=== PATIENT | female | born 1940 | race Caucasian/White ===

== ENCOUNTER 2017-11-06 19:26 | Emergency (ER) | payer MEDICARE, OTHER, SELFPAY ==
[2017-11-06 19:27] VITALS: BP 200/88; PULSE 82; PULSE 90; RESP 17; RESP 18; TEMP 36.4; O2SAT 97; O2SAT 98; BMI 33.3
[2017-11-06 19:46] VITALS: BP 180/83; PULSE 91; RESP 16; O2SAT 97
--- NOTE | 2017-11-06 19:57 | CT_ITS ---
STUDY: CT BRAIN WITHOUT CONTRAST REASON FOR EXAM: Female, 77 years old. Dizziness. RADIATION DOSAGE (If Supplied By Facility): CTDIvol = ( 60.81 ) mGy, DLP = ( 1044.28 ) mGycm TECHNIQUE: Transaxial CT imaging of the brain was performed without administration of intravenous contrast material. Individualized dose optimization techniques were used for this CT. COMPARISON: None. FINDINGS: Normal soft tissue structures. Normal calvarium. There is moderate cerebral atrophy with widening of the extra-axial spaces and ventricular dilatation. There are areas of decreased attenuation within the white matter tracts of the supratentorial brain, consistent with microvascular disease changes. Normal basal ganglia and thalami. Normal brainstem. Normal cerebellum. There is no intracranial hemorrhage. There are no findings of an acute ischemic infarction. Normal visualized paranasal sinuses. CT/Brain/Head without Contrast IMPRESSION: Senescent changes with no evidence of acute intracranial bleed, mass or ischemia. Electronically Signed: Walter Landa DO at 20:37 EDT , Service support ,
--- NOTE | 2017-11-06 20:24 | RAD_ITS ---
STUDY: X-RAY CHEST REASON FOR EXAM: Female, 77 years old. Cough with dizziness. TECHNIQUE: PA and lateral views of the chest. COMPARISON: None. FINDINGS: Prominent interstitial markings are present extending from the hilar region to the lung base bilaterally. Peribronchial cuffing and inflammation is noted. Left lower lobe early airspace disease is not excluded. There is no demonstrated pleural abnormality. Normal size heart. Normal mediastinum and leno. Normal visualized pulmonary arteries. There is atherosclerotic calcification of the aortic arch with tortuosity. Normal visualized thoracic spine. Normal visualized ribs, clavicles, and shoulders. There is no demonstrated abnormality of the visualized soft tissue structures of the upper abdomen. RAD/Chest PA and Lateral IMPRESSION: Findings consistent with peribronchial and termination and interstitial edema with left lower lobe early airspace disease not excluded. Recommend follow-up imaging to document resolution after appropriate treatment. Electronically Signed: Walter Landa DO at 20:38 EDT , Service support ,
--- NOTE | 2017-11-06 21:17 | ED.DCSUM_ITS ---
- ER Visit Summary Date of Service: 11/06/17 Chief Complaint: Cough, URI symptoms History of Present Illness: The patient is a 77 F whose had cough and head congestion for the past 3 days. She has had multiple ill contacts at [facility]. Today she had sinus pressure and she initially reported dizziness, although she describes it more as a semi-sensation because her sinuses are full. She did note her blood pressure to be elevated today. She has been taking some over-the -counter cold medicine and cough drops which may be contributing to this. Physical Examination: Vital signs include a blood pressure of 200/88, temperature 97.5, heart rate 82, respiratory rate 18, pulse ox 97% on room air. Patient is sitting upright in bed. She is alert and talkative. Head neck examination reveals TMs to be clear bilaterally. She has mild posterior pharyngeal drainage. She has bilateral anterior cervical lymphadenopathy. There is no meningismus. Heart is regular rate and rhythm. Lung sounds are clear. Abdomen is soft nontender. Neuro exam is normal. Test Results: Two-view chest x-ray shows peribronchial cuffing. Left lower lobe early airspace disease cannot be excluded. CT the head shows senescent changes without bleed. Normal sinuses are noted. Emergency Department Course and Treatment: Repeat vital signs include blood pressures in the 180s systolic. Patient will avoid using the [id number] cold medicine. She will be treated with a course of Levaquin. Treatment Plan: [] Disposition: Discharge Impression: Early left lower lobe pneumonia This note was generated with [employer] dictation software. It may contain incorrect words, spelling, and punctuation that were not noted in review of the chart prior to signing ED Disposition - Plan for ED Patient: Disposition: Home or Assisted Living Chief Complaint: Dizziness Instructions: ED Pneumonia Adult Prescriptions: Levofloxacin [Levaquin] 750 mg PO DAILY #4 tablet Referrals: Randy Diaz MD [Primary Care Provider] - 1 Week
[2017-11-06] MEDS: levoFLOXacin 750 MG Tablet PO (21:30)
[2017-11-06 21:37] VITALS: BP 185/87; PULSE 88; RESP 16
== END 2017-11-06 21:38 | disposition home or self-care (01) ==
PROVIDERS: Emergency Provider Emergency Medicine; Family Provider Family Medicine; PCP Family Medicine
DX: J18.9 Pneumonia, unspecified organism (principal); I48.91 Unspecified atrial fibrillation; I10 Essential (primary) hypertension; Z87.891 Personal history of nicotine dependence
CPT/HCPCS: 70450; 71046; 99283

== ENCOUNTER → 2017-12-17 08:57 | Outpatient (CLI) | payer MEDICARE, OTHER, SELFPAY | PROVIDERS: Family Provider Family Medicine; PCP Family Medicine; Visit Provider Family Medicine | DX: J18.1 Lobar pneumonia, unspecified organism (principal) | CPT/HCPCS: 71046 ==

== ENCOUNTER → 2018-02-06 10:02 | Outpatient (CLI) | payer MEDICARE, OTHER, SELFPAY ==
[2018-02-06 11:43] LABS: Absolute Lymphocyte Count 2.11 X10^3/ul (0.83-4.51); Absolute Neutrophil Count 5.2 X10^3/uL (2.0-7.7); Basophil# 0.02 X10^3/uL; Basophil% 0.2 % (0-1); Eosinophil# 0.24 X10^3/uL; Eosinophils% 2.9 % (0-5); Hematocrit 41.8 % (37-47); Hemoglobin 13.7 g/dl (12.0-15.0); Lymphocyte # 2.11 X10^3/ul (4.0); Lymphocyte % 25.9 % (19-41); Mean Corp Hgb Conc 32.8 g/gl (32-36); Mean Corpuscular Hgb 30.6 pg (27.0-32.0); Mean Corpuscular Volume 93.5 fL (81-99); Monocyte# 0.54 X10^3/uL; Monocyte% 6.6 % (0-10); Neutrophil # 5.19 X10^3/uL (2.7-7.7); Neutrophil % 63.9 % (47-70); Platelet Count 234 K/mm3 (150-450); RBC Distribution Width CV 13.1 % (11.6-14.6); RBC Distribution Width SD 44.7 fl (35.1-43.9); Red Blood Count 4.47 M/mm3 (4.2-5.4); White Blood Count 8.1 K/mm3 (4.4-11.0)
[2018-02-06 11:44] LABS: POSITIVE COUNT NO; POSITIVE DIFFERENTIAL NO; POSITIVE MORPHOLOGY NO
[2018-02-06 12:15] LABS: Thyroid Stim Hormone (TSH) 2.25 uIU/mL (0.358-3.74)
== END ==
PROVIDERS: Family Provider Family Medicine; PCP Family Medicine; Referring Provider Internal Medicine Cardiovascular Disease; Visit Provider Internal Medicine Cardiovascular Disease
DX: I48.0 Paroxysmal atrial fibrillation (principal)
CPT/HCPCS: 36415; 84443; 85025

== ENCOUNTER → 2018-02-24 08:28 | Outpatient (CLI) | payer MEDICARE, OTHER, SELFPAY ==
--- NOTE | 2018-02-24 08:29 | ECHOD_ITS ---
Reason For Study: AFIB Procedure This was a 2D Doppler, Color Flow transthoracic echocardiogram. Exam performed in department. Left Ventricle Normal LV size. Left ventricular systolic function is normal. The estimated ejection fraction is 65 %. Unable to assess diastolic dysfunction due to arrhythmia. No regional wall motion abnormalities noted. Right Ventricle Normal RV size. Normal systolic function. Atria The left atrium is mildly enlarged. Normal right atrium. Mitral Valve Normal mitral valve. Mild (1+) eccentric mitral valve insufficiency. Tricuspid Valve Normal tricuspid valve. Mild tricuspid valve insufficiency. Pulmonary artery systolic pressure is 34 mmHg. Aortic Valve Normal aortic valve. Pulmonic Valve Normal pulmonic valve. Great Vessels Normal aortic root. The pulmonary artery is normal size. Normal inferior vena cava. Pericardium/Pleural No pericardial effusion. MMode/2D Measurements & Calculations LVIDd: 4.3 cm IVSd: 1.0 cm Ao root diam: 2.7 cm LVIDs: 3.0 cm LVPWd: 0.93 cm RVDd: 3.2 cm FS: 30.1 % LAV(MOD-bp): 62.9 ml LA A4 area: 21.4 cm2 LA dimension(2D): 4.1 cm LAV(MOD-bp) Indexed: 32.2 ml/m2 LAV(MOD-sp2): 54.4 ml LAV(MOD-sp4): 62.0 ml RA A4 area: 18.6 cm2 Time Measurements MV dec time: 0.19 sec Doppler Measurements & Calculations MV E max tomás: 112.8 cm/sec Ao V2 max: 108.6 cm/sec LV V1 max: 93.1 cm/sec Ao max P.8 mmHg LV V1 max P.5 mmHg PA V2 max: 130.3 cm/sec TR max tomás: 274.1 cm/sec TR max P.3 mmHg Interpretation Summary Normal LV size. Left ventricular systolic function is normal. The estimated ejection fraction is 65 %. Unable to assess diastolic dysfunction due to arrhythmia. Mild (1+) eccentric mitral valve insufficiency. Ordering Physician: Jeremy Mchugh Referring Physician: BENNY CARMONA Performed By: Anna Randle, HERMINIO, RVT
== END ==
PROVIDERS: Family Provider Family Medicine; PCP Family Medicine; Referring Provider Internal Medicine Cardiovascular Disease; Visit Provider Internal Medicine Cardiovascular Disease
DX: I48.0 Paroxysmal atrial fibrillation (principal)
CPT/HCPCS: 93306

== ENCOUNTER → 2018-03-20 10:34 | Outpatient (CLI) | payer MEDICARE, OTHER, SELFPAY ==
[2018-03-20 09:23] VITALS: BMI 31.8
[2018-03-20 13:05] LABS: Anion Gap 7 (5-15); BUN 16 mg/dL (7-18); BUN/Creat Ratio 17.6 RATIO (10-20); Calcium,Total 8.9 mg/dL (8.5-10.1); Chloride 107 mmol/L (98-107); Creatinine, Serum 0.91 mg/dL (0.55-1.02); EST Glomerular Filtration Rate 64 mL/min (>60); Est Glom Filt Rate - Afr Amer 77 mL/min (>60); Glucose 102 mg/dL (74-106); Magnesium 2.3 mg/dL (1.6-2.6); Potassium 3.9 mmol/L (3.5-5.1); Sodium Level 139 mmol/L (136-145)
--- OUTSIDE RECORDS SUMMARY | 2018-05-15 12:46 | XMS RPT_ITS ---
:1940 Author Organization OHIP Support Name Relationship Address Phone R Unavailable Unavailable Unavailable KAMERON GRANADOS Unavailable [address] + [place] [address] MARINO RAMIREZ Unavailable [address] + [place] [address] R Unavailable Unavailable Unavailable KAMERON GRANADOS Unavailable [address] + [place] [address] PICHARDO RAMIREZ Unavailable [address] + [place] [address] R Unavailable Unavailable Unavailable KAMERON GRANADOS Unavailable [address] + [place] [address] PICHARDO, RAMIREZ Unavailable [address] + [place] [address] R Unavailable Unavailable Unavailable KAMERON GRANADOS Unavailable [address] + [place] [address] PICHARDO, RAMIREZ Unavailable [address] + [place] [address] R Unavailable Unavailable Unavailable KAMERON GRANADOS Unavailable [address] + [place] [address] PICHARDO RAMIREZ Unavailable [address] + [place] [address] R Unavailable Unavailable Unavailable KAMERON GRANADOS Unavailable [address] + [place] [address] PICHARDO RAMIREZ Unavailable [address] + [place] [address] R Unavailable Unavailable Unavailable KAMERON GRANADOS Unavailable [address] + [place] [address] PICHARDO RAMIREZ Unavailable [address] + [place] [address] AMANDA GRANADOS Unavailable + R Unavailable Unavailable Unavailable KAMERON GRANADOS Unavailable [address] + [place] [address] RAMIREZ PICHARDO Unavailable [address] + [place] [address] Care Team Providers Name Role Phone STENCEL, IBRAHIMA Primary Care Unavailable Bhavya Copeland Attending Unavailable STENCEL, IBRAHIMA Attending Unavailable STENCEL, IBRAHIMA Referring Unavailable STENCEL, IBRAHIMA Primary Care Unavailable Lolita, Jeremy Attending Unavailable STENCEL, IBRAHIMA Referring Unavailable Lolita, Jeremy Attending Unavailable Lolita, Cardwell Referring Unavailable STENCEL, IBRAHIMA Primary Care Unavailable Lolita, Cardwell Attending Unavailable Lolita, Jeremy Referring Unavailable Ry, Benny Primary Care Unavailable Lolita, Cardwell Attending Unavailable Lolita, Cardwell Referring Unavailable [place], Benny Primary Care Unavailable Lolita, Cardwell Consulting Unavailable Demetrice Greer Attending Unavailable STENCEL, IBRAHIMA Referring Unavailable GreerDemetrice zuniga Attending Unavailable Ry, Benny Primary Care Unavailable RY, BENNY Calloway Attending Unavailable RY, BENNY Calloway Referring Unavailable RY, BENNY Calloway Referring Unavailable RY, BENNY Calloway Referring Unavailable RY, BENNY Calloway Referring Unavailable Stencel, Ibrahima Admitting Unavailable Stencel, Ibrahima Attending Unavailable Stencel, Ibrahima Primary Care Unavailable Stencel, Ibrahima Admitting Unavailable Stencel, Ibrahima Attending Unavailable Stencel, Ibrahima Primary Care Unavailable Stencel, Ibrahima Attending Unavailable Stencel, Ibrahima Primary Care Unavailable Stencel, Ibrahima Admitting Unavailable Stencel, Ibrahima Attending Unavailable Stencel, Ibrahima Primary Care Unavailable Stencel, Ibrahima Attending Unavailable Stencel, Ibrahima Primary Care Unavailable Stencel, Ibrahima Attending Unavailable Stencel, Ibrahima Primary Care Unavailable Stencel, Ibrahima Attending Unavailable Stencel, Ibrahima Primary Care Unavailable Stencel, Ibrahima Primary Care Unavailable PROBLEMS PROBLEMS DATE TYPE CONDITION / CODE ATTENDING STATUS SOURCE 03/20/2018 Unknown I48.91 - Greer, Active [facility] Unspecified atrial Demetrice [facility] I48.91(ICD-10) Repository 02/24/2018 Unknown I48.0 - Paroxysmal Lolita, Jeremy Active [facility] atrial [facility] I48.0(ICD-10) Repository 02/20/2018 Active Encounter for NA Active [facility] screening for [facility] [place] malignant neoplasm Repository of colon / Z12.11(ICD-10) 02/06/2018 Unknown I10 - Essential Lolita, Cardwell Active [place] (primary) [facility] hypertension / Hospital I10(ICD-10) Repository 12/17/2017 Unknown J18.1 - Lobar STENCEL, Active [place] pneumonia, IBRAHIMA [facility] unspecified Hospital organism / Repository J18.1(ICD-10) PROCEDURES PROCEDURES No Procedure Records FoundRESULTS RESULTS CARDIOLOGY VISIT Observed: 03/24/2018 Status: F Source: [facility] REPORT 8:41 AM [facility] REPOSITORY [facility] [address] [place] [address] OFFICE VISIT Date of Service: 03/20/18 MR#: [id number] Acct: [id number] Name: TRICIA GRANADOS Rep #: [id number] : 1940 Provider: Demetrice Greer Age/Sex: 77/F Location: [facility] Status: Signed HPI HPI Chief Complaint: Follow-up visit. Details: TRICIA GRANADOS, is a 77 F who presents to the office today for a 6-week follow-up. She has a history of hypertension and paroxysmal atrial fibrillation. Patient was in our office 6 weeks ago and noted to be in atrial fibrillation. She is unaware of this. She underwent an echocardiogram. Heart function is normal. Atrium is mildly enlarged. No valvular issues. She does not have any palpitations. She does not have any lightheadedness, dizziness, syncopal episodes. She does not have any lower extremity edema. Her exercise tolerance is stable. She does not have any chest heaviness or tightness. Did have a discussion with patient regarding the financial cost of Eliquis. She is currently working with the drug [employer] to see if she qualifies for patient assistance. Intake Vital Signs03/20/18 Height 5 ft 6 in 03/20/18 Weight: 197 lb 03/20/18 Body Mass Index (BMI) 31.8 03/20/18 Blood Pressure 162/78 H Intake Visit Reasons: 6 wk f/up [employer] Worker Required: No Accompanied by: None Is patient in pain?: No Allergies caffeine Adverse Reaction (Verified 03/20/18 09:26) Other Medications alprazolam 0.5 mg tablet 0.5 mg PO BID-TID PRN 02/06/18 [History Confirmed 03/20/18] apixaban 5 mg tablet 5 mg PO BID #60 tab 02/06/18 [Rx Confirmed 03/20/18] diltiazem CD 180 mg capsule,extended release 24 hr 180 mg PO DAILY 02/06/18 [History Confirmed 03/20/18] losartan 100 mg tablet 100 mg PO DAILY 03/20/18 [History Confirmed 03/20/18] metoprolol succinate ER 50 mg tablet,extended release 24 hr 50 mg PO DAILY #30 tab 03/20/18 [Rx Confirmed 03/20/18] Ejection fraction %: 65 to 70 PFSH Medical History Essential (primary) hypertension (Chronic) Surgical History Hx of appendectomy (Resolved) H/O oophorectomy (Resolved) History of cholecystectomy (Resolved) H/O: hysterectomy (Resolved) Family History Father CVA (cerebral vascular accident) Mother Hypertension Heart disease CHF (congestive heart failure) Social History Smoking Status: Former smoker how long ago did patient quit smokin years age alcohol intake: never caffeine: No ROS Const Const: Negative for weakness, fatigue, fever(s) or headache(s) Eyes Eyes: Negative for blind spots, loss of peripheral vision or transient loss of vision ENT ENT: Negative for headache(s), dizziness, tinnitus or Nosebleed/epistaxis Cardio Chest Pain: No Palpitations: No Edema: None Muscle aches with walking: None Resp Respiratory: Negative for SOB with activity, SOB at rest, SOB orthopnea\SOB lying down or Cough GI GI: Negative nausea, vomiting, heartburn or vomiting blood/hematemesis : Negative for hematuria Musc Musc: Negative for muscle aches/ myalgia Neuro Neuro: Negative for weakness, headache(s), dizziness, near syncope, syncope, lightheadedness or orthostatic symptoms Vasile Hematologic/Lymphatic: Negative for easy bleeding Endo Endo: Negative for fatigue Cardiology Exam Const Appearance: cooperative, no acute distress and well developed Orientation: alert, awake and oriented x3 Head Head: normocephalic and atraumatic Mouth: moist mucous membranes Eyes General: appearance normal, both eyes and all related structures Conjunctivae: conjunctivae normal Pupils: PERRL EOM: EOM intact bilaterally Neck Neck: normal visual inspection, no lymphadenopathy and no JVD Carotids: Negative bruit Neck Mass: Negative Neck mass Chest Chest inspection: normal inspection of the chest and symmetric chest movement Auscultation: Bilateral: Clear to Auscultation Cardio Palpation: normal PMI Rate: regular rate Rhythm: irregularly irregular Heart sounds: S1 normal and S2 normal; negative rub, gallop or murmur GI GI: normal to inspection, soft, no hepatosplenomegaly and bowel sounds present; negative tender Neuro General: alert, awake, oriented x3, CN's II-XI intact bilaterally and moves all extremities Extremities Pulses: Normal: Right Posterior Tibial Pulse, Left Posterior Tibial Pulse, Right Radial Pulse, Left Radial Pulse Lower Extremity Edema: None: Bilateral Psych Psychological: normal affect Supplemental Info Echocardiogram in 2018 demonstrated Normal LV size. Left ventricular systolic function is normal. The estimated ejection fraction is 65 %. Unable to assess diastolic dysfunction due to arrhythmia. Mild (1+) eccentric mitral valve insufficiency. Assessment AND Plan 1. Essential hypertension I10 Plan - SAMANTHA Oconnor Blood pressure is elevated however patient does have a log of blood pressure readings. It is better controlled at home. She states that is normally high when she sees a physician. 2. Persistent atrial fibrillation I48.1 Plan - SAMANTHA Oconnor Patient appears to still be remaining in atrial fibrillation. Did have a long discussion with patient regarding a cardioversion. Patient wishes to think about this. She states that since she is not symptomatic at this time she would like to wait until after the holidays to reconsider this. She will continue with her current rate limiting medication in addition to her factor Xa inhibitor. She is aware that if she does not qualify for patient assistance for her Eliquis as it is costly for her that we may switch her to Coumadin. She wishes to not do this if possible. Plan Detail Other Orders Orders: Other Medications New: Refilled: Additional Comments - SAMANTHA Oconnor The above patient was discussed with Dr. Mchugh, he agrees with plan of care. Thank you for allowing us to participate in patient's plan of care, if you have any questions please do not hesitate to call. This note was generated using a voice recognition system and there may be incorrect words, spelling or punctuation errors that were not noted when reviewing the office note prior to saving. 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) Coding Level of Care Code Off vis,est,level 3 Diagnoses Essential hypertension I10 Persistent atrial fibrillation I48.1 Atrial fibrillation type: persistent Coding Level of Care Code Off vis,est,level 3 Diagnoses Essential hypertension I10 Persistent atrial fibrillation I48.1 Atrial fibrillation type: persistent 03/20/18 1025 <Electronically signed by Demetrice SINGH> Date Demetrice SINGH 03/24/18 0841<Electronically signed by Jeremy Mchugh MD> Cosigner Signature: Date (if applicable) Jeremy Mchugh MD CC: BASIC METABOLIC Collected: 03/20/2018 Status: F Source: [facility] PROFILE (BMP) 10:35 AM [facility] REPOSITORY TYPE CODE TESTS RESULT OUT OF RANGE REFERENCE UNITS LAB L501.0100 74-106 mg/dL Normal GLU 102 Result Comment: Fasting Glucose result from 100 to 125 mg/dL suggests IMPAIRED HOMEOSTASIS per A.D.A. criteria. Please note revised GLUCOSE reference range effective 2017. LAB L501.1000 7-18 mg/dL Normal BUN 16 LAB L501.1100 0.55-1.02 mg/dL Normal CREAT,SERUM 0.91 Result Comment: The validity of the calculated GFR AND GFRAA in patients over 70 years has not been determined. Clinical correlation is essential. LAB L501.1110 >60 mL/min Normal EST GFR 64 Result Comment: Non- GFR Calc LAB L501.1115 >60 mL/min Normal EST GFR - AA 77 Result Comment: GFR Calc LAB L501.1300 10-20 RATIO Normal BUN/CRE 17.6 LAB L501.2200 8.5-10.1 mg/dL CA Normal 8.9 LAB L501.5300 136-145 mmol/L NA Normal 139 LAB L501.5600 3.5-5.1 mmol/L K Normal 3.9 LAB L501.5900 98-107 mmol/L CL Normal 107 LAB L501.6100 21.0-32.0 mmol/L Normal CO2 25.0 LAB L501.6200 5-15 Normal GAP 7 Performed By: #### L500.2500, L501.5200 #### [facility] [address] [place], [address] MAGNESIUM Collected: 03/20/2018 Status: F Source: [facility] 10:35 AM [facility] REPOSITORY TYPE CODE TESTS RESULT OUT OF RANGE REFERENCE UNITS LAB L501.5200 1.6-2.6 mg/dL Normal MG 2.3 Performed By: #### L500.2500, L501.5200 #### [facility] [address] [place], [address] PROGRESS Observed: 03/17/2018 Status: COMPLETED Source: [facility] 2:16 PM [facility] REPOSITORY O ID: [id number] Author: Anant Quigley LPN Service: (none) Author Type: (none) Type: Progress Notes Filed: 03/17/2018 2:37 PM Note Text: Manual Readin/92 Pulse: 86 BP Topher average: 162/87 P: 80 Repeat BP Check: 184/91 P77 #1 162/84 P82 #2 166/89 P80 #3 158/96 P79 #4 162/83 P78 #5 164/82 P82 #6 Reason for blood pressure check - Last BP elevated and Medication adjustment Patient is: Taking medication as prescribed Yes Took medication today Yes If no, date medication last taken N/A Experiencing side effects No BP continued to be elevated at nurse visit 03/03/18. Losartan was increased to 100mg daily at that time. States that she is not happy with the medication increase. No SE noted. States that she gets very anxious when she comes to the office, causing her BP to elevate. When she left office after last appt her BP at home was 129/68 (home cuff was recently checked and found to be within a few points of manual in office). States that she is also currently feeling depressed d/t cost of her Eliquis medication ( $211); unable to get assistance. Recent home readings were 125-145/69-75. Has appt with Dr Mchugh on 03/20/18. Denies any chest pain, shortness of breath, dizziness, or headaches. No caffeine use. Past personal history of tobacco use; no current exposure. Alert and oriented. Pt has been identified by name and birthdate: Yes Allergies reviewed: Yes Latex allergy: no. Medication - prescribed and OTC reviewed and updated: Yes Do you need any prescription refills prior to your next visit: No Health Maintenance: Reviewed and not up to date and provider notified Patient advised that she would be contacted after review by Ed Ramos PA-C. Anant Quigley LPN CNNURSE Observed: 03/17/2018 Status: COMPLETED Source: [facility] 2:15 PM [facility] REPOSITORY Nurse Visit (FAMPWS) TRICIA GRANADOS ([id number]) 1940 F Date Time Provider Department 03/17/18 2:15 PM [facility] During your visit today, we recorded the following information about you: Pulse Blood pressure 80/minute 162/87 Anant Quigley LPN 03/17/2018 2:37 PM Signed Manual Readin/92 Pulse: 86 BP Topher average: 162/87 P: 80 Repeat BP Check: 184/91 P77 #1 162/84 P82 #2 166/89 P80 #3 158/96 P79 #4 162/83 P78 #5 164/82 P82 #6 Reason for blood pressure check - Last BP elevated and Medication adjustment Patient is: Taking medication as prescribed Yes Took medication today Yes If no, date medication last taken N/A Experiencing side effects No BP continued to be elevated at nurse visit 03/03/18. Losartan was increased to 100mg daily at that time. States that she is not happy with the medication increase. No SE noted. States that she gets very anxious when she comes to the office, causing her BP to elevate. When she left office after last appt her BP at home was 129/68 (home cuff was recently checked and found to be within a few points of manual in office). States that she is also currently feeling depressed d/t cost of her Eliquis medication ( $211); unable to get assistance. Recent home readings were 125-145/69-75. Has appt with Dr Mchugh on 03/20/18. Denies any chest pain, shortness of breath, dizziness, or headaches. No caffeine use. Past personal history of tobacco use; no current exposure. Alert and oriented. Pt has been identified by name and birthdate: Yes Allergies reviewed: Yes Latex allergy: no. Medication - prescribed and OTC reviewed and updated: Yes Do you need any prescription refills prior to your next visit: No Health Maintenance: Reviewed and not up to date and provider notified Patient advised that she would be contacted after review by Ed Ramos PA-C. Anant Quigley LPN Referring Provider: BENNY RAZA [[id number]] Allergies As of Date: 03/17/2018 Noted Allergy Reaction CAFFEINE 02/16/2014 5 - Intolerance Date Reviewed: 02/15/2018 Reviewed by: Michelle Marie Ma - Fully Assessed Reason for Visit: Blood Pressure Check [195] Primary Visit Diagnosis:Essential hypertension [I10] Prescriptions as of 03/17/2018 Sig: LOSARTAN 100 MG TABLET Take 1 tablet by mouth once d* METOPROLOL SUCCINATE ER 25 MG* Take 50 mg by mouth once veronica* ALPRAZOLAM 0.5 MG TABLET XANAX 0.5 MG TABS CARTIA XT 180 MG CAPSULE,EXTE* APIXABAN 5 MG TABLET Take 5 mg by mouth twice veronica* Problem List As Of Date 03/17/2018 Noted Resolved Paroxysmal atrial fibrillation (HCC) [I48.0] INVALID FOR* More... Hypertension [I10] INVALID FOR* More... Chronic anticoagulation [Z79.01] INVALID FOR* Anxiety [F41.9] INVALID FOR* Encounter Status:Closed by ANANT QUIGLEY LPN on 03/17/18 PROGRESS Observed: 03/04/2018 Status: COMPLETED Source: [facility] 1:03 PM [facility] REPOSITORY HNO ID: [id number] Author: Margarita Chamberlain (Sw) Service: (none) Author Type: Supervisor Boiler Repair Type: Progress Notes Filed: 03/04/2018 1:04 PM Note Text: Melisa faxed [employer] patient assistance application to [employer] for patient Eddi. PROGRESS Observed: 03/03/2018 Status: COMPLETED Source: [facility] 1:48 PM [facility] REPOSIT[facility] HNO ID: [id number] Author: Michelle Marie Ma Service: (none) Author Type: (none) Type: Progress Notes Filed: 03/04/2018 1:04 PM Note Text: Form signed by provider, to be put in mailbox. PROGRESS Observed: 03/03/2018 Status: COMPLETED Source: [facility] 11:30 AM [facility] REPOSITORY HNO ID: [id number] Author: Margarita ByersKatey Chamberlain Service: (none) Author Type: Supervisor Boiler Repair Type: Progress Notes Filed: 03/04/2018 1:04 PM Note Text: Patient brought in [employer] patient assistance application. Patient completed her portion and attached income information. Melisa will take prescriber section to Dr. Raza for prescription. Once complete Melisa will fax all forms back to [employer] CNNURSE Observed: 03/03/2018 Status: COMPLETED Source: [facility] 11:00 AM [facility] REPOSITORY Nurse Visit (FAMPWS) TRICIA GRANADOS ([id number]) 1940 F Date Time Provider Department 03/03/18 11:00 AM DC NURSE [facility] During your visit today, we recorded the following information about you: Pulse Blood pressure 78/minute 157/81 Anant Quigley LPN 03/03/2018 11:04 AM Signed Manual Readin/72 Pulse: 84 (right arm) 172/80 (left arm) Home cuff (arm): 173/87 P: 85 (right arm) BP Topher average: 157/81 P: 78 Repeat BP Check: 172/93 P83 #1 151/82 P75 #2 168/85 P84 #3 150/78 P82 #4 161/83 P75 #5 153/79 P76 #6 Reason for blood pressure check - Last BP elevated Patient is: Taking medication as prescribed Yes Took medication today Yes If no, date medication last taken N/A Experiencing side effects No BP was elevated at last appt 02/15/18. No BP medication changes were made at that time. Taking all medications as prescribed. Denies any chest pain, shortness of breath, dizziness, or headaches. No caffeine use. Past personal history of tobacco use; no current exposure. Alert and oriented. Pt has been identified by name and birthdate: Yes Allergies reviewed: Yes Latex allergy: no. Medication - prescribed and OTC reviewed and updated: Yes Do you need any prescription refills prior to your next visit: No Health Maintenance: Reviewed and not up to date and provider notified Patient advised that she would be contacted after review by PCP. Anant Quigley LPN Referring Provider: BENNY RAZA [[id number]] Allergies As of Date: 03/03/2018 Noted Allergy Reaction CAFFEINE 02/16/2014 5 - Intolerance Date Reviewed: 02/15/2018 Reviewed by: Michelle Marie Ma - Fully Assessed Reason for Visit: Blood Pressure Check [195] Primary Visit Diagnosis:Essential hypertension [I10] Prescriptions as of 03/03/2018 Sig: METOPROLOL SUCCINATE ER 25 MG* Take 50 mg by mouth once veronica* LOSARTAN 50 MG TABLET ALPRAZOLAM 0.5 MG TABLET XANAX 0.5 MG TABS CARTIA XT 180 MG CAPSULE,EXTE* APIXABAN 5 MG TABLET Take 5 mg by mouth twice veronica* Problem List As Of Date 03/03/2018 Noted Resolved Paroxysmal atrial fibrillation (HCC) [I48.0] INVALID FOR* More... Hypertension [I10] INVALID FOR* More... Chronic anticoagulation [Z79.01] INVALID FOR* Anxiety [F41.9] INVALID FOR* Encounter Status:Closed by ANANT QUIGLEY LPN on 03/03/18 PROGRESS Observed: 03/03/2018 Status: COMPLETED Source: [facility] 10:42 AM [facility] RE[facility] O ID: [id number] Author: Anant Quigley LPN Service: (none) Author Type: (none) Type: Progress Notes Filed: 03/03/2018 11:04 AM Note Text: Manual Readin/72 Pulse: 84 (right arm) 172/80 (left arm) Home cuff (arm): 173/87 P: 85 (right arm) BP Topher average: 157/81 P: 78 Repeat BP Check: 172/93 P83 #1 151/82 P75 #2 168/85 P84 #3 150/78 P82 #4 161/83 P75 #5 153/79 P76 #6 Reason for blood pressure check - Last BP elevated Patient is: Taking medication as prescribed Yes Took medication today Yes If no, date medication last taken N/A Experiencing side effects No BP was elevated at last appt 02/15/18. No BP medication changes were made at that time. Taking all medications as prescribed. Denies any chest pain, shortness of breath, dizziness, or headaches. No caffeine use. Past personal history of tobacco use; no current exposure. Alert and oriented. Pt has been identified by name and birthdate: Yes Allergies reviewed: Yes Latex allergy: no. Medication - prescribed and OTC reviewed and updated: Yes Do you need any prescription refills prior to your next visit: No Health Maintenance: Reviewed and not up to date and provider notified Patient advised that she would be contacted after review by PCP. Anant PAYAN Observed: 03/03/2018 Status: COMPLETED Source: [place] 12:00 AM [facility] REPOSITORY [employer] (ANICETO) TRICIA GRANADOS ([id number]) 1940 F Date Time Provider Department 03/03/18 MARGARITA CHAMBERLAIN (MELISA) ANICETO During your visit today, we recorded the following information about you: MAYCOL Latham 03/04/2018 1:04 PM Signed Patient brought in [employer] patient assistance application. Patient completed her portion and attached income information. Melisa will take prescriber section to Dr. Raza for prescription. Once complete Melisa will fax all forms back to [employer]. Michelle Marie Ma 03/04/2018 1:04 PM Signed Form signed by provider, to be put in MELISA mailbox. MAYCOL Latham 03/04/2018 1:04 PM Signed Melisa faxed [employer] patient assistance application to company for patient Eddi. Allergies As of Date: 03/03/2018 Noted Allergy Reaction CAFFEINE 02/16/2014 5 - Intolerance Date Reviewed: 02/15/2018 Reviewed by: Michelle Marie Ma - Fully Assessed Prescriptions as of 03/03/2018 Sig: LOSARTAN 100 MG TABLET Take 1 tablet by mouth once d* METOPROLOL SUCCINATE ER 25 MG* Take 50 mg by mouth once veronica* ALPRAZOLAM 0.5 MG TABLET XANAX 0.5 MG TABS CARTIA XT 180 MG CAPSULE,EXTE* APIXABAN 5 MG TABLET Take 5 mg by mouth twice veronica* X LOSARTAN 50 MG TABLET Problem List As Of Date 03/03/2018 Noted Resolved Paroxysmal atrial fibrillation (HCC) [I48.0] INVALID FOR* More... Hypertension [I10] INVALID FOR* More... Chronic anticoagulation [Z79.01] INVALID FOR* Anxiety [F41.9] INVALID FOR* Follow-up and Disposition History Recorded Encounter Status:Closed by MARGARITA SCHMITZ on 03/04/18 ECHOCARDIOGRAM COMPLETE Observed: 02/24/2018 Status: F Source: [facility] 10:41 AM [facility] REPOSITORY [facility] Cardiovascular Services [address] [place] [id number] Echo Complete 02/24/18 0953 MR#: [id number] Acct: [id number] Name: TRICIA GRANADOS Rep #: [id number] : 1940 77 From: Jeremy Mchugh MD Attending Dr: Jeremy Mchugh MD Status: REG CLI Ordering Dr: Jeremy Mchugh MD Date: 02/24/18 Location: [facility] Sex: F C Admitted: Reason For Study: AFIB Procedure This was a 2D Doppler, Color Flow transthoracic echocardiogram. Exam performed in department. Left Ventricle Normal LV size. Left ventricular systolic function is normal. The estimated ejection fraction is 65 %. Unable to assess diastolic dysfunction due to arrhythmia. No regional wall motion abnormalities noted. Right Ventricle Normal RV size. Normal systolic function. Atria The left atrium is mildly enlarged. Normal right atrium. Mitral Valve Normal mitral valve. Mild (1+) eccentric mitral valve insufficiency. Tricuspid Valve Normal tricuspid valve. Mild tricuspid valve insufficiency. Pulmonary artery systolic pressure is 34 mmHg. Aortic Valve Normal aortic valve. Pulmonic Valve Normal pulmonic valve. Great Vessels Normal aortic root. The pulmonary artery is normal size. Normal inferior vena cava. Pericardium/Pleural No pericardial effusion. MMode/2D Measurements AND Calculations LVIDd: 4.3 cm IVSd: 1.0 cm Ao root diam: 2.7 cm LVIDs: 3.0 cm LVPWd: 0.93 cm RVDd: 3.2 cm FS: 30.1 % LAV(MOD-bp): 62.9 ml LA A4 area: 21.4 cm2 LA dimension(2D): 4.1 cm LAV(MOD-bp) Indexed: 32.2 ml/m2 LAV(MOD-sp2): 54.4 ml LAV(MOD-sp4): 62.0 ml RA A4 area: 18.6 cm2 Time Measurements MV dec time: 0.19 sec Doppler Measurements AND Calculations MV E max tomás: 112.8 cm/sec Ao V2 max: 108.6 cm/sec LV V1 max: 93.1 cm/sec Ao max P.8 mmHg LV V1 max P.5 mmHg PA V2 max: 130.3 cm/sec TR max tomás: 274.1 cm/sec TR max P.3 mmHg Interpretation Summary Normal LV size. Left ventricular systolic function is normal. The estimated ejection fraction is 65 %. Unable to assess diastolic dysfunction due to arrhythmia. Mild (1+) eccentric mitral valve insufficiency. Ordering Physician: Jeremy Mchugh Referring Physician: BENNY RAZA Performed By: Anna Randle, HERMINIO, RVT 02/24/18 1041 Date Jeremy Mchugh MD CC: Jeremy Mchugh MD; Benny Raza MD Date Dictated: 02/24/18 0953 Date Transcribed: 02/24/18 1041 Commercial Mortgage Broker: Signed FECAL OCCULT BLD Collected: 02/20/2018 Status: F Source: [facility] 8:00 AM [facility] REPOSITORY TYPE CODE TESTS RESULT OUT OF REFERENCE UNITS RANGE LAB IFO Negative Immuno Negative FOB Result Comment: This test was developed and its performance characteristics determined by [facility]'s [facility] [place] ([facility]). It has not been cleared or approved by the FDA. -[facility] is regulated under CLIA as qualified to perform high-complexity testing. This test is used for clinical purposes. It should not be regarded as investigational or for research. Performed By: #### IFOBT #### [facility] [address] [place], [place] [address] PROGRESS Observed: 02/15/2018 Status: COMPLETED Source: [place] 10:39 AM [facility] REPOSITORY HNO ID: [id number] Author: Benny Raza Service: (none) Author Type: Physician Type: Progress Notes Filed: 02/15/2018 11:10 AM Note Text: Patient presents with: Establish Care HPI: Patient presents today for office visit for to establish care. Cardio:diagnosed with a fib and flutter. Placed on eliquis and getting an echo soon. No chest pain or palpitations. No dizziness or lightheadedness. HYPERTENSION:bp is slightly up on arrival. Tolerating meds well. Brings in list of bp and pulse. Have been much better. PSYCH:oarrs done. Not recently filled. Uses very rarely. Understands risks etc. Anticoagulation: recently started. No bleeding issues. Reviewed labs from Dr. Mchugh including cbc and tsh. Apparently rest of labs have been ok in the last year. Diagnosed with pneumonia in November and had repeat xray after and was clear. MEDICATIONS: Current Outpatient Prescriptions: metoprolol succinate ER (TOPROL XL) 25 mg 24 hr tablet Take 50 mg by mouth once daily. losartan (COZAAR) 50 mg tablet ALPRAZolam (XANAX) 0.5 mg tablet XANAX 0.5 MG TABS CARTIA XT 180 mg 24 hr capsule apixaban (ELIQUIS) 5 mg tab(s) Take 5 mg by mouth twice daily. No current facility-administered medications for this visit. ALLERGIES: ALLERGIES Allergen Reactions - Caffeine Intolerance PAST MEDICAL HISTORY Diagnosis Date - Anxiety - Atrial fibrillation (HCC) - HTN (hypertension) PAST SURGICAL HISTORY Procedure Laterality Date - HYSTERECTOMY bleediing issues. no malignancy No family history on file. Social History Marital status: Spouse name: Years of education: Number of children: Social History Main Topics Smoking status: Former Smoker Packs/day: 0.00 Years: 0.00 Smokeless tobacco: Never Used Alcohol use: No Drug use: No Reviewed current medications, allergies, past medical history, surgical history, family history and social history today. REVIEW OF SYSTEMS GI: Negative for abdominal discomfort, blood in stools or black stools, change in bowel habit : No history of dysuria, frequency or incontinence SKIN: has a benign appearing mole on her ear. is easily traumatized. would like to see derm All other reviewed and negative other than HPI. HEALTH MAINTENANCE: Reviewed health maintenance issues today and recommended the following in detail. BP CONTROLLED (<130/80) due on 1958 DTAP,TDAP,TD(1 - Tdap) due on 09/05/1959 FECAL OCCULT BLOOD -recommended. BONE DENSITY-was good. VITALS: BP 160/72 Pulse 72 Resp 16 Ht 167.6 cm (5' 6) Wt 90.7 kg (200 lb) BMI 32.28 kg/m? Last 4 Encounter Wt Readings: Date: Wt: 02/15/2018 90.7 kg (200 lb) PHYSICAL EXAMINATION: General appearance: Well appearing, alert, in no acute distress, well-hydrated, well nourished. Skin: benign lesion by right ear. Head: Normocephalic, no masses, lesions, tenderness or abnormalitie Lungs: Lungs clear to auscultation. No wheezing, rhonchi, rales Heart: irrregular. Normal s1 and s2 Abdomen: Normal abdominal exam, Abdomen soft, non-tender. Bowel sounds normal. No masses, organomegaly Extremities: No deformities, edema, skin discoloration, clubbing or cyanosis. Good capillary refill. Musculoskeletal: No joint swelling, deformity, or tenderness Peripheral pulses: Normal ASSESSMENT/PLAN: 1. Paroxysmal atrial fibrillation (HCC) - ICD9: 427.31, ICD10: I48.0 (primary diagnosis) - continue meds. Call if any issues. 2. Essential hypertension - ICD9: 401.9, ICD10: I10 - suboptimal control - Continue current medication(s) - Recommended regular aerobic exercise. - Recommend home blood pressure monitoring, to bring results in on next visit - Recheck bp in two weeks. Bring in home cuffs to validate. - Goal of BP <130/80 3. Chronic anticoagulation - ICD9: V58.61, ICD10: Z79.01 - stay on eliquis. See if we can get any assistance. 4. Anxiety - ICD9: 300.00, ICD10: F41.9 - uses meds very, very rarely. 5. Screening for colon cancer - ICD9: V76.51, ICD10: Z12.11 - FECAL OCCULT BLOOD TEST 6. Skin lesion - ICD9: 709.9, ICD10: L98.9 -will send at her request. - CONSULT TO DERMATOLOGY Benny Raza MD CNOV Observed: 02/15/2018 Status: COMPLETED Source: [facility] 10:20 AM [facility] REPOSITORY Office Visit (FAMPWS) TRICIA GRANADOS ([id number]) 1940 F Date Time Provider Department 02/15/18 10:20 AM BENNY RAZA During your visit today, we recorded the following information about you: Pulse Respiration Blood pressure Weight 72/minute 16/minute 160/72 90.7 kg Height 1.676 m Benny Raza MD 02/15/2018 11:10 AM Signed Patient presents with: Establish Care HPI: Patient presents today for office visit for to establish care. Cardio:diagnosed with a fib and flutter. Placed on eliquis and getting an echo soon. No chest pain or palpitations. No dizziness or lightheadedness. HYPERTENSION:bp is slightly up on arrival. Tolerating meds well. Brings in list of bp and pulse. Have been much better. PSYCH:oarrs done. Not recently filled. Uses very rarely. Understands risks etc. Anticoagulation: recently started. No bleeding issues. Reviewed labs from Dr. Mchugh including cbc and tsh. Apparently rest of labs have been ok in the last year. Diagnosed with pneumonia in November and had repeat xray after and was clear. MEDICATIONS: Current Outpatient Prescriptions: metoprolol succinate ER (TOPROL XL) 25 mg 24 hr tablet Take 50 mg by mouth once daily. losartan (COZAAR) 50 mg tablet ALPRAZolam (XANAX) 0.5 mg tablet XANAX 0.5 MG TABS CARTIA XT 180 mg 24 hr capsule apixaban (ELIQUIS) 5 mg tab(s) Take 5 mg by mouth twice daily. No current facility-administered medications for this visit. ALLERGIES: ALLERGIES Allergen Reactions - Caffeine Intolerance PAST MEDICAL HISTORY Diagnosis Date - Anxiety - Atrial fibrillation (HCC) - HTN (hypertension) PAST SURGICAL HISTORY Procedure Laterality Date - HYSTERECTOMY 1969' bleediing issues. no malignancy No family history on file. Social History Marital status: Spouse name: Years of education: Number of children: Social History Main Topics Smoking status: Former Smoker Packs/day: 0.00 Years: 0.00 Smokeless tobacco: Never Used Alcohol use: No Drug use: No Reviewed current medications, allergies, past medical history, surgical history, family history and social history today. REVIEW OF SYSTEMS GI: Negative for abdominal discomfort, blood in stools or black stools, change in bowel habit : No history of dysuria, frequency or incontinence SKIN: has a benign appearing mole on her ear. is easily traumatized. would like to see derm All other reviewed and negative other than HPI. HEALTH MAINTENANCE: Reviewed health maintenance issues today and recommended the following in detail. BP CONTROLLED (<130/80) due on 1958 DTAP,TDAP,TD(1 - Tdap) due on 09/05/1959 FECAL OCCULT BLOOD -recommended. BONE DENSITY-was good. VITALS: BP 160/72 Pulse 72 Resp 16 Ht 167.6 cm (5' 6) Wt 90.7 kg (200 lb) BMI 32.28 kg/m? Last 4 Encounter Wt Readings: Date: Wt: 02/15/2018 90.7 kg (200 lb) PHYSICAL EXAMINATION: General appearance: Well appearing, alert, in no acute distress, well-hydrated, well nourished. Skin: benign lesion by right ear. Head: Normocephalic, no masses, lesions, tenderness or abnormalitie Lungs: Lungs clear to auscultation. No wheezing, rhonchi, rales Heart: irrregular. Normal s1 and s2 Abdomen: Normal abdominal exam, Abdomen soft, non-tender. Bowel sounds normal. No masses, organomegaly Extremities: No deformities, edema, skin discoloration, clubbing or cyanosis. Good capillary refill. Musculoskeletal: No joint swelling, deformity, or tenderness Peripheral pulses: Normal ASSESSMENT/PLAN: 1. Paroxysmal atrial fibrillation (HCC) - ICD9: 427.31, ICD10: I48.0 (primary diagnosis) - continue meds. Call if any issues. 2. Essential hypertension - ICD9: 401.9, ICD10: I10 - suboptimal control - Continue current medication(s) - Recommended regular aerobic exercise. - Recommend home blood pressure monitoring, to bring results in on next visit - Recheck bp in two weeks. Bring in home cuffs to validate. - Goal of BP <130/80 3. Chronic anticoagulation - ICD9: V58.61, ICD10: Z79.01 - stay on eliquis. See if we can get any assistance. 4. Anxiety - ICD9: 300.00, ICD10: F41.9 - uses meds very, very rarely. 5. Screening for colon cancer - ICD9: V76.51, ICD10: Z12.11 - FECAL OCCULT BLOOD TEST 6. Skin lesion - ICD9: 709.9, ICD10: L98.9 -will send at her request. - CONSULT TO DERMATOLOGY Benny Raza MD Referring Provider: BENNY RAZA [[id number]] Allergies As of Date: 02/15/2018 Noted Allergy Reaction CAFFEINE 02/16/2014 5 - Intolerance Date Reviewed: 02/15/2018 Reviewed by: Michelle Marie Ma - Fully Assessed Reason for Visit: Establish Care [42] Primary Visit Diagnosis:Paroxysmal atrial fibrillation (HCC) [I48.0] Other Visit Diagnoses:Essential hypertension [I10] Chronic anticoagulation [Z79.01] Anxiety [F41.9] Screening for colon cancer [Z12.11] Skin lesion [L98.9] Order(s):FECAL OCCULT BLOOD TEST [SQIFOBT] Order #: [id number] FUTURE CONSULT TO DERMATOLOGY [9006] Order #: [id number]: 1 Prescriptions as of 02/15/2018 Sig: METOPROLOL SUCCINATE ER 25 MG* Take 50 mg by mouth once veronica* LOSARTAN 50 MG TABLET ALPRAZOLAM 0.5 MG TABLET XANAX 0.5 MG TABS CARTIA XT 180 MG CAPSULE,EXTE* APIXABAN 5 MG TABLET Take 5 mg by mouth twice veronica* Problem List As Of Date 02/15/2018 Noted Resolved Paroxysmal atrial fibrillation (HCC) [I48.0] INVALID FOR* More... Hypertension [I10] INVALID FOR* Chronic anticoagulation [Z79.01] INVALID FOR* Anxiety [F41.9] INVALID FOR* Disposition: Return in about 6 months (around 08/16/2018). Follow-up and Disposition History Recorded Encounter Status:Closed by BENNY RAZA MD on 02/15/18 CBC W/DIFF, AUTOMATED Collected: 02/06/2018 Status: F Source: [facility] 10:37 AM [facility] REPOSITORY TYPE CODE TESTS RESULT OUT OF RANGE REFERENCE UNITS LAB L100.1000 4.4-11.0 K/mm3 Normal WBC 8.1 LAB L100.1200 4.2-5.4 M/mm3 Normal RBC 4.47 LAB L100.1300 12.0-15.0 g/dl Normal HGB 13.7 LAB L100.1400 37-47 % Normal HCT 41.8 LAB L100.1500 81-99 fL Normal MCV 93.5 LAB L100.1600 27.0-32.0 pg Normal MCH 30.6 LAB L100.1700 32-36 g/gl Normal MCHC 32.8 LAB L100.1810 11.6-14.6 % Normal RDW CV 13.1 LAB L100.1820 35.1-43.9 fl High RDW SD 44.7 LAB L100.1900 150-450 K/mm3 Normal PLT 234 LAB L100.2000 6.2-12.0 fl Normal MPV 11.0 LAB L100.2100 47-70 % Normal NEUT% 63.9 LAB L100.2200 19-41 % Normal LY% 25.9 LAB L100.2300 0-10 % Normal MONO% 6.6 LAB L100.2400 0-5 % Normal EO% 2.9 LAB L100.2500 0-1 % Normal BASO% 0.2 LAB L100.2550 0.0-0.9 % Normal IM GRAN % 0.500 Result Comment: IG% - Immature Granulocytes (promyelocytes, myelocytes and metamyelocytes) > 1% indicates that a LEFT SHIFT is Present. LAB L100.2620 2.0-7.7 X10 3/uL Normal Absolute Neut 5.2 LAB L100.2720 0.83-4.51 X10 3/ul Normal Absolute Lymph 2.11 Performed By: #### L100.0100, L501.9520 #### [facility] [address] [place], [place], [id number] THYROID STIM HORMONE Collected: 02/06/2018 Status: F Source: [facility] ([facility]) 10:37 AM [facility] REPOSITORY TYPE CODE TESTS RESULT OUT OF RANGE REFERENCE UNITS LAB L501.9520 0.358-3.74 uIU/mL Normal TSH 2.25 Performed By: #### L100.0100, L501.9520 #### [facility] [address] [place], [address] CARDIOLOGY VISIT Observed: 02/06/2018 Status: F Source: [facility] RE[facility] 9:44 AM [facility] REPOSITORY [facility] [address] [place] [address] OFFICE VISIT Date of Service: 02/06/18 MR#: [id number] Acct: [id number] Name: TRICIA GRANADOS Rep #: [id number] : 1940 Provider: Jeremy Mchugh MD Age/Sex: 77/F Location: [facility] Status: Signed HPI HPI Chief Complaint: Follow-up visit. Details: TRICIA GRANADOS, is a 77 F who presents to the office today for her yearly follow-up visit. She has a history of hypertension as well as paroxysmal atrial fibrillation. She says that she has been doing well and has not had any symptomatology except for when she had a pneumonia. She has been compliant with her medications she has not had any neck arm or jaw discomfort suggest angina. No dizziness or diaphoresis no near syncope or syncope. Her physical exam demonstrates clear lung martin irregular heartbeat and no pedal edema. 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: No Accompanied by: none Is patient in pain?: No Allergies caffeine Adverse Reaction (Verified 02/06/18 08:53) Other Medications alprazolam 0.5 mg tablet 0.5 mg PO BID-TID PRN 02/06/18 [History Confirmed 02/06/18] apixaban 5 mg tablet 5 mg PO BID #60 tab 02/06/18 [Rx Confirmed 02/06/18] diltiazem CD 180 mg capsule,extended release 24 hr 180 mg PO DAILY 02/06/18 [History Confirmed 02/06/18] losartan 50 mg tablet 50 mg PO DAILY 02/06/18 [History Confirmed 02/06/18] metoprolol succinate ER 50 mg tablet,extended release 24 hr 50 mg PO DAILY #60 tab 02/06/18 [Rx Confirmed 02/06/18] [facility] Medical History H/O: hysterectomy (Resolved) Essential (primary) hypertension (Chronic) Surgical History Hx of appendectomy (Resolved) H/O oophorectomy (Resolved) History of cholecystectomy (Resolved) Family History Father CVA (cerebral vascular accident) Mother Hypertension Social History Smoking Status: Former smoker ROS Const Const: Negative for fatigue, weakness, night sweats, excessive sweating, frequent falls, headache(s) or daytime sleepiness Eyes Eyes: Negative for loss of peripheral vision, transient loss of vision, blind spots, double vision or blurry vision ENT ENT: Negative for headache(s), dizziness, balance problems, Nosebleed/epistaxis, tongue swelling or lip swelling Cardio Chest Pain: No Palpitations: No Edema: None Muscle aches with walking: None Resp Respiratory: Negative for SOB at rest, SOB orthopnea\SOB lying down, Cough, paroxysmal nocturnal dyspnea or SOB with activity GI GI: Negative nausea, vomiting, heartburn, black,tarry stools or bright, red blood in stools : Negative for hematuria Musc Musc: Negative for balance problems, muscle aches/ myalgia, muscle weakness or joint pain Skin Skin: Negative non-healing lesions, unusual bruising or rash Neuro Neuro: Negative for weakness, frequent falls, headache(s), double vision, dizziness, lightheadedness, orthostatic symptoms, blurry vision or lack of coordination Vasile Hematologic/Lymphatic: Negative for easy bruising or easy bleeding Endo Endo: Negative for fatigue, excessive sweating, cold intolerance, heat intolerance, increased thirst/drinking or hair loss Psych Psych: Negative for anxiety or depression Allergy Allergy/Immunology: Negative for throat swelling, Negative for tongue swelling, Negative for hives, Negative for rash, Negative for lip swelling Cardiology Exam Const Appearance: cooperative, healthy appearing, well developed, well groomed and no acute distress Nutritional Appearance: well nourished and average body habitus Orientation: alert, awake and oriented x3 Head Head: normal to inspection, normocephalic and atraumatic Ears: hearing grossly normal bilaterally and external ears normal Nose: external nose normal, nasal mucous membranes and turbinates normal, nares normal, septum normal, no nasal discharge Face and Sinus: face symmetric Mouth: oral mucosae normal, tongue normal, oropharynx normal and moist mucous membranes Teeth and gingiva: dentition normal Throat: posterior oropharynx normal, tonsils normal and uvula midline Eyes General: appearance normal, both eyes and all related structures Eyelids: eyelids normal Conjunctivae: conjunctivae normal Pupils: PERRL, normal by confrontation and accommodation normal EOM: EOM intact bilaterally Neck Neck: normal visual inspection, trachea midline and no JVD JVD: +5 Carotids: normal carotid upstroke and bounding pulses Chest Chest inspection: normal inspection of the chest, symmetric chest movement and normal respiratory effort Auscultation: Bilateral: Clear to Auscultation Cardio Palpation: normal PMI Rhythm: regular rhythm and ectopic beats Heart sounds: S1 normal and S2 normal GI GI: normal to inspection, soft, no hepatosplenomegaly and bowel sounds present Neuro General: alert, awake, oriented x3, no focal sensory deficit, gait normal and moves all extremities Skin Skin: no rashes or lesions noted Extremities Pulses: Normal: Right Femoral Pulse, Left Femoral Pulse, Right Dorsalis Pedis Pulse, Left Dorsalis Pedis Pulse, Right Posterior Tibial Pulse, Left Posterior Tibial Pulse, Right Radial Pulse, Left Radial Pulse Lower Extremity Edema: None: Bilateral Musculoskel Musculoskeletal: No joint tenderness Psych Psychological: normal affect Assessment AND Plan 1. Essential (primary) hypertension I10 Plan She has been keeping meticulous records of her blood pressures at home and they have been in the normotensive range. She will continue on her current medications with a close the Toprol and the Cardizem. No changes will be made. 2. Paroxysmal atrial fibrillation I48.0 Plan She does have paroxysmal atrial fibrillation. I am recommending that we obtain an EKG today and depending on the findings further recommendations will be made. Her electric cardiogram today demonstrated atrial fibrillation with a rate of 95 bpm. I would recommend that we place her on Eliquis 5 mg twice a day, obtain an echocardiogram to assess her left ventricular function, and increase her Toprol to 50 mg once a day. Her aspirin should be discontinued. She would also continue her diltiazem. Orders Orders: Plan Detail Other Orders Orders: Other Medications New: Discontinued: Follow Up 6 Weeks (mmm) Coding Level of Care Code Off vis,est,level 4 Diagnoses Essential (primary) hypertension I10 Paroxysmal atrial fibrillation I48.0 Atrial fibrillation type: paroxysmal Coding Level of Care Code Off vis,est,level 4 Diagnoses Essential (primary) hypertension I10 Paroxysmal atrial fibrillation I48.0 Atrial fibrillation type: paroxysmal 02/06/18 0944 <Electronically signed by Jeremy Mchugh MD> Date Jeremy Mchugh MD Cosigner Signature: Date (if applicable) CC: Ibrahima Diaz MD 12 LEAD EKG PERFORMED Observed: 02/06/2018 Status: F [place] [facility] 9:33 AM [facility] REPOSITORY [facility] [address] [place] [address] 12 Lead EKG performed by [facility] 02/06/18 0932 MR#: [id number] Acct: [id number] Name: TRICIA GRANADOS Rep #: [id number] : 1940 77 From: Jeremy Mcuhgh MD Attending Dr: eJremy Mchugh MD Status: DEP AMB Ordering Dr: Jeremy Mchugh MD Date: 02/06/18 Location: [facility] Sex: F C Admitted: [facility]12 Lead EKG performed by [facility] Atrial fibrillation Diffuse low voltage. -Intraventricular conduction defect nd left axis -possible anterior fascicular block consider ventricular ypertrophy. -Old anterior infarct. -Nonspecific ST depression + onspecific T-abnormality -Seen with left ventricular hypertrophy strain) or digitalis effect. ABNORMAL 02/07/18 0659 <Electronically signed by Jeremy Mchugh MD> Date Jeremy Mchugh MD CC: Ibrahima Diaz MD Date Dictated: 02/06/18931 Date Transcribed: 02/06/18931 Commercial Mortgage Broker: [place] Signed CHEST PA AND LATERAL Observed: 12/17/2017 Status: F Source: [facility] 9:01 AM [facility] REPOSITORY [facility] Imaging Services [address] [place] [address] Chest PA and Lateral MR#: [id number] Acct: [id number] Name: TRICIA GRANADOS Rep #: [id number] : 1940 F 77 From: Loi Nair MD PCP: Ibrahima Diaz MD Status: REG CLI Study: Chest PA and Lateral Date of Exam: 12/17/17 Exam# [id number] Ordering Dr: Ibrahima Diaz MD STUDY: X-RAY CHEST REASON FOR EXAM: Female, 77 years old. History of prior left lower lobe pneumonia. TECHNIQUE: PA and lateral views of the chest. COMPARISON: Comparison is made with prior study dated November 06, 2017. FINDINGS: Since prior study, there has been improvement of the interstitial markings at the lung bases. Minimal residual changes persist at the left lung base suggestive of scarring. No infiltrate is seen at this time. There is no demonstrated pleural abnormality. Normal size heart. Normal mediastinum and elno. Normal visualized pulmonary arteries. There is atherosclerotic tortuosity of the aortic arch and descending thoracic aorta. There are diffuse degenerative changes of the visualized thoracic spine. Normal visualized ribs, clavicles, and shoulders. Pectus excavatum deformity. There is no demonstrated abnormality of the visualized soft tissue structures of the upper abdomen. RAD/Chest PA and Lateral IMPRESSION: Mild residual increased linear markings at the lung bases slightly more prominent on the left side suggestive of scarring. No focal infiltrate is seen. Electronically Signed: Loi Nair MD at 13:18 EDT Tel [phone], Service support , CC: Ibrahima Diaz MD Commercial Mortgage Broker: Signed MA MAMM SCREEN W/CAD Observed: 12/09/2017 Status: F Source: [facility] IF PERFORMED BILAT 9:23 AM [facility] REPOSITORY Exam Date/Time: 12/09/2017 09:42 EDT Reason for Exam: SCREENING;Screening Report STUDY: Digital mammography screening; 12/09/2017 9:42 am ACCESSION NUMBER(S): [id number] ORDERING CLINICIAN: Ibrahima Diaz INDICATION: Screening. COMPARISON: Comparison is made to prior digital mammograms dated 12/06/2016 and 11/17/2015 FINDINGS: CC and MLO 2D digital mammographic images of the bilateral breasts were obtained. The breast tissue is almost entirely fatty. Scattered dystrophic calcifications are seen in the breasts bilaterally, unchanged from prior studies. Small rounded masses are seen in the central aspects of the breasts bilaterally, similar to prior studies.No new or enlarging mass or focal asymmetry is identified. No suspicious microcalcifications or foci of architectural distortion are seen. There has been no significant change. This study was interpreted with CAD. IMPRESSION: No mammographic evidence of malignancy. BI-RADS CATEGORY: Category: 2 - Benign Finding. Recommendation: Normal Interval Follow-up, Over Age 40. Recall Interval: 12 Months. Breast Density: Fatty. FINAL REPORT Dictated: 12/09/2017 9:57 am Yossi Ledezma MD Signed (Electronic Signature): 12/09/2017 9:57 am Signed by: Yossi Ledezma MD Technologist: MGW Assessment: BI-RADS Category 2-Benign finding Recommendation: Normal interval follow-up EMERGENCY DEPARTMENT Observed: 11/07/2017 Status: F Source: [facility] SUMMARY 10:39 AM [facility] REPOSITORY [facility] Medical Records Department [address] [place] [address] Emergency Department Summary 11/06/172116 MR#: [id number] Acct: [id number] Name: TRICIA GRANADOS Rep #: [id number] : 1940 77 From: Bhavya Copeland MD PCP: Ibrahima Diaz MD Status: DEP ER - ER Visit Summary Date of Service: 11/06/17 Chief Complaint: Cough, URI symptoms History of Present Illness: The patient is a 77 F whose had cough and head congestion for the past 3 days. She has had multiple ill contacts at [facility]. Today she had sinus pressure and she initially reported dizziness, although she describes it more as a semi-sensation because her sinuses are full. She did note her blood pressure to be elevated today. She has been taking some jgxt-wcf-yrekybx cold medicine and cough drops which may be contributing to this. Physical Examination: Vital signs include a blood pressure of 200/88, temperature 97.5, heart rate 82, respiratory rate 18, pulse ox 97% on room air. Patient is sitting upright in bed. She is alert and talkative. Head neck examination reveals TMs to be clear bilaterally. She has mild posterior pharyngeal drainage. She has bilateral anterior cervical lymphadenopathy. There is no meningismus. Heart is regular rate and rhythm. Lung sounds are clear. Abdomen is soft nontender. Neuro exam is normal. Test Results: Two-view chest x-ray shows peribronchial cuffing. Left lower lobe early airspace disease cannot be excluded. CT the head shows senescent changes without bleed. Normal sinuses are noted. Emergency Department Course and Treatment: Repeat vital signs include blood pressures in the 180s systolic. Patient will avoid using the poeo-djm-omcqgzc cold medicine. She will be treated with a course of Levaquin. Treatment Plan: [] Disposition: Discharge Impression: Early left lower lobe pneumonia This note was generated with [employer] dictation software. It may contain incorrect words, spelling, and punctuation that were not noted in review of the chart prior to signing ED Disposition - Plan for ED Patient: Disposition: Home or Assisted Living Chief Complaint: Dizziness Instructions: ED Pneumonia Adult Prescriptions: Levofloxacin [Levaquin] 750 mg PO DAILY #4 tablet Referrals: Ibrahima Diaz MD [Primary Care Provider] - 1 Week What to do if you have Problems For any increased pain, shortness of breath, bleeding, nausea or vomiting, chest pain, or any unexpected problems, contact your Primary Care Provider. Call [facility] ([phone]) or report to the closest Emergency Room. Call 911 if necessary. 11/07/17 103 <Electronically signed by Bhavya Copeland MD> Date Bhavya Copeland MD Cosigner Signature (If Indicated): Date CC: Ibrahima Diaz MD DISCHARGE INSTRUCTION Observed: 11/06/2017 Status: F Source: [facility] 9:18 PM [facility] Medical Records Department [address] [facility] [place] [address] Discharge Instruction 11/06/172116 MR#: [id number] Acct: [id number] Name: TRICIA GRANADOS Rep #: [id number] : 1940 77 From: Bhavya Copeland MD PCP: Ibrahima Diaz MD Status: REG ER ED Disposition - Plan for ED Patient: Disposition: Home or Assisted Living Chief Complaint: Dizziness Instructions: ED Pneumonia Adult Prescriptions: Levofloxacin [Levaquin] 750 mg PO DAILY #4 tablet Referrals: Ibrahima Diaz MD [Primary Care Provider] - 1 Week What to do if you have Problems For any increased pain, shortness of breath, bleeding, nausea or vomiting, chest pain, or any unexpected problems, contact your Primary Care Provider. Call [facility] ([phone]) or report to the closest Emergency Room. Call 911 if necessary. 11/06/172117 <Electronically signed by Bhavya Copeland MD> Date Bhavya Copeland MD Cosigner Signature (If Indicated): Date CC: Ibrahima Diaz MD BRAIN/HEAD WITHOUT Observed: 11/06/2017 Status: F Source: [facility] CONTRAST 7:58 PM [facility] Imaging Services [address] [place] [address] Brain/Head without Contrast MR#: [id number] Acct: [id number] Name: TRICIA GRANADOS Rep #: [id number] : 1940 F 77 From: Walter Landa DO PCP: Ibrahima Diaz MD Status: PRE ER Study: Brain/Head without Contrast Date of Exam: 11/06/17 Exam# [id number] Ordering Dr: Bhavya Copeland MD STUDY: CT BRAIN WITHOUT CONTRAST REASON FOR EXAM: Female, 77 years old. Dizziness. RADIATION DOSAGE (If Supplied By Facility): CTDIvol = ( 60.81 ) mGy, DLP = ( 1044.28 ) mGycm TECHNIQUE: Transaxial CT imaging of the brain was performed without administration of intravenous contrast material. Individualized dose optimization techniques were used for this CT. COMPARISON: None. FINDINGS: Normal soft tissue structures. Normal calvarium. There is moderate cerebral atrophy with widening of the extra- axial spaces and ventricular dilatation. There are areas of decreased attenuation within the white matter tracts of the supratentorial brain, consistent with microvascular disease changes. Normal basal ganglia and thalami. Normal brainstem. Normal cerebellum. There is no intracranial hemorrhage. There are no findings of an acute ischemic infarction. Normal visualized paranasal sinuses. CT/Brain/Head without Contrast IMPRESSION: Senescent changes with no evidence of acute intracranial bleed, mass or ischemia. Electronically Signed: Walter Landa DO at 20:37 EDT , Service support , CC: Bhavya Copeland MD; Ibrahima Diaz MD Commercial Mortgage Broker: Signed CHEST PA AND LATERAL Observed: 11/06/2017 Status: F Source: [facility] 7:58 PM [facility] REPOSITORY [facility] Imaging Services [address] [place] [address] Chest PA and Lateral MR#: [id number] Acct: [id number] Name: TRICIA GRANADOS Rep #: [id number] : 1940 F 77 From: Walter Landa DO PCP: Ibrahima Diaz MD Status: PRE ER Study: Chest PA and Lateral Date of Exam: 11/06/17 Exam# [id number] Ordering Dr: Bhavya Copeland MD STUDY: X-RAY CHEST REASON FOR EXAM: Female, 77 years old. Cough with dizziness. TECHNIQUE: PA and lateral views of the chest. COMPARISON: None. FINDINGS: Prominent interstitial markings are present extending from the hilar region to the lung base bilaterally. Peribronchial cuffing and inflammation is noted. Left lower lobe early airspace disease is not excluded. There is no demonstrated pleural abnormality. Normal size heart. Normal mediastinum and leno. Normal visualized pulmonary arteries. There is atherosclerotic calcification of the aortic arch with tortuosity. Normal visualized thoracic spine. Normal visualized ribs, clavicles, and shoulders. There is no demonstrated abnormality of the visualized soft tissue structures of the upper abdomen. RAD/Chest PA and Lateral IMPRESSION: Findings consistent with peribronchial and termination and interstitial edema with left lower lobe early airspace disease not excluded. Recommend follow-up imaging to document resolution after appropriate treatment. Electronically Signed: Walter Landa DO at 20:38 EDT , Service support , CC: Bhavya Copeland MD; Ibrahima Diaz MD Commercial Mortgage Broker: Signed CBC W/ AUTO DIFF Collected: 05/30/2017 Status: F Source: [facility] 7:48 AM [facility] REPOSITORY TYPE CODE TESTS RESULT OUT OF RANGE REFERENCE UNITS LAB 41671537(L 3.6-11.0 E3/mcL OINC) Normal WBC 8.7 LAB 71285722(L 3.90-5.40 E6/mcL OINC) Normal RBC 4.51 LAB 78624502(L 12.0-16.0 G/DL OINC) Normal Hgb 13.9 LAB 74557289(L 36.0-48.0 % OINC) Normal Hct 42.0 LAB 07249704(L 11.5-14.5 % OINC) Normal RDW 12.9 LAB 78650241(L 27.0-31.0 pg OINC) Normal MCH 30.9 LAB 94773841(L 33.0-37.0 G/DL OINC) Normal MCHC 33.1 LAB 83839873(L 78.0-100.0 fL OINC) Normal MCV 93.2 LAB 63981194(L 7.4-11.0 fL OINC) Normal MPV 9.7 LAB 82989194(L 130-400 E3/mcL OINC) Normal Platelet 255 Performed By: #### [id number] #### KATIE Rem[employer] [address] [place] [address] AUTO DIFF Collected: 05/30/2017 Status: F Source: [facility] 7:48 AM [facility] REPOSITORY Order Comment: Order Added by Discern Expert. TYPE CODE TESTS RESULT OUT OF RANGE REFERENCE UNITS LAB 21618891(L 37.0-75.0 % OINC) Normal Neutro Auto 62.6 LAB 51340158(L 20.0-55.0 % OINC) Normal Lymph Auto 24.4 LAB 10928265(L 0.0-10.0 % OINC) Normal Faulk Auto 8.7 LAB 64398435(L 0.0-11.0 % OINC) Normal Eos Auto 3.5 LAB 19307823(L 0.0-2.0 % OINC) Normal Basophil Auto 0.8 LAB 60456250(L 1.4-6.5 E3/mcL OINC) Normal Neutro 5.4 Absolute LAB 86749292(L 1.2-3.4 E3/mcL OINC) Normal Lymph Absolute 2.1 LAB 06765406(L 0.0-0.7 E3/mcL OINC) High Faulk Absolute 0.8 LAB 67537060(L 0.0-0.7 E3/mcL OINC) Normal Eos Absolute 0.3 LAB 16818992(L 0.0-0.2 E3/mcL OINC) Normal Basophil 0.1 Absolute Performed By: #### [id number] #### KATIE RemH[employer] [address] [place] [address] CMP Collected: 05/30/2017 Status: F Source: [facility] 7:48 AM [facility] REPOSITORY TYPE CODE TESTS RESULT OUT OF RANGE REFERENCE UNITS LAB 99660463(L 70-99 mg/dL OINC) High Glucose Lvl 104 LAB 86879526(L 8.4-10.2 mg/dL OINC) Calcium Normal Lvl 9.6 LAB 16284795(L 136-145 mEq/L OINC) Sodium Normal Lvl 138 LAB 80891369(L 3.5-5.1 mEq/L OINC) Normal Potassium Lvl 4.3 LAB 42829279(L 98-107 mEq/L OINC) Chloride Normal 106 LAB 54479673(L 24.0-30.0 mEq/L OINC) CO2 Normal 25.4 LAB 61994151(L 7-18 mg/dL OINC) BUN Normal 17 LAB 1609320(LO 0.6-1.3 mg/dL INC) Normal Creatinine 0.9 LAB 36216361(L 42-121 Int._Unit/ OINC) L Alk Phos Normal 88 LAB 25442027(L 0.2-1.0 mg/dL OINC) Bili Normal Total 1.0 LAB 72895218(L 3.2-5.0 G/DL OINC) Albumin Normal Lvl 4.1 LAB 65295549(L 6.4-8.3 G/DL OINC) Total Normal Protein 7.2 LAB 08652302(L 10-40 Int._Unit/ OINC) L ALT Normal 18 LAB 27051669(L 10-42 Int._Unit/ OINC) L AST Normal 20 LAB 02540920(L 5.4-30.0 ratio OINC) Normal BUN/Creat Ratio 18.9 LAB 36548991(L 2.0-4.0 G/DL OINC) Globulin Normal 3.1 LAB 11925394(L 1.1-1.9 ratio OINC) A/G Normal Ratio 1.3 Performed By: #### [id number] #### KATIE [employer] [address] [place] [address] EGFR Collected: 05/30/2017 Status: F Source: [facility] 7:48 AM [facility] REPOSITORY Order Comment: Order added by Discern Expert. TYPE CODE TESTS RESULT OUT OF RANGE REFERENCE UNITS LAB 80046641(LO mL/min/1.73 INC) m2 Normal eGFR >60 LAB 05550583(LO mL/min/1.73 INC) m2 Normal eGFR AA >60 Performed By: #### [id number] #### KATIE [facility] [place] [address] ALLERGIES ALLERGIES DATE TYPE / NAME / CODE REACTION SEVERITY SOURCE CODE Drug caffeine/[id number](RXNO Other Unknown [place] 8 Allergy/4 RM) [facility] 62680358( Hospital SNOMED Repository CT) DRUG CAFFEINE INTOLERANCE [place] 4 INGREDI/4 [facility] 04965357( [place] SNOMED Repository CT) Drug/4195 hydrochlorothiazide 74985055 [facility] [address]([facility]) [facility] System Repository Drug/4195 lisinopril 837401755 [facility] [address]([facility]) Health System Repository Drug/4195 Caffeine 115355511 [facility] 31967([facility]) Health System Repository ENCOUNTERS ENCOUNTERS ADMIT/DISCHARGE ACCOUNT NUMBER ADMITTING ENCOUNTER LOCATION SOURCE CLASS 03/20/2018 [id number] [facility] ing:POLAB3 Repository 03/20/2018/03/20/20 [id number] Ambulatory BMSBuilding:B [place] 18 MS.[facility] Repository 03/17/2018/03/18/[id number] Repository 03/03/2018/03/04/[id number] Repository 02/24/2018 [id number] Ambulatory BMSBuilding:B [place] MS.CF.[facility] Repository 02/24/2018 [id number] [facility] ing:[facility] Repository 02/20/2018/02/21/20 [id number] Ambulatory [address] Repository 02/15/2018/02/18/[id number] Repository 02/06/2018 [id number] [facility] ing:LAB Repository 02/06/2018/02/07/20 [id number] Ambulatory BMSBuilding:B [address] Repository 12/24/2017 [id number] [facility] ing:[facility] [place] Repository 12/24/2017 [id number] [facility] 12/24/2017/12/25/19 [id number] Ambulatory Medical [address] Repository Med [facility]oc 12/17/2017 [id number] Ambulatory [facility] ing:RAD Repository 12/09/2017/12/10/19 [id number] [place], Ambulatory [address] ing:[facility] Repository 12/09/[id number] Repository 12/04/2017/12/05/19 [id number] Ambulatory Medical [facility] [address] [place] [address] [place]ository [facility] 11/12/2017/11/13/19 [id number] Ambulatory Medical [facility] [address] [place], [place] [address]Building: Repository Med AssocRoom: Room 3 11/06/2017/11/07/19 [id number] Emergency [address] ing:ED Repository 06/06/2017/06/06/19 [id number] [place], Ambulatory Medical [address] Repository Med AssocRoom: Room 2 05/30/2017/05/30/19 [id number] [place], Ambulatory [address] ing:[facility] [place] Repository PAYERS PAYERS ENCOUNTER GUARANTOR PAYER SUBSCRIBER SOURCE 03/20/2018 TRICIA Paz Primary TRICIA [id number] [facility] PART A BPolicy Number: [id number] [address] [id number] Repository , [place] [address]Rxb: Date:2018-03-20 () 03/20/2018 Secondary TRICIA L [place] Insurance:[facility] DARWINB: Community Number: [id number] Hospital [id number] Repository Date:5794-29-14XP [address]AMGJCQZ, [place] [address]OU: 03/20/2018 Tertiary NOT GIVENUNK [place] Insurance:SELF PAY [facility] Number: Effective Repository Date:2018-03-20 03/20/2018 TRICIA L Primary TRICIA L [place] [id number] Insurance:[facility]ICARE [facility]: [facility] PART A BPolicy Number: [id number] [id number] Repository , [place] [address]Kyi: Date:2018-02-06 () 03/20/2018 Secondary TRICIA L [place] Insurance:[facility] DARWINB: Community Number: [id number] Hospital [id number] Repository Date:[id number] [address]QWXILEG, [place] [address]UX: 03/20/2018 Tertiary NOT GIVENUNK [place] Insurance:SELF PAY [facility] Number: Effective Repository Date:2018-03-20 02/24/2018 TRICIA L Primary TRICIA L She[place] [id number] CR Insurance:[facility]ICARE [facility]: [address] PART A BPolicy Number: [id number], [place] [address]Fvn: [id number] Repository Date:2018-02-06 () 02/24/2018 Secondary TRICIA L [place] Insurance:[facility] DARWINST. [facility]: Community Number: [id number] Hospital [id number] Repository Date:3939-56-68LM [facility] 788688LMZEMPA, [place] [address]EO: 02/24/2018 Tertiary NOT GIVENUNK [place] Insurance:SELF PAY [facility] Number: Effective Repository Date:2018-02-24 02/24/2018 TRICIA L Primary TRICIA L [place] [id number] CR Insurance:MEDICARE ROBERTSDOB: Community [address] PART A BPolicy Number: [id number], [place] [address]Pfc: [id number] Repository Date:2018-02-06 () 02/24/2018 Secondary TRICIA L [place] Insurance:AARPPolicy ROBERTSDOB: Community Number: [id number] Hospital [id number] Repository Date:5844-54-61SR [facility] 493781PZLTESA, [place] [address]NH: 02/24/2018 Tertiary NOT GIVENUNK [place] Insurance:SELF PAY [facility] Number: Effective Repository Date:2018-02-06 02/06/2018 TRICIA L Primary TRICIA L [place] [id number] CR Insurance:MEDICARE ROBERTSDOB: Community [address] PART A BPolicy Number: [id number], [place] [address]Ekn: [id number] Repository Date:2018-02-06 () 02/06/2018 Secondary TRICIA L [place] Insurance:AARPPolicy DARWINDOB: Community Number: [id number] Hospital [id number] Repository Date:7467-13-26DK [facility] 859867BYBWIBH, [place] [address]VE: 02/06/2018 Tertiary NOT GIVENUNK [place] Insurance:SELF PAY [facility] Number: Effective Repository Date:2018-02-06 02/06/2018 TRICIA L Primary TRICIA L [place] [id number] [address] Insurance:MEDICARE ROBERTSDOB: Community [address] PART A BPolicy Number: [id number], [place] [address]Rwo: [id number] Repository Date:2017-04-02 () 02/06/2018 Secondary TRICIA L [place] Insurance:AARPPolicy DARWINDOB: Community Number: [id number] Hospital [id number] Repository Date:7623-13-12MN [address]ISBFGYG, [place] [address]EI: 02/06/2018 Tertiary NOT GIVENUNK [place] Insurance:SELF PAY [facility] Number: Effective Repository Date:2018-02-04 12/24/2017 TRICIA L Primary Insurance:1500 TRICIA GRANADOSDOB: MEDICARE PRIMARYPolicy ROBERTSDOB: [facility] Number: Effective [id number] Date:2017-12-24 - [facility] Repository [address] [place] [address] [id number] [address] [place] [address] [place] Name:CD:[id number] [place] [address]Gla: [address] [address]HADFPMHRN, [place] [address]Eib: [phone]: [phone]) (HP) [phone] (HP) (WP) 12/24/2017 Secondary TRICIASHAWN Gomez Insurance:1500 ROBERTSB: [facility] AAR/[facility] Number: [id number] Repository Date:2017-12-24 [facility] [id number] [place] Name:CD:[id number] O [address]Vky: [address]NWQMJIE, [place] [address]ES: [phone]) (HP) [phone] (WP) 12/24/2017 TRICIA L Primary Insurance:1500 TRICIA GRANADOSDOB: MEDICARE PRIMARYPolicy [facility]: [facility] Number: Effective [id number] Date:2017-12-24 - [facility] Repository [address] [place] [address] [id number] [address] [place] [address] Name:CD:[id number] [place] [address]Wcg: [address] [address]CKSWLZXNH, [place] [address]Hab: [phone]: [phone]) (HP) [phone] (HP) (WP) 12/24/2017 Secondary TRICIA L [place] Insurance:1500 ROBERTSDOB: [facility]ol[facility] Number: [id number] System Effective [facility] Repository Date:2017-12-24 [facility] [id number] [place] Name:CD:[id number] O [address]Plj: [address]TLYOTIJ, [place] [address]WP: [phone]) (HP) [phone] (WP) 12/24/2017 TRICIA L Primary Insurance:1500 TRICIA L [place] [place] ROBERTSB: MEDICARE PRIMARYPolicy [facility] Number: Effective [id number] Date:2017-11-12 - [address] Repository [address] [id number] [address] [place] [address] [place] Name:CD:[id number] [place] [address]Nta: [address]RPGCLJWGL, [place] [address]Srm: [phone]: [phone]) (HP) [phone] (HP) (WP) 12/24/2017 Secondary TRICIA L [place] Insurance:1500 ROBERTSB: [facility] Number: [id number] System Effective [facility] Repository Date:2017-11-12 - [facility] 7736-48-47Tdln [place] Name:CD:[id number] O [address]Qdd: [address]TTBUTCG, [place] [address]WP: [phone]) (HP) [phone] (WP) 12/17/2017 Tricia L Primary Tricia L [place] [id number] Cr Insurance:MEDICARE [facility]: [address] PART A BPolicy Number: [id number], [place] [address]Dyu: [id number] Repository Date:2017-12-17 (HP) 12/17/2017 Secondary Tricia L She[place] Insurance:AARPPolicy DarwinDOB: [facility] Number: [id number] Hospital [id number] Repository Date:3598-73-01MT [address]YUMSVMO, [place] [address]BI: 12/17/2017 Tertiary NOT GIVENUNK [place] Insurance:SELF PAY [facility]: Effective Repository Date:2017-12-17 12/09/2017 TRICIA L Primary TRICIA L [place] [place] ROBERTSDOB: Insurance:MedicarePoli ROBERTSDOB: [facility] cy Number: Effective [id number] System [facility] Date:2017-06-11 - [facility] Repository [address] [place] [address] [id number] Name:CD:[id number] [address]Tel: 705397DHRCWFMTMZ, [place] [address]Nmv: [phone]: [phone]) (HP) [phone] (HP) (WP) 12/09/2017 Secondary TRICIA L [place] Insurance:AARPPbe MEADB: [facility] Number: Effective [id number] System Date:2017-06-11 - [facility] Repository [id number] [place] [address], Name:CD:[id number] [facility] 985066ZCMYFSO, [place] [address]Dzk: [address]UD: [phone] (HP) (WP) 12/09/2017 TRICIA Primary TRICIA [employer] ROBERTSDOB: Insurance:MedicarePoli ROBERTSDOB: [facility] cy Number: [id number] [place] [address] Date:Plan Name:Melva Marcus [address] [place] [address] [id number]: [id number]: (HP) (HP) 12/09/2017 Secondary TRICIA University Insurance:MedicarePoli ROBERTSDOB: Hospitals cy Number: [id number] Repository [id number] [facility] Date:Plan Name:[address] [id number]: (HP) 12/09/2017 Tertiary TRICIA University Insurance:AARP ROBERTSDOB: Hospitals SupplementPolicy [id number] Repository Number: [facility] [id number] [address] [place] [address], Date:Plan Name:Health [place] [phone]: (HP) 12/04/2017 TRICIA L Primary Insurance:1500 TRICIA L [place] [place] ROBERTSDOB: MEDICARE [facility]Le[facility]y ROBERTSB: [facility] Number: Effective [id number] System [facility] Date:2017-06-06 - [facility] Repository [address] [place] [address] [id number] [address] [place] [address] Name:CD:[id number] [place] [address]Ses: [address] [address]RCESIOXBU, [place] [address]Rdq: [phone]: ([phone]) (HP) [phone] (HP) (WP) 12/04/2017 Secondary TRICIA L [place] Insurance:1500 ROBERTSDOB: [facility] AARP/[facility] Number: [id number] System Effective [facility] Repository Date:2017-06-06 - [address] [place] [address] [id number] [place] Name:CD:[id number] O [address]Dxy: [address]DDRLZVY, [place] [address]DJ: [phone]) (HP) [phone] (WP) 11/12/2017 TRICIA L Primary Insurance:1500 TRICIA L Latter Day ROBERTSDOB: MEDICARE PRIMARYPolicy ROBERTSDOB: [facility] Number: Effective [id number] System [facility] Date:2017-11-12 - [address] Repository [address] [place] [address] [id number] [address] [place] [address] Name:CD:[id number] [address]Atf: [address] [place], [place] [address]Tel: [phone]: [phone] ([phone] (HP) (WP) 11/12/2017 Secondary TRICIA L Latter Day Insurance:1500 ROBERTSDOB: [facility] AARP/CPolicy Number: [id number] System Effective [facility] Repository Date:2017-11-12 - [address] [place] [address] [id number] [place] Name:CD:[id number] O [address]Bjn: [address], [place] [address]WP: [phone] ([phone] (WP) 11/06/2017 Tricia L Primary Tricia L Shelli [id number] Cr Insurance:MEDICARE DarwinB: [address] PART A BPolicy Number: [id number], [place] [address]Rol: [id number] Repository Date:2017-11-06 (HP) 11/06/2017 Secondary Tricia L [place] Insurance:AARPPolicy RobertsDOB: Community Number: [id number] Hospital [id number] Repository Date:[id number] [address]GF: 11/06/2017 Tertiary NOT GIVENUNK [place] Insurance:SELF PAY [facility]: Effective Repository Date:2017-11-06 06/06/2017 TRICIA L Primary Insurance:1500 TRICIA L Latter Day ROBERTSDOB: MEDICARE PRIMARYPolicy ROBERTSDOB: [facility] Number: Effective [id number] System [facility] Date:2016-12-04 - [facility] Repository [address] [place] [address] [id number] [address] [place] [address] Name:CD:[id number] [place] [address]Iqn: [address] [address] [address]Bhu: [id number]: [phone] ([phone] (HP) (WP) 06/06/2017 Secondary TRICIA L Latter Day Insurance:1500 DARWINB: [facility] A[facility] Number: [id number] System Effective [facility] Repository Date:2016-12-04 [facility] [id number] Name:CD:[id number] O [id number]: [address], [place] [address]NL: [phone] (HP) [phone] (WP) 05/30/2017 TRICIA L Primary TRICIA L Latter Day DARWINB: Insurance:MedicarePoli DARWINB: [facility] cy Number: Effective [id number] [address] Date:2017-05-29 - [facility] Repository [address] [place] [address] [id number] [address] [place] [address] Name:CD:[id number] BOX [facility]Fzx: [id number] [id number]: [id number]: [phone] ([phone] (HP) (WP) 05/30/2017 Secondary TRICIA L Latter Day Insurance:AARPPolicy [facility]: [facility] Number: Effective [id number] System Date:2017-05-29 - [facility] Repository [id number] [address] [place] [address], Name:CD:[id number] [facility] [id number], [place] [address]Eza: [id number]: [phone] () (WP)
== END ==
PROVIDERS: Family Provider Family Medicine; PCP Family Medicine; Visit Provider Physician Assistant Medical
DX: I48.91 Unspecified atrial fibrillation (principal)
CPT/HCPCS: 36415; 80048; 83735

== ENCOUNTER 2023-12-20 08:56 | Emergency (ER) | payer MEDICARE, OTHER, SELFPAY ==
[2023-12-20 08:57] VITALS: BP 140/121; PULSE 74; RESP 16; TEMP 37.1; O2SAT 97; BMI 33.5
--- NOTE | 2023-12-20 10:09 | EDS_ITS ---
HPI History of Present Illness Chief Complaint: Nosebleed Detail of Chief Complaint: Nosebleed Informant: patient Narrative Narrative: Patient presents to the emergency department complaint of a nosebleed that started this morning around 8 AM. Patient states that she bent over to sweep the floor when she started having bleeding and she thought it was coming from both sides of her nose. Patient states that she has had some nasal drainage. She is on Eliquis for history of A-fib. On arrival to the emergency department she states that her nose stopped bleeding. Years ago she had to have her left nasal vault cauterized. [facility] Medical History (Updated 12/20/23 @ 10:[address] Ernesto Corona, DO) Longstanding persistent atrial fibrillation Left bundle branch block (LBBB) Obesity Paroxysmal atrial fibrillation Essential (primary) hypertension Transient global amnesia Anxiety disorder Home Medications ?Medication ?Instructions ?Recorded ?Last Taken ?Type alprazolam 0.5 mg tablet (Xanax) 0.5 mg PO QHS PRN 03/12/23 Unknown History Eliquis 5 mg tablet (apixaban) 5 mg PO BID #60 tabs 08/06/23 Unknown Rx diltiazem HCl 180 mg 180 mg PO DAILY #90 caps 08/06/23 Unknown Rx capsule,extended release 24 hr (Cartia XT) metoprolol succinate 50 mg See Rx Instructions .Route 08/06/23 Unknown Rx tablet,extended release 24 hr .COMPLEX #90 tabs losartan 100 mg tablet See Rx Instructions .Route 12/06/23 Unknown Rx .COMPLEX #90 tabs Allergy/AdvReac Type Severity Reaction Status Date / Time caffeine AdvReac Other Verified 03/12/23 14:54 Family History Father CVA (cerebral vascular accident) Mother Hypertension Heart disease CHF (congestive heart failure) Surgical History Hx of appendectomy H/O oophorectomy History of cholecystectomy H/O: hysterectomy Social History Smoking Status: Former smoker how long ago did patient quit smokin years age alcohol intake: never caffeine: No ROS ROS ED Review of Systems ROS Unobtainable: other Constitutional Constitutional ED: Reports lethargy; Denies chills, fever(s), sweats or weight loss Eyes Eyes: Denies blurry vision, change in vision or diplopia ENT ENT ED: Reports other Details: Nosebleed ; Denies rhinorrhea or sore throat Cardiovascular Cardiovascular: Denies chest pain, orthopnea or racing heartbeat Respiratory/Chest Respiratory/Chest: Denies cough, dyspnea, dyspnea on exertion, orthopnea or sputum Gastrointestinal Gastrointestinal: Denies abdominal pain, diarrhea, nausea or vomiting Genitourinary Genitourinary ED: Denies dysuria, hematuria or urinary frequency Musculoskeletal Musculoskeletal: Denies arthralgias, back pain, myalgias or neck pain Integumentary Denies abscess, Abrasions or rash Neurologic Neurologic: Denies headache(s) or weakness Psychiatric Psychiatric: Denies anxiety, depression or suicidal thoughts Endocrine Endocrinology: Denies polydipsia, polyphagia or polyuria Hematologic/Lymphatic Hematologic/Lymphatic: Denies easy bleeding, easy bruising or lymphadenopathy Allergic/Immunologic Allergic/Immunologic ED: Denies mouth swelling, tongue swelling or urticaria EXAM Physical Exam Const Vital Signs: 12/20/23 08:57 Temperature 98.7 F Temperature Source Temporal Pulse Rate 74 Respiratory Rate 16 Blood Pressure 140/121 H Blood Pressure Mean 127 Pulse Ox 97 Oxygen Delivery Method Room Air Positive well nourished and well developed General Appearance ED: well developed and NAD HEENT Reports TM's clear and moist mucous membranes HEENT Narrative: Nose-evaluation of the left nasal vault does reveal a vessel that has clot on a down the anterior septum that I suspect is the source of the bleeding. There is currently no active bleeding. No evidence of bleeding from the right side of the nose. No bleeding down the oropharynx. normocephalic and atraumatic; Negative for trauma or tenderness Tympanic Membrane ED: Yes TM's clear Eyes PERRL and EOMs intact bilaterally General Eye ED: Negative for pale conjunctiva or scleral icterus Neck no lymphadenopathy, supple and no JVD General: Negative for tenderness Chest Wall inspection of chest normal and palpation of chest normal Chest: Negative for tenderness Resp normal respiratory effort and clear to auscultation bilaterally Effort and Inspection: Negative for respiratory distress or pain with movement Auscultation: Negative for rhonchi, wheezes or diminished lung sounds Cardio regular rate, regular rhythm, S1 normal heart sound, S2 normal heart sound and no murmurs Peripheral Pulses: pulses 2+ throughout GI normal to inspection, nondistended, normoactive bowel sounds, soft to palpation, non-tender, non-distended and no masses Back/Spine no CVA tenderness and no thoracic nor lumbar tenderness Extremity normal to inspection General Extremety ED: Negative for edema General Extremity: Negative for edema Neuro oriented x3, CN's II-XII intact bilaterally, no sensory deficits noted and gait normal Sensorium / Orientation: awake, alert, oriented to person, oriented to place and oriented to time Motor Exam: strength 5/5 throughout and strength abnormal Psych mental status grossly normal Skin no rashes or lesions noted and no wounds MDM MDM MDM Narrative Medical decision making narrative: Patient presents with a nosebleed that started around 8 AM. Patient has not had any nosebleed for the last hour. I discussed case with cardiology on-call Dr. Julian who agrees with discontinuing the Eliquis for 5 days and then follow-up with cardiology. Patient advised that if the bleeding should start again to hold constant pressure for 20 minutes without letting go and if it does not stop to return to the ER. She clinically looks well. Patient in agreement with plan. Discharge Plan Triage Chief Complaint: Nosebleed ED Provider: Ernesto Corona Dx/Rx/DC Orders Clinical Impression: Epistaxis Instructions: ED Epistaxis (Adult) Prescriptions: No Action alprazolam [Xanax] 0.5 mg tablet 0.5 mg PO QHS PRN diltiazem HCl [Cartia XT] 180 mg capsule,extended release 24hr 180 mg PO DAILY Qty: 90 4RF Eliquis 5 mg tablet 5 mg PO BID Qty: 60 12RF metoprolol succinate 50 mg tablet extended release 24 hr See Rx Instructions .ROUTE .COMPLEX Qty: 90 3RF Dose Instruction: TAKE 1 TABLET BY MOUTH ONCE DAILY Rx Instructions: TAKE 1 TABLET BY MOUTH ONCE DAILY losartan 100 mg tablet See Rx Instructions .ROUTE .COMPLEX Qty: 90 3RF Dose Instruction: TAKE 1 TABLET BY MOUTH EVERY DAY Rx Instructions: TAKE 1 TABLET BY MOUTH EVERY DAY Primary Care Provider: Rosalino Raza Referrals: Bryan Holcomb MD [Med Staff - Courtesy Staff] - As Needed Rosalino Raza MD [Primary Care Provider] - Activity Restrictions/Additional Instructions: Discontinue the Eliquis for 5 days. Follow-up with Dr. Diaz for your Dr. Raza to reinstate the Eliquis. Print Language: Slovenian Disposition Disposition: Home, Self Care
[2023-12-20 10:25] VITALS: BP 140/121; PULSE 74; RESP 16; TEMP 37.1; O2SAT 97
== END 2023-12-20 10:25 | disposition home or self-care (01) ==
PROVIDERS: Emergency Provider Emergency Medicine; PCP Family Medicine; Visit Provider Emergency Medicine
DX: R04.0 Epistaxis (principal); I48.11 Longstanding persistent atrial fibrillation; I48.0 Paroxysmal atrial fibrillation; I10 Essential (primary) hypertension; F41.9 Anxiety disorder, unspecified; Z79.01 Long term (current) use of anticoagulants; Z87.891 Personal history of nicotine dependence
CPT/HCPCS: 99282

== ENCOUNTER 2023-12-21 08:08 | Emergency (ER) | payer MEDICARE, OTHER, SELFPAY ==
[2023-12-21 08:08] VITALS: BP 122/97; PULSE 87; RESP 18; TEMP 36.1; O2SAT 96; BMI 32.4
--- NOTE | 2023-12-21 09:05 | EX.ED.DYSGE1 ---
HPI History of Present Illness Chief Complaint: Nosebleed Informant: patient Onset/Context/Timing Onset: Today Context: Sudden Onset Timing: Continuous Quality: Bleeding Location: Left nares Worsened by: Nothing Relieved by: Nothing Narrative Narrative: Patient presents with epistaxis that began again today. Patient states she was seen here yesterday for epistaxis. Patient states it resolved yesterday. Patient states she was told that if her bleeding would start up again that she should come back to the emergency department. The patient denies any trauma or injury. Patient does admit to a mild frontal headache. Patient also states her ears have been popping. Patient denies any fevers or chills. [facility] Medical History (Updated 12/21/23 @ 10:[address] Ge Mendiola, ) Longstanding persistent atrial fibrillation Left bundle branch block (LBBB) Obesity Paroxysmal atrial fibrillation Essential (primary) hypertension Transient global amnesia Anxiety disorder Home Medications ?Medication ?Instructions ?Recorded ?Last Taken ?Type alprazolam 0.5 mg tablet (Xanax) 0.5 mg PO QHS PRN 03/12/23 Unknown History Eliquis 5 mg tablet (apixaban) 5 mg PO BID #60 tabs 08/06/23 Unknown Rx diltiazem HCl 180 mg 180 mg PO DAILY #90 caps 08/06/23 Unknown Rx capsule,extended release 24 hr (Cartia XT) metoprolol succinate 50 mg See Rx Instructions .Route 08/06/23 Unknown Rx tablet,extended release 24 hr .COMPLEX #90 tabs losartan 100 mg tablet See Rx Instructions .Route 12/06/23 Unknown Rx .COMPLEX #90 tabs Allergy/AdvReac Type Severity Reaction Status Date / Time caffeine AdvReac Other Verified 12/21/23 08:08 Family History Father CVA (cerebral vascular accident) Mother Hypertension Heart disease CHF (congestive heart failure) Surgical History Hx of appendectomy H/O oophorectomy History of cholecystectomy H/O: hysterectomy Social History Smoking Status: Former smoker how long ago did patient quit smokin years age alcohol intake: never caffeine: No ROS ROS ED Constitutional Constitutional ED: Denies chills or fever(s) Eyes Eyes: Denies blurry vision or change in vision ENT ENT ED: Reports ear pain bilateral (Popping); Denies rhinorrhea or sore throat Cardiovascular Cardiovascular: Denies chest pain or palpitations Respiratory/Chest Respiratory/Chest: Denies cough or dyspnea Gastrointestinal Gastrointestinal: Denies nausea or vomiting Genitourinary Genitourinary ED: Denies dysuria or hematuria Musculoskeletal Musculoskeletal: Reports back pain; Denies neck pain Integumentary Denies abscess or rash Neurologic Neurologic: Reports headache(s); Denies weakness Allergic/Immunologic Allergic/Immunologic ED: Denies mouth swelling or urticaria EXAM Physical Exam Const Vital Signs: 12/21/23 08:08 12/21/23 10:08 Temperature 97 F L Temperature Source Temporal Pulse Rate 87 78 Respiratory Rate 18 16 Blood Pressure 122/97 H 128/76 H Blood Pressure Mean 105 93 Pulse Ox 96 98 Oxygen Delivery Method Room Air Room Air Positive well nourished and well developed General Appearance ED: well developed and NAD HEENT Reports moist mucous membranes HEENT Narrative: There is some dried blood noted in the left anterior nasal septum. There is no active bleeding noted. There is no bleeding from the right nares. There is no septal deviation or septal hematoma noted. Oral mucosa is pink and moist. There is some mild blood in the oropharynx noted. Neck supple and no JVD Neuro oriented x3, CN's II-XII intact bilaterally and no sensory deficits noted Sensorium / Orientation: alert Motor Exam: strength 5/5 throughout Psych mental status grossly normal MDM MDM MDM Narrative Medical decision making narrative: Patient was observed here in the emergency department. Patient had no further episodes of bleeding. Neosporin was applied to the nares bilaterally. Patient was instructed to do this twice daily. Patient was instructed to follow-up with her primary care physician in 3 to 5 days. Patient was instructed to return if worse in any way. Patient understood and was agreeable with the plan. All questions were answered. Discharge Plan Triage Chief Complaint: Nosebleed ED Provider: Ge Mendiola Dx/Rx/DC Orders Clinical Impression: Epistaxis Instructions: ED Epistaxis (Adult) Prescriptions: No Action alprazolam [Xanax] 0.5 mg tablet 0.5 mg PO QHS PRN diltiazem HCl [Cartia XT] 180 mg capsule,extended release 24hr 180 mg PO DAILY Qty: 90 4RF Eliquis 5 mg tablet 5 mg PO BID Qty: 60 12RF metoprolol succinate 50 mg tablet extended release 24 hr See Rx Instructions .ROUTE .COMPLEX Qty: 90 3RF Dose Instruction: TAKE 1 TABLET BY MOUTH ONCE DAILY Rx Instructions: TAKE 1 TABLET BY MOUTH ONCE DAILY losartan 100 mg tablet See Rx Instructions .ROUTE .COMPLEX Qty: 90 3RF Dose Instruction: TAKE 1 TABLET BY MOUTH EVERY DAY Rx Instructions: TAKE 1 TABLET BY MOUTH EVERY DAY Primary Care Provider: Rosalino Raza Referrals: Rosalino Raza MD [Primary Care Provider] - 3-5 Days Print Language: Montserratian Disposition Disposition: Home, Self Care
[2023-12-21 10:08] VITALS: BP 128/76; PULSE 78; RESP 16; O2SAT 98
== END 2023-12-21 10:37 | disposition home or self-care (01) ==
PROVIDERS: Emergency Provider Emergency Medicine; PCP Family Medicine; Visit Provider Emergency Medicine
DX: R04.0 Epistaxis (principal); I48.11 Longstanding persistent atrial fibrillation; I10 Essential (primary) hypertension; H92.03 Otalgia, bilateral; R51.9 Headache, unspecified; Z79.01 Long term (current) use of anticoagulants; Z79.899 Other long term (current) drug therapy; Z87.891 Personal history of nicotine dependence
CPT/HCPCS: 99282

== ENCOUNTER 2023-12-22 00:03 | Inpatient (IN) | payer MEDICARE, OTHER, SELFPAY ==
[2023-12-22] VITALS (10 sets, daily range): BP systolic 136–189; BP diastolic 56–119; PULSE 76–105; RESP 14–18; TEMP 36.2–37; O2SAT 96–98; BMI 33.3; BMI 33.5
--- NOTE | 2023-12-22 01:46 | EDS_ITS ---
HPI History of Present Illness Chief Complaint: Nosebleed Informant: patient and family Narrative Narrative: Recurrent left-sided nasal bleed. Was here yesterday right-sided nasal bleeding this morning for left-sided nasal bleed. She is on Eliquis for history of atrial fibrillation. Yesterday and this morning had chemical spray, her Eliquis has been held since yesterday. Denies any digital manipulation. Was bleeding heavily on the left side. She was provided nasal clips. She had blood in her throat however was leaning her head back. Prior similar symptoms: Yes PFSH PFSH Medical History (Updated 12/22/23 @ 02:[address] Bret Matt DO) Longstanding persistent atrial fibrillation Left bundle branch block (LBBB) Obesity Paroxysmal atrial fibrillation Essential (primary) hypertension Transient global amnesia Anxiety disorder Home Medications ?Medication ?Instructions ?Recorded ?Last Taken ?Type alprazolam 0.5 mg tablet (Xanax) 0.5 mg PO QHS PRN anxiety 03/12/23 Unknown History Eliquis 5 mg tablet (apixaban) 5 mg PO BID #60 tabs 08/06/23 Unknown Rx diltiazem HCl 180 mg 180 mg PO DAILY #90 caps 08/06/23 Unknown Rx capsule,extended release 24 hr (Cartia XT) metoprolol succinate 50 mg See Rx Instructions .Route 08/06/23 Unknown Rx tablet,extended release 24 hr .COMPLEX #90 tabs losartan 100 mg tablet See Rx Instructions .Route 12/06/23 Unknown Rx .COMPLEX #90 tabs Allergy/AdvReac Type Severity Reaction Status Date / Time caffeine AdvReac Other Verified 12/22/23 00:08 Family History Father CVA (cerebral vascular accident) Mother Hypertension Heart disease CHF (congestive heart failure) Surgical History Hx of appendectomy H/O oophorectomy History of cholecystectomy H/O: hysterectomy Social History Smoking Status: Former smoker how long ago did patient quit smokin years age alcohol intake: never caffeine: No ROS ROS ED Constitutional Constitutional ED: Denies chills, fever(s) or sweats ENT ENT ED: Reports other Details: Epistaxis ; Denies sore throat Cardiovascular Cardiovascular: Denies chest pain, palpitations or racing heartbeat Respiratory/Chest Respiratory/Chest: Denies cough Gastrointestinal Gastrointestinal: Denies abdominal pain, diarrhea, nausea or vomiting Genitourinary Genitourinary ED: Denies dysuria Neurologic Neurologic: Denies headache(s) EXAM Physical Exam Const Vital Signs: 12/22/23 00:04 12/22/23 02:03 12/22/23 03:12 Temperature 97.8 F 98.2 F Temperature Source Oral Pulse Rate 101 H 88 91 Respiratory Rate 18 16 18 Blood Pressure 150/119 H 189/93 H 169/101 H Blood Pressure Mean 129 125 123 Pulse Ox 96 97 97 Oxygen Delivery Method Room Air Positive well nourished and well developed General Appearance ED: well developed and NAD HEENT Reports moist mucous membranes HEENT Narrative: Nasal clips removed, blood in the inferior aspect of the nare, there is a small septal polyp noted nonbleeding left side. No ulcerations noted. Right nare with no abrasions or bleeding noted. Nonactive bleeding posterior pharynx. normocephalic and atraumatic Eyes EOMs intact bilaterally and conjunctivae normal General Eye ED: Yes normal appearance of both eyes Neck no lymphadenopathy and supple General: Negative for tenderness Chest Wall Chest: Negative for tenderness Resp normal respiratory effort and normal air movement Effort and Inspection: symmetric chest movement; Negative for respiratory distress Cardio regular rate, regular rhythm and no murmurs Peripheral Pulses: pulses 2+ throughout GI normal to inspection, nondistended, normoactive bowel sounds and non-tender Palpation: Negative for guarding or rebound tenderness present Back/Spine no CVA tenderness and no thoracic nor lumbar tenderness Extremity normal to inspection General Extremety ED: Negative for edema or tenderness General Extremity: Negative for edema Neuro oriented x3 and no sensory deficits noted Sensorium / Orientation: awake and alert Skin no rashes or lesions noted and no wounds MDM MDM MDM Narrative Medical decision making narrative: Interventions / MDM: Differential diagnosis: Epistaxis, chronic anticoagulation Diagnosis considered but do not suspect: N/A My EKG interpretation: N/A Imaging independently reviewed and interpreted by myself: N/A External documents reviewed: Both ED visits from last 2 days. Bleeding initially concern for left nare not the right side. There was discussion with cardiology to hold her Eliquis for 5 days. No intervention was performed as bleeding was stopped. Earlier visit this morning had Neosporin placed bilaterally. Test considered but not ordered:N/A ED course: Patient recurrent left-sided nasal bleeding. There is small nasal polyp on the septum noted. It was controlled during my evaluation. She has failed medication treatment earlier today therefore initially placed a 5.5 cm Rhino Rocket on the left nare. She will be monitored. 0105: There is mild bleeding that patient with spit up on recheck. She was dabbing anterior nare. Upon removal of the 5.5 cm Rhino, brisk bleeding was noted. Rhino Rocket switched over to 7.5 cm. Patient will be monitored. 0140: No active bleeding from the front, patient occasionally with spit up blood however she is pulling it from her pharynx. On evaluation I did not appreciate any gross bleeding. Will continue to monitor. 0225: Ambulated the patient, there is no profuse bleeding however she still Dabbing the tissue there was blood on it there is no clots. She states he would be spontaneous intermittent blood that she will spit up. Secondary to this discussed with her she changed the packing. The longest rapid Rhino 7.5 cm, Miracil was 8 cm however in comparison [id number] the rapid Rhino was longer. Therefore I replaced this pushing it more posterior for additional posterior control. After placement there was bleeding coming anteriorly, pressure will be placed with tissue at this time. Will continue to monitor. At this time we will check laboratory studies. 0300: Hemoglobin stable at 13.5. Reevaluation she was still dab with tissue mild blood, states occasionally spontaneous will have to spit up a little blood. It is not profuse. I spoke with ENT on-call Dr. Jauregui discussed her recent visits and my attempted treatment in the ED. Agrees will need observation's admission. Will keep her n.p.o. Will admit to hospitalist. If continues, possible intervention in the morning. This was discussed with patient and family. Obviously will continue to hold Eliquis. 0312: I spoke with hospitalist Dr. Chen, will admit to PCU. This is her third visit in 2 days. Re-evaluation: stable Disposition discussed with patient/family/significant other: Patient and family Case discussed with consulting clinician: Otolaryngology, hospitalist This note was generated with flikdate dictation software. It may contain incorrect words, spelling, and punctuation that were not noted in checking the note before signing. Lab Data Attestation: I reviewed the patient's lab results. Labs: Laboratory Results - last 24 hr 12/22/23 02:40 WBC 11.7 H RBC 4.46 Hgb 13.5 Hct 41.1 MCV 92.2 MCH 30.3 MCHC 32.8 RDW Std Deviation 45.1 H RDW Coeff of August 13.3 Plt Count 294 MPV 9.9 Immature Gran % (Auto) 1.200 H Neut % (Auto) 73.5 H Lymph % (Auto) 16.8 L [place] % (Auto) 7.1 Eos % (Auto) 0.9 Baso % (Auto) 0.5 Absolute Neuts (auto) 8.6 H Absolute Lymphs (auto) 1.96 Nucleated RBC % 0 PT 14.5 INR 1.1 APTT 30.1 Sodium 137 Potassium 3.6 Chloride 105 Carbon Dioxide 22.0 Anion Gap 10 BUN 16 Creatinine 1.06 H Estim Creat Clear Calc 46.36 Est GFR (MDRD) Af Amer 64 Est GFR (MDRD) Non-Af 53 L BUN/Creatinine Ratio 15.1 Glucose 162 H Calcium 9.2 Discharge Plan Dx/Rx/DC Orders Clinical Impression: Epistaxis, Chronic anticoagulation, Paroxysmal A-fib Disposition Disposition: Acute Care [facility]
[2023-12-22 02:45] LABS: Absolute Lymphocyte Count 1.96 X10^3/uL (0.83-4.51); Absolute Neutrophil Count 8.6 X10^3/uL (2.0-7.7); Basophil# 0.06 X10^3/uL; Basophil% 0.5 % (0-1); Eosinophils% 0.9 % (0-5); Hematocrit 41.1 % (37-47); Hemoglobin 13.5 g/dL (12.0-15.0); Lymphocyte # 1.96 X10^3/ul (0.83-4.51); Lymphocyte % 16.8 % (19-41); Mean Corp Hgb Conc 32.8 g/dL (32-36); Mean Corpuscular Hgb 30.3 pg (27.0-32.0); Mean Corpuscular Volume 92.2 fL (81-99); Mean Platelet Vol. 9.9 fl (6.2-12.0); Monocyte# 0.83 X10^3/uL; Monocyte% 7.1 % (0-10); NRBC Flagged by Analyzer 0 % (0-5); Neutrophil # 8.56 X10^3/uL (2.7-7.7); Neutrophil % 73.5 % (47-70); Platelet Count 294 K/mm3 (150-450); RBC Distribution Width CV 13.3 % (11.6-14.6); RBC Distribution Width SD 45.1 fl (35.1-43.9); Red Blood Count 4.46 M/mm3 (4.2-5.4); White Blood Count 11.7 K/mm3 (4.4-11.0)
[2023-12-22 02:56] LABS: International Normalized Ratio 1.1; Partial Thromboplast Time 30.1 Seconds (24.1-36.2); Prothrombin Time (Protime)PT. 14.5 SECONDS (11.7-14.9)
[2023-12-22 02:59] LABS: Anion Gap 10 (5-15); BUN 16 mg/dL (7-18); BUN/Creat Ratio 15.1 RATIO (10-20); Calcium,Total 9.2 mg/dL (8.5-10.1); Chloride 105 mmol/L (98-107); Creatinine, Serum 1.06 mg/dL (0.55-1.02); EST Glomerular Filtration Rate 53 mL/min (>60); Est Glom Filt Rate - Afr Amer 64 mL/min (>60); Estimated Creatinine Clearance 46.36 ml/min; Glucose 162 mg/dL (74-106); Potassium 3.6 mmol/L (3.5-5.1); Sodium Level 137 mmol/L (136-145)
--- NOTE | 2023-12-22 03:11 | PCM.HP.STD ---
[facility] - General General Date of Admission: 12/22/23 Date of Service: 12/22/23 Chief Complaint: Severe Nosebleed x 2 days. HPI Narrative AMADOR GRANADOS, is a 83 F with a past medical history of essential hypertension, obesity; with BMI of 33.3 this admission, generalized anxiety, history of transient global amnesia, history of appendectomy, history of cholecystectomy, history of hysterectomy, history of oophorectomy, history of Left bundle branch block, paroxysmal atrial fibrillation; on diltiazem, metoprolol and Eliquis along with a remote history of severe epistaxis after digital trauma which required cauterization of her Left nasal vault (~2018) who presents to [facility] ER complaining of severe nosebleed. Ms. Granados reports her symptoms began approximately 2 days ago on December 20, 2023 with severe epistaxis that began at ~8:00 AM when she bent over to sweep her floor when she suddenly began bleeding from both sides of her nose for ~2 hours before the bleeding halted with recommendation from cardiology to hold Eliquis 5 days and to hold pressure over her nose for ~20 minutes should her bleeding recur. She also complained of runny nose and lethargy but denied other issues and was then discharged home. She then had another bout of severe epistaxis on December 21, 2023 with a second visit to the ER ~9:00 AM along with an associated mild frontal headache and a new complaint that her ears were popping. She denied associated digital trauma, nasal trauma or other recent injury that could have triggered her latest bleeding episode with ER physician documenting dried blood in the Left anterior nasal septum with some mild blood in the oropharynx and with no active bleeding at the time of that visit so she was treated with chemical spray and instructed to apply Neosporin ointment to the nares BID and she was also instructed to return to the ER if her condition worsened. Unfortunately, ~12:30 AM on December 22, 2023 she once again began bleeding from her Right nostril in earnest with nasal clips removed and blood noted in the inferior aspect of the naris with a small septal polyp noted on the non-bleeding Left side with no ulcerations noted and with no bleeding noted in the posterior pharynx. Since she was then deemed to have failed conservative medical management a 5.5 cm Rhino-Rocket was placed in the Left nare with continued blood oozing around the device so this was then replaced with a 7.5 cm Rhino-Rocket with patient continuing to intermittently spit up blood with a stable hemoglobin of 13.5 g/dL present on admission. Then the ER physician spoke with Dr. Jauregui of ENT who recommended patient be admitted and kept NPO for intervention in the AM. There is no report of associated fever, chills, nausea, vomiting, diarrhea, constipation, chest pain or SOB and she is currently in NSR - but she was noted to have a highly elevated blood pressure of 189/93 mmHg with spikes in her blood pressure thought to be the likely underlying cause for her recurrent seemingly random bleeding episodes along with an acute exacerbation of her chronic anxiety. She was then admitted to the PCU for ongoing care for stay that is expected to extend beyond 2 midnights. [facility] Medical History (Updated 12/22/23 @ 05:[address] Imtiaz Cardoso DO) Longstanding persistent atrial fibrillation Left bundle branch block (LBBB) Obesity Paroxysmal atrial fibrillation Essential (primary) hypertension Transient global amnesia Anxiety disorder Home Medications ?Medication ?Instructions ?Recorded ?Last Taken ?Type alprazolam 0.5 mg tablet (Xanax) 0.5 mg PO QHS PRN anxiety 03/12/23 Unknown History Eliquis 5 mg tablet (apixaban) 5 mg PO BID #60 tabs 08/06/23 Unknown Rx diltiazem HCl 180 mg 180 mg PO DAILY #90 caps 08/06/23 Unknown Rx capsule,extended release 24 hr (Cartia XT) metoprolol succinate 50 mg See Rx Instructions .Route 08/06/23 Unknown Rx tablet,extended release 24 hr .COMPLEX #90 tabs losartan 100 mg tablet See Rx Instructions .Route 12/06/23 Unknown Rx .COMPLEX #90 tabs Allergy/AdvReac Type Severity Reaction Status Date / Time caffeine AdvReac Other Verified 12/22/23 00:08 Family History Father CVA (cerebral vascular accident) Mother Hypertension Heart disease CHF (congestive heart failure) Surgical History Hx of appendectomy H/O oophorectomy History of cholecystectomy H/O: hysterectomy Social History Smoking Status: Former smoker how long ago did patient quit smokin years age alcohol intake: never caffeine: No ROS ROS Narrative Review of systems: General: Patient denies fever, chills, sweats or weight loss/gain. HENT: Patient admits to recurrent epistaxis as noted above in HPI. She denies sore throat or ear pain. EYES: Denies changes in vision or discharge from eyes. Resp: Denies cough, denies shortness of breath Cardiac: Denies chest pain, palpitations or heart racing. GI: Denies abdominal pain, denies changes in bowel, denies nausea or vomiting. : Denies changes in urination Extremity: Denies swelling Musculoskeletal: Feels somewhat generally weak and unwell with mild back pain. Neuro: Patient denies headache, paresthesias or focal neurologic deficits. Heme: Patient admits to recurrent epistaxis that is spontaneous and intermittent with 3 visits to the ER in the last 2 days. Skin: Denies rashes, jaundice or abscess Psychiatric: Patient admits to an acute exacerbation of her chronic anxiety due to her frequent ER visits and continued bleeding. She denies suicidal or homicidal ideation Endocrine: No polyuria, polydipsia or polyphagia. The rest of the 14 point ROS was negative except for positives in HPI. Vital Signs Vital Signs Vital Signs: 12/22/23 00:04 12/22/23 02:03 Temperature 97.8 F Temperature Source Oral Pulse Rate 101 H 88 Respiratory Rate 18 16 Blood Pressure 150/119 H 189/93 H Blood Pressure Mean 129 125 Pulse Ox 96 97 Oxygen Delivery Method Room Air Weight Weight: 206 lb 6.4 oz Body Mass Index (BMI) 33.3 Physical Exam Const alert, oriented x3 and no apparent distress Constitutional Narrative: Obese. General Appearance: cooperative HEENT normocephalic, head/scalp atraumatic, hearing grossly normal bilaterally and moist oral mucous membranes HEENT Narrative: Rhino-Rocket present in Left naris with scant blood-tinged mucus oozing from site. Eyes PERRL and EOMs intact bilaterally Neck no lymphadenopathy and supple Resp normal respiratory effort, no retractions, no use of accessory muscles and clear to auscultation bilaterally Cardio regular rate and regular rhythm GI normal to inspection, nondistended, normoactive bowel sounds, soft to palpation, non-tender and non-distended GI Narrative: Obese. Extremity normal to inspection, full ROM and no clubbing, cyanosis or edema Skin Skin Narrative: Patient has no evidence of rash, abscess or jaundice. Neuro oriented x3, CN's II-XII intact bilaterally, moves all extremities and no focal motor deficits Sensorium / Orientation: awake, alert, oriented to person, oriented to place and oriented to time Speech: speech normal Psych Psych Narrative: Patient is requesting something for significant anxiety since she cannot take her oral Xanax as prescribed due to being n.p.o. for procedure. Mood & Affect: anxious Results Medical Records Data Attestation: I reviewed the patient's medical records Lab / Micro Data Attestation: I reviewed the patient's lab results. 12/22/23 02:40 12/22/23 02:40 Labs: Laboratory Results - last 24 hr 12/22/23 02:40: WBC 11.7 H, RBC 4.46, Hgb 13.5, Hct 41.1, MCV 92.2, MCH 30.3, MCHC 32.8, RDW Std Deviation 45.1 H, RDW Coeff of August 13.3, Plt Count 294, MPV 9.9, Immature Gran % (Auto) 1.200 H, Neut % (Auto) 73.5 H, Lymph % (Auto) 16.8 L, [place] % (Auto) 7.1, Eos % (Auto) 0.9, Baso % (Auto) 0.5, Absolute Neuts (auto) 8.6 H, Absolute Lymphs (auto) 1.96, Nucleated RBC % 0, PT 14.5, INR 1.1, APTT 30.1, Sodium 137, Potassium 3.6, Chloride 105, Carbon Dioxide 22.0, Anion Gap 10, BUN 16, Creatinine 1.06 H, Estim Creat Clear Calc 46.36, Est GFR (MDRD) Af Amer 64, Est GFR (MDRD) Non-Af 53 L, BUN/Creatinine Ratio 15.1, Glucose 162 H, Calcium 9.2 Assessment & Plan Assessment/Plan (1) Epistaxis: (2) Adverse drug reaction: QUALIFIERS: Encounter type: initial encounter Qualified Code(s): T50.905A - Adverse effect of unspecified drugs, medicaments and biological substances, initial encounter (3) Chronic anticoagulation: (4) Uncontrolled hypertension: (5) Acute anxiety: (6) Anxiety disorder: QUALIFIERS: Anxiety disorder type: unspecified anxiety disorder Qualified Code(s): F41.9 - Anxiety disorder, unspecified (7) Obesity: QUALIFIERS: Obesity classification: adult class 1 (BMI 30 - 34.9) Serious obesity comorbidity presence: unspecified whether serious comorbidity present Body mass index: BMI 33.0-33.9 Obesity type: unspecified obesity type Qualified Code(s): E66.9 - Obesity, unspecified; Z68.33 - Body mass index [BMI] 33.0-33.9, adult (8) Paroxysmal A-fib: PLAN: Plan 1. Recurrent Epistaxis with 3 visits to the ER in the last two days with Rhino-Rocket in Left naris - Admit to PCU. Keep strict NPO in preparation for ENT intervention with help appreciated in advance. Start empiric IV Doxycycline with Rhino-Rocket in place to prevent infection. Give Zofran prn for nausea and vomiting. Give Morphine IV prn for severe (level 6-10/10) pain. 2. Adverse Drug Reaction to Eliquis primarily causing #1 - Continue to hold Eliquis until further notice. Patient states she will no longer take Eliquis as she has not had a recurrence of her paroxysmal atrial fibrillation and more than 5 years and she feels at this point that the risks of rebleed outweigh any potential benefits. 3. Uncontrolled hypertension likely playing a secondary role in triggering recurrent epistaxis complicating #1 & #2 - Give Hydralazine IV prn for systolic blood pressure > 160 mmHg. Restart oral antihypertensives when patient is cleared to restart oral intake by ENT. 4. Acute exacerbation of chronic anxiety arising from #1 - #3 - Give Ativan 0.25 mg IV x 1 with patient n.p.o. for procedure. Restart as needed Xanax as previous once patient is cleared for oral intake. 5. Remote history of Severe Epistaxis after digital trauma treated with cauterization of her Left nasal vault (~2018) - Noted. 6. Paroxysmal atrial fibrillation; on diltiazem, metoprolol and Eliquis - Stable with patient currently in NSR. Restart home regimen after ENT evaluation. 7. Obesity; with BMI of 33.3 this admission - Weight loss will be recommended. Check TSH. This complicates her case and may hamper recovery. 8. Generalized anxiety - Stable. Restart prn Xanax once she is able to tolerate oral intake. 9. History of transient global amnesia - Noted. 10. History of appendectomy - Noted. 11. History of cholecystectomy - Noted. 12. History of hysterectomy - Noted. 13. History of oophorectomy - Noted. 14. History of Left bundle branch block - Noted. 15. DVT prophylaxis - SCD's only with active hemorrhage from recurrent epistaxis noted in #1. Total time: Approximately 75 minutes. Charges/Coding Visit Charges Inpatient E&M: 18057 Init Hosp L3
[2023-12-22] MEDS: 0.9% Normal Saline (1000mL) 1,000 ML 75 ML IV ×2 (03:12→17:58)
[2023-12-22] MEDS: Doxycycline 100 MG in Dextrose 5%-Water (250mL Bag) 250 ML 250 MG IV ×2 (04:35→20:59)
[2023-12-22] MEDS: LORazepam 2 MG/ML Syringe 0.25 MG IV (04:54)
[2023-12-22 05:54] LABS: Phosphorus 2.9 mg/dL (2.5-4.9)
[2023-12-22 07:37] LABS: T4 Free Direct 1.29 ng/dL (0.76-1.46)
--- NOTE | 2023-12-22 08:41 | PCM.CONS.GEN ---
Assessment & Plan Assessment/Plan (1) Epistaxis: PLAN: 83 year old with epistaxis -no significant bleeding since packed in ED. -diastolic BP elevated at 105 -strict BP control, continue to hold AC. would leave packing in until removal saturday in clinic, holding eliquis until then. patient very anxious with poor functionality; observation for 24-48 hours reasonable. HPI Consult Data Date of Consult: 12/22/23 HPI Narrative Reason for Consultation: epistaxis HPI Narrative: AMADOR GRANADOS, is a 83 F who presents with epistaxis. she is on eliquis for afib. this was stopped roughly 24 hours ago after first episode. a second episode prompted an ER visit; this was self-remitting. she was packed with a rhino rocket last night and has had no significant bleeding. [facility] Medical History (Updated 12/22/23 @ 05:[address] Imtiaz Cardoso DO) Longstanding persistent atrial fibrillation Left bundle branch block (LBBB) Obesity Paroxysmal atrial fibrillation Essential (primary) hypertension Transient global amnesia Anxiety disorder Home Medications ?Medication ?Instructions ?Recorded ?Last Taken ?Type alprazolam 0.5 mg tablet (Xanax) 0.5 mg PO QHS PRN anxiety 03/12/23 Unknown History Eliquis 5 mg tablet (apixaban) 5 mg PO BID #60 tabs 08/06/23 Unknown Rx diltiazem HCl 180 mg 180 mg PO DAILY #90 caps 08/06/23 Unknown Rx capsule,extended release 24 hr (Cartia XT) metoprolol succinate 50 mg See Rx Instructions .Route 08/06/23 Unknown Rx tablet,extended release 24 hr .COMPLEX #90 tabs losartan 100 mg tablet See Rx Instructions .Route 12/06/23 Unknown Rx .COMPLEX #90 tabs Allergy/AdvReac Type Severity Reaction Status Date / Time caffeine AdvReac Other Verified 12/22/23 00:08 Family History Father CVA (cerebral vascular accident) Mother Hypertension Heart disease CHF (congestive heart failure) Surgical History Hx of appendectomy H/O oophorectomy History of cholecystectomy H/O: hysterectomy Social History Smoking Status: Former smoker how long ago did patient quit smokin years age alcohol intake: never caffeine: No ROS Constitutional Constitutional: Reports systems reviewed and no addt'l complaints, except as documented Physical Exam Const alert General Appearance: cooperative HEENT normocephalic HEENT Narrative: left rhino rocket in place. posterior pharynx clear with no bleeding/clots. Nose: external nose normal Lab / Micro Data 12/22/23 02:40 12/22/23 02:40 Labs: Laboratory Results - last 24 hr 12/22/23 02:40: WBC 11.7 H, RBC 4.46, Hgb 13.5, Hct 41.1, MCV 92.2, MCH 30.3, MCHC 32.8, RDW Std Deviation 45.1 H, RDW Coeff of August 13.3, Plt Count 294, MPV 9.9, Immature Gran % (Auto) 1.200 H, Neut % (Auto) 73.5 H, Lymph % (Auto) 16.8 L, [place] % (Auto) 7.1, Eos % (Auto) 0.9, Baso % (Auto) 0.5, Absolute Neuts (auto) 8.6 H, Absolute Lymphs (auto) 1.96, Nucleated RBC % 0, PT 14.5, INR 1.1, APTT 30.1, Sodium 137, Potassium 3.6, Chloride 105, Carbon Dioxide 22.0, Anion Gap 10, BUN 16, Creatinine 1.06 H, Estim Creat Clear Calc 46.36, Est GFR (MDRD) Af Amer 64, Est GFR (MDRD) Non-Af 53 L, BUN/Creatinine Ratio 15.1, Glucose 162 H, Calcium 9.2, Phosphorus 2.9, Magnesium 2.0, TSH 5.390 H, Free T4 1.29
[2023-12-22] MEDS: hydrALAZINE 20 MG/ML Vial 10 MG IV (10:58)
[2023-12-22] MEDS: Metoprolol(XL)Succ 50 MG Tablet PO (13:18)
[2023-12-22] MEDS: dilTIAZem CD 180 MG Capsule PO (13:19)
[2023-12-22] MEDS: ALPRAZolam 0.5 MG Tablet PO ×2 (13:19→21:09)
[2023-12-22] MEDS: Losartan Potassium 100 MG Tablet PO (13:32)
[2023-12-22] MEDS: Morphine 2 MG/ML Syringe IV (21:10)
[2023-12-23] VITALS (7 sets, daily range): BP systolic 147–177; BP diastolic 61–69; PULSE 63–84; RESP 15–18; TEMP 36.6–36.7; O2SAT 95–99; BMI 33.7
[2023-12-23] MEDS: hydrALAZINE 20 MG/ML Vial 10 MG IV (04:00)
[2023-12-23] MEDS: 0.9% Normal Saline (1000mL) 1,000 ML 75 ML IV (04:01)
[2023-12-23 05:43] LABS: Absolute Lymphocyte Count 2.09 X10^3/uL (0.83-4.51); Absolute Neutrophil Count 6.7 X10^3/uL (2.0-7.7); Basophil# 0.05 X10^3/uL; Basophil% 0.5 % (0-1); Eosinophil# 0.18 X10^3/uL; Eosinophils% 1.8 % (0-5); Hematocrit 34.4 % (37-47); Hemoglobin 11.3 g/dL (12.0-15.0); Lymphocyte # 2.09 X10^3/ul (0.83-4.51); Lymphocyte % 20.6 % (19-41); Mean Corp Hgb Conc 32.8 g/dL (32-36); Mean Corpuscular Volume 94.5 fL (81-99); Mean Platelet Vol. 10.3 fl (6.2-12.0); Monocyte# 0.92 X10^3/uL; Monocyte% 9.1 % (0-10); NRBC Flagged by Analyzer 0 % (0-5); Neutrophil # 6.72 X10^3/uL (2.7-7.7); Neutrophil % 66.2 % (47-70); Platelet Count 262 K/mm3 (150-450); RBC Distribution Width CV 13.4 % (11.6-14.6); Red Blood Count 3.64 M/mm3 (4.2-5.4); White Blood Count 10.1 K/mm3 (4.4-11.0)
[2023-12-23 06:10] LABS: ALB/GLOB Ratio 0.9 RATIO (0.9-2.4); AST(SGOT) 41 U/L (15-37); Alanine Aminotransfer ALT/SGPT 32 U/L (13-56); Albumin, Serum 2.8 g/dL (3.2-5.0); Alkaline Phosphatase 101 U/L (45-117); Anion Gap 6 (5-15); BUN 9 mg/dL (7-18); BUN/Creat Ratio 10.3 RATIO (10-20); Calcium,Total 8.6 mg/dL (8.5-10.1); Chloride 109 mmol/L (98-107); Creatinine, Serum 0.87 mg/dL (0.55-1.02); EST Glomerular Filtration Rate 66 mL/min (>60); Est Glom Filt Rate - Afr Amer 80 mL/min (>60); Estimated Creatinine Clearance 56.91 ml/min; Glucose 109 mg/dL (74-106); Potassium 3.2 mmol/L (3.5-5.1); Protein, Total 5.8 g/dL (6.4-8.2); Sodium Level 137 mmol/L (136-145)
[2023-12-23] MEDS: hydrALAZINE 25 MG Tablet PO (08:13)
[2023-12-23] MEDS: Metoprolol(XL)Succ 50 MG Tablet PO (08:13)
[2023-12-23] MEDS: Losartan Potassium 100 MG Tablet PO (08:13)
[2023-12-23] MEDS: dilTIAZem CD 180 MG Capsule PO (08:14)
[2023-12-23] MEDS: Doxycycline 100 MG in Dextrose 5%-Water (250mL Bag) 250 ML 250 MG IV (08:42)
--- NOTE | 2023-12-23 10:36 | PCM.DC.SUM ---
Providers Date of Admission: 12/22/23 Date of Discharge: 12/23/23 Primary Care Physician: Dr. Rosalino Raza MD Reason For Visit: RECURRENT EPISTAXIS 2/2 ADVERSE DRUG RXN TO Diagnosis Discharge Diagnosis (1) Epistaxis: Status: Acute Code(s): R04.0 - Epistaxis Medications at Discharge Home Medications alprazolam 0.5 mg tablet (Xanax) 0.5 mg PO QHS PRN anxiety 03/12/23 Eliquis 5 mg tablet (apixaban) 5 mg PO BID #60 tabs 08/06/23 diltiazem HCl 180 mg capsule,extended release 24 hr (Cartia XT) 180 mg PO DAILY #90 caps 08/06/23 metoprolol succinate 50 mg tablet,extended release 24 hr See Rx Instructions .Route .COMPLEX #90 tabs 08/06/23 losartan 100 mg tablet See Rx Instructions .Route .COMPLEX #90 tabs 12/06/23 hydralazine 25 mg tablet 25 mg PO TID #90 tabs 12/23/23 Hospital Course Operations None Procedures - (Rhino Rocket placement) Summary of Care Provided Minutes Spent on Discharge: 37 Hospital Course: Mrs. Briseno is a an 83-year-old white female who presented to emergency department at [facility] on 12/22/2023 due to severe nosebleeds x 2 days. She is chronically anticoagulated with Eliquis due to a history of paroxysmal atrial fibrillation and has a history of severe epistaxis which required cauterization of her left nasal vault in about 2018. Upon presentation she reported that about 2 days prior to presentation she began with severe epistaxis that began at 8 AM when she bent over to sweep her floor. At that time she bled for about 2 hours before she was able to get the bleeding to stop and then called her [facility] office. They recommended holding her Eliquis for 5 days and to hold pressure to her nose for 20 minutes if bleeding should recur. She had another bout of severe epistaxis on December 20 at which time she came to the emergency department. She was treated with chemical spray and instructed to apply Neosporin to the nares twice daily and return to the emergency department if her condition worsen as bleeding had was able to be stopped at that time. Unfortunately, at 12:30 in the morning on 12/22/2023 she began bleeding again and was unable to get the bleeding to stop. A 5.5 cm Rhino Rocket was placed in the emergency department and she continued to ooze around the device at which time it was then transition to a 7.5 cm Rhino Rocket. The emergency department physicians spoke to ENT (Dr. Jauregui) who recommended the patient be admitted and kept n.p.o. for possible intervention. Her blood pressure was noted to be markedly high at the time of admission and remained higher than at goal throughout her entire hospital course with her goal being 130/80. With regards to her blood pressure she was maintained on her home medications including diltiazem, metoprolol, and losartan and we added hydralazine 25 mg 3 times daily and have recommended she follow-up this week with her primary care physician for blood pressure check. ENT evaluated the patient on December 21 and recommended monitoring her overnight. She did have a hemoglobin drop from 13.5-11.3 but had no significant bleeding and had no blood noted in the posterior oropharynx at the time of discharge. It was recommended by ENT that the packing stay in until removal in the clinic on Saturday and hold her Eliquis until he can further evaluate the ability to restart the medication. Given her stability on 12/23/2023 we were able to discharge her home in stable condition and have asked that she follow-up with Dr. Jauregui in the ENT clinic on Saturday. I have asked her to call tomorrow to schedule that appointment. We have also asked her to follow-up with her primary care physician within the next week to have her blood pressure reassessed and monitor for the need of up titration of her hydralazine. Prescriptions for the hydralazine were sent to local pharmacy prior to discharge. Information for follow-up was given to the patient prior to discharge. Discharge diagnoses: Epistaxis Mild anemia Chronic anticoagulation-on hold Paroxysmal atrial fibrillation Uncontrolled hypertension History of transient global amnesia Obesity Anxiety disorder Physical Exam Const alert, oriented x3, no apparent distress, no limitations and well nourished Constitutional Narrative: Obese, older, white female, sitting up in bed, patient appears comfortable, does not appear toxic, son at bedside General Appearance: cooperative, comfortable, well kempt and well developed Orientation / Consciousness: awake, oriented to person, oriented to place and oriented to time Exam Limitations: no limitations Nutritional Appearance: obese HEENT normocephalic, head/scalp atraumatic, hearing grossly normal bilaterally and moist oral mucous membranes HEENT Narrative: Left nares with Rhino Rocket in place, no drainage around the Rhino Rocket, posterior pharynx observed with no blood in the posterior pharynx Eyes PERRL, EOMs intact bilaterally and conjunctivae normal Eyes Narrative: No scleral icterus Neck no lymphadenopathy and supple Neck Narrative: Trachea midline, no thyroid enlargement Resp normal respiratory effort, no retractions, no use of accessory muscles and clear to auscultation bilaterally Auscultation: Negative for rales, rhonchi or wheezes Cardio regular rate, S1 normal heart sound, S2 normal heart sound, no murmurs, no rub, no gallops and no clicks Cardio Narrative: Irregular irregular rhythm GI normal to inspection, nondistended, normoactive bowel sounds, soft to palpation and non-tender Extremity no clubbing, cyanosis or edema Extremity Narrative: Radial and pedal pulses are 2+ Skin no rashes or lesions noted, no wounds, skin turgor normal and no jaundice Neuro oriented x3, moves all extremities and no focal motor deficits Speech: speech normal Psych affect normal Psych Narrative: Appropriate, interacts well, eye contact is good, no significant anxiety noted at this time Weight / BMI Weight Weight: 95 kg Body Mass Index (BMI) 33.7 ABG / Lab / Microbiology Data 12/23/23 05:04 12/23/23 05:04 Laboratory: Laboratory Results - last 24 hr 12/23/23 05:04: WBC 10.1, RBC 3.64 L, Hgb 11.3 L, Hct 34.4 L, MCV 94.5, MCH 31.0, MCHC 32.8, RDW Std Deviation 46.0 H, RDW Coeff of August 13.4, Plt Count 262, MPV 10.3, Immature Gran % (Auto) 1.800 H, Neut % (Auto) 66.2, Lymph % (Auto) 20.6, [place] % (Auto) 9.1, Eos % (Auto) 1.8, Baso % (Auto) 0.5, Absolute Neuts (auto) 6.7, Absolute Lymphs (auto) 2.09, Nucleated RBC % 0, Sodium 137, Potassium 3.2 L, Chloride 109 H, Carbon Dioxide 22.0, Anion Gap 6, BUN 9, Creatinine 0.87, Estim Creat Clear Calc 56.91, Est GFR (MDRD) Af Amer 80, Est GFR (MDRD) Non-Af 66, BUN/Creatinine Ratio 10.3, Glucose 109 H, Calcium 8.6, Total Bilirubin 1.20 H, AST 41 H, ALT 32, Alkaline Phosphatase 101, Total Protein 5.8 L, Albumin 2.8 L, Globulin 3.0, Albumin/Globulin Ratio 0.9 D/C Instructions Discharge Diet: Low fat / Low cholesterol Meaningful Use Info Meaningful Use Meaningful Use Diagnoses (Choose all that apply): None applicable Ischemic Stroke Statin Dosing Therapy Reference: STATIN DOSE THERAPY REFERENCE: * Patients > 75 years receive moderate or high dose statin therapy. * Patients 75 years or YOUNGER should receive HIGH intensity statin dose unless contraindicated. You will be required to document reason for non-treatment if statin daily dose does not meet guidelines. HIGH DOSE STATIN THERAPY DAILY Atorvastatin > than or = to 40 mg Rosuvastatin > than or = to 20 mg Amlodipine + Atorvastatin > than or = to 2.5/40 mg Ezetimibe + Simvastatin 10/80 mg Simvastatin 80mg Discharge Plan Admission Admit Date/Time: 12/22/23 03:49 Primary Reason for Your Visit: Nasal bleeding Attending Provider: Maria Dolores Sy Primary Care Provider: Rosalino Raza Consulting Providers: Imtiaz Cardoso; Tanner Chong Instructions Additional Instructions / Restrictions: 1. Please call the ear nose and throat physicians office tomorrow to set up an appointment to be seen in his clinic on Saturday as noted below. 2. Hold your Eliquis (apixaban) until instructed otherwise by ENT 3. Your blood pressure was noted to be above goal which is 130/80 consistently during her hospital course. We did add additional medication to your home regimen and sent a new prescription to your pharmacy. Please continue this and follow-up with your primary care physician for blood pressure check next week as available. Please call Saturday to set up an appointment. Discharge Orders/Prescriptions Prescriptions: New hydralazine 25 mg Tablet 25 mg PO TID Qty: 90 0RF Continued alprazolam [Xanax] 0.5 mg tablet 0.5 mg PO QHS PRN (Reason: anxiety) diltiazem HCl [Cartia XT] 180 mg capsule,extended release 24hr 180 mg PO DAILY Qty: 90 4RF metoprolol succinate 50 mg tablet extended release 24 hr See Rx Instructions .ROUTE .COMPLEX Qty: 90 3RF Dose Instruction: TAKE 1 TABLET BY MOUTH ONCE DAILY Rx Instructions: TAKE 1 TABLET BY MOUTH ONCE DAILY losartan 100 mg tablet See Rx Instructions .ROUTE .COMPLEX Qty: 90 3RF Dose Instruction: TAKE 1 TABLET BY MOUTH EVERY DAY Rx Instructions: TAKE 1 TABLET BY MOUTH EVERY DAY Held Eliquis 5 mg tablet 5 mg PO BID Qty: 60 12RF Hold Instructions: until instructed that it is ok to restart by ENT (Dr. Jauregui) Referrals / Follow Up: Delgado Jaurgeui MD [Med Staff - Active Staff] - See Referral Note (Please call tomorrow on 12/24/2023 to set up an appointment to be seen on 12/25/[address] Jauregui's instructions) Rosalino Raza MD [Primary Care Provider] - Within 1 Week (Please call Saturday to set up an appointment to be seen for your blood pressure) Disposition Disposition (needs filled in before D/C Order can be placed): Home, Self Care Charges/Coding Visit Charges Inpatient E&M: 55058 Disch Hosp >30min
[2023-12-23 12:40] LABS: Hemoglobin 11.7 g/dL (12.0-15.0)
== END 2023-12-23 12:17 | disposition home or self-care (01) | DRG 151 ==
LOC: ED 03:10 → PCU 03:38
PROVIDERS: Admitting Provider Internal Medicine; Emergency Provider Emergency Medicine; PCP Family Medicine; Visit Provider Internal Medicine
DX: R04.0 Epistaxis (principal); D68.32 Hemorrhagic disorder due to extrinsic circulating anticoagulants; I10 Essential (primary) hypertension; E66.9 Obesity, unspecified; I48.0 Paroxysmal atrial fibrillation; J33.9 Nasal polyp, unspecified; T45.515A Adverse effect of anticoagulants, initial encounter; Z68.33 Body mass index [BMI] 33.0-33.9, adult; F41.1 Generalized anxiety disorder; Z79.01 Long term (current) use of anticoagulants; Z79.899 Other long term (current) drug therapy; Z87.891 Personal history of nicotine dependence
CPT/HCPCS: 36415; 80048; 80053; 83735; 84100; 84439; 84443; 85018; 85025; 85610; 85730; 99282; 99285; J7030

== ENCOUNTER → 2024-03-13 | Outpatient (CLI) | payer MEDICARE, OTHER, SELFPAY | END | disposition home or self-care (01) | LOC: CVS 08:31 | PROVIDERS: PCP Family Medicine; Referring Provider Physician Assistant Medical; Visit Provider Physician Assistant Medical | DX: R03.0 Elevated blood-pressure reading, without diagnosis of hypertension (principal) | CPT/HCPCS: 93788 ==

== ENCOUNTER 2025-03-13 16:26 | Emergency (ER) | payer MEDICARE, OTHER, SELFPAY ==
[2025-03-13 16:27] VITALS: BP 157/73; PULSE 76; RESP 16; TEMP 37; O2SAT 96
[2025-03-13 16:30] VITALS: BMI 30.8
--- OUTSIDE RECORDS SUMMARY | 2025-03-13 17:04 | XMS RPT_ITS | CCD ---
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 Rosalino Gonzalez Attending Unavail able Dr. Rosalino Carmona Primary Care Unavail able Rosalino Carmona MD Primary Care Provider Adri BRANTLEY, Cherelle Unavailable BREANNA CANSECO Referring Unavailable ROSALINO CARMONA Primary Care Unavailable Haagen EMPLOYEE BENEFITS SPECIALIST.Keturah COFFEY Unavailable Suppan EMPLOYEE BENEFITS SPECIALIST.ALEXX Orquidea A Unavailable Rosalino Carmona MD Primary Care Provider [phone] ROSALINO CARMONA Referring Unavailable ROSALINO CARMONA Primary Care Unavailable Suppan EMPLOYEE BENEFITS SPECIALIST.ALEXX, Orquidea A Unavailable Suppan EMPLOYEE BENEFITS SPECIALIST.ALEXX Orquidea A Unavailable Rosalino Carmona Referring Unavailable Kristine, Rosalino Primary Care Unavailable Demetrice Santiago Attending Unavail able Kristine, Rosalino Primary Care Unavailable Paton, Rosalino Referring Unavailable Demetrice Santiago Attending Unavail able PatonRosalino Primary Care Unavailable Roland Harley Attending Unavailable Demetrice Santiago Referring Unavail able Kristine, Rosalino Primary Care Unavailable Demetrice Santiago Attending Unavail able Demetrice Santiago Referring Unavail able Kristine, Rosalino Primary Care Unavailable Kristine, Rosalino Referring Unavailable Demetrice Santiago Attending Unavail able Dr. Rosalino Carmona MD Primary Care Physician [phone] Dr. Rosalino Carmona MD Referring Provider Demetrice Santiago Attending Physician ROSALINO CARMONA Attending Unavailable KRISTINE, ROSALINO Calloway Primary Care Unavailable ORQUIDEA ROBERTSON Attending Unavailable KRISTINE, ROSALINO Calloway Primary Care Unavailable KRISTINE, ROSALINO Calloway Primary Care Unavailable VETOVITZ, BREANNA Attending Unavailable KRISTINE, ROSALINO Calloway Primary Care Unavailable VETOVITZ, BREANNA Attending Unavailable KRISTINE, ROSALINO Calloway Attending Unavailable ROSALINO CARMONA Primary Care Unavailable ROSALINO CARMONA Referring Unavailable KRISTINE, ROSALINO Calloway Primary Care Unavailable KRISTINE, ROSALINO Calloway Referring Unavailable KRISTINE, ROSALINO Calloway Primary Care Unavailable VETOVITZ, BREANNA Referring Unavailable KRISTINE, ROSALINO Calloway Primary Care Unavailable VETOVITZ, BREANNA Attending Unavailable SUPPANFAHEEMORQUIDEA Referring Unavailable KRISTINE, ROSALINO Calloway Primary Care Unavailable SUPPANFAHEEMORQUIDEA Referring Unavailable ROSALINO CARMONA Primary Care Unavailable VETOVITZ, BREANNA Referring Unavailable VETOVITZ, BREANNA Attending Unavailable ROSALINO CARMONA Primary Care Unavailable Allergies Allergy Classification Reported Allergen(s) Allergy Type Date of Onset Reaction(s) Facility (20 sources) caffeine; Translations: [CAFFEINE] Drug Allergy 4 Intolerance Adisn Work Phone: Comment on above: PALPITATIONS (4 sources) NKDA drug allergy 3 [place] [facility] Work Phone: (1 source) ALLERGIES NOT ON FILE; Translations: [ALLERGIES NOT ON FILE] Propensity to adverse reactions (disorder) [facility] 2 Repository Medications Current Medications Medication Drug Class(es) Dates Sig (Normalized) Sig (Original) amoxicillin 875 mg / clavulanate 125 mg oral tablet (2 sources) Penicillin-class Antibacterial Start: 12-02-2024 End: 12-09-2024 take 1 tablet by mouth every twelve hours amoxicillin-clav ulanate potassium (AUGMENTIN) 875-125 mg per tablet Indications: Bacterial sinusitis Take 1 tablet by mouth every 12 hours for 7 days. 14 tablet 12/02/2024 12/09/2024 Active Start: 05-26-2024 End: 06-05-2024 take 1 tablet by mouth twice daily amoxicillin-clavulanate potassium (AUGMENTIN) 875-125 mg per tablet Indications: Acute recurrent maxillary sinusitis Take 1 tablet by mouth two times a day for 10 days. 20 tablet 05/26/2024 06/05/2024 Active apixaban 5 mg oral tablet (20 sources) Factor Xa Inhibitor Start: 02-06-2018 End: 08-19-2024 take 1 tablet by mouth twice daily Apixaban (Eliquis) 5 mg tablet Active 5 mg PO TWICE A DAY 60 August 19, 2024 8:28am Complies with drug therapy Comment on above: Take 5 mg by mouth t wice daily. doxycycline hyclate 100 mg oral tablet (6 sources) Tetracycline-clas s Drug Start: 01-24-2024 End: 02-03-2024 take 1 tablet by mouth twice daily doxycycline (VIBRA-TABS) 100 mg tablet Indications: Acute bronchitis, unspecified organism Take 1 tablet by mouth two times a day for 10 days. 20 tablet 01/24/2024 02/03/2024 Active Start: 04-18-2022 End: 04-28-2022 take 1 tablet by mouth twice daily doxycycline monohydrate 100 mg tablet Take 1 tablet by mouth twice daily for 10 days. 20 tablet 0 04/18/2022 04/28/2022 Active Comment on above: Take 1 tablet by abe twice daily for 10 days. hydrOXYzine hydrochloride 25 mg oral tablet (13 sources) Antihistamine Start: 12-27-19 End: 04-23-19 take 1 tablet by mouth every eight hours as needed for anxiety and anxiety hydrOXYzine HCl (ATARAX) 25 mg tablet Indications: Anxiety Take 1 tablet by mouth three times a day as needed for itching/rash. For anxiety 60 tablet 2 01/24/2024 04/23/2024 Active levothyroxine sodium 0.025 mg oral tablet (4 sources) l-Thyroxine Start: 12-23-19 End: 03-22-20 25 take 1 tablet by mouth once daily Levothyroxine (Synthroid) 25 mcg tablet Active 25 ug PO daily January 08, 2025 12:00am Complies with drug therapy losartan potassium 100 mg oral tablet (20 sources) Angiotensin 2 Receptor Mary Beth Start: 03-20-20 End: 01-08-20 take 1 tablet by mouth once daily Losartan 100 mg tablet Active 0 .ROUTE .COMPLEX 90 3 January 07, 2025 12:14pm blood pressure TAKE 1 TABLET BY MOUTH EVERY DAY Complies with drug therapy Start: 02-06-2018 End: 03-20-2018 take 1 tablet by mouth once daily Losartan 50 mg tablet Discontinued 50 mg PO DAILY February 06, 2018 12:00am March 20, 2018 10:28am Start: 02-26-2012 take 1 tablet by abe th once daily COZAAR 50 MG TABS One tablet by mouth daily LOSARTAN POTASSIUM [id number] Jeremy Mchugh MD Comment on above: Take 1 tablet by abe th once daily. sertraline 50 mg oral tablet (4 sources) Serotonin Reuptake Inhibitor Start: 04-28-2024 End: 04-28-2025 take 1 tablet by mouth once daily, then take 0.5 tablet by mouth once daily, then take 1 tablet by mouth once daily sertraline (ZOLOFT) 50 mg tablet Indications: Anxiety Take 1 tablet by mouth once daily. Take 1/2 tab once a day orally for one week then 1 tab once a day 30 tablet 04/28/2024 05/26/2024 Discontinued (Other) Completed/Discontinued Medications Medication Drug Class(es) Dates Sig (Normalized) Sig (Original) ALPRAZolam 0.5 mg oral tablet (20 sources) Benzodiazepine Start: 03-12-2023 End: 07-10-2024 take 1 tablet by mouth at bedtime as needed for anxiety Alprazolam (Xanax) 0.5 mg tablet Discontinued 0.5 mg PO AT BEDTIME as needed for anxiety March 12, 2023 1:00am July 10, 2024 9:56am Start: 02-06-2018 End: 04-20-2020 Alprazolam 0.5 mg tablet Dis continued 0.5 mg PO 2 to 3 times per day as needed February 06, 2018 12:00am April 20, 2020 3:10pm Start: 11-15-2011 End: 04-28-2024 ALPRAZolam (XANAX) 0.5 mg ta blet Taking as needed 07/11/2012 04/28/2024 Discontinued (Other) Comment on above: XANAX 0.5 MG TABS Taking as needed amLODIPine 10 mg oral tablet (14 sources) Dihydropyridine Calcium Channel Mary Beth Start: 03-17-20 End: 12-03-19 take 1 tablet by mouth once daily Amlodipine 10 mg tablet Discontinued 10 mg PO DAILY 90 3 October 12, 2024 1:22pm October 14, 2024 11:43am aspirin 81 mg delayed release oral tablet (3 sources) Nonsteroidal Anti-inflammatory Drug Start: 02-07-20 End: 02-07-20 take 1 tablet by mouth once daily Aspirin (Adult Aspirin Regimen) 81 mg tablet,delayed release (DR/EC) Discontinued 81 mg PO DAILY February 06, 2018 12:00am February 06, 2018 9:38am Start: 11-15-2011 take 1 tablet by abe once daily ASPIRIN 81 MG TABS One tablet by mouth daily ASPIRIN [id number] Aixa Sue RN benzonatate 100 mg oral capsule (20 sources) Non-narcotic Antitussive Start: 04-18-2022 End: 12-27-2023 take 1 capsule by mouth every eight hours as needed benzonatate (TESSALON PERLES) 100 mg capsule Take 1 capsule by mouth three times daily as needed for cough. 30 capsule 1 04/18/2022 12/27/2023 Discontinued (Course of therapy completed) Comment on above: Take 1 capsule by mo [facility] three times daily as needed for cough. betamethasone 3 mg/ml / betamethasone acetate 3 mg/ml injectable suspension (20 sources) Corticosteroid Start: 12-28-2024 End: 12-28-2024 betamethasone acetate-betamethas one sodium phosphate 6 mg injection (CELESTONE) Start: 12-28-2024 End: 12-28-2024 6 mg, Injection - FOR ORTHO USE ONLY, ONCE, 1 dose, Starting on Sat12/28/24 at 0839, Until Sat12/28/24 at 0839 Start: 09-21-2024 End: 09-21-2024 betamethasone acetate-betame thasone sodium phosphate 6 mg injection (CELESTONE) Start: 09-21-2024 End: 09-21-2024 6 mg, Injection - FOR ORTHO USE ONLY, ONCE, 1 dose, Starting on 09/21/24 at 0910, Until 09/21/24 at 0910 Start: 06-08-2024 End: 06-08-2024 betamethasone acetate-betame thasone sodium phosphate 6 mg injection (CELESTONE) Start: 06-08-2024 End: 06-08-2024 6 mg, Injection - FOR ORTHO USE ONLY, ONCE, 1 dose, Starting on 06/08/24 at 0832, Until 06/08/24 at 0832 Start: 03-02-2024 End: 03-02-2024 betamethasone acetate-betame thasone sodium phosphate 6 mg injection (CELESTONE) Start: 03-02-2024 End: 03-02-2024 6 mg, Injection - FOR ORTHO USE ONLY, ONCE, 1 dose, Starting on 03/02/24 at 0926, Until Sat03/02/24 at 0926 Start: 11-25-2023 End: 11-25-2023 betamethasone acetate-betame thasone sodium phosphate 6 mg injection (CELESTONE) Start: 08-19-2023 End: 08-19-2023 betamethasone acetate-betame thasone sodium phosphate 6 mg injection (CELESTONE) Start: 02-04-2023 End: 02-04-2023 betamethasone acetate-betame thasone sodium phosphate 6 mg injection (CELESTONE) Start: 10-29-2022 End: 10-29-2022 betamethasone acetate-betame thasone sodium phosphate 6 mg injection (CELESTONE) Start: 07-16-2022 End: 07-16-2022 betamethasone acetate-betame thasone sodium phosphate 6 mg injection (CELESTONE) Start: 07-16-2022 End: 07-16-2022 betamethasone acetate-betame thasone sodium phosphate 6 mg injection (CELESTONE) Start: 03-12-2022 End: 03-12-2022 betamethasone acetate-betame thasone sodium phosphate 6 mg injection (CELESTONE) Start: 03-12-2022 End: 03-12-2022 betamethasone acetate-betame thasone sodium phosphate 6 mg injection (CELESTONE) Start: 12-18-2021 End: 12-18-2021 betamethasone acetate-betame thasone sodium phosphate 6 mg injection (CELESTONE) Start: 12-18-2021 End: 12-18-2021 betamethasone acetate-betame thasone sodium phosphate 6 mg injection (CELESTONE) biotin (4 sources) Start: 02-15-2015 End: 01-23-2016 take 1 tablet by mouth once daily BIOTIN FORTE TABS One tablet by mouth daily BIOTIN TABS [id number] Jeremy Mchugh MD Start: 02-15-2015 take 1 tablet by abe th once daily BIOTIN FORTE TABS One tablet by mouth daily BIOTIN TABS [id number] Jeremy Mchugh MD 24 hr dilTIAZem hydrochloride 180 mg extended release oral capsule (20 sources) Calcium Channel Mary Beth Start: 01-03-2018 End: 04-28-2024 take 1 capsule by mouth once daily, then take 1 capsule by mouth every twenty-four hours Diltiazem Hcl (Cartia Xt) 180 mg capsule,extended release 24hr Discontinued 180 mg PO DAILY 90 4 August 06, 2023 9:13am March 17, 2024 2:07pm heart rate Start: 01-03-2018 CARTIA XT 180 mg 24 hr capsule 01/03/2018 Active Start: 01-07-2013 take 1 tablet by abe th once daily CARDIZEM CD 180 MG [id number] One tablet by mouth daily DILTIAZEM HCL COATED BEADS [id number] Jeremy Mchugh MD Start: 11-22-2011 take 1 tablet by abe th twice daily CARDIZEM CD 180 MG [id number] One tablet by mouth twice daily DILTIAZEM HCL COATED BEADS [id number] Demetrice Greer PA-C Start: 11-15-2011 take 1 tablet by abe th once daily CARDIZEM CD 240 MG [id number] One tablet by mouth daily DILTIAZEM HCL COATED BEADS [id number] Aixa Sue, RN hydrALAZINE hydrochloride 50 mg oral tablet (20 sources) Arteriolar Vasodilator Start: 12-27-2023 End: 05-31-2025 take 1 tablet by mouth three times daily Hydralazine 50 mg tablet Discontinued 50 mg PO THREE TIMES A DAY January 09, 2024 12:00am June 24, 2024 12:16pm Start: 12-23-2023 End: 12-27-2023 take 2 tablets by mouth three times daily hydrALAZINE (APRESOLINE) 25 mg tablet Take 50 mg by mouth three times a day. 12/23/2023 12/27/2023 Discontinued (Changing Therapy/Dosage Form) Start: 12-23-2023 End: 01-09-2024 take 1 tablet by mouth three times daily hydrALAZINE (APRESOLINE) 25 mg tablet Take 25 mg by mouth three times a day. 12/23/2023 Active hydroCHLOROthiazide 12.5 mg / losartan potassium 50 mg oral tablet (4 sources) Thiazide Diuretic, Angiotensin 2 Receptor Mary Beth Start: 11-15-2011 End: 02-26-2012 take 1 tablet by mouth once daily HYZAAR 50-12.5 MG TABS One tablet by mouth daily LOSARTAN POTASSIUM-HCTZ [id number] Aixa Sue, RN levoFLOXacin 750 mg oral tablet (1 source) Quinolone Antimicrobial Start: 11-06-2017 End: 02-06-2018 take 1 tablet by mouth once daily Levofloxacin 750 MG tablet Discontinued 750 mg PO DAILY 4 0 November 06, 2017 12:00am February 06, 2018 8:55am 10 ml lidocaine hydrochloride 10 mg/ml injection (20 sources) Antiarrhythmic, Amide Local Anesthetic Start: 12-28-2024 End: 12-28-2024 lidocaine (PF) 10 mg/mL (1 %) 5 mL injection (XYLOCAINE) Start: 12-28-2024 End: 12-28-2024 5 mL, Injection - FOR ORTHO USE ONLY, ONCE, 1 dose, Starting on Sat12/28/24 at 0839, Until Sat12/28/24 at 0839 Start: 09-21-2024 End: 09-21-2024 lidocaine (PF) 10 mg/mL (1 % ) 5 mL injection (XYLOCAINE) Start: 09-21-2024 End: 09-21-2024 5 mL, Injection - FOR ORTHO USE ONLY, ONCE, 1 dose, Starting on Sat09/21/24 at 0910, Until Sat09/21/24 at 0910 Start: 06-08-2024 End: 06-08-2024 lidocaine (PF) 10 mg/mL (1 % ) 5 mL injection (XYLOCAINE) Start: 06-08-2024 End: 06-08-2024 5 mL, Injection - FOR ORTHO USE ONLY, ONCE, 1 dose, Starting on Sat06/08/24 at 0832, Until Sat06/08/24 at 0832 Start: 03-02-2024 End: 03-02-2024 lidocaine (PF) 10 mg/mL (1 % ) 5 mL injection (XYLOCAINE) Start: 03-02-2024 End: 03-02-2024 5 mL, Injection - FOR ORTHO USE ONLY, ONCE, 1 dose, Starting on Sat03/02/24 at 0926, Until Sat03/02/24 at 0926 Start: 11-25-2023 End: 11-25-2023 lidocaine (PF) 10 mg/mL (1 % ) 5 mL injection (XYLOCAINE) Start: 08-19-2023 End: 08-19-2023 lidocaine (PF) 10 mg/mL (1 % ) 5 mL injection (XYLOCAINE) Start: 02-04-2023 End: 02-04-2023 lidocaine (PF) 10 mg/mL (1 % ) 5 mL injection (XYLOCAINE) Start: 10-29-2022 End: 10-29-2022 lidocaine (PF) 10 mg/mL (1 % ) 5 mL injection (XYLOCAINE) Start: 07-16-2022 End: 07-16-2022 lidocaine (PF) 10 mg/mL (1 % ) 5 mL injection (XYLOCAINE) Start: 07-16-2022 End: 07-16-2022 lidocaine (PF) 10 mg/mL (1 % ) 5 mL injection (XYLOCAINE) Start: 03-12-2022 End: 03-12-2022 lidocaine (PF) 10 mg/mL (1 % ) 5 mL injection (XYLOCAINE) Start: 03-12-2022 End: 03-12-2022 lidocaine (PF) 10 mg/mL (1 % ) 5 mL injection (XYLOCAINE) Start: 12-18-2021 End: 12-18-2021 lidocaine (PF) 10 mg/mL (1 % ) 5 mL injection (XYLOCAINE) Start: 12-18-2021 End: 12-18-2021 lidocaine (PF) 10 mg/mL (1 % ) 5 mL injection (XYLOCAINE) 24 hr metoprolol succinate 50 mg extended release oral tablet (20 sources) beta-Adrenergic Mary Beth Start: 04-28-2024 End: 05-26-2024 take 2 tablets by mouth twice daily metoprolol succinate ER (TOPROL XL) 25 mg 24 hr tablet Take 2 tablets by mouth two times a day. 04/28/2024 05/26/2024 Discontinued Start: 03-23-2024 End: 12-02-2024 take 1 tablet by mouth twice daily Metoprolol Succinate 50 mg tablet extended release 24 hr Discontinued 50 mg PO TWICE A DAY 180 3 October 14, 2024 7:54am October 16, 2024 11:39am blood pressure This is a dose increase Start: 02-06-2018 End: 03-23-2024 take 1 tablet by mouth once daily Metoprolol Succinate 50 mg tablet extended release 24 hr Discontinued 0 .ROUTE .COMPLEX 90 3 August 06, 2023 9:14am March 23, 2024 10:55am blood pressure TAKE 1 TABLET BY MOUTH ONCE DAILY Start: 02-06-2018 End: 02-06-2018 take 1 capsule by mouth once daily Metoprolol Succinate 25 mg capsule,sprinkle,ER 24hr Discontinued 25 mg PO DAILY February 06, 2018 12:00am February 06, 2018 9:38am Start: 02-01-2018 End: 04-28-2024 take 1 tablet by mouth once daily metoprolol succinate ER (TOPROL XL) 25 mg 24 hr tablet Take 50 mg by mouth once daily. 02/01/2018 04/28/2024 Discontinued Start: 11-15-2011 take 1 tablet by abe th once daily TOPROL XL 25 MG [id number] One tablet by mouth daily METOPROLOL SUCCINATE [id number] Jeremy Mchugh MD Comment on above: Take 50 mg by mouth once daily. POTASSIUM CHLORIDE GILBERTO CR (4 sources) Start: 02-26-2012 take 1 tablet by mouth once daily KLOR-CON M20 20 MEQ CR-TABS One tablet by mouth daily POTASSIUM CHLORIDE GILBERTO CR [id number] Jeremy Mchugh MD Start: 02-26-2012 End: 07-11-2012 take 1 tablet by mouth once daily KLOR-CON M20 20 MEQ CR-TABS One tablet by mouth daily POTASSIUM CHLORIDE GILBERTO CR [id number] Ira Mosley RN Problems Active Problems Problem Classification Problem Date Documented Date Episodic/Chronic Acute bronchitis (1 source) Acute bronchitis; Translations: [Acute bronchitis, unspecified] 01-24-2024 Episodic Anxiety disorders (20 sources) Anxiety; Translations: [Anxiety disorder, unspecified] Onset: 02-15-2018 Chronic Bacterial infection; unspecified site (1 source) Other specified bacterial agents as the cause of diseases classified elsewhere; Translations: [Bacterial sinusitis] Onset: 12-02-2024 Episodic Cardiac dysrhythmias (20 sources) Paroxysmal atrial fibrillation; Translations: [Atrial fibrillation] Onset: 11-15-2011 01-23-2016 Chronic Chronic kidney disease (20 sources) Chronic kidney disease stage 3A ; Translations: [Stage 3a chronic kidney disease (HCC)] Onset: 03-08-2021 Resolved: 12-02-2024 Chronic Chronic kidney disease (1 source) Chronic kidney disease; Translations: [Stage 3a chronic kidney disease (HCC)] Onset: 03-08-2021 Conduction disorders (20 sources) Left bundle branch block; Translations: [Left bundle-branch block, unspecified] Onset: 11-21-2018 11-21-2018 Chronic Diseases of white blood cells (1 source) Leukocytosis; Translations: [Elevated white blood cell count, unspecified] Chronic E Codes: Adverse effects of medical drugs (1 source) Adverse reaction to drug; Translations: [Adverse effect of unspecified drugs, medicaments and biological substances, initial encounter] 12-28-2023 Episodic E Codes: Fall (1 source) Fall; Translations: [Unspecified fall, initial encounter] 12-26-2023 Episodic Essential hypertension (20 sources) Hypertensive disorder; Translations: [Essential hypertension] Onset: 11-15-2011 11-15-2011 Chronic Fluid and electrolyte disorders (4 sources) Hypokalemia; Translations: [Hyponatremia] Onset: 11-15-2011 11-15-2011 Episodic Malaise and fatigue (1 source) Fatigue; Translations: [Chronic fatigue, unspecified] 01-24-2024 Chronic Malaise and fatigue (2 sources) Fatigue; Translations: [Other fatigue] Onset: 12-02-2024 12-02-2024 Episodic Osteoarthritis (13 sources) Primary gonarthrosis, bilateral; Translations: [Bilateral primary osteoarthritis of knee] Chronic Other aftercare (20 sources) Long-term current use of anticoagulant; Translations: [jail (current) use of anticoagulants] Onset: 02-15-2018 Episodic Other and ill-defined heart disease (4 sources) Heart disease; Translations: [Other ill-defined heart diseases] Onset: 11-23-2011 Resolved: 01-20-2016 01-20-2016 Chronic Other diseases of kidney and ureters (1 source) Renal impairment; Translations: [Disorder of kidney and ureter, unspecified] 12-10-2024 Episodic Other diseases of kidney and ureters (1 source) Disorder of kidney and ureter, unspecified; Translations: [Renal insufficiency] Onset: 12-18-2024 Episodic Other nutritional; endocrine; and metabolic disorders (1 source) Disorder of iron metabolism; 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, unspecified] 01-24-2024 Chronic Other nutritional; endocrine; and metabolic disorders (1 source) Obesity; Translations: [Obesity, unspecified] 12-28-2023 Chronic Other screening for suspected conditions (not mental disorders or infectious disease) (12 sources) Patient encounter status; Translations: [Encounter for screening mammogram for malignant neoplasm of breast] Onset: 04-03-2022 Episodic Other upper respiratory disease (2 sources) Bleeding from nose; Translations: [Epistaxis] 12-27-2023 Episodic Other upper respiratory infections (7 sources) Bacterial sinusitis; Translations: [Chronic sinusitis, unspecified] Onset: 12-02-2024 Chronic Thyroid disorders (3 sources) Acquired hypothyroidism; Translations: [Hypothyroidism, unspecified] Onset: 12-18-2024 12-10-2024 Chronic Unclassified (4 sources) Body mass index (BMI) 31.0-31.9, adult; Translations: [Body mass index (BMI) 30.0-30.9, adult] Onset: 08-11-2013 02-05-2017 Chronic Unclassified (1 source) Patient encounter status 04-10-2024 Unclassified (1 source) Injections Onset: 09-21-2024 Past or Other Problems Problem Classification Problem Date Documented Da te Episodic/Chronic Other aftercare (1 source) manager terminal (current) use of anticoagulants; Translations: [Chronic anticoagulation] Onset: 02-15-2018 Episodic Other circulatory disease (1 source) Elevated blood-pressure reading, without diagnosis of hypertension; Translations: [Elevated blood-pressure reading, without diagnosis of hypertension] Onset: 04-10-2024 Episodic Other non-traumatic joint disorders (20 sources) Pain in right knee; Translations: [Pain in joint, lower leg] Onset: 12-03-2018 Episodic Other non-traumatic joint disorders (1 source) Pain in left knee; Translations: [Acute pain of both knees] Onset: 12-03-2018 Episodic Other upper respiratory infections (2 sources) Acute recurrent maxillary sinusitis; Translations: [Acute maxillary sinusitis] Onset: 05-26-2024 05-26-2024 Episodic Screening and history of mental health and substance abuse codes (1 source) Encounter for screening for depression; Translations: [Screening for depression] Onset: 04-28-2024 Episodic Unclassified (2 sources) Family history of stroke; Translations: [Family history of stroke] 02-16-2014 Episodic Results Test Name Value Interpretation Reference Range Facility T4 Free SerPl-mCncon 025 Free T4 [Mass/Vol] 1.4 ng/dL Normal 0.9-1.7 [facility] Comment on above: Order Comment: Speci men Type: BLOOD SPECIMENOrdering Facility: [facility] Address: [address] [place] [address] Performed By: #### 3 016-3, 3024-7 ####[facility] LABCLIA [id number] [place] [address] [place] TSH SerPl-aCncon 02-11-2025 TSH Qn 4.250 m[IU]/L High 0.270-4.200 [facility] Comment on above: Order Comment: Speci men Type: BLOOD SPECIMENOrdering Facility: [facility] Address: [address] [place] [address] Performed By: #### 3 016-3, 3024-7 ####[facility] LABCLIA [id number] [place] [address] [place] Cardiology Visit Reporton Cardiology Visit Report [facility] [address] [place], [place] [address] OFFICE VISIT Date of Service: 01/08/25 MR#: [id number] Acct: [id number] Name: TRICIA GRANADOS Rep #: [id number] : 1940 Provider: SAMANTHA Pendleton Age/Sex: 84/F Location[place] [facility] Status: Signed HPI HPI History of Present Illness Details: Tricia Granados is an 84 year-old lady with a history of hypertension paroxysmal atrial fibrillation who returns for follow-up visit. From a cardiac standpoint, patient is doing well. She does not have any chest discomfort/heaviness/ti ghtness. She does not have any worsening symptoms of shortness of breath. She does not have any orthopnea. She denies PND. She does not have any symptoms of congestive heart failure. She does not have any palpitations that she is aware of. She does not have any lightheadedness or dizziness. She does not have any near-syncope or syncope. She does not have any lower extremity edema. She does not have any symptoms of claudication. Her BP log at home demonstrated its is controlled. She has lost 30lbs over the last year. She has changed her eating habits. She is less fatigued. Intake Vital Signs 07/10/24 07:43 01/08/25 10:06 01/08/25 10:09 Height 5 ft 6 in 5 ft 6 in 5 ft 6 in Weight: 196 lb 185 lb BMI 31.6 29.8 BP 168/78 H 152/69 H 136/50 H Blood Pressure Location Lt brachial Lt brachial Position Sitting Sitting Respiration 18 18 Pulse 76 62 Pulse Source Monitor Monitor Pulse Oximetry (%) 99 97 Intake Visit Reasons: 6 M FU Cad Librarian Required: No Is patient in pain?: No Allergies caffeine Adverse Reaction (Verified 01/08/25 10:06) Other Medications ???Medication ???Instructions ???Recorded ???Confirmed ???Type hydralazine 50 mg tablet 50 mg PO TID 90 days #270 tabs 09/1301/08/25 Rx Eliquis 5 mg tablet (apixaban) 5 mg PO BID #60 TABLETS 08/19/24 0 01/08/25 Rx amlodipine 10 mg tablet 10 mg PO DAILY #90 TABLETS 5 01/08/25 Rx metoprolol succinate 50 mg 50 mg PO BID blood pressure This 0 10/16/24 01/08/25 Rx tablet,extended release 24 hr is a dose increase #180 tabs losartan 100 mg tablet See Rx Instructions .Route 5 01/08/25 Rx .COMPLEX blood pressure #90 tabs levothyroxine 25 mcg tablet 25 mcg PO QDAY 01/08/25 01/08/25 H istory (Synthroid) Ejection fraction %: 65 Have you fallen in the past year?: No PFSH Medical History Paroxysmal A-fib Chronic anticoagulation Longstanding persistent atrial fibrillation Left bundle branch block (LBBB) Obesity Paroxysmal atrial fibrillation Essential (primary) hypertension Transient global amnesia Anxiety disorder Surgical History Hx of appendectomy H/O oophorectomy History of cholecystectomy H/O: hysterectomy Family History Father CVA (cerebral vascular accident) Mother Hypertension Heart disease CHF (congestive heart failure) Social History Smoking Status: Former smoker how long ago did patient quit smokin years age alcohol intake: never caffeine: No ROS Const Const: Negative for fatigue, weakness, headache(s) or frequent falls Eyes Eyes: Negative for blurry vision ENT ENT: Negative for headache(s), dizziness or Nosebleed/epistaxis Cardio Chest Pain: No Palpitations: No Edema: Bilateral and None Muscle aches with walking: None Resp Respiratory: Negative for SOB with activity, SOB at rest or SOB orthopnea SOB lying down GI GI: Negative nausea, vomiting, heartburn, bright, red blood in stools or black,tarry stools : Negative for hematuria Neuro Neuro: Negative for dizziness, lightheadedness, near syncope, syncope, frequent falls, headache(s), weakness or blurry vision Endo Endo: Negative for fatigue Cardiology Exam Const Appearance: cooperative, no acute distress and well developed Orientation: alert, awake and oriented x3 Head Head: normal to inspection Ears: hearing grossly normal bilaterally Nose: external nose normal Face and Sinus: face symmetric Mouth: oral mucosae normal, lip normal and moist mucous membranes Eyes General: appearance normal, both eyes and all related structures Eyelids: eyelids normal Conjunctivae: conjunctivae normal Pupils: PERRL EOM: EOM intact bilaterally Neck Neck: normal visual inspection and trachea midline; Negative no JVD Carotids: Negative bruit Chest Chest inspection: normal inspection of the chest Auscultation: Bilateral: Clear to Auscultation Cardio Palpation: normal PMI Rate: regular rate Rh (more content not included)... Normal [facility] Basic metabolic 2000 panelon 01-05-2025 Anion gap [Moles/Vol] 11 mmol/L Normal 8-15 [facility] Comment on above: Order Comment: Speci men Type: BLOOD SPECIMENOrdering Facility: [facility] Address: [address] [place] [address] Performed By: #### 1 91239, 32366-8 ####[facility] LABCLIA [id number] [place] [address] [place] Calcium [Mass/Vol] 9.2 mg/dL Normal 8.5-10.2 [facility] Comment on above: Order Comment: Speci anh Type: BLOOD SPECIMENOrdering Facility: [facility] Address: [address] [place] [address] Performed By: #### 1 91239, 17163-4 ####[facility] LABCLIA [id number] [place] [address] [place] Chloride [Moles/Vol] 106 mmol/L Normal 98-107 [facility] Comment on above: Order Comment: Ieshai men Type: BLOOD SPECIMENOrdering Facility: [facility] Address: [address] [place] [address] Performed By: #### 1 91239, 25466-9 ####[facility] LABCLIA [id number] [place] [id number] [place] CO2 [Moles/Vol] 21 mmol/L Low 22-30 [facility] Comment on above: Order Comment: Speci men Type: BLOOD SPECIMENOrdering Facility: [facility] Address: [address] [place] [address] Performed By: #### 1 9123-9, 25170-5 ####[facility] LABIA [id number] [place] [id number] [place] Creatinine [Mass/Vol] 1.04 mg/dL High 0.58-0.96 [facility] Comment on above: Order Comment: Speci men Type: BLOOD SPECIMENOrdering Facility: [facility] Address: [address] [place] [address] Performed By: #### 1 9123-9, 22846-7 ####[facility] LABIA [id number] [place] [address] [place] eGFRcr SerPlBld CKD-EPI 2020 53 mL/min/1.73m??? Low >=60 [facility] Comment on above: Order Comment: Speci men Type: BLOOD SPECIMENOrdering Facility: [facility] Address: [address] [place] [address] Result Comment: Lilo mated Glomerular Filtration Rate (eGFR) is calculated using the 2020 CKD-EPI creatinine equation. This equation utilizes serum creatinine, sex, and age as parameters. The creatinine assay has traceable calibration to isotope dilution-mass spectrometry. Refer to KDIGO guidelines for clinical interpretation. In patients with unstable renal function, e.g. those with acute kidney injury, the eGFR may not accurately reflect actual GFR. Performed By: #### 1 9123-9, 39862-9 ####[facility] LABIA [id number] [place] [id number] [place] Glucose [Mass/Vol] 92 mg/dL Normal 74-99 [facility] Comment on above: Order Comment: Speci men Type: BLOOD SPECIMENOrdering Facility: [facility] Address: [address] [place] [address] Result Comment: The [place] Diabetes [employer] (ADA) provides guidance for cutoff values for fasting glucose and random glucose. The ADA defines fasting as no caloric intake for at least 8 hours. Fasting plasma glucose results between 100 to 125 mg/dL indicate increased risk for diabetes (prediabetes). Fasting plasma glucose results greater than or equal to 126 mg/dL meet the criteria for diagnosis of diabetes. In the absence of unequivocal hyperglycemia, results should be confirmed by repeat testing. In a patient with classic symptoms of hyperglycemia or hyperglycemic crisis, random plasma glucose results greater than or equal to 200 mg/dL meet the criteria for diagnosis of diabetes. Reference: Standards of Medical Care in Diabetes 2016, [place] [employer]. Diabetes Care. 2016.39(Suppl 1). Performed By: #### 1 9123-9, 21543-9 ####[facility] LABCLIA [id number] [place] [address] [place] Potassium [Moles/Vol] 4.4 mmol/L Normal 3.7-5.1 [facility] Comment on above: Order Comment: Speci men Type: BLOOD SPECIMENOrdering Facility: [facility] Address: [address] [place] [address] Performed By: #### 1 9123-9, 48656-0 ####[facility] LABIA [id number] [place] [id number] [place] Sodium [Moles/Vol] 138 mmol/L Normal 136-144 [facility] Comment on above: Order Comment: Speci men Type: BLOOD SPECIMENOrdering Facility: [facility] Address: [address] [place] [address] Performed By: #### 1 9123-9, 01499-8 ####[facility] LABIA [id number] [place] [id number] [place] Urea nitrogen [Mass/Vol] 16 mg/dL Normal 7-21 [facility] Comment on above: Order Comment: Speci men Type: BLOOD SPECIMENOrdering Facility: [facility] Address: [address] [place] [id number] Performed By: #### 1 9123-9, 59278-5 ####[facility] LABIA [id number] [place] [address] [place] Magnesium SerPl-mCncon 01-05 Magnesium [Mass/Vol] 2.1 mg/dL Normal 1.7-2.3 [facility] Comment on above: Order Comment: Speci men Type: BLOOD SPECIMENOrdering Facility: [facility] Address: [address] [place] [address] Performed By: #### 1 9123-9, 71201-2 ####[facility] LABIA [id number] [place] [address] [place] CNOVon 12-28-2024 CNOV Office Visit (ORTHWS ) TRICIA GRANADOS ([id number]) 1940 F Date Time Provider Department 12/28/24 8:30 AM BREANNA CANSECO During your visit today, we recorded the following information about you: Carmelita Tran MA 12/28/2024 8:40 AM Signed Patient presents with: Left Knee - Follow Up, Knee Pain Right Knee - Follow Up, Knee Pain: 14 weeks post visit OA Bilateral knees with injections given Wants injections AMB ROOMING INTAKE FLOWSHEET DATA Pain Pain Location: Knee-Left Description: Sharp Duration Amount of Time: (Ongoing) Frequency: Intermittent (Occurs with certain movements) Intervention/Comfort measure: (none) Taking no med's for the pain. Here for injections bilateral knees. Breanna Canseco PA-C 12/28/2024 8:40 AM Signed Large Joint Arthro/Inj: bilateral knee joints 12/28/2024 8:39 AM The procedure site was prepped in the usual sterile fashion. Site: bilateral knee joints Medications (Right): 6 mg betamethasone acetate-betamethasone sodium phosphate 6 mg/mL Medications (Left): 6 mg betamethasone acetate-betamethasone sodium phosphate 6 mg/mL Anesthetics (Right): 5 mL lidocaine (PF) 10 mg/mL (1 %) Anesthetics (Left): 5 mL lidocaine (PF) 10 mg/mL (1 %) Outcome: Tolerated well, no immediate complications Post-injection instructions were reviewed with the patient and the patient voiced understanding of these instructions. Informed Consent Consent Obtained: Verbal [place] Protocol A moment to CARE was completed. SIGN IN Sign in communication not applicable due to emergent procedure. Personnel directly involved with the procedure wore the appropriate PPE. Special Equipment: N/A Patient/Surrogate Stated/Verified: Patient name, Date of , Relevant allergies and Intended procedure TIME OUT Relevant labs, photos, and/or imaging studies have been reviewed. Consent documented and matches the intended procedure. Correct side/site marked and visible. Medications required for procedure verified. No fire risk assessment and interventions applicable. No implant(s) inserted. SIGN OUT No specimen collected. No post-procedure POC communication to the patient's multidisciplinary team (including the bedside nurse for hospitalized patients) applicable. 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 - hydrALAZINE (APRESOLINE) 50 mg tablet Take 1 tablet by mouth three times a day. For blood pressure - metoprolol succinate ER (TOPROL XL) 50 mg 24 hr tablet Take 1 tablet by mouth two times a day. - amLODIPine (NORVASC) 10 mg tablet Take 1 tablet by mouth every afternoon. - losartan (COZAAR) 100 mg tablet Take 1 tablet by mouth once daily. - apixaban (ELIQUIS) 5 mg tab(s) Take 5 mg by mouth two times a day. Problem List As Of Date 12/28/2024 Noted Resolved Paroxysmal atrial fibrillation (HCC) [I48.0] 02/06/2018 Hypertension [I10] 11/15/2011 Chronic anticoagulation [Z79.01] 02/15/2018 Anxiety [F41.9] 02/15/2018 LBBB (left bundle branch block) [I44.7] 11/21/2018 Pain in both knees [M25.561, M25.562] 12/03/2018 CKD (chronic kidney disease) stage 3, GFR 30-59*03/08/2021 12/02/2024 Bacterial sinusitis [J32.9, B96.89] 12/02/2024 Prescriptions ordered this encounter Disp Refills Start End BETAMETHASONE ACETATE AND SODIUM KJ* 12/28/2024 12/28/2024 Route: Inj-ORTHO BETAMETHASONE ACETATE AND SODIUM KJ* 12/28/2024 12/28/2024 Route: Inj-ORTHO LIDOCAINE (PF) 10 MG/ML (1 %) INJECT* 12/28/2024 12/28/2024 Route: Inj-ORTHO LIDOCAINE (PF) 10 MG/ML (1 %) INJECT* 12/28/2024 12/28/2024 Route: Inj-ORTHO Encounter Status:Closed by BREANNA CANSECO on 12/28/24 Normal [facility] Large Joint Arthro/Inj: bila teral knee jointson 12-28-2024 Breanna Canseco PA -C 12/28/2024 8:40 AM Large Joint Arthro/Inj: bilateral knee joints 12/28/2024 8:39 AM The procedure site was prepped in the usual sterile fashion. Site: bilateral knee joints Medications (Right): 6 mg betamethasone acetate-betamethasone sodium phosphate 6 mg/mL Medications (Left): 6 mg betamethasone acetate-betamethasone sodium phosphate 6 mg/mL Anesthetics (Right): 5 mL lidocaine (PF) 10 mg/mL (1 %) Anesthetics (Left): 5 mL lidocaine (PF) 10 mg/mL (1 %) Outcome: Tolerated well, no immediate complications Post-injection instructions were reviewed with the patient and the patient voiced understanding of these instructions. Informed Consent Consent Obtained: Verbal [place] Protocol A moment to CARE was completed. SIGN IN Sign in communication not applicable due to emergent procedure. Personnel directly involved with the procedure wore the appropriate PPE. Special Equipment: N/A Patient/Surrogate Stated/Verified: Patient name, Date of , Relevant allergies and Intended procedure TIME OUT Relevant labs, photos, and/or imaging studies have been reviewed. Consent documented and matches the intended procedure. Correct side/site marked and visible. Medications required for procedure verified. No fire risk assessment and interventions applicable. No implant(s) inserted. SIGN OUT No specimen collected. No post-procedure POC communication to the patient's multidisciplinary team (including the bedside nurse for hospitalized patients) applicable. [facility] Basic metabolic 2000 panelon 12-18-2024 Anion gap [Moles/Vol] 13 mmol/L Normal 8-15 [facility] Comment on above: Order Comment: Tessa kamara Type: BLOOD SPECIMENOrdering Facility: [facility] Address: [address] [place] [address] Performed By: #### T 4FTI, 3053-6, 21766-5 ####[facility] LABCLIA [id number] [place] [address] [place] Calcium [Mass/Vol] 9.5 mg/dL Normal 8.5-10.2 [facility] Comment on above: Order Comment: Tessa kamara Type: BLOOD SPECIMENOrdering Facility: [facility] Address: [address] [place] [address] Performed By: #### T 4FTI, 305-6, 80865-9 ####[facility] LABCLIA [id number] [address] [address] [place] Chloride [Moles/Vol] 100 mmol/L Normal 98-107 [facility] Comment on above: Order Comment: Speci men Type: BLOOD SPECIMENOrdering Facility: [facility] Address: [address] [place] [address] Performed By: #### T 4FTI, 30506-25, 97865-7 ####[facility] LABCLIA [id number] [place] [id number] [place] CO2 [Moles/Vol] 18 mmol/L Low 22-30 [facility] Comment on above: Order Comment: Speci men Type: BLOOD SPECIMENOrdering Facility: [facility] Address: [address] [place] [address] Performed By: #### T 4FTI, 305-, 07957-8 ####[facility] LABIA [id number] [place] [id number] [place] Creatinine [Mass/Vol] 1.08 mg/dL High 0.58-0.96 [facility] Comment on above: Order Comment: Speci men Type: BLOOD SPECIMENOrdering Facility: [facility] Address: [address] [place] [address] Performed By: #### T 4FTI, 30506-25, 11367-9 ####[facility] LABIA [id number] [address] [address] [place] eGFRcr SerPlBld CKD-EPI 2020 51 mL/min/1.73m??? Low >=60 [facility] Comment on above: Order Comment: Speci men Type: BLOOD SPECIMENOrdering Facility: [facility] Address: [address] [place] [address] Result Comment: Lilo mated Glomerular Filtration Rate (eGFR) is calculated using the 2020 CKD-EPI creatinine equation. This equation utilizes serum creatinine, sex, and age as parameters. The creatinine assay has traceable calibration to isotope dilution-mass spectrometry. Refer to KDIGO guidelines for clinical interpretation. In patients with unstable renal function, e.g. those with acute kidney injury, the eGFR may not accurately reflect actual GFR. Performed By: #### T 4FLAURA, 3052-, 52211-3 ####[facility] LABCLIA [id number] [place] [id number] [place] Glucose [Mass/Vol] 102 mg/dL High 74-99 [facility] Comment on above: Order Comment: Speci men Type: BLOOD SPECIMENOrdering Facility: [facility] Address: [address] [place] [address] Result Comment: The [place] Diabetes Association (ADA) provides guidance for cutoff values for fasting glucose and random glucose. The ADA defines fasting as no caloric intake for at least 8 hours. Fasting plasma glucose results between 100 to 125 mg/dL indicate increased risk for diabetes (prediabetes). Fasting plasma glucose results greater than or equal to 126 mg/dL meet the criteria for diagnosis of diabetes. In the absence of unequivocal hyperglycemia, results should be confirmed by repeat testing. In a patient with classic symptoms of hyperglycemia or hyperglycemic crisis, random plasma glucose results greater than or equal to 200 mg/dL meet the criteria for diagnosis of diabetes. Reference: Standards of Medical Care in Diabetes 2016, [place] [employer]. Diabetes Care. 2016.39(Suppl 1). Performed By: #### T 4FLAURA, 3052-09, 82449-8 ####[facility] LABIA [id number] [place] [id number] [place] Potassium [Moles/Vol] 4.2 mmol/L Normal 3.7-5.1 [facility] Comment on above: Order Comment: Tessa kamara Type: BLOOD SPECIMENOrdering Facility: [facility] Address: [address] [place] [address] Performed By: #### T 4FLAURA, 3052-09, 22318-2 ####[facility] LABIA [id number] [address] [place] [address] [place] Sodium [Moles/Vol] 131 mmol/L Low 136-144 [facility] Comment on above: Order Comment: Speci men Type: BLOOD SPECIMENOrdering Facility: [facility] Address: [address] [place] [address] Performed By: #### T 4FLAURA, 3056, 18435-8 ####[facility] LABCLIA [id number] [address], [place] [address] [place] Urea nitrogen [Mass/Vol] 11 mg/dL Normal 7-21 [facility] Comment on above: Order Comment: Speci men Type: BLOOD SPECIMENOrdering Facility: [facility] Address: [address] [place] [address] Performed By: #### T 4FLAURA, 3052-09, 07831-6 ####[facility] LABCLIA [id number] [address], [address] STATES OF [facility] T3 SerPl-mCncon 12-18-2024 T3 [Mass/Vol] 122 ng/dL Normal 79-165 [facility] Comment on above: Order Comment: Speci men Type: BLOOD SPECIMENOrdering Facility: [facility] Address: [address] [place] [address] Performed By: #### T 4FLAURA, 3052-09, 00281-4 ####[facility] LABCLIA [id number] [address], [facility] [place] T4/FTI/T4Uon 12-18-2024 FTI 8.9 ug/dL Normal 5.3-10.8 [facility] Comment on above: Order Comment: Speci men Type: BLOOD SPECIMENOrdering Facility: [facility] Address: [address] [place] [address] Performed By: #### T 4FLAURA, 3052-09, 17806-8 ####[facility] LABCLIA [id number] [address], [facility] [place] T4 [Mass/Vol] 7.6 ug/dL Normal 5.5-10.2 [facility] Comment on above: Order Comment: Speci men Type: BLOOD SPECIMENOrdering Facility: [facility] Address: [address] [place] [address] Performed By: #### T 4FTI, 3053-6, 51375-8 ####[facility] LABCLIA [id number] [address] OF [facility] T4 uptake [Mass/Vol] 0.85 Low 0.91-1.19 [facility] Comment on above: Order Comment: Speci men Type: BLOOD SPECIMENOrdering Facility: [facility] Address: [address] [place] [address] Performed By: #### T 4FTI, 3053-6, 20801-6 ####[facility] LABCLIA [id number] [place] [address] [place] TSH SerPl-aCncon 12-18-2024 TSH Qn 5.320 m[IU]/L High 0.270-4.200 [facility] Comment on above: Order Comment: Speci men Type: BLOOD SPECIMENOrdering Facility: [facility] Address: [address] [place] [address] Performed By: #### 3 016-3 ####[facility] LABCLIA [id number] [place] [address] [place] [facility] TRICIA GRANADOS ([id number]) 1940 F Date Time Provider Department 12/10/24 ROSALINO CARMONA [facility] During your visit today, we recorded the following information about you: Rosalino Carmona MD 12/10/2024 9:39 AM Signed Labs are ok except renal function is slightly low. Thyroids is borderline. Push fluids and recheck labs in two weeks. Gregoria Anderson RN 12/10/2024 5:52 PM Signed Pt called and is notified of providers results and instructions. Pt voices understanding. Gregoria Anderson RN Allergies As of Date: 12/10/2024 Noted Allergy Reaction CAFFEINE 02/16/2014 5 - Intolerance Date Reviewed: 12/02/2024 Reviewed by: Trish Pendleton - Fully Assessed Reason for Visit: Results [95] Primary Visit Diagnosis:Renal insufficiency [N28.9] Other Visit Diagnosis:Hypothyroidis m, acquired [E03.9] Order(s):BASIC METABOLIC PANEL [SQBMP] Order #: [id number] FUTURE THYROID STIMULATING HORMONE [SQTSH] Order #: [id number] FUTURE T4/FTI/T4U [CCX3POM] Order #: [id number] FUTURE T3 [SQT3] Order #: [id number] FUTURE Prescriptions as of 12/10/2024 - hydrALAZINE (APRESOLINE) 50 mg tablet Take 1 tablet by mouth three times a day. For blood pressure - metoprolol succinate ER (TOPROL XL) 50 mg 24 hr tablet Take 1 tablet by mouth two times a day. - amLODIPine (NORVASC) 10 mg tablet Take 1 tablet by mouth every afternoon. - losartan (COZAAR) 100 mg tablet Take 1 tablet by mouth once daily. - apixaban (ELIQUIS) 5 mg tab(s) Take 5 mg by mouth two times a day. Problem List As Of Date 12/10/2024 Noted Resolved Paroxysmal atrial fibrillation (HCC) [I48.0] 02/06/2018 Hypertension [I10] 11/15/2011 Chronic anticoagulation [Z79.01] 02/15/2018 Anxiety [F41.9] 02/15/2018 LBBB (left bundle branch block) [I44.7] 11/21/2018 Pain in both knees [M25.561, M25.562] 12/03/2018 CKD (chronic kidney disease) stage 3, GFR 30-59*03/08/2021 12/02/2024 Bacterial sinusitis [J32.9, B96.89] 12/02/2024 Encounter Status:Closed by GREGORIA ANDERSON on 12/10/24 Normal [facility] CBC W Auto Differential pane l (Bld)on 12-09-2024 Basophils (Bld) [#/Vol] 0.07 10*3/uL Normal <0.11 [facility] Comment on above: Order Comment: Speci men Type: BLOOD SPECIMENOrdering Facility: [facility] Address: [address] [place] [address] Performed By: #### 5 7021-8 ####[facility] LABCLIA [id number] [place] [address] [place] Basophils/100 WBC (Bld) 0.8 % Normal [facility] Comment on above: Order Comment: Speci men Type: BLOOD SPECIMENOrdering Facility: [facility] Address: [address] [place] [address] Performed By: #### 5 7021-8 ####[facility] LABCLIA [id number] [place] [address] [place] Differential cell count method Nom (Bld) Auto Normal [facility] Comment on above: Order Comment: Speci men Type: BLOOD SPECIMENOrdering Facility: [facility] Address: [address] [place] [address] Performed By: #### 5 7021-8 ####[facility] LABCLIA [id number] [place] [address] [place] Eosinophils (Bld) [#/Vol] 0.26 10*3/uL Normal <0.46 [facility] Comment on above: Order Comment: Speci men Type: BLOOD SPECIMENOrdering Facility: [facility] Address: [address] [place] [address] Performed By: #### 5 7021-8 ####[facility] LABCLIA [id number] [place] [id number] [place] Eosinophils/100 WBC (Bld) 2.8 % Normal [facility] Comment on above: Order Comment: Speci men Type: BLOOD SPECIMENOrdering Facility: [facility] Address: [address] [place] [address] Performed By: #### 5 7021-8 ####[facility] LABCLIA [id number] [address], [place] [address] [place] Erythrocyte distribution width (RBC) [Ratio] 13.3 % Normal 11.5-15.0 [facility] Comment on above: Order Comment: Speci men Type: BLOOD SPECIMENOrdering Facility: [facility] Address: [address] [place] [address] Performed By: #### 5 7021-8 ####[facility] LABCLIA [id number] [address], [place] [address] [place] Hematocrit (Bld) [Volume fraction] 36.0 % Normal 36.0-46.0 [facility] Comment on above: Order Comment: Speci men Type: BLOOD SPECIMENOrdering Facility: [facility] Address: [address] [place] [address] Performed By: #### 5 7021-8 ####[facility] LABCLIA [id number] [address], [facility] [place] Hemoglobin (Bld) [Mass/Vol] 11.8 g/dL Normal 11.5-15.5 [facility] Comment on above: Order Comment: Speci men Type: BLOOD SPECIMENOrdering Facility: [facility] Address: [address] [place] [address] Performed By: #### 5 7021-8 ####[facility] LABCLIA [id number] [address], [facility] [place] Immature granulocytes (Bld) [#/Vol] 0.17 10*3/uL High <0.10 [facility] Comment on above: Order Comment: Speci men Type: BLOOD SPECIMENOrdering Facility: [facility] Address: [address] [place] [address] Performed By: #### 5 7021-8 ####[facility] LABCLIA [id number] [address] [place] Immature granulocytes/100 WBC (Bld) 1.9 % Normal [facility] Comment on above: Order Comment: Speci men Type: BLOOD SPECIMENOrdering Facility: [facility] Address: [address] [place] [address] Performed By: #### 5 7021-8 ####[facility] LABCLIA [id number] [place] [address] [place] Lymphocytes (Bld) [#/Vol] 1.79 10*3/uL Normal 1.00-4.00 [facility] Comment on above: Order Comment: Speci men Type: BLOOD SPECIMENOrdering Facility: [facility] Address: [address] [place] [address] Performed By: #### 5 7021-8 ####[facility] LABCLIA [id number] [place] [address] [place] Lymphocytes/100 WBC (Bld) 19.5 % Normal [facility] Comment on above: Order Comment: Speci men Type: BLOOD SPECIMENOrdering Facility: [facility] Address: [address] [place] [address] Performed By: #### 5 7021-8 ####[facility] LABCLIA [id number] [place] [id number] [place] MCH (RBC) [Entitic mass] 29.7 pg Normal 26.0-34.0 [facility] Comment on above: Order Comment: Speci men Type: BLOOD SPECIMENOrdering Facility: [facility] Address: [address] [place] [address] Performed By: #### 5 7021-8 ####[facility] LABCLIA [id number] [place] [address] [place] MCHC (RBC) [Mass/Vol] 32.8 g/dL Normal 30.5-36.0 [facility] Comment on above: Order Comment: Speci men Type: BLOOD SPECIMENOrdering Facility: [facility] Address: [address] [place] [address] Performed By: #### 5 7021-8 ####[facility] LABIA [id number] [place] [address] [place] MCV (RBC) [Entitic vol] 90.7 fL Normal 80.0-100.0 [facility] Comment on above: Order Comment: Speci men Type: BLOOD SPECIMENOrdering Facility: [facility] Address: [address] [place] [address] Performed By: #### 5 7021-8 ####[facility] LABIA [id number] [place] [address] [place] Monocytes (Bld) [#/Vol] 0.84 10*3/uL Normal <0.87 [facility] Comment on above: Order Comment: Speci men Type: BLOOD SPECIMENOrdering Facility: [facility] Address: [address] [place] [address] Performed By: #### 5 7021-8 ####[facility] LABIA [id number] [place] [address] [place] Monocytes/100 WBC (Bld) 9.2 % Normal [facility] Comment on above: Order Comment: Speci men Type: BLOOD SPECIMENOrdering Facility: [facility] Address: [address] [place] [address] Performed By: #### 5 7021-8 ####[facility] LABCLIA [id number] [place] [address] [place] Neutrophils (Bld) [#/Vol] 6.03 10*3/uL Normal 1.45-7.50 [facility] Comment on above: Order Comment: Speci men Type: BLOOD SPECIMENOrdering Facility: [facility] Address: [address] [place] [address] Performed By: #### 5 7021-8 ####[facility] LABCLIA [id number] [place] [id number] [place] Neutrophils/100 WBC (Bld) 65.8 % Normal [facility] Comment on above: Order Comment: Speci men Type: BLOOD SPECIMENOrdering Facility: [facility] Address: [address] [place] [address] Performed By: #### 5 7021-8 ####[facility] LABCLIA [id number] [place] [address] [place] Nucleated RBC (Bld) [#/Vol] 10*3/uL Normal <0.01 [facility] Comment on above: Order Comment: Speci men Type: BLOOD SPECIMENOrdering Facility: [facility] Address: [address] [place] [address] Performed By: #### 5 7021-8 ####[facility] LABCLIA [id number] [place] [address] [place] Nucleated RBC/100 WBC (Bld) [Ratio] 0.0 /100 WBC Normal [facility] Comment on above: Order Comment: Speci men Type: BLOOD SPECIMENOrdering Facility: [facility] Address: [address] [place] [address] Performed By: #### 5 7021-8 ####[facility] LABCLIA [id number] [place] [id number] [place] Platelet mean volume (Bld) [Entitic vol] 11.6 fL Normal 9.0-12.7 [facility] Comment on above: Order Comment: Speci men Type: BLOOD SPECIMENOrdering Facility: [facility] Address: [address] [place] [address] Performed By: #### 5 7021-8 ####[facility] LABCLIA [id number] [address] [address] [place] Platelets (Bld) [#/Vol] 292 10*3/uL Normal 150-400 [facility] Comment on above: Order Comment: Speci men Type: BLOOD SPECIMENOrdering Facility: [facility] Address: [address] [place] [address] Performed By: #### 5 7021-8 ####[facility] LABIA [id number] [place] [address] [place] RBC (Bld) [#/Vol] 3.97 10*6/uL Normal 3.90-5.20 [facility] Comment on above: Order Comment: Speci men Type: BLOOD SPECIMENOrdering Facility: [facility] Address: [address] [place] [address] Performed By: #### 5 7021-8 ####[facility] [id number] [place] [address] [place] WBC (Bld) [#/Vol] 9.16 10*3/uL Normal 3.70-11.00 [facility] Comment on above: Order Comment: Speci men Type: BLOOD SPECIMENOrdering Facility: [facility] Address: [address] [place] [address] Performed By: #### 5 7021-8 ####[facility] LABIA [id number] [place] [id number] [place] Comprehensive metabolic 2000 panelon 12-09-2024 Albumin [Mass/Vol] 3.8 g/dL Low 3.9-4.9 [facility] Comment on above: Order Comment: Speci men Type: BLOOD SPECIMENOrdering Facility: [facility] Address: [address] [place] [address] Performed By: #### 3 016-3, 47962-1, 10595-7 ####[facility] LABCLIA [id number] [place] [id number] [place] ALP [Catalytic activity/Vol] 82 U/L Normal 34-123 [facility] Comment on above: Order Comment: Speci men Type: BLOOD SPECIMENOrdering Facility: [facility] Address: [address] [place] [address] Performed By: #### 3 016-3, 55904-8, 94667-1 ####[facility] LABCLIA [id number] [place] [address] [place] ALT [Catalytic activity/Vol] 8 U/L Normal 7-38 [facility] Comment on above: Order Comment: Speci men Type: BLOOD SPECIMENOrdering Facility: [facility] Address: [address] [place] [address] Performed By: #### 3 016-3, 06636-3, 62010-7 ####[facility] LABCLIA [id number] [place] [address] [place] Anion gap [Moles/Vol] 11 mmol/L Normal 8-15 [facility] Comment on above: Order Comment: Speci men Type: BLOOD SPECIMENOrdering Facility: [facility] Address: [address] [place] [address] Performed By: #### 3 016-3, 62880-1, 12880-6 ####[facility] LABCLIA [id number] [place] [address] [place] AST [Catalytic activity/Vol] 15 U/L Normal 13-35 [facility] Comment on above: Order Comment: Speci men Type: BLOOD SPECIMENOrdering Facility: [facility] Address: [address] [place] [address] Performed By: #### 3 016-3, 84185-6, 22968-3 ####[facility] LABCLIA [id number] [address] [address] [place] Bilirubin [Mass/Vol] 1.1 mg/dL Normal 0.2-1.3 [facility] Comment on above: Order Comment: Speci men Type: BLOOD SPECIMENOrdering Facility: [facility] Address: [address] [place] [address] Performed By: #### 3 016-3, , ####[facility] LABCLIA [id number] [address] [address] [place] Calcium [Mass/Vol] 9.6 mg/dL Normal 8.5-10.2 [facility] Comment on above: Order Comment: Speci men Type: BLOOD SPECIMENOrdering Facility: [facility] Address: [address] [place] [address] Performed By: #### 3 016-3, , ####[facility] LABCLIA [id number] [place] [address] [place] Chloride [Moles/Vol] 102 mmol/L Normal 98-107 [facility] Comment on above: Order Comment: Speci men Type: BLOOD SPECIMENOrdering Facility: [facility] Address: [address] [place] [address] Performed By: #### 3 016-3, , ####[facility] LABCLIA [id number] [place] [id number] [place] CO2 [Moles/Vol] 21 mmol/L Low 22-30 [facility] Comment on above: Order Comment: Speci men Type: BLOOD SPECIMENOrdering Facility: [facility] Address: [address] [place] [address] Performed By: #### 3 016-3, , ####[facility] LABCLIA [id number] [address] [address] [place] Creatinine [Mass/Vol] 1.03 mg/dL High 0.58-0.96 [facility] Comment on above: Order Comment: Speci men Type: BLOOD SPECIMENOrdering Facility: [facility] Address: [address] [place] [address] Performed By: #### 3 016-3, 83580-6, 31058-2 ####[facility] LABIA [id number] [place] [address] [place] eGFRcr SerPlBld CKD-EPI 2020 54 mL/min/1.73m??? Low >=60 [facility] Comment on above: Order Comment: Tessa men Type: BLOOD SPECIMENOrdering Facility: [facility] Address: [address] [place] [address] Result Comment: Lilo mated Glomerular Filtration Rate (eGFR) is calculated using the 2020 CKD-EPI creatinine equation. This equation utilizes serum creatinine, sex, and age as parameters. The creatinine assay has traceable calibration to isotope dilution-mass spectrometry. Refer to KDIGO guidelines for clinical interpretation. In patients with unstable renal function, e.g. those with acute kidney injury, the eGFR may not accurately reflect actual GFR. Performed By: #### 3 016-3, 57307-6, 39301-0 ####[facility] LABCLIA [id number] [place] [id number] [place] Glucose [Mass/Vol] 97 mg/dL Normal 74-99 [facility] Comment on above: Order Comment: Tessa kamara Type: BLOOD SPECIMENOrdering Facility: [facility] Address: [address] [place] [address] Result Comment: The [place] Diabetes Association (ADA) provides guidance for cutoff values for fasting glucose and random glucose. The ADA defines fasting as no caloric intake for at least 8 hours. Fasting plasma glucose results between 100 to 125 mg/dL indicate increased risk for diabetes (prediabetes). Fasting plasma glucose results greater than or equal to 126 mg/dL meet the criteria for diagnosis of diabetes. In the absence of unequivocal hyperglycemia, results should be confirmed by repeat testing. In a patient with classic symptoms of hyperglycemia or hyperglycemic crisis, random plasma glucose results greater than or equal to 200 mg/dL meet the criteria for diagnosis of diabetes. Reference: Standards of Medical Care in Diabetes 2016, [place] [employer] Association. Diabetes Care. 2016.39(Suppl 1). Performed By: #### 3 016-3, 47949-6, 62722-8 ####[facility] LABCLIA [id number] [address] [address] [place] Potassium [Moles/Vol] 4.6 mmol/L Normal 3.7-5.1 [facility] Comment on above: Order Comment: Speci men Type: BLOOD SPECIMENOrdering Facility: [facility] Address: [address] [place] [address] Performed By: #### 3 016-3, 67417-3, 98522-7 ####[facility] LABCLIA [id number] [place] [address] [place] Protein [Mass/Vol] 6.9 g/dL Normal 6.3-8.0 [facility] Comment on above: Order Comment: Speci men Type: BLOOD SPECIMENOrdering Facility: [facility] Address: [address] [place] [address] Performed By: #### 3 016-3, 81347-3, 51148-4 ####[facility] LABIA [id number] [place] [id number] [place] Sodium [Moles/Vol] 134 mmol/L Low 136-144 [facility] Comment on above: Order Comment: Speci men Type: BLOOD SPECIMENOrdering Facility: [facility] Address: [address] [place] [address] Performed By: #### 3 016-3, 81543-9, 27324-5 ####[facility] LABIA [id number] [address] [address] [place] Urea nitrogen [Mass/Vol] 15 mg/dL Normal 7-21 [facility] Comment on above: Order Comment: Speci men Type: BLOOD SPECIMENOrdering Facility: [facility] Address: [address] [place], [place] [address] Performed By: #### 3 016-3, 37851-3, 35912-1 ####[facility] LABCLIA [id number] [address] [address] [place] [facility] [place] Lipid 1996 panelon 5 Cholesterol [Mass/Vol] 149 mg/dL Normal <200 [facility] Comment on above: Order Comment: Speci men Type: BLOOD SPECIMENOrdering Facility: [facility] Address: [address] [place] [address] Result Comment: <200 mg/dL, Desirable 200-239 mg/dL, Borderline high >239 mg/dL, High Performed By: #### 3 016-3, , ####[facility] LABCLIA [id number] [address] [place] Cholesterol in HDL [Mass/Vol] 47 mg/dL Normal >39 [facility] Comment on above: Order Comment: Speci men Type: BLOOD SPECIMENOrdering Facility: [facility] Address: [address] [place] [address] Result Comment: 40-5 9 mg/dL, Acceptable >59 mg/dL, High: Negative risk factor for coronary heart disease <40 mg/dL, Low: Positive risk factor for coronary heart disease Performed By: #### 3 016-3, , ####[facility] LABCLIA [id number] [address] OF [facility] Cholesterol in LDL [Mass/Vol] 81 mg/dL Normal <100 [facility] Comment on above: Order Comment: Speci men Type: BLOOD SPECIMENOrdering Facility: [facility] Address: [address] [place] [address] Result Comment: <100 mg/dL, Optimal 100-129 mg/dL, Near optimal/above optimal 130-159 mg/dL, Borderline high 160-189 mg/dL, High >189 mg/dL, Very high Secondary prevention optimal LDL Cholesterol levels are recommended to be <70 mg/dL LDL cholesterol is calculated using the Good-NIH equation. Performed By: #### 3 016-3, 00500-2, 49673-0 ####[facility] LABCLIA [id number] [place] [id number] [place] Cholesterol in LDL/Cholesterol in HDL [Mass ratio] 1.72 {ratio} Normal <2.54 [facility] Comment on above: Order Comment: Speci men Type: BLOOD SPECIMENOrdering Facility: [facility] Address: [address] [place] [address] Result Comment: Refe rence: 1. National Cholesterol Education Program ATP III Guideline At-A-Glance Quick Desk Reference: National Heart, Lung, and Blood Riva. National Institutes of Health. 2001: NIH Publication No. 01-3305. 2. An International Atherosclerosis Society position paper: global recommendations for the management of dyslipidemia: executive summary, Atherosclerosis. 2014: 232(2):410-413. Performed By: #### 3 016-3, 18867-0, ####[facility] LABCLIA [id number] [place] [address] [place] Cholesterol in VLDL [Mass/Vol] 18 mg/dL Normal <30 [facility] Comment on above: Order Comment: Speci men Type: BLOOD SPECIMENOrdering Facility: [facility] Address: [address] [place] [address] Performed By: #### 3 016-3, 55733-5, ####[facility] LABCLIA [id number] [place] [id number] [place] Cholesterol non HDL [Mass/Vol] 102 mg/dL Normal <130 [facility] Comment on above: Order Comment: Speci men Type: BLOOD SPECIMENOrdering Facility: [facility] Address: [address] [place] [address] Result Comment: <130 mg/dL, Optimal 130-159 mg/dL, Near optimal/above optimal 160-189 mg/dL, Borderline high 190-219 mg/dL, High >219 mg/dL, Very high Secondary prevention optimal non HDL Cholesterol levels are recommended to be <100 mg/dL Performed By: #### 3 016-3, 08640-3, ####[facility] LABIA [id number] [address] [address] [place] Cholesterol.total/Ch olesterol in HDL [Mass ratio] 3.17 {ratio} Normal <5.10 [facility] Comment on above: Order Comment: Speci men Type: BLOOD SPECIMENOrdering Facility: [facility] Address: [address] [place] [address] Performed By: #### 3 016-3, , ####[facility] [id number] [place] [address] [place] FASTING TIME 12 hrs Normal [facility] Comment on above: Order Comment: Speci men Type: BLOOD SPECIMENOrdering Facility: [facility] Address: [address] [place] [address] Performed By: #### 3 016-3, , ####[facility] LABIA [id number] [address], [place] [address] [place] Triglyceride [Mass/Vol] 119 mg/dL Normal <150 [facility] Comment on above: Order Comment: Speci men Type: BLOOD SPECIMENOrdering Facility: [facility] Address: [address] [place] [address] Result Comment: <150 mg/dL, Normal 150-199 mg/dL, Borderline high 200-499 mg/dL, High >499 mg/dL, Very high Performed By: #### 3 016-3, 46537-1, ####[facility] LABIA [id number] [place] [id number] [place] TSH SerPl-aCncon 12-09-2024 TSH Qn 5.210 m[IU]/L High 0.270-4.200 [facility] Comment on above: Order Comment: Speci men Type: BLOOD SPECIMENOrdering Facility: [facility] Address: [address] [place] [address] Performed By: #### 3 016-3, 62072-3, 76577-1 ####[facility] MELODY [id number] [place] [id number] [facility] CNOVon 12-02-2024 CNOV Office Visit (FAMPWS ) TRICIA GRANADOS ([id number]) 1940 F Date Time Provider Department 12/02/24 8:40 AM ROSALINO CARMONA FAMPWS During your visit today, we recorded the following information about you: Pulse Blood pressure Weight 47/minute 110/60 85.5 kg Rosalino Carmona MD 12/02/2024 8:54 AM Signed - Start amoxicillin (mid-range dose) for 7 days for your sinus infection; prescription sent to [facility] in [place]. - Refill your amlodipine, hydralazine, and metoprolol as before. - Continue Eliquis as directed; let us know if you notice any unusual bleeding. - Schedule fasting blood work in the next week or two: CBC, metabolic panel (blood sugar, kidney, and liver tests), cholesterol, and thyroid. You may drink water, black coffee, and take your pills, but do not eat for 12 hours before the draw. - We will send your lab results to your cardiologists, Demetrice Greer and Dr. Mchugh. - Keep your cardiology appointment next month with Demetrice Greer as planned. - Wear support hose as needed to help reduce ankle swelling. - If your sinus symptoms do not improve within about a week or if you feel significantly worse, contact the office. Rosalino Carmona MD 12/02/2024 9:02 AM Signed Tricia Granados is an 84-year-old female with a history of atrial fibrillation, presenting for evaluation of sinus congestion, fatigue, and weight loss. HPI Sinus Congestion: - Onset: 1 week ago. - Symptoms: Nasal congestion, rhinorrhea (primarily clear, occasionally yellow), post-nasal drip causing cough, dizziness with quick head movements, and pressure over maxillary sinuses. - Denies sore throat, otalgia, dyspnea, chest discomfort, abdominal pain, nausea, or emesis. - No home COVID testing performed. Fatigue: - Reports persistent fatigue, attributing it to aging. - Denies palpitations or dizziness. - Dyspnea only with exertion. - Denies melena, hematochezia, diarrhea, or constipation. Weight Loss: - Lost 23 lbs over the past 11 months. - Attributes weight loss to decreased appetite and smaller portion sizes. - Increased fruit consumption. - Denies intentional weight loss efforts. MEDICATIONS: Current Outpatient Medications Medication Sig losartan (COZAAR) 100 mg tablet Take 1 tablet by mouth once daily. apixaban (ELIQUIS) 5 mg tab(s) Take 5 mg by mouth two times a day. hydrALAZINE (APRESOLINE) 50 mg tablet Take 1 tablet by mouth three times a day. For blood pressure metoprolol succinate ER (TOPROL XL) 50 mg 24 hr tablet Take 1 tablet by mouth two times a day. amLODIPine (NORVASC) 10 mg tablet Take 1 tablet by mouth every afternoon. amoxicillin-clavulanate potassium (AUGMENTIN) 875-125 mg per tablet Take 1 tablet by mouth every 12 hours for 7 days. No current facility-administered medications for this visit. ALLERGIES: ALLERGIES Allergen Reactions Caffeine Intolerance PAST MEDICAL HISTORY Diagnosis Date Anxiety Atrial fibrillation (HCC) HTN (hypertension) Seborrheic keratosis right ear PAST SURGICAL HISTORY Procedure Laterality Date HYSTERECTOMY bleediing issues. no malignancy LAPAROSCOPIC CHOLECYSTECTOMY 01/11/1995 REMV CATARACT EXTRACAP,INSERT LENS Right 12/03/2023 REMV CATARACT EXTRACAP,INSERT LENS Left 12/12/2023 FAMILY HISTORY Problem Relation Age of Onset Hypertension Mother other (chf) Mother Stroke Father Ischemic Heart Disease Sister SOCIAL HISTORY[1] Reviewed current medications, allergies, past medical history, surgical history, family history and social history today. REVIEW OF SYSTEMS Constitutional: (+) fatigue, (+) weight loss, (-) fever, (-) chills Ears/Nose/Mouth/Throat: (+) nasal congestion, (+) rhinorrhea, (+) facial pressure, (-) sore throat, (-) ear pain Cardiovascular: (+) ankle swelling, (-) chest discomfort, (-) palpitations Respiratory: (+) productive cough, (+) exertional dyspnea Gastrointestinal: (-) abdominal pain, (-) nausea, (-) vomiting, (-) diarrhea, (-) constipation, (-) melena Neurological: (-) dizziness Hematologic/Lymphatic: (-) bleeding tendency HEALTH MAINTENANCE: Reviewed health maintenance issues today and recommended the following in detail. Medicare Annual Wellness Visit Never done LAB REVIEWED: VITALS: BP 110/60 Pulse (!) 47 Wt 85.5 kg (188 lb 6.4 oz) SpO2 97% BMI 30.41 kg/m? Last 4 Encounter Wt Readings: Date: Wt: 12/02/2024 85.5 kg (188 lb 6.4 oz) 05/26/2024 88.5 kg (195 lb) 04/28/2024 89.8 kg (198 lb) 01/24/2024 0 kg () PHYSICAL EXAMINATION: GENERAL: NAD, alert and oriented. SKIN: Unremarkable, no rash or skin lesions. HEAD: Normocephalic. EYES: PERRLA, EOMI, conjunctiva clear. EARS: External ears normal, canals clear, TM's normal. NOSE/SINUSES: Nares normal. Septum midline. Mild pressure over maxillary sinuses. OROPHARYNX: Lips, mucosa, and tongue normal, good dent (more content not included)... Normal [facility] CNOVon 09-21-2024 CNOV Office Visit (MARISOL ) TRICIA GRANADOS ([id number]) 1940 F Date Time Provider Department 09/21/24 8:30 AM BREANNA CANSECO During your visit today, we recorded the following information about you: Carmelita Tran MA 09/21/2024 9:10 AM Signed Patient presents with: Left Knee - Injections, Established Patient Right Knee - Injections, Established Patient: 15 weeks post visit OA Bilateral knees with injections given Wants injections AMB ROOMING INTAKE FLOWSHEET DATA Pain Pain Level: 6 Pain Location: Knee-Left Description: Stiffness Duration Amount of Time: (Ongoing) Frequency: Intermittent (Occurs when getting in and out of the car) Intervention/Comfort measure: Positioning Patient states the injection in her left knee only last for 2 weeks. The injection in her right knee is continuing to help. Taking no med's for the pain. Here for injections today. Breanna Canseco PA-C 09/21/2024 9:10 AM Signed Patient presents for repeat bilateral knee corticosteroid injections, right knee injection was extremely beneficial, got 2 weeks with left knee injection, previously was getting 3 months of relief. Is maybe interested in trying some viscosupplementation. Large Joint Arthro/Inj: bilateral knee joints 09/21/2024 9:10 AM The procedure site was prepped in the usual sterile fashion. Site: bilateral knee joints Medications (Right): 6 mg betamethasone acetate-betamethasone sodium phosphate 6 mg/mL Medications (Left): 6 mg betamethasone acetate-betamethasone sodium phosphate 6 mg/mL Anesthetics (Right): 5 mL lidocaine (PF) 10 mg/mL (1 %) Anesthetics (Left): 5 mL lidocaine (PF) 10 mg/mL (1 %) Outcome: Tolerated well, no immediate complications Post-injection instructions were reviewed with the patient and the patient voiced understanding of these instructions. Informed Consent Consent Obtained: Verbal [place] Protocol A moment to CARE was completed. SIGN IN Sign in communication not applicable due to emergent procedure. Personnel directly involved with the procedure wore the appropriate PPE. Special Equipment: N/A Patient/Surrogate Stated/Verified: Patient name, Date of , Relevant allergies and Intended procedure TIME OUT Relevant labs, photos, and/or imaging studies have been reviewed. Consent documented and matches the intended procedure. Correct side/site marked and visible. Medications required for procedure verified. No fire risk assessment and interventions applicable. No implant(s) inserted. SIGN OUT No specimen collected. No post-procedure POC communication to the patient's multidisciplinary team (including the bedside nurse for hospitalized patients) applicable. Allergies As of Date: 09/21/2024 Noted Allergy Reaction CAFFEINE 02/16/2014 5 - Intolerance Date Reviewed: 09/21/2024 Reviewed by: Carmelita Tran MA - Fully Assessed Reason for Visit: Injections [199] Established Patient [175] Injections [199] Cmt: 15 weeks post visit OA Bilateral knees with injections given Wants injections Established Patient [175] Cmt: 15 weeks post visit OA Bilateral knees with injections given Wants injections Primary Visit Diagnosis:Primary osteoarthritis of both knees [M17.0] Order(s):Large Joint Arthro/Inj: bilateral knee joints [UWK335] Order #: [id number] [] betamethasone acetate-betamethasone sodium phosphate 6 mg injection (CELESTONE)Disp: Rfl: [] betamethasone acetate-betamethasone sodium phosphate 6 mg injection (CELESTONE)Disp: Rfl: [] lidocaine (PF) 10 mg/mL (1 %) 5 mL injection (XYLOCAINE)Disp: Rfl: [] lidocaine (PF) 10 mg/mL (1 %) 5 mL injection (XYLOCAINE)Disp: Rfl: Prescriptions as of 09/21/2024 - metoprolol succinate ER (TOPROL XL) 50 mg 24 hr tablet Take 50 mg by mouth two times a day. - amLODIPine (NORVASC) 10 mg tablet Take 1 tablet by mouth every afternoon. - hydrALAZINE (APRESOLINE) 50 mg tablet Take 1 tablet by mouth three times a day. For blood pressure - losartan (COZAAR) 100 mg tablet Take 1 tablet by mouth once daily. - apixaban (ELIQUIS) 5 mg tab(s) Take 5 mg by mouth two times a day. Problem List As Of Date 09/21/2024 Noted Resolved Paroxysmal atrial fibrillation (HCC) [I48.0] 02/06/2018 Hypertension [I10] 11/15/2011 Chronic anticoagulation [Z79.01] 02/15/2018 Anxiety [F41.9] 02/15/2018 LBBB (left bundle branch block) [I44.7] 11/21/2018 Pain in both knees [M25.561, M25.562] 12/03/2018 CKD (chronic kidney disease) stage 3, GFR 30-59*03/08/2021 Prescriptions ordered this encounter Disp Refills Start End BETAMETHASONE ACETATE AND SODIUM KJ* 09/21/2024 09/21/2024 Route: Inj-ORTHO BETAMETHASONE ACETATE AND SODIUM KJ* 09/21/2024 09/21/2024 Route: Inj-ORTHO LIDOCAINE (PF) 10 MG/ML (1 %) INJECT* 09/21/2024 09/21/2024 Route: Inj-ORTHO LIDOCAINE (PF) 10 MG/ML (1 %) INJECT* 09/21/2024 (more content not included)... Normal [facility] Large Joint Arthro/Inj: bila teral knee jointson 09-21-2024 Breanna Canseco PA -C 09/21/2024 9:10 AM Large Joint Arthro/Inj: bilateral knee joints 09/21/2024 9:10 AM The procedure site was prepped in the usual sterile fashion. Site: bilateral knee joints Medications (Right): 6 mg betamethasone acetate-betamethasone sodium phosphate 6 mg/mL Medications (Left): 6 mg betamethasone acetate-betamethasone sodium phosphate 6 mg/mL Anesthetics (Right): 5 mL lidocaine (PF) 10 mg/mL (1 %) Anesthetics (Left): 5 mL lidocaine (PF) 10 mg/mL (1 %) Outcome: Tolerated well, no immediate complications Post-injection instructions were reviewed with the patient and the patient voiced understanding of these instructions. Informed Consent Consent Obtained: Verbal [place] Protocol A moment to CARE was completed. SIGN IN Sign in communication not applicable due to emergent procedure. Personnel directly involved with the procedure wore the appropriate PPE. Special Equipment: N/A Patient/Surrogate Stated/Verified: Patient name, Date of , Relevant allergies and Intended procedure TIME OUT Relevant labs, photos, and/or imaging studies have been reviewed. Consent documented and matches the intended procedure. Correct side/site marked and visible. Medications required for procedure verified. No fire risk assessment and interventions applicable. No implant(s) inserted. SIGN OUT No specimen collected. No post-procedure POC communication to the patient's multidisciplinary team (including the bedside nurse for hospitalized patients) applicable. [facility] Cardiology Visit Reporton Cardiology Visit Report [facility] [address] [place] [address] OFFICE VISIT Date of Service: 07/10/24 MR#: [id number] Acct: [id number] Name: TRICIA GRANADOS Rep #: [id number] : 1940 Provider: SAMANTHA Pendleton Age/Sex: 83/F Location[place] [facility] Status: Signed HPI HPI History of Present Illness Details: Tricia Granados is an 83 year-old lady with a history of hypertension paroxysmal atrial fibrillation who returns for follow-up visit. From a cardiac standpoint, patient is doing well. She does not have any chest discomfort/heaviness/ti ghtness. She does not have any worsening symptoms of shortness of breath. She does not have any orthopnea. She denies PND. She does not have any symptoms of congestive heart failure. She does not have any palpitations that she is aware of. She does not have any lightheadedness or dizziness. She does not have any near-syncope or syncope. She does not have any lower extremity edema. She does not have any symptoms of claudication. Her BP log at home demonstrated its is controlled. Intake Vital Signs 03/10/24 13:49 07/10/24 07:43 07/10/24 10:23 Height 5 ft 6 in 5 ft 6 in Weight: 203 lb 196 lb BMI 32.8 31.6 BP 160/100 H 168/78 H 148/68 H Blood Pressure Location Lt brachial Lt brachial Position Sitting Sitting Respiration 18 18 Pulse 76 Pulse Source Monitor Monitor Pulse Oximetry (%) 99 Intake Visit Reasons: 4 M Cad Librarian Required: No Is patient in pain?: No Allergies caffeine Adverse Reaction (Verified 07/10/24 09:56) Other Medications ???Medication ???Instructions ???Recorded ???Confirmed ???Type losartan 100 mg tablet See Rx Instructions .Route 4 07/10/24 Rx .COMPLEX blood pressure #90 tabs apixaban 5 mg tablet (Eliquis) 5 mg PO BID 01/09/24 07/10/24 Hist ory amlodipine 10 mg tablet 10 mg PO QDAY #30 tabs 03/17/24 Rx metoprolol succinate 50 mg 50 mg PO BID blood pressure This 1 05/24/23 07/10/24 Rx tablet,extended release 24 hr is a dose increase #180 tabs hydralazine 50 mg tablet 50 mg PO TID 90 days #270 tabs 09/1307/10/24 Rx Ejection fraction %: 65 Have you fallen in the past year?: No PFSH Medical History Paroxysmal A-fib Chronic anticoagulation Longstanding persistent atrial fibrillation Left bundle branch block (LBBB) Obesity Paroxysmal atrial fibrillation Essential (primary) hypertension Transient global amnesia Anxiety disorder Surgical History Hx of appendectomy H/O oophorectomy History of cholecystectomy H/O: hysterectomy Family History Father CVA (cerebral vascular accident) Mother Hypertension Heart disease CHF (congestive heart failure) Social History Smoking Status: Former smoker how long ago did patient quit smokin years age alcohol intake: never caffeine: No ROS Const Const: Negative for fatigue, weakness, headache(s) or frequent falls Eyes Eyes: Negative for blurry vision ENT ENT: Negative for headache(s), dizziness or Nosebleed/epistaxis Cardio Chest Pain: No Palpitations: No Edema: None Muscle aches with walking: None Resp Respiratory: Negative for SOB with activity, SOB at rest or SOB orthopnea SOB lying down GI GI: Negative nausea, vomiting, heartburn, bright, red blood in stools or black,tarry stools : Negative for hematuria Neuro Neuro: Negative for dizziness, lightheadedness, near syncope, syncope, frequent falls, headache(s), weakness or blurry vision Endo Endo: Negative for fatigue Cardiology Exam Const Appearance: cooperative, no acute distress and well developed Orientation: alert, awake and oriented x3 Head Head: normal to inspection Ears: hearing grossly normal bilaterally Nose: external nose normal Face and Sinus: face symmetric Mouth: oral mucosae normal, lip normal and moist mucous membranes Eyes General: appearance normal, both eyes and all related structures Eyelids: eyelids normal Conjunctivae: conjunctivae normal Pupils: PERRL EOM: EOM intact bilaterally Neck Neck: normal visual inspection and trachea midline; Negative no JVD Carotids: Negative bruit Chest Chest inspection: normal inspection of the chest Auscultation: Bilateral: Clear to Auscultation Cardio Palpation: normal PMI Rate: regular rate Rhythm: regular rhythm Heart sounds: S1 normal and S2 normal; Negative rub, gallop or murmur GI GI: soft, no hepatosplenomegaly and bowel sounds present Neuro General: patient alert, patient awake, patient oriented x3 an (more content not included)... Normal [facility] CNOVon 06-08-2024 CNOV Office Visit (ORTHWS ) TRICIA GRANADOS ([id number]) 1940 F Date Time Provider Department 06/08/24 8:30 AM BREANNA CANSECO During your visit today, we recorded the following information about you: Carmelita Tran MA 06/08/2024 8:32 AM Signed Patient presents with: Right Knee - Follow Up, Injections Left Knee - Follow Up, Injections: 14 weeks post visit OA bilateral knees with injections given Wants injections AMB ROOMING INTAKE FLOWSHEET DATA Patient denies any pain today. Here for cortisone injections bilateral knees Breanna Canseco PA-C 06/08/2024 8:32 AM Signed Large Joint Arthro/Inj: bilateral knee joints Informed Consent Consent Obtained: Verbal [place] Protocol A moment to CARE was completed. SIGN IN Sign in communication not applicable due to emergent procedure. Personnel directly involved with the procedure wore the appropriate PPE. Special Equipment: N/A Patient/Surrogate Stated/Verified: Patient name, Date of , Relevant allergies and Intended procedure TIME OUT Relevant labs, photos, and/or imaging studies have been reviewed. Intended patient and procedure match the source document(s). Consent documented and matches the intended procedure. Correct side/site marked and visible. Medications required for procedure verified. No fire risk assessment and interventions applicable. No implant(s) inserted.06/08/2024 8:32 AM The procedure site was prepped in the usual sterile fashion. Site: bilateral knee joints Medications (Right): 6 mg betamethasone acetate-betamethasone sodium phosphate 6 mg/mL Medications (Left): 6 mg betamethasone acetate-betamethasone sodium phosphate 6 mg/mL Anesthetics (Right): 5 mL lidocaine (PF) 10 mg/mL (1 %) Anesthetics (Left): 5 mL lidocaine (PF) 10 mg/mL (1 %) Outcome: Tolerated well, no immediate complications Post-injection instructions were reviewed with the patient and the patient voiced understanding of these instructions. SIGN OUT No specimen collected. No instruments, equipment or retained foreign bodies applicable. Post-procedure follow-up management communicated and Plan of Care Visit completed when applicable Allergies As of Date: 06/08/2024 Noted Allergy Reaction CAFFEINE 02/16/2014 5 - Intolerance Date Reviewed: 06/08/2024 Reviewed by: Carmelita Tran MA - Fully Assessed Reason for Visit: Follow Up [171] Injections [199] Follow Up [171] Cmt: 14 weeks post visit OA bilateral knees with injections given Wants injections Injections [199] Cmt: 14 weeks post visit OA bilateral knees with injections given Wants injections Primary Visit Diagnosis:Primary osteoarthritis of both knees [M17.0] Order(s):Large Joint Arthro/Inj: bilateral knee joints [DNS486] Order #: [id number] [] betamethasone acetate-betamethasone sodium phosphate 6 mg injection (CELESTONE)Disp: Rfl: [] betamethasone acetate-betamethasone sodium phosphate 6 mg injection (CELESTONE)Disp: Rfl: [] lidocaine (PF) 10 mg/mL (1 %) 5 mL injection (XYLOCAINE)Disp: Rfl: [] lidocaine (PF) 10 mg/mL (1 %) 5 mL injection (XYLOCAINE)Disp: Rfl: Prescriptions as of 06/08/2024 - metoprolol succinate ER (TOPROL XL) 50 mg 24 hr tablet Take 50 mg by mouth two times a day. - amLODIPine (NORVASC) 10 mg tablet Take 1 tablet by mouth every afternoon. - hydrALAZINE (APRESOLINE) 50 mg tablet Take 1 tablet by mouth three times a day. For blood pressure - losartan (COZAAR) 100 mg tablet Take 1 tablet by mouth once daily. - apixaban (ELIQUIS) 5 mg tab(s) Take 5 mg by mouth two times a day. Problem List As Of Date 06/08/2024 Noted Resolved Paroxysmal atrial fibrillation (HCC) [I48.0] 02/06/2018 Hypertension [I10] 11/15/2011 Chronic anticoagulation [Z79.01] 02/15/2018 Anxiety [F41.9] 02/15/2018 LBBB (left bundle branch block) [I44.7] 11/21/2018 Pain in both knees [M25.561, M25.562] 12/03/2018 CKD (chronic kidney disease) stage 3, GFR 30-59*03/08/2021 Prescriptions ordered this encounter Disp Refills Start End BETAMETHASONE ACETATE AND SODIUM KJ* 06/08/2024 06/08/2024 Route: Inj-ORTHO BETAMETHASONE ACETATE AND SODIUM KJ* 06/08/2024 06/08/2024 Route: Inj-ORTHO LIDOCAINE (PF) 10 MG/ML (1 %) INJECT* 06/08/2024 06/08/2024 Route: Inj-ORTHO LIDOCAINE (PF) 10 MG/ML (1 %) INJECT* 06/08/2024 06/08/2024 Route: Inj-ORTHO Encounter Status:Closed by BREANNA CANSECO on 06/08/[address] [facility] Large Joint Arthro/Inj: bila teral knee jointson 06-08-2024 Breanna Canseco PA -C 06/08/2024 8:32 AM Large Joint Arthro/Inj: bilateral knee joints Informed Consent Consent Obtained: Verbal [place] Protocol A moment to CARE was completed. SIGN IN Sign in communication not applicable due to emergent procedure. Personnel directly involved with the procedure wore the appropriate PPE. Special Equipment: N/A Patient/Surrogate Stated/Verified: Patient name, Date of , Relevant allergies and Intended procedure TIME OUT Relevant labs, photos, and/or imaging studies have been reviewed. Intended patient and procedure match the source document(s). Consent documented and matches the intended procedure. Correct side/site marked and visible. Medications required for procedure verified. No fire risk assessment and interventions applicable. No implant(s) inserted.06/08/2024 8:32 AM The procedure site was prepped in the usual sterile fashion. Site: bilateral knee joints Medications (Right): 6 mg betamethasone acetate-betamethasone sodium phosphate 6 mg/mL Medications (Left): 6 mg betamethasone acetate-betamethasone sodium phosphate 6 mg/mL Anesthetics (Right): 5 mL lidocaine (PF) 10 mg/mL (1 %) Anesthetics (Left): 5 mL lidocaine (PF) 10 mg/mL (1 %) Outcome: Tolerated well, no immediate complications Post-injection instructions were reviewed with the patient and the patient voiced understanding of these instructions. SIGN OUT No specimen collected. No instruments, equipment or retained foreign bodies applicable. Post-procedure follow-up management communicated and Plan of Care Visit completed when applicable [facility] CNOVon 05-26-2024 CNOV Office Visit (FAMPWS ) TRICIA GRANADOS ([id number]) 1940 F Date Time Provider Department 05/26/24 8:00 AM [facility] During your visit today, we recorded the following information about you: Pulse Blood pressure Weight Height 75/minute 130/58 88.5 kg 1.676 m Orquidea Robertson, EMPLOYEE BENEFITS SPECIALIST.CUSTOMS IMPORT SPECIALIST 05/26/2024 9:04 AM Addendum This is a 83 year old female who presents today with: Patient presents with: Follow Up HISTORY OF PRESENT ILLNESS: Tricia Granados is a 83 year old female. Patient presents with: Follow Up Feeling better. Stopped sertraline. Didn't like the side effects. Had a stomach virus. Diarrhea. Resolved. BP at home: 139/59, HR 68 124/54, 68 122/54, 53 133/61, 60 135/53, 52 132/53, 53 Daughter wants her to take Prevagen Sinus pressure and drainage, wanting antibiotics Not fatigued No headache No chest congestion + sinus drainage Coughing No body aches PAST MEDICAL HISTORY: PAST MEDICAL HISTORY Diagnosis Date Anxiety Atrial fibrillation (HCC) HTN (hypertension) Seborrheic keratosis right ear PAST SURGICAL HISTORY Procedure Laterality Date HYSTERECTOMY bleediing issues. no malignancy LAPAROSCOPIC CHOLECYSTECTOMY 01/11/1995 REMV CATARACT EXTRACAP,INSERT LENS Right 12/03/2023 REMV CATARACT EXTRACAP,INSERT LENS Left 12/12/2023 ALLERGIES Caffeine MEDICATIONS Current Outpatient Medications Medication Sig metoprolol succinate ER (TOPROL XL) 50 mg 24 hr tablet Take 50 mg by mouth two times a day. amLODIPine (NORVASC) 10 mg tablet Take 1 tablet by mouth every afternoon. hydrALAZINE (APRESOLINE) 50 mg tablet Take 1 tablet by mouth three times a day. For blood pressure losartan (COZAAR) 100 mg tablet Take 1 tablet by mouth once daily. apixaban (ELIQUIS) 5 mg tab(s) Take 5 mg by mouth two times a day. sertraline (ZOLOFT) 50 mg tablet Take 1 tablet by mouth once daily. Take 1/2 tab once a day orally for one week then 1 tab once a day (Patient not taking: Reported on 05/26/2024) No current facility-administered medications for this visit. FAMILY HISTORY Problem Relation Age of Onset Hypertension Mother other (chf) Mother Stroke Father Ischemic Heart Disease Sister Social History Tobacco Use Smoking status: Former Smokeless tobacco: Never Vaping Use Vaping status: Never Used Substance Use Topics Alcohol use: No Drug use: No EXAM: BP 157/69 Pulse 75 Ht 167.6 cm (5' 6") Wt 88.5 kg (195 lb) BMI 31.47 kg/m? PHYSICAL EXAM: Physical Exam Vitals reviewed. Constitutional: Appearance: Normal appearance. HENT: Head: Normocephalic. Right Ear: Tympanic membrane, ear canal and external ear normal. There is no impacted cerumen. Left Ear: Tympanic membrane, ear canal and external ear normal. There is no impacted cerumen. Nose: Congestion and rhinorrhea present. Comments: Sinus pressure and pain maxillary Nasal turbinates very red and excoriated Mouth/Throat: Pharynx: No oropharyngeal exudate or posterior oropharyngeal erythema. Neck: Vascular: No carotid bruit. Cardiovascular: Rate and Rhythm: Normal rate and regular rhythm. Pulses: Normal pulses. Heart sounds: Normal heart sounds. Comments: Soft JOSI @ sternal border, + S3 Pulmonary: Effort: Pulmonary effort is normal. Breath sounds: Normal breath sounds. Abdominal: Palpations: Abdomen is soft. Musculoskeletal: General: Normal range of motion. Lymphadenopathy: Cervical: No cervical adenopathy. Skin: General: Skin is warm and dry. Neurological: Mental Status: She is alert and oriented to person, place, and time. Psychiatric: Mood and Affect: Mood normal. Behavior: Behavior normal. LABS: ASSESSMENT/PLAN: 1. Acute recurrent maxillary sinusitis - ICD9: 461.0, ICD10: J01.01 (primary diagnosis) - Will begin treatment with Augmentin 875 mg PO BID for 10 days - AMOXICILLIN 875 MG-POTASSIUM CLAVULANATE 125 MG TABLET 2. Anxiety - ICD9: 300.00, ICD10: F41.9 Quit sertraline but feeling better 3. Primary hypertension - ICD9: 401.9, ICD10: I10 - Controlled - Recommend home blood pressure monitoring, to bring results to next visit - Encouraged sodium restriction, DASH or Mediterranean diet - Recommend regular aerobic exercise Discussed treatment plan and patient voices understanding. Patient's questions answered appropriately. Medications and potential side effects were discussed and patient voices understanding. Return to the office as scheduled or as needed for worsening/no improvement. Orquidea Robertson APRN.Orquidea Hoffman APRN.CNP 05/26/2024 8:29 AM Addendum - AMOXICILLIN 875 MG-POTASSIUM CLAVULANATE 125 MG TABLET - Saline nasal spray frequently while on antibiotic - follow up in 6 months Allergies As of Date: 05/26/2024 Noted Allergy Reaction CAFFEINE 02/16/2014 5 - Intolerance Date Reviewed: (more content not included)... Normal [facility] Ovi 05-05-2024 JANAE Telephone ([place]) TRICIA GRANADOS ([id number]) 1940 F Date Time Provider Department 05/05/24 [facility] During your visit today, we recorded the following information about you: Gregoria Anderson, RN 05/05/2024 4:33 PM Signed Pt called in and reports she started 2 new heart medications in February Amlodipine and Hydralazine, and she increased her Metoprolol. She said the Origination Specialist discontinued her Diltiazem. She though maybe these medication had given her diarrhea, but her Origination Specialist didn't think so and told her to try Metamucil to thicken her BMs up, but the call PCP first. Pt said she was in to see PCP recently on 04/28/24 and she didn't have the diarrhea then, but right after it started. Pt states she got the flu and the stomach flu and the pharmacy told her to take Tums and jose gabriella for upset stomach. Pt reports she only has diarrhea in the morning. She will have one large one, then think she is done and have to go back like two more times. I asked if she had any more through out the day and she said no, but her stomach would feel crampy and she would take the Tums and jose gabriella for that. She states her BM is orange and is the food she ate from the night before. She reports it's watery, but has some substance to it and squirts out. She said she had 3 tablets of Imodium and she took those and those days she didn't have diarrhea. Please call and advise on if Pt should take Metamucil, or if there is something else he would recommend. Rosalino Carmona MD 05/05/2024 4:47 PM Signed Avoid dairy. May not be med related. If continues, needs seen Cindy Aguiar MA 05/05/2024 4:50 PM Signed Patient informed and verbalized understanding. Cindy Aguiar MA Allergies As of Date: 05/05/2024 Noted Allergy Reaction CAFFEINE 02/16/2014 5 - Intolerance Date Reviewed: 04/28/2024 Reviewed by: Cindy Aguiar MA - Fully Assessed Reason for Visit: Patient Update [1234] Patient Question [5327] Prescriptions as of 05/05/2024 - amLODIPine (NORVASC) 10 mg tablet Take 1 tablet by mouth every afternoon. - metoprolol succinate ER (TOPROL XL) 25 mg 24 hr tablet Take 2 tablets by mouth two times a day. - sertraline (ZOLOFT) 50 mg tablet Take 1 tablet by mouth once daily. Take 1/2 tab once a day orally for one week then 1 tab once a day - hydrALAZINE (APRESOLINE) 50 mg tablet Take 1 tablet by mouth three times a day. For blood pressure - losartan (COZAAR) 100 mg tablet Take 1 tablet by mouth once daily. - apixaban (ELIQUIS) 5 mg tab(s) Take 5 mg by mouth two times a day. Problem List As Of Date 05/05/2024 Noted Resolved Paroxysmal atrial fibrillation (HCC) [I48.0] 02/06/2018 Hypertension [I10] 11/15/2011 Chronic anticoagulation [Z79.01] 02/15/2018 Anxiety [F41.9] 02/15/2018 LBBB (left bundle branch block) [I44.7] 11/21/2018 Pain in both knees [M25.561, M25.562] 12/03/2018 CKD (chronic kidney disease) stage 3, GFR 30-59*03/08/2021 Encounter Status:Closed by CINDY AGUIAR on 05/05/[address] [facility] CNOVon 04-28-2024 CNOV Office Visit (FAMPWS ) TRICIA GRANADOS ([id number]) 1940 F Date Time Provider Department 04/28/24 2:40 PM [facility] During your visit today, we recorded the following information about you: Pulse Blood pressure Weight Height 65/minute 166/60 89.8 kg 1.676 m Rosalino Carmona MD 04/28/2024 3:01 PM Signed Patient presents with: Follow Up HPI: Patient presents today for office visit for 3 month follow up. HTN: Continues Losartan 100 mg daily Hydralazine 50 mg TID Amlodipine 10 mg daily recently added per Cardiology. Has been monitoring her BP more recently. Brought her home cuff for validation. Manual read 166/65 Machine 173/68 Systolic is about 7 points higher on machine. Her home bp's are usually in the 130's at home. Dystolic was pretty accurate. Denies chest pain. Some SOB with exertion. Denies palpitations and syncope. Denies headaches and dizziness. Some edema to ankles. Elevates them often. Sees Cardiology. Last seen in February. Hx of atrial fibrillation Continues Metoprolol 50 mg BID. Increased to BID recently. No longer on Cartia. Continued on Eliquis 5 mg BID. No bleeding or bruising concerns. Cardiology thinks her BP is anxiety related. On xanax in past. Has not taken in over a year. MEDICATIONS: Current Outpatient Medications Medication Sig amLODIPine (NORVASC) 10 mg tablet Take 1 tablet by mouth every afternoon. hydrALAZINE (APRESOLINE) 50 mg tablet Take 1 tablet by mouth three times a day. For blood pressure losartan (COZAAR) 100 mg tablet Take 1 tablet by mouth once daily. metoprolol succinate ER (TOPROL XL) 25 mg 24 hr tablet Take 50 mg by mouth once daily. apixaban (ELIQUIS) 5 mg tab(s) Take 5 mg by mouth two times a day. ALPRAZolam (XANAX) 0.5 mg tablet Taking as needed (Patient not taking: Reported on 01/24/2024) CARTIA XT 180 mg 24 hr capsule Take 180 mg by mouth once daily. (Patient not taking: Reported on 04/28/2024) No current facility-administered medications for this visit. ALLERGIES: ALLERGIES Allergen Reactions Caffeine Intolerance PAST MEDICAL HISTORY Diagnosis Date Anxiety Atrial fibrillation (HCC) HTN (hypertension) Seborrheic keratosis right ear PAST SURGICAL HISTORY Procedure Laterality Date HYSTERECTOMY 1969' bleediing issues. no malignancy LAPAROSCOPIC CHOLECYSTECTOMY 01/11/1995 REMV CATARACT EXTRACAP,INSERT LENS Right 12/03/2023 REMV CATARACT EXTRACAP,INSERT LENS Left 12/12/2023 FAMILY HISTORY Problem Relation Age of Onset Hypertension Mother other (chf) Mother Stroke Father Ischemic Heart Disease Sister Social History Tobacco Use Smoking status: Former Smokeless tobacco: Never Vaping Use Vaping status: Never Used Substance Use Topics Alcohol use: No Drug use: No Reviewed current medications, allergies, past medical history, surgical history, family history and social history today. REVIEW OF SYSTEMS All other reviewed and negative other than HPI. HEALTH MAINTENANCE: Reviewed health maintenance issues today and recommended the following in detail. Depression Screening Never done RSV Vaccine(1 - 1-dose 75+ series) Never done Influenza Vaccine(1) due on 12/22/2023 Covid-19 Vaccine() due on 12/22/2023 Advance Directive Discussion- daughter is her surrogate. VITALS: BP 166/60 Pulse 65 Ht 167.6 cm (5' 6") Wt 89.8 kg (198 lb) SpO2 99% BMI 31.96 kg/m? Last 4 Encounter Wt Readings: Date: Wt: 01/24/2024 0 kg () 12/27/2023 96.2 kg (212 lb) 10/18/2022 93.9 kg (207 lb) 04/18/2022 95.5 kg (210 lb 9.6 oz) PHYSICAL EXAMINATION: General appearance: Well appearing, alert, in no acute distress, well-hydrated, well nourished. Skin: Skin color, texture, turgor normal, no suspicious rashes or lesions Head: Normocephalic, no masses, lesions, tenderness or abnormalities Lungs: Lungs clear to auscultation. No wheezing, rhonchi, rales Heart: RRR without murmur, gallop, or rubs. No ectopy Abdomen: Normal abdominal exam, Abdomen soft, non-tender. Bowel sounds normal. No masses, organomegaly Extremities: No deformities, edema, skin discoloration, clubbing or cyanosis. Good capillary refill. Musculoskeletal: No joint swelling, deformity, or tenderness ASSESSMENT/PLAN: 1. Paroxysmal atrial fibrillation (HCC) - ICD9: 427.31, ICD10: I48.0 (primary diagnosis) - heart rate is good. Continue meds. 2. Primary hypertension - ICD9: 401.9, ICD10: I10 - Home blood pressure readings controlled - Continue current medications 3. Stage 3a chronic kidney disease (HCC) - ICD9: 585.3, ICD10: N18.31 - stable. 4. Chronic anticoagulation - ICD9: V58.61, ICD10: Z79.01 - continue meds. 5. Anxiety - ICD9: 300.00, ICD10: F41.9 - start zoloft. Discussed risks and benefits of new medication with the patient. Advised them to call if any side effects or questio (more content not included)... Normal [facility]vi [facility]28[facility] TRICIA GRANADOS ([id number]) 1940 F Date Time Provider Department 04/28/24 ROSALINO CARMONA During your visit today, we recorded the following information about you: Britney Rolon, FERCHO 04/28/2024 5:06 PM Signed Pt reports she read the information on the sertraline 50 mg, and is not at all comfortable with it. States one of the side effects is nose bleeds and she recently had to have her nose cauterized from a nose bleed, and does not want to go through that again. Pt states she'd rather live with her anxiety than the side effects of this medication. Reports the heart doctor thought part of her elevated BP problem was her anxiety- which is why she was considering medication in the first place. Asking if she still needs to come to the f/u appt in one month, which was scheduled to f/u on the sertraline. Pt states she is not going to take the sertraline. Please advise pt. Rosalino Carmona MD 04/28/2024 5:12 PM Signed That is not a significant side effect. The most common side effect of any medicine is none. That is just listed because someone during the med trials not suprisingly had nose bleeds. That is the danger of reading side effect profiles without having pharmacological background to understand what they mean. Gregoria Anderson RN 04/29/2024 9:18 AM Signed Pt called and is notified of providers message and instructions. Pt voices understanding. I talked with her and she is going to try the medication and will let provider know how it is going when she comes in for her appointment. Gregoria Anderson RN Allergies As of Date: 04/28/2024 Noted Allergy Reaction CAFFEINE 02/16/2014 5 - Intolerance Date Reviewed: 04/28/2024 Reviewed by: iCndy Aguiar MA - Fully Assessed Reason for Visit: Medication Problem [65] Prescriptions as of 04/29/2024 - amLODIPine (NORVASC) 10 mg tablet Take 1 tablet by mouth every afternoon. - metoprolol succinate ER (TOPROL XL) 25 mg 24 hr tablet Take 2 tablets by mouth two times a day. - sertraline (ZOLOFT) 50 mg tablet Take 1 tablet by mouth once daily. Take 1/2 tab once a day orally for one week then 1 tab once a day - hydrALAZINE (APRESOLINE) 50 mg tablet Take 1 tablet by mouth three times a day. For blood pressure - losartan (COZAAR) 100 mg tablet Take 1 tablet by mouth once daily. - apixaban (ELIQUIS) 5 mg tab(s) Take 5 mg by mouth two times a day. Problem List As Of Date 04/28/2024 Noted Resolved Paroxysmal atrial fibrillation (HCC) [I48.0] 02/06/2018 Hypertension [I10] 11/15/2011 Chronic anticoagulation [Z79.01] 02/15/2018 Anxiety [F41.9] 02/15/2018 LBBB (left bundle branch block) [I44.7] 11/21/2018 Pain in both knees [M25.561, M25.562] 12/03/2018 CKD (chronic kidney disease) stage 3, GFR 30-59*03/08/2021 Encounter Status:Closed by GREGORIA ANDERSON on 04/29/[address] [facility] BI MAMMO BILATERAL SCREENING TOMOSYNTHESISon 04-10-2024 BI MAMMO BILATERAL SCREENING TOMOSYNTHESIS Interpreted By: Renard Allen, STUDY: BI MAMMO BILATERAL SCREENING TOMOSYNTHESIS; 04/10/2024 8:47 am ACCESSION NUMBER(S): [id number] ORDERING CLINICIAN: ROSALINO CARMONA INDICATION: Screening. ,Z12.31 Encounter for screening mammogram for malignant neoplasm of breast COMPARISON: 04/03/2022, 04/04/2023 FINDINGS: 2D and tomosynthesis images were reviewed at 1 mm slice thickness. Density: The breasts are almost entirely fatty. No suspicious masses or calcifications are identified. Dystrophic calcifications are present in both breasts. CAD was utilized. IMPRESSION: No mammographic evidence of malignancy. BI-RADS CATEGORY: BI-RADS Category: 2 Benign. Recommendation: Annual Screening. Recommended Date: 1 Year. Laterality: Bilateral. For any future breast imaging appointments, please call [phone] ([phone]). MACRO: None Signed by: Renard Allen 04/10/2024 9:21 AM Dictation workstation: [id number] [facility] Ovi 04-10-2024 [facility] TRICIA GRANADOS ([id number]) 1940 F Date Time Provider Department 04/10/24 ROSALINO CARMONA [facility] During your visit today, we recorded the following information about you: Harmeet Carmona LPN 04/10/2024 10:40 AM Signed See mammo results: Scan on 04/10/2024 9:25 AM by Provider, ILEANA ArmendarizC: Mammography Rosalino Carmona MD 04/10/2024 10:58 AM Signed mammogram Allergies As of Date: 04/10/2024 Noted Allergy Reaction CAFFEINE 02/16/2014 5 - Intolerance Date Reviewed: 01/24/2024 Reviewed by: Orquidea Robertson APRN.[facility] - Fully Assessed Reason for Visit: Results [95] Prescriptions as of 04/10/2024 - hydrOXYzine HCl (ATARAX) 25 mg tablet Take 1 tablet by mouth three times a day as needed for itching/rash. For anxiety - hydrALAZINE (APRESOLINE) 50 mg tablet Take 1 tablet by mouth three times a day. For blood pressure - losartan (COZAAR) 100 mg tablet Take 1 tablet by mouth once daily. - metoprolol succinate ER (TOPROL XL) 25 mg 24 hr tablet Take 50 mg by mouth once daily. - ALPRAZolam (XANAX) 0.5 mg tablet Taking as needed - CARTIA XT 180 mg 24 hr capsule Take 180 mg by mouth once daily. - apixaban (ELIQUIS) 5 mg tab(s) Take 5 mg by mouth two times a day. Problem List As Of Date 04/10/2024 Noted Resolved Paroxysmal atrial fibrillation (HCC) [I48.0] 02/06/2018 Hypertension [I10] 11/15/2011 Chronic anticoagulation [Z79.01] 02/15/2018 Anxiety [F41.9] 02/15/2018 LBBB (left bundle branch block) [I44.7] 11/21/2018 Pain in both knees [M25.561, M25.562] 12/03/2018 CKD (chronic kidney disease) stage 3, GFR 30-59*03/08/2021 Encounter Status:Closed by ROSALINO CARMONA on 04/10/24 Normal [facility] DBT Breast - bilateralon No mammographic evidence of malignancy. BI-RADS CATEGORY: BI-RADS Category: 2 Benign. Recommendation: Annual Screening. Recommended Date: 1 Year. Laterality: Bilateral. For any future breast imaging appointments, please call [phone]). MACRO: None Signed by: Renard Allen 04/10/2024 9:21 AM Dictation workstation: [id number] [facility] Interpreted By: Renard Allen, STUDY: BI MAMMO BILATERAL SCREENING TOMOSYNTHESIS; 04/10/2024 8:47 am ACCESSION NUMBER(S): [id number] ORDERING CLINICIAN: ROSALINO CARMONA INDICATION: Screening. ,Z12.31 Encounter for screening mammogram for malignant neoplasm of breast COMPARISON: 04/03/2022, 04/04/2023 FINDINGS: 2D and tomosynthesis images were reviewed at 1 mm slice thickness. Density: The breasts are almost entirely fatty. No suspicious masses or calcifications are identified. Dystrophic calcifications are present in both breasts. CAD was utilized. [facility] Renard Allen MD - 04/10/2024 Interpreted By: Renard Allen, STUDY: BI MAMMO BILATERAL SCREENING TOMOSYNTHESIS; 04/10/2024 8:47 am ACCESSION NUMBER(S): [id number] ORDERING CLINICIAN: ROSALINO CARMONA INDICATION: Screening. ,Z12.31 Encounter for screening mammogram for malignant neoplasm of breast COMPARISON: 04/03/2022, 04/04/2023 FINDINGS: 2D and tomosynthesis images were reviewed at 1 mm slice thickness. Density: The breasts are almost entirely fatty. No suspicious masses or calcifications are identified. Dystrophic calcifications are present in both breasts. CAD was utilized. IMPRESSION: No mammographic evidence of malignancy. BI-RADS CATEGORY: BI-RADS Category: 2 Benign. Recommendation: Annual Screening. Recommended Date: 1 Year. Laterality: Bilateral. For any future breast imaging appointments, please call [phone]). MACRO: None Signed by: Renard Allen 04/10/2024 9:21 AM Dictation workstation: [id number] [facility] Work Phone: Radiology Study observation (narrative) [facility] Work Phone: DBT Breast - bilateralOrdere d By: Renard Allen on 04-10-2024 [facility] Work Phone: Ovi 03-25-2024 [facility]) TRICIA GRANADOS ([id number]) 1940 F Date Time Provider Department 03/25/24 ROSALINO CARMONA [facility] During your visit today, we recorded the following information about you: Juliann Caban LPN 03/25/2024 1:19 PM Signed Patient calling she received her reminder to get mamm order. She does at [facility] in [place]. Last year was done on 04/09/2023. She wants a 3 D mamm faxed to [phone]. Pending order. Please advise Harmeet Carmona LPN 03/26/2024 4:34 PM Signed Order faxed to as requested. Sent via [employer]. Patient notified. Allergies As of Date: 03/25/2024 Noted Allergy Reaction CAFFEINE 02/16/2014 5 - Intolerance Date Reviewed: 01/24/2024 Reviewed by: Orquidea Robertson APRN.[employer] - Fully Assessed Reason for Visit: Orders [681] Primary Visit Diagnosis:Screening mammogram for breast cancer [Z12.31] Order(s):MC SCREENING rDew MALDONADO [[id number]] Order #: [id number] FUTURE Prescriptions as of 03/26/2024 - hydrOXYzine HCl (ATARAX) 25 mg tablet Take 1 tablet by mouth three times a day as needed for itching/rash. For anxiety - hydrALAZINE (APRESOLINE) 50 mg tablet Take 1 tablet by mouth three times a day. For blood pressure - losartan (COZAAR) 100 mg tablet Take 1 tablet by mouth once daily. - metoprolol succinate ER (TOPROL XL) 25 mg 24 hr tablet Take 50 mg by mouth once daily. - ALPRAZolam (XANAX) 0.5 mg tablet Taking as needed - CARTIA XT 180 mg 24 hr capsule Take 180 mg by mouth once daily. - apixaban (ELIQUIS) 5 mg tab(s) Take 5 mg by mouth two times a day. Problem List As Of Date 03/25/2024 Noted Resolved Paroxysmal atrial fibrillation (HCC) [I48.0] 02/06/2018 Hypertension [I10] 11/15/2011 Chronic anticoagulation [Z79.01] 02/15/2018 Anxiety [F41.9] 02/15/2018 LBBB (left bundle branch block) [I44.7] 11/21/2018 Pain in both knees [M25.561, M25.562] 12/03/2018 CKD (chronic kidney disease) stage 3, GFR 30-59*03/08/2021 Encounter Status:Closed by HARMEET CARMONA on 03/26/[address] [facility] Cardiology Visit Reporton Cardiology Visit Report [facility] [address] [place], [place] [address] OFFICE VISIT Date of Service: 03/10/24 MR#: [id number] Acct: [id number] Name: TRICIA GRANADOS Rep #: [id number] : 1940 Provider: SAMANTHA Pendleton Age/Sex: 83/F [place] [facility] Status: Signed HPI HPI History of Present Illness Details: Tricia Granados is an 83 year-old lady with a history of hypertension paroxysmal atrial fibrillation who returns for follow-up visit. Patient is extremely anxious at office visit today. She is concerned about hospital stay that she had last month for upper taxis. This is since resolved. She has not had any further episodes since then. She is also concerned about elevated blood pressure readings but is not aware of all of the medications that she is taking. She also does not like to have her blood pressure taken. She does not check it at home. Intake Vital Signs 03/12/23 14:52 12/22/23 04:18 03/10/24 13:49 Height 5 ft 6 in 5 ft 6 in 5 ft 6 in Weight: 203 lb BMI 32.8 BP 160/100 H Blood Pressure Location Lt brachial Position Sitting Respiration 18 Pulse Source Monitor Intake Visit Reasons: 1 Y FU Cad Librarian Required: No Is patient in pain?: No Allergies caffeine Adverse Reaction (Verified 12/22/23 00:08) Other Medications ???Medication ???Instructions ???Recorded ???Confirmed ???Type alprazolam 0.5 mg tablet (Xanax) 0.5 mg PO QHS PRN anxiety 03/12/23 03/10/24 History diltiazem HCl 180 mg 180 mg PO DAILY heart rate #90 caps 08/06/23 03/10/24 Rx capsule,extended release 24 hr (Cartia XT) metoprolol succinate 50 mg See Rx Instructions .Route 08/06/23 03/10/24 Rx tablet,extended release 24 hr .COMPLEX blood pressure #90 tabs losartan 100 mg tablet See Rx Instructions .Route 12/06/23 03/10/24 Rx .COMPLEX blood pressure #90 tabs apixaban 5 mg tablet (Eliquis) 5 mg PO BID 01/09/24 03/10/24 History hydralazine 50 mg tablet 50 mg PO TID 01/09/24 03/10/24 History Have you fallen in the past year?: No Nurse's Note: patient refused to have vitals taken [facility] Medical History (Updated 03/10/24 @ 14:19 by Demetrice SINGH, SAMANTHA) Paroxysmal A-fib Chronic anticoagulation Longstanding persistent atrial fibrillation Left bundle branch block (LBBB) Obesity Paroxysmal atrial fibrillation Essential (primary) hypertension Transient global amnesia Anxiety disorder Surgical History Hx of appendectomy H/O oophorectomy History of cholecystectomy H/O: hysterectomy Family History Father CVA (cerebral vascular accident) Mother Hypertension Heart disease CHF (congestive heart failure) Social History Smoking Status: Former smoker how long ago did patient quit smokin years age alcohol intake: never caffeine: No ROS Const Const: Negative for fatigue, weakness or headache(s) Eyes Eyes: Negative for loss of peripheral vision, transient loss of vision or change in vision ENT ENT: Positive for Nosebleed/epistaxis, balance problems and other (pt was in the ER several times in December for epistaxis); Negative for headache(s), dizziness or hearing loss Cardio Chest Pain: No Palpitations: No Edema: None Muscle aches with walking: None Resp Respiratory: Negative for SOB with activity, SOB at rest or SOB orthopnea SOB lying down GI GI: Negative nausea, vomiting or heartburn : Negative for hematuria Musc Musc: Positive for muscle weakness, joint pain and balance problems; Negative for muscle aches/ myalgia Neuro Neuro: Negative for dizziness, headache(s) or weakness Endo Endo: Negative for fatigue Psych Psych: Positive for anxiety Cardiology Exam Const Appearance: cooperative, no acute distress and well developed Orientation: alert, awake and oriented x3 Head Head: normal to inspection Ears: hearing grossly normal bilaterally Nose: external nose normal Face and Sinus: face symmetric Mouth: oral mucosae normal, lip normal and moist mucous membranes Eyes General: appearance normal, both eyes and all related structures Eyelids: eyelids normal Conjunctivae: conjunctivae normal Pupils: PERRL EOM: EOM intact bilaterally Neck Neck: normal visual inspection and trachea midline; Negative no JVD Carotids: Negative bruit Chest Chest inspection: normal inspection of the chest Auscultation: Bilateral: Clear to Auscultation Cardio Palpation: normal PMI Rate: regular rate Rhythm: regular rhythm Heart sounds: S1 normal and S2 normal; Negative rub, gallop or murmur GI GI: soft, no hepatosplenomegaly and bowel sounds present Michael (more content not included)... Normal [facility] CNOVon 03-02-2024 CNOV Office Visit (ORTHWS ) TRICIA GRANADOS ([id number]) 1940 F Date Time Provider Department 03/02/24 8:30 AM BREANNA CANSECO During your visit today, we recorded the following information about you: Bernadine Hook LPN 03/02/2024 9:26 AM Signed AMB ROOMING INTAKE FLOWSHEET DATA Pain Pain Level: 2 Pain Location: Knee-Right Description: Sore Duration Amount of Time: 1 Duration Units: Days Frequency: Continuous Breanna Canseco PA-C 03/02/2024 9:26 AM Signed Large Joint Arthro/Inj: bilateral knee joints Informed Consent Consent Obtained: Verbal [place] Protocol A moment to CARE was completed. SIGN IN Sign in communication not applicable due to emergent procedure. Personnel directly involved with the procedure wore the appropriate PPE. Special Equipment: N/A Patient/Surrogate Stated/Verified: Patient name, Date of , Relevant allergies and Intended procedure TIME OUT Intended patient and procedure match the source document(s). Consent documented and matches the intended procedure. Relevant labs, photos, and/or imaging studies have been reviewed. Correct side/site marked and visible. Medications required for procedure verified. No fire risk assessment and interventions applicable. No implant(s) inserted. 03/02/2024 9:26 AM The procedure site was prepped in the usual sterile fashion. Site: bilateral knee joints Medications (Right): 6 mg betamethasone acetate-betamethasone sodium phosphate 6 mg/mL Medications (Left): 6 mg betamethasone acetate-betamethasone sodium phosphate 6 mg/mL Anesthetics (Right): 5 mL lidocaine (PF) 10 mg/mL (1 %) Anesthetics (Left): 5 mL lidocaine (PF) 10 mg/mL (1 %) Outcome: Tolerated well, no immediate complications Post-injection instructions were reviewed with the patient and the patient voiced understanding of these instructions. SIGN OUT No specimen collected. No instruments, equipment or retained foreign bodies applicable. Post-procedure follow-up management communicated and Plan of Care Visit completed when applicable Referring Provider: BREANNA CANSECO [[id number]] Allergies As of Date: 03/02/2024 Noted Allergy Reaction CAFFEINE 02/16/2014 5 - Intolerance Date Reviewed: 01/24/2024 Reviewed by: Orquidea Robertson APRN.[employer] - Fully Assessed Primary Visit Diagnosis:Primary osteoarthritis of both knees [M17.0] Order(s):Large Joint Arthro/Inj: bilateral knee joints [[id number]] Order #: [id number] [] betamethasone acetate-betamethasone sodium phosphate 6 mg injection (CELESTONE)Disp: Rfl: [] betamethasone acetate-betamethasone sodium phosphate 6 mg injection (CELESTONE)Disp: Rfl: [] lidocaine (PF) 10 mg/mL (1 %) 5 mL injection (XYLOCAINE)Disp: Rfl: [] lidocaine (PF) 10 mg/mL (1 %) 5 mL injection (XYLOCAINE)Disp: Rfl: Prescriptions as of 03/02/2024 - hydrOXYzine HCl (ATARAX) 25 mg tablet Take 1 tablet by mouth three times a day as needed for itching/rash. For anxiety - hydrALAZINE (APRESOLINE) 50 mg tablet Take 1 tablet by mouth three times a day. For blood pressure - losartan (COZAAR) 100 mg tablet Take 1 tablet by mouth once daily. - metoprolol succinate ER (TOPROL XL) 25 mg 24 hr tablet Take 50 mg by mouth once daily. - ALPRAZolam (XANAX) 0.5 mg tablet Taking as needed - CARTIA XT 180 mg 24 hr capsule Take 180 mg by mouth once daily. - apixaban (ELIQUIS) 5 mg tab(s) Take 5 mg by mouth two times a day. Problem List As Of Date 03/02/2024 Noted Resolved Paroxysmal atrial fibrillation (HCC) [I48.0] 02/06/2018 Hypertension [I10] 11/15/2011 Chronic anticoagulation [Z79.01] 02/15/2018 Anxiety [F41.9] 02/15/2018 LBBB (left bundle branch block) [I44.7] 11/21/2018 Pain in both knees [M25.561, M25.562] 12/03/2018 CKD (chronic kidney disease) stage 3, GFR 30-59*03/08/2021 Prescriptions ordered this encounter Disp Refills Start End BETAMETHASONE ACETATE AND SODIUM KJ* 03/02/2024 03/02/2024 Route: Inj-ORTHO BETAMETHASONE ACETATE AND SODIUM KJ* 03/02/2024 03/02/2024 Route: Inj-ORTHO LIDOCAINE (PF) 10 MG/ML (1 %) INJECT* 03/02/2024 03/02/2024 Route: Inj-ORTHO LIDOCAINE (PF) 10 MG/ML (1 %) INJECT* 03/02/2024 03/02/2024 Route: Inj-ORTHO Encounter Status:Closed by BREANNA CANSECO on 03/02/[address] [facility] Large Joint Arthro/Inj: bila teral knee jointson 03-02-2024 Breanna Canseco PA -C 03/02/2024 9:26 AM Large Joint Arthro/Inj: bilateral knee joints Informed Consent Consent Obtained: Verbal [place] Protocol A moment to CARE was completed. SIGN IN Sign in communication not applicable due to emergent procedure. Personnel directly involved with the procedure wore the appropriate PPE. Special Equipment: N/A Patient/Surrogate Stated/Verified: Patient name, Date of , Relevant allergies and Intended procedure TIME OUT Intended patient and procedure match the source document(s). Consent documented and matches the intended procedure. Relevant labs, photos, and/or imaging studies have been reviewed. Correct side/site marked and visible. Medications required for procedure verified. No fire risk assessment and interventions applicable. No implant(s) inserted. 03/02/2024 9:26 AM The procedure site was prepped in the usual sterile fashion. Site: bilateral knee joints Medications (Right): 6 mg betamethasone acetate-betamethasone sodium phosphate 6 mg/mL Medications (Left): 6 mg betamethasone acetate-betamethasone sodium phosphate 6 mg/mL Anesthetics (Right): 5 mL lidocaine (PF) 10 mg/mL (1 %) Anesthetics (Left): 5 mL lidocaine (PF) 10 mg/mL (1 %) Outcome: Tolerated well, no immediate complications Post-injection instructions were reviewed with the patient and the patient voiced understanding of these instructions. SIGN OUT No specimen collected. No instruments, equipment or retained foreign bodies applicable. Post-procedure follow-up management communicated and Plan of Care Visit completed when applicable [facility] XR KNEE 4V AP/PA/LAT/MERCH B ILon 12-26-2023 XR KNEE 4V AP/PA/LAT/MERCH OSBALDO * * *Final Report* * * DATE OF EXAM: Dec 26 2023 8:15AM NINO 5618 - XR KNEE 4V AP/PA/LAT/MERCH OSBALDO / PROCEDURE REASON: multiple diagnoses * * * * Physician Interpretation * * * * EXAM: XR KNEE 4V AP/PA/LAT/MERCH OSBALDO PATIENT HISTORY: Acute pain of both knees Acute pain of both knees TECHNIQUE: Standing AP, PA, lateral, and merchant view radiograph of the bilateral knees COMPARISON: Radiograph 11/25/2023 FINDINGS: RIGHT No fracture or dislocation. Mild medial compartment predominant osteoarthrosis. Small suprapatellar joint effusion. Enthesophyte and superior pole of patella. No radiopaque foreign body. LEFT No acute fracture or dislocation. Joint space narrowing of the medial compartment. No joint effusion. Small enthesophyte superior pole patella. No radiopaque foreign body. IMPRESSION: No acute fracture or dislocation of the knees. Mild degenerative change, as described. Refrigerator Repairman: SKYLER Transcribe Date/Time: Dec 26 2023 1:07P Dictated by : VAMSI NGUYEN MD This examination was interpreted and the report reviewed and electronically signed by: VAMSI NGUYEN MD on Dec 26 2023 1:17PM EST [id number] [facility] XR Knee - bilateral 4 Viewso n 12-26-2023 IMPRESSION: No acute fracture or dislocation of the knees. Mild degenerative change, as described. Refrigerator Repairman: SKYLER Transcribe Date/Time: Dec 26 2023 1:07P Dictated by : VAMSI NGUYEN MD This examination was interpreted and the report reviewed and electronically signed by: VAMSI NGUYEN MD on Dec 26 2023 1:17PM EST [facility] * * *Final Report* * * DATE OF EXAM: Dec 26 2023 8:15AM NINO 5618 - XR KNEE 4V AP/PA/LAT/MERCH OSBALDO / PROCEDURE REASON: multiple diagnoses * * * * Physician Interpretation * * * * EXAM: XR KNEE 4V AP/PA/LAT/MERCH SOBALDO PATIENT HISTORY: Acute pain of both knees Acute pain of both knees TECHNIQUE: Standing AP, PA, lateral, and merchant view radiograph of the bilateral knees COMPARISON: Radiograph 11/25/2023 FINDINGS: RIGHT No fracture or dislocation. Mild medial compartment predominant osteoarthrosis. Small suprapatellar joint effusion. Enthesophyte and superior pole of patella. No radiopaque foreign body. LEFT No acute fracture or dislocation. Joint space narrowing of the medial compartment. No joint effusion. Small enthesophyte superior pole patella. No radiopaque foreign body. [facility] * * *Final Report* * * DATE OF EXAM: Dec 26 2023 8:15AM NINO 5618 - XR KNEE 4V AP/PA/LAT/MERCH OSBALDO / PROCEDURE REASON: multiple diagnoses * * * * Physician Interpretation * * * * EXAM: XR KNEE 4V AP/PA/LAT/MERCH OSBALDO PATIENT HISTORY: Acute pain of both knees Acute pain of both knees TECHNIQUE: Standing AP, PA, lateral, and merchant view radiograph of the bilateral knees COMPARISON: Radiograph 11/25/2023 FINDINGS: RIGHT No fracture or dislocation. Mild medial compartment predominant osteoarthrosis. Small suprapatellar joint effusion. Enthesophyte and superior pole of patella. No radiopaque foreign body. LEFT No acute fracture or dislocation. Joint space narrowing of the medial compartment. No joint effusion. Small enthesophyte superior pole patella. No radiopaque foreign body. IMPRESSION IMPRESSION: No acute fracture or dislocation of the knees. Mild degenerative change, as described. Refrigerator Repairman: PSCB Transcribe Date/Time: Dec 26 2023 1:07P Dictated by : VAMSI NGUYEN MD This examination was interpreted and the report reviewed and electronically signed by: VAMSI NGUYEN MD on Dec 26 2023 1:17PM EST [facility] Radiology Study observation (narrative) [facility] XR Knee - bilateral 4 ViewsO rdered By: [facility] Provider on 12-26-2023 [facility] Large Joint Arthro/Inj: bishnu gregory knee jointson 11-25-2023 Breanna Canseco PA -C 11/25/2023 8:39 AM Large Joint Arthro/Inj: bilateral knee joints Informed Consent Consent Obtained: Verbal [place] Protocol A moment to CARE was completed. SIGN IN Sign in communication not applicable due to emergent procedure. Personnel directly involved with the procedure wore the appropriate PPE. Special Equipment: N/A Patient/Surrogate Stated/Verified: Patient name, Date of , Relevant allergies and Intended procedure TIME OUT Intended patient and procedure match the source document(s). Consent documented and matches the intended procedure. Relevant labs, photos, and/or imaging studies have been reviewed. Correct side/site marked and visible. Medications required for procedure verified. No fire risk assessment and interventions applicable. No implant(s) inserted. 11/25/2023 8:39 AM The procedure site was prepped in the usual sterile fashion. Site: bilateral knee joints Medications (Right): 6 mg betamethasone acetate-betamethasone sodium phosphate 6 mg/mL Medications (Left): 6 mg betamethasone acetate-betamethasone sodium phosphate 6 mg/mL Anesthetics (Right): 5 mL lidocaine (PF) 10 mg/mL (1 %) Anesthetics (Left): 5 mL lidocaine (PF) 10 mg/mL (1 %) Outcome: Tolerated well, no immediate complications Post-injection instructions were reviewed with the patient and the patient voiced understanding of these instructions. SIGN OUT No instruments, equipment or retained foreign bodies applicable. [facility] Large Joint Arthro/Inj: bila teral knee jointson 08-19-2023 Breanna Canseco PA -C 08/19/2023 10:12 AM Large Joint Arthro/Inj: bilateral knee joints Informed Consent Consent Obtained: Verbal [place] Protocol A moment to CARE was completed. SIGN IN Sign in communication not applicable due to emergent procedure. Personnel directly involved with the procedure wore the appropriate PPE. Special Equipment: N/A Patient/Surrogate Stated/Verified: Patient name, Date of , Relevant allergies and Intended procedure TIME OUT Intended patient and procedure match the source document(s). Consent documented and matches the intended procedure. Relevant labs, photos, and/or imaging studies have been reviewed. Correct side/site marked and visible. Medications required for procedure verified. No fire risk assessment and interventions applicable. No implant(s) inserted. 08/19/2023 10:11 AM The procedure site was prepped in the usual sterile fashion. Site: bilateral knee joints Medications (Right): 6 mg betamethasone acetate-betamethasone sodium phosphate 6 mg/mL Medications (Left): 6 mg betamethasone acetate-betamethasone sodium phosphate 6 mg/mL Anesthetics (Right): 5 mL lidocaine (PF) 10 mg/mL (1 %) Anesthetics (Left): 5 mL lidocaine (PF) 10 mg/mL (1 %) Outcome: Tolerated well, no immediate complications Post-injection instructions were reviewed with the patient and the patient voiced understanding of these instructions. SIGN OUT No instruments, equipment or retained foreign bodies applicable. [facility] DIGITAL MAMM SCREENING W/ TO [facility]ace 04-03-2022 DIGITAL MAMM SCREENING W/ JOEL Patient Name: TRICIA GRANADOS STUDY: DIGITAL MAMM SCREENING W/ JOEL; 04/03/2022 9:15 am ACCESSION NUMBER(S): [id number] ORDERING CLINICIAN: ROSALINO CARMONA INDICATION: Screening. COMPARISON: 02/16/2020, 02/17/2021 FINDINGS: 2D and tomosynthesis images were reviewed at 1 mm slice thickness. The breast tissue is almost entirely fatty. No suspicious masses or calcifications are identified. Scattered dystrophic calcifications are present. IMPRESSION: No mammographic evidence of malignancy. BI-RADS CATEGORY: Category: 1 - Negative. Recommendation: 1 Year Screening. For any future breast imaging appointments, please call [phone] ([phone]). Electronically signed by: RENARD ALLEN MD [facility] No Panel Informationon 12-18 [facility] XR Knee - bilateral 4 Viewso n 10-15-2021 IMPRESSION: Stable degenerative changes as detailed in report. Refrigerator Repairman: PSCB Transcribe Date/Time: Oct 15 2021 9:25A Dictated by : JULIANN LEON MD This examination was interpreted and the report reviewed and electronically signed by: JULIANN LEON MD on Oct 15 2021 9:30AM EST [email or web address] E_DIVISION OF RADIOLOGY * * *Final Report* * * DATE OF EXAM: Oct 14 2021 9:06AM WOX 5618 - XR KNEE 4V AP/PA/LAT/MERCH OSBALDO / PROCEDURE REASON: multiple diagnoses * * * * Physician Interpretation * * * * EXAMINATION: XR KNEE 4V AP/PA/LAT/MERCH OSBALDO HISTORY: Chronic and diffuse bilateral knee pain increasing over time. Negative trauma. Chronic pain of both knees. TECHNIQUE: XR KNEE 4V AP/PA/LAT/MERCH OSBALDO Laterality: BILATERAL Number of different views (projections): 4 M: XB_1 COMPARISON: Comparison is made to prior knee study dated 11/14/2018 RESULT: Standing frontal radiographs of the bilateral knees with bilateral PA flexion views, sunrise views and bilateral lateral views show no acute osseous or articular process. There is osteopenia and pancompartmental degenerative change present with periarticular osteophytosis and mild narrowing of the medial tibiofemoral joint compartments bilaterally. There is intercondylar and patellar spurring with subtle narrowing of the left medial patellofemoral joint space. There is no suprapatellar joint fluid. The soft tissues are unremarkable. [email or web address]_US E_DIVISION OF RADIOLOGY Provider, [facility] - 10/15/2021 * * *Final Report* * * DATE OF EXAM: Oct 14 2021 9:06AM WOX 5618 - XR KNEE 4V AP/PA/LAT/MERCH OSBALDO / PROCEDURE REASON: multiple diagnoses * * * * Physician Interpretation * * * * EXAMINATION: XR KNEE 4V AP/PA/LAT/MERCH OSBALDO HISTORY: Chronic and diffuse bilateral knee pain increasing over time. Negative trauma. Chronic pain of both knees. TECHNIQUE: XR KNEE 4V AP/PA/LAT/MERCH OSBALDO Laterality: BILATERAL Number of different views (projections): 4 M: XB_1 COMPARISON: Comparison is made to prior knee study dated 11/14/2018 RESULT: Standing frontal radiographs of the bilateral knees with bilateral PA flexion views, sunrise views and bilateral lateral views show no acute osseous or articular process. There is osteopenia and pancompartmental degenerative change present with periarticular osteophytosis and mild narrowing of the medial tibiofemoral joint compartments bilaterally. There is intercondylar and patellar spurring with subtle narrowing of the left medial patellofemoral joint space. There is no suprapatellar joint fluid. The soft tissues are unremarkable. IMPRESSION IMPRESSION: Stable degenerative changes as detailed in report. Refrigerator Repairman: PSCB Transcribe Date/Time: Oct 15 2021 9:25A Dictated by : JULIANN LEON MD This examination was interpreted and the report reviewed and electronically signed by: JULIANN LEON MD on Oct 15 2021 9:30AM EST [facility] XR Knee - bilateral 4 ViewsO rdered By: [facility]cf Provider on 10-15-2021 [facility] XR Knee - bilateral 4 Viewso n 10-14-2021 Radiology Study observation (narrative) [facility] MA Mamm Screen w/CAD if perf ormed bilaton 01-01-2019 [place] Mamm Screen w/CAD if performed bilat Exam Date/Time: 01/01/2019 08:26 EDT Reason for Exam: SCREENING Report STUDY: Digital mammography screening; 01/01/2019 8:26 am ACCESSION NUMBER(S): [id number] ORDERING CLINICIAN: Rosalino Carmona INDICATION: Screening. COMPARISON: Comparison is made to prior digital mammograms dated 12/09/2017 and 12/06/2016 FINDINGS: CC and MLO 2D digital mammographic images of the bilateral breasts were obtained. The breast tissue is almost entirely fatty. Scattered dystrophic calcifications are present bilaterally, similar to prior studies.No discrete mass or focal asymmetry is identified. No suspicious microcalcifications or foci of architectural distortion are seen. There has been no significant change. This study was interpreted with CAD. IMPRESSION: No mammographic evidence of malignancy. BI-RADS CATEGORY: Category: 2 - Benign Finding. Recommendation: Normal Interval Follow-up, Over Age 40. Recall Interval: 12 Months. Breast Density: Fatty. FINAL REPORT Dictated: 01/01/2019 9:04 am Yossi Ledezma MD Signed (Electronic Signature): 01/01/2019 9:04 am Signed by: Yossi Ledezma MD Technologist: FADI Assessment: BI-RADS Category 2-Benign finding Recommendation: Normal interval follow-up Normal [facility] Office Visiton 02-05-2017 Documentation of current medications (procedure) Done Invalid Interpretation Code [facility] Work Phone: Fall risk assessment No Invalid Interpretation Code [facility] Work Phone: [phone] Office Visiton 01-23-2016 Dietary management education, guidance, and counseling (procedure) yes Invalid Interpretation Code [facility] Work Phone: [phone] Tobacco use CPHS Never smoker Invalid Interpretation Code [facility] Work Phone: [phone] Clinical Lists Update: Pre neon sign erector 01-20-2016 Left ventricular Ejection fraction 65 % Invalid Interpretation Code [facility] Work Phone: [phone] Clinical Lists Update: Prelo neon sign erector 05-20-2015 Alanine aminotransferase (ALT) 18 U/L Invalid Interpretation Code [facility] Work Phone: [phone] Albumin 4.3 g/dL Invalid Interpretation Code [facility] Work Phone: [phone] Alkaline phosphatase (ALP) 85 U/L Invalid Interpretation Code [facility] Work Phone: [phone] Aspartate aminotransferase (AST) 19 U/L Invalid Interpretation Code [facility] Work Phone: [phone] Bilirubin (total) 0.5 mg/dL Invalid Interpretation Code [facility] Work Phone: [phone] BUN/Creatinine Ratio 17.0 mg/mg Invalid Interpretation Code [facility] Phone: [phone] Calcium 9.4 mg/dL Invalid Interpretation Code [employer] Phone: [phone] Chloride 107 mmol/L Invalid Interpretation Code [facility] Work Phone: [phone] Cholesterol 190 mg/dL Invalid Interpretation Code [facility] Work Phone: [phone] Cholesterol to HDL Ratio 4 {ratio} Invalid Interpretation Code [facility] Work Phone: [phone] CO2 27.2 mmol/L Invalid Interpretation Code [facility] Work Phone: [phone] Creatinine 1.0 mg/dL Invalid Interpretation Code [facility] Work Phone: [phone] Erythrocyte distribution width Auto Ratio (RBC) 13.1 % Invalid Interpretation Code [facility] Work Phone: [phone] Erythrocytes (RBC) 4.37 10*6/uL Invalid Interpretation Code [facility] Work Phone: [phone] Globulin 3.3 g/dL Invalid Interpretation Code [facility] Work Phone: [phone] Glucose mass conc 103 mg/dL High [facility] Work Phone: [phone] HDL Cholesterol 52 mg/dL Invalid Interpretation Code [facility] Work Phone: [phone] Hematocrit (HCT) 40.8 % Invalid Interpretation Code [facility] Work Phone: [phone] Hemoglobin mass conc (Bld) 13.6 g/dL Invalid Interpretation Code [facility] Work Phone: [phone] LDL Cholesterol 99 mg/dL Invalid Interpretation Code [facility] Work Phone: [phone] MCH 31.2 pg High [facility] Work Phone: [phone] MCHC mass conc (RBC) 33.4 g/dL Invalid Interpretation Code [facility] Work Phone: [phone] MCV 93.4 fL Invalid Interpretation Code [facility] Work Phone: [phone] Platelets 238 10*3/mm3 Invalid Interpretation Code [facility] Work Phone: [phone] PMV by Khushi 10.6 fL Invalid Interpretation Code [facility] Work Phone: [phone] Potassium molar conc 4.4 mmol/L Invalid Interpretation Code [facility] Work Phone: [phone] Protein 7.6 g/dL Invalid Interpretation Code [facility] Work Phone: [phone] Sodium 140 mmol/L Invalid Interpretation Code [facility] Work Phone: [phone] Triglyceride 195 mg/dL High [facility] Work Phone: [phone] Urea nitrogen 17 mg/dL Invalid Interpretation Code [facility] Work Phone: [phone] very low density lipoproteins 39 mg/dL Invalid Interpretation Code [facility] Work Phone: [phone] WBC (Leukocytes) 9.1 10*3/uL Invalid Interpretation Code [facility] Work Phone: [phone] Office Visiton 02-15-2015 cardiac risk group B Invalid Interpretation Code [facility] Work Phone: [phone] General cardiovascular disease 10Y risk [#] [place].D[place]Agost[place] o 15 % Invalid Interpretation Code [facility] Work Phone: [phone] Lab Report: Drawn @ [facility] 04-10-2013 MCHC mass conc (RBC) 34.1 % Invalid Interpretation Code [facility] Work Phone: [phone] Lab Report: Ordered by Dr. Muriel joseph 04-10-2013 Albumin/Globulin Ratio 2.3 {ratio} Invalid Interpretation Code [facility] Work Phone: [phone] Clinical Lists Update: Prelo neon sign erector 02-25-2012 Anion gap 11 mmol/L Invalid Interpretation Code [facility] Work Phone: [phone] Thyroid stimulating hormone (TSH) 9.57 u[iU]/mL High [facility] Work Phone: [phone] Panel Information [facility] Vital Signs Date Time Vital Sign Value Performing Clinician Facility 01-08-2025 10:09-0400 Body height 167.[address] Rosalino Carmona MD Work Phone: [phone] [place] [address] 01-08-2025 10:09-0400 Diastolic blood pressure 50 mm[Hg] Dr. Rosalino Carmona MD Work Phone: [phone] [place] [address] 01-08-2025 10:09-0400 Systolic blood pressure 136 mm[Hg] Dr. Rosalino Carmona MD Work Phone: [phone] [place] [address] 01-08-2025 10:06-0400 Body mass index (BMI) [Ratio] 29.8 kg/m2 Dr. Rosalino Carmona MD Work Phone: [phone] [place] [address] 01-08-2025 10:06-0400 Body weight 83.[address] Rosalino Carmona MD Work Phone: [phone] [place] [address] 01-08-2025 10:06-0400 Heart rate 62 /min Dr. Rosalino Carmona MD Work Phone: [phone] [place] [address] 01-08-2025 10:06-0400 Respiratory rate 18 /min Dr. Rosalino Carmona MD Work Phone: [facility] 01-08-2025 10:06-0400 SaO2% (BldA) [Mass fraction] 97 % Dr. Rosalino Carmona MD Work Phone: [facility] 12-02-2024 08:24-0400 Body mass index (BMI) [Ratio] 30.41 kg/m2 Rosalino Carmona MD Work Phone: [facility] 12-02-2024 08:24-0400 Body weight 85.46 kg Rosalino Carmona MD Work Phone: [facility] 12-02-2024 08:24-0400 Diastolic blood pressure 60 mm[Hg] Rosalino Carmona MD Work Phone: [facility] 12-02-2024 08:24-0400 Heart rate 47 /min Rosalino Carmona MD Work Phone: [facility] 12-02-2024 08:24-0400 SaO2% (BldA) [Mass fraction] 97 % Rosalino Carmona MD Work Phone: [facility] 12-02-2024 08:24-0400 Systolic blood pressure 110 mm[Hg] Rosalino Carmona MD Work Phone: [facility] 05-26-2024 08:23-0500 Diastolic blood pressure 58 mm[Hg] Orquidea Suppan EMPLOYEE BENEFITS SPECIALIST.[employer] SPECIALIST Work Phone: [facility] 05-26-2024 08:23-0500 Systolic blood pressure 130 mm[Hg] Orquidea Suppan EMPLOYEE BENEFITS SPECIALIST.CUST[employer]S IMPORT SPECIALIST Work Phone: [facility] 05-26-2024 07:59-0500 Body height 167.6 cm Orquidea Suppan EMPLOYEE BENEFITS SPECIALIST.CUSTOMS IMPORT SPECIALIST Work Phone: [facility] 05-26-2024 07:59-0500 Body mass index (BMI) [Ratio] 31.47 kg/m2 Oqruidea Suppan EMPLOYEE BENEFITS SPECIALIST.CUSTOMS IMPORT SPECIALIST Work Phone: [facility] 05-26-2024 07:59-0500 Body weight 88.45 kg Orquidea Suppan EMPLOYEE BENEFITS SPECIALIST.CUSTOMS IMPORT SPECIALIST Work Phone: [facility] 05-26-2024 07:59-0500 Heart rate 75 /min Orquidea Suppan EMPLOYEE BENEFITS SPECIALIST.C[employer]S IMPORT SPECIALIST Work Phone: [facility] 04-28-2024 14:34-0500 Body height 167.6 cm Rosalino Carmona MD Work Phone: [facility] 04-28-2024 14:34-0500 Body mass index (BMI) [Ratio] 31.96 kg/m2 Rosalino Carmona MD Work Phone: [facility] 04-28-2024 14:34-0500 Body weight 89.81 kg Rosalino Carmona MD Work Phone: [facility] 04-28-2024 14:34-0500 Diastolic blood pressure 60 mm[Hg] Rosalino Carmona MD Work Phone: [facility] 04-28-2024 14:34-0500 Heart rate 65 /min Rosalino Carmona MD Work Phone: [facility] 04-28-2024 14:34-0500 SaO2% (BldA) [Mass fraction] 99 % Rosalino Carmona MD Work Phone: [facility] 04-28-2024 14:34-0500 Systolic blood pressure 166 mm[Hg] Rosalino Carmona MD Work Phone: [facility] 04-10-2024 08:48-0500 Body height 167.6 cm [facility] 04-10-2024 08:48-0500 Body mass index (BMI) [Ratio] 30.99 kg/m2 [facility] 04-10-2024 08:48-0500 Body weight 87.09 kg [facility] 01-24-2024 07:50-0400 Diastolic blood pressure 56 mm[Hg] Orquidea Suppan EMPLOYEE BENEFITS SPECIALIST.C[employer]S IMPORT SPECIALIST Work Phone: [facility] 01-24-2024 07:50-0400 Heart rate 74 /min Orquidea Suppan EMPLOYEE BENEFITS SPECIALIST.C[employer] IMPORT SPECIALIST Work Phone: [facility] 01-24-2024 07:50-0400 Respiratory rate 16 /min Orquidea Suppan EMPLOYEE BENEFITS SPECIALIST.C[employer]S IMPORT SPECIALIST Work Phone: [facility] 01-24-2024 07:50-0400 SaO2% (BldA) [Mass fraction] 97 % Orquidea Suppan EMPLOYEE BENEFITS SPECIALIST.[employer] IMP[employer] SPECIALIST Work Phone: [facility] 01-24-2024 07:50-0400 Systolic blood pressure 170 mm[Hg] Orquidea Suppan EMPLOYEE BENEFITS SPECIALIST.[employer] IMP[employer] SPECIALIST Work Phone: [facility] 12-27-2023 09:43-0400 Diastolic blood pressure 68 mm[Hg] Orquidea Suppan EMPLOYEE BENEFITS SPECIALIST.[employer]S IMP[employer] SPECIALIST Work Phone: [facility] 12-27-2023 09:43-0400 Systolic blood pressure 146 mm[Hg] Orquidea Suppan EMPLOYEE BENEFITS SPECIALIST.[employer]S IMP[employer] SPECIALIST Work Phone: [facility] 12-27-2023 09:39-0400 Body mass index (BMI) [Ratio] 34.22 kg/m2 Orquidea Suppan EMPLOYEE BENEFITS SPECIALIST.C[employer]OMS IMPORT SPECIALIST Work Phone: [facility] 12-27-2023 09:39-0400 Body weight 96.16 kg Orquidea Suppan EMPLOYEE BENEFITS SPECIALIST.[employer] IMP[employer] SPECIALIST Work Phone: [facility] 12-27-2023 09:39-0400 Heart rate 65 /min Orquidea Suppan EMPLOYEE BENEFITS SPECIALIST.[employer]S IMP[employer] SPECIALIST Work Phone: [facility] 12-27-2023 09:39-0400 SaO2% (BldA) [Mass fraction] 98 % Orquidea Suppan EMPLOYEE BENEFITS SPECIALIST.C[employer]OMS IMPORT SPECIALIST Work Phone: [facility] 10-18-2022 08:55-0400 Diastolic blood pressure 80 mm[Hg] Rosalino Carmona MD Work Phone: [facility] 10-18-2022 08:55-0400 Systolic blood pressure 136 mm[Hg] Rosalino Carmona MD Work Phone: [facility] 10-18-2022 08:34-0400 Body weight 93.89 kg Rosalino Carmona MD Work Phone: [facility] 10-18-2022 08:34-0400 Heart rate 60 /min Rosalino Carmona MD Work Phone: [facility] 10-18-2022 08:34-0400 SaO2% (BldA) [Mass fraction] 98 % Rosalino Carmona MD Work Phone: [facility] 04-18-2022 10:56-0500 Diastolic blood pressure 100 mm[Hg] Rosalino Carmona MD Work Phone: [facility] 04-18-2022 10:56-0500 Systolic blood pressure 180 mm[Hg] Rosalino Carmona MD Work Phone: [facility] 04-18-2022 10:22-0500 Body temperature 98.01 [degF] Rosalino Carmona MD Work Phone: [facility] 04-18-2022 10:22-0500 Body weight 95.53 kg Rosalino Carmona MD Work Phone: [facility] 04-18-2022 10:22-0500 Heart rate 71 /min Rosalino Carmona MD Work Phone: [facility] 04-18-2022 10:22-0500 Respiratory rate 16 /min Rosalino Carmona MD Work Phone: [facility] 10-14-2021 08:13-0400 Body weight 95.25 kg Rosalino Carmona MD Work Phone: [facility] 10-14-2021 08:13-0400 Diastolic blood pressure 90 mm[Hg] Rosalino Carmona MD Work Phone: [facility] 10-14-2021 08:13-0400 Heart rate 62 /min Rosalino Carmona MD Work Phone: [facility] 10-14-2021 08:13-0400 Respiratory rate 16 /min Rosalino Carmona MD Work Phone: [facility] 10-14-2021 08:13-0400 SaO2% (BldA) [Mass fraction] 97 % Rosalino Carmona MD Work Phone: [facility] 10-14-2021 08:13-0400 Systolic blood pressure 160 mm[Hg] Rosalino Carmona MD Work Phone: [facility] 02-05-2017 09:45-0400 BMI (Body Mass Index) 31.01 kg/m2 [facility] Work Phone: 02-05-2017 09:45-0400 BP Diastolic 84 mm[Hg] [facility] Work Phone: 02-05-2017 09:45-0400 BP Systolic 182 mm[Hg] [facility] Work Phone: 02-05-2017 09:45-0400 Height 170.18 cm [facility] Work Phone: 02-05-2017 09:45-0400 Pulse (Heart Rate) 80 /min [facility] Work Phone: 02-05-2017 09:45-0400 Respiratory Rate 20 /min [facility] Work Phone: 02-05-2017 09:45-0400 Weight 89.81 kg [facility] Work Phone: 01-23-2016 13:53-0400 BSA (Body Surface Area) 2.02 m2 [facility] Work Phone: Encounters Encounter Date Encounter Type Care Provider Facility Start: 02-11-2025 End: 02-11-2025 [facility] Start: 01-08-2025 End: 01-08-2025 Patient encounter procedure Demetrice SINGH [facility] Work Phone: Start: 01-08-2025 End: 01-08-2025 ambulatory Rosalino Carmona [facility] Start: 01-05-2025 End: 01-05-2025 ambulatory ORQUIDEA ROBERTSON Facility:[facility] Start: 12-28-2024 End: 12-28-2024 Patient encounter procedure Breanna Canseco PA-C Work Phone: Orthopaedics Comment on above: Primary osteoarthrit is of both knees (Primary Dx) Start: 12-28-2024 End: 12-28-2024 ambulatory BREANNA CANSECO Facility:[facility] Start: 12-22-2024 End: 12-22-2024 Follow-up encounter Orquidea Robertson APRN.[employer] IMP[employer] SPECIALIST Work Phone: [facility] Start: 12-18-2024 End: 12-18-2024 ambulatory [facility] Facility:[facility] Start: 12-10-2024 End: 12-10-2024 Telephone encounter Rosalino Carmona MD Work Phone: [facility] Comment on above: Results Start: 12-09-2024 End: 12-09-2024 ambulatory [facility] Facility:[facility] Start: 12-02-2024 End: 12-02-2024 Patient encounter procedure Rosalino Carmona MD Work Phone: [facility] Comment on above: Primary hypertension (Primary Dx); Paroxysmal atrial fibrillation (HCC); Chronic anticoagulation; Anxiety; Bacterial sinusitis; Fatigue, unspecified type Start: 12-02-2024 End: 12-02-2024 ambulatory [facility] Facility:[facility] Start: 09-21-2024 End: 09-21-2024 Patient encounter procedure Breanna Canseco PA-C Work Phone: Orthopaedics Comment on above: Primary osteoarthrit is of both knees (Primary Dx) Start: 09-21-2024 End: 09-21-2024 [facility] Facility:[facility] Start: 07-10-2024 End: 07-10-2024 [facility] Start: 06-08-2024 End: 06-08-2024 ambulatory [facility] Facility:[facility] Start: 06-08-2024 End: 06-08-2024 Patient encounter procedure Breanna Canseco PA-C Work Phone: Orthopaedics Comment on above: Primary osteoarthrit is of both knees (Primary Dx) Start: 05-26-2024 End: 05-26-2024 Office outpatient visit 15 minutes Orquidea Robertson APRN.C[employer]OMS IMP[employer] SPECIALIST Work Phone: [facility] Comment on above: Acute recurrent maxi llary sinusitis (Primary Dx); Anxiety; Primary hypertension Start: 05-26-2024 End: 05-26-2024 ambulatory ORQUIDEA ROBERTSON Facility:[facility] Start: 05-05-2024 End: 05-05-2024 Telephone encounter Rosalino Carmona MD Work Phone: [facility] [place] Comment on above: Patient Update; Bridgette ent Question Start: 04-28-2024 End: 04-28-2024 Patient encounter procedure Rosalino Carmona MD Work Phone: [facility] [place] Comment on above: Paroxysmal atrial fi brillation (HCC) (Primary Dx); Primary hypertension; Stage 3a chronic kidney disease (HCC); Chronic anticoagulation; Anxiety; Screening for depression Start: 04-28-2024 End: 04-28-2024 ambulatory ROSALINO CARMONA Facility:[facility] Start: 04-28-2024 End: 04-29-2024 Telephone encounter Rosalino Carmona MD Work Phone: [facility] [place] Comment on above: Medication Problem Start: 04-10-2024 End: 04-10-2024 Telephone encounter Rosalino Carmona MD Work Phone: [facility] [place] Comment on above: Results Start: 04-10-2024 End: 04-10-2024 Subsequent hospital visit by physician Lg Gallo [facility] Comment on above: Encounter for screen ing mammogram for malignant neoplasm of breast Start: 04-10-2024 End: 04-10-2024 ambulatory [facility] Start: 03-25-2024 End: 03-26-2024 Telephone encounter Rosalino Carmona MD Work Phone: [facility] [place] Comment on above: Orders Start: 03-13-2024 ambulatory [facility] Facility:[facility] Start: 03-13-2024 End: 03-13-2024 ambulatory [facility] Facility:[facility] Start: 03-10-2024 End: 03-10-2024 ambulatory [facility] [place] Start: 03-02-2024 End: 03-02-2024 ambulatory BREANNA CANSECO Facility:[facility] Start: 03-02-2024 End: 03-02-2024 Patient encounter procedure Breanna Canseco PA-C Work Phone: Orthopaedics Comment on above: Primary osteoarthrit is of both knees (Primary Dx) Start: 01-27-2024 End: 01-27-2024 Telephone encounter Orquidea Robertson APRN.CNP Work Phone: [facility] [place] Comment on above: Results Start: 01-24-2024 End: 01-24-2024 Office outpatient visit 25 minutes Orquidea Robertson APRN.CNP Work Phone: [facility] [place] Comment on above: Anxiety (Primary Dx) ; Acute bronchitis, unspecified organism; Primary hypertension; Chronic fatigue; Stage 3a chronic kidney disease (HCC); Chronic anticoagulation; Screening for lipid disorders; Paroxysmal atrial fibrillation (HCC); Disorder of iron metabolism, unspecified Start: 01-14-2024 End: 01-14-2024 ambulatory Cherelle Rush RN Work Phone: [employer] Start: 01-14-2024 End: 01-14-2024 Telephone follow-up Cherelle Rush RN Work Phone: [employer] Comment on above: Transition Of Care ( [facility] Follow-up Day 22) Started Weekly phone contact (Recurring) for Transitional Care Management Start: 01-09-2024 End: 01-09-2024 Telephone encounter Orquidea Robertson APRN.C[employer] IMP[employer] SPECIALIST Work Phone: [facility] [place] Comment on above: Patient Question Start: 01-07-2024 End: 01-07-2024 ambulatory Cherelle Rush RN Work Phone: [employer] Start: 01-07-2024 End: 01-07-2024 Telephone follow-up Cherelle Rush RN Work Phone: [employer] Comment on above: Transition Of Care ( [facility] Follow-up Day 15) Started Weekly phone contact (Recurring) for Transitional Care Management Start: 12-31-2023 End: 12-31-2023 ambulatory Cherelle Rush RN Work Phone: [employer] Start: 12-31-2023 End: 12-31-2023 Telephone follow-up Cherelle Rush RN Work Phone: [employer] Comment on above: Transition Of Care ( [facility] Follow-up Day 18) Started Weekly phone contact (Recurring) for Transitional Care Management Start: 12-27-2023 End: 12-30-2023 Telephone encounter Rosalino Carmona MD Work Phone: [facility] Comment on above: Insurance Authorizat ion (hydroxyzine) Start: 12-27-2023 End: 12-27-2023 Office outpatient visit 25 minutes Orquidea Robertson APRN.CNP Work Phone: [facility] Comment on above: Primary hypertension (Primary Dx); Paroxysmal atrial fibrillation (HCC); Chronic anticoagulation; Anxiety; Stage 3a chronic kidney disease (HCC); Pain in both knees, unspecified chronicity; Epistaxis Start: 12-26-2023 End: 12-26-2023 Telephone encounter Breanna Canseco PA-C Work Phone: Orthopaedics Start: 12-26-2023 End: 12-26-2023 Patient encounter procedure Breannadra Canseco PA-C Work Phone: Orthopaedics Comment on above: Primary osteoarthrit is of both knees (Primary Dx); Chronic pain of both knees; Fall, initial encounter Start: 12-26-2023 ambulatory BREANNA CANSECO Facilit y:[facility] Start: 12-26-2023 End: 12-26-2023 Subsequent hospital visit by physician [facility] Work Phone: Radiology Comment on above: Acute pain of both k nees [M25.561, M25.562] Start: 12-25-2023 End: 12-25-2023 Orders Only Breannadra Canseco PA-C Work Phone: Orthopaedics Comment on above: Acute pain of both k nees (Primary Dx) Patient Update; Appo intment Start: 12-24-2023 End: 12-24-2023 Patient Outreach Cherelle Rush RN Work Phone: [employer] Comment on above: Transition Of Care ( [facility] Discharge 12/23/23) Initial phone contact for Transitional Care Management, Started Weekly phone contact (Recurring) for Transitional Care Management Start: 12-20-2023 End: 12-20-2023 Telephone encounter Rosalino Carmona MD Work Phone: [facility] Comment on above: Patient Update Start: 11-25-2023 End: 11-25-2023 Subsequent hospital visit by physician [facility] Work Phone: Radiology Comment on above: Primary osteoarthrit is of both knees [M17.0] Start: 11-25-2023 End: 11-25-2023 Patient encounter procedure Breanna Vetovitz PA-C Work Phone: Orthopaedics Comment on above: Primary osteoarthrit is of both knees (Primary Dx); Chronic pain of both knees Start: 08-19-2023 End: 08-19-2023 Patient encounter procedure Breanna Vetovitz PA-C Work Phone: Orthopaedics Comment on above: Primary osteoarthrit is of both knees (Primary Dx); Chronic pain of both knees Start: 02-25-2023 Telephone encounter Rosalino Carmona MD Work Phone: [address] [place] [address] Comment on above: Orders Start: 02-04-2023 End: 02-04-2023 Patient encounter procedure Breanna Vetovitz PA-C Work Phone: Orthopaedics Comment on above: Primary osteoarthrit is of both knees (Primary Dx) Start: 10-29-2022 End: 10-29-2022 Patient encounter procedure Breanna Vetovitz PA-C Work Phone: Orthopaedics Comment on above: Primary osteoarthrit is of both knees (Primary Dx) Start: 10-18-2022 End: 10-18-2022 Patient encounter procedure Rosalino Carmona MD Work Phone: [facility] Comment on above: Paroxysmal atrial fi brillation (HCC) (Primary Dx); Primary hypertension; Stage 3a chronic kidney disease (HCC); Chronic anticoagulation; Anxiety Start: 10-17-2022 Orders Only Breanna Brandeeyesica angeles PA-C Work Phone: Orthopaedics Comment on above: Pain in both knees, unspecified chronicity (Primary Dx) Start: 10-15-2022 Telephone encounter Britney Ramos PA-C Work Phone: [facility] Comment on above: Results Start: 07-16-2022 End: 07-16-2022 Patient encounter procedure Breanna Brandeedia PA-C Work Phone: Orthopaedics Comment on above: Chronic pain of both knees (Primary Dx); Primary osteoarthritis of both knees Start: 04-19-2022 Telephone encounter Rosalino Carmona MD Work Phone: [facility] Comment on above: Results Erroneous encounter- disregard Start: 04-18-2022 End: 04-18-2022 Patient encounter procedure Rosalino Carmona MD Work Phone: [facility] Comment on above: Paroxysmal atrial fi brillation (HCC) (Primary Dx); LBBB (left bundle branch block); Primary hypertension; Stage 3a chronic kidney disease (HCC); Chronic anticoagulation; Anxiety; Bacterial sinusitis Start: 04-03-[address] Rosalino Carmona Facility:[id number] Start: 03-12-2022 Telephone encounter Rosalino Carmona MD Work Phone: [address] [place] [address] Comment on above: Orders Start: 03-12-2022 End: 03-12-2022 Patient encounter procedure Breanna Canseco PA-C Work Phone: Orthopaedics Comment on above: Chronic pain of both knees (Primary Dx); Primary osteoarthritis of both knees Start: 12-18-2021 End: 12-18-2021 Subsequent hospital visit by physician [facility] Work Phone: Radiology Comment on above: Chronic pain of both knees [M25.561, M25.562, G89.29] Start: 12-18-2021 End: 12-18-2021 Patient encounter procedure Breanna Vetovitz PA-C Work Phone: Orthopaedics Comment on above: Primary osteoarthrit is of both knees (Primary Dx); Chronic pain of both knees Start: 10-14-2021 End: 10-14-2021 Subsequent hospital visit by physician [facility] Work Phone: Radiology Comment on above: Chronic pain of both knees [M25.561, M25.562, G89.29] Start: 10-14-2021 End: 10-14-2021 Patient encounter procedure Rosalino Carmona MD Work Phone: [facility] Comment on above: Paroxysmal atrial fi brillation (HCC) (Primary Dx); Primary hypertension; Stage 3a chronic kidney disease (HCC); Chronic anticoagulation; Anxiety; Chronic pain of both knees Start: 12-09-2017 Patient encounter Facil [id number] Procedures Date Procedure Procedure Detail Performing Clinician Start: 12-28-2024 Arthrocentesis aspir &/inj major jt/bursa w/o us Breanna Vetovitz PA-C Work Phone: Start: 09-21-2024 Arthrocentesis aspir &/inj major jt/bursa w/o us Breanna Vetovitz PA-C Work Phone: Start: 06-08-2024 Arthrocentesis aspir &/inj major jt/bursa w/o us Breanna Vetovitz PA-C Work Phone: Start: 04-28-2024 Adult depression scr eening assessment Rosalino Carmona MD Work Phone: Start: 04-10-2024 Screening digital br [place] [employer] Rosalino Carmona MD Work Phone: Start: 03-02-2024 Arthrocentesis aspir &/inj major jt/bursa w/o us Breanna Vetovitz PA-C Work Phone: Start: 12-26-2023 Radiologic exam knee complete 4/more views Breanna Vetovitz PA-C Work Phone: Start: 11-25-2023 Arthrocentesis aspir &/inj major jt/bursa w/o us Breanna Vetovitz PA-C Work Phone: Start: 08-19-2023 Arthrocentesis aspir &/inj major jt/bursa w/o us Breanna Vetovitz PA-C Work Phone: Start: 02-04-2023 Arthrocentesis aspir &/inj major jt/bursa w/o us Breanna Vetovitz PA-C Work Phone: Start: 10-29-2022 Arthrocentesis aspir &/inj major jt/bursa w/o us Breanna Vetovitz PA-C Work Phone: Start: 07-16-2022 Arthrocentesis aspir &/inj major jt/bursa w/o us Breanna Vetovitz PA-C Work Phone: Start: 03-12-2022 Arthrocentesis aspir &/inj major jt/bursa w/o us Breanna Vetovitz PA-C Work Phone: Start: 12-18-2021 Arthrocentesis aspir &/inj major jt/bursa w/o us Breanna Vetovitz PA-C Work Phone: Start: 12-18-2021 Radex spine lumbosac ral 2/3 views Breanna Vetovitz PA-C Work Phone: Start: 10-14-2021 Radiologic exam knee complete 4/more views Rosalino Carmona MD Work Phone: Start: 02-05-2017 End: 02-05-2017 LACTATION COORDINATOR Jeremy Mchugh MD Start: 02-05-2017 End: 02-05-2017 Follow Up Appt 1 year Jeremy Mchugh MD Start: 01-23-2016 End: 01-23-2016 Follow Up Appt 1 year Jeremy Mchugh MD Start: 01-23-2016 End: 01-23-2016 ANDRZEJ Mchugh MD Start: 02-15-2015 End: 02-15-2015 MICHELLE Mchugh MD Start: 02-15-2015 End: 02-16-2015 Documentation of current medications Jeremy Mchugh MD Start: 02-15-2015 End: 02-15-2015 Follow Up Appt 1 year Jeremy Mchugh MD Start: 02-16-2014 End: 02-16-2014 MICHELLE Mchugh MD Start: 02-16-2014 End: 02-16-2014 Follow Up Appt 1 year Jeremy Mchugh MD Start: 08-11-2013 End: 08-11-2013 MICHELLE Mchugh MD Start: 08-11-2013 End: 02-16-2014 Follow Up Appt 6 months Britney Keller Start: 08-11-2013 End: 02-16-2014 ANDRZEJ Mchugh MD Start: 01-07-2013 End: 01-07-2013 LACTATION COORDINATOR Demetrice Greer PA-C Work Phone: Start: 01-07-2013 End: 01-07-2013 eRx Transmitted during this visit (Medicare only) eDmetrice Greer PA-C Work Phone: Start: 01-07-2013 End: 01-07-2013 Follow Up Appt 6 months Demetrice moreira PA-C Work Phone: Start: 07-11-2012 End: 07-11-2012 Follow Up Appt 6 months Britney Keller Start: 07-11-2012 End: 07-11-2012 MMM Jeremy Mchugh MD Start: 11-22-2011 End: 11-22-2011 Follow Up Appt 6 months Britney Keller Start: 11-22-2011 End: 12-06-2011 Nuclear stress test -exercise Jeremy Mchugh MD Plan of Treatment Date Care Activity Detail Author Start: 12-19-2027 Diabetes Screening Diabetes Screening [facility] Start: 12-10-2027 Diabetes Screening Diabetes Screening [facility] Start: 01-23-2027 Diabetes Screening Diabetes Screening [facility] Start: 04-09-2026 Diabetes Screening Diabetes Screening [facility] Start: 10-13-2025 DIABETES SCREEN DIABETES SCREEN [facility] Start: 10-13-2025 Diabetes Screening Diabetes Screening [facility] Start: 06-11-2025 End: 06-11-2025 Patient encounter procedure 06/11/2025 8:00 AM EST Office Visit [facility] [address] [place], [place] [id number] Rosalino Carmona MD [address] [place], [place] [id number] medicare wellness [facility] Comment on above: medicare wellness Start: 04-28-2025 Covid-19 Vaccine () Covid-19 Vaccine () [facility] Comment on above: Postponed from 12/22/2023 (Declined at t his time) Start: 04-28-2025 Depression Screening Depression Screening [facility] Start: 04-28-2025 RSV Vaccine (1 - 1-dose 75+ series) RSV Vaccine (1 - 1-dose 75+ series) [facility] Comment on above: Postponed from 09/05/2015 (Declined at t his time) Start: 04-18-2025 DIABETES SCREEN DIABETES SCREEN [facility] Start: 03-29-2025 End: 03-29-2025 Patient encounter procedure 03/29/2025 8:30 AM EST Office Visit Orthopaedics [address] [place] [address] Breanna Canseco PA-C [address] [place] [address] 91 day follow up B/L knees [facility]opa[facility] Comment on above: 91 day follow up B/L knees Start: 02-21-2025 End: 05-23-2025 Thyrotropin [Units/volume] in Serum or Plasma THYROID STIMULATING HORMONE Lab Routine Hypothyroidism, acquired Expected: 02/21/2025, Expires: 05/23/2025 [facility] Work Phone: Comment on above: Expected: 02/21/2025, Expires: Start: 02-21-2025 End: 05-23-2025 Thyroxine (T4) free [Mass/volume] in Serum or Plasma T4 FREE/FREE THYROXINE Lab Routine Hypothyroidism, acquired Expected: 02/21/2025, Expires: 05/23/2025 [facility] Comment on above: Expected: 02/21/2025, Expires: Start: 01-23-2025 Diabetes mellitus screening Diabetes Screening [facility] Start: 01-23-2025 Shingrix Vaccine (1 of 2) Shingrix Vaccine (1 of 2) [facility] Comment on above: Postponed from 1990 (Insurance Cov erage) Start: 01-23-2025 Urine microalbumin profile DTaP,Tdap,Td Vaccine (1 - Tdap) [facility] Comment on above: Postponed from 09/05/1959 (Insurance Cov erage) Start: 01-05-2025 End: 04-06-2025 Basic metabolic 2000 panel - Serum or Plasma BASIC METABOLIC PANEL Lab Routine Hyponatremia Expected: 01/05/2025, Expires: 04/06/2025 [facility] Comment on above: Expected: 01/05/2025, Expires: Start: 01-05-2025 End: 04-06-2025 Magnesium [Mass/volume] in Serum or Plasma MAGNESIUM Lab Routine Hyponatremia Expected: 01/05/2025, Expires: 04/06/2025 [facility] Comment on above: Expected: 01/05/2025, Expires: Start: 12-28-2024 End: 12-28-2024 Patient encounter procedure 12/28/2024 8:30 AM EDT Office Visit Orthopaedics [address] [place] [address] Breanna Canseco PA-C [address] [place] [address] 91 day follow up B/L knees Orthopaedics Comment on above: 91 day follow up B/L knees Start: 12-24-2024 End: 03-25-2025 Basic metabolic 2000 panel - Serum or Plasma BASIC METABOLIC PANEL Lab Routine Renal insufficiency Hypothyroidism, acquired Expected: 12/24/2024, Expires: 03/25/2025 [facility] Work Phone: Comment on above: Expected: 12/24/2024, Expires: Start: 12-24-2024 End: 03-25-2025 T4/FTI/T4U T4/FTI/T4U Lab Routine Renal insufficiency Hypothyroidism, acquired Expected: 12/24/2024, Expires: 03/25/2025 [facility] Comment on above: Expected: 12/24/2024, Expires: Start: 12-24-2024 End: 03-25-2025 Thyrotropin [Units/volume] in Serum or Plasma THYROID STIMULATING HORMONE Lab Routine Renal insufficiency Hypothyroidism, acquired Expected: 12/24/2024, Expires: 03/25/2025 [facility] Comment on above: Expected: 12/24/2024, Expires: Start: 12-24-2024 End: 03-25-2025 Triiodothyronine (T3) [Mass/volume] in Serum or Plasma T3 Lab Routine Renal insufficiency Hypothyroidism, acquired Expected: 12/24/2024, Expires: 03/25/2025 [facility] Comment on above: Expected: 12/24/2024, Expires: Start: 12-21-2024 Influenza vaccination [facility] Start: 12-02-2024 End: 03-02-2025 CBC W Auto Differential panel - Blood COMPLETE BLOOD COUNT AND DIFFERENTIAL Lab Routine Fatigue, unspecified type Expected: 12/02/2024, Expires: 03/02/2025 [facility] Work Phone: Comment on above: Expected: 12/02/2024, Expires: Start: 12-02-2024 End: 03-02-2025 Comprehensive metabolic 2000 panel - Serum or Plasma COMPREHENSIVE METABOLIC PANEL Lab Routine Fatigue, unspecified type Expected: 12/02/2024, Expires: 03/02/2025 [facility] Comment on above: Expected: 12/02/2024, Expires: Start: 12-02-2024 End: 03-02-2025 Lipid 1996 panel - Serum or Plasma LIPID PANEL, FASTING Lab Routine Primary hypertension Expected: 12/02/2024, Expires: 03/02/2025 [facility] Comment on above: Expected: 12/02/2024, Expires: Start: 12-02-2024 End: 03-02-2025 Thyrotropin [Units/volume] in Serum or Plasma THYROID STIMULATING HORMONE Lab Routine Fatigue, unspecified type Expected: 12/02/2024, Expires: 03/02/2025 [facility] Comment on above: Expected: 12/02/2024, Expires: Start: 12-02-2024 End: 12-02-2024 Patient encounter procedure 12/02/2024 8:40 AM EDT Office Visit Family [facility] [address] [place], [place] [id number] Rosalino Carmona MD [address] [place] [address] 6 month follow up [facility] Stephen Marques Comment on above: 6 month follow up Start: 10-19-2024 Influenza vaccination Influenza Vaccine (#1) [facility] tanner Comment on above: Postponed from 12/22/2023 (Declined at t his time) Start: 10-09-2024 DIABETES SCREEN DIABETES SCREEN [facility] Start: 09-21-2024 End: 09-21-2024 Patient encounter procedure 09/21/2024 8:30 AM EDT Office Visit Orthopaedics [address] [place] [address] Breanna Canseco PA-C [address] [place] [address] 91 day follow up - cortisone injecction B/L knee Orthopaedics Comment on above: 91 day follow up - cortisone injecction B/L knee Start: 06-08-2024 End: 06-08-2024 Patient encounter procedure 06/08/2024 8:30 AM EST Office Visit Orthopaedics [address] [place] [address] Breanna Canseco PA-C [address] [place] [address] 91 day follow up - cortisone injecction B/L knee Orthopaedics Comment on above: 91 day follow up - cortisone injecction B/L knee Start: 05-26-2024 End: 05-26-2024 Patient encounter procedure 05/26/2024 8:00 AM EST Office Visit [facility] [place] [address] [place] [address] Orquidea Robertson APRN.CUSTOMS IMPORT SPECIALIST [address] [place] [address] 4 week follow up axniety. started on Sertraline. BP check [facility] [place] Comment on above: 4 week follow up axniety. started on Ser traline. BP check Start: 04-28-2024 End: 04-28-2024 Patient encounter procedure 04/28/2024 2:40 PM EST Office Visit [facility] [place] [address] [place] [address] Rosalino Carmona MD [address] [place] [address] 3 month f/u [facility] Comment on above: 3 month f/u Start: 03-02-2024 End: 03-02-2024 Patient encounter procedure 03/02/2024 8:30 AM EST Office Visit Orthopaedics [address] [place] [address] Breanna Canseco PA-C [address] [place] [address] 91 day follow up - cortisone injecction B/L knee Orthopaedics Comment on above: 91 day follow up - cortisone injecction B/L knee Start: 01-24-2024 End: 04-24-2024 CBC W Auto Differential panel - Blood [facility] Work Phone: Comment on above: Expected: 01/24/2024, Expires: Start: 01-24-2024 End: 04-24-2024 Cobalamin (Vitamin B12) [Mass/volume] in Serum or Plasma [facility] Comment on above: Expected: 01/24/2024, Expires: Start: 01-24-2024 End: 04-24-2024 Comprehensive metabolic 2000 panel - Serum or Plasma [facility] Comment on above: Expected: 01/24/2024, Expires: Start: 01-24-2024 End: 04-24-2024 Hemoglobin A1c in Blood [facility] Comment on above: Expected: 01/24/2024, Expires: Start: 01-24-2024 End: 04-24-2024 LIPID PANEL, NONFASTING [facility] Comment on above: Expected: 01/24/2024, Expires: Start: 01-24-2024 End: 04-24-2024 Magnesium [Mass/volume] in Serum or Plasma [facility] Comment on above: Expected: 01/24/2024, Expires: Start: 01-24-2024 End: 04-24-2024 Thyrotropin [Units/volume] in Serum or Plasma [facility] Comment on above: Expected: 01/24/2024, Expires: Start: 01-24-2024 End: 01-24-2024 Patient encounter procedure 01/24/2024 8:00 AM EDT Office Visit [facility] [place] [address] [place] [address] Orquidea Robertson APRN.CUSTOMS IMPORT SPECIALIST [address] [place] [address] 4 week BP f/u [facility] [place] Comment on above: 4 week BP f/u Start: 12-27-2023 End: 12-27-2023 Patient encounter procedure 12/27/2023 9:20 AM EDT Office Visit [facility] [place] [address] [place] [address] Orquidea Robertson APRN.CUSTOMS IMPORT SPECIALIST [address] [place] [address] follow up from [facility] for nose bleeds [facility] [place] Comment on above: follow up from [facility] for nose bleeds Start: 12-26-2023 End: 12-26-2023 Patient encounter procedure Radiology Comment on above: follow up fall- knee pain R>L Start: 12-25-2023 End: 12-25-2023 Patient encounter procedure 12/25/2023 9:00 AM EDT Office Visit [facility] [place] [address] [place] [address] Rosalino Carmona MD [address] [place] [address] ER F/U [facility] 12/20/2023; Nose Bleed [facility] Comment on above: ER F/U [facility] 12/20/2023; Nose Bleed Start: 12-22-2023 COVID-19 Vaccine () COVID-19 Vaccine () [facility] Start: 12-22-2023 Covid-19 Vaccine () Covid-19 Vaccine () [facility] Start: 12-22-2023 Covid-19 Vaccine () Covid-19 Vaccine ( season) [facility] Start: 12-22-2023 Influenza vaccination [facility] Start: 11-25-2023 End: 11-25-2023 Patient encounter procedure 11/25/2023 8:00 AM EDT Office Visit Orthopaedics [address] [place] [address] Breanna Canseco PA-C [address] [place] [address] 91 DAY FOLLOW UP CORTISON INJECTIO B/L [facility] Comment on above: 91 DAY FOLLOW UP CORTISON INJECTIO B/L Start: 10-19-2023 COVID-19 VACCINE (4 - Booster for Pfizer series) COVID-19 VACCINE (4 - Booster for Pfizer series) [facility] Comment on above: Postponed from 04/20/2021 (Declined at t his time) Start: 10-19-2023 COVID-19 VACCINE (4 - Pfizer series) COVID-19 VACCINE (4 - Pfizer series) [facility] Comment on above: Postponed from 04/20/2021 (Declined at t his time) Start: 10-19-2023 SHINGRIX VACCINE (1 of 2) SHINGRIX VACCINE (1 of 2) [facility] Comment on above: Postponed from 1990 (Declined at t his time) Start: 10-19-2023 Urine microalbumin profile [facility] Comment on above: Postponed from 09/05/1959 (Declined at t his time) Start: 04-22-2023 Advance Directive Discussion Advance Directive Discussion [facility] Start: 04-22-2023 Behavioral Health Screening Behavioral Health Screening [facility] Start: 04-19-2023 End: 06-19-2023 Basic metabolic 2000 panel - Serum or Plasma BASIC METABOLIC PNL Lab Routine Stage 3a chronic kidney disease (HCC) Expected: 04/19/2023, Expires: 06/19/2023 [facility] Work Phone: Comment on above: Expected: 04/19/2023, Expires: Start: 04-19-2023 End: 06-19-2023 CBC W Auto Differential panel - Blood CBC + DIFF Lab Routine Stage 3a chronic kidney disease (HCC) Expected: 04/19/2023, Expires: 06/19/2023 [facility] Work Phone: Comment on above: Expected: 04/19/2023, Expires: 4 Start: 12-21-2022 Covid-19 Vaccine () Covid-19 Vaccine () [facility] Start: 12-21-2022 Influenza vaccination [facility] Start: 10-14-2022 SHINGRIX VACCINE (1 of 2) SHINGRIX VACCINE (1 of 2) [facility] Comment on above: Postponed from 1990 (Insurance Cov erage) Start: 10-14-2022 Urine microalbumin profile DTAP,TDAP,TD (1 - Tdap) [facility] Comment on above: Postponed from 09/05/1959 (Insurance Cov erage) Start: 04-22-2022 ADVANCE DIRECTIVE DISCUSSION ADVANCE DIRECTIVE DISCUSSION [facility] Start: 04-22-2022 DEPRESSION ASSESSMENT DEPRESSION ASSESSMENT [facility] Start: 04-19-2022 End: 06-19-2022 CBC W Auto Differential panel - Blood CBC + DIFF Lab Routine Leukocytosis, unspecified type Expected: 04/19/2022, Expires: 06/19/2022 [facility] Work Phone: Comment on above: Expected: 04/19/2022, Expires: 3 Start: 04-15-2022 End: 06-15-2022 Basic metabolic 2000 panel - Serum or Plasma BASIC METABOLIC PNL Lab Routine Stage 3a chronic kidney disease (HCC) Expected: 04/15/2022, Expires: 06/15/2022 [facility] Work Phone: Comment on above: Expected: 04/15/2022, Expires: 3 Start: 04-15-2022 End: 06-15-2022 CBC W Auto Differential panel - Blood CBC + DIFF Lab Routine Primary hypertension Chronic anticoagulation Expected: 04/15/2022, Expires: 06/15/2022 [facility] Work Phone: Comment on above: Expected: 04/15/2022, Expires: 3 Start: 12-21-2021 Influenza vaccination INFLUENZA (#1) [facility] Start: 06-23-2021 COVID-19 VACCINE (4 - Booster for Pfizer series) COVID-19 VACCINE (4 - Booster for Pfizer series) [facility] Start: 04-22-2021 DEPRESSION ASSESSMENT DEPRESSION ASSESSMENT [facility] Start: 04-20-2021 COVID-19 VACCINE (4 - Booster for Pfizer series) COVID-19 VACCINE (4 - Booster for Pfizer series) [facility] Start: 02-06-2018 End: 02-06-2018 Appointment Appointment [facility] Work Phone: Start: 02-05-2017 End: 02-05-2017 LACTATION COORDINATOR LACTATION COORDINATOR [facility] Work Phone: Start: 02-05-2017 End: 02-05-2017 Follow Up Appt 1 year Follow Up Appt 1 year [facility] Work Phone: Start: 01-23-2016 End: 01-23-2016 Follow Up Appt 1 year Follow Up Appt 1 year [facility] Work Phone: Start: 01-23-2016 End: 01-23-2016 MMM MMM [facility] Work Phone: Start: 09-05-2015 RSV High Risk: (Elderly (60+) or Population) (1 - 1-dose 75+ series) RSV High Risk: (Elderly (60+) or Population) (1 - 1-dose 75+ series) [facility] Start: 09-05-2015 RSV Vaccine (1 - 1-dose 75+ series) RSV Vaccine (1 - 1-dose 75+ series) [facility] Start: 02-15-2015 End: 02-15-2015 LACTATION COORDINATOR LACTATION COORDINATOR [facility] Work Phone: Start: 02-15-2015 End: 02-15-2015 Follow Up Appt 1 year Follow Up Appt 1 year [facility] Work Phone: Start: 02-16-2014 End: 02-16-2014 LACTATION COORDINATOR LACTATION COORDINATOR [facility] Work Phone: Start: 02-16-2014 End: 02-16-2014 Follow Up Appt 1 year Follow Up Appt 1 year [facility] Work Phone: Start: 08-11-2013 End: 08-11-2013 LACTATION COORDINATOR LACTATION COORDINATOR [facility] Work Phone: Start: 08-11-2013 End: 02-16-2014 Follow Up Appt 6 months Follow Up Appt 6 months [facility] Work Phone: Start: 08-11-2013 End: 02-16-2014 MMM MMM [facility] Work Phone: Start: 01-07-2013 End: 01-07-2013 LACTATION COORDINATOR LACTATION COORDINATOR [facility] Work Phone: Start: 01-07-2013 End: 01-07-2013 Follow Up Appt 6 months Follow Up Appt 6 months [facility] Work Phone: Start: 07-11-2012 End: 07-11-2012 Follow Up Appt 6 months Follow Up Appt 6 months [facility] Work Phone: Start: 07-11-2012 End: 07-11-2012 MMM MMM [facility] Work Phone: Start: 11-22-2011 End: 11-22-2011 Follow Up Appt 6 months Follow Up Appt 6 months [facility] Work Phone: Start: 11-22-2011 End: 11-22-2011 Nuclear stress test -exercise Nuclear stress test -exercise [facility] Work Phone: Start: 09-20-2002 Medicare Annual Wellness Visit Medicare Annual Wellness Visit [facility] Start: 2000 RSV Vaccine (1 - 1-dose 60+ series) RSV Vaccine (1 - 1-dose 60+ series) [facility] Start: 1990 SHINGRIX VACCINE (1 of 2) SHINGRIX VACCINE (1 of 2) [facility] Start: 1990 Zoster Vaccines (1 of 2) Zoster Vaccines (1 of 2) [facility] Start: 1962 DTaP/Tdap/Td Vaccines (1 - Tdap) DTaP/Tdap/Td Vaccines (1 - Tdap) [facility] Start: 09-05-1959 Urine microalbumin profile [facility] Start: 1958 Depression Screening Depression Screening [facility] Start: 1940 Lipid panel Lipid Panel [facility] Start: 1940 Medicare Annual Wellness Visit Medicare Annual Wellness Visit (AWV) [facility] End: 04-24-2025 DBT Breast - bilateral screening [facility]CRE[facility] Radiology Routine Screening mammogram for breast cancer 1 Occurrences starting 03/25/2024 until 04/24/2025 [facility] Work Phone: Comment on above: 1 Occurrences starting 03/25/2024 until 04/24/2025 End: 04-11-2023 [facility]CRE[facility] Radiology Routine Encounter for screening mammogram for malignant neoplasm of breast 1 Occurrences starting 03/12/2022 until 04/11/2023 [facility] Work Phone: Comment on above: 1 Occurrences starting 03/12/2022 until 04/11/2023 End: 03-26-2024 [facility] SCREENING [facility] Radiology Routine Encounter for screening mammogram for malignant neoplasm of breast 1 Occurrences starting 02/25/2023 until 03/26/2024 [facility] Work Phone: Comment on above: 1 Occurrences starting 02/25/2023 until 03/26/2024 End: 12-24-2024 XR Knee - bilateral 4 Views XR KNEE GENERAL 4V AP BOTH/PA BOTH/LAT/MERC BILATERAL Radiology Routine Primary osteoarthritis of both knees Chronic pain of both knees 1 Occurrences starting 11/25/2023 until 12/24/2024 [facility] Work Phone: Comment on above: 1 Occurrences starting 11/25/2023 until 12/24/2024 XR Knee - bilateral 4 Views XR KNEE GENERAL 4V AP BOTH/PA BOTH/LAT/MERC BILATERAL Radiology Routine Primary osteoarthritis of both knees Chronic pain of both knees 11/25/2023 8:48 AM EDT [facility] End: 01-23-2025 XR Knee - bilateral 4 Views XR KNEE GENERAL 4V AP BOTH/PA BOTH/LAT/MERC BILATERAL Radiology Routine Acute pain of both knees 1 Occurrences starting 12/25/2023 until 01/23/2025 [facility] Work Phone: Comment on above: 1 Occurrences starting 12/25/2023 until 01/23/2025 XR KNEE GENERAL 4V A P BOTH/PA BOTH/LAT/MERC BILATERAL XR KNEE GENERAL 4V AP BOTH/PA BOTH/LAT/MERC BILATERAL Radiology Routine Chronic pain of both knees 10/14/2021 9:[address] [facility] Work Phone: End: 11-16-2023 XR KNEE GENERAL 4V AP BOTH/PA BOTH/LAT/MERC BILATERAL XR KNEE GENERAL 4V AP BOTH/PA BOTH/LAT/MERC BILATERAL Radiology Routine Pain in both knees, unspecified chronicity 1 Occurrences starting 10/17/2022 until 11/16/2023 [facility] Work Phone: Comment on above: 1 Occurrences starting 10/17/2022 until 11/16/2023 [facility] Immunizations Immunization Date Immunization Notes Care Provider [facility] 01-12-2022 influenza, high dose seasonal, preservative-free Rosalino Carmona MD Work Phone: [facility] 01-12-2022 influenza virus vacc ine, unspecified formulation Breanna TEJEDAC Work Phone: [facility] 02-23-2021 COVID-19 vaccine, ag e 12+ yr (PFIZER-BIONTECH - PURPLE TOP) Rosalino Carmona MD Work Phone: [facility] Work Phone: 01-13-2021 influenza, high dose seasonal, preservative-free Rosalino Carmona MD Work Phone: [facility] Work Phone: 07-22-2020 COVID-19 vaccine, ag e 12+ yr (PFIZER-BIONTECH - PURPLE TOP) Rosalino Cramona MD Work Phone: [facility] Work Phone: 06-23-2020 COVID-19 vaccine, ag e 12+ yr (Zep [employer] - PURPLE TOP) Rosalino Carmona MD Work Phone: [facility] Work Phone: 12-25-2018 influenza, high dose seasonal, preservative-free Rosalino Carmona MD Work Phone: [facility] 01-13-2018 influenza, high dose seasonal, preservative-free Rosalino Carmona MD Work Phone: [facility] 01-09-2017 influenza, high dose seasonal, preservative-free Rosalino Carmona MD Work Phone: [facility] 01-13-2016 influenza, high dose seasonal, preservative-free Rosalino Carmona MD Work Phone: [facility] 01-05-2015 influenza, high dose seasonal, preservative-free Rosalino Carmona MD Work Phone: [facility] 01-05-2015 pneumococcal conjuga te vaccine, 13 valent Rosalino Carmona MD Work Phone: [facility] 01-11-2014 influenza, high dose seasonal, preservative-free Rosalino Carmona MD Work Phone: [facility] 03-21-2006 pneumococcal polysaccharide vaccine, 23 valent Rosalino Carmona MD Work Phone: [facility] Payers Date Payer Category Payer Self-pay 2022 Medicare supplementa l policy (as second payer) [facility] [id number] 2017 Private Health Insurance [facility] AARP SUPPLEMENT [id number] 2017-Present [phone] [address] [place] [address] Indemnity [id number] 2017 Private Health Insurance [id number] 2002 Medicare MEDICARE MEDICAR E A AND B [id number] 2002-Present [phone] [place] [address] Medicare [id number] 2002 Medicare [id number] 2002 Medicare [id number] 2000 Unknown [id number] 1940 Unknown [id number] 1940 Unknown [id number] Medicare [id number] Unknown [id number] Unknown [id number] Unknown [id number] Unknown [id number] Unknown [id number] Social History Date Type Detail Facility Start: 02-15-2018 End: 12-22-2023 Tobacco smoking status AZIS Ex-smoker [facility] Start: 02-15-2018 End: 04-18-2022 Tobacco use and exposure Smokeless tobacco non-user [facility] Start: 10-14-2021 End: 12-28-2024 Alcohol intake Current non-drinker of alcohol (finding) [facility] Start: 1940 Sex Assigned At Not on file [facility] History of tobacco use Current smoker [facility] Start: 12-08-2021 End: 04-10-2024 Exposure to SARS-CoV-2 (event) Not sure [facility] Start: 10-18-2022 End: 10-29-2022 History of Social function [facility] Work Phone: Start: 10-18-2022 End: 10-29-2022 Tobacco use panel [facility] Work Phone: Start: 03-23-2012 Adult Depression Screening Assessment 0 [facility] Work Phone: (I/We) worried wheth er (my/our) food would run out before (I/we) got money to buy more. Never true [facility] Work Phone: Tobacco smoking stat [facility] Tobacco smoking consumption unknown [facility] Work Phone: Start: 10-18-2022 Alcohol Alcohol [facility] Start: 10-18-2022 Lives Lives [facility] Start: 10-18-2022 Tobacco Use Tobacco Use [facility] Start: 1940 Sex Assigned At Female [facility] Clinical Notes 10-14-2021 to 01-08-2025 Breanna Canseco PA-C - 12/28/2024 8:39 AM Carmelita Rasmussen MA - 12/28/2024 8:14 AM EDTResult Encounter Note - Orquidea Robertson APRN.CNP - 12/22/2024 3:57 PM EDTPatient Instructions Note Date & Type Note Facility 01-08-2025 Progress note [facility] 12-28-2024 Note HNO ID: [id number] Author: BREANNA CANSECO PA-C Service: ? Author Type: Physician Post Framer Type: Progress Notes Filed: 12/28/2024 08:40 Note Text: Large Joint Arthro/Inj: bilateral knee joints 12/28/2024 8:39 AM The procedure site was prepped in the usual sterile fashion. Site: bilateral knee joints Medications (Right): 6 mg betamethasone acetate-betamethasone sodium phosphate 6 mg/mL Medications (Left): 6 mg betamethasone acetate-betamethasone sodium phosphate 6 mg/mL Anesthetics (Right): 5 mL lidocaine (PF) 10 mg/mL (1 %) Anesthetics (Left): 5 mL lidocaine (PF) 10 mg/mL (1 %) Outcome: Tolerated well, no immediate complications Post-injection instructions were reviewed with the patient and the patient voiced understanding of these instructions. Informed Consent Consent Obtained: Verbal [place] Protocol A moment to CARE was completed. SIGN IN Sign in communication not applicable due to emergent procedure. Personnel directly involved with the procedure wore the appropriate PPE. Special Equipment: N/A Patient/Surrogate Stated/Verified: Patient name, Date of , Relevant allergies and Intended procedure TIME OUT Relevant labs, photos, and/or imaging studies have been reviewed. Consent documented and matches the intended procedure. Correct side/site marked and visible. Medications required for procedure verified. No fire risk assessment and interventions applicable. No implant(s) inserted. SIGN OUT No specimen collected. No post-procedure POC communication to the patient's multidisciplinary team (including the bedside nurse for hospitalized patients) applicable. [facility] 12-28-2024 History of Present illness Narrative Associated Order(s): Large Joint Arthro/Inj: bilateral knee joints Post-Procedure Diagnose(s): Primary osteoarthritis of both knees Large Joint Arthro/Inj: bilateral knee joints 12/28/2024 8:39 AM The procedure site was prepped in the usual sterile fashion. Site: bilateral knee joints Medications (Right): 6 mg betamethasone acetate-betamethasone sodium phosphate 6 mg/mL Medications (Left): 6 mg betamethasone acetate-betamethasone sodium phosphate 6 mg/mL Anesthetics (Right): 5 mL lidocaine (PF) 10 mg/mL (1 %) Anesthetics (Left): 5 mL lidocaine (PF) 10 mg/mL (1 %) Outcome: Tolerated well, no immediate complications Post-injection instructions were reviewed with the patient and the patient voiced understanding of these instructions. Informed Consent Consent Obtained: Verbal [place] Protocol A moment to CARE was completed. SIGN IN Sign in communication not applicable due to emergent procedure. Personnel directly involved with the procedure wore the appropriate PPE. Special Equipment: N/A Patient/Surrogate Stated/Verified: Patient name, Date of , Relevant allergies and Intended procedure TIME OUT Relevant labs, photos, and/or imaging studies have been reviewed. Consent documented and matches the intended procedure. Correct side/site marked and visible. Medications required for procedure verified. No fire risk assessment and interventions applicable. No implant(s) inserted. SIGN OUT No specimen collected. No post-procedure POC communication to the patient's multidisciplinary team (including the bedside nurse for hospitalized patients) applicable. Patient presents with: Left Knee - Follow Up, Knee Pain Right Knee - Follow Up, Knee Pain: 14 weeks post visit OA Bilateral knees with injections given Wants injections AMB ROOMING INTAKE FLOWSHEET DATA Pain Pain Location: Knee-Left Description: Sharp Duration Amount of Time: (Ongoing) Frequency: Intermittent (Occurs with certain movements) Intervention/Comfort measure: (none) Taking no med's for the pain. Here for injections bilateral knees. documented in this encounter [facility] 12-28-2024 Note HNO ID: [id number] Author: CARMELITA TRAN MA Service: ? Author Type: Dough Cutting Machine Operator Type: Progress Notes Filed: 12/28/2024 08:40 Note Text: Patient presents with: Left Knee - Follow Up, Knee Pain Right Knee - Follow Up, Knee Pain: 14 weeks post visit OA Bilateral knees with injections given Wants injections AMB ROOMING INTAKE FLOWSHEET DATA Pain Pain Location: Knee-Left Description: Sharp Duration Amount of Time: (Ongoing) Frequency: Intermittent (Occurs with certain movements) Intervention/Comfort measure: (none) Taking no med's for the pain. Here for injections bilateral knees. [facility] 12-22-2024 Progress note Formatting of t his note might be different from the original. Namebrand Synthroid 25 mcg ordered. [facility] 12-22-2024 Miscellaneous Notes Namebrand Synthroid 25 mcg ordered. Patient was made aware of the results. Patient verbalizes understanding. Patient is asking for name brand only synthroid to be sent to the pharmacy. Her niece suggested it and patient is requesting. Michelle Marie Ma ----- Message from Orquidea Robertson sent at 12/22/2024 11:34 AM EDT ----- Please let patient low that sodium level is low. Please restrict fluids to 1500 mL daily. We need to recheck her renal panel in 2 weeks. It appears that you are a little hypothyroid. I am ordering levothyroxine 25 mcg to take daily half an hour to 1 hour before taking any other medications or food. Recheck your thyroid level in 8 weeks, around [address] Carmona is away and I did not want this to wait. Labs and the thyroid have been ordered. ----- Message ----- From: Joslyn, Background User Sent: 12/18/2024 8:26 PM EDT To: Rosalino Carmona MD Please let patient low that sodium level is low. Please restrict fluids to 1500 mL daily. We need to recheck her renal panel in 2 weeks. It appears that you are a little hypothyroid. I am ordering levothyroxine 25 mcg to take daily half an hour to 1 hour before taking any other medications or food. Recheck your thyroid level in 8 weeks, around [address] Carmona is away and I did not want this to wait. Labs and the thyroid have been ordered. documented in this encounter [facility] 12-22-2024 Telephone encounter Note Patient was made aware of the results. Patient verbalizes understanding. Patient is asking for name brand only synthroid to be sent to the pharmacy. Her niece suggested it and patient is requesting. Michelle Marie Ma [facility] 12-22-2024 Telephone encounter Note ----- Message from Orquidea Robertson sent at 12/22/2024 11:34 AM EDT ----- Please let patient low that sodium level is low. Please restrict fluids to 1500 mL daily. We need to recheck her renal panel in 2 weeks. It appears that you are a little hypothyroid. I am ordering levothyroxine 25 mcg to take daily half an hour to 1 hour before taking any other medications or food. Recheck your thyroid level in 8 weeks, around [address] Carmona is away and I did not want this to wait. Labs and the thyroid have been ordered. ----- Message ----- From: Joslyn, Background User Sent: 12/18/2024 8:26 PM EDT To: Rosalino Carmona MD [facility] 12-22-2024 Progress note Formatting of t his note might be different from the original. Please let patient low that sodium level is low. Please restrict fluids to 1500 mL daily. We need to recheck her renal panel in 2 weeks. It appears that you are a little hypothyroid. I am ordering levothyroxine 25 mcg to take daily half an hour to 1 hour before taking any other medications or food. Recheck your thyroid level in 8 weeks, around [address] Carmona is away and I did not want this to wait. Labs and the thyroid have been ordered. [facility] 12-10-2024 Telephone encounter Note Pt called and is notified of providers results and instructions. Pt voices understanding. Gergoria Anderson RN [facility] 12-10-2024 Miscellaneous Notes Pt called and is notified of providers results and instructions. Pt voices understanding. Gregoria Anderson RN Labs are ok except renal function is slightly low. Thyroids is borderline. Push fluids and recheck labs in two weeks. documented in this encounter [facility] 12-10-2024 Telephone encounter Note Labs are ok except renal function is slightly low. Thyroids is borderline. Push fluids and recheck labs in two weeks. [facility] 12-02-2024 Note HNO ID: [id number] Author: ROSALINO CARMONA MD Service: ? Author Type: Physician Type: Progress Notes Filed: 12/02/2024 09:02 Note Text: Tricia Granados is an 84-year-old female with a history of atrial fibrillation, presenting for evaluation of sinus congestion, fatigue, and weight loss. HPI Sinus Congestion: - Onset: 1 week ago. - Symptoms: Nasal congestion, rhinorrhea (primarily clear, occasionally yellow), post-nasal drip causing cough, dizziness with quick head movements, and pressure over maxillary sinuses. - Denies sore throat, otalgia, dyspnea, chest discomfort, abdominal pain, nausea, or emesis. - No home COVID testing performed. Fatigue: - Reports persistent fatigue, attributing it to aging. - Denies palpitations or dizziness. - Dyspnea only with exertion. - Denies melena, hematochezia, diarrhea, or constipation. Weight Loss: - Lost 23 lbs over the past 11 months. - Attributes weight loss to decreased appetite and smaller portion sizes. - Increased fruit consumption. - Denies intentional weight loss efforts. MEDICATIONS: Current Outpatient Medications Medication Sig losartan (COZAAR) 100 mg tablet Take 1 tablet by mouth once daily. apixaban (ELIQUIS) 5 mg tab(s) Take 5 mg by mouth two times a day. hydrALAZINE (APRESOLINE) 50 mg tablet Take 1 tablet by mouth three times a day. For blood pressure metoprolol succinate ER (TOPROL XL) 50 mg 24 hr tablet Take 1 tablet by mouth two times a day. amLODIPine (NORVASC) 10 mg tablet Take 1 tablet by mouth every afternoon. amoxicillin-clavulanate potassium (AUGMENTIN) 875-125 mg per tablet Take 1 tablet by mouth every 12 hours for 7 days. No current facility-administered medications for this visit. ALLERGIES: ALLERGIES Allergen Reactions Caffeine Intolerance PAST MEDICAL HISTORY Diagnosis Date Anxiety Atrial fibrillation (HCC) HTN (hypertension) Seborrheic keratosis right ear PAST SURGICAL HISTORY Procedure Laterality Date HYSTERECTOMY bleediing issues. no malignancy LAPAROSCOPIC CHOLECYSTECTOMY 01/11/1995 REMV CATARACT EXTRACAP,INSERT LENS Right 12/03/2023 REMV CATARACT EXTRACAP,INSERT LENS Left 12/12/2023 FAMILY HISTORY Problem Relation Age of Onset Hypertension Mother other (chf) Mother Stroke Father Ischemic Heart Disease Sister SOCIAL HISTORY[1] Reviewed current medications, allergies, past medical history, surgical history, family history and social history today. REVIEW OF SYSTEMS Constitutional: (+) fatigue, (+) weight loss, (-) fever, (-) chills Ears/Nose/Mouth/Throat: (+) nasal congestion, (+) rhinorrhea, (+) facial pressure, (-) sore throat, (-) ear pain Cardiovascular: (+) ankle swelling, (-) chest discomfort, (-) palpitations Respiratory: (+) productive cough, (+) exertional dyspnea Gastrointestinal: (-) abdominal pain, (-) nausea, (-) vomiting, (-) diarrhea, (-) constipation, (-) melena Neurological: (-) dizziness Hematologic/Lymphatic: (-) bleeding tendency HEALTH MAINTENANCE: Reviewed health maintenance issues today and recommended the following in detail. Medicare Annual Wellness Visit Never done LAB REVIEWED: VITALS: BP 110/60 Pulse (!) 47 Wt 85.5 kg (188 lb 6.4 oz) SpO2 97% BMI 30.41 kg/m? Last 4 Encounter Wt Readings: Date: Wt: 12/02/2024 85.5 kg (188 lb 6.4 oz) 05/26/2024 88.5 kg (195 lb) 04/28/2024 89.8 kg (198 lb) 01/24/2024 0 kg () PHYSICAL EXAMINATION: GENERAL: NAD, alert and oriented. SKIN: Unremarkable, no rash or skin lesions. HEAD: Normocephalic. EYES: PERRLA, EOMI, conjunctiva clear. EARS: External ears normal, canals clear, TM's normal. NOSE/SINUSES: Nares normal. Septum midline. Mild pressure over maxillary sinuses. OROPHARYNX: Lips, mucosa, and tongue normal, good dentition. No oral lesions noted. NECK: Supple, no lymphadenopathy, normal thyroid, no carotid bruits. LUNGS: Clear to auscultation bilaterally, no wheezes/rhonchi/rales. HEART: Regular rate and rhythm, no murmurs. No ectopy. EXTREMITIES: Normal, no deformities, no skin discoloration, no edema. ABDOMEN: Soft, non-tender, bowel sounds present. NEURO: Awake, alert and oriented x3, cranial nerves II-XII grossly intact, normal gait, no involuntary motions. ASSESSMENT AND PLAN 1. Primary hypertension (I10) 2. Paroxysmal atrial fibrillation (HCC) (I48.0) 3. Chronic anticoagulation (Z79.01) - Blood pressure well controlled today at 110/60 mmHg. - Heart rate stable, typically in the 50s-60s. - No current palpitations, dizziness, or increased dyspnea. - Continue metoprolol as prescribed; discussed that fatigue may be a side effect, but medication is important for rate control in AFib. - Refill amlodipine, hydralazine, metoprolol, and Eliquis. - Order fasting labs (CBC, CMP, blood sugar, kidney function, liver function, cholesterol, thyroid) to monitor for anemia, thyroid dysfunction, and medication effects. - Will send lab re (more content not included)... [facility] 12-02-2024 History of Present illness Narrative Tricia Granados is an 84-year-old female with a history of atrial fibrillation, presenting for evaluation of sinus congestion, fatigue, and weight loss. HPI Sinus Congestion: - Onset: 1 week ago. - Symptoms: Nasal congestion, rhinorrhea (primarily clear, occasionally yellow), post-nasal drip causing cough, dizziness with quick head movements, and pressure over maxillary sinuses. - Denies sore throat, otalgia, dyspnea, chest discomfort, abdominal pain, nausea, or emesis. - No home COVID testing performed. Fatigue: - Reports persistent fatigue, attributing it to aging. - Denies palpitations or dizziness. - Dyspnea only with exertion. - Denies melena, hematochezia, diarrhea, or constipation. Weight Loss: - Lost 23 lbs over the past 11 months. - Attributes weight loss to decreased appetite and smaller portion sizes. - Increased fruit consumption. - Denies intentional weight loss efforts. MEDICATIONS: Current Outpatient Medications Medication Sig losartan (COZAAR) 100 mg tablet Take 1 tablet by mouth once daily. apixaban (ELIQUIS) 5 mg tab(s) Take 5 mg by mouth two times a day. hydrALAZINE (APRESOLINE) 50 mg tablet Take 1 tablet by mouth three times a day. For blood pressure metoprolol succinate ER (TOPROL XL) 50 mg 24 hr tablet Take 1 tablet by mouth two times a day. amLODIPine (NORVASC) 10 mg tablet Take 1 tablet by mouth every afternoon. amoxicillin-clavulanate potassium (AUGMENTIN) 875-125 mg per tablet Take 1 tablet by mouth every 12 hours for 7 days. No current facility-administered medications for this visit. ALLERGIES: ALLERGIES Allergen Reactions Caffeine Intolerance PAST MEDICAL HISTORY Diagnosis Date Anxiety Atrial fibrillation (HCC) HTN (hypertension) Seborrheic keratosis right ear PAST SURGICAL HISTORY Procedure Laterality Date HYSTERECTOMY 1970's bleediing issues. no malignancy LAPAROSCOPIC CHOLECYSTECTOMY 01/11/1995 REMV CATARACT EXTRACAP,INSERT LENS Right 12/03/2023 REMV CATARACT EXTRACAP,INSERT LENS Left 12/12/2023 FAMILY HISTORY Problem Relation Age of Onset Hypertension Mother other (chf) Mother Stroke Father Ischemic Heart Disease Sister SOCIAL HISTORY[1] Reviewed current medications, allergies, past medical history, surgical history, family history and social history today. REVIEW OF SYSTEMS Constitutional: (+) fatigue, (+) weight loss, (-) fever, (-) chills Ears/Nose/Mouth/Throat: (+) nasal congestion, (+) rhinorrhea, (+) facial pressure, (-) sore throat, (-) ear pain Cardiovascular: (+) ankle swelling, (-) chest discomfort, (-) palpitations Respiratory: (+) productive cough, (+) exertional dyspnea Gastrointestinal: (-) abdominal pain, (-) nausea, (-) vomiting, (-) diarrhea, (-) constipation, (-) melena Neurological: (-) dizziness Hematologic/Lymphatic: (-) bleeding tendency HEALTH MAINTENANCE: Reviewed health maintenance issues today and recommended the following in detail. Medicare Annual Wellness Visit Never done LAB REVIEWED: VITALS: BP 110/60 Pulse (!) 47 Wt 85.5 kg (188 lb 6.4 oz) SpO2 97% BMI 30.41 kg/m Last 4 Encounter Wt Readings: Date: Wt: 12/02/2024 85.5 kg (188 lb 6.4 oz) 05/26/2024 88.5 kg (195 lb) 04/28/2024 89.8 kg (198 lb) 01/24/2024 0 kg () PHYSICAL EXAMINATION: GENERAL: NAD, alert and oriented. SKIN: Unremarkable, no rash or skin lesions. HEAD: Normocephalic. EYES: PERRLA, EOMI, conjunctiva clear. EARS: External ears normal, canals clear, TM's normal. NOSE/SINUSES: Nares normal. Septum midline. Mild pressure over maxillary sinuses. OROPHARYNX: Lips, mucosa, and tongue normal, good dentition. No oral lesions noted. NECK: Supple, no lymphadenopathy, normal thyroid, no carotid bruits. LUNGS: Clear to auscultation bilaterally, no wheezes/rhonchi/rales. HEART: Regular rate and rhythm, no murmurs. No ectopy. EXTREMITIES: Normal, no deformities, no skin discoloration, no edema. ABDOMEN: Soft, non-tender, bowel sounds present. NEURO: Awake, alert and oriented x3, cranial nerves II-XII grossly intact, normal gait, no involuntary motions. ASSESSMENT AND PLAN 1. Primary hypertension (I10) 2. Paroxysmal atrial fibrillation (HCC) (I48.0) 3. Chronic anticoagulation (Z79.01) - Blood pressure well controlled today at 110/60 mmHg. - Heart rate stable, typically in the 50s-60s. - No current palpitations, dizziness, or increased dyspnea. - Continue metoprolol as prescribed; discussed that fatigue may be a side effect, but medication is important for rate control in AFib. - Refill amlodipine, hydralazine, metoprolol, and Eliquis. - Order fasting labs (CBC, CMP, blood sugar, kidney function, liver function, cholesterol, thyroid) to monitor for anemia, thyroid dysfunction, and medication effects. - Will send lab results to cardiology (Demetrice Greer NP and Dr. Mchugh). - Follow-up with cardiology next month. 4. Anxiety (F41.9) -stablel 5. Bacterial sinusitis (J32.9) - Symptoms present for one week with persistent congestion, clear to occasionally yellow nasal discharge, maxillary sinus pressure, and postnasal drip with cough; no fever, chills, sore throat, or ear pain. - Exam: Maxillary sinus tenderness, no lymphadenopathy, ears and throat clear. - Start Augmentin; discussed potential side effects including upset stomach and diarrhea. - Advised to monitor for worsening symptoms or lack of improvement within one week and to contact the office if needed. - No COVID or flu testing indicated at this time. 6. Fatigue, unspecified type (R53.83) - Chronic fatigue, likely multifactorial (age, medication effects, possible anemia or thyroid dysfunction). - Order fasting labs (CBC, CMP, thyroid) to evaluate for anemia and thyroid dysfunction. (See patient after visit summary for additional instructions to patient) Rosalino Carmona MD Recording using [employer] software for draft documentation of the visit was discussed with the patient/authorized student services representative; all questions welcomed and answered. Patient/authorized student services representative agreed to proceed [1] Social History Tobacco Use Smoking status: Former Smokeless tobacco: Never Vaping Use Vaping status: Never Used Substance Use Topics Alcohol use: No Drug use: No documented in this encounter [facility] 12-02-2024 Instructions Rosalino Carmona MD - 12/02/2024 8:54 AM EDT - Start amoxicillin (mid-range dose) for 7 days for your sinus infection; prescription sent to [facility] in [place]. - Refill your amlodipine, hydralazine, and metoprolol as before. - Continue Eliquis as directed; let us know if you notice any unusual bleeding. - Schedule fasting blood work in the next week or two: CBC, metabolic panel (blood sugar, kidney, and liver tests), cholesterol, and thyroid. You may drink water, black coffee, and take your pills, but do not eat for 12 hours before the draw. - We will send your lab results to your cardiologists, Demetrice Greer and Dr. Mchugh. - Keep your cardiology appointment next month with Demetrice Greer as planned. - Wear support hose as needed to help reduce ankle swelling. - If your sinus symptoms do not improve within about a week or if you feel significantly worse, contact the office. documented in this encounter [facility] 09-21-2024 Note HNO ID: [id number] Author: BREANNA CANSECO PA-C Service: ? Author Type: Physician Post Framer Type: Progress Notes Filed: 09/21/2024 09:10 Note Text: Patient presents for repeat bilateral knee corticosteroid injections, right knee injection was extremely beneficial, got 2 weeks with left knee injection, previously was getting 3 months of relief. Is maybe interested in trying some viscosupplementation. Large Joint Arthro/Inj: bilateral knee joints 09/21/2024 9:10 AM The procedure site was prepped in the usual sterile fashion. Site: bilateral knee joints Medications (Right): 6 mg betamethasone acetate-betamethasone sodium phosphate 6 mg/mL Medications (Left): 6 mg betamethasone acetate-betamethasone sodium phosphate 6 mg/mL Anesthetics (Right): 5 mL lidocaine (PF) 10 mg/mL (1 %) Anesthetics (Left): 5 mL lidocaine (PF) 10 mg/mL (1 %) Outcome: Tolerated well, no immediate complications Post-injection instructions were reviewed with the patient and the patient voiced understanding of these instructions. Informed Consent Consent Obtained: Verbal [place] Protocol A moment to CARE was completed. SIGN IN Sign in communication not applicable due to emergent procedure. Personnel directly involved with the procedure wore the appropriate PPE. Special Equipment: N/A Patient/Surrogate Stated/Verified: Patient name, Date of , Relevant allergies and Intended procedure TIME OUT Relevant labs, photos, and/or imaging studies have been reviewed. Consent documented and matches the intended procedure. Correct side/site marked and visible. Medications required for procedure verified. No fire risk assessment and interventions applicable. No implant(s) inserted. SIGN OUT No specimen collected. No post-procedure POC communication to the patient's multidisciplinary team (including the bedside nurse for hospitalized patients) applicable. [facility] 09-21-2024 History of Present illness Narrative Associated Order(s): Large Joint Arthro/Inj: bilateral knee joints Post-Procedure Diagnose(s): Primary osteoarthritis of both knees Patient presents for repeat bilateral knee corticosteroid injections, right knee injection was extremely beneficial, got 2 weeks with left knee injection, previously was getting 3 months of relief. Is maybe interested in trying some viscosupplementation. Large Joint Arthro/Inj: bilateral knee joints 09/21/2024 9:10 AM The procedure site was prepped in the usual sterile fashion. Site: bilateral knee joints Medications (Right): 6 mg betamethasone acetate-betamethasone sodium phosphate 6 mg/mL Medications (Left): 6 mg betamethasone acetate-betamethasone sodium phosphate 6 mg/mL Anesthetics (Right): 5 mL lidocaine (PF) 10 mg/mL (1 %) Anesthetics (Left): 5 mL lidocaine (PF) 10 mg/mL (1 %) Outcome: Tolerated well, no immediate complications Post-injection instructions were reviewed with the patient and the patient voiced understanding of these instructions. Informed Consent Consent Obtained: Verbal [place] Protocol A moment to CARE was completed. SIGN IN Sign in communication not applicable due to emergent procedure. Personnel directly involved with the procedure wore the appropriate PPE. Special Equipment: N/A Patient/Surrogate Stated/Verified: Patient name, Date of , Relevant allergies and Intended procedure TIME OUT Relevant labs, photos, and/or imaging studies have been reviewed. Consent documented and matches the intended procedure. Correct side/site marked and visible. Medications required for procedure verified. No fire risk assessment and interventions applicable. No implant(s) inserted. SIGN OUT No specimen collected. No post-procedure POC communication to the patient's multidisciplinary team (including the bedside nurse for hospitalized patients) applicable. Patient presents with: Left Knee - Injections, Established Patient Right Knee - Injections, Established Patient: 15 weeks post visit OA Bilateral knees with injections given Wants injections AMB ROOMING INTAKE FLOWSHEET DATA Pain Pain Level: 6 Pain Location: Knee-Left Description: Stiffness Duration Amount of Time: (Ongoing) Frequency: Intermittent (Occurs when getting in and out of the car) Intervention/Comfort measure: Positioning Patient states the injection in her left knee only last for 2 weeks. The injection in her right knee is continuing to help. Taking no med's for the pain. Here for injections today. documented in this encounter [facility] 09-21-2024 Note HNO ID: [id number] Author: CARMELITA TRAN MA Service: ? Author Type: Dough Cutting Machine Operator Type: Progress Notes Filed: 09/21/2024 09:10 Note Text: Patient presents with: Left Knee - Injections, Established Patient Right Knee - Injections, Established Patient: 15 weeks post visit OA Bilateral knees with injections given Wants injections AMB ROOMING INTAKE FLOWSHEET DATA Pain Pain Level: 6 Pain Location: Knee-Left Description: Stiffness Duration Amount of Time: (Ongoing) Frequency: Intermittent (Occurs when getting in and out of the car) Intervention/Comfort measure: Positioning Patient states the injection in her left knee only last for 2 weeks. The injection in her right knee is continuing to help. Taking no med's for the pain. Here for injections today. [facility] 06-08-2024 Note HNO ID: [id number] Author: BREANNA CANSECO PA-C Service: ? Author Type: Physician Post Framer Type: Progress Notes Filed: 06/08/2024 08:32 Note Text: Large Joint Arthro/Inj: bilateral knee joints Informed Consent Consent Obtained: Verbal [place] Protocol A moment to CARE was completed. SIGN IN Sign in communication not applicable due to emergent procedure. Personnel directly involved with the procedure wore the appropriate PPE. Special Equipment: N/A Patient/Surrogate Stated/Verified: Patient name, Date of , Relevant allergies and Intended procedure TIME OUT Relevant labs, photos, and/or imaging studies have been reviewed. Intended patient and procedure match the source document(s). Consent documented and matches the intended procedure. Correct side/site marked and visible. Medications required for procedure verified. No fire risk assessment and interventions applicable. No implant(s) inserted.06/08/2024 8:32 AM The procedure site was prepped in the usual sterile fashion. Site: bilateral knee joints Medications (Right): 6 mg betamethasone acetate-betamethasone sodium phosphate 6 mg/mL Medications (Left): 6 mg betamethasone acetate-betamethasone sodium phosphate 6 mg/mL Anesthetics (Right): 5 mL lidocaine (PF) 10 mg/mL (1 %) Anesthetics (Left): 5 mL lidocaine (PF) 10 mg/mL (1 %) Outcome: Tolerated well, no immediate complications Post-injection instructions were reviewed with the patient and the patient voiced understanding of these instructions. SIGN OUT No specimen collected. No instruments, equipment or retained foreign bodies applicable. Post-procedure follow-up management communicated and Plan of Care Visit completed when applicable [facility] 06-08-2024 History of Present illness Narrative Associated Order(s): Large Joint Arthro/Inj: bilateral knee joints Post-Procedure Diagnose(s): Primary osteoarthritis of both knees Large Joint Arthro/Inj: bilateral knee joints Informed Consent Consent Obtained: Verbal [place] Protocol A moment to CARE was completed. SIGN IN Sign in communication not applicable due to emergent procedure. Personnel directly involved with the procedure wore the appropriate PPE. Special Equipment: N/A Patient/Surrogate Stated/Verified: Patient name, Date of , Relevant allergies and Intended procedure TIME OUT Relevant labs, photos, and/or imaging studies have been reviewed. Intended patient and procedure match the source document(s). Consent documented and matches the intended procedure. Correct side/site marked and visible. Medications required for procedure verified. No fire risk assessment and interventions applicable. No implant(s) inserted.06/08/2024 8:32 AM The procedure site was prepped in the usual sterile fashion. Site: bilateral knee joints Medications (Right): 6 mg betamethasone acetate-betamethasone sodium phosphate 6 mg/mL Medications (Left): 6 mg betamethasone acetate-betamethasone sodium phosphate 6 mg/mL Anesthetics (Right): 5 mL lidocaine (PF) 10 mg/mL (1 %) Anesthetics (Left): 5 mL lidocaine (PF) 10 mg/mL (1 %) Outcome: Tolerated well, no immediate complications Post-injection instructions were reviewed with the patient and the patient voiced understanding of these instructions. SIGN OUT No specimen collected. No instruments, equipment or retained foreign bodies applicable. Post-procedure follow-up management communicated and Plan of Care Visit completed when applicable Patient presents with: Right Knee - Follow Up, Injections Left Knee - Follow Up, Injections: 14 weeks post visit OA bilateral knees with injections given Wants injections AMB ROOMING INTAKE FLOWSHEET DATA Patient denies any pain today. Here for cortisone injections bilateral knees documented in this encounter [facility] 06-08-2024 Note HNO ID: [id number] Author: CARMELITA TRAN MA Service: ? Author Type: Dough Cutting Machine Operator Type: Progress Notes Filed: 06/08/2024 08:32 Note Text: Patient presents with: Right Knee - Follow Up, Injections Left Knee - Follow Up, Injections: 14 weeks post visit OA bilateral knees with injections given Wants injections AMB ROOMING INTAKE FLOWSHEET DATA Patient denies any pain today. Here for cortisone injections bilateral knees [facility] 05-26-2024 Instructions Orquidea Robertson APRN.CNP - 05/26/2024 8:28 AM EST - AMOXICILLIN 875 MG-POTASSIUM CLAVULANATE 125 MG TABLET - Saline nasal spray frequently while on antibiotic - follow up in 6 months documented in this encounter [facility] 05-26-2024 Note HNO ID: [id number] Author: ORQUIDEA ROBERTSON APRN.CNP Service: ? Author Type: Nurse Practitioner Type: Progress Notes Filed: 05/26/2024 09:04 Note Text: This is a 83 year old female who presents today with: Patient presents with: Follow Up HISTORY OF PRESENT ILLNESS: Tricia Granados is a 83 year old female. Patient presents with: Follow Up Feeling better. Stopped sertraline. Didn't like the side effects. Had a stomach virus. Diarrhea. Resolved. BP at home: 139/59, HR 68 124/54, 68 122/54, 53 133/61, 60 135/53, 52 132/53, 53 Daughter wants her to take Prevagen Sinus pressure and drainage, wanting antibiotics Not fatigued No headache No chest congestion + sinus drainage Coughing No body aches PAST MEDICAL HISTORY: PAST MEDICAL HISTORY Diagnosis Date Anxiety Atrial fibrillation (HCC) HTN (hypertension) Seborrheic keratosis right ear PAST SURGICAL HISTORY Procedure Laterality Date HYSTERECTOMY 1969' bleediing issues. no malignancy LAPAROSCOPIC CHOLECYSTECTOMY 01/11/1995 REMV CATARACT EXTRACAP,INSERT LENS Right 12/03/2023 REMV CATARACT EXTRACAP,INSERT LENS Left 12/12/2023 ALLERGIES Caffeine MEDICATIONS Current Outpatient Medications Medication Sig metoprolol succinate ER (TOPROL XL) 50 mg 24 hr tablet Take 50 mg by mouth two times a day. amLODIPine (NORVASC) 10 mg tablet Take 1 tablet by mouth every afternoon. hydrALAZINE (APRESOLINE) 50 mg tablet Take 1 tablet by mouth three times a day. For blood pressure losartan (COZAAR) 100 mg tablet Take 1 tablet by mouth once daily. apixaban (ELIQUIS) 5 mg tab(s) Take 5 mg by mouth two times a day. sertraline (ZOLOFT) 50 mg tablet Take 1 tablet by mouth once daily. Take 1/2 tab once a day orally for one week then 1 tab once a day (Patient not taking: Reported on 05/26/2024) No current facility-administered medications for this visit. FAMILY HISTORY Problem Relation Age of Onset Hypertension Mother other (chf) Mother Stroke Father Ischemic Heart Disease Sister Social History Tobacco Use Smoking status: Former Smokeless tobacco: Never Vaping Use Vaping status: Never Used Substance Use Topics Alcohol use: No Drug use: No EXAM: BP 157/69 Pulse 75 Ht 167.6 cm (5' 6") Wt 88.5 kg (195 lb) BMI 31.47 kg/m? PHYSICAL EXAM: Physical Exam Vitals reviewed. Constitutional: Appearance: Normal appearance. HENT: Head: Normocephalic. Right Ear: Tympanic membrane, ear canal and external ear normal. There is no impacted cerumen. Left Ear: Tympanic membrane, ear canal and external ear normal. There is no impacted cerumen. Nose: Congestion and rhinorrhea present. Comments: Sinus pressure and pain maxillary Nasal turbinates very red and excoriated Mouth/Throat: Pharynx: No oropharyngeal exudate or posterior oropharyngeal erythema. Neck: Vascular: No carotid bruit. Cardiovascular: Rate and Rhythm: Normal rate and regular rhythm. Pulses: Normal pulses. Heart sounds: Normal heart sounds. Comments: Soft JOSI @ sternal border, + S3 Pulmonary: Effort: Pulmonary effort is normal. Breath sounds: Normal breath sounds. Abdominal: Palpations: Abdomen is soft. Musculoskeletal: General: Normal range of motion. Lymphadenopathy: Cervical: No cervical adenopathy. Skin: General: Skin is warm and dry. Neurological: Mental Status: She is alert and oriented to person, place, and time. Psychiatric: Mood and Affect: Mood normal. Behavior: Behavior normal. LABS: ASSESSMENT/PLAN: 1. Acute recurrent maxillary sinusitis - ICD9: 461.0, ICD10: J01.01 (primary diagnosis) - Will begin treatment with Augmentin 875 mg PO BID for 10 days - AMOXICILLIN 875 MG-POTASSIUM CLAVULANATE 125 MG TABLET 2. Anxiety - ICD9: 300.00, ICD10: F41.9 Quit sertraline but feeling better 3. Primary hypertension - ICD9: 401.9, ICD10: I10 - Controlled - Recommend home blood pressure monitoring, to bring results to next visit - Encouraged sodium restriction, DASH or Mediterranean diet - Recommend regular aerobic exercise Discussed treatment plan and patient voices understanding. Patient's questions answered appropriately. Medications and potential side effects were discussed and patient voices understanding. Return to the office as scheduled or as needed for worsening/no improvement. Orquidea Robertson APRN.[facility] 05-26-2024 History of Present illness Narrative This is a 83 year old female who presents today with: Patient presents with: Follow Up HISTORY OF PRESENT ILLNESS: Tricia Granados is a 83 year old female. Patient presents with: Follow Up Feeling better. Stopped sertraline. Didn't like the side effects. Had a stomach virus. Diarrhea. Resolved. BP at home: 139/59, HR 68 124/54, 68 122/54, 53 133/61, 60 135/53, 52 132/53, 53 Daughter wants her to take Prevagen Sinus pressure and drainage, wanting antibiotics Not fatigued No headache No chest congestion + sinus drainage Coughing No body aches PAST MEDICAL HISTORY: PAST MEDICAL HISTORY Diagnosis Date Anxiety Atrial fibrillation (HCC) HTN (hypertension) Seborrheic keratosis right ear PAST SURGICAL HISTORY Procedure Laterality Date HYSTERECTOMY 1970's bleediing issues. no malignancy LAPAROSCOPIC CHOLECYSTECTOMY 01/11/1995 REMV CATARACT EXTRACAP,INSERT LENS Right 12/03/2023 REMV CATARACT EXTRACAP,INSERT LENS Left 12/12/2023 ALLERGIES Caffeine MEDICATIONS Current Outpatient Medications Medication Sig metoprolol succinate ER (TOPROL XL) 50 mg 24 hr tablet Take 50 mg by mouth two times a day. amLODIPine (NORVASC) 10 mg tablet Take 1 tablet by mouth every afternoon. hydrALAZINE (APRESOLINE) 50 mg tablet Take 1 tablet by mouth three times a day. For blood pressure losartan (COZAAR) 100 mg tablet Take 1 tablet by mouth once daily. apixaban (ELIQUIS) 5 mg tab(s) Take 5 mg by mouth two times a day. sertraline (ZOLOFT) 50 mg tablet Take 1 tablet by mouth once daily. Take 1/2 tab once a day orally for one week then 1 tab once a day (Patient not taking: Reported on 05/26/2024) No current facility-administered medications for this visit. FAMILY HISTORY Problem Relation Age of Onset Hypertension Mother other (chf) Mother Stroke Father Ischemic Heart Disease Sister Social History Tobacco Use Smoking status: Former Smokeless tobacco: Never Vaping Use Vaping status: Never Used Substance Use Topics Alcohol use: No Drug use: No EXAM: BP 157/69 Pulse 75 Ht 167.6 cm (5' 6") Wt 88.5 kg (195 lb) BMI 31.47 kg/m PHYSICAL EXAM: Physical Exam Vitals reviewed. Constitutional: Appearance: Normal appearance. HENT: Head: Normocephalic. Right Ear: Tympanic membrane, ear canal and external ear normal. There is no impacted cerumen. Left Ear: Tympanic membrane, ear canal and external ear normal. There is no impacted cerumen. Nose: Congestion and rhinorrhea present. Comments: Sinus pressure and pain maxillary Nasal turbinates very red and excoriated Mouth/Throat: Pharynx: No oropharyngeal exudate or posterior oropharyngeal erythema. Neck: Vascular: No carotid bruit. Cardiovascular: Rate and Rhythm: Normal rate and regular rhythm. Pulses: Normal pulses. Heart sounds: Normal heart sounds. Comments: Soft JOSI @ sternal border, + S3 Pulmonary: Effort: Pulmonary effort is normal. Breath sounds: Normal breath sounds. Abdominal: Palpations: Abdomen is soft. Musculoskeletal: General: Normal range of motion. Lymphadenopathy: Cervical: No cervical adenopathy. Skin: General: Skin is warm and dry. Neurological: Mental Status: She is alert and oriented to person, place, and time. Psychiatric: Mood and Affect: Mood normal. Behavior: Behavior normal. LABS: ASSESSMENT/PLAN: 1. Acute recurrent maxillary sinusitis - ICD9: 461.0, ICD10: J01.01 (primary diagnosis) - Will begin treatment with Augmentin 875 mg PO BID for 10 days - AMOXICILLIN 875 MG-POTASSIUM CLAVULANATE 125 MG TABLET 2. Anxiety - ICD9: 300.00, ICD10: F41.9 Quit sertraline but feeling better 3. Primary hypertension - ICD9: 401.9, ICD10: I10 - Controlled - Recommend home blood pressure monitoring, to bring results to next visit - Encouraged sodium restriction, DASH or Mediterranean diet - Recommend regular aerobic exercise Discussed treatment plan and patient voices understanding. Patient's questions answered appropriately. Medications and potential side effects were discussed and patient voices understanding. Return to the office as scheduled or as needed for worsening/no improvement. Orquidea Robertson APRN.[employer] [facility] [facility] documented in this encounter [facility] 05-05-2024 Telephone encounter Note Patient informed and verbalized understanding. Cindy Aguiar MA [facility] 05-05-2024 Miscellaneous Notes Patient informed and verbalized understanding. Cindy Aguiar MA Avoid dairy. May not be med related. If continues, needs seen Pt called in and reports she started 2 new heart medications in February Amlodipine and Hydralazine, and she increased her Metoprolol. She said the Origination Specialist discontinued her Diltiazem. She though maybe these medication had given her diarrhea, but her Origination Specialist didn't think so and told her to try Metamucil to thicken her BMs up, but the call PCP first. Pt said she was in to see PCP recently on 04/28/24 and she didn't have the diarrhea then, but right after it started. Pt states she got the flu and the stomach flu and the pharmacy told her to take Tums and jose gabriella for upset stomach. Pt reports she only has diarrhea in the morning. She will have one large one, then think she is done and have to go back like two more times. I asked if she had any more through out the day and she said no, but her stomach would feel crampy and she would take the Tums and jose gabriella for that. She states her BM is orange and is the food she ate from the night before. She reports it's watery, but has some substance to it and squirts out. She said she had 3 tablets of Imodium and she took those and those days she didn't have diarrhea. Please call and advise on if Pt should take Metamucil, or if there is something else he would recommend. documented in this encounter [facility] 05-05-2024 Telephone encounter Note Avoid dairy. May not be med related. If continues, needs seen [facility] 05-05-2024 Telephone encounter Note Pt called in and reports she started 2 new heart medications in February Amlodipine and Hydralazine, and she increased her Metoprolol. She said the Origination Specialist discontinued her Diltiazem. She though maybe these medication had given her diarrhea, but her Origination Specialist didn't think so and told her to try Metamucil to thicken her BMs up, but the call PCP first. Pt said she was in to see PCP recently on 04/28/24 and she didn't have the diarrhea then, but right after it started. Pt states she got the flu and the stomach flu and the pharmacy told her to take Tums and jose gabriella for upset stomach. Pt reports she only has diarrhea in the morning. She will have one large one, then think she is done and have to go back like two more times. I asked if she had any more through out the day and she said no, but her stomach would feel crampy and she would take the Tums and jose gabriella for that. She states her BM is orange and is the food she ate from the night before. She reports it's watery, but has some substance to it and squirts out. She said she had 3 tablets of Imodium and she took those and those days she didn't have diarrhea. Please call and advise on if Pt should take Metamucil, or if there is something else he would recommend. [facility] 04-29-2024 Telephone encounter Note Pt called and is notified of providers message and instructions. Pt voices understanding. I talked with her and she is going to try the medication and will let provider know how it is going when she comes in for her appointment. Gregoria Anderson RN [facility] 04-29-2024 Miscellaneous Notes Pt called and is notified of providers message and instructions. Pt voices understanding. I talked with her and she is going to try the medication and will let provider know how it is going when she comes in for her appointment. Gregoria Anderson RN That is not a significant side effect. The most common side effect of any medicine is none. That is just listed because someone during the med trials not suprisingly had nose bleeds. That is the danger of reading side effect profiles without having pharmacological background to understand what they mean. Pt reports she read the information on the sertraline 50 mg, and is not at all comfortable with it. States one of the side effects is nose bleeds and she recently had to have her nose cauterized from a nose bleed, and does not want to go through that again. Pt states she'd rather live with her anxiety than the side effects of this medication. Reports the heart doctor thought part of her elevated BP problem was her anxiety- which is why she was considering medication in the first place. Asking if she still needs to come to the f/u appt in one month, which was scheduled to f/u on the sertraline. Pt states she is not going to take the sertraline. Please advise pt. documented in this encounter [facility] 04-28-2024 Telephone encounter Note That is not a significant side effect. The most common side effect of any medicine is none. That is just listed because someone during the med trials not suprisingly had nose bleeds. That is the danger of reading side effect profiles without having pharmacological background to understand what they mean. [facility] 04-28-2024 Telephone encounter Note Pt reports she read the information on the sertraline 50 mg, and is not at all comfortable with it. States one of the side effects is nose bleeds and she recently had to have her nose cauterized from a nose bleed, and does not want to go through that again. Pt states she'd rather live with her anxiety than the side effects of this medication. Reports the heart doctor thought part of her elevated BP problem was her anxiety- which is why she was considering medication in the first place. Asking if she still needs to come to the f/u appt in one month, which was scheduled to f/u on the sertraline. Pt states she is not going to take the sertraline. Please advise pt. [facility] 04-28-2024 History of Present illness Narrative Patient presents with: Follow Up HPI: Patient presents today for office visit for 3 month follow up. HTN: Continues Losartan 100 mg daily Hydralazine 50 mg TID Amlodipine 10 mg daily recently added per Cardiology. Has been monitoring her BP more recently. Brought her home cuff for validation. Manual read 166/65 Machine 173/68 Systolic is about 7 points higher on machine. Her home bp's are usually in the 130's at home. Dystolic was pretty accurate. Denies chest pain. Some SOB with exertion. Denies palpitations and syncope. Denies headaches and dizziness. Some edema to ankles. Elevates them often. Sees Cardiology. Last seen in February. Hx of atrial fibrillation Continues Metoprolol 50 mg BID. Increased to BID recently. No longer on Cartia. Continued on Eliquis 5 mg BID. No bleeding or bruising concerns. Cardiology thinks her BP is anxiety related. On xanax in past. Has not taken in over a year. MEDICATIONS: Current Outpatient Medications Medication Sig amLODIPine (NORVASC) 10 mg tablet Take 1 tablet by mouth every afternoon. hydrALAZINE (APRESOLINE) 50 mg tablet Take 1 tablet by mouth three times a day. For blood pressure losartan (COZAAR) 100 mg tablet Take 1 tablet by mouth once daily. metoprolol succinate ER (TOPROL XL) 25 mg 24 hr tablet Take 50 mg by mouth once daily. apixaban (ELIQUIS) 5 mg tab(s) Take 5 mg by mouth two times a day. ALPRAZolam (XANAX) 0.5 mg tablet Taking as needed (Patient not taking: Reported on 01/24/2024) CARTIA XT 180 mg 24 hr capsule Take 180 mg by mouth once daily. (Patient not taking: Reported on 04/28/2024) No current facility-administered medications for this visit. ALLERGIES: ALLERGIES Allergen Reactions Caffeine Intolerance PAST MEDICAL HISTORY Diagnosis Date Anxiety Atrial fibrillation (HCC) HTN (hypertension) Seborrheic keratosis right ear PAST SURGICAL HISTORY Procedure Laterality Date HYSTERECTOMY 1970's bleediing issues. no malignancy LAPAROSCOPIC CHOLECYSTECTOMY 01/11/1995 REMV CATARACT EXTRACAP,INSERT LENS Right 12/03/2023 REMV CATARACT EXTRACAP,INSERT LENS Left 12/12/2023 FAMILY HISTORY Problem Relation Age of Onset Hypertension Mother other (chf) Mother Stroke Father Ischemic Heart Disease Sister Social History Tobacco Use Smoking status: Former Smokeless tobacco: Never Vaping Use Vaping status: Never Used Substance Use Topics Alcohol use: No Drug use: No Reviewed current medications, allergies, past medical history, surgical history, family history and social history today. REVIEW OF SYSTEMS All other reviewed and negative other than HPI. HEALTH MAINTENANCE: Reviewed health maintenance issues today and recommended the following in detail. Depression Screening Never done RSV Vaccine(1 - 1-dose 75+ series) Never done Influenza Vaccine(1) due on 12/22/2023 Covid-19 Vaccine(2023- season) due on 12/22/2023 Advance Directive Discussion- daughter is her surrogate. VITALS: BP 166/60 Pulse 65 Ht 167.6 cm (5' 6") Wt 89.8 kg (198 lb) SpO2 99% BMI 31.96 kg/m Last 4 Encounter Wt Readings: Date: Wt: 01/24/2024 0 kg () 12/27/2023 96.2 kg (212 lb) 10/18/2022 93.9 kg (207 lb) 04/18/2022 95.5 kg (210 lb 9.6 oz) PHYSICAL EXAMINATION: General appearance: Well appearing, alert, in no acute distress, well-hydrated, well nourished. Skin: Skin color, texture, turgor normal, no suspicious rashes or lesions Head: Normocephalic, no masses, lesions, tenderness or abnormalities Lungs: Lungs clear to auscultation. No wheezing, rhonchi, rales Heart: RRR without murmur, gallop, or rubs. No ectopy Abdomen: Normal abdominal exam, Abdomen soft, non-tender. Bowel sounds normal. No masses, organomegaly Extremities: No deformities, edema, skin discoloration, clubbing or cyanosis. Good capillary refill. Musculoskeletal: No joint swelling, deformity, or tenderness ASSESSMENT/PLAN: 1. Paroxysmal atrial fibrillation (HCC) - ICD9: 427.31, ICD10: I48.0 (primary diagnosis) - heart rate is good. Continue meds. 2. Primary hypertension - ICD9: 401.9, ICD10: I10 - Home blood pressure readings controlled - Continue current medications 3. Stage 3a chronic kidney disease (HCC) - ICD9: 585.3, ICD10: N18.31 - stable. 4. Chronic anticoagulation - ICD9: V58.61, ICD10: Z79.01 - continue meds. 5. Anxiety - ICD9: 300.00, ICD10: F41.9 - start zoloft. Discussed risks and benefits of new medication with the patient. Advised them to call if any side effects or questions. - follow up in one month - SERTRALINE 50 MG TABLET 6. Screening for depression - ICD9: V79.0, ICD10: Z13.31 - DEPRESSION SCREENING Rosalino Carmona MD documented in this encounter [facility] 04-28-2024 Note HNO ID: [id number] Author: ROSALINO CARMONA MD Service: ? Author Type: Physician Type: Progress Notes Filed: 04/28/2024 15:01 Note Text: Patient presents with: Follow Up HPI: Patient presents today for office visit for 3 month follow up. HTN: Continues Losartan 100 mg daily Hydralazine 50 mg TID Amlodipine 10 mg daily recently added per Cardiology. Has been monitoring her BP more recently. Brought her home cuff for validation. Manual read 166/65 Machine 173/68 Systolic is about 7 points higher on machine. Her home bp's are usually in the 130's at home. Dystolic was pretty accurate. Denies chest pain. Some SOB with exertion. Denies palpitations and syncope. Denies headaches and dizziness. Some edema to ankles. Elevates them often. Sees Cardiology. Last seen in February. Hx of atrial fibrillation Continues Metoprolol 50 mg BID. Increased to BID recently. No longer on Cartia. Continued on Eliquis 5 mg BID. No bleeding or bruising concerns. Cardiology thinks her BP is anxiety related. On xanax in past. Has not taken in over a year. MEDICATIONS: Current Outpatient Medications Medication Sig amLODIPine (NORVASC) 10 mg tablet Take 1 tablet by mouth every afternoon. hydrALAZINE (APRESOLINE) 50 mg tablet Take 1 tablet by mouth three times a day. For blood pressure losartan (COZAAR) 100 mg tablet Take 1 tablet by mouth once daily. metoprolol succinate ER (TOPROL XL) 25 mg 24 hr tablet Take 50 mg by mouth once daily. apixaban (ELIQUIS) 5 mg tab(s) Take 5 mg by mouth two times a day. ALPRAZolam (XANAX) 0.5 mg tablet Taking as needed (Patient not taking: Reported on 01/24/2024) CARTIA XT 180 mg 24 hr capsule Take 180 mg by mouth once daily. (Patient not taking: Reported on 04/28/2024) No current facility-administered medications for this visit. ALLERGIES: ALLERGIES Allergen Reactions Caffeine Intolerance PAST MEDICAL HISTORY Diagnosis Date Anxiety Atrial fibrillation (HCC) HTN (hypertension) Seborrheic keratosis right ear PAST SURGICAL HISTORY Procedure Laterality Date HYSTERECTOMY bleediing issues. no malignancy LAPAROSCOPIC CHOLECYSTECTOMY 01/11/1995 REMV CATARACT EXTRACAP,INSERT LENS Right 12/03/2023 REMV CATARACT EXTRACAP,INSERT LENS Left 12/12/2023 FAMILY HISTORY Problem Relation Age of Onset Hypertension Mother other (chf) Mother Stroke Father Ischemic Heart Disease Sister Social History Tobacco Use Smoking status: Former Smokeless tobacco: Never Vaping Use Vaping status: Never Used Substance Use Topics Alcohol use: No Drug use: No Reviewed current medications, allergies, past medical history, surgical history, family history and social history today. REVIEW OF SYSTEMS All other reviewed and negative other than HPI. HEALTH MAINTENANCE: Reviewed health maintenance issues today and recommended the following in detail. Depression Screening Never done RSV Vaccine(1 - 1-dose 75+ series) Never done Influenza Vaccine(1) due on 12/22/2023 Covid-19 Vaccine(2023- season) due on 12/22/2023 Advance Directive Discussion- daughter is her surrogate. VITALS: BP 166/60 Pulse 65 Ht 167.6 cm (5' 6") Wt 89.8 kg (198 lb) SpO2 99% BMI 31.96 kg/m? Last 4 Encounter Wt Readings: Date: Wt: 01/24/2024 0 kg () 12/27/2023 96.2 kg (212 lb) 10/18/2022 93.9 kg (207 lb) 04/18/2022 95.5 kg (210 lb 9.6 oz) PHYSICAL EXAMINATION: General appearance: Well appearing, alert, in no acute distress, well-hydrated, well nourished. Skin: Skin color, texture, turgor normal, no suspicious rashes or lesions Head: Normocephalic, no masses, lesions, tenderness or abnormalities Lungs: Lungs clear to auscultation. No wheezing, rhonchi, rales Heart: RRR without murmur, gallop, or rubs. No ectopy Abdomen: Normal abdominal exam, Abdomen soft, non-tender. Bowel sounds normal. No masses, organomegaly Extremities: No deformities, edema, skin discoloration, clubbing or cyanosis. Good capillary refill. Musculoskeletal: No joint swelling, deformity, or tenderness ASSESSMENT/PLAN: 1. Paroxysmal atrial fibrillation (HCC) - ICD9: 427.31, ICD10: I48.0 (primary diagnosis) - heart rate is good. Continue meds. 2. Primary hypertension - ICD9: 401.9, ICD10: I10 - Home blood pressure readings controlled - Continue current medications 3. Stage 3a chronic kidney disease (HCC) - ICD9: 585.3, ICD10: N18.31 - stable. 4. Chronic anticoagulation - ICD9: V58.61, ICD10: Z79.01 - continue meds. 5. Anxiety - ICD9: 300.00, ICD10: F41.9 - start zoloft. Discussed risks and benefits of new medication with the patient. Advised them to call if any side effects or questions. - follow up in one month - SERTRALINE 50 MG TABLET 6. Screening for depression - ICD9: V79.0, ICD10: Z13.31 - DEPRESSION SCREENING Rosalino Carmona MD [facility] 04-10-2024 Telephone encounter Note mammogram [facility] 04-10-2024 Miscellaneous Notes mammogram See mammo results: Scan on 04/10/2024 9:25 AM by Provider, ELY Armendariz: Mammography documented in this encounter [facility] 04-10-2024 Telephone encounter Note See mammo results: Scan on 04/10/2024 9:25 AM by ProviderKala PA-C: Mammography [facility] 03-26-2024 Telephone encounter Note Order faxed to as requested. Sent via [employer]. Patient notified. [facility] 03-26-2024 Miscellaneous Notes Order faxed to as requested. Sent via [employer]. Patient notified. Patient calling she received her reminder to get mamm order. She does at [facility]. Last year was done on 04/09/2023. She wants a 3 D mamm faxed to [phone]. Pending order. Please advise documented in this encounter [facility] 03-25-2024 Telephone encounter Note Patient calling she received her reminder to get mamm order. She does at [facility] in [place]. Last year was done on 04/09/2023. She wants a 3 D mamm faxed to [phone]. Pending order. Please advise [facility] 03-02-2024 Note HNO ID: [id number] Author: BREANNA CANSECO PA-C Service: ? Author Type: Physician Post Framer Type: Progress Notes Filed: 03/02/2024 09:26 Note Text: Large Joint Arthro/Inj: bilateral knee joints Informed Consent Consent Obtained: Verbal [place] Protocol A moment to CARE was completed. SIGN IN Sign in communication not applicable due to emergent procedure. Personnel directly involved with the procedure wore the appropriate PPE. Special Equipment: N/A Patient/Surrogate Stated/Verified: Patient name, Date of , Relevant allergies and Intended procedure TIME OUT Intended patient and procedure match the source document(s). Consent documented and matches the intended procedure. Relevant labs, photos, and/or imaging studies have been reviewed. Correct side/site marked and visible. Medications required for procedure verified. No fire risk assessment and interventions applicable. No implant(s) inserted. 03/02/2024 9:26 AM The procedure site was prepped in the usual sterile fashion. Site: bilateral knee joints Medications (Right): 6 mg betamethasone acetate-betamethasone sodium phosphate 6 mg/mL Medications (Left): 6 mg betamethasone acetate-betamethasone sodium phosphate 6 mg/mL Anesthetics (Right): 5 mL lidocaine (PF) 10 mg/mL (1 %) Anesthetics (Left): 5 mL lidocaine (PF) 10 mg/mL (1 %) Outcome: Tolerated well, no immediate complications Post-injection instructions were reviewed with the patient and the patient voiced understanding of these instructions. SIGN OUT No specimen collected. No instruments, equipment or retained foreign bodies applicable. Post-procedure follow-up management communicated and Plan of Care Visit completed when applicable [facility] 03-02-2024 History of Present illness Narrative Associated Order(s): Large Joint Arthro/Inj: bilateral knee joints Post-Procedure Diagnose(s): Primary osteoarthritis of both knees Large Joint Arthro/Inj: bilateral knee joints Informed Consent Consent Obtained: Verbal [place] Protocol A moment to CARE was completed. SIGN IN Sign in communication not applicable due to emergent procedure. Personnel directly involved with the procedure wore the appropriate PPE. Special Equipment: N/A Patient/Surrogate Stated/Verified: Patient name, Date of , Relevant allergies and Intended procedure TIME OUT Intended patient and procedure match the source document(s). Consent documented and matches the intended procedure. Relevant labs, photos, and/or imaging studies have been reviewed. Correct side/site marked and visible. Medications required for procedure verified. No fire risk assessment and interventions applicable. No implant(s) inserted. 03/02/2024 9:26 AM The procedure site was prepped in the usual sterile fashion. Site: bilateral knee joints Medications (Right): 6 mg betamethasone acetate-betamethasone sodium phosphate 6 mg/mL Medications (Left): 6 mg betamethasone acetate-betamethasone sodium phosphate 6 mg/mL Anesthetics (Right): 5 mL lidocaine (PF) 10 mg/mL (1 %) Anesthetics (Left): 5 mL lidocaine (PF) 10 mg/mL (1 %) Outcome: Tolerated well, no immediate complications Post-injection instructions were reviewed with the patient and the patient voiced understanding of these instructions. SIGN OUT No specimen collected. No instruments, equipment or retained foreign bodies applicable. Post-procedure follow-up management communicated and Plan of Care Visit completed when applicable AMB ROOMING INTAKE FLOWSHEET DATA Pain Pain Level: 2 Pain Location: Knee-Right Description: Sore Duration Amount of Time: 1 Duration Units: Days Frequency: Continuous documented in this encounter [facility] 03-02-2024 Note HNO ID: [id number] Author: BERNADINE HOOK LPN Service: ? Author Type: LICENSED NURSE Type: Progress Notes Filed: 03/02/2024 09:26 Note Text: AMB ROOMING INTAKE FLOWSHEET DATA Pain Pain Level: 2 Pain Location: Knee-Right Description: Sore Duration Amount of Time: 1 Duration Units: Days Frequency: Continuous [facility] 01-27-2024 Telephone encounter Note Letter mailed to pt home of results. Maria Dolores Lerma MA [facility] 01-27-2024 Miscellaneous Notes Letter mailed to pt home of results. Maria Dolores Lerma MA ----- Message from Orquidea Robertson sent at 01/27/2024 8:52 AM EDT ----- Labs were okay except that her white blood count was high. We are treating her for bronchitis. This was an expected finding. All other labs were okay. documented in this encounter [facility] 01-27-2024 Telephone encounter Note ----- Message from Orquidea Robertson sent at 01/27/2024 8:52 AM EDT ----- Labs were okay except that her white blood count was high. We are treating her for bronchitis. This was an expected finding. All other labs were okay. [facility] 01-24-2024 Instructions Orquidea Robertson APRN.ALEXX - 01/24/2024 8:25 AM EDT 1) Check labs 2) Doxycycline 100 mg 2 x day 3) Follow up in 3 months documented in this encounter [facility] 01-24-2024 History of Present illness Narrative This is a 83 year old female who presents today with: Patient presents with: Hypertension: 4 week medication follow up HISTORY OF PRESENT ILLNESS: Tricia Granados is a 83 year old female. Patient presents with: Hypertension: 4 week medication follow up Has been really sick for the past 3 weeks. Sinus drainage. Very tired. No chest congestion. Chills. Here for BP check. HTN: Patient is compliant with meds No Monitors bp at home: too sick. Denies side effects: No. Chest pain: No. Dyspnea: Yes for first week of flu. Edema: No. Palpitations: No. Syncope: No. Headache: No. Dizziness: No. PAST MEDICAL HISTORY: PAST MEDICAL HISTORY Diagnosis Date Anxiety Atrial fibrillation (HCC) HTN (hypertension) Seborrheic keratosis right ear PAST SURGICAL HISTORY Procedure Laterality Date HYSTERECTOMY 1970's bleediing issues. no malignancy LAPAROSCOPIC CHOLECYSTECTOMY 01/11/1995 REMV CATARACT EXTRACAP,INSERT LENS Right 12/03/2023 REMV CATARACT EXTRACAP,INSERT LENS Left 12/12/2023 ALLERGIES Caffeine MEDICATIONS Current Outpatient Medications Medication Sig hydrALAZINE (APRESOLINE) 50 mg tablet Take 1 tablet by mouth three times a day. For blood pressure losartan (COZAAR) 100 mg tablet Take 1 tablet by mouth once daily. metoprolol succinate ER (TOPROL XL) 25 mg 24 hr tablet Take 50 mg by mouth once daily. CARTIA XT 180 mg 24 hr capsule Take 180 mg by mouth once daily. apixaban (ELIQUIS) 5 mg tab(s) Take 5 mg by mouth two times a day. hydrOXYzine HCl (ATARAX) 25 mg tablet Take 1 tablet by mouth three times a day as needed for itching/rash. For anxiety (Patient not taking: Reported on 01/24/2024) ALPRAZolam (XANAX) 0.5 mg tablet Taking as needed (Patient not taking: Reported on 01/24/2024) No current facility-administered medications for this visit. FAMILY HISTORY Problem Relation Age of Onset Hypertension Mother other (chf) Mother Stroke Father Ischemic Heart Disease Sister Social History Tobacco Use Smoking status: Former Smokeless tobacco: Never Vaping Use Vaping status: Never Used Substance Use Topics Alcohol use: No Drug use: No EXAM: Pulse 74 Resp 16 SpO2 97% PHYSICAL EXAM: Physical Exam Vitals reviewed. Constitutional: Appearance: Normal appearance. HENT: Head: Normocephalic. Right Ear: Tympanic membrane, ear canal and external ear normal. There is no impacted cerumen. Left Ear: Tympanic membrane, ear canal and external ear normal. There is no impacted cerumen. Nose: Congestion and rhinorrhea present. Mouth/Throat: Mouth: Mucous membranes are moist. Pharynx: Oropharyngeal exudate and posterior oropharyngeal erythema present. Cardiovascular: Rate and Rhythm: Normal rate. Rhythm irregular. Pulses: Normal pulses. Heart sounds: Normal heart sounds. Comments: Distant heart sounds- regular irreg, diminshed at apex Pulmonary: Effort: Pulmonary effort is normal. No respiratory distress. Breath sounds: Wheezing present. No rhonchi. Musculoskeletal: General: Normal range of motion. Comments: Generalized weakness Skin: General: Skin is warm and dry. Neurological: Mental Status: She is alert. Psychiatric: Mood and Affect: Mood normal. Behavior: Behavior normal. LABS: check labs ASSESSMENT/PLAN: 1. Anxiety - ICD9: 300.00, ICD10: F41.9 (primary diagnosis) stable - HYDROXYZINE HCL 25 MG TABLET 2. Acute bronchitis, unspecified organism - ICD9: 466.0, ICD10: J20.9 improving - DOXYCYCLINE HYCLATE 100 MG TABLET - COMPLETE BLOOD COUNT AND DIFFERENTIAL 3. Primary hypertension - ICD9: 401.9, ICD10: I10 - Factors affecting control: suspected white coat hypertension - Recommend home blood pressure monitoring, to bring results to next visit - Encouraged sodium restriction, DASH or Mediterranean diet - Recommend regular aerobic exercise - COMPREHENSIVE METABOLIC PANEL - MAGNESIUM 4. Chronic fatigue - ICD9: 780.79, ICD10: R53.82 Check labs - COMPLETE BLOOD COUNT AND DIFFERENTIAL - COMPREHENSIVE METABOLIC PANEL - MAGNESIUM 5. Stage 3a chronic kidney disease (HCC) - ICD9: 585.3, ICD10: N18.31 - eGFR: 61 Due for labs - Counseled on avoiding NSAIDs, adequate hydration - COMPREHENSIVE METABOLIC PANEL - MAGNESIUM 6. Chronic anticoagulation - ICD9: V58.61, ICD10: Z79.01 Check labs - COMPLETE BLOOD COUNT AND DIFFERENTIAL - VITAMIN B12 - THYROID STIMULATING HORMONE - HEMOGLOBIN A1C 7. Screening for lipid disorders - ICD9: V77.91, ICD10: Z13.220 Check labs - LIPID PANEL, NONFASTING - HEMOGLOBIN A1C 8. Paroxysmal atrial fibrillation (HCC) - ICD9: 427.31, ICD10: I48.0 Check labs - THYROID STIMULATING HORMONE - HEMOGLOBIN A1C 9. 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 Patient's questions answered appropriately. Medications and potential side effects were discussed and patient voices understanding. Return to the office as scheduled or as needed for worsening/no improvement. Orquidea Robertson APRN.CNP documented in this encounter [facility] 01-14-2024 History of Present illness Narrative Transitional Care Management (TCM) Follow-Up Note PCP Update / Actionable Items Future Apts 01/23 Famp Wstr 03/02 ORTHO WSTR N/A - No specialty updates needed Patient Source: [id number] (OON) Discharge Outreach Summary: Patient states is feeling better, making progress, sleeping in bed, coming back slowly ENT everything was healed, started back on the Eliquis 01/23 with PCP, will check b/p, medications was changed in hospital Started meals on wheel Denies pain,sob, cough, wheezing, fever/chills, n/v Appetite good and hydrating Voiding and bm without difficulty, BM 01/07/24 Ambulating up ad levar Fatigue denies Denies questions, concerns regarding medications, self care , no issues, stabl Patient discharged from [facility] Discharge date: 12/23/23 Admitted for: Epistaxi Readmission Risk: n/a Value-Based Contract: ACO Contact: Contact made with patient: Yes Spoke to: Patient Validation: Validated the person spoken to is actively involved in the patient's care. The patient was identified by Name and Date of . I'd like to get an update on how you're doing since our last phone call. Is now a good time to talk? Yes Symptoms: Are you feeling about the same, better or worse since leaving the hospital? Better Weekly Outreach: 3rd Outreach (Reminder to complete appropriate education topics with the patient.) Medications: Do you have any questions about taking your medications, including which medications you should be on, or do you need refills on your medications? No Patient Questions / Concerns: Do you have any questions related to your discharge? No Appointment / TCM Follow-Up: Have you had a follow-up visit with your Primary Care Provider or Specialist since you were discharged? Yes Do you need any assistance with scheduling or changing your follow-up appointments? Patient declines appointment Education N/A Targets addressed / completed during outreach: Prevent readmission for 30 days Outreach Outcome: Continue TCM Outreach for remainder of 30 days Care Management partners utilized: N/A Cherelle Rush RN January 14, 2024 2:29 PM documented in this encounter [facility] 01-09-2024 Telephone encounter Note Patient notified of provider message and is agreeable to call Dr Lolita Marie MA January 09, 2024 2:57 PM [facility] 01-09-2024 Miscellaneous Notes Patient notified of provider message and is agreeable to call Dr Lolita Marie MA January 09, 2024 2:57 PM She follows with Dr. Dunlap. I would prefer that they weigh in on this. Patient calling a week ago Dr Aniya GUEVARA cauterized the bleeding her nose and she had follow up with him today. He said Ok but to check with PCP about restarting the Eliquis. She has been off of the Eliquis for 2 weeks now. Please advise documented in this encounter [facility] 01-09-2024 Telephone encounter Note She follows with Dr. Dunlap. I would prefer that they weigh in on this. [facility] 01-09-2024 Telephone encounter Note Patient calling a week ago Dr Aniya GUEVARA cauterized the bleeding her nose and she had follow up with him today. He said Ok but to check with PCP about restarting the Eliquis. She has been off of the Eliquis for 2 weeks now. Please advise [facility] 01-07-2024 History of Present illness Narrative Transitional Care Management (TCM) Follow-Up Note PCP Update / Actionable Items Day Future Apts 01/23 Famp Wstr 03/02 ORTHO WSTR N/A - No specialty updates needed Patient Source: [id number] (OON) Discharge Outreach Summary: Patient states is feeling better, have appt with ENT on , Opht yesterday, had cataracts is okay, will see ENT to go back on Eliquis Denies pain,sob, cough, wheezing, fever/chills, n/v Appetite good and hydrating Voiding and bm without difficulty, BM 01/07/24 Ambulating up ad levar, up with walker, have holler lift night Fatigue denies Denies questions, concerns regarding medications, self care , no issues, stabl Patient discharged from [facility] Discharge date: 12/23/23 Admitted for: Epistaxi Readmission Risk: n/a Value-Based Contract: ACO Contact: Contact made with patient: Yes Spoke to: Patient Validation: Validated the person spoken to is actively involved in the patient's care. The patient was identified by Name and Date of . I'd like to get an update on how you're doing since our last phone call. Is now a good time to talk? Yes Symptoms: Are you feeling about the same, better or worse since leaving the hospital? Better Weekly Outreach: 2nd Outreach Medications: Do you have any questions about taking your medications, including which medications you should be on, or do you need refills on your medications? No Patient Questions / Concerns: Do you have any questions related to your discharge? No Appointment / TCM Follow-Up: Have you had a follow-up visit with your Primary Care Provider or Specialist since you were discharged? Yes Do you need any assistance with scheduling or changing your follow-up appointments? Patient declines appointment SDOH: Has Food and Housing been addressed in Social Determinants in the past 3 months? Yes Education N/A Targets addressed / completed during outreach: Prevent readmission for 30 days Outreach Outcome: Continue TCM Outreach for remainder of 30 days Care Management partners utilized: N/A Cherelle Rush RN January 07, 2024 6:34 PM documented in this encounter [facility] 12-31-2023 History of Present illness Narrative Transitional Care Management (TCM) Follow-Up Note PCP Update / Actionable Items Future Apts 01/23 Famp Wstr 03/02 ORTHO WSTR N/A - No specialty updates needed Patient Source: [id number] (OON) Discharge Outreach Summary: Patient states is feeling better, have appt with ENT this week , had cataracts off last week Left nares packing removed , but is raw, will heel in time, blood clot every now and then, dr told pt that would happen Denies pain,sob, cough, wheezing, fever/chills, n/v Appetite good and hydrating Voiding and bm without difficulty, BM 12/24/23 Ambulating up ad levar, up with walker, slide out bed other day, have holler lift night Fatigue denies Denies questions, concerns regarding medications, self care , no issues, stabl Patient discharged from [facility] Discharge date: 12/23/23 Admitted for: Epistaxi Readmission Risk: n/a Value-Based Contract: ACO Contact: Contact made with patient: Yes Spoke to: Patient Validation: Validated the person spoken to is actively involved in the patient's care. The patient was identified by Name and Date of . I'd like to get an update on how you're doing since our last phone call. Is now a good time to talk? Yes Symptoms: Are you feeling about the same, better or worse since leaving the hospital? Better Weekly Outreach: 2nd Outreach Medications: Do you have any questions about taking your medications, including which medications you should be on, or do you need refills on your medications? No Patient Questions / Concerns: Do you have any questions related to your discharge? No Appointment / TCM Follow-Up: Have you had a follow-up visit with your Primary Care Provider or Specialist since you were discharged? Yes Do you need any assistance with scheduling or changing your follow-up appointments? Patient already has an appointment scheduled SDOH: Has Food and Housing been addressed in Social Determinants in the past 3 months? Yes Education N/A Targets addressed / completed during outreach: Prevent readmission for 30 days Outreach Outcome: Continue TCM Outreach for remainder of 30 days Care Management partners utilized: N/A Cherelle Rush RN December 31, 2023 3:39 PM documented in this encounter [facility] 12-30-2023 Telephone encounter Note Tricia Granados (Ledezma: [id number]) SAMANTHA Rx #: [id number] Need Help? Call us at Outcome Approved on December 26 by [employer] 2017 Approved. This drug has been approved under the Member's Medicare Part D benefit. Approved quantity: 60 units per 20 day(s). You may fill up to a 90 day supply except for those on Specialty Tier 5, which can be filled up to a 30 day supply. Please call the pharmacy to process the prescription claim. Authorization Expiration Date: 04/21/2099 Drug hydrOXYzine HCl 25MG tablets ePA cloud logo Form [employer] Electronic Prior Authorization Request Form (2016 NCPDP) Original Claim Info [id number] IF LEVEL OF CARE CHANGE CALL HELP DESK Pharmacy notified. [facility] 12-30-2023 Miscellaneous Notes Tricia Granados (Ledezma: [id number]) SAMANTHA Rx #: [id number] Need Help? Call us at Outcome Approved on December 26 by [employer] 2017 Approved. This drug has been approved under the [facility]'s Medicare Part D benefit. Approved quantity: 60 units per 20 day(s). You may fill up to a 90 day supply except for those on Specialty Tier 5, which can be filled up to a 30 day supply. Please call the pharmacy to process the prescription claim. Authorization Expiration Date: 04/21/2099 Drug hydrOXYzine HCl 25MG tablets ePA cloud logo Form [employer] Electronic Prior Authorization Request Form (2016 NCPDP) Original Claim Info [id number] IF LEVEL OF CARE CHANGE CALL HELP DESK Pharmacy notified. Prior Authorization has been completed online at [employer] for hydroxazine, will await response. LEDEZMA- BNCYDKFG Please keep encounter open until final decision has been received and documented from insurance company. Lynette Weinstein MA documented in this encounter [facility] 12-27-2023 Telephone encounter Note Prior Authorization has been completed online at [employer] for hydroxazine, will await response. LEDEZMA- BNCYDKFG Please keep encounter open until final decision has been received and documented from insurance company. Lynette Weinstein MA [facility] 12-27-2023 Instructions Orquidea Robertson APRN.CNP - 12/27/2023 10:14 AM EDT 1) Consider getting knee supports for knees 2) Consider diclofenac topical gel 2 x day to knees (OTC) 3) Do not start Eliquis until Dr. Elliott says ok 4) Increase hydralazine to 50 mg 3 x day 5) Hydroxyzine 25 mg up to 3 x day as need for anxiety documented in this encounter [facility] 12-27-2023 History of Present illness Narrative This is a 83 year old female who presents today with: Patient presents with: Hospital F/U: [facility] Follow up HISTORY OF PRESENT ILLNESS: Tricia Granados is a 83 year old female. Patient presents with: Hospital F/U: [facility] Follow up Admitted for severe nose bleeds & HTN No further nose bleeds. BP was very high. Using Afrin- seeping brown stuff. Had nose cauterized. Has follow up with Dr. Elliott, ENT Off Eliquis- cardiology said up to PCP to determine what to do. On hysralazine for blood pressure Knee pain bilaterally PAST MEDICAL HISTORY: PAST MEDICAL HISTORY No date: Anxiety No date: Atrial fibrillation (HCC) No date: HTN (hypertension) No date: Seborrheic keratosis Comment: right ear PAST SURGICAL HISTORY : HYSTERECTOMY Comment: bleediing issues. no malignancy 01/11/1995: LAPAROSCOPIC CHOLECYSTECTOMY 12/03/2023: REMV CATARACT EXTRACAP,INSERT LENS; Right 12/12/2023: REMV CATARACT EXTRACAP,INSERT LENS; Left ALLERGIES Caffeine MEDICATIONS Current Outpatient Medications Medication Sig hydrALAZINE (APRESOLINE) 25 mg tablet Take 25 mg by mouth three times a day. losartan (COZAAR) 100 mg tablet Take 1 tablet by mouth once daily. metoprolol succinate ER (TOPROL XL) 25 mg 24 hr tablet Take 50 mg by mouth once daily. ALPRAZolam (XANAX) 0.5 mg tablet Taking as needed CARTIA XT 180 mg 24 hr capsule benzonatate (TESSALON PERLES) 100 mg capsule Take 1 capsule by mouth three times daily as needed for cough. apixaban (ELIQUIS) 5 mg tab(s) Take 5 mg by mouth twice daily. (Patient not taking: Reported on 12/26/2023) No current facility-administered medications for this visit. FAMILY HISTORY Problem Relation Age of Onset Hypertension Mother other (chf) Mother Stroke Father Ischemic Heart Disease Sister Social History Tobacco Use Smoking status: Former Smokeless tobacco: Never Vaping Use Vaping status: Never Used Substance Use Topics Alcohol use: No Drug use: No REVIEW OF SYSTEMS GENERAL: No weight loss, no malaise, no fevers/chills HEENT: Negative for frequent or significant headaches, No changes in hearing or vision. Just had cataract surgery NECK: Negative for lumps, goiter, pain and significant neck swelling RESPIRATORY: Negative for cough except with drainage, hemoptysis, wheezing, dyspnea or shortness of breath CARDIOVASCULAR: Negative for chest pain, leg swelling, or palpitations GI: No nausea, vomiting, or diarrhea/constipation. No hematochezia/melena. No heartburn or reflux symptoms. : No history of dysuria, frequency or incontinence MUSCULOSKELETAL: Terrible knee pain- seeing ortho- getting cortisone injections MOOD: Negative for depression, + anxiety, no suicidal ideation. EXAM: BP 146/68 Pulse 65 Wt 96.2 kg (212 lb) SpO2 98% BMI 34.22 kg/m PHYSICAL EXAM: Physical Exam Vitals reviewed. Constitutional: Appearance: Normal appearance. HENT: Head: Normocephalic. Nose: Congestion present. No rhinorrhea. Mouth/Throat: Mouth: Mucous membranes are moist. Pharynx: Oropharynx is clear. No oropharyngeal exudate. Cardiovascular: Rate and Rhythm: Normal rate and regular rhythm. Pulses: Normal pulses. Heart sounds: Normal heart sounds. Pulmonary: Effort: Pulmonary effort is normal. Breath sounds: Normal breath sounds. Abdominal: General: Bowel sounds are normal. Palpations: Abdomen is soft. Musculoskeletal: Comments: Knee pain osbaldo. And instability Skin: General: Skin is warm and dry. Neurological: Mental Status: She is alert. Psychiatric: Comments: Long standing anxiety LABS: Hospital labs: White count 10.1, hemoglobin 11.3, hematocrit 34.4, platelet count 262 Sodium 137, potassium 3.2, BUN 9, creatinine 0.87, glucose 109 ASSESSMENT/PLAN: 1. Primary hypertension - ICD9: 401.9, ICD10: I10 (primary diagnosis) - Uncontrolled - Recommend home blood pressure monitoring, to bring results to next visit - Encouraged sodium restriction, DASH or Mediterranean diet - Recommend regular aerobic exercise - HYDRALAZINE 50 MG TABLET 2. Paroxysmal atrial fibrillation (HCC) - ICD9: 427.31, ICD10: I48.0 Holding Eliquis until cleared by ENT 3. Chronic anticoagulation - ICD9: V58.61, ICD10: Z79.01 Holding Eliquis until cleared by ENT 4. Anxiety - ICD9: 300.00, ICD10: F41.9 Has used Ativan in past, will switch to hydroxyzine prn - HYDROXYZINE HCL 25 MG TABLET 5. Stage 3a chronic kidney disease (HCC) - ICD9: 585.3, ICD10: N18.31 - eGFR: 61 Stable - Counseled on avoiding NSAIDs, adequate hydration 6. Pain in both knees, unspecified chronicity - ICD9: 719.46, ICD10: M25.561, M25.562 - Consider diclofenac gel topically to knees - Also consider knee supports 7. Epistaxis - ICD9: 784.7, ICD10: R04.0 Seeing ENT Discussed treatment plan and patient voices understanding. Patient's questions answered appropriately. Medications and potential side effects were discussed and patient voices understanding. Return to the office as scheduled or as needed for worsening/no improvement. Orquidea Robertson APRN.CNP documented in this encounter [facility] 12-26-2023 History of Present illness Narrative Breanna Canseco PA-C Department of Orthopaedics Orthopaedics [address] [place] [id number] Dept: [phone] December 26, 2023 CHIEF COMPLAINT: Knee Pain and Established Patient of the Right Knee and Knee Pain and Established Patient of the Left Knee Ms. Tricia Granados is a 83 year old female who presents with pain in her right knee after a fall that occurred almost 3 weeks ago. Patient was walking in her own home in stocking feet when she reports that her knees came together and her lower legs split apart. She reports pain in both of the knees. Ironically now she started having epistaxis about the same time and was hospitalized for a few days. Left knee is feeling much better but she continues to have medial right knee pain, pain 10/10. She gets corticosteroid injections on a regular basis, last injection was 1 month ago. She is unable to take oral NSAIDs as she is anticoagulated. She is using a platform walker which she reports alleviates most of her knee pain. She has been intermittently using ice and heat on the knee as well. ASSESSMENT: M17.0 Primary osteoarthritis of both knees (primary encounter diagnosis) M25.561, M25.562, G89.29 Chronic pain of both knees W19.XXXA Fall, initial encounter PLAN: Repeat x-rays show never evidence of fracture. Exam is rather benign. Will treat this like a knee sprain. Advised her to continue with motion as she is able to do so and continue with ice and topicals. I will see her back in 2 weeks for repeat corticosteroid injections. We discussed maybe trying some viscosupplementation as well. I did offer to get her fitted with a knee brace, she declines at this time and reports that the platform walker is very helpful. Ms. Tricia Granados was advised as to contrast therapies and/or to take analgesics/anti-inflammatories as needed and all contraindications were reviewed. OBJECTIVE: Ms. Tricia Granados is a pleasant 83 year old in no apparent distress. Gen:There were no vitals taken for this visit. nl development, obese, no deformities ENT: Normocephalic, normal hearing, moist mucosa CV: Pulses:DP/PT= 2+ and symmetric, capillary refill < 2 secs, no peripheral edema/varicosities Skin: no rash, bruising or lesions. Good turgor. Psych: cooperative and appropriate, alert and oriented x 3, good mood and affect. Musculoskeletal: KNEE EXAM: Left: Alignment: Valgus deformity, Partially Correctable Range of motion is lacking a few degrees secondary to tight hamstrings degrees in extension and 100 degrees of flexion. Extension La degrees Pain with ROM: No Effusion: Slight Tender to the palpation of Medial femoral condyle and Medial joint line Pain with patellar compression: Yes Stability: Anterior/Posterior stable and Varus/Valgus stable Hip Exam: flexion to 100+ degrees, full extension, internal/external rotation adequate, and no pain with log roll Neurovascular Status: Sensation Intact, Moves foot and ankle up & down, and 2+ dorsalis pedis Right: Alignment: Valgus deformity, Partially Correctable Range of motion is 5 degrees in extension and 90 degrees of flexion. Extension Lag: < 10 degrees Pain with ROM: Yes Effusion: Slight Tender to the palpation of Medial femoral condyle and Medial joint line Pain with patellar compression: Yes Stability: Anterior/Posterior stable and Varus/Valgus stable Hip Exam: flexion to 100+ degrees, full extension, internal/external rotation adequate, and no pain with log roll Neurovascular Status: Sensation Intact, Moves foot and ankle up & down, and 2+ dorsalis pedis Imaging: * * *Final Report* * * DATE OF EXAM: Dec 26 2023 8:15AM NINO 5618 - XR KNEE 4V AP/PA/LAT/MERCH OSBALDO / PROCEDURE REASON: multiple diagnoses * * * * Physician Interpretation * * * * EXAM: XR KNEE 4V AP/PA/LAT/MERCH OSBALDO PATIENT HISTORY: Acute pain of both knees Acute pain of both knees TECHNIQUE: Standing AP, PA, lateral, and merchant view radiograph of the bilateral knees COMPARISON: Radiograph 11/25/2023 FINDINGS: RIGHT No fracture or dislocation. Mild medial compartment predominant osteoarthrosis. Small suprapatellar joint effusion. Enthesophyte and superior pole of patella. No radiopaque foreign body. LEFT No acute fracture or dislocation. Joint space narrowing of the medial compartment. No joint effusion. Small enthesophyte superior pole patella. No radiopaque foreign body. IMPRESSION IMPRESSION: No acute fracture or dislocation of the knees. Mild degenerative change, as described. Refrigerator Repairman: SKYLER Transcribe Date/Time: Dec 26 2023 1:07P Dictated by : VAMSI NGUYEN MD This examination was interpreted and the report reviewed and electronically signed by: VAMSI NGUYEN MD on Dec 26 2023 1:17PM EST Supporting Subjective Information Below: Past Surgical History: PAST SURGICAL HISTORY : HYSTERECTOMY Comment: bleediing issues. no malignancy 01/11/1995: LAPAROSCOPIC CHOLECYSTECTOMY Medications: Current Outpatient Medications Medication Sig hydrALAZINE (APRESOLINE) 25 mg tablet Take 25 mg by mouth three times a day. losartan (COZAAR) 100 mg tablet Take 1 tablet by mouth once daily. metoprolol succinate ER (TOPROL XL) 25 mg 24 hr tablet Take 50 mg by mouth once daily. ALPRAZolam (XANAX) 0.5 mg tablet Taking as needed CARTIA XT 180 mg 24 hr capsule benzonatate (TESSALON PERLES) 100 mg capsule Take 1 capsule by mouth three times daily as needed for cough. (Patient not taking: Reported on 11/25/2023) apixaban (ELIQUIS) 5 mg tab(s) Take 5 mg by mouth twice daily. (Patient not taking: Reported on 12/26/2023) No current facility-administered medications for this visit. Allergies: Caffeine ROS: General (negative for fatigue, malaise, weight loss/gain) HEENT (negative for headache, earache, recent vision changes, sinus pain, sore throat) Respiratory (no recent shortness of breath, hemoptysis) CV (negative for chest tightness, palpitations) Musculoskeletal (see HPI) Psych (no depression, anxiety) This note was partially generated using [employer] voice recognition system, and there may be some incorrect words, spellings, and punctuation that were not noted in checking the note before saving. Breanna Canseco PA-C documented in this encounter [facility] 12-25-2023 Telephone encounter Note Spoke with patient - she will see Breanna tomorrow at 8:30 and will get an xray prior just to ensure nothing in broken. Pt verbalized understanding. [facility] 12-25-2023 Miscellaneous Notes Spoke with patient - she will see Breanna tomorrow at 8:30 and will get an xray prior just to ensure nothing in broken. Pt verbalized understanding. Patient calling and states over the weekend she slipped at home and landed on her knees and she has been unable to bear weight on her right knee. She was just discharged from [facility] for epistaxis and she has been hesitant to take any NSAIDs because of the bleeding. She had received steroid injections on 11/24 and had improvement in her pain, but it has returned since the incident this weekend. She is wondering if she could be seen next week or if adding viscosupplementation is needed or if an XR is indicated? Please advise. Alia Rojas LPN documented in this encounter [facility] 12-25-2023 Telephone encounter Note Patient calling and states over the weekend she slipped at home and landed on her knees and she has been unable to bear weight on her right knee. She was just discharged from [facility] for epistaxis and she has been hesitant to take any NSAIDs because of the bleeding. She had received steroid injections on 11/24 and had improvement in her pain, but it has returned since the incident this weekend. She is wondering if she could be seen next week or if adding viscosupplementation is needed or if an XR is indicated? Please advise. Alia Rojas LPN [facility] 12-24-2023 History of Present illness Narrative Requesting refill on xanax which she has not gotten in the records since dating back over 10 years. Is a controlled substance we avoid prescribing it at all possible. We could write something like vistaril but it can cause sedation. Check if she would like it. Transition Care Management (TCM) Initial Outreach PCP Update / Actionable Items Eligible for tcm through 01/06/24 Future Apts 12/26 FAMP WSTR 03/02 ORTHO WSTR HRTIC TCM Home Visit Referral Source of Stratification: TCM HUB Hospital Admission Status: Discharged Readmission Risk Score: n/a Patient's zip code: [address] Is zip code within program service area: No Patient meets program referral criteria: No Patient does not qualify for High Risk TCM Home Visit program due to: Readmission Risk Score does not meet criteria Disposition: Patient does not qualify for HRTIC, will provide TCM outreach follow-up for 30-days Patient Source: [id number] (OON) Discharge Outreach Summary: Patient states is feeling same Patient states that she has a lot of anxiety was on Xanax wants a refill will route to PCP, send to [facility] [address] Left nares packing, oozing out the side will see ENT Denies pain,sob, cough, wheezing, fever/chills, n/v Appetite bone broth jello applesauce and hydrating Voiding and bm without difficulty, BM 12/24/23 Ambulating up ad levar, fell the other day, have bone on bone, left knee went out, have a walker Fatigue denies Denies questions, concerns regarding medications, self care , no issues, stable Patient discharged from [facility] Discharge date: 12/23/23 Admitted for: Epistaxi Readmission Risk: n/a Value-Based Contract: ACO Contact: Contact made with patient: Yes Hi, my name is Cherelle Rush RN and I am calling from the [facility] on behalf of your Primary Care Provider, Rosalino Carmona MD. I understand you were recently in the hospital, so I am calling to check in with you to ensure you are feeling well now that you are home. May I ask you a few questions related to your hospital stay and well-being? Yes Spoke to: Patient Validation: Validated the person spoken to is actively involved in the patient's care. The patient was identified by Name and Date of . Symptoms: Are you feeling about the same, better or worse since leaving the hospital? Same Medications: Do you have any questions about taking your medications, including which medications you should be on, or do you need refills on your medications? Yes The patient needs refills- A separate telephone encounter was placed using the dot phrase .RXREFILL. Encounter routed to appropriate provider for approval. Medication Review: Declined at this time per patient preference Discharge Instructions: Your Discharge Instructions / After Visit Summary (AVS) are important in guiding you through the recovery process. Do you have any questions related to your discharge instructions? No Home Care: Were you discharged with home care? No Equipment: Do you have all the necessary equipment and supplies needed at your home? Yes The patient verbalizes understanding the use of the equipment and supplies Social: We would like to make sure you have what you need so that your basics needs are met - including your personal safety, food, housing and medications. Would you like to speak with a social work care team coordinator scheduler to help give you support for any of these needs? No It can be normal to feel anxious or down during a time like this. Would you like to talk to a mental health professional about how you have been feeling? No Action Taken: No needs verbalized. No action required. Follow-Up Appointment: [Appointment / TCM Follow-up within 14 days] I would like to help you schedule a hospital follow-up virtual or telephone visit with your PCP. This is a great way for you to connect with your provider to ensure you have safely transitioned home. If you are agreeable, I will send your request to a master scheduler who will contact and assist you with that appointment. This will give you an opportunity to ask any questions or address any concerns you may have with your PCP. Inform the patient that if they have any questions or concerns prior to that appointment, to call their PCP's office right away. Appointment Action: No action required; patient already has appointment scheduled. Education N/A Targets addressed / completed during outreach: Contact patient within two (2) business days Outreach Outcome: Enrolled in TCM Care Management partners utilized: N/A Cherelle Rush RN December 24, 2023 1:31 PM documented in this encounter [facility] 12-20-2023 Telephone encounter Note Rescheduled. [facility] 12-20-2023 Miscellaneous Notes Rescheduled. She should follow up with one of us before the five days is up. Patient calls and states that she was seen in [facility] ER for a nosebleed this morning. Patient states that [facility] ER had called Dr. Mcnulty's office and the doctor environmental protection economist had told patient to hold the Eliquis x [address] Carmona advise on what to do with Eliquis after 5 days. Patient calling and asking for Dr. Carmona's advise on this. Patient is scheduled for ER follow up with Dr. Carmona on Tuesday 12/26. Shanna Parkinson RN documented in this encounter [facility] 12-20-2023 Telephone encounter Note She should follow up with one of us before the five days is up. [facility] 12-20-2023 Telephone encounter Note Patient calls and states that she was seen in [facility] ER for a nosebleed this morning. Patient states that [facility] ER had called Dr. Mcnulty's office and the doctor environmental protection economist had told patient to hold the Eliquis x [address] Carmona advise on what to do with Eliquis after 5 days. Patient calling and asking for Dr. Carmona's advise on this. Patient is scheduled for ER follow up with Dr. Carmona on Tuesday 12/26. Shanna Parkinson RN [facility] 11-25-2023 History of Present illness Narrative Associated Order(s): Large Joint Arthro/Inj: bilateral knee joints Post-Procedure Diagnose(s): Primary osteoarthritis of both knees; Chronic pain of both knees Breanna Canseco PA-C Department of Orthopaedics Orthopaedics [address] [facility] [address] Dept: [phone] Dept November 25, 2023 CHIEF COMPLAINT: Follow Up and Knee Pain of the Left Knee, Follow Up and Knee Pain of the Right Knee, and 14 weeks post visit OA Bilateral knees with injections given (Wants injection). ASSESSMENT: M17.0 Primary osteoarthritis of both knees (primary encounter diagnosis) M25.561, M25.562, G89.29 Chronic pain of both knees SUMMARY/PLAN: Patient presents for repeat bilateral knee corticosteroid injections, last set of injections were only helpful for a few days, previously she was getting several months of relief. We discussed trying cortisone 1 more time. We certainly discussed having her follow-up and doing some viscosupplementation if she does not get any lasting improvement with this repeat set of cortisone injections. Will also get some updated knee x-rays just to see if her osteoarthritis is worsened. Large Joint Arthro/Inj: bilateral knee joints Informed Consent Consent Obtained: Verbal [place] Protocol A moment to CARE was completed. SIGN IN Sign in communication not applicable due to emergent procedure. Personnel directly involved with the procedure wore the appropriate PPE. Special Equipment: N/A Patient/Surrogate Stated/Verified: Patient name, Date of , Relevant allergies and Intended procedure TIME OUT Intended patient and procedure match the source document(s). Consent documented and matches the intended procedure. Relevant labs, photos, and/or imaging studies have been reviewed. Correct side/site marked and visible. Medications required for procedure verified. No fire risk assessment and interventions applicable. No implant(s) inserted. 11/25/2023 8:39 AM The procedure site was prepped in the usual sterile fashion. Site: bilateral knee joints Medications (Right): 6 mg betamethasone acetate-betamethasone sodium phosphate 6 mg/mL Medications (Left): 6 mg betamethasone acetate-betamethasone sodium phosphate 6 mg/mL Anesthetics (Right): 5 mL lidocaine (PF) 10 mg/mL (1 %) Anesthetics (Left): 5 mL lidocaine (PF) 10 mg/mL (1 %) Outcome: Tolerated well, no immediate complications Post-injection instructions were reviewed with the patient and the patient voiced understanding of these instructions. SIGN OUT No instruments, equipment or retained foreign bodies applicable. Ms. Tricia Granados was advised as to contrast therapies and/or to take analgesics/anti-inflammatories as needed and all contraindications were reviewed. Supporting Information Below: Medications: Current Outpatient Medications Medication Sig losartan (COZAAR) 100 mg tablet Take 1 tablet by mouth once daily. metoprolol succinate ER (TOPROL XL) 25 mg 24 hr tablet Take 50 mg by mouth once daily. ALPRAZolam (XANAX) 0.5 mg tablet Taking as needed CARTIA XT 180 mg 24 hr capsule apixaban (ELIQUIS) 5 mg tab(s) Take 5 mg by mouth twice daily. benzonatate (TESSALON PERLES) 100 mg capsule Take 1 capsule by mouth three times daily as needed for cough. (Patient not taking: Reported on 11/25/2023) No current facility-administered medications for this visit. Allergies: Caffeine This note was partially generated using [employer] voice recognition system, and there may be some incorrect words, spellings, and punctuation that were not noted in checking the note before saving. Breanna Canseco PA-C Patient presents with: Left Knee - Follow Up, Knee Pain Right Knee - Follow Up, Knee Pain 14 weeks post visit OA Bilateral knees with injections given: Wants injection AMB ROOMING INTAKE FLOWSHEET DATA Pain Pain Location: (Bilateral knee) Description: Sharp Duration Amount of Time: (ongoing) Frequency: Intermittent Intervention/Comfort measure: (none) Patient states cortisone injections did not help this time. Her pain is worse when sweeping the floor and going up and down steps. Taking no med's for the pain. Here to discuss options. documented in this encounter [facility] 11-25-2023 History of Present illness Narrative Radiology Service Progress Note PATIENT NAME: Tricia Granados DATE OF SERVICE: November 25, 2023 TIME: 9:52 AM PATIENT IDENTITY VERIFICATION COMPLETED USING TWO (2) IDENTIFIERS: Name and Date of confirmed by patient verbally. FALL SCREENING: Has the patient had 2 falls in the last year or 1 fall with injury or currently using an Ambulatory Assistive Device (Walker, Cane, Wheelchair, Crutches, etc.)? No PATIENT GENDER DATA: Female. status: : No status: NO. PATIENT RELEVANT IMPLANT DATA REVIEWED: Not Applicable PATIENT PRESENTS WITH AN IMPLANTABLE OR ATTACHED DOG RACES MANAGER: No RADIOLOGY DEPARTMENT: General X-ray: Exam(s) Completed: Lower Extremity X-Ray(s): Knee, AP / Lat / Tunne / Merchant Bilateral and Wt. Bearing PERIPHERAL IV DATA: Not applicable SIGNED BY: RT Agapito(R) November 25, 2023 9:52 AM documented in this encounter [facility] 08-19-2023 History of Present illness Narrative Associated Order(s): Large Joint Arthro/Inj: bilateral knee joints Post-Procedure Diagnose(s): Primary osteoarthritis of both knees; Chronic pain of both knees Large Joint Arthro/Inj: bilateral knee joints Informed Consent Consent Obtained: Verbal [place] Protocol A moment to CARE was completed. SIGN IN Sign in communication not applicable due to emergent procedure. Personnel directly involved with the procedure wore the appropriate PPE. Special Equipment: N/A Patient/Surrogate Stated/Verified: Patient name, Date of , Relevant allergies and Intended procedure TIME OUT Intended patient and procedure match the source document(s). Consent documented and matches the intended procedure. Relevant labs, photos, and/or imaging studies have been reviewed. Correct side/site marked and visible. Medications required for procedure verified. No fire risk assessment and interventions applicable. No implant(s) inserted. 08/19/2023 10:11 AM The procedure site was prepped in the usual sterile fashion. Site: bilateral knee joints Medications (Right): 6 mg betamethasone acetate-betamethasone sodium phosphate 6 mg/mL Medications (Left): 6 mg betamethasone acetate-betamethasone sodium phosphate 6 mg/mL Anesthetics (Right): 5 mL lidocaine (PF) 10 mg/mL (1 %) Anesthetics (Left): 5 mL lidocaine (PF) 10 mg/mL (1 %) Outcome: Tolerated well, no immediate complications Post-injection instructions were reviewed with the patient and the patient voiced understanding of these instructions. SIGN OUT No instruments, equipment or retained foreign bodies applicable. AMB ROOMING INTAKE FLOWSHEET DATA 14 wk post visit OA, B/L knee with cortisone injection. Pt requesting injections today. Relief with previous. Sabiha Chew MA documented in this encounter [facility] 02-25-2023 Miscellaneous Notes Order faxed to [phone]. Randall Purcell Order placed. Please fax as requested. Please remind patient that is should not be done until at least 04/04/23. Keturah Velasco APRN.CUSTOMS IMPORT SPECIALIST Care everywhere shows it was completed 04/03/22 Patient is calling requesting order for Mammography to be placed and faxed to in [place]. Patient states she did complete in 2021 but do not see these reports in [facility]. documented in this encounter [facility] 02-04-2023 History of Present illness Narrative Associated Order(s): Large Joint Arthro/Inj: bilateral knee joints Post-Procedure Diagnose(s): Primary osteoarthritis of both knees Large Joint Arthro/Inj: bilateral knee joints Informed Consent Consent Obtained: Verbal [place] Protocol A moment to CARE was completed. SIGN IN Sign in communication not applicable due to emergent procedure. Personnel directly involved with the procedure wore the appropriate PPE. Special Equipment: N/A Patient/Surrogate Stated/Verified: Patient name, Date of , Relevant allergies and Intended procedure TIME OUT Intended patient and procedure match the source document(s). Consent documented and matches the intended procedure. Relevant labs, photos, and/or imaging studies have been reviewed. Correct side/site marked and visible. Medications required for procedure verified. No fire risk assessment and interventions applicable. No implant(s) inserted. 02/04/2023 8:32 AM The procedure site was prepped in the usual sterile fashion. Site: bilateral knee joints Medications (Right): 6 mg betamethasone acetate-betamethasone sodium phosphate 6 mg/mL Medications (Left): 6 mg betamethasone acetate-betamethasone sodium phosphate 6 mg/mL Anesthetics (Right): 5 mL lidocaine (PF) 10 mg/mL (1 %) Anesthetics (Left): 5 mL lidocaine (PF) 10 mg/mL (1 %) Outcome: Tolerated well, no immediate complications Post-injection instructions were reviewed with the patient and the patient voiced understanding of these instructions. SIGN OUT No instruments, equipment or retained foreign bodies applicable. Patient presents with: Left Knee - Follow Up, Injections Right Knee - Follow Up, Injections 14 weeks post visit OA bilateral knees with injections given: Wants injections AMB ROOMING INTAKE FLOWSHEET DATA Pain Pain Level: 4 Pain Location: (Bilateral knees) Description: Stiffness, Sharp Duration Amount of Time: (Ongoing) Frequency: Intermittent Intervention/Comfort measure: (None) Patient states injections helped. Patient would like injections again. Taking no med's for the pain. documented in this encounter [facility] 10-29-2022 History of Present illness Narrative Associated Order(s): Large Joint Arthro/Inj: bilateral knee joints Post-Procedure Diagnose(s): Primary osteoarthritis of both knees Large Joint Arthro/Inj: bilateral knee joints Informed Consent Consent Obtained: Verbal [place] Protocol A moment to CARE was completed. SIGN IN Sign in communication not applicable due to emergent procedure. Personnel directly involved with the procedure wore the appropriate PPE. Special Equipment: N/A Patient/Surrogate Stated/Verified: Patient name, Date of , Relevant allergies and Intended procedure TIME OUT Intended patient and procedure match the source document(s). Consent documented and matches the intended procedure. Relevant labs, photos, and/or imaging studies have been reviewed. Correct side/site marked and visible. Medications required for procedure verified. No fire risk assessment and interventions applicable. No implant(s) inserted. 10/29/2022 8:51 AM The procedure site was prepped in the usual sterile fashion. Site: bilateral knee joints Medications (Right): 6 mg betamethasone acetate-betamethasone sodium phosphate 6 mg/mL Medications (Left): 6 mg betamethasone acetate-betamethasone sodium phosphate 6 mg/mL Anesthetics (Right): 5 mL lidocaine (PF) 10 mg/mL (1 %) Anesthetics (Left): 5 mL lidocaine (PF) 10 mg/mL (1 %) Outcome: Tolerated well, no immediate complications Post-injection instructions were reviewed with the patient and the patient voiced understanding of these instructions. SIGN OUT No instruments, equipment or retained foreign bodies applicable. Patient presents with: Left Knee - Follow Up, Injections Right Knee - Follow Up, Injections 15 weeks post visit Bilateral knee pain with injections giv: Wants injections Patient denies any pain today. She would injections in both of her knees. X-rays done today. documented in this encounter [facility] 10-18-2022 History of Present illness Narrative Patient presents with: 6 Month Exam HPI: Patient presents today for office visit for follow up HTN: Patient is compliant with meds Yes Monitors bp at home: Yes. Denies side effects: Yes. Chest pain: No. Dyspnea: No. Edema: No. Palpitations: No. Syncope: No. Headache: No. Dizziness: No. Got steroid shots in her knees. Feels much better. Still seeing [facility] for her heart. No bleeding or bruising. Remains on eliquis. Psych oarrs done. Not really using xanax. Component Latest Ref Rng & Units 10/13/2022 Protein, Total 6.3 - 8.0 g/dL 7.0 Albumin 3.9 - 4.9 g/dL 4.1 Calcium 8.5 - 10.2 mg/dL 9.7 Bilirubin, Total 0.2 - 1.3 mg/dL 1.2 Alkaline Phosphatase 34 - 123 U/L 92 AST 13 - 35 U/L 20 ALT 7 - 38 U/L 13 Glucose 74 - 99 mg/dL 106 (H) BUN 7 - 21 mg/dL 12 Creatinine 0.58 - 0.96 mg/dL 0.98 (H) Sodium 136 - 144 mmol/L 140 Potassium 3.7 - 5.1 mmol/L 4.4 Chloride 97 - 105 mmol/L 106 (H) CO2 22 - 30 mmol/L 22 Anion Gap 9 - 18 mmol/L 12 eGFR >=60 mL/min/1.73m 58 (L) WBC 3.70 - 11.00 k/uL 9.36 RBC 3.90 - 5.20 m/uL 4.62 Hemoglobin 11.5 - 15.5 g/dL 14.1 Hematocrit 36.0 - 46.0 % 43.9 MCV 80.0 - 100.0 fL 95.0 MCH 26.0 - 34.0 pg 30.5 MCHC 30.5 - 36.0 g/dL 32.1 RDW-CV 11.5 - 15.0 % 13.1 Platelet Count 150 - 400 k/uL 234 MPV 9.0 - 12.7 fL 11.8 Absolute nRBC <0.01 k/uL <0.01 Cholesterol, Total <200 mg/dL 154 Triglyceride <150 mg/dL 118 HDL Cholesterol >39 mg/dL 50 Non HDL Cholesterol <130 mg/dL 104 Fasting Time hrs 11 VLDL Cholesterol <30 mg/dL 24 TC:HDL Ratio <5.10 3.08 LDL Cholesterol <100 mg/dL 80 LDL:HDL Ratio <2.54 1.60 MEDICATIONS: Current Outpatient Medications Medication Sig losartan (COZAAR) 100 mg tablet Take 1 tablet by mouth once daily. metoprolol succinate ER (TOPROL XL) 25 mg 24 hr tablet Take 50 mg by mouth once daily. CARTIA XT 180 mg 24 hr capsule apixaban (ELIQUIS) 5 mg tab(s) Take 5 mg by mouth twice daily. benzonatate (TESSALON PERLES) 100 mg capsule Take 1 capsule by mouth three times daily as needed for cough. ALPRAZolam (XANAX) 0.5 mg tablet Taking as needed No current facility-administered medications for this visit. ALLERGIES: ALLERGIES Allergen Reactions Caffeine Intolerance PAST MEDICAL HISTORY Diagnosis Date Anxiety Atrial fibrillation (HCC) HTN (hypertension) Seborrheic keratosis right ear PAST SURGICAL HISTORY Procedure Laterality Date HYSTERECTOMY bleediing issues. no malignancy LAPAROSCOPIC CHOLECYSTECTOMY 01/11/1995 FAMILY HISTORY Problem Relation Age of Onset Hypertension Mother other (chf) Mother Stroke Father Ischemic Heart Disease Sister Social History Tobacco Use Smoking status: Former Smokeless tobacco: Never Vaping Use Vaping Use: Never used Substance Use Topics Alcohol use: No Drug use: No Reviewed current medications, allergies, past medical history, surgical history, family history and social history today. REVIEW OF SYSTEMS All other reviewed and negative other than HPI. HEALTH MAINTENANCE: Reviewed health maintenance issues today and recommended the following in detail. DTAP,TDAP,TD(1 - Tdap) Never done SHINGRIX VACCINE(1 of 2) Never done COVID-19 VACCINE(4 - Booster for Pfizer series) due on 04/20/2021 ADVANCE DIRECTIVE DISCUSSION -will bring in, her Daughter is he dpoa. DEPRESSION ASSESSMENT due on 04/22/2022 VITALS: BP 136/80 Pulse 60 Wt 93.9 kg (207 lb) SpO2 98% BMI 33.41 kg/m Last 4 Encounter Wt Readings: Date: Wt: 04/18/2022 95.5 kg (210 lb 9.6 oz) 10/14/2021 95.3 kg (210 lb) 03/08/2021 93.4 kg (206 lb) 09/05/2020 93.9 kg (207 lb) PHYSICAL EXAMINATION: General appearance: Well appearing, alert, in no acute distress, well-hydrated, well nourished. Skin: Skin color, texture, turgor normal, no suspicious rashes or lesions Head: Normocephalic, no masses, lesions, tenderness or abnormalities Neck: Supple, no adenopathy; thyroid symmetric, normal size, no bruits Lungs: Lungs clear to auscultation. No wheezing, rhonchi, rales Heart: RRR without murmur, gallop, or rubs. No ectopy Abdomen: Normal abdominal exam, Abdomen soft, non-tender. Bowel sounds normal. No masses, organomegaly Extremities: No deformities, edema, skin discoloration, clubbing or cyanosis. Good capillary refill. ASSESSMENT/PLAN: 1. Paroxysmal atrial fibrillation (HCC) - ICD9: 427.31, ICD10: I48.0 (primary diagnosis) - continue current meds. Call if any issues. 2. Primary hypertension - ICD9: 401.9, ICD10: I10 - Controlled - Continue current medications 3. Stage 3a chronic kidney disease (HCC) - ICD9: 585.3, ICD10: N18.31 - follow labs. - CBC + DIFF - BASIC METABOLIC PNL 4. Chronic anticoagulation - ICD9: V58.61, ICD10: Z79.01 - stable. 5. Anxiety - ICD9: 300.00, ICD10: F41.9 Doing quite well. Rosalino Carmona RTO in six months and prn. documented in this encounter [facility] 10-15-2022 Miscellaneous Notes Call to pt and notified her of Providers response below, verbalized understanding. Izzy Sullivan Ma ----- Message from Britney Ramos PA-C sent at 10/14/2022 12:28 PM EDT ----- Please let her know labs are stable/ good range. Thanks, Ed Ramos PA-C documented in this encounter [facility] 07-16-2022 History of Present illness Narrative Associated Order(s): Large Joint Arthro/Inj: bilateral knee joints Post-Procedure Diagnose(s): Primary osteoarthritis of both knees; Chronic pain of both knees Breanna Canseco PA-C Department of Orthopaedics Orthopaedics [address] [facility] [address] Dept: [phone] Dept July 16, 2022 CHIEF COMPLAINT: Established Patient and Pain of the Left Knee and Established Patient and Pain of the Right Knee. ASSESSMENT: M25.561, M25.562, G89.29 Chronic pain of both knees (primary encounter diagnosis) M17.0 Primary osteoarthritis of both knees SUMMARY/PLAN: Patient presents for repeat knee corticosteroid injections, her previous injections were 18 weeks ago, she tells me that her knee pain is starting to return but has not yet started to bother her that badly. She is unable to rate her pain today. Her son got her a lift chair which helps immensely with her knee pain. She is considering getting a raised toilet seat as she is still having discomfort in her knees when getting on and off the commode. Large Joint Arthro/Inj: bilateral knee joints Informed Consent Consent Obtained: Verbal [place] Protocol A moment to CARE was completed. SIGN IN Sign in communication not applicable due to emergent procedure. Personnel directly involved with the procedure wore the appropriate PPE. Special Equipment: N/A Patient/Surrogate Stated/Verified: Patient name, Date of , Relevant allergies and Intended procedure TIME OUT Intended patient and procedure match the source document(s). Consent documented and matches the intended procedure. Relevant labs, photos, and/or imaging studies have been reviewed. Correct side/site marked and visible. Medications required for procedure verified. No fire risk assessment and interventions applicable. No implant(s) inserted. 07/16/2022 8:41 AM The procedure site was prepped in the usual sterile fashion. Site: bilateral knee joints Medications (Right): 6 mg betamethasone acetate-betamethasone sodium phosphate 6 mg/mL Medications (Left): 6 mg betamethasone acetate-betamethasone sodium phosphate 6 mg/mL Anesthetics (Right): 5 mL lidocaine (PF) 10 mg/mL (1 %) Anesthetics (Left): 5 mL lidocaine (PF) 10 mg/mL (1 %) Outcome: Tolerated well, no immediate complications Post-injection instructions were reviewed with the patient and the patient voiced understanding of these instructions. Ms. Tricia Granados was advised as to contrast therapies and/or to take analgesics/anti-inflammatories as needed and all contraindications were reviewed. Supporting Information Below: Medications: Current Outpatient Medications Medication Sig losartan (COZAAR) 100 mg tablet Take 1 tablet by mouth once daily. metoprolol succinate ER (TOPROL XL) 25 mg 24 hr tablet Take 50 mg by mouth once daily. CARTIA XT 180 mg 24 hr capsule apixaban (ELIQUIS) 5 mg tab(s) Take 5 mg by mouth twice daily. benzonatate (TESSALON PERLES) 100 mg capsule Take 1 capsule by mouth three times daily as needed for cough. ALPRAZolam (XANAX) 0.5 mg tablet Taking as needed No current facility-administered medications for this visit. Allergies: Caffeine This note was partially generated using [employer] voice recognition system, and there may be some incorrect words, spellings, and punctuation that were not noted in checking the note before saving. Breanna Canseco PA-C AMB ROOMING INTAKE FLOWSHEET DATA Pain Pain Level: (unable to rate) Pain Location: (bilateral knees) Description: Sharp, Aching Duration Amount of Time: (ongoing) Frequency: Intermittent Intervention/Comfort measure: (none) Patient here today for 18 weeks post visit bilateral knee pain with injections given. Patient states she has had good relief from previous injection and her pain is starting to return. She would like to get injection again today. documented in this encounter [facility] 04-19-2022 Miscellaneous Notes Pt called and is notified of providers results and instructions. Pt voices understanding. She reports it's probably because she has a cold and sinus infection, provider just put her on antibiotics yesterday. Gregoria Anderson, RN Labs are ok other than white count is mildly up. Recheck cbc in one month and call if any signs of infection. documented in this encounter [facility] 04-18-2022 Miscellaneous Notes Addended by: ROSALINO CARMONA on: 04/18/2022 11:28 AM Modules accepted: Orders Addended by: LYNETTE WEINSTEIN MA on: 04/18/2022 11:21 AM Modules accepted: Orders documented in this encounter [facility] 04-18-2022 Instructions Rosalino Carmona MD - 04/18/2022 10:39 AM EST Mucinex or coricidin hbp for congestion. documented in this encounter [facility] 04-18-2022 History of Present illness Narrative Patient presents with: 6 Month Exam HPI: Patient presents today for office visit for follow up. Bp is up today. Has been taking otc decongestants. Has been upset due to siblings deaths. No chest pain or shortness of breath or edema. Still seeing Dr. Mchugh. Has been ill. Taking otc meds. Started with cough and congestion a week ago. Bringing up sputum. Did not take a covid test. No fever or chills. MEDICATIONS: Current Outpatient Medications Medication Sig losartan (COZAAR) 100 mg tablet Take 1 tablet by mouth once daily. metoprolol succinate ER (TOPROL XL) 25 mg 24 hr tablet Take 50 mg by mouth once daily. ALPRAZolam (XANAX) 0.5 mg tablet Taking as needed CARTIA XT 180 mg 24 hr capsule apixaban (ELIQUIS) 5 mg tab(s) Take 5 mg by mouth twice daily. No current facility-administered medications for this visit. ALLERGIES: ALLERGIES Allergen Reactions Caffeine Intolerance PAST MEDICAL HISTORY Diagnosis Date Anxiety Atrial fibrillation (HCC) HTN (hypertension) Seborrheic keratosis right ear PAST SURGICAL HISTORY Procedure Laterality Date HYSTERECTOMY 1969's bleediing issues. no malignancy LAPAROSCOPIC CHOLECYSTECTOMY 01/11/1995 FAMILY HISTORY Problem Relation Age of Onset Hypertension Mother other (chf) Mother Stroke Father Ischemic Heart Disease Sister Social History Tobacco Use Smoking status: Former Smokeless tobacco: Never Vaping Use Vaping Use: Never used Substance Use Topics Alcohol use: No Drug use: No Reviewed current medications, allergies, past medical history, surgical history, family history and social history today. REVIEW OF SYSTEMS All other reviewed and negative other than HPI. HEALTH MAINTENANCE: Reviewed health maintenance issues today and recommended the following in detail. COVID-19 VACCINE(4 - Booster for Pfizer series) due on 04/20/2021 DEPRESSION ASSESSMENT Never done VITALS: BP 180/100 Pulse 71 Temp 36.7 C (98 F) (Tympanic) Resp 16 Wt 95.5 kg (210 lb 9.6 oz) BMI 33.99 kg/m Last 4 Encounter Wt Readings: Date: Wt: 04/18/2022 95.5 kg (210 lb 9.6 oz) 10/14/2021 95.3 kg (210 lb) 03/08/2021 93.4 kg (206 lb) 09/05/2020 93.9 kg (207 lb) PHYSICAL EXAMINATION: General appearance: Well appearing, alert, in no acute distress, well-hydrated, well nourished. Skin: Skin color, texture, turgor normal, no suspicious rashes or lesions Head: Normocephalic, no masses, lesions, tenderness or abnormalities Heent: negative. Lungs: Lungs clear to auscultation. No wheezing, rhonchi, rales Heart: RRR without murmur, gallop, or rubs. No ectopy Abdomen: Normal abdominal exam, Abdomen soft, non-tender. Bowel sounds normal. No masses, organomegaly Extremities: No deformities, edema, skin discoloration, clubbing or cyanosis. Good capillary refill. Musculoskeletal: No joint swelling, deformity, or tenderness ASSESSMENT/PLAN: 1. Paroxysmal atrial fibrillation (HCC) - ICD9: 427.31, ICD10: I48.0 (primary diagnosis) - get labs. Call if any issues. 2. LBBB (left bundle branch block) - ICD9: 426.3, ICD10: I44.7 - stable. 3. Primary hypertension - ICD9: 401.9, ICD10: I10 - suboptimal control - recheck bp once off decongestants. Discussed using coricidin hbp - Goal of BP <130/80 4. Stage 3a chronic kidney disease (HCC) - ICD9: 585.3, ICD10: N18.31 - will follow 5. Chronic anticoagulation - ICD9: V58.61, ICD10: Z79.01 - stable 6. Anxiety - ICD9: 300.00, ICD10: F41.9 - doing well. Tolerating meds. 7. Bacterial sinusitis - ICD9: 473.9, 041.9, ICD10: J32.9, B96.89 - doxycycline and tessalon prn. - Discussed risks and benefits of new medication with the patient. Advised them to call if any side effects or questions. Red flags for re-assessment reviewed with patient in detail. Call if symptoms worsen at all or if not better in one to two weeks Reviewed diagnosis and treatment options in detail. Questions were answered. Patient expressed understanding of treatment plan. Rosalino Carmona documented in this encounter [facility] 03-12-2022 Miscellaneous Notes Faxed and patient informed. Cindy Aguiar done Patient is calling requesting PCP [facility] screening mammography order and fax to in [place]. documented in this encounter [facility] 03-12-2022 History of Present illness Narrative Associated Order(s): Large Joint Arthro/Inj: bilateral knee joints Post-Procedure Diagnose(s): Primary osteoarthritis of both knees; Chronic pain of both knees Large Joint Arthro/Inj: bilateral knee joints Informed Consent Consent Obtained: Verbal [place] Protocol A moment to CARE was completed. SIGN IN Sign in communication not applicable due to emergent procedure. Personnel directly involved with the procedure wore the appropriate PPE. Special Equipment: N/A Patient/Surrogate Stated/Verified: Patient name, Date of , Relevant allergies and Intended procedure TIME OUT Intended patient and procedure match the source document(s). Consent documented and matches the intended procedure. Relevant labs, photos, and/or imaging studies have been reviewed. Correct side/site marked and visible. Medications required for procedure verified. No fire risk assessment and interventions applicable. No implant(s) inserted. 03/12/2022 1:32 PM The procedure site was prepped in the usual sterile fashion. Site: bilateral knee joints Medications (Right): 6 mg betamethasone acetate-betamethasone sodium phosphate 6 mg/mL Medications (Left): 6 mg betamethasone acetate-betamethasone sodium phosphate 6 mg/mL Anesthetics (Right): 5 mL lidocaine (PF) 10 mg/mL (1 %) Anesthetics (Left): 5 mL lidocaine (PF) 10 mg/mL (1 %) Outcome: Tolerated well, no immediate complications Post-injection instructions were reviewed with the patient and the patient voiced understanding of these instructions. SIGN OUT Post-procedure follow-up management communicated and Plan of Care Visit completed when applicable Patient presents with: Left Knee - Established Patient, Follow Up, Injections Right Knee - Established Patient, Follow Up, Injections AMB ROOMING INTAKE FLOWSHEET DATA Risk Screening Do you have concerns about personal safety or safety in the home?: No Pain Pain Level: 7 Pain Location: (bilateral knees) Description: Dull, Aching Duration Amount of Time: (ongoing) Frequency: Continuous Intervention/Comfort measure: Relaxation HPI Patient is here today for 3 month follow up OA bilateral knees; patient was given injections at her last appointment. Patient states the injections lasted her until the last couple days. Requesting another injection into both knees today. documented in this encounter [facility] 12-18-2021 History of Present illness Narrative Associated Order(s): Large Joint Arthro/Inj: bilateral knee joints Post-Procedure Diagnose(s): Chronic pain of both knees; Primary osteoarthritis of both knees Breanna Canseco PA-C Department of Orthopaedics Orthopaedics [address] [facility] [address] Dept: [phone] Dept December 18, 2021 CHIEF COMPLAINT: New and Knee Pain of the Left Knee and New and Knee Pain of the Right Knee (Bilateral knee pain- Ref Dr. Carmona- raymundo 10/14/21) Ms. Tricia Granados is a 81 year old female she presents with pain in both of her knees for the past several years, pain is getting worse with time. Pain today is a 2 out of 10 sharp aching in both knees. She tells me that she has difficulty when at home, her son had to build her a ramp for the first 4 stairs coming into the house. She said her legs feel very weak and she has a difficult time lifting them to. Also has a difficult time lowering herself onto the commode. She does not have any discomfort when walking on level ground. She is unable to take oral anti-inflammatories as she is anticoagulated for her atrial fibrillation. She tells me that she has neuropathy in both lower extremities, self diagnosed. Patient tells me that she is not a motor vehicle accident in ' and has some disc disease in her low back. ASSESSMENT: M17.0 Primary osteoarthritis of both knees (primary encounter diagnosis) M25.561, M25.562, G89.29 Chronic pain of both knees PLAN: She has bilateral knee osteoarthritis and is interested in trying corticosteroid injections in both knees today. She is also asking about viscosupplementation. I would like to get some lumbar films as well, as she is complaining of weakness in the legs which may be related to her lumbar disc disease. Patient agrees to plan. Ms. Tricia Granados was advised as to contrast therapies and/or to take analgesics/anti-inflammatories as needed and all contraindications were reviewed. OBJECTIVE: Ms. Tricia Granados is a pleasant 81 year old in no apparent distress. Gen:There were no vitals taken for this visit. nl development, obese, no deformities ENT: Normocephalic, normal hearing, moist mucosa CV: Pulses:DP/PT= 2+ and symmetric, capillary refill < 2 secs, no peripheral edema/varicosities Skin: no rash, bruising or lesions. Good turgor. Psych: cooperative and appropriate, alert and oriented x 3, good mood and affect. Musculoskeletal: KNEE EXAM: Left: Alignment: Neutral Range of motion is 0 degrees in extension and 120 degrees of flexion. Extension La degrees Pain with ROM: Yes Effusion: Slight Tender to the palpation of Medial femoral condyle and Medial joint line Pain with patellar compression: Yes Stability: Anterior/Posterior stable and Varus/Valgus stable Hip Exam: flexion to 100+ degrees, full extension, internal/external rotation adequate, and no pain with log roll Neurovascular Status: Sensation Intact, Moves foot and ankle up & down, and 2+ dorsalis pedis Right: Alignment: Neutral Range of motion is 0 degrees in extension and 120 degrees of flexion. Extension La degrees Pain with ROM: Yes Effusion: Slight Tender to the palpation of Medial femoral condyle and Medial joint line Pain with patellar compression: No Stability: Anterior/Posterior stable and Varus/Valgus stable Hip Exam: flexion to 100+ degrees, full extension, internal/external rotation adequate, and no pain with log roll Neurovascular Status: Sensation Intact, Moves foot and ankle up & down, and 2+ dorsalis pedis Large Joint Arthro/Inj: bilateral knee joints Informed Consent Consent Obtained: Verbal [place] Protocol A moment to CARE was completed. SIGN IN Sign in communication not applicable due to emergent procedure. Personnel directly involved with the procedure wore the appropriate PPE. Special Equipment: N/A Patient/Surrogate Stated/Verified: Patient name, Date of , Relevant allergies and Intended procedure TIME OUT Intended patient and procedure match the source document(s). Consent documented and matches the intended procedure. Relevant labs, photos, and/or imaging studies have been reviewed. Correct side/site marked and visible. Medications required for procedure verified. No fire risk assessment and interventions applicable. No implant(s) inserted. 12/18/2021 10:40 AM The procedure site was prepped in the usual sterile fashion. Site: bilateral knee joints Medications (Right): 6 mg betamethasone acetate-betamethasone sodium phosphate 6 mg/mL Medications (Left): 6 mg betamethasone acetate-betamethasone sodium phosphate 6 mg/mL Anesthetics (Right): 5 mL lidocaine (PF) 10 mg/mL (1 %) Anesthetics (Left): 5 mL lidocaine (PF) 10 mg/mL (1 %) Outcome: Tolerated well, no immediate complications Post-injection instructions were reviewed with the patient and the patient voiced understanding of these instructions. SIGN OUT Post-procedure follow-up management communicated and Plan of Care Visit completed when applicable Imaging: IMPRESSION: Stable degenerative changes as detailed in report. Refrigerator Repairman: PSCB Transcribe Date/Time: Oct 15 2021 9:25A Dictated by : JULIANN LEON MD This examination was interpreted and the report reviewed and electronically signed by: UJLIANN LEON MD on Oct 15 2021 9:30AM EST Results-Findings * * *Final Report* * * DATE OF EXAM: Oct 14 2021 9:06AM WOX [id number] - XR KNEE 4V AP/PA/LAT/MERCH OSBALDO / PROCEDURE REASON: multiple diagnoses * * * * Physician Interpretation * * * * EXAMINATION: XR KNEE 4V AP/PA/LAT/MERCH OSBALDO HISTORY: Chronic and diffuse bilateral knee pain increasing over time. Negative trauma. Chronic pain of both knees. TECHNIQUE: XR KNEE 4V AP/PA/LAT/MERCH OSBADLO Laterality: BILATERAL Number of different views (projections): 4 M: XB_1 COMPARISON: Comparison is made to prior knee study dated 11/14/2018 RESULT: Standing frontal radiographs of the bilateral knees with bilateral PA flexion views, sunrise views and bilateral lateral views show no acute osseous or articular process. There is osteopenia and pancompartmental degenerative change present with periarticular osteophytosis and mild narrowing of the medial tibiofemoral joint compartments bilaterally. There is intercondylar and patellar spurring with subtle narrowing of the left medial patellofemoral joint space. There is no suprapatellar joint fluid. The soft tissues are unremarkable. Supporting Subjective Information Below: Past Surgical History: PAST SURGICAL HISTORY Procedure Laterality Date HYSTERECTOMY 1970's bleediing issues. no malignancy LAPAROSCOPIC CHOLECYSTECTOMY 01/11/1995 Medications: Current Outpatient Medications Medication Sig losartan (COZAAR) 100 mg tablet Take 1 tablet by mouth once daily. metoprolol succinate ER (TOPROL XL) 25 mg 24 hr tablet Take 50 mg by mouth once daily. ALPRAZolam (XANAX) 0.5 mg tablet Taking as needed CARTIA XT 180 mg 24 hr capsule apixaban (ELIQUIS) 5 mg tab(s) Take 5 mg by mouth twice daily. No current facility-administered medications for this visit. Allergies: Caffeine ROS: General (negative for fatigue, malaise, weight loss/gain) HEENT (negative for headache, earache, recent vision changes, sinus pain, sore throat) Respiratory (no recent shortness of breath, hemoptysis) CV (negative for chest tightness, palpitations) Musculoskeletal (see HPI) Psych (no depression, anxiety) This note was partially generated using [employer] voice recognition system, and there may be some incorrect words, spellings, and punctuation that were not noted in checking the note before saving. Breanna Canseco PA-C Patient presents with: Left Knee - New, Knee Pain Right Knee - New, Knee Pain: Bilateral knee pain- Ref Dr. Shaggy fonseca 10/14/21 AMB ROOMING INTAKE FLOWSHEET DATA Risk Screening Do you have concerns about personal safety or safety in the home?: No Pain Pain Level: (no pain while sitting but pain as bad as 10 with movement) Pain Location: (bilateral knees) Description: Aching, Other: See comment, Sharp (cracking) Duration Amount of Time: 2 Duration Units: Years Frequency: Intermittent (pain with movement) Intervention/Comfort measure: Reposition, Relaxation Patient is here today for bilateral knee pain that has been ongoing for 2 years, but has gradually gotten worse. The patient is having trouble walking and getting around to do daily activities of living. Patient complains of painful cracking in both knees during movement. documented in this encounter [facility] 12-18-2021 History of Present illness Narrative Radiology Service Progress Note PATIENT NAME: Tricia Granados DATE OF SERVICE: December 18, 2021 TIME: 10:20 AM PATIENT IDENTITY VERIFICATION COMPLETED USING TWO (2) IDENTIFIERS: Name and Date of confirmed by patient verbally. FALL SCREENING: Has the patient had 2 falls in the last year or 1 fall with injury or currently using an Ambulatory Assistive Device (Walker, Cane, Wheelchair, Crutches, etc.)? No PATIENT GENDER DATA: Female. status: : No status: NO. PATIENT RELEVANT IMPLANT DATA REVIEWED: Not Applicable RADIOLOGY DEPARTMENT: General X-ray: Exam(s) Completed: Spine X-Ray(s): Lumbar AP / LAT / L5-S1 PERIPHERAL IV DATA: Not applicable SIGNED BY: RT Katy(R) December 18, 2021 10:20 AM documented in this encounter [facility] 10-14-2021 History of Present illness Narrative Radiology Service Progress Note PATIENT NAME: Tricia Granados DATE OF SERVICE: October 14, 2021 TIME: 8:51 AM PATIENT IDENTITY VERIFICATION COMPLETED USING TWO (2) IDENTIFIERS: Name and Date of confirmed by patient verbally. FALL SCREENING: Has the patient had 2 falls in the last year or 1 fall with injury or currently using an Ambulatory Assistive Device (Walker, Cane, Wheelchair, Crutches, etc.)? No PATIENT GENDER DATA: Female. status: : No status: NO. PATIENT RELEVANT IMPLANT DATA REVIEWED: Yes RADIOLOGY DEPARTMENT: General X-ray: Exam(s) Completed: Lower Extremity X-Ray(s): Knee, AP / Lat / Tunne / Merchant Bilateral and Wt. Bearing PERIPHERAL IV DATA: Not applicable SIGNED BY: RT Shankar(R) October 14, 2021 8:51 AM documented in this encounter [facility] 10-14-2021 History of Present illness Narrative Patient presents with: 6 Month Exam HPI: Patient presents today for office visit for follow up. HYPERTENSION:no chest pain. Denies palpitations Denies shortness of breath. CARDIO:follows with [facility](Dr. Mchugh) Denies dizziness. PSYCH:oarrs done. Has not filled xanax in some time. Is anxious. Her brother is passing away. He is in [place]. Feels she is doing ok. ANTICOAG:no bleeding issues. Knees are getting worse. Last xrayed in 2019. They are getting worse. Has done therapy. Discussed limitations of avoiding nsaids with her eliquis. She does not want surgery. Discussed possibly seeing ortho with injections. Component Latest Ref Rng & Units 10/09/2021 WBC 3.70 - 11.00 k/uL 8.71 RBC 3.90 - 5.20 m/uL 4.63 Hemoglobin 11.5 - 15.5 g/dL 14.0 Hematocrit 36.0 - 46.0 % 43.7 MCV 80.0 - 100.0 fL 94.4 MCH 26.0 - 34.0 pg 30.2 MCHC 30.5 - 36.0 g/dL 32.0 RDW-CV 11.5 - 15.0 % 12.9 Platelet Count 150 - 400 k/uL 239 MPV 9.0 - 12.7 fL 11.5 Neut% % 57.9 Abs Neut (ANC) 1.45 - 7.50 k/uL 5.05 Lymph% % 29.5 Abs Lymph 1.00 - 4.00 k/uL 2.57 Sebastian% % 8.2 Abs Sebastian <0.87 k/uL 0.71 Eosin% % 3.0 Abs Eosin <0.46 k/uL 0.26 Baso% % 0.6 Abs Baso <0.11 k/uL 0.05 Immature Gran % % 0.8 IMMATURE GRANS (ABS) <0.10 k/uL 0.07 NRBC /100 WBC 0.0 Absolute nRBC <0.01 k/uL <0.01 DTYPE Auto Protein, Total 6.3 - 8.0 g/dL 6.8 Albumin 3.9 - 4.9 g/dL 3.8 (L) Calcium 8.5 - 10.2 mg/dL 9.3 Bilirubin, Total 0.2 - 1.3 mg/dL 0.8 Alkaline Phosphatase 34 - 123 U/L 98 AST 13 - 35 U/L 20 ALT 7 - 38 U/L 14 Glucose 74 - 99 mg/dL 106 (H) BUN 7 - 21 mg/dL 17 Creatinine 0.58 - 0.96 mg/dL 0.98 (H) Sodium 136 - 144 mmol/L 138 Potassium 3.7 - 5.1 mmol/L 4.1 Chloride 97 - 105 mmol/L 106 (H) CO2 22 - 30 mmol/L 22 Anion Gap 9 - 18 mmol/L 10 eGFR >=60 mL/min/1.73m 58 (L) Cholesterol, Total <200 mg/dL 157 Triglyceride <150 mg/dL 133 HDL Cholesterol >39 mg/dL 48 Non HDL Cholesterol <130 mg/dL 109 Fasting Time hrs 13 VLDL Cholesterol <30 mg/dL 27 TC:HDL Ratio <5.10 3.27 LDL Cholesterol <100 mg/dL 82 LDL:HDL Ratio <2.54 1.71 MEDICATIONS: Current Outpatient Medications Medication Sig metoprolol succinate ER (TOPROL XL) 25 mg 24 hr tablet Take 50 mg by mouth once daily. CARTIA XT 180 mg 24 hr capsule apixaban (ELIQUIS) 5 mg tab(s) Take 5 mg by mouth twice daily. losartan (COZAAR) 100 mg tablet Take 1 tablet by mouth once daily. ALPRAZolam (XANAX) 0.5 mg tablet XANAX 0.5 MG TABS No current facility-administered medications for this visit. ALLERGIES: ALLERGIES Allergen Reactions Caffeine Intolerance PAST MEDICAL HISTORY Diagnosis Date Anxiety Atrial fibrillation (HCC) HTN (hypertension) PAST SURGICAL HISTORY Procedure Laterality Date HYSTERECTOMY 1969's bleediing issues. no malignancy LAPAROSCOPIC CHOLECYSTECTOMY 01/11/1995 FAMILY HISTORY Problem Relation Age of Onset Hypertension Mother other (chf) Mother Stroke Father Ischemic Heart Disease Sister Social History Tobacco Use Smoking status: Former Smoker Smokeless tobacco: Never Used Substance Use Topics Alcohol use: No Drug use: No Reviewed current medications, allergies, past medical history, surgical history, family history and social history today. REVIEW OF SYSTEMS All other reviewed and negative other than HPI. HEALTH MAINTENANCE: Reviewed health maintenance issues today and recommended the following in detail. ADVANCE DIRECTIVE DISCUSSION Never done Has dpoa and living will. Her daughter is her surrogate. VITALS: BP 160/90 Pulse 62 Resp 16 Wt 95.3 kg (210 lb) SpO2 97% BMI 33.89 kg/m Last 4 Encounter Wt Readings: Date: Wt: 10/14/2021 95.3 kg (210 lb) 03/08/2021 93.4 kg (206 lb) 09/05/2020 93.9 kg (207 lb) 01/28/2019 90.3 kg (199 lb) PHYSICAL EXAMINATION: General appearance: Well appearing, alert, in no acute distress, well-hydrated, well nourished. Skin: Skin color, texture, turgor normal, no suspicious rashes or lesions Head: Normocephalic, no masses, lesions, tenderness or abnormalities Lungs: Lungs clear to auscultation. No wheezing, rhonchi, rales Heart: RRR without murmur, gallop, or rubs. No ectopy Abdomen: Normal abdominal exam, Abdomen soft, non-tender. Bowel sounds normal. No masses, organomegaly Extremities: No deformities, edema, skin discoloration, clubbing or cyanosis. Good capillary refill. Musculoskeletal: No joint swelling, deformity, or tenderness Peripheral pulses: Normal Neuro: Negative. ASSESSMENT/PLAN: 1. Paroxysmal atrial fibrillation (HCC) - ICD9: 427.31, ICD10: I48.0 (primary diagnosis) - continue meds. Call if any issues. 2. Primary hypertension - ICD9: 401.9, ICD10: I10 - suboptimal control - Continue current medication(s) - Follow up in 1 month for BP recheck. - Goal of BP <130/80 - CBC + DIFF 3. Stage 3a chronic kidney disease (HCC) - ICD9: 585.3, ICD10: N18.31 - BASIC METABOLIC PNL 4. Chronic anticoagulation - ICD9: V58.61, ICD10: Z79.01 - CBC + DIFF 5. Anxiety - ICD9: 300.00, ICD10: F41.9 - rarely uses meds. 6. Chronic pain of both knees - ICD9: 719.46, 338.29, ICD10: M25.561, M25.562, G89.29 - XR KNEE GENERAL 4V AP BOTH/PA BOTH/LAT/MERC BILATERAL - CONSULT TO ORTHOPAEDICS Rosalino Carmona RTO in six months and prn. documented in this encounter [facility] Evaluation note Diagnosis Paroxysmal atrial fibrillation (HCC)- Primary Atrial fibrillation Primary hypertension Unspecified essential hypertension Stage 3a chronic kidney disease (HCC) Chronic anticoagulation Long-term (current) use of anticoagulants Anxiety Anxiety state, unspecified Chronic pain of both knees [facility] Diagnosis Primary osteoarthritis of both knees- Primary Primary localized osteoarthrosis, lower leg Chronic pain of both knees [facility] [place] [facility] Diagnosis Chronic pain of both knees documented in this encounter [facility] note* Diagnosis Chronic pain of both knees- Primary Primary osteoarthritis of both knees Primary localized osteoarthrosis, lower leg [facility] [place] [facility]* Diagnosis Encounter for screening mammogram for malignant neoplasm of breast- Primary Other screening mammogram [facility] Diagnosis Paroxysmal atrial fibrillation (HCC)- Primary Atrial fibrillation LBBB (left bundle branch block) Other left bundle branch block Primary hypertension Unspecified essential hypertension Stage 3a chronic kidney disease (HCC) Chronic anticoagulation Long-term (current) use of anticoagulants Anxiety Anxiety state, unspecified Bacterial sinusitis Unspecified sinusitis (chronic) [facility] Diagnosis Leukocytosis, unspecified type- Primary [facility] [place] Diagnosis Chronic pain of both knees- Primary Primary osteoarthritis of both knees Primary localized osteoarthrosis, lower leg [facility] [place] [facility] Diagnosis Pain in both knees, unspecified chronicity- Primary [facility] Diagnosis Paroxysmal atrial fibrillation (HCC)- Primary Atrial fibrillation Primary hypertension Unspecified essential hypertension Stage 3a chronic kidney disease (HCC) Chronic anticoagulation Long-term (current) use of anticoagulants Anxiety Anxiety state, unspecified [facility] [place] [facility] Diagnosis Primary osteoarthritis of both knees- Primary Primary localized osteoarthrosis, lower leg [facility] [place] [facility]* Diagnosis Encounter for screening mammogram for malignant neoplasm of breast- Primary Other screening mammogram [facility] [place] [facility] Diagnosis Primary osteoarthritis of both knees- Primary Primary localized osteoarthrosis, lower leg Chronic pain of both knees [facility] [place] [facility] Diagnosis Primary osteoarthritis of both knees- Primary Primary localized osteoarthrosis, lower leg Chronic pain of both knees [facility] [place] [facility] Diagnosis Primary osteoarthritis of both knees Primary localized osteoarthrosis, lower leg Chronic pain of both knees [facility] [place] [facility] Diagnosis Acute pain of both knees- Primary [facility] [place] [facility]* Diagnosis Primary osteoarthritis of both knees- Primary Primary localized osteoarthrosis, lower leg Chronic pain of both knees Fall, initial encounter [facility] [place] [facility]* Diagnosis Acute pain of both knees documented in this encounter [facility] note* Diagnosis Primary hypertension- Primary Unspecified essential hypertension Paroxysmal atrial fibrillation (HCC) Atrial fibrillation Chronic anticoagulation Long-term (current) use of anticoagulants Anxiety Anxiety state, unspecified Stage 3a chronic kidney disease (HCC) Pain in both knees, unspecified chronicity Epistaxis [facility] [place] [facility]* Diagnosis Chronic pain of both knees [facility] [place] [facility]* Diagnosis Anxiety- Primary Anxiety state, unspecified Acute bronchitis, unspecified organism Primary hypertension Unspecified essential hypertension Chronic fatigue Other malaise and fatigue Stage 3a chronic kidney disease (HCC) Chronic anticoagulation Long-term (current) use of anticoagulants Screening for lipid disorders Paroxysmal atrial fibrillation (HCC) Atrial fibrillation Disorder of iron metabolism, unspecified documented in this encounter [facility] note* Diagnosis Primary osteoarthritis of both knees- Primary Primary localized osteoarthrosis, lower leg [facility] [place] [facility]* Diagnosis Screening mammogram for breast cancer- Primary [facility] [place] [facility]* Diagnosis Encounter for screening mammogram for malignant neoplasm of breast documented in this encounter [facility] Work Phone: Evaluation note* Diagnosis Paroxysmal atrial fibrillation (HCC)- Primary Atrial fibrillation Primary hypertension Unspecified essential hypertension Stage 3a chronic kidney disease (HCC) Chronic anticoagulation Long-term (current) use of anticoagulants Anxiety Anxiety state, unspecified Screening for depression documented in this encounter [facility] note* Diagnosis Acute recurrent maxillary sinusitis- Primary Acute maxillary sinusitis Anxiety Anxiety state, unspecified Primary hypertension Unspecified essential hypertension [facility] [place] [facility]* Diagnosis Primary osteoarthritis of both knees- Primary Primary localized osteoarthrosis, lower leg [facility] [place] [facility]* Diagnosis Primary hypertension- Primary Unspecified essential hypertension Paroxysmal atrial fibrillation (HCC) Atrial fibrillation Chronic anticoagulation Long-term (current) use of anticoagulants Anxiety Anxiety state, unspecified Bacterial sinusitis Unspecified sinusitis (chronic) Fatigue, unspecified type documented in this encounter [facility] note* Diagnosis Renal insufficiency- Primary Unspecified disorder of kidney and ureter Hypothyroidism, acquired Unspecified hypothyroidism [facility] Diagnosis Hyponatremia- Primary Hyposmolality and/or hyponatremia Hypothyroidism, acquired Unspecified hypothyroidism [facility] Diagnosis Primary osteoarthritis of both knees- Primary Primary localized osteoarthrosis, lower leg [facility] Diagnosis Onset Date Resolution Status Admit Date Essential (primary) hypertension chronic January 08, 2025 10:02am Longstanding persistent atrial fibrillation chronic January 082024 10:02am [facility] Work Phone: Progress note Author Demetrice Greer [facility] Note Date/Time January 08, 2025 10:49am [facility] [address] [place] [address] OFFICE VISIT Date of Service: 01/08/25 MR#: [id number] Acct: [id number] Name: TRICIA GRANADOS Rep #: [id number] : 1940 Provider: SAMANTHA Oconnor Age/Sex: 84/F Location[place] [facility] Status: Signed HPI HPI History of Present Illness Details: Tricia Granados is an 84 year-old lady with a history of hypertension paroxysmal atrial fibrillation who returns for follow-up visit. From a cardiac standpoint, patient is doing well. She does not have any chest discomfort/heaviness/tightness. She does not have any worsening symptoms of shortness of breath. She does not have any orthopnea. She denies PND. She does not have any symptoms of congestive heart failure. She does not have any palpitations that she is aware of. She does not have any lightheadedness or dizziness. She does not have any near-syncope or syncope. She does not have any lower extremity edema. She does not have any symptoms of claudication. Her BP log at home demonstrated its is controlled. She has lost 30lbs over the last year. She has changed her eating habits. She is less fatigued. Intake Vital Signs 07/10/24 07:43 01/08/25 10:06 01/08/25 10:09 Height 5 ft 6 in 5 ft 6 in 5 ft 6 in Weight: 196 lb 185 lb BMI 31.6 29.8 BP 168/78 H 152/69 H 136/50 H Blood Pressure Location Lt brachial Lt brachial Position Sitting Sitting Respiration 18 18 Pulse 76 62 Pulse Source Monitor Monitor Pulse Oximetry (%) 99 97 Intake Visit Reasons: 6 M FU Cad Librarian Required: No Is patient in pain?: No Allergies caffeine Adverse Reaction (Verified 01/08/25 10:06) Other Medications ?Medication ?Instructions ?Recorded ?Confirmed ?Type hydralazine 50 mg tablet 50 mg PO TID 90 days #270 ta bs 06/24/24 01/08/25 Rx Eliquis 5 mg tablet (apixaban) 5 mg PO BID #60 TABLETS 08/19/24 01/08/25 Rx amlodipine 10 mg tablet 10 mg PO DAILY #90 TABLETS 0 10/14/24 01/08/25 Rx metoprolol succinate 50 mg 50 mg PO BID blood pressure This 10/16/24 01/08/25 Rx tablet,extended release 24 hr is a dose increase #180 tabs losartan 100 mg tablet See Rx Instructions .Route 0 01/07/25 01/08/25 Rx .COMPLEX blood pressure #90 tabs levothyroxine 25 mcg tablet 25 mcg PO QDAY 01/08/25 History (Synthroid) Ejection fraction %: 65 Have you fallen in the past year?: No PFSH Medical History Paroxysmal A-fib Chronic anticoagulation Longstanding persistent atrial fibrillation Left bundle branch block (LBBB) Obesity Paroxysmal atrial fibrillation Essential (primary) hypertension Transient global amnesia Anxiety disorder Surgical History Hx of appendectomy H/O oophorectomy History of cholecystectomy H/O: hysterectomy Family History Father CVA (cerebral vascular accident) Mother Hypertension Heart disease CHF (congestive heart failure) Social History Smoking Status: Former smoker how long ago did patient quit smokin years age alcohol intake: never caffeine: No ROS Const Const: Negative for fatigue, weakness, headache(s) or frequent falls Eyes Eyes: Negative for blurry vision ENT ENT: Negative for headache(s), dizziness or Nosebleed/epistaxis Cardio Chest Pain: No Palpitations: No Edema: Bilateral and None Muscle aches with walking: None Resp Respiratory: Negative for SOB with activity, SOB at rest or SOB orthopnea\\SOB lying down GI GI: Negative nausea, vomiting, heartburn, bright, red blood in stools or black,tarry stools : Negative for hematuria Neuro Neuro: Negative for dizziness, lightheadedness, near syncope, syncope, frequent falls, headache(s), weakness or blurry vision Endo Endo: Negative for fatigue Cardiology Exam Const Appearance: cooperative, no acute distress and well developed Orientation: alert, awake and oriented x3 Head Head: normal to inspection Ears: hearing grossly normal bilaterally Nose: external nose normal Face and Sinus: face symmetric Mouth: oral mucosae normal, lip normal and moist mucous membranes Eyes General: appearance normal, both eyes and all related structures Eyelids: eyelids normal Conjunctivae: conjunctivae normal Pupils: PERRL EOM: EOM intact bilaterally Neck Neck: normal visual inspection and trachea midline; Negative no JVD Carotids: Negative bruit Chest Chest inspection: normal inspection of the chest Auscultation: Bilateral: Clear to Auscultation Cardio Palpation: normal PMI Rate: regular rate Rhythm: regular rhythm Heart sounds: S1 normal and S2 normal; Negative rub, gallop or murmur GI GI: soft, no hepatosplenomegaly and bowel sounds present Neuro General: patient alert, patient awake, patient oriented x3 and CN's II-XI intactbilaterally Extremities Pulses: Normal: Right Posterior Tibial Pulse, Left Posterior Tibial Pulse, RightRadial Pulse and Left Radial Pulse Lower Extremity Edema: None: Bilateral Psych Psychological: anxious Supplemental Info Supplemental Information Echocardiogram 02/24/18: Interpretation Summary Normal LV size. Left ventricular systolic function is normal. The estimated ejection fraction is 65 %. Unable to assess diastolic dysfunction due to arrhythmia. Mild (1+) eccentric mitral valve insufficiency. Diagnostics: Electrocardiogram Echocardiogram Chest X-Ray Past Visits: Cardiology Visit Today Assessment and Plan Assessment and Plan (1) Essential (primary) hypertension: Status: Chronic Plan: Blood pressure is better controlled on current medications. She will continue with her amlodipine at 10 mg daily, losartan 100 mg daily, hydralazine 50 mg 3 times daily, metoprolol 50 mg twice daily (2) Longstanding persistent atrial fibrillation: Status: Chronic Plan: She does have chronic persistent atrial fibrillation. She will continue with her metoprolol Plan Details Follow Up: 01/08/25 (Keep as is with LACTATION COORDINATOR) Coding Level of Care Code Off vis,est,level 3 Diagnoses Essential (primary) hypertension I10 Longstanding persistent atrial fibrillation I48.11 Coding Level of Care Code Off vis,est,level 3 Diagnoses Essential (primary) hypertension I10 Longstanding persistent atrial fibrillation I48.11 Clinical Quality Measures Falls Risk Screening/Assistive Devices Have you fallen in the past year?: No Cardiac Ejection fraction %: 65 01/08/25 1200 <Electronically signed by Demetrice Santamaria> Date _ Demetrice SINGH Cosigner Signature: Date (if applicable) CC: ~ [facility] Work Phone: Reason for referral (narrative)* Diagnostic Procedure Only (Routine) - Closed Specialty Diagnoses / Procedures Referred By Gissell russell Referred To Contact XR IMAGING Diagnoses Chronic pain of both knees Procedures XR LUMBAR GENERAL 3V AP/LAT/L5-S1 RADEX SPINE LUMBOSACRAL 2/3 VIEWS Breanna Canseco PA-C [address] [place] [address] Xr Imaging Referral ID Status Reason Start Date Expiration Date V isits Requested Visits Authorized [id number] Closed Auto-Generate d Referral 12/18/2021 01/17/2023 1 1 [facility] for referral (narrative)* Diagnostic Procedure Only (Routine) - Closed Specialty Diagnoses / Procedures Referred By Contac t Referred To Contact XR IMAGING Diagnoses Chronic pain of both knees Procedures XR LUMBAR GENERAL 3V AP/LAT/L5-S1 RADEX SPINE LUMBOSACRAL 2/3 VIEWS Breanna Canseco PA-C [address] [place] [address] Xr Imaging Referral ID Status Reason Start Date Expiration Date V isits Requested Visits Authorized [id number] Closed Auto-Generate d Referral 12/18/2021 01/17/2023 1 1 [facility] for referral (narrative)* Diagnostic Procedure Only (Routine) - Pending Review Specialty Diagnoses / Procedures Referred By Tanac t Referred To Contact BR IMAGING Diagnoses Encounter for screening mammogram for malignant neoplasm of breast Procedures MC SCREENING W JOEL SCREENING DIGITAL BREAST TOMOSYNTHESIS BI SCREENING MAMMOGRAPHY BI 2-VIEW BREAST INC CAD Rosalino Carmona MD [address] [place] [address] Br Imaging [address] [place] [address] Referral ID Status Reason Start Date Expiration Date Visits Requested Visits Authorized [id number] Pending Review Auto-Generat ed Referral 04/11/2023 1 1 [facility] for referral (narrative)* Diagnostic Procedure Only (Routine) - Pending Review Specialty Diagnoses / Procedures Referred By Gissell russell Referred To Contact XR IMAGING Diagnoses Pain in both knees, unspecified chronicity Procedures XR KNEE GENERAL 4V AP BOTH/PA BOTH/LAT/MERC BILATERAL RADIOLOGIC EXAM KNEE COMPLETE 4/MORE VIEWS Breanna Canseco PA-C [address] [place] [address] Xr Imaging Referral ID Status Reason Start Date Expiration Date Visits Requested Visits Authorized [id number] Pending Review Auto-Generat ed Referral 10/17/2022 11/16/2023 1 1 [facility] for referral (narrative)* Diagnostic Procedure Only (Routine) - Pending Review Specialty Diagnoses / Procedures Referred By Gissell t Referred To Contact BR IMAGING Diagnoses Encounter for screening mammogram for malignant neoplasm of breast Procedures MC SCREENING W JOEL SCREENING DIGITAL BREAST TOMOSYNTHESIS BI SCREENING MAMMOGRAPHY BI 2-VIEW BREAST INC Rosalino Hernandez MD [address] [place] [address] Br Imaging [address] [facility] [place] [address] Referral ID Status Reason Start Date Expiration Date Visits Requested Visits Authorized [id number] Pending Review Auto-Generat ed Referral 02/25/2023 03/26/2024 1 1 [facility] for referral (narrative)* Diagnostic Procedure Only (Routine) - Closed Specialty Diagnoses / Procedures Referred By Gissell russell Referred To Contact XR IMAGING Diagnoses Primary osteoarthritis of both knees Chronic pain of both knees Procedures XR KNEE GENERAL 4V AP BOTH/PA BOTH/LAT/MERC BILATERAL RADIOLOGIC EXAM KNEE COMPLETE 4/MORE VIEWS Breanna Canseco PA-C [address] [place] [address] [place] [id number] Referral ID Status Reason Start Date Expiration Date V isits Requested Visits Authorized [id number] Closed Auto-Generate d Referral 11/25/2023 12/24/2024 1 1 [facility] for referral (narrative)* Diagnostic Procedure Only (Routine) - New Request Specialty Diagnoses / Procedures Referred By Tanac t Referred To Contact XR IMAGING Diagnoses Acute pain of both knees Procedures XR KNEE GENERAL 4V AP BOTH/PA BOTH/LAT/MERC BILATERAL RADIOLOGIC EXAM KNEE COMPLETE 4/MORE VIEWS Breanna Canseco PA-C [address] [place] [address] [place] [address] Referral ID Status Reason Start Date Expiration Date Visits Requested Visits Authorized [id number] New Request Auto-Generat ed Referral 12/25/2023 01/23/2025 1 1 [facility] for referral (narrative)* Diagnostic Procedure Only (Routine) - Closed Specialty Diagnoses / Procedures Referred By Gissell russell Referred To Contact XR IMAGING Diagnoses Acute pain of both knees Procedures XR KNEE GENERAL 4V AP BOTH/PA BOTH/LAT/MERC BILATERAL RADIOLOGIC EXAM KNEE COMPLETE 4/MORE VIEWS Breanna Canseco PA-C [address] [place] [address] [place] [address] Referral ID Status Reason Start Date Expiration Date V isits Requested Visits Authorized [id number] Closed Auto-Generate d Referral 12/25/2023 01/23/2025 1 1 [facility] for referral (narrative)* Diagnostic Procedure Only (Routine) - Closed Specialty Diagnoses / Procedures Referred By Gissell russell Referred To Contact XR IMAGING Diagnoses Chronic pain of both knees Procedures XR KNEE GENERAL 4V AP BOTH/PA BOTH/LAT/MERC BILATERAL RADIOLOGIC EXAM KNEE COMPLETE 4/MORE VIEWS Rosalino Carmona MD [address] [place] [address] [place] [address] Referral ID Status Reason Start Date Expiration Date V isits Requested Visits Authorized [id number] Closed Auto-Generate d Referral 10/14/2021 11/13/2022 1 1 [facility] for referral (narrative)* Diagnostic Procedure Only (Routine) - New Request Specialty Diagnoses / Procedures Referred By Gissell russell Referred To Contact BR IMAGING Diagnoses Screening mammogram for breast cancer Procedures MC SCREENING W JOEL SCREENING DIGITAL BREAST TOMOSYNTHESIS BI SCREENING MAMMOGRAPHY BI 2-VIEW BREAST INC CAD Rosalino Carmona MD [address] [place] [address] Br Imaging [address] [place] [address] Referral ID Status Reason Start Date Expiration Date Visits Requested Visits Authorized [id number] New Request Auto-Generat ed Referral 03/25/2024 04/24/2025 1 1 [facility] for referral (narrative)No reason for referral information availableWitham [facility] Work Phone: reason for visit Narrative* Diagnostic Procedure Only (Routine) - Closed Specialty Diagnoses / Procedures Referred By Contac t Referred To Contact XR IMAGING Diagnoses Chronic pain of both knees Procedures XR LUMBAR GENERAL 3V AP/LAT/L5-S1 RADEX SPINE LUMBOSACRAL 2/3 VIEWS Vetovitz, Breanna, PA-C [address] [place] [address] Xr Imaging Referral ID Status Reason Start Date Expiration Date V isits Requested Visits Authorized [id number] Closed Auto-Generate d Referral 12/18/2021 01/17/2023 1 1 [facility] for visit Narrative* Diagnostic Procedure Only (Routine) - Closed Specialty Diagnoses / Procedures Referred By Contac t Referred To Contact XR IMAGING Diagnoses Primary osteoarthritis of both knees Chronic pain of both knees Procedures XR KNEE GENERAL 4V AP BOTH/PA BOTH/LAT/MERC BILATERAL RADIOLOGIC EXAM KNEE COMPLETE 4/MORE VIEWS Vetovitz, Breanna, PA-C [address] [place] [address] [place] [address] Referral ID Status Reason Start Date Expiration Date V isits Requested Visits Authorized [id number] Closed Auto-Generate d Referral 11/25/2023 12/24/2024 1 1 [facility] for visit Narrative* Diagnostic Procedure Only (Routine) - Closed Specialty Diagnoses / Procedures Referred By Contac t Referred To Contact XR IMAGING Diagnoses Acute pain of both knees Procedures XR KNEE GENERAL 4V AP BOTH/PA BOTH/LAT/MERC BILATERAL RADIOLOGIC EXAM KNEE COMPLETE 4/MORE VIEWS Vetovitz, Breanna, PA-C [address] [place] [address] [place] [address] Referral ID Status Reason Start Date Expiration Date V isits Requested Visits Authorized [id number] Closed Auto-Generate d Referral 12/25/2023 01/23/2025 1 1 [facility] for visit Narrative* Diagnostic Procedure Only (Routine) - Closed Specialty Diagnoses / Procedures Referred By Tanac t Referred To Contact XR IMAGING Diagnoses Chronic pain of both knees Procedures XR KNEE GENERAL 4V AP BOTH/PA BOTH/LAT/MERC BILATERAL RADIOLOGIC EXAM KNEE COMPLETE 4/MORE VIEWS Rosalino Carmona MD [address] [place] [address] [place] [address] Referral ID Status Reason Start Date Expiration Date V isits Requested Visits Authorized [id number] Closed Auto-Generate d Referral 10/14/2021 11/13/2022 1 1 [facility] for visit Narrative* Imaging (Routine) - Authorized Specialty Diagnoses / Procedures Referred By Gissell t Referred To Contact Radiology Diagnoses Encounter for screening mammogram for malignant neoplasm of breast Procedures BI mammo bilateral screening tomosynthesis Rosalino Carmona MD [address] [place] [address] Phone: tel: fax: Referral ID Status Reason Start Date Expiration Date Visits Requested Visits Authorized [id number] Authorized Perform Procedure 03/27/2024 03/27/2025 1 1 [facility] Work Phone: Summary Purpose Family History No Family History Records Found Relationship Condition Age at Onset Recorded Date/T heaven father Cerebrovascular accident (CVA) Unknown mother Hypertension Unknown Cardiac disease Unknown Congestive heart failure Unknown Advance Directives No Advanced Directives Records FoundNo Advanced Directives Records FoundNo Advanced Directives Records FoundNo Advanced Directives Records FoundNo Advanced Directives Records FoundNo Advanced Directives Records FoundNo Advanced Directives Records Found Reason for Referral Specialty Diagnoses / Procedures Referred By Gissell t Referred To Contact Orthopedics Diagnoses Chronic pain of both knees Procedures CONSULT TO ORTHOPAEDICS OFFICE/OUTPATIENT NEW HIGH MDM 60-74 MINUTES Rosalino Carmona MD [address] [place] [address] Referral ID Status Reason Start Date Expiration Date Visits Requested Visits Authorized [id number] Authorized PCP Requested Referral 10/14/2021 10/14/2022 1 1 Specialty Diagnoses / Procedures Referred By Contac t Referred To Contact XR IMAGING Diagnoses Chronic pain of both knees Procedures XR KNEE GENERAL 4V AP BOTH/PA BOTH/LAT/MERC BILATERAL RADIOLOGIC EXAM KNEE COMPLETE 4/MORE VIEWS Rosalino Carmona MD [address] [place] [address] Xr Imaging Referral ID Status Reason Start Date Expiration Date V isits Requested Visits Authorized [id number] Closed Auto-Generate d Referral 10/14/2021 11/13/2022 1 1 Specialty Diagnoses / Procedures Referred By Gissell russell Referred To Contact Diagnoses Anxiety Orquidea Robertson, EMPLOYEE BENEFITS SPECIALIST.[employer] IMP[employer] SPECIALIST [address] [place] [address] Referral ID Status Reason Start Date Expiration Date Visits Re quested Visits Authorized [id number] Closed 1 1 Medications Administered Section Inactive Administered Medications - up to 3 most recent administrations Medication Order MAR Action Action Date Dose Rate Site betamethasone acetate-betamethasone sodium phosphate 6 mg injection (CELESTONE) 6 mg, Injection - FOR ORTHO USE ONLY, ONE TIME INJECTION, 1 dose, Starting on Sat12/18/21 at 1040, Until Sat12/18/21 at 1040 Given 12/18/2021 10:40 AM EDT 6 mg Knee, Left betamethasone acetate-betamethasone sodium phosphate 6 mg injection (CELESTONE) 6 mg, Injection - FOR ORTHO USE ONLY, ONE TIME INJECTION, 1 dose, Starting on Sat12/18/21 at 1040, Until Sat12/18/21 at 1040 Given 12/18/2021 10:40 AM EDT 6 mg Knee, Right lidocaine (PF) 10 mg/mL (1 %) 5 mL injection (XYLOCAINE) 5 mL, Injection - FOR ORTHO USE ONLY, ONE TIME INJECTION, 1 dose, Starting on Sat12/18/21 at 1040, Until Sat12/18/21 at 1040 Given 12/18/2021 10:40 AM EDT 5 mL Knee, Left lidocaine (PF) 10 mg/mL (1 %) 5 mL injection (XYLOCAINE) 5 mL, Injection - FOR ORTHO USE ONLY, ONE TIME INJECTION, 1 dose, Starting on Sat12/18/21 at 1040, Until Sat12/18/21 at 1040 Given 12/18/2021 10:40 AM EDT 5 mL Knee, Right Inactive Administered Medications - up to 3 most recent administrations Medication Order MAR Action Action Date Dose Rate Site betamethasone acetate-betamethasone sodium phosphate 6 mg injection (CELESTONE) 6 mg, Injection - FOR ORTHO USE ONLY, ONE TIME INJECTION, 1 dose, Starting on Sat03/12/22 at 1332, Until Sat03/12/22 at 1332 Given 03/12/2022 1:32 PM EST 6 mg K nee, Left betamethasone acetate-betamethasone sodium phosphate 6 mg injection (CELESTONE) 6 mg, Injection - FOR ORTHO USE ONLY, ONE TIME INJECTION, 1 dose, Starting on Sat03/12/22 at 1332, Until Sat03/12/22 at 1332 Given 03/12/2022 1:32 PM EST 6 mg K nee, Right lidocaine (PF) 10 mg/mL (1 %) 5 mL injection (XYLOCAINE) 5 mL, Injection - FOR ORTHO USE ONLY, ONE TIME INJECTION, 1 dose, Starting on Sat03/12/22 at 1332, Until Sat03/12/22 at 1332 Given 03/12/2022 1:32 PM EST 5 mL K nee, Left lidocaine (PF) 10 mg/mL (1 %) 5 mL injection (XYLOCAINE) 5 mL, Injection - FOR ORTHO USE ONLY, ONE TIME INJECTION, 1 dose, Starting on Sat03/12/22 at 1332, Until Sat03/12/22 at 1332 Given 03/12/2022 1:32 PM EST 5 mL K nee, Right Inactive Administered Medications - up to 3 most recent administrations Medication Order MAR Action Action Date Dose Rate Site betamethasone acetate-betamethasone sodium phosphate 6 mg injection (CELESTONE) 6 mg, Injection - FOR ORTHO USE ONLY, ONE TIME INJECTION, 1 dose, Starting on Sat07/16/22 at 0841, Until Sat07/16/22 at 0841 Given 07/16/2022 8:41 AM EDT 6 mg Kn ee, Left betamethasone acetate-betamethasone sodium phosphate 6 mg injection (CELESTONE) 6 mg, Injection - FOR ORTHO USE ONLY, ONE TIME INJECTION, 1 dose, Starting on Sat07/16/22 at 0841, Until Sat07/16/22 at 0841 Given 07/16/2022 8:41 AM EDT 6 mg Kn ee, Right lidocaine (PF) 10 mg/mL (1 %) 5 mL injection (XYLOCAINE) 5 mL, Injection - FOR ORTHO USE ONLY, ONE TIME INJECTION, 1 dose, Starting on Sat07/16/22 at 0841, Until Sat07/16/22 at 0841 Given 07/16/2022 8:41 AM EDT 5 mL Kn ee, Left lidocaine (PF) 10 mg/mL (1 %) 5 mL injection (XYLOCAINE) 5 mL, Injection - FOR ORTHO USE ONLY, ONE TIME INJECTION, 1 dose, Starting on Sat07/16/22 at 0841, Until Sat07/16/22 at 0841 Given 07/16/2022 8:41 AM EDT 5 mL Kn ee, Right Inactive Administered Medications - up to 3 most recent administrations Medication Order MAR Action Action Date Dose Rate Site betamethasone acetate-betamethasone sodium phosphate 6 mg injection (CELESTONE) 6 mg, Injection - FOR ORTHO USE ONLY, ONE TIME INJECTION, 1 dose, Starting on Sat10/29/22 at 0851, Until Sat10/29/22 at 0851 Given 10/29/2022 8:51 AM EDT 6 mg Kn ee, Left betamethasone acetate-betamethasone sodium phosphate 6 mg injection (CELESTONE) 6 mg, Injection - FOR ORTHO USE ONLY, ONE TIME INJECTION, 1 dose, Starting on Sat10/29/22 at 0851, Until Sat10/29/22 at 0851 Given 10/29/2022 8:51 AM EDT 6 mg Kn ee, Right lidocaine (PF) 10 mg/mL (1 %) 5 mL injection (XYLOCAINE) 5 mL, Injection - FOR ORTHO USE ONLY, ONE TIME INJECTION, 1 dose, Starting on Sat10/29/22 at 0851, Until Sat10/29/22 at 0851 Given 10/29/2022 8:51 AM EDT 5 mL Kn ee, Left lidocaine (PF) 10 mg/mL (1 %) 5 mL injection (XYLOCAINE) 5 mL, Injection - FOR ORTHO USE ONLY, ONE TIME INJECTION, 1 dose, Starting on Sat10/29/22 at 0851, Until Sat10/29/22 at 0851 Given 10/29/2022 8:51 AM EDT 5 mL Kn ee, Right Inactive Administered Medications - up to 3 most recent administrations Medication Order MAR Action Action Date Dose Rate Site betamethasone acetate-betamethasone sodium phosphate 6 mg injection (CELESTONE) 6 mg, Injection - FOR ORTHO USE ONLY, ONCE, 1 dose, Starting on Sat02/04/23 at 0832, Until Sat02/04/23 at 0832 Given 02/04/2023 8:32 AM EDT 6 mg Knee, Left betamethasone acetate-betamethasone sodium phosphate 6 mg injection (CELESTONE) 6 mg, Injection - FOR ORTHO USE ONLY, ONCE, 1 dose, Starting on Sat02/04/23 at 0832, Until Sat02/04/23 at 0832 Given 02/04/2023 8:32 AM EDT 6 mg Knee, Right lidocaine (PF) 10 mg/mL (1 %) 5 mL injection (XYLOCAINE) 5 mL, Injection - FOR ORTHO USE ONLY, ONCE, 1 dose, Starting on 02/04/23 at 0832, Until Sat02/04/23 at 0832 Given 02/04/2023 8:32 AM EDT 5 mL Knee, Left lidocaine (PF) 10 mg/mL (1 %) 5 mL injection (XYLOCAINE) 5 mL, Injection - FOR ORTHO USE ONLY, ONCE, 1 dose, Starting on Sat02/04/23 at 0832, Until Sat02/04/23 at 0832 Given 02/04/2023 8:32 AM EDT 5 mL Knee, Right Chief Complaint and Reason for Visit Chief Complaint Admit Date 6 M FU January 08, 2025 10:02am Reason for Visit Admit Date Essential (primary) hypertension Septemb er 2024 10:02am Longstanding persistent atrial fibrillat ion January 08, 2025 10:02am Additional Source Comments INFORMATION SOURCE (unrecogn ized section and content) DATE CREATED AUTHOR 12/16/2017 [facility] DATE CREATED AUTHOR AUTHOR'S ORGANIZ ATION 01/02/2019 [facility] DATE CREATED AUTHOR AUTHOR'S ORGANIZ ATION 04/11/2022 [facility] DATE CREATED AUTHOR AUTHOR'S ORGANIZ ATION 12/27/2023 [facility] DATE CREATED AUTHOR AUTHOR'S ORGANIZ ATION 04/13/2024 [facility] DATE CREATED AUTHOR AUTHOR'S ORGANIZ ATION 01/09/2025 [place] DATE CREATED AUTHOR AUTHOR'S CAMERON HASSAN 02/12/2025 [facility] Source Comments (unrecognize d section and content) In the event this informatio n is protected by the Federal Confidentiality of Alcohol and Drug Abuse Patient Records regulations: The Federal rules restrict any use of the information to criminally investigate or prosecute any alcohol or drug abuse patient.[facility] the event this information is protected by the Federal Confidentiality of Alcohol and Drug Abuse Patient Records regulations: The Federal rules restrict any use of the information to criminally investigate or prosecute any alcohol or drug abuse patient.[facility] HospitalIn the event this information is protected by the Federal Confidentiality of Alcohol and Drug Abuse Patient Records regulations: The Federal rules restrict any use of the information to criminally investigate or prosecute any alcohol or drug abuse patient.[facility] HospitalIn the event this information is protected by the Federal Confidentiality of Alcohol and Drug Abuse Patient Records regulations: The Federal rules restrict any use of the information to criminally investigate or prosecute any alcohol or drug abuse patient.[facility] HospitalIn the event this information is protected by the Federal Confidentiality of Alcohol and Drug Abuse Patient Records regulations: The Federal rules restrict any use of the information to criminally investigate or prosecute any alcohol or drug abuse patient.[facility] HospitalIn the event this information is protected by the Federal Confidentiality of Alcohol and Drug Abuse Patient Records regulations: The Federal rules restrict any use of the information to criminally investigate or prosecute any alcohol or drug abuse patient.[facility] HospitalIn the event this information is protected by the Federal Confidentiality of Alcohol and Drug Abuse Patient Records regulations: The Federal rules restrict any use of the information to criminally investigate or prosecute any alcohol or drug abuse patient.[facility] HospitalIn the event this information is protected by the Federal Confidentiality of Alcohol and Drug Abuse Patient Records regulations: The Federal rules restrict any use of the information to criminally investigate or prosecute any alcohol or drug abuse patient.[facility] HospitalIn the event this information is protected by the Federal Confidentiality of Alcohol and Drug Abuse Patient Records regulations: The Federal rules restrict any use of the information to criminally investigate or prosecute any alcohol or drug abuse patient.[facility] HospitalIn the event this information is protected by the Federal Confidentiality of Alcohol and Drug Abuse Patient Records regulations: The Federal rules restrict any use of the information to criminally investigate or prosecute any alcohol or drug abuse patient.[facility] HospitalIn the event this information is protected by the Federal Confidentiality of Alcohol and Drug Abuse Patient Records regulations: The Federal rules restrict any use of the information to criminally investigate or prosecute any alcohol or drug abuse patient.[facility] HospitalIn the event this information is protected by the Federal Confidentiality of Alcohol and Drug Abuse Patient Records regulations: The Federal rules restrict any use of the information to criminally investigate or prosecute any alcohol or drug abuse patient.[facility] HospitalIn the event this information is protected by the Federal Confidentiality of Alcohol and Drug Abuse Patient Records regulations: The Federal rules restrict any use of the information to criminally investigate or prosecute any alcohol or drug abuse patient.[facility] HospitalIn the event this information is protected by the Federal Confidentiality of Alcohol and Drug Abuse Patient Records regulations: The Federal rules restrict any use of the information to criminally investigate or prosecute any alcohol or drug abuse patient.[facility] HospitalIn the event this information is protected by the Federal Confidentiality of Alcohol and Drug Abuse Patient Records regulations: The Federal rules restrict any use of the information to criminally investigate or prosecute any alcohol or drug abuse patient.[facility] HospitalIn the event this information is protected by the Federal Confidentiality of Alcohol and Drug Abuse Patient Records regulations: The Federal rules restrict any use of the information to criminally investigate or prosecute any alcohol or drug abuse patient.[facility] HospitalIn the event this information is protected by the Federal Confidentiality of Alcohol and Drug Abuse Patient Records regulations: The Federal rules restrict any use of the information to criminally investigate or prosecute any alcohol or drug abuse patient.[facility] HospitalIn the event this information is protected by the Federal Confidentiality of Alcohol and Drug Abuse Patient Records regulations: The Federal rules restrict any use of the information to criminally investigate or prosecute any alcohol or drug abuse patient.[facility] HospitalIn the event this information is protected by the Federal Confidentiality of Alcohol and Drug Abuse Patient Records regulations: The Federal rules restrict any use of the information to criminally investigate or prosecute any alcohol or drug abuse patient.[facility] HospitalIn the event this information is protected by the Federal Confidentiality of Alcohol and Drug Abuse Patient Records regulations: The Federal rules restrict any use of the information to criminally investigate or prosecute any alcohol or drug abuse patient.[facility] HospitalIn the event this information is protected by the Federal Confidentiality of Alcohol and Drug Abuse Patient Records regulations: The Federal rules restrict any use of the information to criminally investigate or prosecute any alcohol or drug abuse patient.[facility] HospitalIn the event this information is protected by the Federal Confidentiality of Alcohol and Drug Abuse Patient Records regulations: The Federal rules restrict any use of the information to criminally investigate or prosecute any alcohol or drug abuse patient.[facility] HospitalIn the event this information is protected by the Federal Confidentiality of Alcohol and Drug Abuse Patient Records regulations: The Federal rules restrict any use of the information to criminally investigate or prosecute any alcohol or drug abuse patient.[facility] HospitalIn the event this information is protected by the Federal Confidentiality of Alcohol and Drug Abuse Patient Records regulations: The Federal rules restrict any use of the information to criminally investigate or prosecute any alcohol or drug abuse patient.[facility] HospitalIn the event this information is protected by the Federal Confidentiality of Alcohol and Drug Abuse Patient Records regulations: The Federal rules restrict any use of the information to criminally investigate or prosecute any alcohol or drug abuse patient.[facility] HospitalIn the event this information is protected by the Federal Confidentiality of Alcohol and Drug Abuse Patient Records regulations: The Federal rules restrict any use of the information to criminally investigate or prosecute any alcohol or drug abuse patient.[facility] HospitalIn the event this information is protected by the Federal Confidentiality of Alcohol and Drug Abuse Patient Records regulations: The Federal rules restrict any use of the information to criminally investigate or prosecute any alcohol or drug abuse patient.[facility] HospitalIn the event this information is protected by the Federal Confidentiality of Alcohol and Drug Abuse Patient Records regulations: The Federal rules restrict any use of the information to criminally investigate or prosecute any alcohol or drug abuse patient.[facility] HospitalIn the event this information is protected by the Federal Confidentiality of Alcohol and Drug Abuse Patient Records regulations: The Federal rules restrict any use of the information to criminally investigate or prosecute any alcohol or drug abuse patient.[facility] HospitalIn the event this information is protected by the Federal Confidentiality of Alcohol and Drug Abuse Patient Records regulations: The Federal rules restrict any use of the information to criminally investigate or prosecute any alcohol or drug abuse patient.[facility] HospitalIn the event this information is protected by the Federal Confidentiality of Alcohol and Drug Abuse Patient Records regulations: The Federal rules restrict any use of the information to criminally investigate or prosecute any alcohol or drug abuse patient.[facility] HospitalIn the event this information is protected by the Federal Confidentiality of Alcohol and Drug Abuse Patient Records regulations: The Federal rules restrict any use of the information to criminally investigate or prosecute any alcohol or drug abuse patient.[facility] HospitalIn the event this information is protected by the Federal Confidentiality of Alcohol and Drug Abuse Patient Records regulations: The Federal rules restrict any use of the information to criminally investigate or prosecute any alcohol or drug abuse patient.[facility] HospitalIn the event this information is protected by the Federal Confidentiality of Alcohol and Drug Abuse Patient Records regulations: The Federal rules restrict any use of the information to criminally investigate or prosecute any alcohol or drug abuse patient.[facility] HospitalIn the event this information is protected by the Federal Confidentiality of Alcohol and Drug Abuse Patient Records regulations: The Federal rules restrict any use of the information to criminally investigate or prosecute any alcohol or drug abuse patient.[facility] HospitalIn the event this information is protected by the Federal Confidentiality of Alcohol and Drug Abuse Patient Records regulations: The Federal rules restrict any use of the information to criminally investigate or prosecute any alcohol or drug abuse patient.[facility] HospitalIn the event this information is protected by the Federal Confidentiality of Alcohol and Drug Abuse Patient Records regulations: The Federal rules restrict any use of the information to criminally investigate or prosecute any alcohol or drug abuse patient.[facility] HospitalIn the event this information is protected by the Federal Confidentiality of Alcohol and Drug Abuse Patient Records regulations: The Federal rules restrict any use of the information to criminally investigate or prosecute any alcohol or drug abuse patient.[facility] HospitalIn the event this information is protected by the Federal Confidentiality of Alcohol and Drug Abuse Patient Records regulations: The Federal rules restrict any use of the information to criminally investigate or prosecute any alcohol or drug abuse patient.[facility] HospitalIn the event this information is protected by the Federal Confidentiality of Alcohol and Drug Abuse Patient Records regulations: The Federal rules restrict any use of the information to criminally investigate or prosecute any alcohol or drug abuse patient.[facility] HospitalIn the event this information is protected by the Federal Confidentiality of Alcohol and Drug Abuse Patient Records regulations: The Federal rules restrict any use of the information to criminally investigate or prosecute any alcohol or drug abuse patient.[facility] HospitalIn the event this information is protected by the Federal Confidentiality of Alcohol and Drug Abuse Patient Records regulations: The Federal rules restrict any use of the information to criminally investigate or prosecute any alcohol or drug abuse patient.[facility] HospitalIn the event this information is protected by the Federal Confidentiality of Alcohol and Drug Abuse Patient Records regulations: The Federal rules restrict any use of the information to criminally investigate or prosecute any alcohol or drug abuse patient.[facility] HospitalIn the event this information is protected by the Federal Confidentiality of Alcohol and Drug Abuse Patient Records regulations: The Federal rules restrict any use of the information to criminally investigate or prosecute any alcohol or drug abuse patient.[facility] HospitalIn the event this information is protected by the Federal Confidentiality of Alcohol and Drug Abuse Patient Records regulations: The Federal rules restrict any use of the information to criminally investigate or prosecute any alcohol or drug abuse patient.[facility] HospitalIn the event this information is protected by the Federal Confidentiality of Alcohol and Drug Abuse Patient Records regulations: The Federal rules restrict any use of the information to criminally investigate or prosecute any alcohol or drug abuse patient.[facility] HospitalIn the event this information is protected by the Federal Confidentiality of Alcohol and Drug Abuse Patient Records regulations: The Federal rules restrict any use of the information to criminally investigate or prosecute any alcohol or drug abuse patient.[facility] Reason for Visit (unrecogniz ed section and content) Reason Comments 6 Month Exam Reason Comments New Knee Pain New Bilateral knee pain- Ref Dr. Carmona- xray 10/14/21 Knee Pain Bilateral knee pain- Ref Dr. Coon xray 10/14/21 Specialty Diagnoses / Procedures Referred By Gissell russell Referred To Contact Orthopedics Diagnoses Chronic pain of both knees Procedures CONSULT TO ORTHOPAEDICS OFFICE/OUTPATIENT NEW HIGH MDM 60-74 MINUTES Rosalino Carmona MD [address] [place] [address] Referral ID Status Reason Start Date Expiration Date V isits Requested Visits Authorized [id number] Closed PCP Requested Referral 10/14/2021 10/14/2022 1 1 Reason Comments Established Patient Follow Up Injections Reason Comments Orders Reason Comments 6 Month Exam Reason Comments Results Reason Comments Erroneous encounter-disregard Reason Comments Established Patient Pain Reason Comments Follow Up Injections 15 weeks post visit Bilateral knee pain with injections giv Wants injections Reason Comments Follow Up Injections 14 weeks post visit 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 Wants injections Reason Comments Established Patient Reason Comments Follow Up Knee Pain 14 weeks post visit OA Bilateral knees w ith injections given Wants injection Reason Comments Patient Update Reason Onset Date Comments Transition Of Care 12/24/2023 [facility] Discharge 12/23/23 Reason Comments Patient Update Appointment Reason Comments Knee Pain Established Patient Reason Comments Hospital F/U [facility] Follow up Reason Comments Insurance Authorization hydroxyzine Reason Onset Date Comments Transition Of Care 12/31/2023 [facility] Follow-up Day 18 Reason Onset Date Comments Transition Of Care 01/07/2024 [facility] Follow-up Day 15 Reason Comments Patient Question Reason Onset Date Comments Transition Of Care 01/14/2024 [facility] Follow-up Day 22 Reason Comments Hypertension 4 week medication fo llow up Reason Comments Follow Up Reason Comments Medication Problem Reason Comments Patient Update Patient Question Reason Comments Follow Up Injections Follow Up 14 weeks post visit OA bilateral knees with injections givenWants injections Injections 14 weeks post visit OA bilateral knees with injections givenWants injections Reason Comments Injections Established Patient Injections 15 weeks post visit OA Bilateral knees with injections givenWants injections Established Patient 15 weeks post visit OA Bilateral knees with injections givenWants injections Reason Comments Follow Up Knee Pain Follow Up 14 weeks post visit OA Bilateral knees with injections givenWants injections Knee Pain 14 weeks post visit OA Bilateral knees with injections givenWants injections Care Teams (unrecognized sec tion and content) Barrel Rifler Operator Relationship Specialty Start Date End Date Rosalino Carmona MD [address] [place] [address] PCP - General Family Practice 02/17/18 Barrel Rifler Operator Relationship Specialty Start Date End Date Rosalino Carmona MD [address] [place] [address] PCP - General Family Practice 02/17/18 Barrel Rifler Operator Relationship Specialty Start Date End Date Rosalino Carmona MD [address] [place] [address] PCP - General Family Practice 02/17/18 Barrel Rifler Operator Relationship Specialty Start Date End Date Rosalino Carmona MD [address] [place] [address] PCP - General Family Medicine 02/17/18 Barrel Rifler Operator Relationship Specialty Start Date End Date Rosalino Carmona MD [address] [place] [address] PCP - General Family Medicine 02/17/18 Barrel Rifler Operator Relationship Specialty Start Date End Date Rosalino Carmona MD [address] [place] [address] PCP - General Family Medicine 02/17/18 Barrel Rifler Operator Relationship Specialty Start Date End Date Rosalino Carmona MD [address] [place] [address] PCP - General Family Medicine 02/17/18 Barrel Rifler Operator Relationship Specialty Start Date End Date Rosalino Carmona MD [address] [place] [address] PCP - General Family Medicine 02/17/18 Barrel Rifler Operator Relationship Specialty Start Date End Date Rosalino Carmona MD [address] [place] [address] PCP - General Family Medicine 02/17/18 Barrel Rifler Operator Relationship Specialty Start Date End Date Rosalino Carmona MD [address] [place] [address] PCP - General Family Medicine 02/17/18 Barrel Rifler Operator Relationship Specialty Start Date End Date Rosalino Carmona MD [address] [place] [address] PCP - General Family Medicine 02/17/18 Barrel Rifler Operator Relationship Specialty Start Date End Date Rosalino Carmona MD [address] [place] [address] PCP - General Family Medicine 02/17/18 Barrel Rifler Operator Relationship Specialty Start Date End Date Rosalino Carmona MD [address] [place] [address] PCP - General Family Medicine 02/17/18 Barrel Rifler Operator Relationship Specialty Start Date End Date Rosalino Carmona MD [address] [place] [address] PCP - General Family Medicine 02/17/18 Barrel Rifler Operator Relationship Specialty Start Date End Date Rosalino Carmona MD [address] [place], [place] [address] PCP - General Family Medicine 02/17/18 Barrel Rifler Operator Relationship Specialty Start Date End Date Rosalino Caromna MD [address] [place], [place] [address] PCP - General Family Medicine 02/17/18 Barrel Rifler Operator Relationship Specialty Start Date End Date Rosalino Carmona MD [address] [place], [place] [address] PCP - General Family Medicine 02/17/18 Barrel Rifler Operator Relationship Specialty Start Date End Date Rosalino Carmona MD [address] [place] [address] PCP - General Family Medicine 02/17/18 Barrel Rifler Operator Relationship Specialty Start Date End Date Rosalino Carmona MD [address] [place] [address] PCP - General Family Medicine 02/17/18 Cherelle Rush, RN [address] [place] [address] Primary Care Entry Level Assistant Manager 12/24/23 Barrel Rifler Operator Relationship Specialty Start Date End Date Rosalino Carmona MD [address] [place] [address] PCP - General Family Medicine 02/17/18 Cherelle Rush, RN [address] [place] [address] Primary Care Entry Level Assistant Manager 12/24/23 Barrel Rifler Operator Relationship Specialty Start Date End Date Rosalino Carmona MD [address] [place] [address] PCP - General Family Medicine 02/17/18 Cherelle Rush, RN [address] [place] [address] Primary Care Entry Level Assistant Manager 12/24/23 Barrel Rifler Operator Relationship Specialty Start Date End Date Rosalino Carmona MD [address] [place] [address] PCP - General Family Medicine 02/17/18 Cherelle Rush, RN [address] [place] [address] Primary Care Entry Level Assistant Manager 12/24/23 Barrel Rifler Operator Relationship Specialty Start Date End Date Rosalino Carmona MD [address] [place] [address] PCP - General Family Medicine 02/17/18 Cherelle Rush, RN [address] [place] [address] Primary Care Entry Level Assistant Manager 12/24/23 Barrel Rifler Operator Relationship Specialty Start Date End Date Rosalino Carmona MD [address] [place] [address] PCP - General Family Medicine 02/17/18 Cherelle Rush, RN [address] [place] [address] Primary Care Entry Level Assistant Manager 12/24/23 Barrel Rifler Operator Relationship Specialty Start Date End Date Rosalino Carmona MD [address] [place] [address] PCP - General Family Medicine 02/17/18 Cherelle Rush, RN [address] [place] [address] Primary Care Entry Level Assistant Manager 12/24/23 Barrel Rifler Operator Relationship Specialty Start Date End Date Rosalino Carmona MD [address] [place] [address] PCP - General Family Medicine 02/17/18 Cherelle Rush, FERCHO [address] [place] [address] Primary Care Entry Level Assistant Manager 12/24/23 Barrel Rifler Operator Relationship Specialty Start Date End Date Rosalino Carmona MD [address] [place], [place] [address] PCP - General Family Medicine 02/17/18 Barrel Rifler Operator Relationship Specialty Start Date End Date Rosalino Carmona MD [address] [place], [place] [address] PCP - General Family Medicine 02/17/18 Barrel Rifler Operator Relationship Specialty Start Date End Date Rosalino Carmona MD [address] [place], [place] [address] PCP - General Family Medicine 02/17/18 Barrel Rifler Operator Relationship Specialty Start Date End Date Rosalino Carmona MD [address] [place], [place] [address] PCP - General Family Medicine 02/17/18 Barrel Rifler Operator Relationship Specialty Start Date End Date Rosalino Carmona MD [address] [place] [address] PCP - General Family Medicine 02/17/18 Barrel Rifler Operator Relationship Specialty Start Date End Date Rosalino Carmona MD [address] [place], [place] [address] PCP - General Family Medicine 02/17/18 Keturah Velasco APRN.CNP [address] [place] [address] Uke Operator Family Medicine 03/30/24 Orquidea Robertson APRN.CUSTOMS IMPORT SPECIALIST [address] [place] [address] Uke Operator Family Medicine 03/30/24 Barrel Rifler Operator Relationship Specialty Start Date End Date Rosalino Carmona MD [address] [facility], [place] [address] PCP - General 04/22/20 Barrel Rifler Operator Relationship Specialty Start Date End Date Rosalino Carmona MD [address] [facility], [place] [address] [phone] PCP - General Family Medicine 02/17/18 Keturah Velasco EMPLOYEE BENEFITS SPECIALIST.CUSTOMS IMPORT SPECIALIST [address] [facility] [place] [address] Uke Operator Family Medicine 03/30/24 Orquidea Robertson EMPLOYEE BENEFITS SPECIALIST.CUSTOMS IMPORT SPECIALIST [address] [place] [address] Uke Operator Family Medicine 03/30/24 Barrel Rifler Operator Relationship Specialty Start Date End Date Rosalino Carmona MD [address] [place] [address] PCP - General Family Medicine 02/17/18 Keturah Velasco EMPLOYEE BENEFITS SPECIALIST.CUSTOMS IMPORT SPECIALIST [address] [facility] [place] [address] Uke Operator Family Medicine 03/30/24 Orquidea Robertson APRN.CUSTOMS IMPORT SPECIALIST [address] [place] [address] Uke Operator Family Medicine 03/30/24 Barrel Rifler Operator Relationship Specialty Start Date End Date Rosalino Carmona MD [address] [place] [address] PCP - General Family Medicine 02/17/18 Keturah Velasco APRN.CUSTOMS IMPORT SPECIALIST [address] [facility] [place] [address] Uke Operator Family Medicine 03/30/24 Orquidea Robertson APRN.CUSTOMS IMPORT SPECIALIST [address] [place] [address] Uke Operator Family Medicine 03/30/24 Barrel Rifler Operator Relationship Specialty Start Date End Date Rosalino Carmona MD [address] [place] [address] PCP - General Family Medicine 02/17/18 Keturah Velasco APRN.CUSTOMS IMPORT SPECIALIST [address] [place] [address] Uke Operator Family Medicine 03/30/24 Orquidea Robertson APRN.CUSTOMS IMPORT SPECIALIST [address] [place] [address] Uke Operator Family Medicine 03/30/24 Barrel Rifler Operator Relationship Specialty Start Date End Date Rosalino Carmona MD [address] [facility] [place] [address] PCP - General Family Medicine 02/17/18 Keturah Velasco APRN.CUSTOMS IMPORT SPECIALIST [address] [facility] [place] [address] Uke Operator Family Medicine 03/30/24 Orquidea Robertson APRN.CUSTOMS IMPORT SPECIALIST [address] [place] [address] Uke Operator Family Medicine 03/30/24 Barrel Rifler Operator Relationship Specialty Start Date End Date Rosalino Carmona MD [address] [facility] [place] [address] PCP - General Family Medicine 02/17/18 Keturah Velasco APRN.CUSTOMS IMPORT SPECIALIST [address] [place] [address] Uke Operator Family Medicine 03/30/24 Orquidea Robertson APRN.CUSTOMS IMPORT SPECIALIST [address] [facility] [place] [address] [facility] 03/30/24 Barrel Rifler Operator Relationship Specialty Start Date End Date Rosalino Carmona MD [address] [facility] [place] [address] PCP - General Family Medicine 02/17/18 Keturah Velasco, EMPLOYEE BENEFITS SPECIALIST.CUSTOMS IMPORT SPECIALIST [address] [place] [address] Uke Operator Family Medicine 03/30/24 Orquidea Robertson EMPLOYEE BENEFITS SPECIALIST.CUSTOMS IMPORT SPECIALIST [address] [facility] [place] [address] Uke Operator Family Medicine 03/30/24 Barrel Rifler Operator Relationship Specialty Start Date End Date Rosalino Carmona MD [address] [facility] [place] [address] PCP - General Family Medicine 02/17/18 Keturah Velasco EMPLOYEE BENEFITS SPECIALIST.CUSTOMS IMPORT SPECIALIST [address] [facility] [place] [address] Uke Operator Family Medicine 03/30/24 Orquidea Robertson APRN.[facility] [address] [place] [address] [facility] 03/30/24 Team Status: Active Member Role/Relationship Status Dates Dr. Rosalino Carmona MD Primary care physician Active Team Status: Inactive Member Role/Relationship Status Dates Dr. Rosalino Carmona MD Primary care physician Active Start: January 08, 2025 End: January 08, 2025 Dr. Rosalino Carmona MD Referring Provider Active Start: January 08, 2025 End: January 08, 2025 Demetrice SINGH, PA Attending physician Active Start: January 08, 2025 End: January 08, 2025 Goals (unrecognized section and content) Goals may be documented in a n alternate section FOR RECORDS PERTAINING TO PATIENTS WHO ARE OR HAVE BEEN ENROLLED IN A CHEMICAL DEPENDENCY/SUBSTANCEABUSE PROGRAM, SOME INFORMATION MAY BE OMITTED. This clinical summary was aggregated from multiple sources. Caution should be exercised in using it in the provision of clinical care. This summary normalizes information from multiple sources, and as a consequence, information in this document may materially change the coding, format and clinical context of patient data. In addition, data may be omitted in some cases. CLINICAL DECISIONS SHOULD BE BASED ON THE PRIMARY CLINICAL RECORDS. [employer] provides no warranty or guarantee of the accuracy or completeness of information in this document.
[2025-03-13 17:30] VITALS: BP 165/62; PULSE 69; RESP 24; TEMP 36.9; O2SAT 93
--- NOTE | 2025-03-13 17:35 | CT_ITS ---
PROCEDURE: SINUS/FACIAL BONE 03/13/2025 REASON FOR EXAM: INFECTION TECHNIQUE: Procedure Code: CTSI Modality: CT Procedure: SINUS/FACIAL BONE Coronal and Sagittal reconstruction series were provided. One or more dose reduction techniques were used (e.g., Automated exposure control, adjustment of the mA and/or kV according to patient size, use of iterative reconstruction technique). RADIATION DOSE SUMMARY: CTDlvol: 29.3 mGy DLP: 554 mGycm COMPARISON: None FINDINGS: Mucoperiosteal sinus thickening with a possible retention cyst within the left maxillary sinus. Remaining paranasal sinuses are grossly clear. Osseous structures are intact. Pterygoid plates are preserved. Zygomatic arches are normal. No erosive change. No fractures. Severe degenerative changes partially visualized within the cervical spine. Orbits are unremarkable. CT/Sinus/Facial Bone IMPRESSION: No acute CT process. Paranasal sinus disease as described above. [facility]
--- NOTE | 2025-03-13 17:40 | EDS_ITS ---
HPI History of Present Illness Chief Complaint: General Illness Informant: patient and family Narrative Narrative: 84-year-old female presenting to the emergency room stating she does not feel well. Patient states for the past week and a half she has had the "flu". She notes some sinus drainage and a slight cough. She feels globally weak and has decreased appetite. She states she does not believe she has had any fever. She states she been trying to drink plenty of fluids. She states nothing in particular is different about it today as compared to over the past couple days. She states she had the same type of illness last year that lasted about 2 weeks and resolved. [facility] Medical History Paroxysmal A-fib Chronic anticoagulation Longstanding persistent atrial fibrillation Left bundle branch block (LBBB) Obesity Paroxysmal atrial fibrillation Essential (primary) hypertension Transient global amnesia Anxiety disorder Home Medications Medication Instructions Recorded Last Taken Type hydralazine 50 mg tablet 50 mg PO TID 90 days #270 ta bs 06/24/24 Unknown Rx Eliquis 5 mg tablet (apixaban) 5 mg PO BID #60 TABLETS 08/19/24 Unknown Rx amlodipine 10 mg tablet 10 mg PO DAILY #90 TABLETS 0 10/14/24 Unknown Rx metoprolol succinate 50 mg 50 mg PO BID blood pressure This 10/16/24 Unknown Rx tablet,extended release 24 hr is a dose increase #180 tabs losartan 100 mg tablet See Rx Instructions .Route 0 01/07/25 Unknown Rx .COMPLEX blood pressure #90 tabs levothyroxine 25 mcg tablet 25 mcg PO QDAY 01/08/25 Un known History (Synthroid) amoxicillin 875 mg-potassium 875 mg PO Q12H #20 TABLET S 03/13/25 Unknown Rx clavulanate 125 mg tablet azithromycin 250 mg tablet 250 mg PO DAILY #4 TABLETS 03/13/25 Unknown Rx fluconazole 150 mg tablet 150 mg PO X1 PRN yeast infec #2 03/13/25 Unknown Rx tabs Allergy/AdvReac Type Severity Reaction Status Date / Time caffeine AdvReac Other Verified 03/13/25 16:30 Family History Father CVA (cerebral vascular accident) Mother Hypertension Heart disease CHF (congestive heart failure) Surgical History Hx of appendectomy H/O oophorectomy History of cholecystectomy H/O: hysterectomy Social History Smoking Status: Former smoker how long ago did patient quit smokin years age alcohol intake: never caffeine: No ROS ROS ED ROS Narrative Generalized weakness Constitutional Constitutional ED: Reports sweats; Denies chills, fever(s) or weight loss Eyes Eyes: Denies change in vision or diplopia ENT ENT ED: Reports other Details: Sinus congestion/drainage ; Denies ear pain, rhinorrhea or sore throat Cardiovascular Cardiovascular: Denies chest pain, orthopnea, palpitations or racing heartbeat Respiratory/Chest Respiratory/Chest: Reports cough; Denies dyspnea or orthopnea Gastrointestinal Gastrointestinal: Reports other Details: Decreased appetite ; Denies abdominal pain, diarrhea, nausea or vomiting Genitourinary Genitourinary ED: Denies dysuria, hematuria or urinary frequency Musculoskeletal Musculoskeletal: Reports arthralgias; Denies myalgias Integumentary Denies abscess or rash Neurologic Neurologic: Denies headache(s) or weakness Psychiatric Psychiatric: Denies anxiety, depression, suicidal ideation or suicidal thoughts Endocrine Endocrinology: Denies polydipsia, polyphagia or polyuria Allergic/Immunologic Allergic/Immunologic ED: Denies mouth swelling, tongue swelling or urticaria EXAM Physical Exam Const Vital Signs: 03/13/25 16:27 03/13/25 16:48 03/13/25 17:30 Temperature 98.6 F 98.5 F Temperature Source Oral Oral Pulse Rate 76 69 Respiratory Rate 16 24 H Respiratory Effort Normal Non-Labored Respiratory Pattern Normal Blood Pressure 157/73 H 165/62 H Blood Pressure Mean 101 96 Pulse Ox 96 93 Oxygen Delivery Method Room Air Room Air 03/13/25 17:51 03/13/25 19:00 03/13/25 20:00 Temperature 98.5 F Temperature Source Oral Pulse Rate 72 80 74 Respiratory Rate 25 H 24 H 17 Respiratory Effort Respiratory Pattern Blood Pressure 163/68 H 144/55 H 154/68 H Blood Pressure Mean 99 84 96 Pulse Ox 95 94 98 Oxygen Delivery Method Room Air Room Air Room Air 03/13/25 21:14 Temperature 98 F Temperature Source Pulse Rate 77 Respiratory Rate 20 H Respiratory Effort Respiratory Pattern Blood Pressure 150/65 H Blood Pressure Mean 93 Pulse Ox 97 Oxygen Delivery Method Positive well nourished and well developed General Appearance ED: well developed HEENT Reports normocephalic, head/scalp atraumatic and moist mucous membranes Eyes PERRL and EOMs intact bilaterally Neck no lymphadenopathy, supple and no JVD Resp normal respiratory effort and clear to auscultation bilaterally Cardio regular rhythm and no murmurs Rhythm: abnormal rhythm irregularly irregular GI normal to inspection, nondistended, normoactive bowel sounds and non-tender Palpation: soft Back/Spine no CVA tenderness and normal ROM Extremity normal to inspection General Extremety ED: Negative for edema General Extremity: Negative for edema Neuro oriented x3 and CN's II-XII intact bilaterally Sensorium / Orientation: alert Motor Exam: strength 5/5 throughout Psych mental status grossly normal Mood & Affect: Negative for depressed or tearful Skin no rashes or lesions noted and no wounds MDM MDM MDM Narrative Medical decision making narrative: Differential diagnosis includes viral syndrome UTI dehydration acute kidney injury pneumonia bronchitis UTI My independent interpretation a chest x-ray shows a small left pleural effusion with possible infiltrative changes versus atelectasis. As her symptoms has been going on for a week and a half I did not order COVID influenza RSV swab.. White count is slightly elevated 13.7 with a hemoglobin of 10.4. Creatinine 1.39 LFT showed alk phos of 116 total bilirubin 1.44 glucose 164. Urinalysis greater than 100 white cells 3+ bacteria negative nitrates positive leukocyte esterase. Patient's not febrile she does not complain of any urinary symptoms. She is not tachycardic. Her creatinine is elevated from a year ago. She gets her labs drawn at [facility] and I was not able to access those results during her ED visit. Clinically she is quite stable. We have placed her on Augmentin as well as azithromycin. I think at this point I think the patient can be discharged home. She was given return instructions. I have asked that she have early follow-up. Family is comfortable with this plan History & Record Review Discussion w/independent historian: Patient and Family Additional record(s) reviewed:: Prior labs Lab Data Attestation: I reviewed the patient's lab results. Labs: Laboratory Results - last 24 hr 03/13/25 03/13/25 16:40 17:45 WBC 13.7 H RBC 3.60 L Hgb 10.4 L Hct 31.4 L MCV 87.2 MCH 28.9 MCHC 33.1 RDW Std Deviation 42.3 RDW Coeff of August 13.4 Plt Count 454 H MPV 10.4 Immature Gran % (Auto) 3.000 H Neut % (Auto) 73.9 H Lymph % (Auto) 14.3 L [place] % (Auto) 6.9 Eos % (Auto) 1.2 Baso % (Auto) 0.7 Absolute Neuts (auto) 10.1 H Absolute Lymphs (auto) 1.95 Nucleated RBC % 0 Sodium 134 Potassium 3.1 L Chloride 101 Carbon Dioxide 18.6 L Anion Gap 14 BUN 14 Creatinine 1.39 H Estim Creat Clear Calc 33.47 L Est GFR (MDRD) Non-Af 37 L BUN/Creatinine Ratio 9.9 L Glucose 164 H Calcium 9.1 Total Bilirubin 1.44 H AST 25 ALT 7 Alkaline Phosphatase 116 H Total Protein 7.4 Albumin 3.7 Globulin 3.7 Albumin/Globulin Ratio 1.0 Urine Color Yellow Urine Clarity Sl. Cloudy Urine pH 6.0 Ur Specific [place] 1.015 Urine Protein 30 H Urine Glucose (UA) Normal Urine Ketones Negative Urine Occult Blood 10 H Urine Nitrite Negative Urine Bilirubin Negative Urine Urobilinogen Normal Ur Leukocyte Esterase 500 H Urine RBC 0-5 SEEN Urine WBC >100 SEEN Ur Squamous Epith Cells 0-5 SEEN Ur Transition Epith Cell 0-5 SEEN Ur Renal Epithelial Cell 0-5 SEEN Urine Bacteria 3+ Urine Mucus 0 SEEN Radiography Diagnostic Testing: Clinical Impression(s) from Imaging Studies Facial/Sinus 03/13/25 17:35 IMPRESSION: No acute CT process. Paranasal sinus disease as described above. Reading Location: [facility] Chest X-Ray 03/13/25 17:50 IMPRESSION: As above. Reading Location: [facility] Discharge Plan Triage Chief Complaint: General Illness ED Provider: Derrick Pham Dx/Rx/DC Orders Clinical Impression: Pneumonia Instructions: ED Pneumonia (Adult) Prescriptions: New azithromycin 250 mg tablet 250 mg PO DAILY Qty: 4 0RF amoxicillin-pot clavulanate 875-125 mg tablet 875 mg PO Q12H Qty: 20 0RF fluconazole 150 mg tablet 150 mg PO X1 PRN (Reason: yeast infec) Qty: 2 0RF Rx Instructions: take 1 pill, may repeat in 72 hours if needed No Action levothyroxine [Synthroid] 25 mcg tablet 25 mcg PO QDAY hydralazine 50 mg tablet 50 mg PO TID 90 Days Qty: 270 3RF Eliquis 5 mg tablet 5 mg PO BID Qty: 60 12RF amlodipine 10 mg tablet 10 mg PO DAILY Qty: 90 3RF metoprolol succinate 50 mg tablet extended release 24 hr 50 mg PO BID Qty: 180 3RF losartan 100 mg tablet See Rx Instructions .ROUTE .COMPLEX Qty: 90 3RF Dose Instruction: TAKE 1 TABLET BY MOUTH EVERY DAY Rx Instructions: TAKE 1 TABLET BY MOUTH EVERY DAY Primary Care Provider: Rosalino Raza Referrals: Rosalino Raza MD [Primary Care Provider, Medical] - 3-5 Days Print Language: Citizen Of [place] Disposition Disposition: Home, Self Care Discharge Date/Time: 03/13/25 21:18
[2025-03-13 17:48] LABS: Hematocrit 31.4 % (37-47); Hemoglobin 10.4 g/dL (12.0-15.0); Immature Granulocytes Count 0.410 X10^3/uL (0.0-0.0); Mean Corp Hgb Conc 33.1 g/dL (32-36); Mean Corpuscular Volume 87.2 fL (81-99); Mean Platelet Vol. 10.4 fl (6.2-12.0); NRBC Flagged by Analyzer 0 % (0-5); Platelet Count 454 K/mm3 (150-450); RBC Distribution Width CV 13.4 % (11.6-14.6); RBC Distribution Width SD 42.3 fl (35.1-43.9); Red Blood Count 3.60 M/mm3 (4.2-5.4); White Blood Count 13.7 K/mm3 (4.4-11.0)
--- NOTE | 2025-03-13 17:50 | RAD_ITS ---
PROCEDURE: CHEST PA AND LATERAL 03/13/2025 REASON FOR EXAM: COUGH TECHNIQUE: Procedure Code: RADCXR Modality: DX Procedure: CHEST PA AND LATERAL COMPARISON: Reviewed FINDINGS: The cardiomediastinal silhouette is poorly evaluated but appears slightly prominent. Left-sided pleural effusion with adjacent airspace disease. Right lung clear. No pneumothorax. Follow-up is advised. RAD/Chest PA and Lateral IMPRESSION: As above. Reading Location: [facility]
[2025-03-13 17:51] VITALS: BP 163/68; PULSE 72; RESP 25; TEMP 36.9; O2SAT 95
[2025-03-13 17:52] LABS: Color, Urine Yellow (Yellow); Glucose, Dipstick Normal (Normal); Ketone-Dipstick Negative (Negative); Leukocyte Esterase-Dipstick 500 /ul (Negative); Mucous, Urine 0 SEEN /hpf (<or=2+); Nitrite-Dipstick Negative (Negative); Occult Blood-Urine 10 /ul (Negative); Protein-Dipstick 30 mg/dl (Negative); Specific Gravity, Urine 1.015 (1.002-1.030); Urine Bilirubin Dipstick Negative (Negative)
[2025-03-13 18:07] LABS: AST(SGOT) 25 U/L (<=31); Alanine Aminotransfer ALT/SGPT 7 U/L (<=34); Albumin, Serum 3.7 g/dL (3.4-4.8); Alkaline Phosphatase 116 U/L (35-104); Anion Gap 14 (5-15); BUN 14 mg/dL (4-19); BUN/Creat Ratio 9.9 RATIO (10-20); Calcium,Total 9.1 mg/dL (7.6-11.0); Carbon Dioxide 18.6 mmol/L (21.0-32.0); Chloride 101 mmol/L (98-108); Estimated Creatinine Clearance 33.47 ml/min (50-250); Globulin 3.7 g/dL (2.2-4.2); Glucose 164 mg/dL (70-99); Potassium 3.1 mmol/L (3.3-5.1)
[2025-03-13 18:16] LABS: Red Blood Cells-Urine 0-5 SEEN /hpf (0-5); Squamous Epithelial Cells - UA 0-5 SEEN /hpf (5-10); Transitional Epithelial - Ur 0-5 SEEN /hpf (0-5)
[2025-03-13 19:00] VITALS: BP 144/55; PULSE 80; RESP 24; O2SAT 94
[2025-03-13 20:00] VITALS: BP 154/68; PULSE 74; RESP 17; O2SAT 98
[2025-03-13 21:14] VITALS: BP 150/65; PULSE 77; RESP 20; TEMP 36.6; O2SAT 97
== END 2025-03-13 21:18 | disposition home or self-care (01) ==
PROVIDERS: Emergency Provider Emergency Medicine; PCP Family Medicine; Visit Provider Emergency Medicine
DX: J18.9 Pneumonia, unspecified organism (principal); I48.0 Paroxysmal atrial fibrillation; I48.11 Longstanding persistent atrial fibrillation; I10 Essential (primary) hypertension; Z87.891 Personal history of nicotine dependence
CPT/HCPCS: 70486; 71046; 80053; 81001; 85025; 99284; A4216

== ENCOUNTER 2025-03-26 03:31 | Inpatient (IN) | payer MEDICARE, OTHER, SELFPAY ==
[2025-03-26] VITALS (39 sets, daily range): BP systolic 102–157; BP diastolic 44–94; PULSE 57–97; RESP 14–40; TEMP 36.5–37.9; O2SAT 52–99; BMI 29.7; BMI 30.4
--- NOTE | 2025-03-26 03:37 | EKG12_ITS ---
Test Reason : DYSRHYTHMIA Blood Pressure : */* mmHG Vent. 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
[2025-03-26 03:54] LABS: Hematocrit 27.7 % (37-47); Hemoglobin 9.0 g/dL (12.0-15.0); Immature Granulocytes Count 0.770 X10^3/uL (0.0-0.0); Mean Corp Hgb Conc 32.5 g/dL (32-36); Mean Corpuscular Volume 88.5 fL (81-99); Mean Platelet Vol. 10.2 fl (6.2-12.0); NRBC Flagged by Analyzer 0.1 % (0-5); POSITIVE DIFFERENTIAL YES; Platelet Count 413 K/mm3 (150-450); RBC Distribution Width CV 13.9 % (11.6-14.6); RBC Distribution Width SD 44.5 fl (35.1-43.9); Red Blood Count 3.13 M/mm3 (4.2-5.4); White Blood Count 25.1 K/mm3 (4.4-11.0)
--- OUTSIDE RECORDS SUMMARY | 2025-03-26 03:56 | XMS RPT_ITS | CCD ---
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 Rosalino Gonzalez Attending Unavail able Dr. Rosalino Carmona Primary Care Unavail able Rosalino Carmona MD Primary Care Provider Adri BRANTLEY, Cherelle Unavailable [phone] BREANNA CANSECO Referring Unavailable ROSALINO CARMONA Primary Care Unavailable Haagen SCREEN PRINTING STENCIL PREPARER.Keturah COFFEY Unavailable Suppan SCREEN PRINTING STENCIL PREPARER.ALEXX Orquidea A Unavailable Rosalino Carmona MD Primary Care Provider ROSALINO CARMONA Referring Unavailable ROSALINO CARMONA Primary Care Unavailable Suppan SCREEN PRINTING STENCIL PREPARER.ALEXX, Orquidea A Unavailable [phone] Suppan SCREEN PRINTING STENCIL PREPARER.ALEXX Orquidea A Unavailable Rosalino Carmona Referring Unavailable Kristine, Rosalino Primary Care Unavailable Demetrice Santiago Attending Unavail able Kristine, Rosalino Primary Care Unavailable Kristine, Rosalino Referring Unavailable Demetrice Santiago Attending Unavail able KristineRosalino Primary Care Unavailable Roland Harley Attending Unavailable Demetrice Santiago Referring Unavail able Kristine, Rosalino Primary Care Unavailable Demetrice Santiago Attending Unavail able Demetrice Satniago Referring Unavail able Whiteash, Rosalino Primary Care Unavailable Kristine, Rosalino Referring Unavailable Demetrice Santiago Attending Unavail able Dr. Rosalino Carmona MD Primary Care Physician [phone] Dr. Rosalino Carmona MD Referring Provider Demetrice [...] caffeine; Translations: [CAFFEINE] Drug Allergy 4 Intolerance [facility] Work Phone: Comment on above: PALPITATIONS (4 sources) NKDA drug allergy 3 [place] Doctor Evidence [facility] Work Phone: (1 source) ALLERGIES NOT ON FILE; Translations: [ALLERGIES NOT ON FILE] Propensity to adverse reactions (disorder) [facility] 2 Repository Medications Current Medications Medication Drug [...] One tablet by mouth daily LOSARTAN POTASSIUM [id number] Jeremy Mchugh MD Comment on above: Take [...] TABS One tablet by mouth daily ASPIRIN [id number] Aixa Seu RN benzonatate 100 mg oral capsule (20 sources) Non-narcotic Antitussive Start: 04-18-2022 End: 12-27-2023 take 1 capsule by mouth every eight hours as needed benzonatate (TESSALON PERLES) 100 mg capsule Take 1 capsule by mouth three times daily as needed for cough. 30 capsule 1 04/18/2022 12/27/2023 Discontinued (Course of therapy completed) Comment on above: Take 1 capsule by mo [facility] three times daily as needed for cough. [...] One tablet by mouth daily BIOTIN TABS [id number] Jeremy Mchugh MD Start: 02-15-2015 take 1 tablet by abe th once daily BIOTIN FORTE TABS One tablet by mouth daily BIOTIN TABS 75979955559 Jeremy Mchugh MD 24 hr dilTIAZem hydrochloride [...] th once daily CARDIZEM CD 180 MG [id number]-ZBN One tablet by mouth daily DILTIAZEM HCL COATED BEADS 71169472886 Jeremy Mchugh MD Start: 11-22-2011 take 1 tablet by abe th twice daily CARDIZEM CD 180 MG [id number]-DCF One tablet by mouth twice daily DILTIAZEM HCL COATED BEADS 30366200198 Demetrice Greer PA-C Start: 11-15-2011 take 1 tablet by abe th once daily CARDIZEM CD 240 MG [id number]-AAG One tablet by mouth daily DILTIAZEM HCL COATED BEADS 36446611027 Aixa Sue, RN hydrALAZINE hydrochloride 50 mg [...] One tablet by mouth daily LOSARTAN POTASSIUM-HCTZ 41373456397 Aixa Sue, RN levoFLOXacin 750 mg oral [...] th once daily TOPROL XL 25 MG [id number]-[id number] One tablet by mouth daily METOPROLOL SUCCINATE 29594871869 Jeremy Mchugh MD Comment on above: Take 50 mg by mouth once daily. POTASSIUM CHLORIDE GILBERTO CR (4 sources) Start: 02-26-2012 take 1 tablet by mouth once daily KLOR-CON M20 20 MEQ CR-TABS One tablet by mouth daily POTASSIUM CHLORIDE GILBERTO CR 97989345504 Jeremy Mchugh MD Start: 02-26-2012 End: 07-11-2012 take 1 tablet by mouth once daily KLOR-CON M20 20 MEQ CR-TABS One tablet by mouth daily POTASSIUM CHLORIDE GILBERTO CR 47245707463 Ira Mosley RN Problems Active Problems Problem [...] sources) Long-term current use of anticoagulant; Translations: [[facility] (current) use of anticoagulants] Onset: 02-15-2018 Episodic [...] Da te Episodic/Chronic Other aftercare (1 source) 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; Translations: [Chronic anticoagulation] [...] Free T4 [Mass/Vol] 1.4 ng/dL Normal 0.9-1.7 [facility] Comment on above: Order Comment: Speci men Type: BLOOD SPECIMENOrdering Facility: [facility] Address: [address] [place] [address] Performed By: #### 3 016-3, 3024-7 ####[facility] LABCLIA [id number] [place] [address] [place] TSH SerPl-aCncon 02-11-2025 TSH Qn 4.250 m[IU]/L High 0.270-4.200 [facility] Comment on above: Order Comment: Speci men Type: BLOOD SPECIMENOrdering Facility: [facility] Address: [address] [place] [address] Performed By: #### 3 016-3, 3024-7 ####[facility] LABCLIA [id number] [place] [address] [place] Cardiology Visit Reporton Cardiology Visit Report [facility] [address] [place], [place] [address] OFFICE VISIT Date of Service: 01/08/25 MR#: [id number] Acct: [id number] Name: TRICIA GRANADOS Rep #: [id number] : 1940 Provider: SAMANTHA Pendleton Age/Sex: 84/F Location: [facility] Status: Signed HPI HPI History of [...] 97 Intake Visit Reasons: 6 M FU Health Care Recruiter Required: No Is patient in pain?: No [...] rate Rh (more content not included)... Normal [facility] Basic metabolic 2000 panelon 01-05-2025 Anion gap [Moles/Vol] 11 mmol/L Normal 8-15 [facility] Comment on above: Order Comment: Speci men Type: BLOOD SPECIMENOrdering Facility: [facility] Address: [address] [place] [address] Performed By: #### 1 91239, 94387-8 ####[facility] LABCLIA [id number] [place] [address] [place] Calcium [Mass/Vol] 9.2 mg/dL Normal 8.5-10.2 [facility] Comment on above: Order Comment: Speci anh Type: BLOOD SPECIMENOrdering Facility: [facility] Address: [address] [place] [address] Performed By: #### 1 91239, 01878-9 ####[facility] LABCLIA [id number] [place] [address] [place] Chloride [Moles/Vol] 106 mmol/L Normal 98-107 [facility] Comment on above: Order Comment: Ieshai men Type: BLOOD SPECIMENOrdering Facility: [facility] Address: [address] [place] [address] Performed By: #### 1 91239, 67104-4 ####[facility] LABCLIA [id number] [place] [id number] [place] CO2 [Moles/Vol] 21 mmol/L Low 22-30 [facility] Comment on above: Order Comment: Speci men Type: BLOOD SPECIMENOrdering Facility: [facility] Address: [address] [place] [address] Performed By: #### 1 9123-9, 72954-7 ####[facility] LABIA [id number] [place] [id number] [place] Creatinine [Mass/Vol] 1.04 mg/dL High 0.58-0.96 [facility] Comment on above: Order Comment: Speci men Type: BLOOD SPECIMENOrdering Facility: [facility] Address: [address] [place] [address] Performed By: #### 1 9123-9, 02467-8 ####[facility] LABIA [id number] [place] [address] [place] eGFRcr SerPlBld CKD-EPI 2020 53 mL/min/1.73m??? Low >=60 [facility] Comment on above: Order Comment: Speci men Type: BLOOD SPECIMENOrdering Facility: [facility] Address: [address] [place] [address] Result Comment: Lilo mated Glomerular Filtration Rate [...] actual GFR. Performed By: #### 1 9123-9, 15248-2 ####[facility] LABIA [id number] [place] [id number] [place] Glucose [Mass/Vol] 92 mg/dL Normal 74-99 [facility] Comment on above: Order Comment: Speci men Type: BLOOD SPECIMENOrdering Facility: [facility] Address: [address] [place] [address] Result Comment: The [place] [employer] (ADA) provides guidance for cutoff [...] Standards of Medical Care in Diabetes 2016, [place] [employer]. Diabetes Care. 2016.39(Suppl 1). Performed By: #### 1 9123-9, 93313-6 ####[facility] LABCLIA [id number] [place] [address] [place] Potassium [Moles/Vol] 4.4 mmol/L Normal 3.7-5.1 [facility] Comment on above: Order Comment: Speci men Type: BLOOD SPECIMENOrdering Facility: [facility] Address: [address] [place] [address] Performed By: #### 1 9123-9, 44819-3 ####[facility] LABIA [id number] [place] [id number] [place] Sodium [Moles/Vol] 138 mmol/L Normal 136-144 [facility] Comment on above: Order Comment: Speci men Type: BLOOD SPECIMENOrdering Facility: [facility] Address: [address] [place] [address] Performed By: #### 1 9123-9, 25026-8 ####[facility] LABIA [id number] [place] [id number] [place] Urea nitrogen [Mass/Vol] 16 mg/dL Normal 7-21 [facility] Comment on above: Order Comment: Speci men Type: BLOOD SPECIMENOrdering Facility: [facility] Address: [address] [place] [id number] Performed By: #### 1 9123-9, 53466-0 ####[facility] LABIA [id number] [place] [address] [place] Magnesium SerPl-mCncon 01-05 Magnesium [Mass/Vol] 2.1 mg/dL Normal 1.7-2.3 [facility] Comment on above: Order Comment: Speci men Type: BLOOD SPECIMENOrdering Facility: [facility] Address: [address] [place] [address] Performed By: #### 1 9123-9, 70566-1 ####[facility] LABIA [id number] [place] [address] [place] CNOVon 12-28-2024 CNOV Office Visit (ORTHWS ) TRICIA GRANADOS ([id number]) 1940 F Date Time Provider Department 12/28/24 [...] these instructions. Informed Consent Consent Obtained: Verbal [place] Protocol A moment to CARE was completed. [...] hospitalized patients) applicable. Referring Provider: BREANNA CANSECO [[id number]] Allergies As of Date: 12/28/2024 Noted Allergy [...] [M17.0] Order(s):Large Joint Arthro/Inj: bilateral knee joints [QLO997] Order #: [id number] [] betamethasone acetate-betamethasone sodium phosphate 6 mg [...] 12/28/2024 Route: Inj-ORTHO BETAMETHASONE ACETATE AND SODIUM JK* 12/28/2024 12/28/2024 Route: Inj-ORTHO LIDOCAINE (PF) 10 MG/ML (1 %) INJECT* 12/28/2024 12/28/2024 Route: Inj-ORTHO LIDOCAINE (PF) 10 MG/ML (1 %) INJECT* 12/28/2024 12/28/2024 Route: Inj-ORTHO Encounter Status:Closed by BREANNA CANSECO on 12/28/24 Normal [facility] Large Joint Arthro/Inj: bila teral knee [...] these instructions. Informed Consent Consent Obtained: Verbal [place] Protocol A moment to CARE was completed. [...] the bedside nurse for hospitalized patients) applicable. [facility] Basic metabolic 2000 panelon 12-18-2024 Anion gap [Moles/Vol] 13 mmol/L Normal 8-15 [facility] Comment on above: Order Comment: Tessa kamara Type: BLOOD SPECIMENOrdering Facility: [facility] Address: [address] [place] [address] Performed By: #### T 4FTI, 3053-6, 75787-6 ####[facility] LABCLIA [id number] [place] [address] [place] Calcium [Mass/Vol] 9.5 mg/dL Normal 8.5-10.2 [facility] Comment on above: Order Comment: Tessa kamara Type: BLOOD SPECIMENOrdering Facility: [facility] Address: [address] [place] [address] Performed By: #### T 4FTI, 305-6, 03672-1 ####[facility] LABCLIA [id number] [address] [address] [place] Chloride [Moles/Vol] 100 mmol/L Normal 98-107 [facility] Comment on above: Order Comment: Speci men Type: BLOOD SPECIMENOrdering Facility: [facility] Address: [address] [place] [address] Performed By: #### T 4FTI, 30506-25, 75173-6 ####[facility] LABCLIA [id number] [place] [id number] [place] CO2 [Moles/Vol] 18 mmol/L Low 22-30 [facility] Comment on above: Order Comment: Speci men Type: BLOOD SPECIMENOrdering Facility: [facility] Address: [address] [place] [address] Performed By: #### T 4FTI, 305-, 45621-9 ####[facility] LABIA [id number] [place] [id number] [place] Creatinine [Mass/Vol] 1.08 mg/dL High 0.58-0.96 [facility] Comment on above: Order Comment: Speci men Type: BLOOD SPECIMENOrdering Facility: [facility] Address: [address] [place] [address] Performed By: #### T 4FTI, 30506-25, 27842-9 ####[facility] LABIA [id number] [address] [address] [place] eGFRcr SerPlBld CKD-EPI 2020 51 mL/min/1.73m??? Low >=60 [facility] Comment on above: Order Comment: Speci men Type: BLOOD SPECIMENOrdering Facility: [facility] Address: [address] [place] [address] Result Comment: Lilo mated Glomerular Filtration Rate [...] GFR. Performed By: #### T 4FLAURA, 3052-, 87644-4 ####[facility] LABCLIA [id number] [place] [id number] [place] Glucose [Mass/Vol] 102 mg/dL High 74-99 [facility] Comment on above: Order Comment: Speci men Type: BLOOD SPECIMENOrdering Facility: [facility] Address: [address] [place] [address] Result Comment: The [place] Diabetes Association (ADA) provides guidance for cutoff [...] Standards of Medical Care in Diabetes 2016, [place] [employer]. Diabetes Care. 2016.39(Suppl 1). Performed By: #### T 4FLAURA, 3052-09, 02287-9 ####[facility] LABIA [id number] [place] [id number] [place] Potassium [Moles/Vol] 4.2 mmol/L Normal 3.7-5.1 [facility] Comment on above: Order Comment: Tessa kamara Type: BLOOD SPECIMENOrdering Facility: [facility] Address: [address] [place] [address] Performed By: #### T 4FLAURA, 3052-09, 35486-2 ####[facility] LABIA [id number] [address] [place] [address] [place] Sodium [Moles/Vol] 131 mmol/L Low 136-144 [facility] Comment on above: Order Comment: Speci men Type: BLOOD SPECIMENOrdering Facility: [facility] Address: [address] [place] [address] Performed By: #### T 4FLAURA, 3056, 83734-0 ####[facility] LABCLIA [id number] [address], [place] [address] [place] Urea nitrogen [Mass/Vol] 11 mg/dL Normal 7-21 [facility] Comment on above: Order Comment: Speci men Type: BLOOD SPECIMENOrdering Facility: [facility] Address: [address] [place] [address] Performed By: #### T 4FLAURA, 3052-09, 69235-1 ####[facility] LABCLIA [id number] [address], [address] STATES OF [facility] T3 SerPl-mCncon 12-18-2024 T3 [Mass/Vol] 122 ng/dL Normal 79-165 [facility] Comment on above: Order Comment: Speci men Type: BLOOD SPECIMENOrdering Facility: [facility] Address: [address] [place] [address] Performed By: #### T 4FLAURA, 3052-09, 69087-2 ####[facility] LABCLIA [id number] [address], [facility] [place] T4/FTI/T4Uon 12-18-2024 FTI 8.9 ug/dL Normal 5.3-10.8 [facility] Comment on above: Order Comment: Speci men Type: BLOOD SPECIMENOrdering Facility: [facility] Address: [address] [place] [address] Performed By: #### T 4FLAURA, 3052-09, 49568-6 ####[facility] LABCLIA [id number] [address], [facility] [place] T4 [Mass/Vol] 7.6 ug/dL Normal 5.5-10.2 [facility] Comment on above: Order Comment: Speci men Type: BLOOD SPECIMENOrdering Facility: [facility] Address: [address] [place] [address] Performed By: #### T 4FTI, 3053-6, 35838-0 ####[facility] LABCLIA [id number] [address] OF [facility] T4 uptake [Mass/Vol] 0.85 Low 0.91-1.19 [facility] Comment on above: Order Comment: Speci men Type: BLOOD SPECIMENOrdering Facility: [facility] Address: [address] [place] [address] Performed By: #### T 4FTI, 3053-6, 83958-7 ####[facility] LABCLIA [id number] [place] [address] [place] TSH SerPl-aCncon 12-18-2024 TSH Qn 5.320 m[IU]/L High 0.270-4.200 [facility] Comment on above: Order Comment: Speci men Type: BLOOD SPECIMENOrdering Facility: [facility] Address: [address] [place] [address] Performed By: #### 3 016-3 ####[facility] LABCLIA [id number] [place] [address] [place] [facility] TRICIA GRANADOS ([id number]) 1940 F Date Time Provider Department 12/10/24 ROSALINO CARMONA [facility] During your visit today, we recorded [...] [E03.9] Order(s):BASIC METABOLIC PANEL [SQBMP] Order #: [id number] FUTURE THYROID STIMULATING HORMONE [SQTSH] Order #: [id number] FUTURE T4/FTI/T4U [PDC2ERV] Order #: [id number] FUTURE T3 [SQT3] Order #: [id number] FUTURE Prescriptions as of 12/10/2024 - hydrALAZINE [...] Status:Closed by GREGORIA ANDERSON on 12/10/24 Normal [facility] CBC W Auto Differential pane l (Bld)on 12-09-2024 Basophils (Bld) [#/Vol] 0.07 10*3/uL Normal <0.11 [facility] Comment on above: Order Comment: Speci men Type: BLOOD SPECIMENOrdering Facility: [facility] Address: [address] [place] [address] Performed By: #### 5 7021-8 ####[facility] LABCLIA [id number] [place] [address] [place] Basophils/100 WBC (Bld) 0.8 % Normal [facility] Comment on above: Order Comment: Speci men Type: BLOOD SPECIMENOrdering Facility: [facility] Address: [address] [place] [address] Performed By: #### 5 7021-8 ####[facility] LABCLIA [id number] [place] [address] [place] Differential cell count method Nom (Bld) Auto Normal [facility] Comment on above: Order Comment: Speci men Type: BLOOD SPECIMENOrdering Facility: [facility] Address: [address] [place] [address] Performed By: #### 5 7021-8 ####[facility] LABCLIA [id number] [place] [address] [place] Eosinophils (Bld) [#/Vol] 0.26 10*3/uL Normal <0.46 [facility] Comment on above: Order Comment: Speci men Type: BLOOD SPECIMENOrdering Facility: [facility] Address: [address] [place] [address] Performed By: #### 5 7021-8 ####[facility] LABCLIA [id number] [place] [id number] [place] Eosinophils/100 WBC (Bld) 2.8 % Normal [facility] Comment on above: Order Comment: Speci men Type: BLOOD SPECIMENOrdering Facility: [facility] Address: [address] [place] [address] Performed By: #### 5 7021-8 ####[facility] LABCLIA [id number] [address], [place] [address] [place] Erythrocyte distribution width (RBC) [Ratio] 13.3 % Normal 11.5-15.0 [facility] Comment on above: Order Comment: Speci men Type: BLOOD SPECIMENOrdering Facility: [facility] Address: [address] [place] [address] Performed By: #### 5 7021-8 ####[facility] LABCLIA [id number] [address], [place] [address] [place] Hematocrit (Bld) [Volume fraction] 36.0 % Normal 36.0-46.0 [facility] Comment on above: Order Comment: Speci men Type: BLOOD SPECIMENOrdering Facility: [facility] Address: [address] [place] [address] Performed By: #### 5 7021-8 ####[facility] LABCLIA [id number] [address], [facility] [place] Hemoglobin (Bld) [Mass/Vol] 11.8 g/dL Normal 11.5-15.5 [facility] Comment on above: Order Comment: Speci men Type: BLOOD SPECIMENOrdering Facility: [facility] Address: [address] [place] [address] Performed By: #### 5 7021-8 ####[facility] LABCLIA [id number] [address], [facility] [place] Immature granulocytes (Bld) [#/Vol] 0.17 10*3/uL High <0.10 [facility] Comment on above: Order Comment: Speci men Type: BLOOD SPECIMENOrdering Facility: [facility] Address: [address] [place] [address] Performed By: #### 5 7021-8 ####[facility] LABCLIA [id number] [address] [place] Immature granulocytes/100 WBC (Bld) 1.9 % Normal [facility] Comment on above: Order Comment: Speci men Type: BLOOD SPECIMENOrdering Facility: [facility] Address: [address] [place] [address] Performed By: #### 5 7021-8 ####[facility] LABCLIA [id number] [place] [address] [place] Lymphocytes (Bld) [#/Vol] 1.79 10*3/uL Normal 1.00-4.00 [facility] Comment on above: Order Comment: Speci men Type: BLOOD SPECIMENOrdering Facility: [facility] Address: [address] [place] [address] Performed By: #### 5 7021-8 ####[facility]CL[facility] [id number] [place] [address] [place] Lymphocytes/100 WBC (Bld) 19.5 % Normal [facility] Comment on above: Order Comment: Speci men Type: BLOOD SPECIMENOrdering Facility: [facility] Address: [address] [place] [address] Performed By: #### 5 7021-8 ####[facility] LABCLIA [id number] [place] [id number] [place] MCH (RBC) [Entitic mass] 29.7 pg Normal 26.0-34.0 [facility] Comment on above: Order Comment: Speci men Type: BLOOD SPECIMENOrdering Facility: [facility] Address: [address] [place] [address] Performed By: #### 5 7021-8 ####[facility]CL[facility] [id number] [place] [address] [place] MCHC (RBC) [Mass/Vol] 32.8 g/dL Normal 30.5-36.0 [facility] Comment on above: Order Comment: Speci men Type: BLOOD SPECIMENOrdering Facility: [facility] Address: [address] [place] [address] Performed By: #### 5 7021-8 ####[facility] LABIA [id number] [place] [address] [place] MCV (RBC) [Entitic vol] 90.7 fL Normal 80.0-100.0 [facility] Comment on above: Order Comment: Speci men Type: BLOOD SPECIMENOrdering Facility: [facility] Address: [address] [place] [address] Performed By: #### 5 7021-8 ####[facility] [id number] [place] [address] [place] Monocytes (Bld) [#/Vol] 0.84 10*3/uL Normal <0.87 [facility] Comment on above: Order Comment: Speci men Type: BLOOD SPECIMENOrdering Facility: [facility] Address: [address] [place] [address] Performed By: #### 5 7021-8 ####[facility] LABIA [id number] [place] [address] [place] Monocytes/100 WBC (Bld) 9.2 % Normal [facility] Comment on above: Order Comment: Speci men Type: BLOOD SPECIMENOrdering Facility: [facility] [facility] Address: [address] [place] [address] Performed By: #### 5 7021-8 ####[facility] LABCLIA [id number] [place] [address] [place] Neutrophils (Bld) [#/Vol] 6.03 10*3/uL Normal 1.45-7.50 [facility] Comment on above: Order Comment: Speci men Type: BLOOD SPECIMENOrdering Facility: [facility] Address: [address] [place] [address] Performed By: #### 5 7021-8 ####[facility] LABCL[facility] [id number] [place] [id number] [place] Neutrophils/100 WBC (Bld) 65.8 % Normal [facility] Comment on above: Order Comment: Speci men Type: BLOOD SPECIMENOrdering Facility: [facility] Address: [address] [place] [address] Performed By: #### 5 7021-8 ####[facility] LABCL[facility] [id number] [place] [address] [place] Nucleated RBC (Bld) [#/Vol] 10*3/uL Normal <0.01 [facility] Comment on above: Order Comment: Speci men Type: BLOOD SPECIMENOrdering Facility: [facility] Address: [address] [place] [address] Performed By: #### 5 7021-8 ####[facility] LABCL[facility] [id number] [place] [address] [place] Nucleated RBC/100 WBC (Bld) [Ratio] 0.0 /100 WBC Normal [facility] Comment on above: Order Comment: Speci men Type: BLOOD SPECIMENOrdering Facility: [facility] Address: [address] [place] [address] Performed By: #### 5 7021-8 ####[facility] LABCL[facility] [id number] [place] [id number] [place] Platelet mean volume (Bld) [Entitic vol] 11.6 fL Normal 9.0-12.7 [facility] Comment on above: Order Comment: Speci men Type: BLOOD SPECIMENOrdering Facility: [facility] Address: [address] [place] [address] Performed By: #### 5 7021-8 ####[facility]CL[facility] [id number] [address] [address] [place] Platelets (Bld) [#/Vol] 292 10*3/uL Normal 150-400 [facility] Comment on above: Order Comment: Speci men Type: BLOOD SPECIMENOrdering Facility: [facility] Address: [address] [place] [address] Performed By: #### 5 7021-8 ####[facility] LABIA [id number] [place] [address] [place] RBC (Bld) [#/Vol] 3.97 10*6/uL Normal 3.90-5.20 [facility] Comment on above: Order Comment: Speci men Type: BLOOD SPECIMENOrdering Facility: [facility] Address: [address] [place] [address] Performed By: #### 5 7021-8 ####[facility] [id number] [place] [address] [place] WBC (Bld) [#/Vol] 9.16 10*3/uL Normal 3.70-11.00 [facility] Comment on above: Order Comment: Speci men Type: BLOOD SPECIMENOrdering Facility: [facility] Address: [address] [place] [address] Performed By: #### 5 7021-8 ####[facility] LABIA [id number] [place] [id number] [place] Comprehensive metabolic 2000 panelon 12-09-2024 Albumin [Mass/Vol] 3.8 g/dL Low 3.9-4.9 [facility] Comment on above: Order Comment: Speci men Type: BLOOD SPECIMENOrdering Facility: [facility] Address: [address] [place] [address] Performed By: #### 3 016-3, 22294-2, 20725-6 ####[facility] [id number] [place] [id number] [place] ALP [Catalytic activity/Vol] 82 U/L Normal 34-123 [facility] Comment on above: Order Comment: Speci men Type: BLOOD SPECIMENOrdering Facility: [facility] Address: [address] [place] [address] Performed By: #### 3 016-3, 73148-8, 55931-8 ####[facility] [id number] [place] [address] [place] ALT [Catalytic activity/Vol] 8 U/L Normal 7-38 [facility] Comment on above: Order Comment: Speci men Type: BLOOD SPECIMENOrdering Facility: [facility] Address: [address] [place] [address] Performed By: #### 3 016-3, 43907-8, 02478-0 ####[facility] [id number] [place] [address] [place] Anion gap [Moles/Vol] 11 mmol/L Normal 8-15 [facility] Comment on above: Order Comment: Speci men Type: BLOOD SPECIMENOrdering Facility: [facility] Address: [address] [place] [address] Performed By: #### 3 016-3, 54223-5, 83260-0 ####[facility] [id number] [place] [address] [place] AST [Catalytic activity/Vol] 15 U/L Normal 13-35 [facility] Comment on above: Order Comment: Speci men Type: BLOOD SPECIMENOrdering Facility: [facility] Address: [address] [place] [address] Performed By: #### 3 016-3, 55507-0, 89861-1 ####[facility]CL[facility] [id number] [address] [address] [place] Bilirubin [Mass/Vol] 1.1 mg/dL Normal 0.2-1.3 [facility] Comment on above: Order Comment: Speci men Type: BLOOD SPECIMENOrdering Facility: [facility] Address: [address] [place] [address] Performed By: #### 3 016-3, , ####[facility] [id number] [address] [address] [place] Calcium [Mass/Vol] 9.6 mg/dL Normal 8.5-10.2 [facility] Comment on above: Order Comment: Speci men Type: BLOOD SPECIMENOrdering Facility: [facility] Address: [address] [place] [address] Performed By: #### 3 016-3, , ####[facility]CL[facility] [id number] [place] [address] [place] Chloride [Moles/Vol] 102 mmol/L Normal 98-107 [facility] Comment on above: Order Comment: Speci men Type: BLOOD SPECIMENOrdering Facility: [facility] Address: [address] [place] [address] Performed By: #### 3 016-3, , ####[facility] [id number] [place] [id number] [place] CO2 [Moles/Vol] 21 mmol/L Low 22-30 [facility] Comment on above: Order Comment: Speci men Type: BLOOD SPECIMENOrdering Facility: [facility] Address: [address] [place] [address] Performed By: #### 3 016-3, , ####[facility] [id number] [address] [address] [place] Creatinine [Mass/Vol] 1.03 mg/dL High 0.58-0.96 [facility] Comment on above: Order Comment: Speci men Type: BLOOD SPECIMENOrdering Facility: [facility] Address: [address] [place] [address] Performed By: #### 3 016-3, 58664-3, 86411-8 ####[facility] LABIA [id number] [place] [address] [place] eGFRcr SerPlBld CKD-EPI 2020 54 mL/min/1.73m??? Low >=60 [facility] Comment on above: Order Comment: Tessa men Type: BLOOD SPECIMENOrdering Facility: [facility] Address: [address] [place] [address] Result Comment: Lilo mated Glomerular Filtration Rate [...] actual GFR. Performed By: #### 3 016-3, 33820-1, 21864-2 ####[facility] [id number] [place] [id number] [place] Glucose [Mass/Vol] 97 mg/dL Normal 74-99 [facility] Comment on above: Order Comment: Tessa kamara Type: BLOOD SPECIMENOrdering Facility: [facility] Address: [address] [place] [address] Result Comment: The [place] Diabetes Association (ADA) provides guidance for cutoff [...] Standards of Medical Care in Diabetes 2016, [place] [employer]. Diabetes Care. 2016.39(Suppl 1). Performed By: #### 3 016-3, 86194-0, 94421-4 ####[facility] [id number] [address] [address] [place] Potassium [Moles/Vol] 4.6 mmol/L Normal 3.7-5.1 [facility] Comment on above: Order Comment: Speci men Type: BLOOD SPECIMENOrdering Facility: [facility] Address: [address] [place] [address] Performed By: #### 3 016-3, 87376-5, 29880-5 ####[facility]CL[facility] [id number] [place] [address] [place] Protein [Mass/Vol] 6.9 g/dL Normal 6.3-8.0 [facility] Comment on above: Order Comment: Speci men Type: BLOOD SPECIMENOrdering Facility: [facility] Address: [address] [place] [address] Performed By: #### 3 016-3, 86713-8, 87228-2 ####[facility] LABIA [id number] [place] [id number] [place] Sodium [Moles/Vol] 134 mmol/L Low 136-144 [facility] Comment on above: Order Comment: Speci men Type: BLOOD SPECIMENOrdering Facility: [facility] Address: [address] [place] [address] Performed By: #### 3 016-3, 57888-8, 16653-9 ####[facility] LABIA [id number] [address] [address] [place] Urea nitrogen [Mass/Vol] 15 mg/dL Normal 7-21 [facility] Comment on above: Order Comment: Speci men Type: BLOOD SPECIMENOrdering Facility: [facility] Address: [address] [place], [place] [address] Performed By: #### 3 016-3, 47764-1, 75510-9 ####[facility] LABCL[facility] [id number] [address] [address] [place] [facility] [place] Lipid 1996 panelon 5 Cholesterol [Mass/Vol] 149 mg/dL Normal <200 [facility] Comment on above: Order Comment: Speci men Type: BLOOD SPECIMENOrdering Facility: [facility] Address: [address] [place] [address] Result Comment: <200 mg/dL, Desirable 200-239 mg/dL, Borderline high >239 mg/dL, High Performed By: #### 3 016-3, , ####[facility] [id number] [address] [place] Cholesterol in HDL [Mass/Vol] 47 mg/dL Normal >39 [facility] Comment on above: Order Comment: Speci men Type: BLOOD SPECIMENOrdering Facility: [facility] Address: [address] [place] [address] Result Comment: 40-5 9 mg/dL, Acceptable >59 mg/dL, High: Negative risk factor for coronary heart disease <40 mg/dL, Low: Positive risk factor for coronary heart disease Performed By: #### 3 016-3, , ####[facility]CL[facility] [id number] [address] OF [facility] Cholesterol in LDL [Mass/Vol] 81 mg/dL Normal <100 [facility] Comment on above: Order Comment: Speci men Type: BLOOD SPECIMENOrdering Facility: [facility] Address: [address] [place] [address] Result Comment: <100 mg/dL, Optimal 100-129 mg/dL, Near optimal/above optimal 130-159 mg/dL, Borderline high 160-189 mg/dL, High >189 mg/dL, Very high Secondary prevention optimal LDL Cholesterol levels are recommended to be <70 mg/dL LDL cholesterol is calculated using the Good-NIH equation. Performed By: #### 3 016-3, 13910-8, 71017-9 ####[facility] LABCL[facility] [id number] [place] [id number] [place] Cholesterol in LDL/Cholesterol in HDL [Mass ratio] 1.72 {ratio} Normal <2.54 [facility] Comment on above: Order Comment: Speci men Type: BLOOD SPECIMENOrdering Facility: [facility] Address: [address] [place] [address] Result Comment: Refe rence: 1. National Cholesterol Education Program ATP III Guideline At-A-Glance Quick Desk Reference: National Heart, Lung, and Blood [place]. National Institutes of Health. 2001: NIH Publication No. 01-3305. 2. An International Atherosclerosis Society position paper: global recommendations for the management of dyslipidemia: executive summary, Atherosclerosis. 2014: 232(2):410-413. Performed By: #### 3 016-3, 68962-6, ####[facility]CL[facility] [id number] [place] [address] [place] Cholesterol in VLDL [Mass/Vol] 18 mg/dL Normal <30 [facility] Comment on above: Order Comment: Speci men Type: BLOOD SPECIMENOrdering Facility: [facility] Address: [address] [place] [address] Performed By: #### 3 016-3, 12071-8, ####[facility] LABCL[facility] [id number] [place] [id number] [place] Cholesterol non HDL [Mass/Vol] 102 mg/dL Normal <130 [facility] Comment on above: Order Comment: Speci men Type: BLOOD SPECIMENOrdering Facility: [facility] Address: [address] [place] [address] Result Comment: <130 mg/dL, Optimal 130-159 mg/dL, Near optimal/above optimal 160-189 mg/dL, Borderline high 190-219 mg/dL, High >219 mg/dL, Very high Secondary prevention optimal non HDL Cholesterol levels are recommended to be <100 mg/dL Performed By: #### 3 016-3, 00009-6, ####[facility] LABIA [id number] [address] [address] [place] Cholesterol.total/Ch olesterol in HDL [Mass ratio] 3.17 {ratio} Normal <5.10 [facility] Comment on above: Order Comment: Speci men Type: BLOOD SPECIMENOrdering Facility: [facility] Address: [address] [place] [address] Performed By: #### 3 016-3, , ####[facility] [id number] [place] [address] [place] FASTING TIME 12 hrs Normal [facility] Comment on above: Order Comment: Speci men Type: BLOOD SPECIMENOrdering Facility: [facility] Address: [address] [place] [address] Performed By: #### 3 016-3, , ####[facility] LABIA [id number] [address], [place] [address] [place] Triglyceride [Mass/Vol] 119 mg/dL Normal <150 [facility] Comment on above: Order Comment: Speci men Type: BLOOD SPECIMENOrdering Facility: [facility] Address: [address] [place] [address] Result Comment: <150 mg/dL, Normal 150-199 mg/dL, Borderline high 200-499 mg/dL, High >499 mg/dL, Very high Performed By: #### 3 016-3, 20094-0, ####[facility] LABIA [id number] [place] [id number] [place] TSH SerPl-aCncon 12-09-2024 TSH Qn 5.210 m[IU]/L High 0.270-4.200 [facility] Comment on above: Order Comment: Speci men Type: BLOOD SPECIMENOrdering Facility: [facility] Address: [address] [place] [address] Performed By: #### 3 016-3, 52198-4, 57045-3 ####[facility] MELODY [id number] THEA [place]AD[place]ER [place] [id number] [facility] CNOVon 12-02-2024 CNOV Office Visit (FAMPWS ) TRICIA GRANADOS ([id number]) 1940 F Date Time Provider Department 12/02/24 8:40 AM ROSALINO CARMONA FAMPWS During your visit today, we recorded the following information about you: Pulse Blood pressure Weight 47/minute 110/60 85.5 kg Rosalino Carmona MD 12/02/2024 8:54 AM Signed - Start amoxicillin (mid-range dose) for 7 days for your sinus infection; prescription sent to [facility] in [place]. - Refill your amlodipine, hydralazine, and metoprolol [...] good dent (more content not included)... Normal [facility] CNOVon 09-21-2024 CNOV Office Visit (MARISOL ) TRICIA GRANADOS ([id number]) 1940 F Date Time Provider Department 09/21/24 [...] these instructions. Informed Consent Consent Obtained: Verbal Wadsworth Protocol A moment to CARE was completed. [...] [M17.0] Order(s):Large Joint Arthro/Inj: bilateral knee joints [EYI289] Order #: [id number] [] betamethasone acetate-betamethasone sodium phosphate 6 mg [...] INJECT* 09/21/2024 (more content not included)... Normal [facility] Large Joint Arthro/Inj: bila teral knee [...] these instructions. Informed Consent Consent Obtained: Verbal Wadsworth Protocol A moment to CARE was completed. [...] the bedside nurse for hospitalized patients) applicable. [facility] Cardiology Visit Reporton Cardiology Visit Report [facility] [address] [place] [address] OFFICE VISIT Date of Service: 07/10/24 MR#: [id number] Acct: [id number] Name: TRICIA GRANADOS Rep #: [id number] : 1940 Provider: SAMANTHA Pendleton Age/Sex: 83/F Location: [facility] Status: Signed HPI HPI History of [...] (%) 99 Intake Visit Reasons: 4 M Health Care Recruiter Required: No Is patient in pain?: No [...] x3 an (more content not included)... Normal [facility] CNOVon 06-08-2024 CNOV Office Visit (ORTHWS ) TRICIA GRANADOS ([id number]) 1940 F Date Time Provider Department 06/08/24 [...] knee joints Informed Consent Consent Obtained: Verbal Wadsworth Protocol A moment to CARE was completed. [...] [M17.0] Order(s):Large Joint Arthro/Inj: bilateral knee joints [OLP350] Order #: [id number] [] betamethasone acetate-betamethasone sodium phosphate 6 mg [...] by BREANNA CANSECO on 06/08/24 [facility] Large Joint Arthro/Inj: bila teral knee jointson 06-08-2024 Breanna Canseco PA -C 06/08/2024 8:32 AM Large Joint Arthro/Inj: bilateral knee joints Informed Consent Consent Obtained: Verbal Wadsworth Protocol A moment to CARE was completed. [...] Plan of Care Visit completed when applicable [facility] CNOVon 05-26-2024 CNOV Office Visit (FAMPWS ) TRICIA GRANADOS ([id number]) 1940 F Date Time Provider Department 05/26/24 8:00 AM [facility] During your visit today, we recorded the following information about you: Pulse Blood pressure Weight Height 75/minute 130/58 88.5 kg 1.676 m Orquidae Robertson, SCREEN PRINTING STENCIL PREPARER.MEDICAL REVIEW SPECIALIST 05/26/2024 9:04 AM Addendum This is [...] 157/69 Pulse 75 Ht 167.6 cm (5' 6) Wt 88.5 kg (195 lb) BMI 31.47 [...] Date Reviewed: (more content not included)... Normal [facility] Ovi 05-05-2024 JANAE Telephone ([place]) TRICIA GRANADOS ([id number]) 1940 F Date Time Provider Department 05/05/24 [facility] During your visit today, we recorded the following information about you: Gregoria Anderson, RN 05/05/2024 4:33 PM Signed Pt called in and reports she started 2 new heart medications in February Amlodipine and Hydralazine, and she increased her Metoprolol. She said the Grip Wrapper discontinued her Diltiazem. She though maybe these medication had given her diarrhea, but her Grip Wrapper didn't think so and told her to [...] for Visit: Patient Update [1234] Patient Question [6867] Prescriptions as of 05/05/2024 - amLODIPine (NORVASC) [...] by CINDY AGUIAR on 05/05/24 [facility] CNOVon 04-28-2024 CNOV Office Visit (FAMPWS ) TRICIA GRANADOS ([id number]) 1940 F Date Time Provider Department 04/28/24 2:40 PM [facility] During your visit today, we recorded [...] done Influenza Vaccine(1) due on 12/22/2023 Covid-19 Vaccine(2023-25 season) due on 12/22/2023 Advance Directive Discussion- daughter is her surrogate. VITALS: BP 166/60 Pulse 65 Ht 167.6 cm (5' 6) Wt 89.8 kg (198 lb) SpO2 99% [...] or questio (more content not included)... Normal [facility]RA[facility] ([id number]) 1940 F Date Time Provider Department 04/28/24 ROSALINO CARMONA During your visit today, we recorded the following information about you: Britney Rolon RN 04/28/2024 5:06 PM Signed Pt reports she [...] by GREGORIA ANDERSON on 04/29/24 [facility] BI MAMMO BILATERAL SCREENING TOMOSYNTHESISon 04-10-2024 BI MAMMO BILATERAL SCREENING TOMOSYNTHESIS Interpreted By: Renard Allen, STUDY: BI MAMMO BILATERAL SCREENING TOMOSYNTHESIS; 04/10/2024 8:47 am ACCESSION NUMBER(S): [id number] ORDERING CLINICIAN: ROSALINO CARMONA INDICATION: Screening. ,Z12.31 [...] any future breast imaging appointments, please call [phone] ([phone]). MACRO: None Signed by: Renard Allen 04/10/2024 9:21 AM Dictation workstation: [id number] [facility] Ovi [facility]-10-20[facility] TRICIA GRANADOS ([id number]) 1940 F Date Time Provider Department 04/10/24 ROSALINO CARMONA [facility] During your visit today, we recorded the following information about you: Harmeet Carmona LPN 04/10/2024 10:40 AM Signed See mammo results: Scan on 04/10/2024 9:25 AM by Provider, ILEANA ArmendarizC: Mammography Rosalino Carmona MD 04/10/2024 10:58 AM Signed mammogram Allergies As of Date: 04/10/2024 Noted Allergy Reaction CAFFEINE 02/16/2014 5 - Intolerance Date Reviewed: 01/24/2024 Reviewed by: Orquidea Robertson APRN.[facility] - Fully Assessed Reason for Visit: [...] Status:Closed by ROSALINO CARMONA on 04/10/24 Normal [facility] DBT Breast - bilateralon No mammographic evidence of malignancy. BI-RADS CATEGORY: BI-RADS Category: 2 Benign. Recommendation: Annual Screening. Recommended Date: 1 Year. Laterality: Bilateral. For any future breast imaging appointments, please call [phone] ([phone]). MACRO: None Signed by: Renard Allen 04/10/2024 9:21 AM Dictation workstation: [id number] [facility] Interpreted By: Renard Allen, STUDY: BI MAMMO BILATERAL SCREENING TOMOSYNTHESIS; 04/10/2024 8:47 am ACCESSION NUMBER(S): [id number] ORDERING CLINICIAN: ROSALINO CARMONA INDICATION: Screening. ,Z12. Encounter for screening mammogram for malignant neoplasm of breast COMPARISON: 04/03/2022, 04/04/2023 FINDINGS: 2D and tomosynthesis images were reviewed at 1 mm slice thickness. Density: The breasts are almost entirely fatty. No suspicious masses or calcifications are identified. Dystrophic calcifications are present in both breasts. CAD was utilized. [facility] Renard Allen MD - 04/10/2024 Interpreted By: Renard Allen, STUDY: BI MAMMO BILATERAL SCREENING TOMOSYNTHESIS; 04/10/2024 8:47 am ACCESSION NUMBER(S): [id number] ORDERING CLINICIAN: ROSALINO CARMONA INDICATION: Screening. ,Z12.31 [...] any future breast imaging appointments, please call [phone] ([phone]). MACRO: None Signed by: Renard Allen 04/10/2024 9:21 AM Dictation workstation: [id number] [facility] Work Phone: Radiology Study observation (narrative) [facility] Work Phone: DBT Breast - bilateralOrdere d By: Renard Allen on 04-10-2024 [facility] Work Phone: Ovi [facility] TRICIA GRANADOS ([id number]) 1940 F Date Time Provider Department 03/25/24 ROSALINO CARMONA [facility] During your visit today, we recorded the following information about you: Juliann Caban LPN 03/25/2024 1:19 PM Signed Patient calling she received her reminder to get mamm order. She does at [facility] in [place]. Last year was done on 04/09/2023. She wants a 3 D mamm faxed to [phone]. Pending order. Please advise Harmeet Carmona LPN 03/26/2024 4:34 PM Signed Order faxed to as requested. Sent via [employer]. Patient notified. Allergies As of Date: 03/25/2024 Noted Allergy Reaction CAFFEINE 02/16/2014 5 - Intolerance Date Reviewed: 01/24/2024 Reviewed by: Orquidea Robertson APRN.MEDICAL REVIEW SPECIALIST - Fully Assessed Reason for Visit: Orders [681] Primary Visit Diagnosis:Screening mammogram for breast cancer [Z12.31] Order(s):[facility] SCREENING Drew MALDONADO [[id number]] Order #: [id number] FUTURE Prescriptions as of 03/26/2024 - hydrOXYzine [...] Encounter Status:Closed by HARMEET CARMONA on 03/26/24 Normal [facility] Cardiology Visit Reporton Cardiology Visit Report [facility] [address] [place] [address] OFFICE VISIT Date of Service: 03/10/24 MR#: [id number] Acct: [id number] Name: TRICIA GRANADOS Rep #: [id number] : 1940 Provider: SAMANTHA Pendleton Age/Sex: 83/F Location: [facility] Status: Signed HPI HPI History of [...] Monitor Intake Visit Reasons: 1 Y FU Health Care Recruiter Required: No Is patient in pain?: No [...] Note: patient refused to have vitals taken [facility] Medical History (Updated 03/10/24 @ 14:19 by Demetrice SINGH, PA) Paroxysmal A-fib Chronic anticoagulation Longstanding persistent atrial [...] present Michael (more content not included)... Normal [facility] CNOVon 03-02-2024 CNOV Office Visit (ORTHWS ) DARWINTRICIA ([id number]) 1940 F Date Time Provider Department 03/02/24 [...] knee joints Informed Consent Consent Obtained: Verbal Wadsworth Protocol A moment to CARE was completed. [...] Visit completed when applicable Referring Provider: BREANNA CANESCO [[id number]] Allergies As of Date: 03/02/2024 Noted Allergy Reaction CAFFEINE 02/16/2014 5 - Intolerance Date Reviewed: 01/24/2024 Reviewed by: Orquidea Robertson APRN.MEDICAL REVIEW SPECIALIST - Fully Assessed Primary Visit Diagnosis:Primary osteoarthritis of both knees [M17.0] Order(s):Large Joint Arthro/Inj: bilateral knee joints [OCA114] Order #: [id number] [] betamethasone acetate-betamethasone sodium phosphate 6 mg [...] by BREANNA CANSECO on 03/02/24 [facility] Large Joint Arthro/Inj: bila teral knee jointson 03-02-2024 Breanna Canseco PA -C 03/02/2024 9:26 AM Large Joint Arthro/Inj: bilateral knee joints Informed Consent Consent Obtained: Verbal Wadsworth Protocol A moment to CARE was completed. [...] Plan of Care Visit completed when applicable [facility] XR KNEE 4V AP/PA/LAT/MERCH B ILon 12-26-2023 [...] the knees. Mild degenerative change, as described. Html Web Developer: SKYLER Transcribe Date/Time: Dec 26 2023 1:07P Dictated by : VAMSI NGUYEN MD This examination was interpreted and the report reviewed and electronically signed by: VAMSI NGUYEN MD on Dec 26 2023 1:17PM EST [id number] [facility] XR Knee - bilateral 4 Viewso n 12-26-2023 IMPRESSION: No acute fracture or dislocation of the knees. Mild degenerative change, as described. Html Web Developer: SKYLER Transcribe Date/Time: Dec 26 2023 1:07P Dictated by : VAMSI NGUYEN MD This examination was interpreted and the report reviewed and electronically signed by: VAMSI NGUYEN MD on Dec 26 2023 1:17PM EST [facility] * * *Final Report* * * DATE OF EXAM: Dec 26 2023 8:15AM MDEmily [id number] - XR KNEE 4V AP/PA/LAT/MERCH OSBALDO [...] superior pole patella. No radiopaque foreign body. [facility], [facility] - 12/26/2023 * * *Final Report* * [...] the knees. Mild degenerative change, as described. Html Web Developer: PSCB Transcribe Date/Time: Dec 26 2023 1:07P Dictated by : VAMSI NGUYEN MD This examination was interpreted and the report reviewed and electronically signed by: VAMSI NGUYEN MD on Dec 26 2023 1:17PM EST [facility] Radiology Study observation (narrative) [facility] XR Knee - bilateral 4 ViewsO rdered By: Ccf Provider on 12-26-2023 [facility] Large Joint Arthro/Inj: bishnu gregory knee jointson 11-25-2023 Breanna Canseco PA -C 11/25/2023 8:39 AM Large Joint Arthro/Inj: bilateral knee joints Informed Consent Consent Obtained: Verbal Wadsworth Protocol A moment to CARE was completed. [...] instruments, equipment or retained foreign bodies applicable. [facility] Large Joint Arthro/Inj: bishnu gregory knee jointson 08-19-2023 Breanna Canseco PA -C 08/19/2023 10:12 AM Large Joint Arthro/Inj: bilateral knee joints Informed Consent Consent Obtained: Verbal Wadsworth Protocol A moment to CARE was completed. [...] instruments, equipment or retained foreign bodies applicable. [facility] DIGITAL MAMM SCREENING W/ TO [facility] 04-03-2022 DIGITAL MAMM SCREENING W/ JOEL Patient Name: TRICIA GRANADOS STUDY: DIGITAL MAMM SCREENING W/ JOEL; 04/03/2022 9:15 am ACCESSION NUMBER(S): [id number] ORDERING CLINICIAN: ROSALINO CARMONA INDICATION: Screening. COMPARISON: [...] any future breast imaging appointments, please call [phone] ([phone]). Electronically signed by: RENARD ALLEN MD [facility] No Panel Informationon 12-18 [facility] XR Knee - bilateral 4 Viewso n 10-15-2021 IMPRESSION: Stable degenerative changes as detailed in report. Html Web Developer: PSCB Transcribe Date/Time: Oct 15 2021 9:25A [...] * * EXAMINATION: XR KNEE 4V AP/PA/LAT/MERCH SOBALDO HISTORY: Chronic and diffuse bilateral knee pain [...] are unremarkable. [id number] E_DIVISION OF RADIOLOGY Provider, [facility] - 10/15/2021 * * *Final Report* * [...] Stable degenerative changes as detailed in report. Html Web Developer: PSCB Transcribe Date/Time: Oct 15 2021 9:25A Dictated by : JULIANN LEON MD This examination was interpreted and the report reviewed and electronically signed by: JULIANN LEON MD on Oct 15 2021 9:30AM EST [facility] XR Knee - bilateral 4 ViewsO rdered By: Ccf Provider on 10-15-2021 [facility] XR Knee - bilateral 4 Viewso n 10-14-2021 Radiology Study observation (narrative) [facility] MA Mamm Screen w/CAD if perf ormed bilaton 01-01-2019 MA Mamm Screen w/CAD if performed bilat Exam Date/Time: 01/01/2019 08:26 EDT Reason for Exam: SCREENING Report STUDY: Digital mammography screening; 01/01/2019 8:26 am ACCESSION NUMBER(S): [id number] ORDERING CLINICIAN: Rosalino Carmona INDICATION: Screening. 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 01-20-2016 Left ventricular Ejection fraction 65 % Invalid Interpretation Code [facility] Work Phone: [phone] Clinical Lists Update: 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 05-20-2015 Alanine aminotransferase (ALT) 18 U/L Invalid Interpretation Code [facility] Work Phone: [phone] Albumin 4.3 g/dL Invalid Interpretation Code [facility] Work Phone: [phone] Alkaline phosphatase (ALP) 85 U/L Invalid Interpretation Code [facility] Work Phone: [phone] Aspartate aminotransferase (AST) 19 U/L Invalid Interpretation Code [facility] Work Phone: [phone] Bilirubin (total) 0.5 mg/dL Invalid Interpretation Code [facility] Work Phone: [phone] BUN/Creatinine Ratio 17.0 mg/mg Invalid Interpretation Code [facility] Work Phone: [phone] Calcium 9.4 mg/dL Invalid Interpretation Code [facility] Work Phone: [phone] Chloride 107 mmol/L Invalid Interpretation Code [facility] Work Phone: [phone] Cholesterol 190 mg/dL Invalid Interpretation Code [facility] Work Phone: [phone] Cholesterol to HDL Ratio 4 {ratio} Invalid Interpretation Code [facility] Work Phone: [phone] CO2 27.2 mmol/L Invalid Interpretation Code [facility] Work Phone: [phone] Creatinine 1.0 mg/dL Invalid Interpretation Code [facility] Work Phone: [phone] Erythrocyte distribution width Auto Ratio (RBC) 13.1 % Invalid Interpretation Code [facility] Work Phone: [phone] Erythrocytes (RBC) 4.37 10*6/uL Invalid Interpretation Code [facility] Work Phone: [phone] Globulin 3.3 g/dL Invalid Interpretation Code [facility] Work Phone: [phone] Glucose mass conc 103 mg/dL High [facility] Work Phone: [phone] HDL Cholesterol 52 mg/dL Invalid Interpretation Code [facility] Work Phone: [phone] Hematocrit (HCT) 40.8 % Invalid Interpretation Code [facility] Work Phone: [phone] Hemoglobin mass conc (Bld) 13.6 g/dL Invalid Interpretation Code [facility] Work Phone: [phone] LDL Cholesterol 99 mg/dL Invalid Interpretation Code [facility] Work Phone: [phone] MCH 31.2 pg High [facility] Work Phone: [phone] MCHC mass conc (RBC) 33.4 g/dL Invalid Interpretation Code [facility] Work Phone: [phone] MCV 93.4 fL Invalid Interpretation Code [facility] Work Phone: [phone] Platelets 238 10*3/mm3 Invalid Interpretation Code [facility] Work Phone: [phone] PMV by Khushi 10.6 fL Invalid Interpretation Code [facility] Work Phone: [phone] Potassium molar conc 4.4 mmol/L Invalid Interpretation Code [facility] Work Phone: [phone] Protein 7.6 g/dL Invalid Interpretation Code [facility] Work Phone: [phone] Sodium 140 mmol/L Invalid Interpretation Code [facility] Work Phone: [phone] Triglyceride 195 mg/dL High [facility] Work Phone: [phone] Urea nitrogen 17 mg/dL Invalid Interpretation Code [facility] Work Phone: [phone] very low density lipoproteins 39 mg/dL Invalid Interpretation Code [facility] Work Phone: [phone] WBC (Leukocytes) 9.1 10*3/uL Invalid Interpretation Code [facility] Work Phone: [phone] Office Visiton 02-15-2015 cardiac risk group B Invalid Interpretation Code [facility] Work Phone: [phone] General cardiovascular disease 10Y risk [#] [place].Argenis'Mendez rae 15 % Invalid Interpretation Code [facility] Work Phone: [phone] Lab Report: Drawn @ [facility] 04-10-2013 MCHC mass conc (RBC) 34.1 % Invalid Interpretation Code [facility] Work Phone: [phone] Lab Report: Ordered by Dr. 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 Rosalino Carmona MD Work Phone: [phone] [place] [address] 01-08-2025 10:09-0400 Diastolic blood pressure 50 mm[Hg] Dr. Rosalino Carmona MD Work Phone: [phone] [place] [address] 01-08-2025 10:09-0400 Systolic blood pressure 136 mm[Hg] Dr. Rosalino Carmona MD Work Phone: [phone] [place] [address] 01-08-2025 10:06-0400 Body mass index (BMI) [Ratio] 29.8 kg/m2 Dr. Rosalino Carmona MD Work Phone: [phone] [place] [address] 01-08-2025 10:06-0400 Body weight 83.[address] Rosalino Carmona MD Work Phone: [phone] [place] [address] 01-08-2025 10:06-0400 Heart rate 62 /min Dr. Rosalino Carmona MD Work Phone: [facility] 01-08-2025 10:06-0400 Respiratory rate 18 /min Dr. Rosalino Carmona MD Work Phone: [facility] 01-08-2025 10:06-0400 SaO2% (BldA) [Mass fraction] 97 % Dr. Rosalino Carmona MD Work Phone: [facility] 12-02-2024 08:24-0400 Body mass index (BMI) [Ratio] 30.41 kg/m2 Rosalino Carmona MD Work Phone: [facility] 12-02-2024 08:24-0400 Body weight 85.46 kg Rosalino Carmona MD Work Phone: [facility] 12-02-2024 08:24-0400 Diastolic blood pressure 60 mm[Hg] Rosalino Carmona MD Work Phone: [facility] 12-02-2024 08:24-0400 Heart rate 47 /min Rosalino Carmona MD Work Phone: [facility] 12-02-2024 08:24-0400 SaO2% (BldA) [Mass fraction] 97 % Rosalino Carmona MD Work Phone: [facility] 12-02-2024 08:24-0400 Systolic blood pressure 110 mm[Hg] Rosalino Carmona MD Work Phone: [facility] 05-26-2024 08:23-0500 Diastolic blood pressure 58 mm[Hg] Orquidea Suppan SCREEN PRINTING STENCIL PREPARER.MEDICAL REVIEW SPECIALIST Work Phone: [facility] 05-26-2024 08:23-0500 Systolic blood pressure 130 mm[Hg] Orquidea Suppan SCREEN PRINTING STENCIL PREPARER.MEDICAL REVIEW SPECIALIST Work Phone: [facility] 05-26-2024 07:59-0500 Body height 167.6 cm Orquidea Suppan SCREEN PRINTING STENCIL PREPARER.MEDICAL REVIEW SPECIALIST Work Phone: [facility] 05-26-2024 07:59-0500 Body mass index (BMI) [Ratio] 31.47 kg/m2 Orquidea Suppan SCREEN PRINTING STENCIL PREPARER.MEDICAL REVIEW SPECIALIST Work Phone: [facility] 05-26-2024 07:59-0500 Body weight 88.45 kg Orquidea Suppan SCREEN PRINTING STENCIL PREPARER.MEDICAL REVIEW SPECIALIST Work Phone: [facility] 05-26-2024 07:59-0500 Heart rate 75 /min Orquidea Suppan SCREEN PRINTING STENCIL PREPARER.MEDICAL REVIEW SPECIALIST Work Phone: [facility] 04-28-2024 14:34-0500 Body height 167.6 cm Rosalino Carmona MD Work Phone: [facility] 04-28-2024 14:34-0500 Body mass index (BMI) [Ratio] 31.96 kg/m2 Rosalino Carmona MD Work Phone: [facility] 04-28-2024 14:34-0500 Body weight 89.81 kg Rosalino Carmona MD Work Phone: [facility] 04-28-2024 14:34-0500 Diastolic blood pressure 60 mm[Hg] Rosalino Carmona MD Work Phone: [facility] 04-28-2024 14:34-0500 Heart rate 65 /min Rosalino Carmona MD Work Phone: [facility] 04-28-2024 14:34-0500 SaO2% (BldA) [Mass fraction] 99 % Rosalino Carmona MD Work Phone: [facility] 04-28-2024 14:34-0500 Systolic blood pressure 166 mm[Hg] Rosalino Carmona MD Work Phone: [facility] 04-10-2024 08:48-0500 Body height 167.6 cm [facility] 04-10-2024 08:48-0500 Body mass index (BMI) [Ratio] 30.99 kg/m2 [facility] 04-10-2024 08:48-0500 Body weight 87.09 kg [facility] 01-24-2024 07:50-0400 Diastolic blood pressure 56 mm[Hg] Orquidea Suppan SCREEN PRINTING STENCIL PREPARER.MEDICAL REVIEW SPECIALIST Work Phone: [facility] 01-24-2024 07:50-0400 Heart rate 74 /min Orquidea Suppan SCREEN PRINTING STENCIL PREPARER.MEDICAL REVIEW SPECIALIST Work Phone: [facility] 01-24-2024 07:50-0400 Respiratory rate 16 /min Orquidea Suppan SCREEN PRINTING STENCIL PREPARER.MEDICAL REVIEW SPECIALIST Work Phone: [facility] 01-24-2024 07:50-0400 SaO2% (BldA) [Mass fraction] 97 % Orquidea Suppan SCREEN PRINTING STENCIL PREPARER.MEDICAL REVIEW SPECIALIST Work Phone: [facility] 01-24-2024 07:50-0400 Systolic blood pressure 170 mm[Hg] Orquidea Suppan SCREEN PRINTING STENCIL PREPARER.MEDICAL REVIEW SPECIALIST Work Phone: [facility] 12-27-2023 09:43-0400 Diastolic blood pressure 68 mm[Hg] Orquidea Suppan SCREEN PRINTING STENCIL PREPARER.MEDICAL REVIEW SPECIALIST Work Phone: [facility] 12-27-2023 09:43-0400 Systolic blood pressure 146 mm[Hg] Orquidea Suppan SCREEN PRINTING STENCIL PREPARER.MEDICAL REVIEW SPECIALIST Work Phone: [facility] 12-27-2023 09:39-0400 Body mass index (BMI) [Ratio] 34.22 kg/m2 Orquidea Suppan SCREEN PRINTING STENCIL PREPARER.MEDICAL REVIEW SPECIALIST Work Phone: [facility] 12-27-2023 09:39-0400 Body weight 96.16 kg Orquidea Suppan SCREEN PRINTING STENCIL PREPARER.MEDICAL REVIEW SPECIALIST Work Phone: [facility] 12-27-2023 09:39-0400 Heart rate 65 /min Orquidea Suppan SCREEN PRINTING STENCIL PREPARER.MEDICAL REVIEW SPECIALIST Work Phone: [facility] 12-27-2023 09:39-0400 SaO2% (BldA) [Mass fraction] 98 % Orquidea Suppan SCREEN PRINTING STENCIL PREPARER.MEDICAL REVIEW SPECIALIST Work Phone: [facility] 10-18-2022 08:55-0400 Diastolic blood pressure 80 mm[Hg] Rosalino Carmona MD Work Phone: [facility] 10-18-2022 08:55-0400 Systolic blood pressure 136 mm[Hg] Rosalino Carmona MD Work Phone: [facility] 10-18-2022 08:34-0400 Body weight 93.89 kg Rosalino Carmona MD Work Phone: [facility] 10-18-2022 08:34-0400 Heart rate 60 /min Rosalino Carmona MD Work Phone: [facility] 10-18-2022 08:34-0400 SaO2% (BldA) [Mass fraction] 98 % Rosalino Carmona MD Work Phone: [facility] 04-18-2022 10:56-0500 Diastolic blood pressure 100 mm[Hg] Rosalino Carmona MD Work Phone: [facility] 04-18-2022 10:56-0500 Systolic blood pressure 180 mm[Hg] Rosalino Carmona MD Work Phone: [facility] 04-18-2022 10:22-0500 Body temperature 98.01 [degF] Rosalino Carmona MD Work Phone: [facility] 04-18-2022 10:22-0500 Body weight 95.53 kg Rosalino Carmona MD Work Phone: [facility] 04-18-2022 10:22-0500 Heart rate 71 /min Rosalino Carmona MD Work Phone: [facility] 04-18-2022 10:22-0500 Respiratory rate 16 /min Rosalino Carmona MD Work Phone: [facility] 10-14-2021 08:13-0400 Body weight 95.25 kg Rosalino Carmona MD Work Phone: [facility] 10-14-2021 08:13-0400 Diastolic blood pressure 90 mm[Hg] Rosalino Carmona MD Work Phone: [facility] 10-14-2021 08:13-0400 Heart rate 62 /min Rosalino Carmona MD Work Phone: [facility] 10-14-2021 08:13-0400 Respiratory rate 16 /min Rosalino Carmona MD Work Phone: [facility] 10-14-2021 08:13-0400 SaO2% (BldA) [Mass fraction] 97 % Rosalino Carmona MD Work Phone: [facility] 10-14-2021 08:13-0400 Systolic blood pressure 160 mm[Hg] Rosalino Carmona MD Work Phone: [facility] 02-05-2017 09:45-0400 BMI (Body Mass Index) 31.01 [...] Facility Start: 02-11-2025 End: 02-11-2025 [facility] Start: 01-08-2025 End: 01-08-2025 Patient encounter procedure Demetrice SINGH -[facility] Work Phone: Start: 01-08-2025 End: 01-08-2025 ambulatory Rosalino Carmona Facility:[facility] Start: 01-05-2025 End: 01-05-2025 [facility] Start: 12-28-2024 End: 12-28-2024 Patient encounter procedure Breanna Canseco PA-C Work Phone: Orthopaedics Comment on above: Primary osteoarthrit is of both knees (Primary Dx) Start: 12-28-2024 End: 12-28-2024 ambulatory BREANNA CANSECO Facility:[facility] Start: 12-22-2024 End: 12-22-2024 Follow-up encounter Orquidea Robertson APRN.MEDICAL REVIEW SPECIALIST Work Phone: [facility] Start: 12-18-2024 End: 12-18-2024 ambulatory [facility] Facility:[facility] Start: 12-10-2024 End: 12-10-2024 Telephone encounter Rosalino Carmona MD Work Phone: [facility] Comment on above: Results Start: 12-09-2024 End: 12-09-2024 ambulatory [facility] Facility:[facility] Start: 12-02-2024 End: 12-02-2024 Patient encounter procedure Rosalino Carmona MD Work Phone: [facility] Comment on above: Primary hypertension (Primary Dx); Paroxysmal atrial fibrillation (HCC); Chronic anticoagulation; Anxiety; Bacterial sinusitis; Fatigue, unspecified type Start: 12-02-2024 End: 12-02-2024 ambulatory [facility] Facility:[facility] Start: 09-21-2024 End: 09-21-2024 Patient encounter procedure Breanna Canseco PA-C Work Phone: Orthopaedics Comment on above: Primary osteoarthrit is of both knees (Primary Dx) Start: 09-21-2024 End: 09-21-2024 ambulatory [facility] Facility:[facility] Start: 07-10-2024 End: 07-10-2024 [facility] Facility:[facility] Start: 06-08-2024 End: 06-08-2024 ambulatory [facility] Facility:[facility] Start: 06-08-2024 End: 06-08-2024 Patient encounter procedure Breanna Canseco PA-C Work Phone: Orthopaedics Comment on above: Primary osteoarthrit is of both knees (Primary Dx) Start: 05-26-2024 End: 05-26-2024 Office outpatient visit 15 minutes Orquidea Robertson APRN.MEDICAL REVIEW SPECIALIST Work Phone: [facility] Comment on above: Acute recurrent maxi llary sinusitis (Primary Dx); Anxiety; Primary hypertension Start: 05-26-2024 End: 05-26-2024 ambulatory ORQUIDEA ROBERTSON Facility:[facility] Start: 05-05-2024 End: 05-05-2024 Telephone encounter Rosalino Carmona MD Work Phone: [facility] Comment on above: Patient Update; Bridgette ent Question Start: 04-28-2024 End: 04-28-2024 Patient encounter procedure Rosalino Carmona MD Work Phone: [facility] Comment on above: Paroxysmal atrial fi brillation (HCC) (Primary Dx); Primary hypertension; Stage 3a chronic kidney disease (HCC); Chronic anticoagulation; Anxiety; Screening for depression Start: 04-28-2024 End: 04-28-2024 ambulatory ROSALINO CARMONA Facility:[facility] Start: 04-28-2024 End: 04-29-2024 Telephone encounter Rosalino Carmona MD Work Phone: [facility] Comment on above: Medication Problem Start: 04-10-2024 End: 04-10-2024 Telephone encounter Rosalino Carmona MD Work Phone: [facility] Comment on above: Results Start: 04-10-2024 End: 04-10-2024 Subsequent hospital visit by physician Lg Gallo [facility] Comment on above: Encounter for screen ing mammogram for malignant neoplasm of breast Start: 04-10-2024 End: 04-10-2024 ambulatory [facility] Start: 03-25-2024 End: 03-26-2024 Telephone encounter Rosalino Carmona MD Work Phone: [facility] Comment on above: Orders Start: 03-13-2024 ambulatory [facility] Facility:[facility] Start: 03-13-2024 End: 03-13-2024 ambulatory [facility] Facility:[facility] Start: 03-10-2024 End: 03-10-2024 ambulatory [facility] Facility:[facility] Start: 03-02-2024 End: 03-02-2024 ambulatory BREANNA CANSECO Facility:[facility] Start: 03-02-2024 End: 03-02-2024 Patient encounter procedure Breanna Canseco PA-C Work Phone: Orthopaedics Comment on above: Primary osteoarthrit is of both knees (Primary Dx) Start: 01-27-2024 End: 01-27-2024 Telephone encounter Orquidea Robertson APRN.CNP Work Phone: [facility] Comment on above: Results Start: 01-24-2024 End: 01-24-2024 Office outpatient visit 25 minutes Orquidea Robertson APRN.ALEXX Work Phone: [facility] Comment on above: Anxiety (Primary Dx) ; Acute bronchitis, unspecified organism; Primary hypertension; Chronic fatigue; Stage 3a chronic kidney disease (HCC); Chronic anticoagulation; Screening for lipid disorders; Paroxysmal atrial fibrillation (HCC); Disorder of iron metabolism, unspecified Start: 01-14-2024 End: 01-14-2024 ambulatory Cherelle Rush RN Work Phone: [employer] [facility] [employer] Start: 01-14-2024 End: 01-14-2024 Telephone follow-up Cherelle Rsuh RN Work Phone: [facility] Comment on above: Transition Of Care ( [facility] Follow-up Day 22) Started Weekly phone contact (Recurring) for Transitional Care Management Start: 01-09-2024 End: 01-09-2024 Telephone encounter Orquidea Robertson APRN.MEDICAL REVIEW SPECIALIST Work Phone: [facility] Comment on above: Patient Question Start: 01-07-2024 End: 01-07-2024 ambulatory Cherelle Rush RN Work Phone: [employer] Start: 01-07-2024 End: 01-07-2024 Telephone follow-up Cherelle Rush RN Work Phone: [employer] Comment on above: Transition Of Care ( [facility] Follow-up Day 15) Started Weekly phone contact (Recurring) for Transitional Care Management Start: 12-31-2023 End: 12-31-2023 ambulatory Cherelle Rush RN Work Phone: [employer] Start: 12-31-2023 End: 12-31-2023 Telephone follow-up Chreelle Rush RN Work Phone: [employer] Comment on above: Transition Of Care ( [facility] Follow-up Day 18) Started Weekly phone contact (Recurring) for Transitional Care Management Start: 12-27-2023 End: 12-30-2023 Telephone encounter Rosalino Carmona MD Work Phone: [facility] Comment on above: Insurance Authorizat ion (hydroxyzine) Start: 12-27-2023 End: 12-27-2023 Office outpatient visit 25 minutes Orquidea Robertson APRN.CNP Work Phone: [facility] Comment on above: Primary hypertension (Primary Dx); Paroxysmal atrial fibrillation (HCC); Chronic anticoagulation; Anxiety; Stage 3a chronic kidney disease (HCC); Pain in both knees, unspecified chronicity; Epistaxis Start: 12-26-2023 End: 12-26-2023 Telephone encounter Braenna Canseco PA-C Work Phone: Orthopaedics Start: 12-26-2023 End: 12-26-2023 Patient encounter procedure Breanna Vequyentz PA-C Work Phone: Orthopaedics Comment on above: Primary osteoarthrit is of both knees (Primary Dx); Chronic pain of both knees; Fall, initial encounter Start: 12-26-2023 ambulatory BREANNAAngeline CANSECO Facilit y:[facility] Start: 12-26-2023 End: 12-26-2023 Subsequent hospital visit by physician [facility] Acostana Gonsalo Work Phone: Radiology Comment on above: Acute pain of both k nees [M25.561, M25.562] Start: 12-25-2023 End: 12-25-2023 Orders Only Breanna Vetovitz PA-C Work Phone: Orthopaedics Comment on above: Acute pain of both k nees (Primary Dx) Patient Update; Appo intment Start: 12-24-2023 End: 12-24-2023 Patient Outreach Cherelle Rush RN Work Phone: [facility] Comment on above: Transition Of Care ( [facility] Discharge 12/23/23) Initial phone contact for Transitional Care Management, Started Weekly phone contact (Recurring) for Transitional Care Management Start: 12-20-2023 End: 12-20-2023 Telephone encounter Rosalino Carmona MD Work Phone: [facility] Comment on above: Patient Update Start: 11-25-2023 End: 11-25-2023 Subsequent hospital visit by physician Xr [facility] Gonsalo Work Phone: Radiology Comment on above: [...] Telephone encounter Rosalino Carmona MD Work Phone: [address] [place] [address] Comment on above: Orders Start: 02-04-2023 End: [...] encounter procedure Rosalino Carmona MD Work Phone: [facility] Comment on above: Paroxysmal atrial fi brillation (HCC) (Primary Dx); Primary hypertension; Stage 3a chronic kidney disease (HCC); Chronic anticoagulation; Anxiety Start: 10-17-2022 Orders Only Breanna Brandeeyesica angeles PA-C Work Phone: Orthopaedics Comment on above: Pain in both knees, unspecified chronicity (Primary Dx) Start: 10-15-2022 Telephone encounter Britney Joaquín Richard PA-C Work Phone: [facility] Comment on above: Results Start: 07-16-2022 End: 07-16-2022 Patient encounter procedure Breannadra Canseco PA-C Work Phone: Orthopaedics Comment on above: Chronic pain of both knees (Primary Dx); Primary osteoarthritis of both knees Start: 04-19-2022 Telephone encounter Rosalino Carmona MD Work Phone: [facility] Comment on above: Results Erroneous encounter- disregard Start: 04-18-2022 End: 04-18-2022 Patient encounter procedure Rosalino Carmona MD Work Phone: [facility] Comment on above: Paroxysmal atrial fi brillation (HCC) (Primary Dx); LBBB (left bundle branch block); Primary hypertension; Stage 3a chronic kidney disease (HCC); Chronic anticoagulation; Anxiety; Bacterial sinusitis Start: 04-03-[address] Rosalino Carmona Facility:[id number] Start: 03-12-2022 Telephone encounter Rosalino Carmona MD Work Phone: [address] [place] [address] Comment on above: Orders Start: 03-12-2022 End: 03-12-2022 Patient encounter procedure Breanna Canseco PA-C Work Phone: Orthopaedics Comment on above: Chronic pain of both knees (Primary Dx); Primary osteoarthritis of both knees Start: 12-18-2021 End: 12-18-2021 Subsequent hospital visit by physician Az [facility] Brush Work Phone: Radiology Comment on above: Chronic pain of both knees [M25.561, M25.562, G89.29] Start: 12-18-2021 End: 12-18-2021 Patient encounter procedure Breanna Vetovitz PA-C Work Phone: Orthopaedics Comment on above: Primary osteoarthrit is of both knees (Primary Dx); Chronic pain of both knees Start: 10-14-2021 End: 10-14-2021 Subsequent hospital visit by physician Az [facility] Shelli Work Phone: Radiology Comment on above: Chronic pain of both knees [M25.561, M25.562, G89.29] Start: 10-14-2021 End: 10-14-2021 Patient encounter procedure Rosalino Carmona MD Work Phone: [facility] [place] Comment on above: Paroxysmal atrial fi brillation [...] MD Work Phone: Start: 02-05-2017 End: 02-05-2017 MICHELLE Mchugh MD Start: 02-05-2017 End: 02-05-2017 Follow [...] ANDRZEJ Mchugh MD Start: 01-07-2013 End: 01-07-2013 MICHELLE Greer PA-C Work Phone: Start: 01-07-2013 End: 01-07-2013 eRx Transmitted during this visit (Medicare only) Demetrice Greer PA-C Work Phone: Start: 01-07-2013 End: 01-07-2013 Follow Up Appt 6 months Demetrice moreira PA-C Work Phone: Start: 07-11-2012 End: 07-11-2012 Follow Up Appt 6 months Britney Keller Start: 07-11-2012 End: 07-11-2012 MMBritney Mchugh MD Start: 11-22-2011 End: 11-22-2011 Follow Up Appt 6 months Britney Keller Start: 11-22-2011 End: 12-06-2011 Nuclear stress test -exercise Jeremy Mchugh MD Plan of Treatment Date Care Activity Detail Author Start: 12-19-2027 Diabetes Screening Diabetes Screening [facility] Start: 12-10-2027 Diabetes Screening Diabetes Screening [facility] Start: 01-23-2027 Diabetes Screening Diabetes Screening [facility] Start: 04-09-2026 Diabetes Screening Diabetes Screening [facility] Start: 10-13-2025 DIABETES SCREEN DIABETES SCREEN [facility] Start: 10-13-2025 Diabetes Screening Diabetes Screening [facility] Start: 06-11-2025 End: 06-11-2025 Patient encounter procedure 06/11/2025 8:00 AM EST Office Visit [facility] [address] [place], [place] [id number] Rosalino Carmona MD [address] [place], [place] [id number] medicare wellness [facility] [place] Comment on above: medicare wellness Start: 04-28-2025 Covid-19 Vaccine () Covid-19 Vaccine () [facility] Comment on above: Postponed from 12/22/2023 (Declined at t his time) Start: 04-28-2025 Depression Screening Depression Screening [facility] Start: 04-28-2025 RSV Vaccine (1 - 1-dose 75+ series) RSV Vaccine (1 - 1-dose 75+ series) [facility] Comment on above: Postponed from 09/05/2015 (Declined at t his time) Start: 04-18-2025 DIABETES SCREEN DIABETES SCREEN [facility] Start: 03-29-2025 End: 03-29-2025 Patient encounter procedure 03/29/2025 8:30 AM EST Office Visit Orthopaedics [address] [place] [address] Breanna Canseco PA-C [address] [place] [address] 91 day follow up B/L knees Orthopaedics Comment on above: 91 day follow up B/L knees Start: 02-21-2025 End: 05-23-2025 Thyrotropin [Units/volume] in Serum or Plasma THYROID STIMULATING HORMONE Lab Routine Hypothyroidism, acquired Expected: 02/21/2025, Expires: 05/23/2025 [facility] Work Phone: Comment on above: Expected: 02/21/2025, Expires: Start: 02-21-2025 End: 05-23-2025 Thyroxine (T4) free [Mass/volume] in Serum or Plasma T4 FREE/FREE THYROXINE Lab Routine Hypothyroidism, acquired Expected: 02/21/2025, Expires: 05/23/2025 [facility] Comment on above: Expected: 02/21/2025, Expires: Start: 01-23-2025 Diabetes mellitus screening Diabetes Screening [facility] Start: 01-23-2025 Shingrix Vaccine (1 of 2) Shingrix Vaccine (1 of 2) [facility] Comment on above: Postponed from 1990 (Insurance Cov erage) Start: 01-23-2025 Urine microalbumin profile DTaP,Tdap,Td Vaccine (1 - Tdap) [facility] Comment on above: Postponed from 09/05/1959 (Insurance Cov erage) Start: 01-05-2025 End: 04-06-2025 Basic metabolic 2000 panel - Serum or Plasma BASIC METABOLIC PANEL Lab Routine Hyponatremia Expected: 01/05/2025, Expires: 04/06/2025 [facility] Comment on above: Expected: 01/05/2025, Expires: Start: 01-05-2025 End: 04-06-2025 Magnesium [Mass/volume] in Serum or Plasma MAGNESIUM Lab Routine Hyponatremia Expected: 01/05/2025, Expires: 04/06/2025 [facility] Comment on above: Expected: 01/05/2025, Expires: Start: 12-28-2024 End: 12-28-2024 Patient encounter procedure 12/28/2024 8:30 AM EDT Office Visit Orthopaedics [address] [place] [address] Breanna Canseco PA-C [address] [place] [address] 91 day follow up B/L knees Orthopaedics Comment on above: 91 day follow up B/L knees Start: 12-24-2024 End: 03-25-2025 Basic metabolic 2000 panel - Serum or Plasma BASIC METABOLIC PANEL Lab Routine Renal insufficiency Hypothyroidism, acquired Expected: 12/24/2024, Expires: 03/25/2025 [facility] Work Phone: Comment on above: Expected: 12/24/2024, Expires: Start: 12-24-2024 End: 03-25-2025 T4/FTI/T4U T4/FTI/T4U Lab Routine Renal insufficiency Hypothyroidism, acquired Expected: 12/24/2024, Expires: 03/25/2025 [facility] Comment on above: Expected: 12/24/2024, Expires: Start: 12-24-2024 End: 03-25-2025 Thyrotropin [Units/volume] in Serum or Plasma THYROID STIMULATING HORMONE Lab Routine Renal insufficiency Hypothyroidism, acquired Expected: 12/24/2024, Expires: 03/25/2025 [facility] Comment on above: Expected: 12/24/2024, Expires: Start: 12-24-2024 End: 03-25-2025 Triiodothyronine (T3) [Mass/volume] in Serum or Plasma T3 Lab Routine Renal insufficiency Hypothyroidism, acquired Expected: 12/24/2024, Expires: 03/25/2025 [facility] Comment on above: Expected: 12/24/2024, Expires: Start: 12-21-2024 Influenza vaccination [facility] Start: 12-02-2024 End: 03-02-2025 CBC W Auto Differential panel - Blood COMPLETE BLOOD COUNT AND DIFFERENTIAL Lab Routine Fatigue, unspecified type Expected: 12/02/2024, Expires: 03/02/2025 [facility] Work Phone: Comment on above: Expected: 12/02/2024, Expires: Start: 12-02-2024 End: 03-02-2025 Comprehensive metabolic 2000 panel - Serum or Plasma COMPREHENSIVE METABOLIC PANEL Lab Routine Fatigue, unspecified type Expected: 12/02/2024, Expires: 03/02/2025 [facility] Comment on above: Expected: 12/02/2024, Expires: Start: 12-02-2024 End: 03-02-2025 Lipid 1996 panel - Serum or Plasma LIPID PANEL, FASTING Lab Routine Primary hypertension Expected: 12/02/2024, Expires: 03/02/2025 [facility] Comment on above: Expected: 12/02/2024, Expires: Start: 12-02-2024 End: 03-02-2025 Thyrotropin [Units/volume] in Serum or Plasma THYROID STIMULATING HORMONE Lab Routine Fatigue, unspecified type Expected: 12/02/2024, Expires: 03/02/2025 [facility] Comment on above: Expected: 12/02/2024, Expires: Start: 12-02-2024 End: 12-02-2024 Patient encounter procedure 12/02/2024 8:40 AM EDT Office Visit [facility] [address] [place], [place] [address] Rosalino Carmona MD [address] [place] [address] 6 month follow up [facility] Comment on above: 6 month follow up Start: 10-19-2024 Influenza vaccination Influenza Vaccine (#1) [facility] Comment on above: Postponed from 12/22/2023 (Declined at t his time) Start: 10-09-2024 DIABETES SCREEN DIABETES SCREEN [facility] Start: 09-21-2024 End: 09-21-2024 Patient encounter procedure 09/21/2024 8:30 AM EDT Office Visit Orthopaedics [address] [facility] [place] [address] Breanna Canseco PA-C [address] [place] [address] 91 day follow up - cortisone injecction B/L knee Orthopaedics Comment on above: 91 day follow up - cortisone injecction B/L knee Start: 06-08-2024 End: 06-08-2024 Patient encounter procedure 06/08/2024 8:30 AM EST Office Visit Orthopaedics [address] [place] [address] Breanna Canseco PA-C [address] [place] [address] 91 day follow up - cortisone injecction B/L knee Orthopaedics Comment on above: 91 day follow up - cortisone injecction B/L knee Start: 05-26-2024 End: 05-26-2024 Patient encounter procedure 05/26/2024 8:00 AM EST Office Visit [facility] [address] [place] [address] Orquidea Robertson APRN.MEDICAL REVIEW SPECIALIST [address] [place] [address] 4 week follow up axniety. started on Sertraline. BP check [facility] [place] Comment on above: 4 week follow up axniety. started on Ser traline. BP check Start: 04-28-2024 End: 04-28-2024 Patient encounter procedure 04/28/2024 2:40 PM EST Office Visit Family [facility] [place] [address] [place] [address] Rosalino Carmona MD [address] [place] [address] 3 month f/u [facility] Comment on above: 3 month f/u Start: 03-02-2024 End: 03-02-2024 Patient encounter procedure 03/02/2024 8:30 AM EST Office Visit Orthopaedics [address] [place] [address] Breanna Canseco PA-C [address] [place] [address] 91 day follow up - cortisone injecction B/L knee Orthopaedics Comment on above: 91 day follow up - cortisone injecction B/L knee Start: 01-24-2024 End: 04-24-2024 CBC W Auto Differential panel - Blood [facility] Work Phone: Comment on above: Expected: 01/24/2024, Expires: Start: 01-24-2024 End: 04-24-2024 Cobalamin (Vitamin B12) [Mass/volume] in Serum or Plasma [facility] Comment on above: Expected: 01/24/2024, Expires: Start: 01-24-2024 End: 04-24-2024 Comprehensive metabolic 2000 panel - Serum or Plasma [facility] Comment on above: Expected: 01/24/2024, Expires: Start: 01-24-2024 End: 04-24-2024 Hemoglobin A1c in Blood [facility] Comment on above: Expected: 01/24/2024, Expires: Start: 01-24-2024 End: 04-24-2024 LIPID PANEL, NONFASTING [facility] Comment on above: Expected: 01/24/2024, Expires: Start: 01-24-2024 End: 04-24-2024 Magnesium [Mass/volume] in Serum or Plasma [facility] Comment on above: Expected: 01/24/2024, Expires: Start: 01-24-2024 End: 04-24-2024 Thyrotropin [Units/volume] in Serum or Plasma [facility] Comment on above: Expected: 01/24/2024, Expires: Start: 01-24-2024 End: 01-24-2024 Patient encounter procedure 01/24/2024 8:00 AM EDT Office Visit [facility] [address] [place] [address] Orquidea Robertson APRN.MEDICAL REVIEW SPECIALIST [address] [place] [address] 4 week BP f/u [facility] [place] Comment on above: 4 week BP f/u Start: 12-27-2023 End: 12-27-2023 Patient encounter procedure 12/27/2023 9:20 AM EDT Office Visit [facility] [address] [place] [address] Orquidea Robertson APRN.MEDICAL REVIEW SPECIALIST [address] [place] [address] follow up from [facility] for nose bleeds [facility] [place] Comment on above: follow up from [facility] for nose bleeds Start: 12-26-2023 End: 12-26-2023 Patient encounter procedure Radiology Comment on above: follow up fall- knee pain R>L Start: 12-25-2023 End: 12-25-2023 Patient encounter procedure 12/25/2023 9:00 AM EDT Office Visit [facility] [address] [place] [address] Rosalino Carmona MD [address] [place] [address] ER F/U [facility] 12/20/2023; Nose Bleed [facility] Comment on above: ER F/U [facility] 12/20/2023; Nose Bleed Start: 12-22-2023 COVID-19 Vaccine () COVID-19 Vaccine () [facility] Start: 12-22-2023 Covid-19 Vaccine () Covid-19 Vaccine () [facility] Start: 12-22-2023 Covid-19 Vaccine () Covid-19 Vaccine ( season) [facility] Start: 12-22-2023 Influenza vaccination [facility] Start: 11-25-2023 End: 11-25-2023 Patient encounter procedure 11/25/2023 8:00 AM EDT Office Visit Orthopaedics [address] [place] [address] Breanna Canseco PA-C [address] [place] [address] 91 DAY FOLLOW UP CORTISON INJECTIO B/L Orthopa[facility]ics Comment on above: 91 DAY FOLLOW UP CORTISON INJECTIO B/L Start: 10-19-2023 COVID-19 VACCINE (4 - Booster for Pfizer series) COVID-19 VACCINE (4 - Booster for Pfizer series) [facility] Comment on above: Postponed from 04/20/2021 (Declined at t his time) Start: 10-19-2023 COVID-19 VACCINE (4 - Pfizer series) COVID-19 VACCINE (4 - Pfizer series) [facility] Comment on above: Postponed from 04/20/2021 (Declined at t his time) Start: 10-19-2023 SHINGRIX VACCINE (1 of 2) SHINGRIX VACCINE (1 of 2) [facility] Comment on above: Postponed from 1990 (Declined at t his time) Start: 10-19-2023 Urine microalbumin profile [facility] Comment on above: Postponed from 09/05/1959 (Declined at t his time) Start: 04-22-2023 Advance Directive Discussion Advance Directive Discussion [facility] Start: 04-22-2023 Behavioral Health Screening Behavioral Health Screening [facility] Start: 04-19-2023 End: 06-19-2023 Basic metabolic 2000 panel - Serum or Plasma BASIC METABOLIC PNL Lab Routine Stage 3a chronic kidney disease (HCC) Expected: 04/19/2023, Expires: 06/19/2023 [facility] Work Phone: Comment on above: Expected: 04/19/2023, Expires: Start: 04-19-2023 End: 06-19-2023 CBC W Auto Differential panel - Blood CBC + DIFF Lab Routine Stage 3a chronic kidney disease (HCC) Expected: 04/19/2023, Expires: 06/19/2023 [facility] Work Phone: Comment on above: Expected: 04/19/2023, Expires: 4 Start: 12-21-2022 Covid-19 Vaccine () Covid-19 Vaccine () [facility] Start: 12-21-2022 Influenza vaccination [facility] Start: 10-14-2022 SHINGRIX VACCINE (1 of 2) SHINGRIX VACCINE (1 of 2) [facility] Comment on above: Postponed from 1990 (Insurance Cov erage) Start: 10-14-2022 Urine microalbumin profile DTAP,TDAP,TD (1 - Tdap) [facility] Comment on above: Postponed from 09/05/1959 (Insurance Cov erage) Start: 04-22-2022 ADVANCE DIRECTIVE DISCUSSION ADVANCE DIRECTIVE DISCUSSION [facility] Start: 04-22-2022 DEPRESSION ASSESSMENT DEPRESSION ASSESSMENT [facility] Start: 04-19-2022 End: 06-19-2022 CBC W Auto Differential panel - Blood CBC + DIFF Lab Routine Leukocytosis, unspecified type Expected: 04/19/2022, Expires: 06/19/2022 [facility] Work Phone: Comment on above: Expected: 04/19/2022, Expires: 3 Start: 04-15-2022 End: 06-15-2022 Basic metabolic 2000 panel - Serum or Plasma BASIC METABOLIC PNL Lab Routine Stage 3a chronic kidney disease (HCC) Expected: 04/15/2022, Expires: 06/15/2022 [facility] Work Phone: Comment on above: Expected: 04/15/2022, Expires: 3 Start: 04-15-2022 End: 06-15-2022 CBC W Auto Differential panel - Blood CBC + DIFF Lab Routine Primary hypertension Chronic anticoagulation Expected: 04/15/2022, Expires: 06/15/2022 [facility] Work Phone: Comment on above: Expected: 04/15/2022, Expires: 3 Start: 12-21-2021 Influenza vaccination INFLUENZA (#1) [facility] Start: 06-23-2021 COVID-19 VACCINE (4 - Booster for Pfizer series) COVID-19 VACCINE (4 - Booster for Pfizer series) [facility] Start: 04-22-2021 DEPRESSION ASSESSMENT DEPRESSION ASSESSMENT [facility] Start: 04-20-2021 COVID-19 VACCINE (4 - Booster for Pfizer series) COVID-19 VACCINE (4 - Booster for Pfizer series) [facility] Start: 02-06-2018 End: 02-06-2018 Appointment Appointment [facility] Work Phone: Start: 02-05-2017 End: 02-05-2017 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 [facility] Work Phone: Start: 02-05-2017 End: 02-05-2017 Follow Up Appt 1 year Follow Up Appt 1 year [facility] Work Phone: Start: 01-23-2016 End: 01-23-2016 Follow Up Appt 1 year Follow Up Appt 1 year [facility] Work Phone: Start: 01-23-2016 End: 01-23-2016 MMM MMM [facility] Work Phone: Start: 09-05-2015 RSV High Risk: (Elderly (60+) or Population) (1 - 1-dose 75+ series) RSV High Risk: (Elderly (60+) or Population) (1 - 1-dose 75+ series) [facility] Start: 09-05-2015 RSV Vaccine (1 - 1-dose 75+ series) RSV Vaccine (1 - 1-dose 75+ series) [facility] Start: 02-15-2015 End: 02-15-2015 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 [facility] Work Phone: Start: 02-15-2015 End: 02-15-2015 Follow Up Appt 1 year Follow Up Appt 1 year [facility] Work Phone: Start: 02-16-2014 End: 02-16-2014 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 [facility] Work Phone: Start: 02-16-2014 End: 02-16-2014 Follow Up Appt 1 year Follow Up Appt 1 year [facility] Work Phone: Start: 08-11-2013 End: 08-11-2013 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 [facility] Work Phone: Start: 08-11-2013 End: 02-16-2014 Follow Up Appt 6 months Follow Up Appt 6 months [facility] Work Phone: Start: 08-11-2013 End: 02-16-2014 MMM MMM [facility] Work Phone: Start: 01-07-2013 End: 01-07-2013 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 [facility] Work Phone: Start: 01-07-2013 End: 01-07-2013 Follow Up Appt 6 months Follow Up Appt 6 months [facility] Work Phone: Start: 07-11-2012 End: 07-11-2012 Follow Up Appt 6 months Follow Up Appt 6 months [facility] Work Phone: Start: 07-11-2012 End: 07-11-2012 MMM MMM [facility] Work Phone: Start: 11-22-2011 End: 11-22-2011 Follow Up Appt 6 months Follow Up Appt 6 months [facility] Work Phone: Start: 11-22-2011 End: 11-22-2011 Nuclear stress test -exercise Nuclear stress test -exercise [facility] Work Phone: Start: 09-20-2002 Medicare Annual Wellness Visit Medicare Annual Wellness Visit [facility] Start: 2000 RSV Vaccine (1 - 1-dose 60+ series) RSV Vaccine (1 - 1-dose 60+ series) [facility] Start: 1990 SHINGRIX VACCINE (1 of 2) SHINGRIX VACCINE (1 of 2) [facility] Start: 1990 Zoster Vaccines (1 of 2) Zoster Vaccines (1 of 2) [facility] Start: 05-16-1963 DTaP/Tdap/Td Vaccines (1 - Tdap) DTaP/Tdap/Td Vaccines (1 - Tdap) [facility] Start: 09-05-1959 Urine microalbumin profile [facility] Start: 1958 Depression Screening Depression Screening [facility] Start: 1940 Lipid panel Lipid Panel [facility] Start: 1940 Medicare Annual Wellness Visit Medicare Annual Wellness Visit (AWV) [facility] End: 04-24-2025 DBT Breast - bilateral screening [facility] SCREENING [facility] Radiology Routine Screening mammogram for breast cancer 1 Occurrences starting 03/25/2024 until 04/24/2025 [facility] Work Phone: Comment on above: 1 Occurrences starting 03/25/2024 until 04/24/2025 End: 04-11-2023 MC SCREENING W JO[facility] SCREEN[facility] Radiology Routine Encounter for screening mammogram for malignant neoplasm of breast 1 Occurrences starting 03/12/2022 until 04/11/2023 [facility] Work Phone: Comment on above: 1 Occurrences starting 03/12/2022 until 04/11/2023 End: 03-26-2024 MC SCREENING W JOEL [facility] SCREENING [facility] Radiology Routine Encounter for screening mammogram for malignant neoplasm of breast 1 Occurrences starting 02/25/2023 until 03/26/2024 [facility] Work Phone: Comment on above: 1 Occurrences starting 02/25/2023 until 03/26/2024 End: 12-24-2024 XR Knee - bilateral 4 Views XR KNEE GENERAL 4V AP BOTH/PA BOTH/LAT/MERC BILATERAL Radiology Routine Primary osteoarthritis of both knees Chronic pain of both knees 1 Occurrences starting 11/25/2023 until 12/24/2024 [facility] Work Phone: Comment on above: 1 Occurrences starting 11/25/2023 until 12/24/2024 XR Knee - bilateral 4 Views XR KNEE GENERAL 4V AP BOTH/PA BOTH/LAT/MERC BILATERAL Radiology Routine Primary osteoarthritis of both knees Chronic pain of both knees 11/25/2023 8:48 AM EDT [facility] End: 01-23-2025 XR Knee - bilateral 4 Views XR KNEE GENERAL 4V AP BOTH/PA BOTH/LAT/MERC BILATERAL Radiology Routine Acute pain of both knees 1 Occurrences starting 12/25/2023 until 01/23/2025 [facility] [facility] [place] Work Phone: Comment on above: 1 Occurrences starting 12/25/2023 until 01/23/2025 XR KNEE GENERAL 4V A P BOTH/PA BOTH/LAT/MERC BILATERAL XR KNEE GENERAL 4V AP BOTH/PA BOTH/LAT/MERC BILATERAL Radiology Routine Chronic pain of both knees 10/14/2021 9:06 AM EDT [facility] [place] Work Phone: End: 11-16-2023 XR KNEE GENERAL 4V AP BOTH/PA BOTH/LAT/MERC BILATERAL XR KNEE GENERAL 4V AP BOTH/PA BOTH/LAT/MERC BILATERAL Radiology Routine Pain in both knees, unspecified chronicity 1 Occurrences starting 10/17/2022 until 11/16/2023 [facility] [place] Work Phone: Comment on above: 1 Occurrences starting 10/17/2022 until 11/16/2023 [facility] Immunizations Immunization Date Immunization Notes Care Provider [facility] 01-12-2022 influenza, high dose seasonal, preservative-free Rosalino Carmona MD Work Phone: [facility] 01-12-2022 influenza virus vacc ine, unspecified formulation Breanna Canseco PA-C Work Phone: [facility] 02-23-2021 COVID-19 vaccine, ag e 12+ yr (PFIZER-BIONTECH - PURPLE TOP) Rosalino Carmona MD Work Phone: [facility] Work Phone: 01-13-2021 influenza, high dose seasonal, preservative-free Rosalino Carmona MD Work Phone: [facility] Work Phone: 07-22-2020 COVID-19 vaccine, ag e 12+ yr (PFIZER-BIONTECH - PURPLE TOP) Rosalino Carmona MD Work Phone: [facility] Work Phone: 06-23-2020 COVID-19 vaccine, ag e 12+ yr (PFIZER-BIONTClear[employer]Data Analytics - PURPLE TOP) Rosalino Carmona MD Work Phone: [facility] Work Phone: 12-25-2018 influenza, high dose seasonal, preservative-free Rosalino Carmona MD Work Phone: [facility] 01-13-2018 influenza, high dose seasonal, preservative-free Rosalino Carmona MD Work Phone: [facility] 01-09-2017 influenza, high dose seasonal, preservative-free Rosalino Carmona MD Work Phone: [facility] 01-13-2016 influenza, high dose seasonal, preservative-free Rosalino Carmona MD Work Phone: [facility] 01-05-2015 influenza, high dose seasonal, preservative-free Rosalino Carmona MD Work Phone: [facility] 01-05-2015 pneumococcal conjuga te vaccine, 13 valent Rosalino Carmona MD Work Phone: [facility] 01-11-2014 influenza, high dose seasonal, preservative-free Rosalino Carmona MD Work Phone: [facility] 03-21-2006 pneumococcal polysaccharide vaccine, 23 valent Rosalino Carmona MD Work Phone: [facility] Payers Date Payer Category Payer Self-pay 2022 Medicare supplementa l policy (as second payer) [facility] [id number] 2017 [address] Health Insurance [facility] AARP SUPPLEMENT [id number] 2017-Present [phone] [address] [place] [address] Indemnity [id number] 2017 Private Health Insurance [id number] 2002 Medicare MEDICARE MEDICAR E A AND B [id number] 2002-Present [phone] [address] [address] [place] [address] Medicare [id number] 2002 Medicare [id number] 2002 Medicare [id number] 2000 Unknown [id number] 1940 Unknown [id number] 1940 Unknown [id number] Medicare [id number] Unknown [id number] Unknown [id number] Unknown [id number] Unknown [id number] Unknown [id number] Social History Date Type Detail Facility Start: 02-15-2018 End: 12-22-2023 Tobacco smoking status WIIS Ex-smoker [facility] Start: 02-15-2018 End: 04-18-2022 Tobacco use and exposure Smokeless tobacco non-user [facility] Start: 10-14-2021 End: 12-28-2024 Alcohol intake Current non-drinker of alcohol (finding) [facility] Start: 1940 Sex Assigned At Not on file [facility] History of tobacco use Current smoker [facility] Start: 12-08-2021 End: 04-10-2024 Exposure to SARS-CoV-2 (event) Not sure [facility] Start: 10-18-2022 End: 10-29-2022 History of Social function [facility] Work Phone: Start: 10-18-2022 End: 10-29-2022 Tobacco use panel [facility] Work Phone: Start: 03-23-2012 Adult Depression Screening Assessment 0 [facility] Work Phone: (I/We) worried wheth er (my/our) food would run out before (I/we) got money to buy more. Never true [facility] Work Phone: Tobacco smoking stat [facility] Tobacco smoking consumption unknown [facility] Work Phone: Start: 10-18-2022 Alcohol Alcohol [facility] Start: 10-18-2022 Lives Lives [facility] Start: 10-18-2022 Tobacco Use Tobacco Use [facility] Start: 1940 Sex Assigned At Female W [facility] Clinical Notes 10-14-2021 to 01-08-2025 Breanna Canseco PA-C - 12/28/2024 8:39 AM Carmelita Rasmussen MA - 12/28/2024 8:14 AM EDTResult Encounter Note - Orquidea Robertson APRN.CNP - 12/22/2024 3:57 PM EDTPatient Instructions Note Date & Type Note Facility 01-08-2025 Progress note [facility] 12-28-2024 Note HNO ID: [id number] Author: BREANNA CANSECO PA-C Service: ? Author Type: Physician Board Attendant Type: Progress Notes Filed: 12/28/2024 08:40 Note [...] these instructions. Informed Consent Consent Obtained: Verbal Wadsworth Protocol A moment to CARE was completed. [...] the bedside nurse for hospitalized patients) applicable. [facility] 12-28-2024 History of Present illness Narrative [...] these instructions. Informed Consent Consent Obtained: Verbal Wadsworth Protocol A moment to CARE was completed. [...] injections bilateral knees. documented in this encounter [facility] 12-28-2024 Note HNO ID: [id number] Author: CARMELITA TRAN MA Service: ? Author Type: Morning Show Newscast Producer Type: Progress Notes Filed: 12/28/2024 08:40 Note [...] the pain. Here for injections bilateral knees. [facility] 12-22-2024 Progress note Formatting of t his note might be different from the original. Namebrand Synthroid 25 mcg ordered. [facility] 12-22-2024 Miscellaneous Notes Namebrand Synthroid 25 mcg [...] have been ordered. documented in this encounter [facility] 12-22-2024 Telephone encounter Note Patient was made aware of the results. Patient verbalizes understanding. Patient is asking for name brand only synthroid to be sent to the pharmacy. Her niece suggested it and patient is requesting. Michelle Marie Ma [facility] 12-22-2024 Telephone encounter Note ----- Message from [...] 8:26 PM EDT To: Rosalino Carmona MD [facility] 12-22-2024 Progress note Formatting of t his [...] Labs and the thyroid have been ordered. [facility] 12-10-2024 Telephone encounter Note Pt called and is notified of providers results and instructions. Pt voices understanding. Gregoria Anderson RN [facility] 12-10-2024 Miscellaneous Notes Pt called and is notified of providers results and instructions. Pt voices understanding. Gregoria Anderson RN Labs are ok except renal function is slightly low. Thyroids is borderline. Push fluids and recheck labs in two weeks. documented in this encounter [facility] 12-10-2024 Telephone encounter Note Labs are ok except renal function is slightly low. Thyroids is borderline. Push fluids and recheck labs in two weeks. [facility] 12-02-2024 Note HNO ID: [id number] Author: ROSALINO CARMONA MD Service: ? Author [...] send lab re (more content not included)... [facility] 12-02-2024 History of Present illness Narrative [...] to patient) Rosalino Carmona MD Recording using [employer] software for draft documentation of the visit was discussed with the patient/authorized account services representative; all questions welcomed and answered. Patient/authorized account services representative agreed to proceed [1] Social History Tobacco Use Smoking status: Former Smokeless tobacco: Never Vaping Use Vaping status: Never Used Substance Use Topics Alcohol use: No Drug use: No documented in this encounter [facility] 12-02-2024 Instructions Rosalino Carmona MD - 12/02/2024 8:54 AM EDT - Start amoxicillin (mid-range dose) for 7 days for your sinus infection; prescription sent to [facility] in [place]. - Refill your amlodipine, hydralazine, and metoprolol [...] contact the office. documented in this encounter [facility] 09-21-2024 Note HNO ID: [id number] Author: BREANNA CANSECO PA-C Service: ? Author Type: Physician Board Attendant Type: Progress Notes Filed: 09/21/2024 09:10 Note [...] these instructions. Informed Consent Consent Obtained: Verbal Wadsworth Protocol A moment to CARE was completed. [...] the bedside nurse for hospitalized patients) applicable. [facility] 09-21-2024 History of Present illness Narrative [...] these instructions. Informed Consent Consent Obtained: Verbal Wadsworth Protocol A moment to CARE was completed. [...] for injections today. documented in this encounter [facility] 09-21-2024 Note HNO ID: [id number] Author: CARMELITA TRAN MA Service: ? Author Type: Morning Show Newscast Producer Type: Progress Notes Filed: 09/21/2024 09:10 Note [...] for the pain. Here for injections today. [facility] 06-08-2024 Note HNO ID: [id number] Author: BREANNA CANSECO PA-C Service: ? Author Type: Physician Board Attendant Type: Progress Notes Filed: 06/08/2024 08:32 Note Text: Large Joint Arthro/Inj: bilateral knee joints Informed Consent Consent Obtained: Verbal Wadsworth Protocol A moment to CARE was completed. [...] Plan of Care Visit completed when applicable [facility] 06-08-2024 History of Present illness Narrative Associated Order(s): Large Joint Arthro/Inj: bilateral knee joints Post-Procedure Diagnose(s): Primary osteoarthritis of both knees Large Joint Arthro/Inj: bilateral knee joints Informed Consent Consent Obtained: Verbal Wadsworth Protocol A moment to CARE was completed. [...] injections bilateral knees documented in this encounter [facility] 06-08-2024 Note HNO ID: [id number] Author: CARMELITA TRAN MA Service: ? Author Type: Morning Show Newscast Producer Type: Progress Notes Filed: 06/08/2024 08:32 Note Text: Patient presents with: Right Knee - Follow Up, Injections Left Knee - Follow Up, Injections: 14 weeks post visit OA bilateral knees with injections given Wants injections AMB ROOMING INTAKE FLOWSHEET DATA Patient denies any pain today. Here for cortisone injections bilateral knees [facility] 05-26-2024 Instructions Orquidea Robertson APRN.CNP - 05/26/2024 8:28 AM EST - AMOXICILLIN 875 MG-POTASSIUM CLAVULANATE 125 MG TABLET - Saline nasal spray frequently while on antibiotic - follow up in 6 months documented in this encounter [facility] 05-26-2024 Note HNO ID: [id number] Author: ORQUIDEA ROBERTSON APRN.CNP Service: ? Author [...] 157/69 Pulse 75 Ht 167.6 cm (5' 6) Wt 88.5 kg (195 lb) BMI 31.47 [...] as needed for worsening/no improvement. Orquidea Robertson APRN.[facility] 05-26-2024 History of Present illness Narrative This [...] 157/69 Pulse 75 Ht 167.6 cm (5' 6) Wt 88.5 kg (195 lb) BMI 31.47 [...] as needed for worsening/no improvement. Orquidea Robertson APRN.MEDICAL REVIEW SPECIALIST documented in this encounter [facility] 05-05-2024 Telephone encounter Note Patient informed and verbalized understanding. Cindy Aguiar MA [facility] 05-05-2024 Miscellaneous Notes Patient informed and verbalized understanding. Cindy Aguiar MA Avoid dairy. May not be med related. If continues, needs seen Pt called in and reports she started 2 new heart medications in February Amlodipine and Hydralazine, and she increased her Metoprolol. She said the Grip Wrapper discontinued her Diltiazem. She though maybe these medication had given her diarrhea, but her Grip Wrapper didn't think so and told her to [...] he would recommend. documented in this encounter [facility] 05-05-2024 Telephone encounter Note Avoid dairy. May not be med related. If continues, needs seen [facility] 05-05-2024 Telephone encounter Note Pt called in and reports she started 2 new heart medications in February Amlodipine and Hydralazine, and she increased her Metoprolol. She said the Grip Wrapper discontinued her Diltiazem. She though maybe these medication had given her diarrhea, but her Grip Wrapper didn't think so and told her to [...] there is something else he would recommend. [facility] 04-29-2024 Telephone encounter Note Pt called and is notified of providers message and instructions. Pt voices understanding. I talked with her and she is going to try the medication and will let provider know how it is going when she comes in for her appointment. Gregoria Anderson RN [facility] 04-29-2024 Miscellaneous Notes Pt called and is [...] Please advise pt. documented in this encounter [facility] 04-28-2024 Telephone encounter Note That is not a significant side effect. The most common side effect of any medicine is none. That is just listed because someone during the med trials not suprisingly had nose bleeds. That is the danger of reading side effect profiles without having pharmacological background to understand what they mean. [facility] 04-28-2024 Telephone encounter Note Pt reports she [...] to take the sertraline. Please advise pt. [facility] 04-28-2024 History of Present illness Narrative Patient [...] 166/60 Pulse 65 Ht 167.6 cm (5' 6) Wt 89.8 kg (198 lb) SpO2 99% [...] Rosalino Carmona MD documented in this encounter [facility] 04-28-2024 Note HNO ID: [id number] Author: ROSALINO CARMONA MD Service: ? Author [...] 166/60 Pulse 65 Ht 167.6 cm (5' 6) Wt 89.8 kg (198 lb) SpO2 99% [...] Z13.31 - DEPRESSION SCREENING Rosalino Carmona MD [facility] 04-10-2024 Telephone encounter Note mammogram [facility] 04-10-2024 Miscellaneous Notes mammogram See mammo results: Scan on 04/10/2024 9:25 AM by Provider, ELY Armendariz: Mammography documented in this encounter [facility] 04-10-2024 Telephone encounter Note See mammo results: Scan on 04/10/2024 9:25 AM by Provider, ELY Armendariz: Mammography [facility] 03-26-2024 Telephone encounter Note Order faxed to as requested. Sent via [employer]. Patient notified. [facility] 03-26-2024 Miscellaneous Notes Order faxed to as requested. Sent via [employer]. Patient notified. Patient calling she received her reminder to get mamm order. She does at [facility] in [place]. Last year was done on 04/09/2023. She wants a 3 D mamm faxed to [phone]. Pending order. Please advise documented in this encounter [facility] 03-25-2024 Telephone encounter Note Patient calling she received her reminder to get mamm order. She does at [facility] in [place]. Last year was done on 04/09/2023. She wants a 3 D mamm faxed to [phone]. Pending order. Please advise [facility] 03-02-2024 Note HNO ID: [id number] Author: BREANNA CANSECO PA-C Service: ? Author Type: Physician Board Attendant Type: Progress Notes Filed: 03/02/2024 09:26 Note Text: Large Joint Arthro/Inj: bilateral knee joints Informed Consent Consent Obtained: Verbal Wadsworth Protocol A moment to CARE was completed. [...] Plan of Care Visit completed when applicable [facility] 03-02-2024 History of Present illness Narrative Associated Order(s): Large Joint Arthro/Inj: bilateral knee joints Post-Procedure Diagnose(s): Primary osteoarthritis of both knees Large Joint Arthro/Inj: bilateral knee joints Informed Consent Consent Obtained: Verbal Wadsworth Protocol A moment to CARE was completed. [...] Days Frequency: Continuous documented in this encounter [facility] 03-02-2024 Note HNO ID: [id number] Author: BERNADINE HOOK LPN Service: ? Author Type: LICENSED NURSE Type: Progress Notes Filed: 03/02/2024 09:26 Note Text: AMB ROOMING INTAKE FLOWSHEET DATA Pain Pain Level: 2 Pain Location: Knee-Right Description: Sore Duration Amount of Time: 1 Duration Units: Days Frequency: Continuous [facility] 01-27-2024 Telephone encounter Note Letter mailed to pt home of results. Maria Dolores Lerma MA [facility] 01-27-2024 Miscellaneous Notes Letter mailed to pt home of results. Maria Dolores Lerma MA ----- Message from Orquidea Robertson sent at 01/27/2024 8:52 AM EDT ----- Labs were okay except that her white blood count was high. We are treating her for bronchitis. This was an expected finding. All other labs were okay. documented in this encounter [facility] 01-27-2024 Telephone encounter Note ----- Message from Orquidea Robertson sent at 01/27/2024 8:52 AM EDT ----- Labs were okay except that her white blood count was high. We are treating her for bronchitis. This was an expected finding. All other labs were okay. [facility] 01-24-2024 Instructions Orquidea Robertson APRN.ALEXX - 01/24/2024 8:25 AM EDT 1) Check labs 2) Doxycycline 100 mg 2 x day 3) Follow up in 3 months documented in this encounter [facility] 01-24-2024 History of Present illness Narrative This [...] as needed for worsening/no improvement. Orquidea Robertson APRN.MEDICAL REVIEW SPECIALIST documented in this encounter [facility] 01-14-2024 History of Present illness Narrative Transitional Care Management (TCM) Follow-Up Note PCP Update / Actionable Items Future Apts 01/23 Famp Wstr 03/02 ORTHO WSTR N/A - No specialty updates needed Patient Source: Qui-pv-Siebbvw (OON) Discharge Outreach Summary: Patient states is [...] , no issues, stabl Patient discharged from [facility] Discharge date: 12/23/23 Admitted for: Epistaxi Readmission [...] 2024 2:29 PM documented in this encounter [facility] 01-09-2024 Telephone encounter Note Patient notified of provider message and is agreeable to call Dr Lolita Marie MA January 09, 2024 2:57 PM [facility] 01-09-2024 Miscellaneous Notes Patient notified of provider [...] now. Please advise documented in this encounter [facility] 01-09-2024 Telephone encounter Note She follows with Dr. Dunlap. I would prefer that they weigh in on this. [facility] 01-09-2024 Telephone encounter Note Patient calling a week ago Dr Aniya GUEVARA cauterized the bleeding her nose and she had follow up with him today. He said Ok but to check with PCP about restarting the Eliquis. She has been off of the Eliquis for 2 weeks now. Please advise [facility] 01-07-2024 History of Present illness Narrative Transitional Care Management (TCM) Follow-Up Note PCP Update / Actionable Items Day 15 Future Apts 01/23 Famp Wstr 03/02 ORTHO WSTR N/A - No specialty updates needed Patient Source: Xuo-ri-Zujuheb (OON) Discharge Outreach Summary: Patient states is [...] , no issues, stabl Patient discharged from [facility] Discharge date: 12/23/23 Admitted for: Epistaxi Readmission [...] 2024 6:34 PM documented in this encounter [facility] 12-31-2023 History of Present illness Narrative Transitional Care Management (TCM) Follow-Up Note PCP Update / Actionable Items Day 18 Future Apts 01/23 Famp Wstr 03/02 ORTHO WSTR N/A - No specialty updates needed Patient Source: Tdm-ot-Ftuvyaj (OON) Discharge Outreach Summary: Patient states is [...] , no issues, stabl Patient discharged from [facility] Discharge date: 12/23/23 Admitted for: Epistaxi Readmission [...] 2023 3:39 PM documented in this encounter [facility] 12-30-2023 Telephone encounter Note Tricia Granados (Ledezma: [id number]) SAMANTHA Rx #: [id number] Need Help? Call us at Outcome Approved [...] Request Form (2016 NCPDP) Original Claim Info [id number] IF LEVEL OF CARE CHANGE CALL HELP DESK Pharmacy notified. [facility] 12-30-2023 Miscellaneous Notes Tricia Granados (Ledezma: [id number]) SAMANTHA Rx #: [id number] Need Help? Call us at Outcome Approved on December 26 by [employer] 2017 Approved. This drug has been approved under the [facility] Medicare Part D benefit. Approved quantity: 60 [...] Request Form (2016 NCPDP) Original Claim Info [id number] IF LEVEL OF CARE CHANGE CALL HELP DESK Pharmacy notified. Prior Authorization has been completed online at [employer] for hydroxazine, will await response. LEDEZMA- [id number] Please keep encounter open until final decision has been received and documented from insurance company. Lynette Weinstein MA documented in this encounter [facility] 12-27-2023 Telephone encounter Note Prior Authorization has been completed online at [employer] for hydroxazine, will await response. LEDEZMA- BNCYDKFG Please keep encounter open until final decision has been received and documented from insurance company. Lynette Weinstein MA [facility] 12-27-2023 Instructions Orquidea Robertson APRN.ALEXX - 12/27/2023 10:14 AM EDT 1) Consider getting knee supports for knees 2) Consider diclofenac topical gel 2 x day to knees (OTC) 3) Do not start Eliquis until Dr. Elliott says ok 4) Increase hydralazine to 50 mg 3 x day 5) Hydroxyzine 25 mg up to 3 x day as need for anxiety documented in this encounter [facility] 12-27-2023 History of Present illness Narrative This is a 83 year old female who presents today with: Patient presents with: Hospital F/U: [facility] Follow up HISTORY OF PRESENT ILLNESS: Tricia Granados is a 83 year old female. Patient presents with: Hospital F/U: [facility] Follow up Admitted for severe nose bleeds [...] keratosis Comment: right ear PAST SURGICAL HISTORY 1969': HYSTERECTOMY Comment: bleediing issues. no malignancy 01/11/1995: [...] scheduled or as needed for worsening/no improvement. Orquideaishmael Robertson APRN.CNP documented in this encounter [facility] 12-26-2023 History of Present illness Narrative Breanna Canseco PA-C Department of Orthopaedics Orthopaedics [address] [address] Dept: [phone] December 26, 2023 CHIEF COMPLAINT: Knee Pain [...] 8:15AM NINO 5618 - XR KNEE 4V AP/PA/LAT/MERC OSBALDO / PROCEDURE REASON: multiple diagnoses * [...] the knees. Mild degenerative change, as described. Html Web Developer: SKYLER Transcribe Date/Time: Dec 26 2023 1:07P [...] anxiety) This note was partially generated using [employer] voice recognition system, and there may be some incorrect words, spellings, and punctuation that were not noted in checking the note before saving. Breanna Canseco PA-C documented in this encounter [facility] 12-25-2023 Telephone encounter Note Spoke with patient - she will see Breanna tomorrow at 8:30 and will get an xray prior just to ensure nothing in broken. Pt verbalized understanding. [facility] 12-25-2023 Miscellaneous Notes Spoke with patient - she will see Breanna tomorrow at 8:30 and will get an xray prior just to ensure nothing in broken. Pt verbalized understanding. Patient calling and states over the weekend she slipped at home and landed on her knees and she has been unable to bear weight on her right knee. She was just discharged from [facility] for epistaxis and she has been hesitant [...] Alia Rojas LPN documented in this encounter [facility] 12-25-2023 Telephone encounter Note Patient calling and states over the weekend she slipped at home and landed on her knees and she has been unable to bear weight on her right knee. She was just discharged from [facility] for epistaxis and she has been hesitant [...] is indicated? Please advise. Alia Rojas LPN [facility] 12-24-2023 History of Present illness Narrative Requesting [...] Readmission Risk Score: n/a Patient's zip code: [address] Is zip code within program service area: No Patient meets program referral criteria: No Patient does not qualify for High Risk TCM Home Visit program due to: Readmission Risk Score does not meet criteria Disposition: Patient does not qualify for HRTIC, will provide TCM outreach follow-up for 30-days Patient Source: [id number] ([facility]) Discharge Outreach Summary: Patient states is feeling same Patient states that she has a lot of anxiety was on Xanax wants a refill will route to PCP, send to [facility] [address] Left nares packing, [...] , no issues, stable Patient discharged from [facility] Discharge date: 12/23/23 Admitted for: Epistaxi Readmission Risk: n/a Value-Based Contract: ACO Contact: Contact made with patient: Yes Hi, my name is Cherelle Rush RN and I am calling from the [facility] on behalf of your Primary Care Provider, [...] like to speak with a social work steam shovel oiler to help give you support for any [...] I will send your request to a magazine keeper who will contact and assist you with [...] 2023 1:31 PM documented in this encounter [facility] 12-20-2023 Telephone encounter Note Rescheduled. [facility] 12-20-2023 Miscellaneous Notes Rescheduled. She should follow up with one of us before the five days is up. Patient calls and states that she was seen in [facility] ER for a nosebleed this morning. Patient states that [facility] ER had called Dr. Mcnulty's office and the doctor electronics parts sales representative had told patient to hold the Eliquis x [address] Carmona advise on what to do with Eliquis after 5 days. Patient calling and asking for Dr. Carmona's advise on this. Patient is scheduled for ER follow up with Dr. Carmona on Tuesday 12/26. Shanna Parkinson RN documented in this encounter [facility] 12-20-2023 Telephone encounter Note She should follow up with one of us before the five days is up. [facility] 12-20-2023 Telephone encounter Note Patient calls and states that she was seen in [facility] ER for a nosebleed this morning. Patient states that [facility] ER had called Dr. Mcnulty's office and the doctor electronics parts sales representative had told patient to hold the Eliquis x [address] Carmona advise on what to do with Eliquis after 5 days. Patient calling and asking for Dr. Carmona's advise on this. Patient is scheduled for ER follow up with Dr. Carmona on Tuesday 12/26. Shanna Parkinson RN [facility] 11-25-2023 History of Present illness Narrative Associated Order(s): Large Joint Arthro/Inj: bilateral knee joints Post-Procedure Diagnose(s): Primary osteoarthritis of both knees; Chronic pain of both knees Breanna Canseco PA-C Department of Orthopaedics Orthopaedics [address] [facility] [address] Dept: [phone] Dept November 25, 2023 CHIEF COMPLAINT: Follow [...] knee joints Informed Consent Consent Obtained: Verbal Wadsworth Protocol A moment to CARE was completed. [...] Caffeine This note was partially generated using [employer] voice recognition system, and there may be [...] to discuss options. documented in this encounter [facility] 11-25-2023 History of Present illness Narrative Radiology [...] PATIENT PRESENTS WITH AN IMPLANTABLE OR ATTACHED SUPERVISOR FORMING AND TEMPERING: No RADIOLOGY DEPARTMENT: General X-ray: Exam(s) Completed: Lower Extremity X-Ray(s): Knee, AP / Lat / Tunne / Merchant Bilateral and Wt. Bearing PERIPHERAL IV DATA: Not applicable SIGNED BY: RT Agapito(R) November 25, 2023 9:52 AM documented in this encounter [facility] 08-19-2023 History of Present illness Narrative Associated Order(s): Large Joint Arthro/Inj: bilateral knee joints Post-Procedure Diagnose(s): Primary osteoarthritis of both knees; Chronic pain of both knees Large Joint Arthro/Inj: bilateral knee joints Informed Consent Consent Obtained: Verbal Wadsworth Protocol A moment to CARE was completed. [...] Sabiha Chew MA documented in this encounter [facility] 02-25-2023 Miscellaneous Notes Order faxed to [phone]. Randall Purcell Order placed. Please fax as requested. Please remind patient that is should not be done until at least 04/04/23. Keturah Velasco APRN.MEDICAL REVIEW SPECIALIST Care everywhere shows it was completed 04/03/22 Patient is calling requesting order for Mammography to be placed and faxed to in [place]. Patient states she did complete in 2021 but do not see these reports in [facility]. documented in this encounter [facility] 02-04-2023 History of Present illness Narrative Associated Order(s): Large Joint Arthro/Inj: bilateral knee joints Post-Procedure Diagnose(s): Primary osteoarthritis of both knees Large Joint Arthro/Inj: bilateral knee joints Informed Consent Consent Obtained: Verbal Wadsworth Protocol A moment to CARE was completed. [...] for the pain. documented in this encounter [facility] 10-29-2022 History of Present illness Narrative Associated Order(s): Large Joint Arthro/Inj: bilateral knee joints Post-Procedure Diagnose(s): Primary osteoarthritis of both knees Large Joint Arthro/Inj: bilateral knee joints Informed Consent Consent Obtained: Verbal Wadsworth Protocol A moment to CARE was completed. [...] X-rays done today. documented in this encounter [facility] 10-18-2022 History of Present illness Narrative Patient [...] her knees. Feels much better. Still seeing [facility] for her heart. No bleeding or [...] months and prn. documented in this encounter [facility] 10-15-2022 Miscellaneous Notes Call to pt and notified her of Providers response below, verbalized understanding. Izzy Sullivan Ma ----- Message from Britney Ramos PA-C sent at 10/14/2022 12:28 PM EDT ----- Please let her know labs are stable/ good range. Thanks, Ed Ramos PA-C documented in this encounter [facility] 07-16-2022 History of Present illness Narrative Associated Order(s): Large Joint Arthro/Inj: bilateral knee joints Post-Procedure Diagnose(s): Primary osteoarthritis of both knees; Chronic pain of both knees Breanna Canseco PA-C Department [facility] Orthopaedics [facility] [address] [facility] [address] Dept: [phone] Dept July 16, 2022 CHIEF COMPLAINT: Established [...] knee joints Informed Consent Consent Obtained: Verbal Wadsworth Protocol A moment to CARE was completed. [...] Caffeine This note was partially generated using [employer] voice recognition system, and there may be [...] injection again today. documented in this encounter [facility] 04-19-2022 Miscellaneous Notes Pt called and is notified of providers results and instructions. Pt voices understanding. She reports it's probably because she has a cold and sinus infection, provider just put her on antibiotics yesterday. Gregoria Babulski, RN Labs are ok other than white count is mildly up. Recheck cbc in one month and call if any signs of infection. documented in this encounter [facility] 04-18-2022 Miscellaneous Notes Addended by: ROSALINO CARMONA on: 04/18/2022 11:28 AM Modules accepted: Orders Addended by: LYNTETE WEINSTEIN MA on: 04/18/2022 11:21 AM Modules accepted: Orders documented in this encounter [facility] 04-18-2022 Instructions Rosalino Carmona MD - 04/18/2022 10:39 AM EST Mucinex or coricidin hbp for congestion. documented in this encounter [facility] 04-18-2022 History of Present illness Narrative Patient [...] plan. Rosalino Carmona documented in this encounter [facility] 03-12-2022 Miscellaneous Notes Faxed and patient informed. Cindy Aguiar done Patient is calling requesting PCP place joel screening mammography order and fax to in [place]. documented in this encounter [facility] 03-12-2022 History of Present illness Narrative Associated Order(s): Large Joint Arthro/Inj: bilateral knee joints Post-Procedure Diagnose(s): Primary osteoarthritis of both knees; Chronic pain of both knees Large Joint Arthro/Inj: bilateral knee joints Informed Consent Consent Obtained: Verbal Wadsworth Protocol A moment to CARE was completed. [...] both knees today. documented in this encounter [facility] 12-18-2021 History of Present illness Narrative Associated Order(s): Large Joint Arthro/Inj: bilateral knee joints Post-Procedure Diagnose(s): Chronic pain of both knees; Primary osteoarthritis of both knees Breanna Canseco PA-C Department of Orthopaedics Orthopaedics [address] [place] [address] Dept: [phone] Dept December 18, 2021 CHIEF COMPLAINT: New and Knee Pain of the Left Knee and New and Knee Pain of the Right Knee (Bilateral knee pain- Ref Dr. Carmona- xray 10/14/21) Ms. Tricia Granados is a 81 [...] knee joints Informed Consent Consent Obtained: Verbal Wadsworth Protocol A moment to CARE was completed. [...] Stable degenerative changes as detailed in report. Html Web Developer: SKYLER Transcribe Date/Time: Oct 15 2021 9:25A Dictated [...] anxiety) This note was partially generated using [employer] voice recognition system, and there may be some incorrect words, spellings, and punctuation that were not noted in checking the note before saving. Breanna Canseco PA-C Patient presents with: Left Knee - New, Knee Pain Right Knee - New, Knee Pain: Bilateral knee pain- Ref Dr. Shaggy fonseca 10/14/21 [facility] ROOMING INTAKE FLOWSHEET DATA Risk Screening Do [...] knees during movement. documented in this encounter [facility] 12-18-2021 History of Present illness Narrative Radiology [...] 2021 10:20 AM documented in this encounter [facility] 10-14-2021 History of Present illness Narrative Radiology [...] 2021 8:51 AM documented in this encounter [facility] 10-14-2021 History of Present illness Narrative Patient presents with: 6 Month Exam HPI: Patient presents today for office visit for follow up. HYPERTENSION:no chest pain. Denies palpitations Denies shortness of breath. CARDIO:follows with [facility](Dr. Mchugh) Denies dizziness. PSYCH:oarrs done. Has not filled xanax in some time. Is anxious. Her brother is passing away. He is in [place]. Feels she is doing ok. ANTICOAG:no bleeding [...] Abs Lymph 1.00 - 4.00 k/uL 2.57 King% % 8.2 Abs King <0.87 k/uL 0.71 Eosin% % 3.0 Abs [...] months and prn. documented in this encounter [facility] Evaluation note Diagnosis Paroxysmal atrial fibrillation (HCC)- Primary Atrial fibrillation Primary hypertension Unspecified essential hypertension Stage 3a chronic kidney disease (HCC) Chronic anticoagulation Long-term (current) use of anticoagulants Anxiety Anxiety state, unspecified Chronic pain of both knees [facility] Diagnosis Primary osteoarthritis of both knees- Primary Primary localized osteoarthrosis, lower leg Chronic pain of both knees [facility] Diagnosis Chronic pain of both knees documented in this encounter [facility] note* Diagnosis Chronic pain of both knees- Primary Primary osteoarthritis of both knees Primary localized osteoarthrosis, lower leg [facility] Diagnosis Encounter for screening mammogram for malignant neoplasm of breast- Primary Other screening mammogram [facility] Diagnosis Paroxysmal atrial fibrillation (HCC)- Primary Atrial fibrillation LBBB (left bundle branch block) Other left bundle branch block Primary hypertension Unspecified essential hypertension Stage 3a chronic kidney disease (HCC) Chronic anticoagulation Long-term (current) use of anticoagulants Anxiety Anxiety state, unspecified Bacterial sinusitis Unspecified sinusitis (chronic) [facility] Diagnosis Leukocytosis, unspecified type- Primary [facility] Diagnosis Chronic pain of both knees- Primary Primary osteoarthritis of both knees Primary localized osteoarthrosis, lower leg [facility] Diagnosis Pain in both knees, unspecified chronicity- Primary [facility] Diagnosis Paroxysmal atrial fibrillation (HCC)- Primary Atrial fibrillation Primary hypertension Unspecified essential hypertension Stage 3a chronic kidney disease (HCC) Chronic anticoagulation Long-term (current) use of anticoagulants Anxiety Anxiety state, unspecified [facility] Diagnosis Primary osteoarthritis of both knees- Primary Primary localized osteoarthrosis, lower leg [facility] Diagnosis Encounter for screening mammogram for malignant neoplasm of breast- Primary Other screening mammogram [facility] Diagnosis Primary osteoarthritis of both knees- Primary Primary localized osteoarthrosis, lower leg Chronic pain of both knees [facility] Diagnosis Primary osteoarthritis of both knees- Primary Primary localized osteoarthrosis, lower leg Chronic pain of both knees [facility] Diagnosis Primary osteoarthritis of both knees Primary localized osteoarthrosis, lower leg Chronic pain of both knees [facility] Diagnosis Acute pain of both knees- Primary [facility] Diagnosis Primary osteoarthritis of both knees- Primary Primary localized osteoarthrosis, lower leg Chronic pain of both knees Fall, initial encounter [facility] Diagnosis Acute pain of both knees [facility]* Diagnosis Primary hypertension- Primary Unspecified essential hypertension Paroxysmal atrial fibrillation (HCC) Atrial fibrillation Chronic anticoagulation Long-term (current) use of anticoagulants Anxiety Anxiety state, unspecified Stage 3a chronic kidney disease (HCC) Pain in both knees, unspecified chronicity Epistaxis [facility] Diagnosis Chronic pain of both knees [facility] Diagnosis Anxiety- Primary Anxiety state, unspecified Acute bronchitis, unspecified organism Primary hypertension Unspecified essential hypertension Chronic fatigue Other malaise and fatigue Stage 3a chronic kidney disease (HCC) Chronic anticoagulation Long-term (current) use of anticoagulants Screening for lipid disorders Paroxysmal atrial fibrillation (HCC) Atrial fibrillation Disorder of iron metabolism, unspecified documented in this encounter [facility] note* Diagnosis Primary osteoarthritis of both knees- Primary Primary localized osteoarthrosis, lower leg documented [facility] this encounter [facility]* Diagnosis Screening mammogram for breast cancer- Primary [facility]* Diagnosis Encounter for screening mammogram for malignant neoplasm of breast documented in this encounter [facility] Work Phone: Evaluation note* Diagnosis Paroxysmal atrial fibrillation (HCC)- Primary Atrial fibrillation Primary hypertension Unspecified essential hypertension Stage 3a chronic kidney disease (HCC) Chronic anticoagulation Long-term (current) use of anticoagulants Anxiety Anxiety state, unspecified Screening for depression documented [facility] this encounter [facility]* Diagnosis Acute recurrent maxillary sinusitis- Primary Acute maxillary sinusitis Anxiety Anxiety state, unspecified Primary hypertension Unspecified essential hypertension [facility] Diagnosis Primary osteoarthritis of both knees- Primary Primary localized osteoarthrosis, lower leg [facility] Diagnosis Primary hypertension- Primary Unspecified essential hypertension Paroxysmal atrial fibrillation (HCC) Atrial fibrillation Chronic anticoagulation Long-term (current) use of anticoagulants Anxiety Anxiety state, unspecified Bacterial sinusitis Unspecified sinusitis (chronic) Fatigue, unspecified type documented [facility] this encounter [facility]* Diagnosis Renal insufficiency- Primary Unspecified disorder of kidney and ureter Hypothyroidism, acquired Unspecified hypothyroidism [facility] Diagnosis Hyponatremia- Primary Hyposmolality and/or hyponatremia Hypothyroidism, acquired Unspecified hypothyroidism [facility] Diagnosis Primary osteoarthritis of both knees- Primary Primary localized osteoarthrosis, lower leg [facility] Diagnosis Onset Date Resolution Status Admit Date Essential (primary) hypertension chronic January 08, 2025 10:02am Longstanding persistent atrial fibrillation chronic January 082024 10:02am [facility] Work Phone: Progress note Author Demetrice Greer [facility] Note Date/Time January 08, 2025 10:49am [facility] 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 is with PATTERN MECHANIC) Coding Level of Care Code Off vis,est,level [...] Cosigner Signature: Date (if applicable) CC: ~ Sachse [employer] Work Phone: [employer] for referral (narrative)* Diagnostic Procedure Only (Routine) - Closed Specialty Diagnoses / Procedures Referred By Gissell russell Referred To Contact XR IMAGING Diagnoses Chronic pain of both knees Procedures XR LUMBAR GENERAL 3V AP/LAT/L5-S1 RADEX SPINE LUMBOSACRAL 2/3 VIEWS Breanna Canseco PA-C [address] [place] [address] Xr Imaging Referral ID Status Reason Start Date Expiration Date V isits Requested Visits Authorized [id number] Closed Auto-Generate d Referral 12/18/2021 01/17/2023 1 1 [facility] for referral (narrative)* Diagnostic Procedure Only (Routine) - Closed Specialty Diagnoses / Procedures Referred By Gissell russell Referred To Contact XR IMAGING Diagnoses Chronic pain of both knees Procedures XR LUMBAR GENERAL 3V AP/LAT/L5-S1 RADEX SPINE LUMBOSACRAL 2/3 VIEWS Breanna Canseco PA-C [address] [place] [address] Xr Imaging Referral ID Status Reason Start Date Expiration Date V isits Requested Visits Authorized [id number] Closed Auto-Generate d Referral 12/18/2021 01/17/2023 1 1 [facility] for referral (narrative)* Diagnostic Procedure Only (Routine) - Pending Review Specialty Diagnoses / Procedures Referred By Gissell russell Referred To Contact BR IMAGING Diagnoses Encounter for screening mammogram for malignant neoplasm of breast Procedures MC SCREENING W JOEL SCREENING DIGITAL BREAST TOMOSYNTHESIS BI SCREENING MAMMOGRAPHY BI 2-VIEW BREAST INC CAD Kristine, Rosalino Calloway MD [address] [place] [address] [facility] [address] [place] [address] Referral ID Status Reason Start Date Expiration Date Visits Requested Visits Authorized [id number] Pending Review Auto-Generat ed Referral 2 04/11/2023 1 1 [facility] for referral (narrative)* Diagnostic Procedure Only (Routine) - Pending Review Specialty Diagnoses / Procedures Referred By Gissell russell Referred To Contact XR IMAGING Diagnoses Pain in both knees, unspecified chronicity Procedures XR KNEE GENERAL 4V AP BOTH/PA BOTH/LAT/MERC BILATERAL RADIOLOGIC EXAM KNEE COMPLETE 4/MORE VIEWS Breanna Canseco PA-C [address] [place] [address] Xr Imaging Referral ID Status Reason Start Date Expiration Date Visits Requested Visits Authorized [id number] Pending Review Auto-Generat ed Referral 10/17/2022 11/16/2023 1 1 [facility] for referral (narrative)* Diagnostic Procedure Only (Routine) - Pending Review Specialty Diagnoses / Procedures Referred By Contac t Referred To Contact BR IMAGING Diagnoses Encounter for screening mammogram for malignant neoplasm of breast Procedures MC SCREENING W JOEL SCREENING DIGITAL BREAST TOMOSYNTHESIS BI SCREENING MAMMOGRAPHY BI 2-VIEW BREAST INC CAD Rosalino Carmona MD [address] [place] [address] [facility] [address] [place] [address] Referral ID Status Reason Start Date Expiration Date Visits Requested Visits Authorized [id number] Pending Review Auto-Generat ed Referral 02/25/2023 03/26/2024 1 1 [facility] for referral (narrative)* Diagnostic Procedure Only (Routine) - Closed Specialty Diagnoses / Procedures Referred By Gissell russell Referred To Contact XR IMAGING Diagnoses Primary osteoarthritis of both knees Chronic pain of both knees Procedures XR KNEE GENERAL 4V AP BOTH/PA BOTH/LAT/MERC BILATERAL RADIOLOGIC EXAM KNEE COMPLETE 4/MORE VIEWS Breanna Canseco PA-C [address] [place] [address] [place] [address] Referral ID Status Reason Start Date Expiration Date V isits Requested Visits Authorized [id number] Closed Auto-Generate d Referral 11/25/2023 12/24/2024 1 1 [facility] for referral (narrative)* Diagnostic Procedure Only (Routine) - New Request Specialty Diagnoses / Procedures Referred By Gissell russell Referred To Contact XR IMAGING Diagnoses Acute pain of both knees Procedures XR KNEE GENERAL 4V AP BOTH/PA BOTH/LAT/MERC BILATERAL RADIOLOGIC EXAM KNEE COMPLETE 4/MORE VIEWS Breanna Canseco PA-C [address] [place] [address] [place] [address] Referral ID Status Reason Start Date Expiration Date Visits Requested Visits Authorized [id number] New Request Auto-Generat ed Referral 12/25/2023 01/23/2025 1 1 [facility] for referral (narrative)* Diagnostic Procedure Only (Routine) - Closed Specialty Diagnoses / Procedures Referred By Gissell russell Referred To Contact XR IMAGING Diagnoses Acute pain of both knees Procedures XR KNEE GENERAL 4V AP BOTH/PA BOTH/LAT/MERC BILATERAL RADIOLOGIC EXAM KNEE COMPLETE 4/MORE VIEWS Breanna Canseco PA-C [facility] [place] [address] [place] [address] Referral ID Status Reason Start Date Expiration Date V isits Requested Visits Authorized [id number] Closed Auto-Generate d Referral 12/25/2023 01/23/2025 1 1 [facility] (narrative)* Diagnostic Procedure Only (Routine) - Closed Specialty Diagnoses / Procedures Referred By Gissell russell Referred To Contact XR IMAGING Diagnoses Chronic pain of both knees Procedures XR KNEE GENERAL 4V AP BOTH/PA BOTH/LAT/MERC BILATERAL RADIOLOGIC EXAM KNEE COMPLETE 4/MORE VIEWS Rosalino Carmona MD [facility] [place] [address] Xr Imaging [facility] Referral ID Status Reason Start Date Expiration Date V isits Requested Visits Authorized [id number] Closed Auto-Generate d Referral 10/14/2021 11/13/2022 1 1 [facility] for referral (narrative)* Diagnostic Procedure Only (Routine) - New Request Specialty Diagnoses / Procedures Referred By Gissell russell Referred To Contact BR IMAGING Diagnoses Screening mammogram for breast cancer Procedures MC SCREENING W JOEL SCREENING DIGITAL BREAST TOMOSYNTHESIS BI SCREENING MAMMOGRAPHY BI 2-[place] [address] [place] [address] [facility] [address] [place] [address] Referral ID Status Reason Start Date Expiration Date Visits Requested Visits Authorized [id number] New Request Auto-Generat ed Referral 03/25/2024 04/24/2025 1 1 [facility] (narrative)No reason for referral information availableSt[facility] N[facility]* Diagnostic Procedure Only (Routine) - Closed Specialty Diagnoses / Procedures Referred By Contac t Referred To Contact XR IMAGING Diagnoses Chronic pain of both knees Procedures XR LUMBAR GENERAL 3V AP/LAT/L5-S1 RADEX SPINE LUMBOSACRAL 2/3 VIEWS Vetovitz, Breanna, PA-C [address] [place] [address] Xr Imaging Referral ID Status Reason Start Date Expiration Date V isits Requested Visits Authorized [id number] Closed Auto-Generate d Referral 12/18/2021 01/17/2023 1 1 [facility] for visit Narrative* Diagnostic Procedure Only (Routine) - Closed Specialty Diagnoses / Procedures Referred By Contac t Referred To Contact XR IMAGING Diagnoses Primary osteoarthritis of both knees Chronic pain of both knees Procedures XR KNEE GENERAL 4V AP BOTH/PA BOTH/LAT/MERC BILATERAL RADIOLOGIC EXAM KNEE COMPLETE 4/MORE VIEWS Vetovilawanda, Breanna, PA-C [address] [place] [address] [place] [address] Referral ID Status Reason Start Date Expiration Date V isits Requested Visits Authorized [id number] Closed Auto-Generate d Referral 11/25/2023 12/24/2024 1 1 [facility] for visit Narrative* Diagnostic Procedure Only (Routine) - Closed Specialty Diagnoses / Procedures Referred By Contac t Referred To Contact XR IMAGING Diagnoses Acute pain of both knees Procedures XR KNEE GENERAL 4V AP BOTH/PA BOTH/LAT/MERC BILATERAL RADIOLOGIC EXAM KNEE COMPLETE 4/MORE VIEWS Vetovitz, Breanna, PA-C [address] [place] [address] [place] [address] Referral ID Status Reason Start Date Expiration Date V isits Requested Visits Authorized [id number] Closed Auto-Generate d Referral 12/25/2023 01/23/2025 1 1 [facility] for visit Narrative* Diagnostic Procedure Only (Routine) - Closed Specialty Diagnoses / Procedures Referred By Contac t Referred To Contact XR IMAGING Diagnoses Chronic pain of both knees Procedures XR KNEE GENERAL 4V AP BOTH/PA BOTH/LAT/MERC BILATERAL RADIOLOGIC EXAM KNEE COMPLETE 4/MORE VIEWS Rosalino Carmona MD [address] [place] [address] [place] [address] Referral ID Status Reason Start Date Expiration Date V isits Requested Visits Authorized [id number] Closed Auto-Generate d Referral 10/14/2021 11/13/2022 1 1 [facility] for visit Narrative* Imaging (Routine) - Authorized Specialty Diagnoses / Procedures Referred By Gissell t Referred To Contact Radiology Diagnoses Encounter for screening mammogram for malignant neoplasm of breast Procedures BI mammo bilateral screening tomosynthesis Rosalino Carmona MD [address] [place] [address] Phone: tel: fax: Referral ID Status Reason Start Date Expiration Date Visits Requested Visits Authorized [id number] Authorized Perform Procedure 03/27/2024 03/27/2025 1 1 [facility] Work Phone: Summary Purpose Family History No [...] Referral Specialty Diagnoses / Procedures Referred By Tanac t Referred To Contact Orthopedics Diagnoses Chronic pain of both knees Procedures CONSULT TO ORTHOPAEDICS OFFICE/OUTPATIENT NEW HIGH MDM 60-74 MINUTES Rosalino Carmona MD [address] [place] [address] Referral ID Status Reason Start Date Expiration Date Visits Requested Visits Authorized [id number] Authorized PCP Requested Referral 10/14/2021 10/14/2022 1 1 Specialty Diagnoses / Procedures Referred By Contac t Referred To Contact XR IMAGING Diagnoses Chronic pain of both knees Procedures XR KNEE GENERAL 4V AP BOTH/PA BOTH/LAT/MERC BILATERAL RADIOLOGIC EXAM KNEE COMPLETE 4/MORE VIEWS Rosalino Carmona MD [address] [place] [address] Xr Imaging Referral ID Status Reason Start Date Expiration Date V isits Requested Visits Authorized [id number] Closed Auto-Generate d Referral 10/14/2021 11/13/2022 1 1 Specialty Diagnoses / Procedures Referred By Contleyda t Referred To Contact Diagnoses Anxiety Daquan, Orquidea Marcus, SCREEN PRINTING STENCIL PREPARER.MEDICAL REVIEW SPECIALIST [address] [place] [address] Referral ID Status Reason Start Date Expiration Date Visits Re quested Visits Authorized [id number] Closed 1 1 Medications Administered Section Inactive [...] Visit Admit Date Essential (primary) hypertension Septemb 2024 10:02am Longstanding persistent atrial fibrillat ion January 08, 2025 10:02am Additional Source Comments INFORMATION SOURCE (unrecogn ized section and content) DATE CREATED AUTHOR 12/16/2017 [facility] DATE CREATED AUTHOR AUTHOR'S ORGANIZ ATION 01/02/2019 [facility] DATE CREATED AUTHOR AUTHOR'S ORGANIZ ATION 04/11/2022 [facility] DATE CREATED AUTHOR AUTHOR'S ORGANIZ ATION 12/27/2023 [facility] DATE CREATED AUTHOR AUTHOR'S ORGANIZ ATION 04/13/[address] [facility] DATE CREATED AUTHOR AUTHOR'S ORGANIZ ATION 01/09/[address] [facility] DATE CREATED AUTHOR AUTHOR'S ORGANBRONWYN ATION 02/12/2025 [facility] Source Comments (unrecognize d section and content) In the event this informatio n is protected by the Federal Confidentiality of Alcohol and Drug Abuse Patient Records regulations: The Federal rules restrict any use of the information to criminally investigate or prosecute any alcohol or drug abuse patient.[facility] the event this information is protected by the Federal Confidentiality of Alcohol and Drug Abuse Patient Records regulations: The Federal rules restrict any use of the information to criminally investigate or prosecute any alcohol or drug abuse patient.[facility] CenterIn the event this information is protected by the Federal Confidentiality of Alcohol and Drug Abuse Patient Records regulations: The Federal rules restrict any use of the information to criminally investigate or prosecute any alcohol or drug abuse patient.[facility] CenterIn the event this information is protected by the Federal Confidentiality of Alcohol and Drug Abuse Patient Records regulations: The Federal rules restrict any use of the information to criminally investigate or prosecute any alcohol or drug abuse patient.[facility] CenterIn the event this information is protected by the Federal Confidentiality of Alcohol and Drug Abuse Patient Records regulations: The Federal rules restrict any use of the information to criminally investigate or prosecute any alcohol or drug abuse patient.[facility] CenterIn the event this information is protected by the Federal Confidentiality of Alcohol and Drug Abuse Patient Records regulations: The Federal rules restrict any use of the information to criminally investigate or prosecute any alcohol or drug abuse patient.[facility] CenterIn the event this information is protected by the Federal Confidentiality of Alcohol and Drug Abuse Patient Records regulations: The Federal rules restrict any use of the information to criminally investigate or prosecute any alcohol or drug abuse patient.[facility] CenterIn the event this information is protected by the Federal Confidentiality of Alcohol and Drug Abuse Patient Records regulations: The Federal rules restrict any use of the information to criminally investigate or prosecute any alcohol or drug abuse patient.[facility] CenterIn the event this information is protected by the Federal Confidentiality of Alcohol and Drug Abuse Patient Records regulations: The Federal rules restrict any use of the information to criminally investigate or prosecute any alcohol or drug abuse patient.[facility] CenterIn the event this information is protected by the Federal Confidentiality of Alcohol and Drug Abuse Patient Records regulations: The Federal rules restrict any use of the information to criminally investigate or prosecute any alcohol or drug abuse patient.[facility] CenterIn the event this information is protected by the Federal Confidentiality of Alcohol and Drug Abuse Patient Records regulations: The Federal rules restrict any use of the information to criminally investigate or prosecute any alcohol or drug abuse patient.[facility] CenterIn the event this information is protected by the Federal Confidentiality of Alcohol and Drug Abuse Patient Records regulations: The Federal rules restrict any use of the information to criminally investigate or prosecute any alcohol or drug abuse patient.[facility] CenterIn the event this information is protected by the Federal Confidentiality of Alcohol and Drug Abuse Patient Records regulations: The Federal rules restrict any use of the information to criminally investigate or prosecute any alcohol or drug abuse patient.[facility] CenterIn the event this information is protected by the Federal Confidentiality of Alcohol and Drug Abuse Patient Records regulations: The Federal rules restrict any use of the information to criminally investigate or prosecute any alcohol or drug abuse patient.[facility] CenterIn the event this information is protected by the Federal Confidentiality of Alcohol and Drug Abuse Patient Records regulations: The Federal rules restrict any use of the information to criminally investigate or prosecute any alcohol or drug abuse patient.[facility] CenterIn the event this information is protected by the Federal Confidentiality of Alcohol and Drug Abuse Patient Records regulations: The Federal rules restrict any use of the information to criminally investigate or prosecute any alcohol or drug abuse patient.[facility] CenterIn the event this information is protected by the Federal Confidentiality of Alcohol and Drug Abuse Patient Records regulations: The Federal rules restrict any use of the information to criminally investigate or prosecute any alcohol or drug abuse patient.[facility] CenterIn the event this information is protected by the Federal Confidentiality of Alcohol and Drug Abuse Patient Records regulations: The Federal rules restrict any use of the information to criminally investigate or prosecute any alcohol or drug abuse patient.[facility] CenterIn the event this information is protected by the Federal Confidentiality of Alcohol and Drug Abuse Patient Records regulations: The Federal rules restrict any use of the information to criminally investigate or prosecute any alcohol or drug abuse patient.[facility] CenterIn the event this information is protected by the Federal Confidentiality of Alcohol and Drug Abuse Patient Records regulations: The Federal rules restrict any use of the information to criminally investigate or prosecute any alcohol or drug abuse patient.[facility] CenterIn the event this information is protected by the Federal Confidentiality of Alcohol and Drug Abuse Patient Records regulations: The Federal rules restrict any use of the information to criminally investigate or prosecute any alcohol or drug abuse patient.[facility] CenterIn the event this information is protected by the Federal Confidentiality of Alcohol and Drug Abuse Patient Records regulations: The Federal rules restrict any use of the information to criminally investigate or prosecute any alcohol or drug abuse patient.[facility] CenterIn the event this information is protected by the Federal Confidentiality of Alcohol and Drug Abuse Patient Records regulations: The Federal rules restrict any use of the information to criminally investigate or prosecute any alcohol or drug abuse patient.[facility] CenterIn the event this information is protected by the Federal Confidentiality of Alcohol and Drug Abuse Patient Records regulations: The Federal rules restrict any use of the information to criminally investigate or prosecute any alcohol or drug abuse patient.[facility] CenterIn the event this information is protected by the Federal Confidentiality of Alcohol and Drug Abuse Patient Records regulations: The Federal rules restrict any use of the information to criminally investigate or prosecute any alcohol or drug abuse patient.[facility] CenterIn the event this information is protected by the Federal Confidentiality of Alcohol and Drug Abuse Patient Records regulations: The Federal rules restrict any use of the information to criminally investigate or prosecute any alcohol or drug abuse patient.[facility] CenterIn the event this information is protected by the Federal Confidentiality of Alcohol and Drug Abuse Patient Records regulations: The Federal rules restrict any use of the information to criminally investigate or prosecute any alcohol or drug abuse patient.[facility] CenterIn the event this information is protected by the Federal Confidentiality of Alcohol and Drug Abuse Patient Records regulations: The Federal rules restrict any use of the information to criminally investigate or prosecute any alcohol or drug abuse patient.[facility] CenterIn the event this information is protected by the Federal Confidentiality of Alcohol and Drug Abuse Patient Records regulations: The Federal rules restrict any use of the information to criminally investigate or prosecute any alcohol or drug abuse patient.[facility] CenterIn the event this information is protected by the Federal Confidentiality of Alcohol and Drug Abuse Patient Records regulations: The Federal rules restrict any use of the information to criminally investigate or prosecute any alcohol or drug abuse patient.[facility] CenterIn the event this information is protected by the Federal Confidentiality of Alcohol and Drug Abuse Patient Records regulations: The Federal rules restrict any use of the information to criminally investigate or prosecute any alcohol or drug abuse patient.[facility] CenterIn the event this information is protected by the Federal Confidentiality of Alcohol and Drug Abuse Patient Records regulations: The Federal rules restrict any use of the information to criminally investigate or prosecute any alcohol or drug abuse patient.[facility] CenterIn the event this information is protected by the Federal Confidentiality of Alcohol and Drug Abuse Patient Records regulations: The Federal rules restrict any use of the information to criminally investigate or prosecute any alcohol or drug abuse patient.[facility] CenterIn the event this information is protected by the Federal Confidentiality of Alcohol and Drug Abuse Patient Records regulations: The Federal rules restrict any use of the information to criminally investigate or prosecute any alcohol or drug abuse patient.[facility] CenterIn the event this information is protected by the Federal Confidentiality of Alcohol and Drug Abuse Patient Records regulations: The Federal rules restrict any use of the information to criminally investigate or prosecute any alcohol or drug abuse patient.[facility] CenterIn the event this information is protected by the Federal Confidentiality of Alcohol and Drug Abuse Patient Records regulations: The Federal rules restrict any use of the information to criminally investigate or prosecute any alcohol or drug abuse patient.[facility] CenterIn the event this information is protected by the Federal Confidentiality of Alcohol and Drug Abuse Patient Records regulations: The Federal rules restrict any use of the information to criminally investigate or prosecute any alcohol or drug abuse patient.[facility] CenterIn the event this information is protected by the Federal Confidentiality of Alcohol and Drug Abuse Patient Records regulations: The Federal rules restrict any use of the information to criminally investigate or prosecute any alcohol or drug abuse patient.[facility] CenterIn the event this information is protected by the Federal Confidentiality of Alcohol and Drug Abuse Patient Records regulations: The Federal rules restrict any use of the information to criminally investigate or prosecute any alcohol or drug abuse patient.[facility] CenterIn the event this information is protected by the Federal Confidentiality of Alcohol and Drug Abuse Patient Records regulations: The Federal rules restrict any use of the information to criminally investigate or prosecute any alcohol or drug abuse patient.[facility] CenterIn the event this information is protected by the Federal Confidentiality of Alcohol and Drug Abuse Patient Records regulations: The Federal rules restrict any use of the information to criminally investigate or prosecute any alcohol or drug abuse patient.[facility] CenterIn the event this information is protected by the Federal Confidentiality of Alcohol and Drug Abuse Patient Records regulations: The Federal rules restrict any use of the information to criminally investigate or prosecute any alcohol or drug abuse patient.[facility] CenterIn the event this information is protected by the Federal Confidentiality of Alcohol and Drug Abuse Patient Records regulations: The Federal rules restrict any use of the information to criminally investigate or prosecute any alcohol or drug abuse patient.[facility] CenterIn the event this information is protected by the Federal Confidentiality of Alcohol and Drug Abuse Patient Records regulations: The Federal rules restrict any use of the information to criminally investigate or prosecute any alcohol or drug abuse patient.[facility] CenterIn the event this information is protected by the Federal Confidentiality of Alcohol and Drug Abuse Patient Records regulations: The Federal rules restrict any use of the information to criminally investigate or prosecute any alcohol or drug abuse patient.[facility] CenterIn the event this information is protected by the Federal Confidentiality of Alcohol and Drug Abuse Patient Records regulations: The Federal rules restrict any use of the information to criminally investigate or prosecute any alcohol or drug abuse patient.[facility] CenterIn the event this information is protected by the Federal Confidentiality of Alcohol and Drug Abuse Patient Records regulations: The Federal rules restrict any use of the information to criminally investigate or prosecute any alcohol or drug abuse patient.[facility] Reason for Visit (unrecogniz ed section and content) Reason Comments 6 Month Exam Reason Comments New Knee Pain New Bilateral knee pain- Ref Dr. Shaggy fonseca 10/14/21 Knee Pain Bilateral knee pain- Ref Dr. Shaggy fonseca 10/14/21 Specialty Diagnoses / Procedures Referred By Contac t Referred To Contact Orthopedics Diagnoses Chronic pain of both knees Procedures CONSULT TO ORTHOPAEDICS OFFICE/OUTPATIENT NEW HIGH MDM 60-74 MINUTES Rosalino Carmona MD [address] [place] [address] Referral ID Status Reason Start Date Expiration Date V isits Requested Visits Authorized [id number] Closed PCP Requested Referral 10/14/2021 10/14/2022 1 [...] Pain Established Patient Reason Comments Hospital F[facility] Follow up Reason Comments Insurance Authorization hydroxyzine Reason Onset Date Comments Transition Of Care 12/31/2023 [facility] Follow-up Day 18 Reason Onset Date Comments Transition Of Care 01/07/2024 [facility] [place] [facility] Follow-up Day 15 Reason Comments Patient Question Reason Onset Date Comments Transition Of Care 01/14/2024 [facility] [place] [facility] Follow-up Day 22 Reason Comments [...] Care Teams (unrecognized sec tion and content) Injection Molding Machine Operator Relationship Specialty Start Date End Date Rosalino Carmona MD [address] [place] [address] PCP - General Family Practice 02/17/18 Injection Molding Machine Operator Relationship Specialty Start Date End Date Rosalino Carmona MD [address] [place] [address] PCP - General Family Practice 02/17/18 Injection Molding Machine Operator Relationship Specialty Start Date End Date Rosalino Carmona MD [address] [place] [address] PCP - General Family Practice 02/17/18 Injection Molding Machine Operator Relationship Specialty Start Date End Date Rosalino Carmona MD [address] [place] [address] PCP - General Family Medicine 02/17/18 Injection Molding Machine Operator Relationship Specialty Start Date End Date Rosalino Carmona MD [address] [place] [address] PCP - General Family Medicine 02/17/18 Injection Molding Machine Operator Relationship Specialty Start Date End Date Rosalino Carmona MD [address] [place] [address] PCP - General Family Medicine 02/17/18 Injection Molding Machine Operator Relationship Specialty Start Date End Date Rosalino Carmona MD [address] [facility] [place] [address] PCP - General Family Medicine 02/17/18 Injection Molding Machine Operator Relationship Specialty Start Date End Date Rosalino Carmona MD [address] [facility] [place] [address] PCP - General Family Medicine 02/17/18 Injection Molding Machine Operator Relationship Specialty Start Date End Date Rosalino Carmona MD [address] [facility] [place] [address] PCP - General Family Medicine 02/17/18 Injection Molding Machine Operator Relationship Specialty Start Date End Date Rosalino Carmona MD [address] [facility] [place] [address] PCP - General Family Medicine 02/17/18 Injection Molding Machine Operator Relationship Specialty Start Date End Date Rosalino Carmona MD [address] [facility] [place] [address] PCP - General Family Medicine 02/17/18 Injection Molding Machine Operator Relationship Specialty Start Date End Date Rosalino Carmona MD [address] [facility] [place] [address] PCP - General Family Medicine 02/17/18 Injection Molding Machine Operator Relationship Specialty Start Date End Date Rosalino Carmona MD [address] [facility] [place] [address] PCP - General Family Medicine 02/17/18 Injection Molding Machine Operator Relationship Specialty Start Date End Date Rosalino Carmona MD [address] [facility] [place] [address] PCP - General Family Medicine 02/17/18 Injection Molding Machine Operator Relationship Specialty Start Date End Date Rosalino Carmona MD [address] [place] [address] PCP - General Family Medicine 02/17/18 Injection Molding Machine Operator Relationship Specialty Start Date End Date Rosalino Carmona MD [address] [place] [address] PCP - General Family Medicine 02/17/18 Injection Molding Machine Operator Relationship Specialty Start Date End Date Rosalino Carmona MD [address] [place] [address] PCP - General Family Medicine 02/17/18 Injection Molding Machine Operator Relationship Specialty Start Date End Date Rosalino Carmona MD [address] [place] [address] PCP - General Family Medicine 02/17/18 Injection Molding Machine Operator Relationship Specialty Start Date End Date Rosalino Carmona MD [address] [place] [address] PCP - General Family Medicine 02/17/18 Cherelle Rush, FERCHO [address] [place] [address] Primary Care Ict Customer Support Officer 12/24/23 Injection Molding Machine Operator Relationship Specialty Start Date End Date Rosalino Carmona MD [address] [place] [address] PCP - General Family Medicine 02/17/18 Cherelle Rush, FERCHO [address] [place] [address] Primary Care Ict Customer Support Officer 12/24/23 Injection Molding Machine Operator Relationship Specialty Start Date End Date Rosalino Carmona MD [address] [place] [address] PCP - General Family Medicine 02/17/18 Cherelle Rush, RN [address] [facility] [place] [address] Primary Care Ict Customer Support Officer 12/24/23 Injection Molding Machine Operator Relationship Specialty Start Date End Date Rosalino Carmona MD [address] [facility] [address] PCP - General Family Medicine 02/17/18 Cherelle Rush, RN [address] [facility] [place] [address] Primary Care Ict Customer Support Officer 12/24/23 Injection Molding Machine Operator Relationship Specialty Start Date End Date Rosalino Carmona MD [address] [place] [address] PCP - General Family Medicine 02/17/18 Cherelle Rush, RN [address] [facility] [place] [address] Primary Care Ict Customer Support Officer 12/24/23 Injection Molding Machine Operator Relationship Specialty Start Date End Date Rosalino Carmona MD [address] [place] [address] PCP - General Family Medicine 02/17/18 Cherelle Rush, RN [address] [facility] [place] [address] Primary Care Ict Customer Support Officer 12/24/23 Injection Molding Machine Operator Relationship Specialty Start Date End Date Rosalino Carmona MD [address] [place] [address] PCP - General Family Medicine 02/17/18 Cherelle Rush, RN [address] [facility] [place] [address] Primary Care Ict Customer Support Officer 12/24/23 Injection Molding Machine Operator Relationship Specialty Start Date End Date Rosalino Carmona MD [address] [place] [address] PCP - General Family Medicine 02/17/18 Cherelle Rush, FERCHO [address] [place] [address] Primary Care Ict Customer Support Officer 12/24/23 Injection Molding Machine Operator Relationship Specialty Start Date End Date Rosalino Carmona MD [address] [place] [address] PCP - General Family Medicine 02/17/18 Injection Molding Machine Operator Relationship Specialty Start Date End Date Rosalino Carmona MD [address] [place] [address] PCP - General Family Medicine 02/17/18 Injection Molding Machine Operator Relationship Specialty Start Date End Date Rosalino Carmona MD [address] [place] [address] PCP - General Family Medicine 02/17/18 Injection Molding Machine Operator Relationship Specialty Start Date End Date Rosalnio Carmona MD [address] [place] [address] PCP - General Family Medicine 02/17/18 Injection Molding Machine Operator Relationship Specialty Start Date End Date Rosalino Carmona MD [address] [place] [address] PCP - General Family Medicine 02/17/18 Injection Molding Machine Operator Relationship Specialty Start Date End Date Rosalino Carmona MD [address] [place] [address] PCP - General Family Medicine 02/17/18 Keturah Velasco APRN.MEDICAL REVIEW SPECIALIST [address] [place] [address] Chemical Reclamation Equipment Operator Family Medicine 03/30/24 Orquidea Robertson APRN.MEDICAL REVIEW SPECIALIST [address] [facility] [place] [address] Chemical Reclamation Equipment Operator Family Medicine 03/30/24 Injection Molding Machine Operator Relationship Specialty Start Date End Date Rosalino Carmona MD [address] [facility] [place] [address] PCP - General 04/22/20 Injection Molding Machine Operator Relationship Specialty Start Date End Date Rosalino Carmona MD [address] [facility] [place] [address] PCP - General Family Medicine 02/17/18 Keturah Velasco APRN.MEDICAL REVIEW SPECIALIST [address] [facility] [place] [address] Chemical Reclamation Equipment Operator Family Medicine 03/30/24 Orquidea Robertson APRN.MEDICAL REVIEW SPECIALIST [address] [facility] [place] [address] Chemical Reclamation Equipment Operator Family Medicine 03/30/24 Injection Molding Machine Operator Relationship Specialty Start Date End Date Rosalino Carmona MD [address] [facility] [place] [address] PCP - General Family Medicine 02/17/18 Keturah Velasco APRN.MEDICAL REVIEW SPECIALIST [address] [facility] [place] [address] Chemical Reclamation Equipment Operator Family Medicine 03/30/24 Orquidea Robertson APRN.MEDICAL REVIEW SPECIALIST [address] [facility] [place] [address] Chemical Reclamation Equipment Operator Family Medicine 03/30/24 Injection Molding Machine Operator Relationship Specialty Start Date End Date Rosalino Carmona MD [address] [facility] [place] [address] PCP - General Family Medicine 02/17/18 Keturah Velasco APRN.MEDICAL REVIEW SPECIALIST [address] [place] [address] Chemical Reclamation Equipment Operator Family [facility] 03/30/24 Orquidea Robertson APRN.MEDICAL REVIEW SPECIALIST [address] [place] [address] Chemical Reclamation [facility] 03/30/24 Injection Molding Machine Operator Relationship Specialty Start Date End Date Rosalino Carmona MD [address] [place] [address] PCP - General Family Medicine 02/17/18 Keturah Velasco APRN.MEDICAL REVIEW SPECIALIST [address] [place] [address] Chemical Reclamation Equipment Operator Family Medicine 03/30/24 Orquidea Robertson APRN.MEDICAL REVIEW SPECIALIST [address] [place] [address] Chemical Reclamation [facility] 03/30/24 Injection Molding Machine Operator Relationship Specialty Start Date End Date Rosalino Carmona MD [address] [place] [address] PCP - General Family Medicine 02/17/18 Keturah Velasco APRN.MEDICAL REVIEW SPECIALIST [address] [place] [address] Chemical Reclamation Equipment Operator Family Medicine 03/30/24 Orquidea Robertson APRN.MEDICAL REVIEW SPECIALIST [address] [place] [address] Chemical Reclamation Equipment [facility] 03/30/24 Injection Molding Machine Operator Relationship Specialty Start Date End Date Rosalino Carmona MD [address] [facility] [place] [address] PCP - General Family Medicine 02/17/18 Keturah Velasco SCREEN PRINTING STENCIL PREPARER.MEDICAL REVIEW SPECIALIST [address] [place] [address] Chemical Reclamation Equipment Operator Family Medicine 03/30/24 Orquidea Robertson SCREEN PRINTING STENCIL PREPARER.MEDICAL REVIEW SPECIALIST [address] [place] [address] [facility] 03/30/24 Injection Molding Machine Operator Relationship Specialty Start Date End Date Rosalino Carmona MD [address] [place] [address] PCP - General Family Medicine 02/17/18 Keturah Velasco SCREEN PRINTING STENCIL PREPARER.MEDICAL REVIEW SPECIALIST [address] [place] [address] Chemical Reclamation [facility] 03/30/24 Orquidea Robertson SCREEN PRINTING STENCIL PREPARER.MEDICAL REVIEW SPECIALIST [address] [place] [address] Chemical Reclamation [facility] 03/30/24 Injection Molding Machine Operator Relationship Specialty Start Date End Date Rosalino Carmona MD [address] [place] [address] PCP - General Family Medicine 02/17/18 Keturah Velasco, SCREEN PRINTING STENCIL PREPARER.MEDICAL REVIEW SPECIALIST [address] [place] [address] Chemical Reclamation Equipment Operator Family Medicine 03/30/24 Orquidea Robertson APRN.[facility] [address] [place] [address] Chemical Reclamation Equipment OperatorWe[facility] 03/30/24 Team Status: Active Member Role/Relationship Status [...] BE BASED ON THE PRIMARY CLINICAL RECORDS. [employer] provides no warranty or guarantee of the accuracy or completeness of information in this document.
[2025-03-26 03:59] LABS: Allen Test Positive; Base Excess -9 mmol/L (-2 to +2); FI02 60.0; PEEP 8; PO2 56 mmHG (75-100); RR 14; SITE R Radial; SO2 91 % (94-98)
[2025-03-26 04:02] LABS: Differential Indicated SCAN CRITERIA MET
[2025-03-26 04:05] LABS: Prothrombin Time (Protime)PT. 25.0 SECONDS (11.7-14.9)
--- NOTE | 2025-03-26 04:05 | CT_ITS ---
PROCEDURE: CTA CHEST W/WO CONTRAST 03/26/2025 REASON FOR EXAM: HYPOXIA RECENT PNEUMONIA TECHNIQUE: Procedure Code: [id number] Modality: CT Procedure: CTA CHEST W/WO CONTRAST Multiplanar Sagittal and Coronal images were obtained. CONTRAST: Isovue 370 VOLUME: 100 mL One or more dose reduction techniques were used (e.g., Automated exposure control, adjustment of the mA and/or kV according to patient size, use of iterative reconstruction technique). RADIATION DOSE SUMMARY: CTDlvol: 15.07 mGy DLP: 484 mGycm COMPARISON: Chest radiograph on 03/26/2025. FINDINGS: Moderate cardiomegaly. Moderate interstitial congestion/edema. Moderate alveolar pulmonary edema. Moderate bilateral pleural effusions. Passive atelectatic airspace disease of the lower lobes. Bilateral widespread ground-glass densities of the lungs, possibly alveolar edema and/or widespread changes of pneumonia. This is more prominent in the central perihilar zones. Mildly prominent mediastinal and hilar lymph nodes with the largest measuring 3.2 cm, probably reactive. Normal enhancement of the main pulmonary artery and right and left pulmonary arteries. Normal enhancement of the bilateral peripheral pulmonary arteries. There is no demonstrated pulmonary embolism. Normal thoracic aorta and visualized great vessels. There is no demonstrated aortic dissection. Normal pericardium. Normal visualized trachea and bronchi. Normal visualized upper abdomen. CT/CTA Chest W/WO Contrast IMPRESSION: Moderate cardiomegaly. Moderate interstitial congestion/edema. Moderate alveolar pulmonary edema. Moderate bilateral pleural effusions. Passive atelectatic airspace disease of the lower lobes. Bilateral widespread ground-glass densities of the lungs, possibly alveolar colten ma and/or widespread changes of pneumonia. This is more prominent in the central perihilar zones. Mildly prominent mediastinal and hilar lymph nodes with the largest measuring 3 .2 cm, probably reactive. No CT evidence of pulmonary embolus or aortic dissection. Reading [facility]
[2025-03-26 04:06] LABS: Partial Thromboplast Time 49.8 Seconds (24.1-36.2)
--- NOTE | 2025-03-26 04:10 | RAD_ITS ---
PROCEDURE: CHEST 1 VIEW (PORTABLE) 03/26/2025 REASON FOR EXAM: HYPOXIA TECHNIQUE: Frontal view of the chest. COMPARISON: CT angiography on 03/26/2025. FINDINGS: Unchanged bilateral pleural effusions. Unchanged passive atelectatic airspace disease of the lower lobes. Unchanged interstitial and alveolar pulmonary edema. Unchanged bilateral central perihilar airspace opacities of the lungs, probably pulmonary edema and/or pneumonia. Enlarged cardiac silhouette. Normal mediastinum and leno. Normal visualized pulmonary arteries. Atheromatous plaques of the visualized aortic arch and descending thoracic aorta. Diffuse spondylosis of the visualized thoracic spine. Normal visualized ribs, clavicles. Degenerative joint disease. There is no demonstrated abnormality of the visualized soft tissue structures of the upper abdomen. RAD/Chest 1 View (Portable) IMPRESSION: Unchanged bilateral pleural effusions. Unchanged passive atelectatic airspace disease of the lower lobes. Unchanged interstitial and alveolar pulmonary edema. Unchanged bilateral central perihilar airspace opacities of the lungs, probably pulmonary edema and/or pneumonia. Enlarged cardiac silhouette. Reading Location[facility]
[2025-03-26 04:14] LABS: Troponin T High Sensitivity 22 ng/L (<=14)
[2025-03-26] MEDS: Piperacil/Tazobactam 4.5 GM in 0.9% Normal Saline (100mL MB+) 100 ML IV (04:16)
[2025-03-26] MEDS: 0.9% Normal Saline (500mL Bag) 500 ML 999 ML IV (04:31)
--- NOTE | 2025-03-26 04:37 | CPS ---
[0415] AVAPS changed to ST at this time due to pt.'s PCO2 of 25. Physician agreeable to the changes.
--- NOTE | 2025-03-26 04:39 | CPS ---
[0415] Pt. placed on AVAPS settings due to suspicion of hypercapnia on presentation. Pt.'s PCO2 was 22. AVAPS changed to ST after ABG results given to physician. Physician agreeable to 02/02 at this time.
[2025-03-26 04:40] LABS: AST(SGOT) 18 U/L (<=31); Alanine Aminotransfer ALT/SGPT 12 U/L (<=34); Albumin, Serum 3.5 g/dL (3.4-4.8); Alkaline Phosphatase 88 U/L (35-104); Anion Gap 16 (5-15); BUN 15 mg/dL (4-19); BUN/Creat Ratio 12.5 RATIO (10-20); Calcium,Total 9.0 mg/dL (7.6-11.0); Carbon Dioxide 14.8 mmol/L (21.0-32.0); Chloride 98 mmol/L (98-108); Estimated Creatinine Clearance 39.02 ml/min (50-250); Globulin 3.5 g/dL (2.2-4.2); Glucose 183 mg/dL (70-99); Potassium 3.9 mmol/L (3.3-5.1)
[2025-03-26] MEDS: Vancomycin HCl 2,000 MG in 0.9% Normal Saline (500mL Bag) 500 ML 250 MG IV (05:02)
--- NOTE | 2025-03-26 05:15 | ED.VIS.DYS ---
HPI History of Present Illness Chief Complaint: Shortness of Breath Narrative Narrative: Patient was seen and examined after presenting to ED for shortness of breath patient was recently started on antibiotics for an illness she was on Augmentin and azithromycin patient coming in feeling generally unwell but having shortness of breath and requiring supplemental oxygen coming from home she was brought in by private car she had a pulse ox with a good waveform in the 40% range. [facility] Medical History Paroxysmal A-fib Chronic anticoagulation Longstanding persistent atrial fibrillation Left bundle branch block (LBBB) Obesity Paroxysmal atrial fibrillation Essential (primary) hypertension Transient global amnesia Anxiety disorder Home Medications ?Medication ?Instructions ?Recorded ?Last Taken ?Type hydralazine 50 mg tablet 50 mg PO TID 90 days #270 tabs 06/24/24 Unknown Rx Eliquis 5 mg tablet (apixaban) 5 mg PO BID #60 TABLETS 08/19/24 Unknown Rx metoprolol succinate 50 mg 50 mg PO BID blood pressure This 10/16/24 Unknown Rx tablet,extended release 24 hr is a dose increase #180 tabs losartan 100 mg tablet See Rx Instructions .Route 01/07/25 Unknown Rx .COMPLEX blood pressure #90 tabs levothyroxine 25 mcg tablet 25 mcg PO QDAY 01/08/25 Unknown History (Synthroid) amoxicillin 875 mg-potassium 875 mg PO Q12H #20 TABLETS 03/13/25 Unknown Rx clavulanate 125 mg tablet diltiazem HCl 180 mg 180 mg PO DAILY 03/26/25 Unknown History capsule,extended release 24 hr (Cardizem CD) ferrous sulfate 325 mg (65 mg 325 mg PO BID 03/26/25 Unknown History iron) tablet Allergy/AdvReac Type Severity Reaction Status Date / Time caffeine AdvReac Other Verified 03/26/25 03:32 Family History Father CVA (cerebral vascular accident) Mother Hypertension Heart disease CHF (congestive heart failure) Surgical History Hx of appendectomy H/O oophorectomy History of cholecystectomy H/O: hysterectomy Social History Smoking Status: Former smoker how long ago did patient quit smokin years age alcohol intake: never caffeine: No ROS ROS ED ROS Narrative Critical care caveat applies EXAM Physical Exam Narrative Exam Narrative: Patient is febrile blood pressure is appropriate but she is tachypneic with significant work of breathing and profoundly hypoxic she has coarse lung sounds bilaterally intact MSPs her abdomen is soft nontender nondistended. No lower extremity calf tenderness or significant edema patient appears ill but is mentating appropriately Const Vital Signs: 03/26/25 03:32 03/26/25 03:33 03/26/25 03:36 Temperature 99 F 99 F Temperature Source Axillary Axillary Pulse Rate 97 85 Respiratory Rate 38 H 40 H Respiratory Effort Respiratory Pattern Blood Pressure 157/54 H 157/54 H Blood Pressure Mean 88 88 Pulse Ox 52 81 85 Oxygen Delivery Method Room Air Non-Rebreather Bi-pap Oxygen Flow Rate (L/min) 15 Fraction of Inspired Oxygen (FIO2) 03/26/25 03:37 03/26/25 03:39 03/26/25 03:40 Temperature Temperature Source Pulse Rate 78 Respiratory Rate 38 H Respiratory Effort Short of Breath Respiratory Pattern Tachypnea Tachypnea Blood Pressure Blood Pressure Mean Pulse Ox 93 Oxygen Delivery Method Bi-pap Bi-pap Oxygen Flow Rate (L/min) Fraction of Inspired Oxygen (FIO2) 60 03/26/25 04:15 03/26/25 04:32 03/26/25 05:00 Temperature 100.3 F H 100.3 F H Temperature Source Axillary Axillary Pulse Rate 75 62 Respiratory Rate 38 H 35 H Respiratory Effort Respiratory Pattern Tachypnea Blood Pressure 113/49 L Blood Pressure Mean 70 Pulse Ox 95 97 Oxygen Delivery Method Bi-pap Oxygen Flow Rate (L/min) Fraction of Inspired Oxygen (FIO2) 70 03/26/25 05:30 Temperature Temperature Source Pulse Rate 61 Respiratory Rate 22 H Respiratory Effort Respiratory Pattern Blood Pressure 120/61 Blood Pressure Mean 80 Pulse Ox 98 Oxygen Delivery Method Bi-pap Oxygen Flow Rate (L/min) Fraction of Inspired Oxygen (FIO2) Sepsis Attestation Sepsis Alert: Yes Sepsis Attestation: Agree w/Sepsis Date exam was performed: 03/26/25 Time exam was performed: 03:30 Possible Source of Sepsis: Pulmonary Sepsis Organ Dysfunction Criteria Present: Acute Respiratory Failure (New need for BiPAP/CPAP or MV), Total Bilirubin > 2 mg/dl, INR > 1.5 or aPTT > 60 sec and Lactic Acid > 2 mmol/L Fluid Resuscitation Fluid resuscitation indicated?: Yes Fluid Resuscitation ordered: Lesser volume fluid bolus ordered Amount of fluid ordered: 500 Reason for lesser fluid bolus:: Concern for fluid overload and Heart failure Sepsis Note Date exam was performed: 03/26/25 Time exam was performed: 05:17 Sepsis Attestation: Sepsis re-evaluation was performed (patient not hypotensive but fluid allowed for improvement) MDM MDM MDM Narrative Medical decision making narrative: Nursing notes, triage notes, available previous documentation, and vital signs were reviewed. Any discrepancies noted were addressed. Differential Diagnoses: Pneumonia, PE, heart failure Interventions: BiPAP Antibiotics Given: Vancomycin and Zosyn Fluids Given: 500 cc normal saline Labs Reviewed: Leukocytosis of 25.1 hemoglobin is 9 platelets of 413 INR is 2.2 patient is slightly hyponatremic at 129 but receiving fluids her bicarb is 15 her creatinine is 1.1 lactic acidosis with 2.6 total bili is elevated at 2.0 with a slight troponin elevation at 22 no transaminitis however. Patient's arterial blood gas showed a pH of 7.45 with a pCO2 of 22 a pO2 of 56 and bicarb of 15 with a base excess of nearly -9 Imaging Reviewed: Personally reviewed and interpreted by me: Chest x-ray with concern for infiltrative findings I did perform a bedside ultrasound images were not saved it appeared that she had consolidations as well as some evidence of pulmonary edema and when I reviewed the CT angio of the chest patient does have some evidence of pulmonary edema but more concern for multifocal pneumonia she does not have evidence of a PE per the official report EKG: Atrial fibrillation rate of 72. EKG interpretation is noted and agreed to in the EMR. The interpretation of this patient's EKG contributed directly to the care and management of this patient. Risk Stratification Tools: Wells Score: Clinical signs & symptoms of DVT: No PE is #1 diagnosis or equally likely: Yes +3 HR >100 at any time: Yes +1.5 Immobilization at least 3 days or surgery in the previous 4 weeks: No Previous, objectively diagnosed PE or DVT: No Hemoptysis: No Malignancy in last 6 months: No Risk: Moderate 2-6 points: 16.2% incidence of PE. CTA ordered. Previous Documentation Reviewed: Recent emergency department visit on 03/13/2025 patient was seen for generalized illness then she was given Augmentin and azithromycin and fluconazole and ultimately discharged ED Course: Patient presenting with acute hypoxia and overall appearing unwell she is septic and required BiPAP as well as admission ultimately found to have multifocal pneumonia with pulmonary edema as well she was given broad-spectrum antibiotics. We will discuss with hospitalist regarding admission. 0535: I spoke with hospitalist Dr. Watts who is agreeable to taking the patient to the ICU but also want me to speak with Dr. Chan the town administrator so I did who also agrees patient requiring ICU level of care at this point. 53 minutes of critical care time utilized in managing the patient. This is due to high probability of and deterioration of the patient based on the patient's condition and excludes any separately billable procedures. This note was made utilizing voice recognition software. All attempts were made to correct spelling or other errors prior to note completion. However, due to the fast-paced nature of emergency medicine, some errors may still be present. Lab Data Labs: Laboratory Results - last 24 hr 03/26/25 03:39 WBC 25.1 H RBC 3.13 L Hgb 9.0 L Hct 27.7 L MCV 88.5 MCH 28.8 MCHC 32.5 RDW Std Deviation 44.5 H RDW Coeff of August 13.9 Plt Count 413 MPV 10.2 Immature Gran % (Auto) 3.100 H Neut % (Auto) 83.1 H Lymph % (Auto) 7.6 L Starr % (Auto) 5.7 Eos % (Auto) 0.1 Baso % (Auto) 0.4 Absolute Neuts (auto) 20.9 H Absolute Lymphs (auto) 1.92 Nucleated RBC % 0.1 PT 25.0 H INR 2.2 APTT 49.8 H Sodium 129 L Potassium 3.9 Chloride 98 Carbon Dioxide 14.8 L Anion Gap 16 H BUN 15 Creatinine 1.17 Estim Creat Clear Calc 39.02 L Est GFR (MDRD) Non-Af 46 L BUN/Creatinine Ratio 12.5 Glucose 183 H Lactic Acid 2.6 H* Calcium 9.0 Total Bilirubin 2.08 H AST 18 ALT 12 Alkaline Phosphatase 88 Troponin T High Sens 22 H Total Protein 7.0 Albumin 3.5 Globulin 3.5 Albumin/Globulin Ratio 1.0 ABG Data ABG results: ABG 03/26/25 03:54 Specimen Type ART Sample Site R Radial pH 7.45 Bicarbonate Actual 15.3 L Total CO2 16 Base Excess -9 L O2 Saturation 91 L O2 % 60.0 ABG pCO2 22.0 L ABG pO2 56 L Darrion Test Positive Respiration Rate 14 O2 Delivery Device BiPAP Vent Mode Not entered Tidal Volume 475.0 POC PEEP 8 Clinical Comments Radiography Diagnostic Testing: Clinical Impression(s) from Imaging Studies Chest CTA 03/26/25 04:05 IMPRESSION: Moderate cardiomegaly. Moderate interstitial congestion/edema. Moderate alveolar pulmonary edema. Moderate bilateral pleural effusions. Passive atelectatic airspace disease of the lower lobes. Bilateral widespread ground-glass densities of the lungs, possibly alveolar edema and/or widespread changes of pneumonia. This is more prominent in the central perihilar zones. Mildly prominent mediastinal and hilar lymph nodes with the largest measuring 3.2 cm, probably reactive. No CT evidence of pulmonary embolus or aortic dissection. Reading Location: [place] [address] Chest X-Ray 03/26/25 04:10 IMPRESSION: Unchanged bilateral pleural effusions. Unchanged passive atelectatic airspace disease of the lower lobes. Unchanged interstitial and alveolar pulmonary edema. Unchanged bilateral central perihilar airspace opacities of the lungs, probably pulmonary edema and/or pneumonia. Enlarged cardiac silhouette. Reading Location: [place] [address] Discharge Plan Triage Chief Complaint: Shortness of Breath ED Provider: Leydi Hammonds Dx/Rx/DC Orders Clinical Impression: Acute hypoxemic respiratory failure, Sepsis, Multifocal pneumonia, Pulmonary edema, Elevated troponin, Hyperbilirubinemia, Metabolic acidosis Prescriptions: No Action levothyroxine [Synthroid] 25 mcg tablet 25 mcg PO QDAY diltiazem HCl [Cardizem CD] 180 mg capsule,extended release 24hr 180 mg PO DAILY ferrous sulfate 325 mg (65 mg iron) tablet 325 mg PO BID amoxicillin-pot clavulanate 875-125 mg tablet 875 mg PO Q12H Qty: 20 0RF hydralazine 50 mg tablet 50 mg PO TID 90 Days Qty: 270 3RF Eliquis 5 mg tablet 5 mg PO BID Qty: 60 12RF metoprolol succinate 50 mg tablet extended release 24 hr 50 mg PO BID Qty: 180 3RF losartan 100 mg tablet See Rx Instructions .ROUTE .COMPLEX Qty: 90 3RF Dose Instruction: TAKE 1 TABLET BY MOUTH EVERY DAY Rx Instructions: TAKE 1 TABLET BY MOUTH EVERY DAY Primary Care Provider: Rosalino Raza Referrals: Rosalino Raza MD [Primary Care Provider, Medical] Print Language: Kosovan
--- OUTSIDE RECORDS SUMMARY | 2025-03-26 06:01 | XMS RPT_ITS | CCD ---
Author Organization [facility] Care Team Providers Care Clinical Informatics Physician Name Role Phone Blanka Haynes Unavailable Blanka Haynes Unavailable Rosalino Carmona MD Primary Care Provider Rosalino Carmona MD Primary Care Provider Rosalino Carmona MD Primary Care Provider Kristine, Dr. Rosalino Gonzalez Attending Unavail able Dr. Rosalino Carmona Primary Care Unavail able Rosalino Carmona MD Primary Care Provider Adri BRANTLEY, Cherelle Unavailable BREANNA CANSECO Referring Unavailable ROSALINO CARMONA Primary Care Unavailable Haagen LAMP SHADE SEWER.Keturah COFFEY Unavailable Suppan LAMP SHADE SEWER.ALEXX Orquidea A Unavailable Rosalino Carmona MD Primary Care Provider ROSALINO CARMONA Referring Unavailable ROSALINO CARMONA Primary Care Unavailable Suppan LAMP SHADE SEWER.ALEXX, Orquidea A Unavailable Suppan LAMP SHADE SEWER.ALEXX Orquidea A Unavailable Rosalino Carmona Referring Unavailable Kristine, Rosalino Primary Care Unavailable Demetrice Santiago Attending Unavail able Kristine, Rosalino Primary Care Unavailable Kristine, Rosalino Referring Unavailable Demetrice Santiago Attending Unavail able KristineRosalino Primary Care Unavailable Roland Harley Attending Unavailable Demetrice Santiago Referring Unavail able Kristine, Rosalino Primary Care Unavailable Demetrice Santiago Attending Unavail able Demetrice Santiago Referring Unavail able Zephyr, Rosalino Primary Care Unavailable Kristine, Rosalino Referring Unavailable Demetrice Santiago Attending Unavail able Dr. Rosalino Carmona MD Primary Care Physician [phone] Dr. Rosalino Carmona MD Referring Provider Demetrice Santiago Attending Physician [phone] ROSALINO CARMONA Attending Unavailable KRISTINE, ROSALINO Calloway [...] Unavailable VETOVITZ, BREANNA Referring Unavailable KRISTINE, ROSALINO Callwoay Primary Care Unavailable VETOVITZ, BREANNA Attending Unavailable SUPPANFAHEEMORQUIDEA Referring Unavailable KRISTINE, ROSALINO Calloway Primary Care Unavailable SUPPANFAHEEMORQUIDEA Referring Unavailable ROSALINO CARMONA Primary Care Unavailable VETOVITZ, BREANNA Referring Unavailable VETOVITZ, BREANNA Attending Unavailable ROSALINO CARMONA Primary Care Unavailable Allergies Allergy Classification Reported Allergen(s) Allergy Type Date of Onset Reaction(s) Facility (20 sources) caffeine; Translations: [CAFFEINE] Drug Allergy 4 Intolerance tuul Work Phone: Comment on above: PALPITATIONS (4 sources) NKDA drug allergy 3 [facility] [facility] Work Phone: (1 source) ALLERGIES NOT ON FILE; Translations: [ALLERGIES NOT ON FILE] Propensity to adverse reactions (disorder) [facility] 2 Repository Medications Current Medications Medication Drug [...] One tablet by mouth daily LOSARTAN POTASSIUM [id number] Jeremy Mchugh MD Comment on above: Take [...] TABS One tablet by mouth daily ASPIRIN [id number] Aixa Sue RN benzonatate 100 mg oral capsule (20 sources) Non-narcotic Antitussive Start: 04-18-2022 End: 12-27-2023 take 1 capsule by mouth every eight hours as needed benzonatate (TESSALON PERLES) 100 mg capsule Take 1 capsule by mouth three times daily as needed for cough. 30 capsule 1 04/18/2022 12/27/2023 Discontinued (Course of therapy completed) Comment on above: Take 1 capsule by mo [facility] three times daily as needed for [...] One tablet by mouth daily BIOTIN TABS [id number] Jeremy Mchugh MD Start: 02-15-2015 take 1 tablet by abe th once daily BIOTIN FORTE TABS One tablet by mouth daily BIOTIN TABS 94873886981 Jeremy Mchugh MD 24 hr dilTIAZem hydrochloride [...] th once daily CARDIZEM CD 180 MG [id number]-QJV One tablet by mouth daily DILTIAZEM HCL COATED BEADS 75700829660 Jeremy Mchugh MD Start: 11-22-2011 take 1 tablet by abe th twice daily CARDIZEM CD 180 MG [id number]-DBN One tablet by mouth twice daily DILTIAZEM HCL COATED BEADS [id number] Demetrice Greer PA-C Start: 11-15-2011 take 1 tablet by abe th once daily CARDIZEM CD 240 MG [id number]-DPV One tablet by mouth daily DILTIAZEM HCL COATED BEADS 99127986843 Aixa Sue, RN hydrALAZINE hydrochloride 50 mg [...] One tablet by mouth daily LOSARTAN POTASSIUM-HCTZ 91627436010 Aixa Sue, RN levoFLOXacin 750 mg oral [...] th once daily TOPROL XL 25 MG [id number] One tablet by mouth daily METOPROLOL SUCCINATE 45464167308 Jeremy Mchugh MD Comment on above: Take 50 mg by mouth once daily. POTASSIUM CHLORIDE GILBERTO CR (4 sources) Start: 02-26-2012 take 1 tablet by mouth once daily KLOR-CON M20 20 MEQ CR-TABS One tablet by mouth daily POTASSIUM CHLORIDE GILBERTO CR 24519198310 Jeremy Mchugh MD Start: 02-26-2012 End: 07-11-2012 take 1 tablet by mouth once daily KLOR-CON M20 20 MEQ CR-TABS One tablet by mouth daily POTASSIUM CHLORIDE GILBERTO CR 18233754340 Ira Mosley RN Problems Active Problems Problem [...] sources) Long-term current use of anticoagulant; Translations: [long-term (current) use of anticoagulants] Onset: 02-15-2018 Episodic [...] Da te Episodic/Chronic Other aftercare (1 source) long term care pharmacist (current) use of anticoagulants; Translations: [Chronic anticoagulation] [...] Free T4 [Mass/Vol] 1.4 ng/dL Normal 0.9-1.7 [facility] Comment on above: Order Comment: Speci men Type: BLOOD SPECIMENOrdering Facility: [facility] Address: [address] [place] [address] Performed By: #### 3 016-3, 3024-7 ####[facility] LABCLIA [id number] [place] [address] [place] TSH SerPl-aCncon 02-11-2025 TSH Qn 4.250 m[IU]/L High 0.270-4.200 [facility] Comment on above: Order Comment: Speci men Type: BLOOD SPECIMENOrdering Facility: [facility] Address: [address] [place] [address] Performed By: #### 3 016-3, 3024-7 ####[facility] LABCLIA [id number] [place] [address] [place] Cardiology Visit Reporton Cardiology Visit Report [facility] 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 Normal [facility] Basic metabolic 2000 panelon 01-05-2025 Anion gap [Moles/Vol] 11 mmol/L Normal 8-15 [facility] Comment on above: Order Comment: Speci men Type: BLOOD SPECIMENOrdering Facility: [facility] Address: [address] [place] [address] Performed By: #### 1 91239, 18295-9 ####[facility] LABCLIA [id number] [place] [address] [place] Calcium [Mass/Vol] 9.2 mg/dL Normal 8.5-10.2 [facility] Comment on above: Order Comment: Speci anh Type: BLOOD SPECIMENOrdering Facility: [facility] Address: [address] [place] [address] Performed By: #### 1 91239, 78244-0 ####[facility] LABCLIA [id number] [place] [address] [place] Chloride [Moles/Vol] 106 mmol/L Normal 98-107 [facility] Comment on above: Order Comment: Ieshai men Type: BLOOD SPECIMENOrdering Facility: [facility] Address: [address] [place] [address] Performed By: #### 1 91239, 46511-2 ####[facility] LABCLIA [id number] [place] [id number] [place] CO2 [Moles/Vol] 21 mmol/L Low 22-30 [facility] Comment on above: Order Comment: Speci men Type: BLOOD SPECIMENOrdering Facility: [facility] Address: [address] [place] [address] Performed By: #### 1 9123-9, 94093-6 ####[facility] LABIA [id number] [place] [id number] [place] Creatinine [Mass/Vol] 1.04 mg/dL High 0.58-0.96 [facility] Comment on above: Order Comment: Speci men Type: BLOOD SPECIMENOrdering Facility: [facility] Address: [address] [place] [address] Performed By: #### 1 9123-9, 14980-1 ####[facility] LABIA [id number] [place] [address] [place] eGFRcr SerPlBld CKD-EPI 2020 53 mL/min/1.73m??? Low >=60 [facility] Comment on above: Order Comment: Speci men Type: BLOOD SPECIMENOrdering Facility: [facility] Address: [address] [place] [address] Result Comment: Lilo mated Glomerular Filtration Rate [...] actual GFR. Performed By: #### 1 9123-9, 26067-9 ####[facility] LABIA [id number] [place] [id number] [place] Glucose [Mass/Vol] 92 mg/dL Normal 74-99 [facility] Comment on above: Order Comment: Speci men Type: BLOOD SPECIMENOrdering Facility: [facility] Address: [address] [place] [address] Result Comment: The [place] Diabetes Association (ADA) provides guidance for cutoff [...] Standards of Medical Care in Diabetes 2016, [place] [employer]. Diabetes Care. 2016.39(Suppl 1). Performed By: #### 1 9123-9, 44880-2 ####[facility] LABCLIA [id number] [place] [address] [place] Potassium [Moles/Vol] 4.4 mmol/L Normal 3.7-5.1 [facility] Comment on above: Order Comment: Speci men Type: BLOOD SPECIMENOrdering Facility: [facility] Address: [address] [place] [address] Performed By: #### 1 9123-9, 70861-0 ####[facility] LABIA [id number] [place] [id number] [place] Sodium [Moles/Vol] 138 mmol/L Normal 136-144 [facility] Comment on above: Order Comment: Speci men Type: BLOOD SPECIMENOrdering Facility: [facility] Address: [address] [place] [address] Performed By: #### 1 9123-9, 76642-4 ####[facility] LABIA [id number] [place] [id number] [place] Urea nitrogen [Mass/Vol] 16 mg/dL Normal 7-21 [facility] Comment on above: Order Comment: Speci men Type: BLOOD SPECIMENOrdering Facility: [facility] Address: [address] [place] [id number] Performed By: #### 1 9123-9, 83400-1 ####[facility] LABIA [id number] [place] [address] [place] Magnesium SerPl-mCncon 01-05 Magnesium [Mass/Vol] 2.1 mg/dL Normal 1.7-2.3 [facility] Comment on above: Order Comment: Speci men Type: BLOOD SPECIMENOrdering Facility: [facility] Address: [address] [place] [address] Performed By: #### 1 9123-9, 70889-8 ####[facility] LABIA [id number] [place] [address] [place] CNOVon 12-28-2024 CNOV Office Visit (ORTHWS ) TRICIA GRANADOS ([id number]) 1940 F Date Time Provider Department 12/28/24 [...] these instructions. Informed Consent Consent Obtained: Verbal Mcallen Protocol A moment to CARE was completed. [...] hospitalized patients) applicable. Referring Provider: BREANNA CANSECO [[id number]] Allergies As of Date: 12/28/2024 Noted Allergy [...] [M17.0] Order(s):Large Joint Arthro/Inj: bilateral knee joints [[id number]] Order #: [id number] [] betamethasone acetate-betamethasone sodium phosphate 6 mg [...] Status:Closed by BREANNA CANSECO on 12/28/24 Normal [facility] Large Joint Arthro/Inj: bila teral [...] these instructions. Informed Consent Consent Obtained: Verbal Mcallen Protocol A moment to CARE was completed. [...] the bedside nurse for hospitalized patients) applicable. [facility] Basic metabolic 2000 panelon 12-18-2024 Anion gap [Moles/Vol] 13 mmol/L Normal 8-15 [facility] Comment on above: Order Comment: Tessa kamara Type: BLOOD SPECIMENOrdering Facility: [facility] Address: [address] [place] [address] Performed By: #### T 4FTI, 3053-6, 58495-5 ####[facility] LABCLIA [id number] [place] [address] [place] Calcium [Mass/Vol] 9.5 mg/dL Normal 8.5-10.2 [facility] Comment on above: Order Comment: Tessa kamara Type: BLOOD SPECIMENOrdering Facility: [facility] Address: [address] [place] [address] Performed By: #### T 4FTI, 305-6, 58773-5 ####[facility] LABCLIA [id number] [address] [address] [place] Chloride [Moles/Vol] 100 mmol/L Normal 98-107 [facility] Comment on above: Order Comment: Speci men Type: BLOOD SPECIMENOrdering Facility: [facility] Address: [address] [place] [address] Performed By: #### T 4FTI, 30506-25, 05781-2 ####[facility] LABCLIA [id number] [place] [id number] [place] CO2 [Moles/Vol] 18 mmol/L Low 22-30 [facility] Comment on above: Order Comment: Speci men Type: BLOOD SPECIMENOrdering Facility: [facility] Address: [address] [place] [address] Performed By: #### T 4FTI, 305-, 50853-1 ####[facility] LABIA [id number] [place] [id number] [place] Creatinine [Mass/Vol] 1.08 mg/dL High 0.58-0.96 [facility] Comment on above: Order Comment: Speci men Type: BLOOD SPECIMENOrdering Facility: [facility] Address: [address] [place] [address] Performed By: #### T 4FTI, 30506-25, 11772-4 ####[facility] LABIA [id number] [address] [address] [place] eGFRcr SerPlBld CKD-EPI 2020 51 mL/min/1.73m??? Low >=60 [facility] Comment on above: Order Comment: Speci men Type: BLOOD SPECIMENOrdering Facility: [facility] Address: [address] [place] [address] Result Comment: Lilo mated Glomerular Filtration Rate [...] GFR. Performed By: #### T 4FLAURA, 3052-, 52433-6 ####[facility] LABCLIA [id number] [place] [id number] [place] Glucose [Mass/Vol] 102 mg/dL High 74-99 [facility] Comment on above: Order Comment: Speci men Type: BLOOD SPECIMENOrdering Facility: [facility] Address: [address] [place] [address] Result Comment: The [place] Diabetes Association (ADA) provides guidance for cutoff [...] Standards of Medical Care in Diabetes 2016, [place] [employer]. Diabetes Care. 2016.39(Suppl 1). Performed By: #### T 4FLAURA, 3052-09, 22233-1 ####[facility] LABIA [id number] [place] [id number] [place] Potassium [Moles/Vol] 4.2 mmol/L Normal 3.7-5.1 [facility] Comment on above: Order Comment: Tessa kamara Type: BLOOD SPECIMENOrdering Facility: [facility] Address: [address] [place] [address] Performed By: #### T 4FLAURA, 3052-09, 29589-1 ####[facility] LABIA [id number] [address] [place] [address] [place] Sodium [Moles/Vol] 131 mmol/L Low 136-144 [facility] Comment on above: Order Comment: Speci men Type: BLOOD SPECIMENOrdering Facility: [facility] Address: [address] [place] [address] Performed By: #### T 4FLAURA, 3056, 69104-7 ####[facility] LABCLIA [id number] [address], [place] [address] [place] Urea nitrogen [Mass/Vol] 11 mg/dL Normal 7-21 [facility] Comment on above: Order Comment: Speci men Type: BLOOD SPECIMENOrdering Facility: [facility] Address: [address] [place] [address] Performed By: #### T 4FLAURA, 3052-09, 60089-8 ####[facility] LABCLIA [id number] [address], [address] STATES OF [facility] T3 SerPl-mCncon 12-18-2024 T3 [Mass/Vol] 122 ng/dL Normal 79-165 [facility] Comment on above: Order Comment: Speci men Type: BLOOD SPECIMENOrdering Facility: [facility] Address: [address] [place] [address] Performed By: #### T 4FLAURA, 3052-09, 05774-0 ####[facility] LABCLIA [id number] [address], [facility] [place] T4/FTI/T4Uon 12-18-2024 FTI 8.9 ug/dL Normal 5.3-10.8 [facility] Comment on above: Order Comment: Speci men Type: BLOOD SPECIMENOrdering Facility: [facility] Address: [address] [place] [address] Performed By: #### T 4FLAURA, 3052-09, 48425-7 ####[facility] LABCLIA [id number] [address], [facility] [place] T4 [Mass/Vol] 7.6 ug/dL Normal 5.5-10.2 [facility] Comment on above: Order Comment: Speci men Type: BLOOD SPECIMENOrdering Facility: [facility] Address: [address] [place] [address] Performed By: #### T 4FTI, 3053-6, 44429-5 ####[facility] LABCLIA [id number] [address] OF [facility] T4 uptake [Mass/Vol] 0.85 Low 0.91-1.19 [facility] Comment on above: Order Comment: Speci men Type: BLOOD SPECIMENOrdering Facility: [facility] Address: [address] [place] [address] Performed By: #### T 4FTI, 3053-6, 57920-3 ####[facility] LABCLIA [id number] [place] [address] [place] TSH SerPl-aCncon 12-18-2024 TSH Qn 5.320 m[IU]/L High 0.270-4.200 [facility] Comment on above: Order Comment: Speci men Type: BLOOD SPECIMENOrdering Facility: [facility] Address: [address] [place] [address] Performed By: #### 3 016-3 ####[facility] LABCLIA [id number] [place] [address] [place] [facility] TRICIA GRANADOS ([id number]) 1940 F Date Time Provider Department 12/10/24 ROSALINO CARMONA [facility] During your visit today, we recorded [...] [E03.9] Order(s):BASIC METABOLIC PANEL [SQBMP] Order #: [id number] FUTURE THYROID STIMULATING HORMONE [SQTSH] Order #: [id number] FUTURE T4/FTI/T4U [SPQ0SAM] Order #: [id number] FUTURE T3 [SQT3] Order #: [id number] FUTURE Prescriptions as of 12/10/2024 - hydrALAZINE [...] Status:Closed by GREGORIA ANDERSON on 12/10/24 Normal [facility] CBC W Auto Differential pane l (Bld)on 12-09-2024 Basophils (Bld) [#/Vol] 0.07 10*3/uL Normal <0.11 [facility] Comment on above: Order Comment: Speci men Type: BLOOD SPECIMENOrdering Facility: [facility] Address: [address] [place] [address] Performed By: #### 5 7021-8 ####[facility] LABCLIA [id number] [place] [address] [place] Basophils/100 WBC (Bld) 0.8 % Normal [facility] Comment on above: Order Comment: Speci men Type: BLOOD SPECIMENOrdering Facility: [facility] Address: [address] [place] [address] Performed By: #### 5 7021-8 ####[facility] LABCLIA [id number] [place] [address] [place] Differential cell count method Nom (Bld) Auto Normal [facility] Comment on above: Order Comment: Speci men Type: BLOOD SPECIMENOrdering Facility: [facility] Address: [address] [place] [address] Performed By: #### 5 7021-8 ####[facility] LABCLIA [id number] [place] [address] [place] Eosinophils (Bld) [#/Vol] 0.26 10*3/uL Normal <0.46 [facility] Comment on above: Order Comment: Speci men Type: BLOOD SPECIMENOrdering Facility: [facility] Address: [address] [place] [address] Performed By: #### 5 7021-8 ####[facility] LABCLIA [id number] [place] [id number] [place] Eosinophils/100 WBC (Bld) 2.8 % Normal [facility] Comment on above: Order Comment: Speci men Type: BLOOD SPECIMENOrdering Facility: [facility] Address: [address] [place] [address] Performed By: #### 5 7021-8 ####[facility] LABCLIA [id number] [address], [place] [address] [place] Erythrocyte distribution width (RBC) [Ratio] 13.3 % Normal 11.5-15.0 [facility] Comment on above: Order Comment: Speci men Type: BLOOD SPECIMENOrdering Facility: [facility] Address: [address] [place] [address] Performed By: #### 5 7021-8 ####[facility] LABCLIA [id number] [address], [place] [address] [place] Hematocrit (Bld) [Volume fraction] 36.0 % Normal 36.0-46.0 [facility] Comment on above: Order Comment: Speci men Type: BLOOD SPECIMENOrdering Facility: [facility] Address: [address] [place] [address] Performed By: #### 5 7021-8 ####[facility] LABCLIA [id number] [address], [facility] [place] Hemoglobin (Bld) [Mass/Vol] 11.8 g/dL Normal 11.5-15.5 [facility] Comment on above: Order Comment: Speci men Type: BLOOD SPECIMENOrdering Facility: [facility] Address: [address] [place] [address] Performed By: #### 5 7021-8 ####[facility] LABCLIA [id number] [address], [facility] [place] Immature granulocytes (Bld) [#/Vol] 0.17 10*3/uL High <0.10 [facility] Comment on above: Order Comment: Speci men Type: BLOOD SPECIMENOrdering Facility: [facility] Address: [address] [place] [address] Performed By: #### 5 7021-8 ####[facility] LABCLIA [id number] [address] [place] Immature granulocytes/100 WBC (Bld) 1.9 % Normal [facility] Comment on above: Order Comment: Speci men Type: BLOOD SPECIMENOrdering Facility: [facility] Address: [address] [place] [address] Performed By: #### 5 7021-8 ####[facility] LABCLIA [id number] [place] [address] [place] Lymphocytes (Bld) [#/Vol] 1.79 10*3/uL Normal 1.00-4.00 [facility] Comment on above: Order Comment: Speci men Type: BLOOD SPECIMENOrdering Facility: [facility] Address: [address] [place] [address] Performed By: #### 5 7021-8 ####[facility] LABCLIA [id number] [place] [address] [place] Lymphocytes/100 WBC (Bld) 19.5 % Normal [facility] Comment on above: Order Comment: Speci men Type: BLOOD SPECIMENOrdering Facility: [facility] Address: [address] [place] [address] Performed By: #### 5 7021-8 ####[facility] LABCLIA [id number] [place] [id number] [place] MCH (RBC) [Entitic mass] 29.7 pg Normal 26.0-34.0 [facility] Comment on above: Order Comment: Speci men Type: BLOOD SPECIMENOrdering Facility: [facility] Address: [address] [place] [address] Performed By: #### 5 7021-8 ####[facility] LABCLIA [id number] [place] [address] [place] MCHC (RBC) [Mass/Vol] 32.8 g/dL Normal 30.5-36.0 [facility] Comment on above: Order Comment: Speci men Type: BLOOD SPECIMENOrdering Facility: [facility] Address: [address] [place] [address] Performed By: #### 5 7021-8 ####[facility] LABIA [id number] [place] [address] [place] MCV (RBC) [Entitic vol] 90.7 fL Normal 80.0-100.0 [facility] Comment on above: Order Comment: Speci men Type: BLOOD SPECIMENOrdering Facility: [facility] Address: [address] [place] [address] Performed By: #### 5 7021-8 ####[facility] LABIA [id number] [place] [address] [place] Monocytes (Bld) [#/Vol] 0.84 10*3/uL Normal <0.87 [facility] Comment on above: Order Comment: Speci men Type: BLOOD SPECIMENOrdering Facility: [facility] Address: [address] [place] [address] Performed By: #### 5 7021-8 ####[facility] LABIA [id number] [place] [address] [place] Monocytes/100 WBC (Bld) 9.2 % Normal [facility] Comment on above: Order Comment: Speci men Type: BLOOD SPECIMENOrdering Facility: [facility] Address: [address] [place] [address] Performed By: #### 5 7021-8 ####[facility] LABCLIA [id number] [place] [address] [place] Neutrophils (Bld) [#/Vol] 6.03 10*3/uL Normal 1.45-7.50 [facility] Comment on above: Order Comment: Speci men Type: BLOOD SPECIMENOrdering Facility: [facility] Address: [address] [place] [address] Performed By: #### 5 7021-8 ####[facility] LABCLIA [id number] [place] [id number] [place] Neutrophils/100 WBC (Bld) 65.8 % Normal [facility] Comment on above: Order Comment: Speci men Type: BLOOD SPECIMENOrdering Facility: [facility] Address: [address] [place] [address] Performed By: #### 5 7021-8 ####[facility] LABCLIA [id number] [place] [address] [place] Nucleated RBC (Bld) [#/Vol] 10*3/uL Normal <0.01 [facility] Comment on above: Order Comment: Speci men Type: BLOOD SPECIMENOrdering Facility: [facility] Address: [address] [place] [address] Performed By: #### 5 7021-8 ####[facility] LABCLIA [id number] [place] [address] [place] Nucleated RBC/100 WBC (Bld) [Ratio] 0.0 /100 WBC Normal [facility] Comment on above: Order Comment: Speci men Type: BLOOD SPECIMENOrdering Facility: [facility] Address: [address] [place] [address] Performed By: #### 5 7021-8 ####[facility] LABCLIA [id number] [place] [id number] [place] Platelet mean volume (Bld) [Entitic vol] 11.6 fL Normal 9.0-12.7 [facility] Comment on above: Order Comment: Speci men Type: BLOOD SPECIMENOrdering Facility: [facility] Address: [address] [place] [address] Performed By: #### 5 7021-8 ####[facility] LABCLIA [id number] [address] [address] [place] Platelets (Bld) [#/Vol] 292 10*3/uL Normal 150-400 [facility] Comment on above: Order Comment: Speci men Type: BLOOD SPECIMENOrdering Facility: [facility] Address: [address] [place] [address] Performed By: #### 5 7021-8 ####[facility] LABIA [id number] [place] [address] [place] RBC (Bld) [#/Vol] 3.97 10*6/uL Normal 3.90-5.20 [facility] Comment on above: Order Comment: Speci men Type: BLOOD SPECIMENOrdering Facility: [facility] Address: [address] [place] [address] Performed By: #### 5 7021-8 ####[facility] [id number] [place] [address] [place] WBC (Bld) [#/Vol] 9.16 10*3/uL Normal 3.70-11.00 [facility] Comment on above: Order Comment: Speci men Type: BLOOD SPECIMENOrdering Facility: [facility] Address: [address] [place] [address] Performed By: #### 5 7021-8 ####[facility] LABIA [id number] [place] [id number] [place] Comprehensive metabolic 2000 panelon 12-09-2024 Albumin [Mass/Vol] 3.8 g/dL Low 3.9-4.9 [facility] Comment on above: Order Comment: Speci men Type: BLOOD SPECIMENOrdering Facility: [facility] Address: [address] [place] [address] Performed By: #### 3 016-3, 82997-8, 79855-6 ####[facility] LABCLIA [id number] [place] [id number] [place] ALP [Catalytic activity/Vol] 82 U/L Normal 34-123 [facility] Comment on above: Order Comment: Speci men Type: BLOOD SPECIMENOrdering Facility: [facility] Address: [address] [place] [address] Performed By: #### 3 016-3, 06792-6, 05322-5 ####[facility] LABCLIA [id number] [place] [address] [place] ALT [Catalytic activity/Vol] 8 U/L Normal 7-38 [facility] Comment on above: Order Comment: Speci men Type: BLOOD SPECIMENOrdering Facility: [facility] Address: [address] [place] [address] Performed By: #### 3 016-3, 00236-8, 38333-4 ####[facility] LABCLIA [id number] [place] [address] [place] Anion gap [Moles/Vol] 11 mmol/L Normal 8-15 [facility] Comment on above: Order Comment: Speci men Type: BLOOD SPECIMENOrdering Facility: [facility] Address: [address] [place] [address] Performed By: #### 3 016-3, 45994-5, 37977-5 ####[facility] LABCLIA [id number] [place] [address] [place] AST [Catalytic activity/Vol] 15 U/L Normal 13-35 [facility] Comment on above: Order Comment: Speci men Type: BLOOD SPECIMENOrdering Facility: [facility] Address: [address] [place] [address] Performed By: #### 3 016-3, 56718-9, 77272-7 ####[facility] LABCLIA [id number] [address] [address] [place] Bilirubin [Mass/Vol] 1.1 mg/dL Normal 0.2-1.3 [facility] Comment on above: Order Comment: Speci men Type: BLOOD SPECIMENOrdering Facility: [facility] Address: [address] [place] [address] Performed By: #### 3 016-3, , ####[facility] LABCLIA [id number] [address] [address] [place] Calcium [Mass/Vol] 9.6 mg/dL Normal 8.5-10.2 [facility] Comment on above: Order Comment: Speci men Type: BLOOD SPECIMENOrdering Facility: [facility] Address: [address] [place] [address] Performed By: #### 3 016-3, , ####[facility] LABCLIA [id number] [place] [address] [place] Chloride [Moles/Vol] 102 mmol/L Normal 98-107 [facility] Comment on above: Order Comment: Speci men Type: BLOOD SPECIMENOrdering Facility: [facility] Address: [address] [place] [address] Performed By: #### 3 016-3, , ####[facility] LABCLIA [id number] [place] [id number] [place] CO2 [Moles/Vol] 21 mmol/L Low 22-30 [facility] Comment on above: Order Comment: Speci men Type: BLOOD SPECIMENOrdering Facility: [facility] Address: [address] [place] [address] Performed By: #### 3 016-3, , ####[facility] LABCLIA [id number] [address] [address] [place] Creatinine [Mass/Vol] 1.03 mg/dL High 0.58-0.96 [facility] Comment on above: Order Comment: Speci men Type: BLOOD SPECIMENOrdering Facility: [facility] Address: [address] [place] [address] Performed By: #### 3 016-3, 85099-1, 44409-8 ####[facility] LABIA [id number] [place] [address] [place] eGFRcr SerPlBld CKD-EPI 2020 54 mL/min/1.73m??? Low >=60 [facility] Comment on above: Order Comment: Tessa men Type: BLOOD SPECIMENOrdering Facility: [facility] Address: [address] [place] [address] Result Comment: Lilo mated Glomerular Filtration Rate [...] actual GFR. Performed By: #### 3 016-3, 61963-1, 24529-0 ####[facility] LABCLIA [id number] [place] [id number] [place] Glucose [Mass/Vol] 97 mg/dL Normal 74-99 [facility] Comment on above: Order Comment: Tessa kamara Type: BLOOD SPECIMENOrdering Facility: [facility] Address: [address] [place] [address] Result Comment: The [place] Diabetes Association (ADA) provides guidance for cutoff [...] Standards of Medical Care in Diabetes 2016, [place] [employer]. Diabetes Care. 2016.39(Suppl 1). Performed By: #### 3 016-3, 83185-6, 39879-6 ####[facility] LABCLIA [id number] [address] [address] [place] Potassium [Moles/Vol] 4.6 mmol/L Normal 3.7-5.1 [facility] Comment on above: Order Comment: Speci men Type: BLOOD SPECIMENOrdering Facility: [facility] Address: [address] [place] [address] Performed By: #### 3 016-3, 62419-8, 39398-0 ####[facility] LABCLIA [id number] [place] [address] [place] Protein [Mass/Vol] 6.9 g/dL Normal 6.3-8.0 [facility] Comment on above: Order Comment: Speci men Type: BLOOD SPECIMENOrdering Facility: [facility] Address: [address] [place] [address] Performed By: #### 3 016-3, 58804-1, 03761-6 ####[facility] LABIA [id number] [place] [id number] [place] Sodium [Moles/Vol] 134 mmol/L Low 136-144 [facility] Comment on above: Order Comment: Speci men Type: BLOOD SPECIMENOrdering Facility: [facility] Address: [address] [place] [address] Performed By: #### 3 016-3, 63359-6, 35299-1 ####[facility] LABIA [id number] [address] [address] [place] Urea nitrogen [Mass/Vol] 15 mg/dL Normal 7-21 [facility] Comment on above: Order Comment: Speci men Type: BLOOD SPECIMENOrdering Facility: [facility] Address: [address] [place], [place] [address] Performed By: #### 3 016-3, 55808-1, 88054-5 ####[facility] LABCLIA [id number] [address] [address] [place] [facility] [place] Lipid 1996 panelon 5 Cholesterol [Mass/Vol] 149 mg/dL Normal <200 [facility] Comment on above: Order Comment: Speci men Type: BLOOD SPECIMENOrdering Facility: [facility] Address: [address] [place] [address] Result Comment: <200 mg/dL, Desirable 200-239 mg/dL, Borderline high >239 mg/dL, High Performed By: #### 3 016-3, , ####[facility] LABCLIA [id number] [address] [place] Cholesterol in HDL [Mass/Vol] 47 mg/dL Normal >39 [facility] Comment on above: Order Comment: Speci men Type: BLOOD SPECIMENOrdering Facility: [facility] Address: [address] [place] [address] Result Comment: 40-5 9 mg/dL, Acceptable >59 mg/dL, High: Negative risk factor for coronary heart disease <40 mg/dL, Low: Positive risk factor for coronary heart disease Performed By: #### 3 016-3, , ####[facility] LABCLIA [id number] [address] [facility] Cholesterol in LDL [Mass/Vol] 81 mg/dL Normal <100 [facility] Comment on above: Order Comment: Speci men Type: BLOOD SPECIMENOrdering Facility: [facility] Address: [address] [place] [address] Result Comment: <100 mg/dL, Optimal 100-129 mg/dL, Near optimal/above optimal 130-159 mg/dL, Borderline high 160-189 mg/dL, High >189 mg/dL, Very high Secondary prevention optimal LDL Cholesterol levels are recommended to be <70 mg/dL LDL cholesterol is calculated using the Good-NIH equation. Performed By: #### 3 016-3, 06476-8, 27214-0 ####[facility] LABCLIA [id number] [place] [id number] [place] Cholesterol in LDL/Cholesterol in HDL [Mass ratio] 1.72 {ratio} Normal <2.54 [facility] Comment on above: Order Comment: Speci men Type: BLOOD SPECIMENOrdering Facility: [facility] Address: [address] [place] [address] Result Comment: Refe rence: 1. National Cholesterol Education Program ATP III Guideline At-A-Glance Quick Desk Reference: National Heart, Lung, and Blood Mcneal. National Institutes of Health. 2001: NIH Publication No. 01-3305. 2. An International Atherosclerosis Society position paper: global recommendations for the management of dyslipidemia: executive summary, Atherosclerosis. 2014: 232(2):410-413. Performed By: #### 3 016-3, 45594-5, ####[facility] LABCLIA [id number] [place] [address] [place] Cholesterol in VLDL [Mass/Vol] 18 mg/dL Normal <30 [facility] Comment on above: Order Comment: Speci men Type: BLOOD SPECIMENOrdering Facility: [facility] Address: [address] [place] [address] Performed By: #### 3 016-3, 66608-9, ####[facility] LABCLIA [id number] [place] [id number] [place] Cholesterol non HDL [Mass/Vol] 102 mg/dL Normal <130 [facility] Comment on above: Order Comment: Speci men Type: BLOOD SPECIMENOrdering Facility: [facility] Address: [address] [place] [address] Result Comment: <130 mg/dL, Optimal 130-159 mg/dL, Near optimal/above optimal 160-189 mg/dL, Borderline high 190-219 mg/dL, High >219 mg/dL, Very high Secondary prevention optimal non HDL Cholesterol levels are recommended to be <100 mg/dL Performed By: #### 3 016-3, 17454-9, ####[facility] LABIA [id number] [address] [address] [place] Cholesterol.total/Ch olesterol in HDL [Mass ratio] 3.17 {ratio} Normal <5.10 [facility] Comment on above: Order Comment: Speci men Type: BLOOD SPECIMENOrdering Facility: [facility] Address: [address] [place] [address] Performed By: #### 3 016-3, , ####[facility] [id number] [place] [address] [place] FASTING TIME 12 hrs Normal [facility] Comment on above: Order Comment: Speci men Type: BLOOD SPECIMENOrdering Facility: [facility] Address: [address] [place] [address] Performed By: #### 3 016-3, , ####[facility] LABIA [id number] [address], [place] [address] [place] Triglyceride [Mass/Vol] 119 mg/dL Normal <150 [facility] Comment on above: Order Comment: Speci men Type: BLOOD SPECIMENOrdering Facility: [facility] Address: [address] [place] [address] Result Comment: <150 mg/dL, Normal 150-199 mg/dL, Borderline high 200-499 mg/dL, High >499 mg/dL, Very high Performed By: #### 3 016-3, 82846-4, ####[facility] LABIA [id number] [place] [id number] [place] TSH SerPl-aCncon 12-09-2024 TSH Qn 5.210 m[IU]/L High 0.270-4.200 [facility] Comment on above: Order Comment: Speci men Type: BLOOD SPECIMENOrdering Facility: [facility] Address: [address] [place] [address] Performed By: #### 3 016-3, 83380-8, 42569-4 ####[facility] MELODY [id number] THEA SADLER [place] [id number] [facility] CNOVon 12-02-2024 CNOV Office Visit (FAMPWS ) TRICIA GRANADOS ([id number]) 1940 F Date Time Provider Department 12/02/24 8:40 AM ROSALINO CARMONA FAMPWS During your visit today, we recorded the following information about you: Pulse Blood pressure Weight 47/minute 110/60 85.5 kg Rosalino Carmona MD 12/02/2024 8:54 AM Signed - Start amoxicillin (mid-range dose) for 7 days for your sinus infection; prescription sent to [facility] in [place]. - Refill your amlodipine, hydralazine, and metoprolol [...] good dent (more content not included)... Normal [facility] CNOVon 09-21-2024 CNOV Office Visit (MARISOL ) TRICIA GRANADOS ([id number]) 1940 F Date Time Provider Department 09/21/24 [...] these instructions. Informed Consent Consent Obtained: Verbal Mcallen Protocol A moment to CARE was completed. [...] [M17.0] Order(s):Large Joint Arthro/Inj: bilateral knee joints [YKQ808] Order #: [id number] [] betamethasone acetate-betamethasone sodium phosphate 6 mg [...] INJECT* 09/21/2024 (more content not included)... Normal [facility] Large Joint Arthro/Inj: bila teral [...] these instructions. Informed Consent Consent Obtained: Verbal Mcallen Protocol A moment to CARE was completed. [...] the bedside nurse for hospitalized patients) applicable. [facility] Cardiology Visit Reporton Cardiology Visit Report [facility] 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 Normal [facility] CNOVon 06-08-2024 CNOV Office Visit (ORTHWS ) TRICIA GRANADOS ([id number]) 1940 F Date Time Provider Department 06/08/24 [...] knee joints Informed Consent Consent Obtained: Verbal Mcallen Protocol A moment to CARE was completed. [...] [M17.0] Order(s):Large Joint Arthro/Inj: bilateral knee joints [[id number]] Order #: [id number] [] betamethasone acetate-betamethasone sodium phosphate 6 mg [...] Encounter Status:Closed by BREANNA CANSECO on 06/08/24 [facility] Large Joint Arthro/Inj: bila teral knee jointson 06-08-2024 Breanna Canseco PA -C 06/08/2024 8:32 AM Large Joint Arthro/Inj: bilateral knee joints Informed Consent Consent Obtained: Verbal Mcallen Protocol A moment to CARE was completed. [...] Plan of Care Visit completed when applicable [facility] CNOVon 05-26-2024 CNOV Office Visit (FAMPWS ) TRICIA GRANADOS ([id number]) 1940 F Date Time Provider Department 05/26/24 8:00 AM [facility] During your visit today, we recorded the following information about you: Pulse Blood pressure Weight Height 75/minute 130/58 88.5 kg 1.676 m Orquidea Robertson, LAMP 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 05/26/2024 9:04 AM Addendum This is a [...] Date Reviewed: (more content not included)... Normal [facility] Ovi 05-05-2024 JANAE Telephone ([place]) TRICIA GRANADOS ([id number]) 1940 F Date Time Provider Department 05/05/24 [facility] During your visit today, we recorded the following information about you: Gregoria Anderson, RN 05/05/2024 4:33 PM Signed Pt called in and reports she started 2 new heart medications in February Amlodipine and Hydralazine, and she increased her Metoprolol. She said the Tallier discontinued her Diltiazem. She though maybe these medication had given her diarrhea, but her Tallier didn't think so and told her to [...] for Visit: Patient Update [1234] Patient Question [8387] Prescriptions as of 05/05/2024 - amLODIPine (NORVASC) [...] Encounter Status:Closed by CINDY AGUIAR on 05/05/24 [facility] CNOVon 04-28-2024 CNOV Office Visit (FAMPWS ) TRICIA GRANADOS ([id number]) 1940 F Date Time Provider Department 04/28/24 2:40 PM [facility] During your visit today, we recorded [...] or questio (more content not included)... Normal [facility] TRIC[facility] GRA[facility] ([id number]) 1940 F Date Time Provider Department 04/28/24 [...] Encounter Status:Closed by GREGORIA ANDERSON on 04/29/24 [facility] BI MAMMO BILATERAL SCREENING TOMOSYNTHESISon 04-10-2024 BI MAMMO BILATERAL SCREENING TOMOSYNTHESIS Interpreted By: Renard Allen, STUDY: BI MAMMO BILATERAL SCREENING TOMOSYNTHESIS; 04/10/2024 8:47 am ACCESSION NUMBER(S): [id number] ORDERING CLINICIAN: ROSALINO CARMONA INDICATION: Screening. ,Z12.31 [...] any future breast imaging appointments, please call [phone] ([phone]). MACRO: None Signed by: Renard Allen 04/10/2024 9:21 AM Dictation workstation: [id number] [facility]10-[facility] TRICIA GRANADOS ([id number]) 1940 F Date Time Provider Department 04/10/24 ROSALINO CARMONA [facility] During your visit today, we recorded the following information about you: Harmeet Carmona LPN 04/10/2024 10:40 AM Signed See mammo results: Scan on 04/10/2024 9:25 AM by Provider, ILEANA ArmendarizC: Mammography Rosalino Carmona MD 04/10/2024 10:58 AM Signed mammogram Allergies As of Date: 04/10/2024 Noted Allergy Reaction CAFFEINE 02/16/2014 5 - Intolerance Date Reviewed: 01/24/2024 Reviewed by: Orquidea Robertson APRN.[facility] - Fully Assessed Reason for Visit: [...] Status:Closed by ROSALINO CARMONA on 04/10/24 Normal [facility] DBT Breast - bilateralon No mammographic evidence of malignancy. BI-RADS CATEGORY: BI-RADS Category: 2 Benign. Recommendation: Annual Screening. Recommended Date: 1 Year. Laterality: Bilateral. For any future breast imaging appointments, please call [phone]). MACRO: None Signed by: Renard Allen 04/10/2024 9:21 AM Dictation workstation: [id number] [facility] Interpreted By: Renard Allen, STUDY: BI MAMMO BILATERAL SCREENING TOMOSYNTHESIS; 04/10/2024 8:47 am ACCESSION NUMBER(S): [id number] ORDERING CLINICIAN: ROSALINO CARMONA INDICATION: Screening. ,Z12. Encounter for screening mammogram for malignant neoplasm of breast COMPARISON: 04/03/2022, 04/04/2023 FINDINGS: 2D and tomosynthesis images were reviewed at 1 mm slice thickness. Density: The breasts are almost entirely fatty. No suspicious masses or calcifications are identified. Dystrophic calcifications are present in both breasts. CAD [facility] utilized. [facility] Renard Allen MD - 04/10/2024 Interpreted By: Renard Allen, STUDY: BI MAMMO BILATERAL SCREENING TOMOSYNTHESIS; 04/10/2024 8:47 am ACCESSION NUMBER(S): [id number] ORDERING CLINICIAN: ROSALINO CARMONA INDICATION: Screening. ,Z12.31 [...] any future breast imaging appointments, please call [phone] ([phone]). MACRO: None Signed by: Renard Allen 04/10/2024 9:21 AM Dictation workstation: [id number] [facility] Work Phone: Radiology Study observation (narrative) [facility] Work Phone: DBT Breast - bilateralOrdere d By: Renard Allen on 04-10-2024 [facility] Work Phone: [facility] TRICIA GRANADOS ([id number]) 1940 F Date Time Provider Department 03/25/24 ROSALINO CARMONA [facility] During your visit today, we recorded the following information about you: Juliann Caban LPN 03/25/2024 1:19 PM Signed Patient calling she received her reminder to get mamm order. She does at [facility] in [place]. Last year was done on 04/09/2023. She wants a 3 D mamm faxed to [phone]. Pending order. Please advise Harmeet Carmona LPN 03/26/2024 4:34 PM Signed Order faxed to as requested. Sent via [employer]. Patient notified. Allergies As of Date: 03/25/2024 Noted Allergy Reaction CAFFEINE 02/16/2014 5 - Intolerance Date Reviewed: 01/24/2024 Reviewed by: Orquidea Robertson APRN.CARPET INSPECTOR - Fully Assessed Reason for Visit: Orders [681] Primary Visit Diagnosis:Screening mammogram for breast cancer [Z12.31] Order(s):MC SCREENING Drew MALDONADO [[id number]] Order #: [id number] FUTURE Prescriptions as of 03/26/2024 - hydrOXYzine [...] Status:Closed by HARMEET CARMONA on 03/26/24 Normal [facility] Cardiology Visit Reporton Cardiology Visit Report [facility] [address] [place] [address] OFFICE VISIT Date of Service: 03/10/24 MR#: [id number] Acct: [id number] Name: TRICIA GRANADOS Rep #: [id number] : 1940 Provider: SAMANTHA Pendleton Age/Sex: 83/F Location[place] [facility] Status: Signed HPI HPI History of Present [...] Monitor Intake Visit Reasons: 1 Y 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 Normal [facility] CNOVon 03-02-2024 CNOV Office Visit (ORTHWS ) DARWINTRICIA ([id number]) 1940 F Date Time Provider Department 03/02/24 [...] knee joints Informed Consent Consent Obtained: Verbal Mcallen Protocol A moment to CARE was completed. [...] completed when applicable Referring Provider: BREANNA CANSECO [[id number]] Allergies As of Date: 03/02/2024 Noted Allergy Reaction CAFFEINE 02/16/2014 5 - Intolerance Date Reviewed: 01/24/2024 Reviewed by: Orquidea Robertson APRN.CARPET INSPECTOR - Fully Assessed Primary Visit Diagnosis:Primary osteoarthritis of both knees [M17.0] Order(s):Large Joint Arthro/Inj: bilateral knee joints [LAZ675] Order #: [id number] [] betamethasone acetate-betamethasone sodium phosphate 6 mg [...] Encounter Status:Closed by BREANNA CANSECO on 03/02/24 [facility] Large Joint Arthro/Inj: bila teral knee jointson 03-02-2024 Breanna Canseco PA -C 03/02/2024 9:26 AM Large Joint Arthro/Inj: bilateral knee joints Informed Consent Consent Obtained: Verbal Mcallen Protocol A moment to CARE was completed. [...] Plan of Care Visit completed when applicable [facility] XR KNEE 4V AP/PA/LAT/MERCH B ILon [...] the knees. Mild degenerative change, as described. Book Jacket Cover Machine Operator: SKYLER Transcribe Date/Time: Dec 26 2023 1:07P Dictated by : VAMSI NGUYEN MD This examination was interpreted and the report reviewed and electronically signed by: VAMSI NGUYEN MD on Dec 26 2023 1:17PM EST [id number] [facility] XR Knee - bilateral 4 Viewso n 12-26-2023 IMPRESSION: No acute fracture or dislocation of the knees. Mild degenerative change, as described. Book Jacket Cover Machine Operator: SKYLER Transcribe Date/Time: Dec 26 2023 1:07P Dictated by : VAMSI NGUYEN MD This examination was interpreted and the report reviewed and electronically signed by: VAMSI NGUYEN MD on Dec 26 2023 1:17PM EST [facility] * * *Final Report* * * [...] superior pole patella. No radiopaque foreign body. [facility]26/[facility]23 * * *Final Report* [...] the knees. Mild degenerative change, as described. Book Jacket Cover Machine Operator: PSCB Transcribe Date/Time: Dec 26 2023 1:07P Dictated by : VAMSI NGUYEN MD This examination was interpreted and the report reviewed and electronically signed by: VAMSI NGUYEN MD on Dec 26 2023 1:17PM EST [facility] Radiology Study observation (narrative) [facility] XR Knee - bilateral 4 ViewsO rdered By: Ccf Provider on 12-26-2023 [facility] Large Joint Arthro/Inj: bishnu gregory knee jointson 11-25-2023 Breanna Canseco PA -C 11/25/2023 8:39 AM Large Joint Arthro/Inj: bilateral knee joints Informed Consent Consent Obtained: Verbal Mcallen Protocol A moment to CARE was completed. [...] instruments, equipment or retained foreign bodies applicable. [facility] Large Joint Arthro/Inj: bishnu gregory knee jointson 08-19-2023 Breanna Canseco PA -C 08/19/2023 10:12 AM Large Joint Arthro/Inj: bilateral knee joints Informed Consent Consent Obtained: Verbal Mcallen Protocol A moment to CARE was completed. [...] instruments, equipment or retained foreign bodies applicable. [facility] DIGITAL MAMM SCREENING W/ TO Pace 04-03-2022 DIGITAL MAMM SCREENING W/ JOEL Patient Name: TRICIA GRANADOS STUDY: DIGITAL MAMM SCREENING W/ JOEL; 04/03/2022 9:15 am ACCESSION NUMBER(S): [id number] ORDERING CLINICIAN: ROSALINO CARMONA INDICATION: Screening. COMPARISON: [...] any future breast imaging appointments, please call [phone]). Electronically signed by: RENARD ALLEN MD [facility] No Panel Informationon 12-18 [facility] XR Knee - bilateral 4 Viewso n 10-15-2021 IMPRESSION: Stable degenerative changes as detailed in report. Book Jacket Cover Machine Operator: PSCB Transcribe Date/Time: Oct 15 2021 9:25A [...] are unremarkable. [id number] E_DIVISION OF RADIOLOGY Provider, [facility] - 10/15/2021 * * *Final Report* * [...] Stable degenerative changes as detailed in report. Book Jacket Cover Machine Operator: PSCB Transcribe Date/Time: Oct 15 2021 9:25A Dictated by : JULIANN LEON MD This examination was interpreted and the report reviewed and electronically signed by: JULIANN LEON MD on Oct 15 2021 9:30AM EST [facility] XR Knee - bilateral 4 ViewsO rdered By: Ccf Provider on 10-15-2021 [facility] XR Knee - bilateral 4 Viewso n 10-14-2021 Radiology Study observation (narrative) [facility] MA Mamm Screen w/CAD if perf ormed bilaton 01-01-2019 MA Mamm Screen w/CAD if performed bilat Exam Date/Time: 01/01/2019 08:26 EDT Reason for Exam: SCREENING Report STUDY: Digital mammography screening; 01/01/2019 8:26 am ACCESSION NUMBER(S): [id number] ORDERING CLINICIAN: Rosalino Carmona INDICATION: Screening. COMPARISON: [...] 2-Benign finding Recommendation: Normal interval follow-up Normal [facility] Office Visiton 02-05-2017 Documentation of current medications (procedure) Done Invalid Interpretation Code tuul Work Phone: Fall risk assessment No Invalid Interpretation Code tuul Work Phone: [phone] Office Visiton 01-23-2016 Dietary management education, guidance, and counseling (procedure) yes Invalid Interpretation Code [facility] Work Phone: [phone] Tobacco use CPHS Never smoker Invalid Interpretation Code [facility] Work Phone: [phone] Clinical Lists Update: Pre certified social workers in health care 01-20-2016 Left ventricular Ejection fraction 65 % Invalid Interpretation Code [facility] Work Phone: [phone] Clinical Lists Update: Pre certified social workers in health care 05-20-2015 Alanine aminotransferase (ALT) 18 U/L Invalid Interpretation Code [facility] Work Phone: [phone] Albumin 4.3 g/dL Invalid Interpretation Code [facility] Work Phone: [phone] Alkaline phosphatase (ALP) 85 U/L Invalid Interpretation Code [facility] Work Phone: [phone] Aspartate aminotransferase (AST) 19 U/L Invalid Interpretation Code [facility] Work Phone: [phone] Bilirubin (total) 0.5 mg/dL Invalid Interpretation Code [facility] Work Phone: [phone] BUN/Creatinine Ratio 17.0 mg/mg Invalid Interpretation Code [facility] Work Phone: [phone] Calcium 9.4 mg/dL Invalid Interpretation Code [facility] Work Phone: [phone] Chloride 107 mmol/L Invalid Interpretation Code [facility] Work Phone: [phone] Cholesterol 190 mg/dL Invalid Interpretation Code [facility] Work Phone: [phone] Cholesterol to HDL Ratio 4 {ratio} Invalid Interpretation Code [facility] Work Phone: [phone] CO2 27.2 mmol/L Invalid Interpretation Code [facility] Work Phone: [phone] Creatinine 1.0 mg/dL Invalid Interpretation Code [facility] Work Phone: [phone] Erythrocyte distribution width Auto Ratio (RBC) 13.1 % Invalid Interpretation Code [facility] Work Phone: [phone] Erythrocytes (RBC) 4.37 10*6/uL Invalid Interpretation Code [facility] Work Phone: [phone] Globulin 3.3 g/dL Invalid Interpretation Code [facility] Work Phone: [phone] Glucose mass conc 103 mg/dL High [facility] Work Phone: [phone] HDL Cholesterol 52 mg/dL Invalid Interpretation Code [facility] Work Phone: [phone] Hematocrit (HCT) 40.8 % Invalid Interpretation Code [facility] Work Phone: [phone] Hemoglobin mass conc (Bld) 13.6 g/dL Invalid Interpretation Code [facility] Work Phone: [phone] LDL Cholesterol 99 mg/dL Invalid Interpretation Code [facility] Work Phone: [phone] MCH 31.2 pg High [facility] Work Phone: [phone] MCHC mass conc (RBC) 33.4 g/dL Invalid Interpretation Code [facility] Work Phone: [phone] MCV 93.4 fL Invalid Interpretation Code [facility] Work Phone: [phone] Platelets 238 10*3/mm3 Invalid Interpretation Code [facility] Work Phone: [phone] PMV by Khushi 10.6 fL Invalid Interpretation Code [facility] Work Phone: [phone] Potassium molar conc 4.4 mmol/L Invalid Interpretation Code [facility] Work Phone: [phone] Protein 7.6 g/dL Invalid Interpretation Code [facility] Work Phone: [phone] Sodium 140 mmol/L Invalid Interpretation Code [facility] Work Phone: [phone] Triglyceride 195 mg/dL High [facility] Work Phone: [phone] Urea nitrogen 17 mg/dL Invalid Interpretation Code [facility] Work Phone: [phone] very low density lipoproteins 39 mg/dL Invalid Interpretation Code [facility] Work Phone: [phone] WBC (Leukocytes) 9.1 10*3/uL Invalid Interpretation Code [facility] Work Phone: [phone] Office Visiton 02-15-2015 cardiac risk group B Invalid Interpretation Code [facility] Work Phone: [phone] General cardiovascular disease 10Y risk [#] [place].Argenis'Mendez rae 15 % Invalid Interpretation Code [facility] Work Phone: [phone] Lab Report: Drawn @ [facility] 04-10-2013 MCHC mass conc (RBC) 34.1 % Invalid Interpretation Code [facility] Work Phone: [phone] Lab Report: Ordered by Dr. Muriel joseph 04-10-2013 Albumin/Globulin Ratio 2.3 {ratio} Invalid Interpretation Code [facility] Work Phone: [phone] Clinical Lists Update: Prelo certified social workers in health care 02-25-2012 Anion gap 11 mmol/L Invalid Interpretation Code [facility] Work Phone: [phone] Thyroid stimulating hormone (TSH) 9.57 u[iU]/mL High [facility] Work Phone: [phone] Panel Information [facility] Vital Signs Date Time Vital Sign Value Performing Clinician Facility 01-08-2025 10:09-0400 Body height 167.[address] Rosalino Carmona MD Work Phone: [phone] [place] [address] 01-08-2025 10:09-0400 Diastolic blood pressure 50 mm[Hg] Dr. Rosalino Carmona MD Work Phone: [phone] [place] [address] 01-08-2025 10:09-0400 Systolic blood pressure 136 mm[Hg] Dr. Rosalino Carmona MD Work Phone: [phone] [place] [address] 01-08-2025 10:06-0400 Body mass index (BMI) [Ratio] 29.8 kg/m2 Dr. Rosalino Carmona MD Work Phone: [phone] [place] [address] 01-08-2025 10:06-0400 Body weight 83.[address] Rosalino Carmona MD Work Phone: [phone] [place] [address] 01-08-2025 10:06-0400 Heart rate 62 /min Dr. Rosalino Carmona MD Work Phone: [facility] 01-08-2025 10:06-0400 Respiratory rate 18 /min Dr. Rosalino Carmona MD Work Phone: [facility] 01-08-2025 10:06-0400 SaO2% (BldA) [Mass fraction] 97 % Dr. Rosalino Carmona MD Work Phone: [facility] 12-02-2024 08:24-0400 Body mass index (BMI) [Ratio] 30.41 kg/m2 Rosalino Carmona MD Work Phone: [facility] 12-02-2024 08:24-0400 Body weight 85.46 kg Rosalino Carmona MD Work Phone: [facility] 12-02-2024 08:24-0400 Diastolic blood pressure 60 mm[Hg] Rosalino Carmona MD Work Phone: [facility] 12-02-2024 08:24-0400 Heart rate 47 /min Rosalino Carmona MD Work Phone: [facility] 12-02-2024 08:24-0400 SaO2% (BldA) [Mass fraction] 97 % Rosalino Carmona MD Work Phone: [facility] 12-02-2024 08:24-0400 Systolic blood pressure 110 mm[Hg] Rosalino Carmona MD Work Phone: [facility] 05-26-2024 08:23-0500 Diastolic blood pressure 58 mm[Hg] Orquidea Suppan LAMP 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 Work Phone: [facility] 05-26-2024 08:23-0500 Systolic blood pressure 130 mm[Hg] Orquidea Suppan LAMP 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 Work Phone: [facility] 05-26-2024 07:59-0500 Body height 167.6 cm Orquidea Suppan LAMP 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 Work Phone: [facility] 05-26-2024 07:59-0500 Body mass index (BMI) [Ratio] 31.47 kg/m2 Orquidea Suppan LAMP 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 Work Phone: [facility] 05-26-2024 07:59-0500 Body weight 88.45 kg Orquidea Suppan LAMP 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 Work Phone: [facility] 05-26-2024 07:59-0500 Heart rate 75 /min Orquidea Suppan LAMP 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 Work Phone: [facility] 04-28-2024 14:34-0500 Body height 167.6 cm Rosalino Carmona MD Work Phone: [facility] 04-28-2024 14:34-0500 Body mass index (BMI) [Ratio] 31.96 kg/m2 Rosalino Carmona MD Work Phone: [facility] 04-28-2024 14:34-0500 Body weight 89.81 kg Rosalino Carmona MD Work Phone: [facility] 04-28-2024 14:34-0500 Diastolic blood pressure 60 mm[Hg] Rosalino Carmona MD Work Phone: [facility] 04-28-2024 14:34-0500 Heart rate 65 /min Rosalino Carmona MD Work Phone: [facility] 04-28-2024 14:34-0500 SaO2% (BldA) [Mass fraction] 99 % Rosalino Carmona MD Work Phone: [facility] 04-28-2024 14:34-0500 Systolic blood pressure 166 mm[Hg] Rosalino Carmona MD Work Phone: [facility] 04-10-2024 08:48-0500 Body height 167.6 cm [facility] 04-10-2024 08:48-0500 Body mass index (BMI) [Ratio] 30.99 kg/m2 [facility] 04-10-2024 08:48-0500 Body weight 87.09 kg [facility] 01-24-2024 07:50-0400 Diastolic blood pressure 56 mm[Hg] Orquidea Suppan LAMP 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 Work Phone: [facility] 01-24-2024 07:50-0400 Heart rate 74 /min Orquidea Suppan LAMP 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 Work Phone: [facility] 01-24-2024 07:50-0400 Respiratory rate 16 /min Orquidea Suppan LAMP 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 Work Phone: [facility] 01-24-2024 07:50-0400 SaO2% (BldA) [Mass fraction] 97 % Orquidea Suppan LAMP 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 Work Phone: [facility] 01-24-2024 07:50-0400 Systolic blood pressure 170 mm[Hg] Orquidea Suppan LAMP 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 Work Phone: [facility] 12-27-2023 09:43-0400 Diastolic blood pressure 68 mm[Hg] Orquidea Suppan LAMP 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 Work Phone: [facility] 12-27-2023 09:43-0400 Systolic blood pressure 146 mm[Hg] Orquidea Suppan LAMP 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 Work Phone: [facility] 12-27-2023 09:39-0400 Body mass index (BMI) [Ratio] 34.22 kg/m2 Orquidea Suppan LAMP 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 Work Phone: [facility] 12-27-2023 09:39-0400 Body weight 96.16 kg Orquidea Suppan LAMP 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 Work Phone: [facility] 12-27-2023 09:39-0400 Heart rate 65 /min Orquidea Suppan LAMP 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 Work Phone: [facility] 12-27-2023 09:39-0400 SaO2% (BldA) [Mass fraction] 98 % Orquidea Suppan LAMP 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 Work Phone: [facility] 10-18-2022 08:55-0400 Diastolic blood pressure 80 mm[Hg] Rosalino Carmona MD Work Phone: [facility] 10-18-2022 08:55-0400 Systolic blood pressure 136 mm[Hg] Rosalino Carmona MD Work Phone: [facility] 10-18-2022 08:34-0400 Body weight 93.89 kg Rosalino Carmona MD Work Phone: [facility] 10-18-2022 08:34-0400 Heart rate 60 /min Rosalino Carmona MD Work Phone: [facility] 10-18-2022 08:34-0400 SaO2% (BldA) [Mass fraction] 98 % Rosalino Carmona MD Work Phone: [facility] 04-18-2022 10:56-0500 Diastolic blood pressure 100 mm[Hg] Rosalino Carmona MD Work Phone: [facility] 04-18-2022 10:56-0500 Systolic blood pressure 180 mm[Hg] Rosalino Carmona MD Work Phone: [facility] 04-18-2022 10:22-0500 Body temperature 98.01 [degF] Rosalino Carmona MD Work Phone: [facility] 04-18-2022 10:22-0500 Body weight 95.53 kg Rosalino Carmona MD Work Phone: [facility] 04-18-2022 10:22-0500 Heart rate 71 /min Rosalino Carmona MD Work Phone: [facility] 04-18-2022 10:22-0500 Respiratory rate 16 /min Rosalino Carmona MD Work Phone: [facility] 10-14-2021 08:13-0400 Body weight 95.25 kg Rosalino Carmona MD Work Phone: [facility] 10-14-2021 08:13-0400 Diastolic blood pressure 90 mm[Hg] Rosalino Carmona MD Work Phone: [facility] 10-14-2021 08:13-0400 Heart rate 62 /min Rosalino Carmona MD Work Phone: [facility] 10-14-2021 08:13-0400 Respiratory rate 16 /min Rosalino Carmona MD Work Phone: [facility] 10-14-2021 08:13-0400 SaO2% (BldA) [Mass fraction] 97 % Rosalino Carmona MD Work Phone: [facility] 10-14-2021 08:13-0400 Systolic blood pressure 160 mm[Hg] Rosalino Carmona MD Work Phone: [facility] 02-05-2017 09:45-0400 BMI (Body Mass Index) 31.01 [...] Facility Start: 02-11-2025 End: 02-11-2025 [facility] Start: 01-08-2025 End: 01-08-2025 Patient encounter procedure Demetrice SINGH -[facility] Work Phone: Start: 01-08-2025 End: 01-08-2025 ambulatory Rosalino Carmona [place] Start: 01-05-2025 End: 01-05-2025 [facility] Facility:[facility] Start: 12-28-2024 End: 12-28-2024 Patient encounter procedure Breanna Canseco PA-C Work Phone: Orthopaedics Comment on above: Primary osteoarthrit is of both knees (Primary Dx) Start: 12-28-2024 End: 12-28-2024 ambulatory BREANNA CANSECO Facility:[facility] Start: 12-22-2024 End: 12-22-2024 Follow-up encounter Orquidea Robertson APRN.CARPET INSPECTOR Work Phone: [facility] Start: 12-18-2024 End: 12-18-2024 ambulatory [facility] Facility:[facility] Start: 12-10-2024 End: 12-10-2024 Telephone encounter Rosalino Carmona MD Work Phone: [facility] Comment on above: Results Start: 12-09-2024 End: 12-09-2024 ambulatory [facility] Facility:[facility] Start: 12-02-2024 End: 12-02-2024 Patient encounter procedure Rosalino Carmona MD Work Phone: [facility] Comment on above: Primary hypertension (Primary Dx); Paroxysmal atrial fibrillation (HCC); Chronic anticoagulation; Anxiety; Bacterial sinusitis; Fatigue, unspecified type Start: 12-02-2024 End: 12-02-2024 ambulatory [facility] Facility:[facility] Start: 09-21-2024 End: 09-21-2024 Patient encounter procedure Breanna Canseco PA-C Work Phone: Orthopaedics Comment on above: Primary osteoarthrit is of both knees (Primary Dx) Start: 09-21-2024 End: 09-21-2024 ambulatory [facility] Facility:[facility] Start: 07-10-2024 End: 07-10-2024 [facility] Facility:[facility] Start: 06-08-2024 End: 06-08-2024 ambulatory [facility] Facility:[facility] Start: 06-08-2024 End: 06-08-2024 Patient encounter procedure Breanna Canseco PA-C Work Phone: Orthopaedics Comment on above: Primary osteoarthrit is of both knees (Primary Dx) Start: 05-26-2024 End: 05-26-2024 Office outpatient visit 15 minutes Orquidea Robertson APRN.CARPET INSPECTOR Work Phone: [facility] Comment on above: Acute recurrent maxi llary sinusitis (Primary Dx); Anxiety; Primary hypertension Start: 05-26-2024 End: 05-26-2024 ambulatory ORQUIDEA ROBERTSON Facility:[facility] Start: 05-05-2024 End: 05-05-2024 Telephone encounter Rosalino Carmona MD Work Phone: [facility] Comment on above: Patient Update; Bridgette ent Question Start: 04-28-2024 End: 04-28-2024 Patient encounter procedure Rosalino Carmona MD Work Phone: [facility] Comment on above: Paroxysmal atrial fi brillation (HCC) (Primary Dx); Primary hypertension; Stage 3a chronic kidney disease (HCC); Chronic anticoagulation; Anxiety; Screening for depression Start: 04-28-2024 End: 04-28-2024 ambulatory ROSALINO CARMONA Facility:[facility] Start: 04-28-2024 End: 04-29-2024 Telephone encounter Rosalino Carmona MD Work Phone: [facility] Comment on above: Medication Problem Start: 04-10-2024 End: 04-10-2024 Telephone encounter Rosalino Carmona MD Work Phone: [facility] Comment on above: Results Start: 04-10-2024 End: 04-10-2024 Subsequent hospital visit by physician Lg Gallo [facility] Comment on above: Encounter for screen ing mammogram for malignant neoplasm of breast Start: 04-10-2024 End: 04-10-2024 ambulatory [facility] Start: 03-25-2024 End: 03-26-2024 Telephone encounter Rosalino Carmona MD Work Phone: [facility] Comment on above: Orders Start: 03-13-2024 ambulatory [facility] Start: 03-13-2024 End: 03-13-2024 ambulatory [facility] Facility:[facility] Start: 03-10-2024 End: 03-10-2024 ambulatory [facility] Facility:[facility] Start: 03-02-2024 End: 03-02-2024 ambulatory BREANNA CANSECO Facility:[facility] Start: 03-02-2024 End: 03-02-2024 Patient encounter procedure Breanna Canseco PA-C Work Phone: Orthopaedics Comment on above: Primary osteoarthrit is of both knees (Primary Dx) Start: 01-27-2024 End: 01-27-2024 Telephone encounter Orquidea Robertson APRN.CNP Work Phone: [facility] Comment on above: Results Start: 01-24-2024 End: 01-24-2024 Office outpatient visit 25 minutes Orquidea Robertson APRN.ALEXX Work Phone: [facility] Comment on above: Anxiety (Primary Dx) ; Acute bronchitis, unspecified organism; Primary hypertension; Chronic fatigue; Stage 3a chronic kidney disease (HCC); Chronic anticoagulation; Screening for lipid disorders; Paroxysmal atrial fibrillation (HCC); Disorder of iron metabolism, unspecified Start: 01-14-2024 End: 01-14-2024 ambulatory Cherelle Rush RN Work Phone: [facility] Start: 01-14-2024 End: 01-14-2024 Telephone follow-up Cherelle Rush RN Work Phone: [facility] Comment on above: Transition Of Care ( [facility] Follow-up Day 22) Started Weekly phone contact (Recurring) for Transitional Care Management Start: 01-09-2024 End: 01-09-2024 Telephone encounter Orquidea Robertson APRN.CARPET INSPECTOR Work Phone: [facility] Comment on above: Patient Question Start: 01-07-2024 End: 01-07-2024 ambulatory Cherelle Rush RN Work Phone: [facility] Start: 01-07-2024 End: 01-07-2024 Telephone follow-up Cherelle Rush RN Work Phone: [facility] Comment on above: Transition Of Care ( [facility] Follow-up Day 15) Started Weekly phone contact (Recurring) for Transitional Care Management Start: 12-31-2023 End: 12-31-2023 ambulatory Cherelle Rush RN Work Phone: [facility] Start: 12-31-2023 End: 12-31-2023 Telephone follow-up Cherelle Rush RN Work Phone: [facility] Comment on above: Transition Of Care ( [facility] Follow-up Day 18) Started Weekly phone contact (Recurring) for Transitional Care Management Start: 12-27-2023 End: 12-30-2023 Telephone encounter Rosalino Carmona MD Work Phone: [facility] Comment on above: Insurance Authorizat ion (hydroxyzine) Start: 12-27-2023 End: 12-27-2023 Office outpatient visit 25 minutes Orquidea Robertson APRN.CNP Work Phone: [facility] Comment on above: Primary hypertension (Primary [...] encounter Start: 12-26-2023 ambulatory BREANNAAngeline CANSECO Facilit y:[facility] Start: 12-26-2023 End: 12-26-2023 Subsequent hospital [...] Patient Outreach Cherelle Rush RN Work Phone: [facility] Comment on above: Transition Of Care ( [facility] Discharge 12/23/23) Initial phone contact for Transitional Care Management, Started Weekly phone contact (Recurring) for Transitional Care Management Start: 12-20-2023 End: 12-20-2023 Telephone encounter Rosalino Carmona MD Work Phone: [facility] Comment on above: Patient Update Start: 11-25-2023 End: 11-25-2023 Subsequent hospital visit by physician Xr [facility] Gonsalo Work Phone: Radiology Comment on [...] Telephone encounter Rosalino Carmona MD Work Phone: [address] [place] [address] Comment on above: Orders Start: 02-04-2023 End: [...] encounter procedure Rosalino Carmona MD Work Phone: [facility] Comment on above: Paroxysmal atrial fi brillation (HCC) (Primary Dx); Primary hypertension; Stage 3a chronic kidney disease (HCC); Chronic anticoagulation; Anxiety Start: 10-17-2022 Orders Only Breanna Brandeeyesica angeles PA-C Work Phone: Orthopaedics Comment on above: Pain in both knees, unspecified chronicity (Primary Dx) Start: 10-15-2022 Telephone encounter Britney Joaquín Richard PA-C Work Phone: [facility] Comment on above: Results Start: 07-16-2022 End: 07-16-2022 Patient encounter procedure Breannadra Canseco PA-C Work Phone: Orthopaedics Comment on above: Chronic pain of both knees (Primary Dx); Primary osteoarthritis of both knees Start: 04-19-2022 Telephone encounter Rosalino Carmona MD Work Phone: [facility] Comment on above: Results Erroneous encounter- disregard Start: 04-18-2022 End: 04-18-2022 Patient encounter procedure Rosalino Carmona MD Work Phone: [facility] Comment on above: Paroxysmal atrial fi brillation (HCC) (Primary Dx); LBBB (left bundle branch block); Primary hypertension; Stage 3a chronic kidney disease (HCC); Chronic anticoagulation; Anxiety; Bacterial sinusitis Start: 04-03-[address] Rosalino Carmona Facility:[id number] Start: 03-12-2022 Telephone encounter Rosalino Carmona MD Work Phone: [address] [place] [address] Comment on above: Orders Start: 03-12-2022 End: 03-12-2022 Patient encounter procedure Breanna Canseco PA-C Work Phone: Orthopaedics Comment on above: Chronic pain of both knees (Primary Dx); Primary osteoarthritis of both knees Start: 12-18-2021 End: 12-18-2021 Subsequent hospital visit by physician [facility] Brush Work Phone: Radiology Comment on above: Chronic pain of both knees [M25.561, M25.562, G89.29] Start: 12-18-2021 End: 12-18-2021 Patient encounter procedure Breanna Vetovitz PA-C Work Phone: Orthopaedics Comment on above: Primary osteoarthrit is of both knees (Primary Dx); Chronic pain of both knees Start: 10-14-2021 End: 10-14-2021 Subsequent hospital visit by physician [facility] Work Phone: Radiology Comment on above: Chronic pain of both knees [M25.561, M25.562, G89.29] Start: 10-14-2021 End: 10-14-2021 Patient encounter procedure Rosalino Carmona MD Work Phone: [facility] Comment on above: Paroxysmal atrial fi [...] Author Start: 12-19-2027 Diabetes Screening Diabetes Screening [facility] Start: 12-10-2027 Diabetes Screening Diabetes Screening [facility] Start: 01-23-2027 Diabetes Screening Diabetes Screening [facility] Start: 04-09-2026 Diabetes Screening Diabetes Screening [facility] Start: 10-13-2025 DIABETES SCREEN DIABETES SCREEN [facility] Start: 10-13-2025 Diabetes Screening Diabetes Screening [facility] Start: 06-11-2025 End: 06-11-2025 Patient encounter procedure 06/11/2025 8:00 AM EST Office Visit [facility] [address] [place], [place] [id number] Rosalino Carmona MD [address] [place], [place] [id number] medicare wellness [facility] Comment on above: medicare wellness Start: 04-28-2025 Covid-19 Vaccine () Covid-19 Vaccine () [facility] Comment on above: Postponed from 12/22/2023 (Declined at t his time) Start: 04-28-2025 Depression Screening Depression Screening [facility] Start: 04-28-2025 RSV Vaccine (1 - 1-dose 75+ series) RSV Vaccine (1 - 1-dose 75+ series) [facility] Comment on above: Postponed from 09/05/2015 (Declined at t his time) Start: 04-18-2025 DIABETES SCREEN DIABETES SCREEN [facility] Start: 03-29-2025 End: 03-29-2025 Patient encounter procedure 03/29/2025 8:30 AM EST Office Visit Orthopaedics [address] [place] [address] Breanna Canseco PA-C [address] [place] [address] 91 day follow up B/L knees Orthopaedics Comment on above: 91 day follow up B/L knees Start: 02-21-2025 End: 05-23-2025 Thyrotropin [Units/volume] in Serum or Plasma THYROID STIMULATING HORMONE Lab Routine Hypothyroidism, acquired Expected: 02/21/2025, Expires: 05/23/[address] [facility] Work Phone: Comment on above: Expected: 02/21/2025, Expires: Start: 02-21-2025 End: 05-23-2025 Thyroxine (T4) free [Mass/volume] in Serum or Plasma T4 FREE/FREE THYROXINE Lab Routine Hypothyroidism, acquired Expected: 02/21/2025, Expires: 05/23/2025 [facility] Comment on above: Expected: 02/21/2025, Expires: Start: 01-23-2025 Diabetes mellitus screening Diabetes Screening [facility] Start: 01-23-2025 Shingrix Vaccine (1 of 2) Shingrix Vaccine (1 of 2) [facility] Comment on above: Postponed from 1990 (Insurance Cov erage) Start: 01-23-2025 Urine microalbumin profile DTaP,Tdap,Td Vaccine (1 - Tdap) [facility] Comment on above: Postponed from 09/05/1959 (Insurance Cov erage) Start: 01-05-2025 End: 04-06-2025 Basic metabolic 2000 panel - Serum or Plasma BASIC METABOLIC PANEL Lab Routine Hyponatremia Expected: 01/05/2025, Expires: 04/06/2025 [facility] Comment on above: Expected: 01/05/2025, Expires: Start: 01-05-2025 End: 04-06-2025 Magnesium [Mass/volume] in Serum or Plasma MAGNESIUM Lab Routine Hyponatremia Expected: 01/05/2025, Expires: 04/06/2025 [facility] Comment on above: Expected: 01/05/2025, Expires: Start: 12-28-2024 End: 12-28-2024 Patient encounter procedure 12/28/2024 8:30 AM EDT Office Visit Orthopaedics [address] [place] [address] Breanna Canseco PA-C [address] [place] [address] 91 day follow up B/L knees Orthopaedics Comment on above: 91 day follow up B/L knees Start: 12-24-2024 End: 03-25-2025 Basic metabolic 2000 panel - Serum or Plasma BASIC METABOLIC PANEL Lab Routine Renal insufficiency Hypothyroidism, acquired Expected: 12/24/2024, Expires: 03/25/[address] [facility] Work Phone: Comment on above: Expected: 12/24/2024, Expires: Start: 12-24-2024 End: 03-25-2025 T4/FTI/T4U T4/FTI/T4U Lab Routine Renal insufficiency Hypothyroidism, acquired Expected: 12/24/2024, Expires: 03/25/2025 [facility] Comment on above: Expected: 12/24/2024, Expires: Start: 12-24-2024 End: 03-25-2025 Thyrotropin [Units/volume] in Serum or Plasma THYROID STIMULATING HORMONE Lab Routine Renal insufficiency Hypothyroidism, acquired Expected: 12/24/2024, Expires: 03/25/2025 [facility] Comment on above: Expected: 12/24/2024, Expires: Start: 12-24-2024 End: 03-25-2025 Triiodothyronine (T3) [Mass/volume] in Serum or Plasma T3 Lab Routine Renal insufficiency Hypothyroidism, acquired Expected: 12/24/2024, Expires: 03/25/2025 [facility] Comment on above: Expected: 12/24/2024, Expires: Start: 12-21-2024 Influenza vaccination [facility] Start: 12-02-2024 End: 03-02-2025 CBC W Auto Differential panel - Blood COMPLETE BLOOD COUNT AND DIFFERENTIAL Lab Routine Fatigue, unspecified type Expected: 12/02/2024, Expires: 03/02/[address] [facility] Work Phone: Comment on above: Expected: 12/02/2024, Expires: Start: 12-02-2024 End: 03-02-2025 Comprehensive metabolic 2000 panel - Serum or Plasma COMPREHENSIVE METABOLIC PANEL Lab Routine Fatigue, unspecified type Expected: 12/02/2024, Expires: 03/02/2025 [facility] Comment on above: Expected: 12/02/2024, Expires: Start: 12-02-2024 End: 03-02-2025 Lipid 1996 panel - Serum or Plasma LIPID PANEL, FASTING Lab Routine Primary hypertension Expected: 12/02/2024, Expires: 03/02/2025 [facility] Comment on above: Expected: 12/02/2024, Expires: Start: 12-02-2024 End: 03-02-2025 Thyrotropin [Units/volume] in Serum or Plasma THYROID STIMULATING HORMONE Lab Routine Fatigue, unspecified type Expected: 12/02/2024, Expires: 03/02/2025 [facility] Comment on above: Expected: 12/02/2024, Expires: Start: 12-02-2024 End: 12-02-2024 Patient encounter procedure 12/02/2024 8:40 AM EDT Office Visit [facility] Marques [address] [place], [place] [id number] Rosalino Carmona MD [address] [place] [address] 6 month follow up [facility] Comment on above: 6 month follow up Start: 10-19-2024 Influenza vaccination Influenza Vaccine (#1) [facility] Comment on above: Postponed from 12/22/2023 (Declined at t his time) Start: 10-09-2024 DIABETES SCREEN DIABETES SCREEN [facility] Start: 09-21-2024 End: 09-21-2024 Patient encounter procedure 09/21/2024 8:30 AM EDT Office Visit Orthopaedics [address] [place] [address] [facility] [place] [address] Breanna Canseco PA-C [address] [place] [address] 91 day follow up - cortisone injecction B/L knee Orthopaedics Comment on above: 91 day follow up - cortisone injecction B/L knee Start: 06-08-2024 End: 06-08-2024 Patient encounter procedure 06/08/2024 8:30 AM EST Office Visit Orthopaedics [address] [place] [address] Breanna Canseco PA-C [address] [place] [address] 91 day follow up - cortisone injecction B/L knee Orthopa[facility]ics Comment on above: 91 day follow up - cortisone injecction B/L knee Start: 05-26-2024 End: 05-26-2024 Patient encounter procedure 05/26/2024 8:00 AM EST Office Visit [facility] [address] [place] [address] Orquidea Robertson APRN.CARPET INSPECTOR [address] [place] [address] 4 week follow up axniety. started on Sertraline. BP check [facility] Comment on above: 4 week follow up axniety. started on Ser traline. BP check Start: 04-28-2024 End: 04-28-2024 Patient encounter procedure 04/28/2024 2:40 PM EST Office Visit Family [facility] [address] [place] [address] Rosalino Carmona MD [address] [place] [address] 3 month f/u [facility] Comment on above: 3 month f/u Start: 03-02-2024 End: 03-02-2024 Patient encounter procedure 03/02/2024 8:30 AM EST Office Visit Orthopaedics [address] [place] [address] Breanna Canseco PA-C [address] [place] [address] 91 day follow up - cortisone injecction B/L knee Orthopaedics Comment on above: 91 day follow up - cortisone injecction B/L knee Start: 01-24-2024 End: 04-24-2024 CBC W Auto Differential panel - Blood [facility] Work Phone: Comment on above: Expected: 01/24/2024, Expires: Start: 01-24-2024 End: 04-24-2024 Cobalamin (Vitamin B12) [Mass/volume] in Serum or Plasma [facility] Comment on above: Expected: 01/24/2024, Expires: Start: 01-24-2024 End: 04-24-2024 Comprehensive metabolic 2000 panel - Serum or Plasma [facility] Comment on above: Expected: 01/24/2024, Expires: Start: 01-24-2024 End: 04-24-2024 Hemoglobin A1c in Blood [facility] Comment on above: Expected: 01/24/2024, Expires: Start: 01-24-2024 End: 04-24-2024 LIPID PANEL, NONFASTING [facility] Comment on above: Expected: 01/24/2024, Expires: Start: 01-24-2024 End: 04-24-2024 Magnesium [Mass/volume] in Serum or Plasma [facility] Comment on above: Expected: 01/24/2024, Expires: Start: 01-24-2024 End: 04-24-2024 Thyrotropin [Units/volume] in Serum or Plasma [facility] Comment on above: Expected: 01/24/2024, Expires: Start: 01-24-2024 End: 01-24-2024 Patient encounter procedure 01/24/2024 8:00 AM EDT Office Visit [facility] [address] [place] [address] Orquidea Robertson APRN.CARPET INSPECTOR [address] [place] [address] 4 week BP f/u [facility] Comment on above: 4 week BP f/u Start: 12-27-2023 End: 12-27-2023 Patient encounter procedure 12/27/2023 9:20 AM EDT Office Visit [facility] [address] [place] [address] Orquidea Robertson APRN.CARPET INSPECTOR [address] [place] [address] follow up from [facility] for nose bleeds [facility] Comment on above: follow up from [facility] for nose bleeds Start: 12-26-2023 End: 12-26-2023 Patient encounter procedure Radiology Comment on above: follow up fall- knee pain R>L Start: 12-25-2023 End: 12-25-2023 Patient encounter procedure 12/25/2023 9:00 AM EDT Office Visit [facility] [address] [place] [address] Rosalino Carmona MD [address] [place] [address] ER F/U [facility] 12/20/2023; Nose Bleed [facility] Comment on above: ER F/U [facility] 12/20/2023; Nose Bleed Start: 12-22-2023 COVID-19 Vaccine () COVID-19 Vaccine () [facility] Start: 12-22-2023 Covid-19 Vaccine () Covid-19 Vaccine () [facility] Start: 12-22-2023 Covid-19 Vaccine () Covid-19 Vaccine ( season) [facility] Start: 12-22-2023 Influenza vaccination [facility] Start: 11-25-2023 End: 11-25-2023 Patient encounter procedure 11/25/2023 8:00 AM EDT Office Visit Orthopaedics [address] [place] [address] Breanna Canseco PA-C [address] [place] [address] 91 DAY FOLLOW UP CORTISON INJECTIO B/L Orthopaedics Comment on above: 91 DAY FOLLOW UP CORTISON INJECTIO B/L Start: 10-19-2023 COVID-19 VACCINE (4 - Booster for Pfizer series) COVID-19 VACCINE (4 - Booster for Pfizer series) [facility] Comment on above: Postponed from 04/20/2021 (Declined at t his time) Start: 10-19-2023 COVID-19 VACCINE (4 - Pfizer series) COVID-19 VACCINE (4 - Pfizer series) [facility] Comment on above: Postponed from 04/20/2021 (Declined at t his time) Start: 10-19-2023 SHINGRIX VACCINE (1 of 2) SHINGRIX VACCINE (1 of 2) [facility] Comment on above: Postponed from 1990 (Declined at t his time) Start: 10-19-2023 Urine microalbumin profile [facility] Comment on above: Postponed from 09/05/1959 (Declined at t his time) Start: 04-22-2023 Advance Directive Discussion Advance Directive Discussion [facility] Start: 04-22-2023 Behavioral Health Screening Behavioral Health Screening [facility] Start: 04-19-2023 End: 06-19-2023 Basic metabolic 2000 panel - Serum or Plasma BASIC METABOLIC PNL Lab Routine Stage 3a chronic kidney disease (HCC) Expected: 04/19/2023, Expires: 06/19/[address] [facility] Work Phone: Comment on above: Expected: 04/19/2023, Expires: Start: 04-19-2023 End: 06-19-2023 CBC W Auto Differential panel - Blood CBC + DIFF Lab Routine Stage 3a chronic kidney disease (HCC) Expected: 04/19/2023, Expires: 06/19/[address] [facility] Work Phone: Comment on above: Expected: 04/19/2023, Expires: 4 Start: 12-21-2022 Covid-19 Vaccine () Covid-19 Vaccine () [facility] Start: 12-21-2022 Influenza vaccination [facility] Start: 10-14-2022 SHINGRIX VACCINE (1 of 2) SHINGRIX VACCINE (1 of 2) [facility] Comment on above: Postponed from 1990 (Insurance Cov erage) Start: 10-14-2022 Urine microalbumin profile DTAP,TDAP,TD (1 - Tdap) [facility] Comment on above: Postponed from 09/05/1959 (Insurance Cov erage) Start: 04-22-2022 ADVANCE DIRECTIVE DISCUSSION ADVANCE DIRECTIVE DISCUSSION [facility] Start: 04-22-2022 DEPRESSION ASSESSMENT DEPRESSION ASSESSMENT [facility] Start: 04-19-2022 End: 06-19-2022 CBC W Auto Differential panel - Blood CBC + DIFF Lab Routine Leukocytosis, unspecified type Expected: 04/19/2022, Expires: 06/19/[address] [facility] Work Phone: Comment on above: Expected: 04/19/2022, Expires: 3 Start: 04-15-2022 End: 06-15-2022 Basic metabolic 2000 panel - Serum or Plasma BASIC METABOLIC PNL Lab Routine Stage 3a chronic kidney disease (HCC) Expected: 04/15/2022, Expires: 06/15/[address] [facility] Work Phone: Comment on above: Expected: 04/15/2022, Expires: 3 Start: 04-15-2022 End: 06-15-2022 CBC W Auto Differential panel - Blood CBC + DIFF Lab Routine Primary hypertension Chronic anticoagulation Expected: 04/15/2022, Expires: 06/15/[address] [facility] Work Phone: Comment on above: Expected: 04/15/2022, Expires: 3 Start: 12-21-2021 Influenza vaccination INFLUENZA (#1) [facility] Start: 06-23-2021 COVID-19 VACCINE (4 - Booster for Pfizer series) COVID-19 VACCINE (4 - Booster for Pfizer series) [facility] Start: 04-22-2021 DEPRESSION ASSESSMENT DEPRESSION ASSESSMENT [facility] Start: 04-20-2021 COVID-19 VACCINE (4 - Booster for Pfizer series) COVID-19 VACCINE (4 - Booster for Pfizer series) [facility] Start: 02-06-2018 End: 02-06-2018 Appointment Appointment [facility] Work Phone: Start: 02-05-2017 End: 02-05-2017 PREDATORY ANIMAL HUNTER PREDATORY ANIMAL HUNTER [facility] Work Phone: Start: 02-05-2017 End: 02-05-2017 Follow Up Appt 1 year Follow Up Appt 1 year [facility] Work Phone: Start: 01-23-2016 End: 01-23-2016 Follow Up Appt 1 year Follow Up Appt 1 year [facility] Work Phone: Start: 01-23-2016 End: 01-23-2016 MMM MMM [facility] Work Phone: Start: 09-05-2015 RSV High Risk: (Elderly (60+) or Population) (1 - 1-dose 75+ series) RSV High Risk: (Elderly (60+) or Population) (1 - 1-dose 75+ series) [facility] Start: 09-05-2015 RSV Vaccine (1 - 1-dose 75+ series) RSV Vaccine (1 - 1-dose 75+ series) [facility] Start: 02-15-2015 End: 02-15-2015 PREDATORY ANIMAL HUNTER PREDATORY ANIMAL HUNTER [facility] Work Phone: Start: 02-15-2015 End: 02-15-2015 Follow Up Appt 1 year Follow Up Appt 1 year [facility] Work Phone: Start: 02-16-2014 End: 02-16-2014 PREDATORY ANIMAL HUNTER PREDATORY ANIMAL HUNTER [facility] Work Phone: Start: 02-16-2014 End: 02-16-2014 Follow Up Appt 1 year Follow Up Appt 1 year [facility] Work Phone: Start: 08-11-2013 End: 08-11-2013 PREDATORY ANIMAL HUNTER PREDATORY ANIMAL HUNTER [facility] Work Phone: Start: 08-11-2013 End: 02-16-2014 Follow Up Appt 6 months Follow Up Appt 6 months [facility] Work Phone: Start: 08-11-2013 End: 02-16-2014 MMM MMM [facility] Work Phone: Start: 01-07-2013 End: 01-07-2013 PREDATORY ANIMAL HUNTER PREDATORY ANIMAL HUNTER [facility] Work Phone: Start: 01-07-2013 End: 01-07-2013 Follow Up Appt 6 months Follow Up Appt 6 months [facility] Work Phone: Start: 07-11-2012 End: 07-11-2012 Follow Up Appt 6 months Follow Up Appt 6 months [facility] Work Phone: Start: 07-11-2012 End: 07-11-2012 MMM MMM [facility] Work Phone: Start: 11-22-2011 End: 11-22-2011 Follow Up Appt 6 months Follow Up Appt 6 months [facility] Work Phone: Start: 11-22-2011 End: 11-22-2011 Nuclear stress test -exercise Nuclear stress test -exercise [facility] Work Phone: Start: 09-20-2002 Medicare Annual Wellness Visit Medicare Annual Wellness Visit [facility] Start: 2000 RSV Vaccine (1 - 1-dose 60+ series) RSV Vaccine (1 - 1-dose 60+ series) [facility] Start: 1990 SHINGRIX VACCINE (1 of 2) SHINGRIX VACCINE (1 of 2) [facility] Start: 1990 Zoster Vaccines (1 of 2) Zoster Vaccines (1 of 2) [facility] Start: 05-16-1963 DTaP/Tdap/Td Vaccines (1 - Tdap) DTaP/Tdap/Td Vaccines (1 - Tdap) [facility] Start: 09-05-1959 Urine microalbumin profile [facility] Start: 1958 Depression Screening Depression Screening [facility] Start: 1940 Lipid panel Lipid Panel [facility] Start: 1940 Medicare Annual Wellness Visit Medicare Annual Wellness Visit (AWV) [facility] End: 04-24-2025 DBT Breast - bilateral screening [facility] SCREENING [facility] Radiology Routine Screening mammogram for breast cancer 1 Occurrences starting 03/25/2024 until 04/24/[address] [facility] Work Phone: Comment on above: 1 Occurrences starting 03/25/2024 until 04/24/2025 End: 04-11-2023 [facility] SCREENING W JO[facility] SCREEN[facility] Radiology Routine Encounter for screening mammogram for malignant neoplasm of breast 1 Occurrences starting 03/12/2022 until 04/11/[address] [facility] Work Phone: Comment on above: 1 Occurrences starting 03/12/2022 until 04/11/2023 End: 03-26-2024 [facility] SCREENING W JOEL [facility] SCREENING [facility] Radiology Routine Encounter for screening mammogram for malignant neoplasm of breast 1 Occurrences starting 02/25/2023 until 03/26/[address] [facility] Work Phone: Comment on above: 1 Occurrences starting 02/25/2023 until 03/26/2024 End: 12-24-2024 XR Knee - bilateral 4 Views XR KNEE GENERAL 4V AP BOTH/PA BOTH/LAT/MERC BILATERAL Radiology Routine Primary osteoarthritis of both knees Chronic pain of both knees 1 Occurrences starting 11/25/2023 until 12/24/[address] [facility] Work Phone: Comment on above: 1 Occurrences starting 11/25/2023 until 12/24/2024 XR Knee - bilateral 4 Views XR KNEE GENERAL 4V AP BOTH/PA BOTH/LAT/MERC BILATERAL Radiology Routine Primary osteoarthritis of both knees Chronic pain of both knees 11/25/2023 8:48 AM EDT [facility] End: 01-23-2025 XR Knee - bilateral 4 Views XR KNEE GENERAL 4V AP BOTH/PA BOTH/LAT/MERC BILATERAL Radiology Routine Acute pain of both knees 1 Occurrences starting 12/25/2023 until 01/23/[address] [facility] Work Phone: Comment on above: 1 Occurrences starting 12/25/2023 until 01/23/2025 XR KNEE GENERAL 4V A P BOTH/PA BOTH/LAT/MERC BILATERAL XR KNEE GENERAL 4V AP BOTH/PA BOTH/LAT/MERC BILATERAL Radiology Routine Chronic pain of both knees 10/14/2021 9:06 AM EDT [facility] Work Phone: End: 11-16-2023 XR KNEE GENERAL 4V AP BOTH/PA BOTH/LAT/MERC BILATERAL XR KNEE GENERAL 4V AP BOTH/PA BOTH/LAT/MERC BILATERAL Radiology Routine Pain in both knees, unspecified chronicity 1 Occurrences starting 10/17/2022 until 11/16/[address] [facility] Work Phone: Comment on above: 1 Occurrences starting 10/17/2022 until 11/16/2023 [facility] Immunizations Immunization Date Immunization Notes Care Provider [facility] 01-12-2022 influenza, high dose seasonal, preservative-free Rosalino Carmona MD Work Phone: [facility] 01-12-2022 influenza virus vacc ine, unspecified formulation Breanna Canseco PA-C Work Phone: [facility] 02-23-2021 COVID-19 vaccine, ag e 12+ yr (PFIZER-BIONTECH - PURPLE TOP) Rosalino Carmona MD Work Phone: [facility] Work Phone: 01-13-2021 influenza, high dose seasonal, preservative-free Rosalino Carmona MD Work Phone: [facility] Work Phone: 07-22-2020 COVID-19 vaccine, ag e 12+ yr (PFIZER-BIONTECH - PURPLE TOP) Rosalino Carmona MD Work Phone: [facility] Work Phone: 06-23-2020 COVID-19 vaccine, ag e 12+ yr (PFIZER-BIONTSolidagex - PURPLE TOP) Rosalino Carmona MD Work Phone: [facility] Work Phone: 12-25-2018 influenza, high dose seasonal, preservative-free Rosalino Carmona MD Work Phone: [facility] 01-13-2018 influenza, high dose seasonal, preservative-free Rosalino Carmona MD Work Phone: [facility] 01-09-2017 influenza, high dose seasonal, preservative-free Rosalino Carmona MD Work Phone: [facility] 01-13-2016 influenza, high dose seasonal, preservative-free Rosalino Carmona MD Work Phone: [facility] 01-05-2015 influenza, high dose seasonal, preservative-free Rosalino Carmona MD Work Phone: [facility] 01-05-2015 pneumococcal conjuga te vaccine, 13 valent Rosalino Carmona MD Work Phone: [facility] 01-11-2014 influenza, high dose seasonal, preservative-free Rosalino Carmona MD Work Phone: [facility] 03-21-2006 pneumococcal polysaccharide vaccine, 23 valent Rosalino Carmona MD Work Phone: [facility] Payers Date Payer Category Payer Self-pay 2022 Medicare supplementa l policy (as second payer) [facility] [id number] 2017 Private Health Insurance [facility] AARP SUPPLEMENT [id number] 2017-Present [phone] [address] [place] [address] Indemnity [id number] 2017 Private Health Insurance [id number] 2002 Medicare MEDICARE MEDICAR E A AND B [id number] 2002-Present [phone] [address] [address] [place] [address] Medicare [id number] 2002 Medicare [id number] 2002 Medicare [id number] 2000 Unknown [id number] 1940 Unknown [id number] 1940 Unknown [id number] Medicare [id number] Unknown [id number] Unknown [id number] Unknown [id number] Unknown [id number] Unknown [id number] Social History Date Type Detail Facility Start: 02-15-2018 End: 12-22-2023 Tobacco smoking status WYIS Ex-smoker [facility] Start: 02-15-2018 End: 04-18-2022 Tobacco use and exposure Smokeless tobacco non-user [facility] Start: 10-14-2021 End: 12-28-2024 Alcohol intake Current non-drinker of alcohol (finding) [facility] Start: 1940 Sex Assigned At Not on file [facility] History of tobacco use Current smoker [facility] Start: 12-08-2021 End: 04-10-2024 Exposure to SARS-CoV-2 (event) Not sure [facility] Start: 10-18-2022 End: 10-29-2022 History of Social function [facility] Work Phone: Start: 10-18-2022 End: 10-29-2022 Tobacco use panel [facility] Work Phone: Start: 03-23-2012 Adult Depression Screening Assessment 0 [facility] Work Phone: (I/We) worried wheth er (my/our) food would run out before (I/we) got money to buy more. Never true [facility] Work Phone: Tobacco smoking stat [facility] Tobacco smoking consumption unknown [facility] Work Phone: Start: 10-18-2022 Alcohol Alcohol [facility] Start: 10-18-2022 Lives Lives [facility] Start: 10-18-2022 Tobacco Use Tobacco Use [facility] Start: 1940 Sex Assigned At Female [facility] Clinical Notes 10-14-2021 to 01-08-2025 Breanna Canseco PA-C - 12/28/2024 8:39 AM Carmelita Rasmussen MA - 12/28/2024 8:14 AM EDTResult Encounter Note - Orquidea Robertson APRN.CNP - 12/22/2024 3:57 PM EDTPatient Instructions Note Date & Type Note Facility 01-08-2025 Progress note [facility] 12-28-2024 Note HNO ID: [id number] Author: BREANNA CANSECO PA-C Service: ? Author Type: Physician Recreational Sports Director Type: Progress Notes Filed: 12/28/2024 08:40 Note [...] these instructions. Informed Consent Consent Obtained: Verbal Mcallen Protocol A moment to CARE was completed. [...] the bedside nurse for hospitalized patients) applicable. [facility] 12-28-2024 History of Present illness [...] these instructions. Informed Consent Consent Obtained: Verbal Mcallen Protocol A moment to CARE was completed. [...] injections bilateral knees. documented in this encounter [facility] 12-28-2024 Note HNO ID: [id number] Author: CARMELITA TRAN MA Service: ? Author Type: Sliver Lap Tender Type: Progress Notes Filed: 12/28/2024 08:40 Note [...] the pain. Here for injections bilateral knees. [facility] 12-22-2024 Progress note Formatting of t his note might be different from the original. Namebrand Synthroid 25 mcg ordered. [facility] 12-22-2024 Miscellaneous Notes Namebrand Synthroid 25 mcg [...] have been ordered. documented in this encounter [facility] 12-22-2024 Telephone encounter Note Patient was made aware of the results. Patient verbalizes understanding. Patient is asking for name brand only synthroid to be sent to the pharmacy. Her niece suggested it and patient is requesting. Michelle Marie Ma [facility] 12-22-2024 Telephone encounter Note ----- Message from [...] 8:26 PM EDT To: Rosalino Carmona MD [facility] 12-22-2024 Progress note Formatting of t his [...] Labs and the thyroid have been ordered. [facility] 12-10-2024 Telephone encounter Note Pt called and is notified of providers results and instructions. Pt voices understanding. Gregoria Anderson RN [facility] 12-10-2024 Miscellaneous Notes Pt called and is notified of providers results and instructions. Pt voices understanding. Gregoria Anderson RN Labs are ok except renal function is slightly low. Thyroids is borderline. Push fluids and recheck labs in two weeks. documented in this encounter [facility] 12-10-2024 Telephone encounter Note Labs are ok except renal function is slightly low. Thyroids is borderline. Push fluids and recheck labs in two weeks. [facility] 12-02-2024 Note HNO ID: [id number] Author: ROSALINO CARMONA MD Service: ? Author [...] send lab re (more content not included)... [facility] 12-02-2024 History of Present illness [...] to patient) Rosalino Carmona MD Recording using DigePrint software for draft documentation of the visit was discussed with the patient/authorized financial services sales representative; all questions welcomed and answered. Patient/authorized financial services sales representative agreed to proceed [1] Social History Tobacco Use Smoking status: Former Smokeless tobacco: Never Vaping Use Vaping status: Never Used Substance Use Topics Alcohol use: No Drug use: No documented in this encounter [facility] 12-02-2024 Instructions Rosalino Carmona MD - 12/02/2024 8:54 AM EDT - Start amoxicillin (mid-range dose) for 7 days for your sinus infection; prescription sent to [facility] in [place]. - Refill your amlodipine, hydralazine, and metoprolol [...] contact the office. documented in this encounter [facility] 09-21-2024 Note HNO ID: [id number] Author: BREANNA CANSECO PA-C Service: ? Author Type: Physician Recreational Sports Director Type: Progress Notes Filed: 09/21/2024 09:10 Note [...] these instructions. Informed Consent Consent Obtained: Verbal Mcallen Protocol A moment to CARE was completed. [...] the bedside nurse for hospitalized patients) applicable. [facility] 09-21-2024 History of Present illness [...] these instructions. Informed Consent Consent Obtained: Verbal Mcallen Protocol A moment to CARE was completed. [...] for injections today. documented in this encounter [facility] 09-21-2024 Note HNO ID: [id number] Author: CARMELITA TRAN MA Service: ? Author Type: Sliver Lap Tender Type: Progress Notes Filed: 09/21/2024 09:10 Note [...] for the pain. Here for injections today. [facility] 06-08-2024 Note HNO ID: [id number] Author: BREANNA CANSECO PA-C Service: ? Author Type: Physician Recreational Sports Director Type: Progress Notes Filed: 06/08/2024 08:32 Note Text: Large Joint Arthro/Inj: bilateral knee joints Informed Consent Consent Obtained: Verbal Mcallen Protocol A moment to CARE was completed. [...] Plan of Care Visit completed when applicable [facility] 06-08-2024 History of Present illness Narrative Associated Order(s): Large Joint Arthro/Inj: bilateral knee joints Post-Procedure Diagnose(s): Primary osteoarthritis of both knees Large Joint Arthro/Inj: bilateral knee joints Informed Consent Consent Obtained: Verbal Mcallen Protocol A moment to CARE was completed. [...] injections bilateral knees documented in this encounter [facility] 06-08-2024 Note HNO ID: [id number] Author: CARMELITA TRAN MA Service: ? Author Type: Sliver Lap Tender Type: Progress Notes Filed: 06/08/2024 08:32 Note Text: Patient presents with: Right Knee - Follow Up, Injections Left Knee - Follow Up, Injections: 14 weeks post visit OA bilateral knees with injections given Wants injections AMB ROOMING INTAKE FLOWSHEET DATA Patient denies any pain today. Here for cortisone injections bilateral knees [facility] 05-26-2024 Instructions Orquidea Robertson APRN.CNP - 05/26/2024 8:28 AM EST - AMOXICILLIN 875 MG-POTASSIUM CLAVULANATE 125 MG TABLET - Saline nasal spray frequently while on antibiotic - follow up in 6 months documented in this encounter [facility] 05-26-2024 Note HNO ID: [id number] Author: ORQUIDEA ROBERTSON APRN.CNP Service: ? Author [...] scheduled or as needed for worsening/no improvement. Orquieda Robertson APRN.[facility] 05-26-2024 History of Present illness Narrative [...] as needed for worsening/no improvement. Orquidea Robertson APRN.CARPET INSPECTOR documented in this encounter [facility] 05-05-2024 Telephone encounter Note Patient informed and verbalized understanding. Cindy Aguiar MA [facility] 05-05-2024 Miscellaneous Notes Patient informed and verbalized understanding. Cindy Aguiar MA Avoid dairy. May not be med related. If continues, needs seen Pt called in and reports she started 2 new heart medications in February Amlodipine and Hydralazine, and she increased her Metoprolol. She said the Tallier discontinued her Diltiazem. She though maybe these medication had given her diarrhea, but her Tallier didn't think so and told her to [...] he would recommend. documented in this encounter [facility] 05-05-2024 Telephone encounter Note Avoid dairy. May not be med related. If continues, needs seen [facility] 05-05-2024 Telephone encounter Note Pt called in and reports she started 2 new heart medications in February Amlodipine and Hydralazine, and she increased her Metoprolol. She said the Tallier discontinued her Diltiazem. She though maybe these medication had given her diarrhea, but her Tallier didn't think so and told her to [...] there is something else he would recommend. [facility] 04-29-2024 Telephone encounter Note Pt called and is notified of providers message and instructions. Pt voices understanding. I talked with her and she is going to try the medication and will let provider know how it is going when she comes in for her appointment. Gregoria Anderson RN [facility] 04-29-2024 Miscellaneous Notes Pt called and is [...] Please advise pt. documented in this encounter [facility] 04-28-2024 Telephone encounter Note That is not a significant side effect. The most common side effect of any medicine is none. That is just listed because someone during the med trials not suprisingly had nose bleeds. That is the danger of reading side effect profiles without having pharmacological background to understand what they mean. [facility] 04-28-2024 Telephone encounter Note Pt reports she [...] to take the sertraline. Please advise pt. [facility] 04-28-2024 History of Present illness Narrative Patient [...] Rosalino Carmona MD documented in this encounter [facility] 04-28-2024 Note HNO ID: [id number] Author: ROSALINO CARMONA MD Service: ? Author [...] Z13.31 - DEPRESSION SCREENING Rosalino Carmona MD [facility] 04-10-2024 Telephone encounter Note mammogram [facility] 04-10-2024 Miscellaneous Notes mammogram See mammo results: Scan on 04/10/2024 9:25 AM by Provider, ELY Armendariz: Mammography documented in this encounter [facility] 04-10-2024 Telephone encounter Note See mammo results: Scan on 04/10/2024 9:25 AM by Provider, ELY Armendariz: Mammography [facility] 03-26-2024 Telephone encounter Note Order faxed to as requested. Sent via [employer]. Patient notified. [facility] 03-26-2024 Miscellaneous Notes Order faxed to as requested. Sent via [employer]. Patient notified. Patient calling she received her reminder to get mamm order. She does at [facility] in [place]. Last year was done on 04/09/2023. She wants a 3 D mamm faxed to [phone]. Pending order. Please advise documented in this encounter [facility] 03-25-2024 Telephone encounter Note Patient calling she received her reminder to get mamm order. She does at [facility] in [place]. Last year was done on 04/09/2023. She wants a 3 D mamm faxed to [phone]. Pending order. Please advise [facility] 03-02-2024 Note HNO ID: [id number] Author: BREANNA CANSECO PA-C Service: ? Author Type: Physician Recreational Sports Director Type: Progress Notes Filed: 03/02/2024 09:26 Note Text: Large Joint Arthro/Inj: bilateral knee joints Informed Consent Consent Obtained: Verbal Mcallen Protocol A moment to CARE was completed. [...] Plan of Care Visit completed when applicable [facility] 03-02-2024 History of Present illness Narrative Associated Order(s): Large Joint Arthro/Inj: bilateral knee joints Post-Procedure Diagnose(s): Primary osteoarthritis of both knees Large Joint Arthro/Inj: bilateral knee joints Informed Consent Consent Obtained: Verbal Mcallen Protocol A moment to CARE was completed. [...] Days Frequency: Continuous documented in this encounter [facility] 03-02-2024 Note HNO ID: [id number] Author: BERNADINE HOOK LPN Service: ? Author Type: LICENSED NURSE Type: Progress Notes Filed: 03/02/2024 09:26 Note Text: AMB ROOMING INTAKE FLOWSHEET DATA Pain Pain Level: 2 Pain Location: Knee-Right Description: Sore Duration Amount of Time: 1 Duration Units: Days Frequency: Continuous [facility] 01-27-2024 Telephone encounter Note Letter mailed to pt home of results. Maria Dolores Lerma MA [facility] 01-27-2024 Miscellaneous Notes Letter mailed to pt home of results. Maria Dolores Lerma MA ----- Message from Orquidea Robertson sent at 01/27/2024 8:52 AM EDT ----- Labs were okay except that her white blood count was high. We are treating her for bronchitis. This was an expected finding. All other labs were okay. documented in this encounter [facility] 01-27-2024 Telephone encounter Note ----- Message from Orquidea Robertson sent at 01/27/2024 8:52 AM EDT ----- Labs were okay except that her white blood count was high. We are treating her for bronchitis. This was an expected finding. All other labs were okay. [facility] 01-24-2024 Instructions Orquidea Robertson APRN.ALEXX - 01/24/2024 8:25 AM EDT 1) Check labs 2) Doxycycline 100 mg 2 x day 3) Follow up in 3 months documented in this encounter [facility] 01-24-2024 History of Present illness Narrative This [...] as needed for worsening/no improvement. Orquidea Robertson APRN.CARPET INSPECTOR documented in this encounter [facility] 01-14-2024 History of Present illness Narrative Transitional Care Management (TCM) Follow-Up Note PCP Update / Actionable Items Future Apts 01/23 Famp Wstr 03/02 ORTHO WSTR N/A - No specialty updates needed Patient Source: [id number] (OON) Discharge Outreach Summary: Patient states is [...] , no issues, stabl Patient discharged from [facility] Discharge date: 12/23/23 Admitted for: Epistaxi Readmission [...] 2024 2:29 PM documented in this encounter [facility] 01-09-2024 Telephone encounter Note Patient notified of provider message and is agreeable to call Dr Lolita Marie MA January 09, 2024 2:57 PM [facility] 01-09-2024 Miscellaneous Notes Patient notified of provider [...] now. Please advise documented in this encounter [facility] 01-09-2024 Telephone encounter Note She follows with Dr. Dunlap. I would prefer that they weigh in on this. [facility] 01-09-2024 Telephone encounter Note Patient calling a week ago Dr Aniya GUEVARA cauterized the bleeding her nose and she had follow up with him today. He said Ok but to check with PCP about restarting the Eliquis. She has been off of the Eliquis for 2 weeks now. Please advise [facility] 01-07-2024 History of Present illness Narrative Transitional Care Management (TCM) Follow-Up Note PCP Update / Actionable Items Day 15 Future Apts 01/23 Famp Wstr 03/02 ORTHO WSTR N/A - No specialty updates needed Patient Source: Ich-[id number]-Ylpvbeo (OON) Discharge Outreach Summary: Patient states is [...] , no issues, stabl Patient discharged from [facility] Discharge date: 12/23/23 Admitted for: Epistaxi Readmission [...] 2024 6:34 PM documented in this encounter [facility] 12-31-2023 History of Present illness Narrative Transitional Care Management (TCM) Follow-Up Note PCP Update / Actionable Items Day 18 Future Apts 01/23 Famp Wstr 03/02 ORTHO WSTR N/A - No specialty updates needed Patient Source: Ggq-gr-Vooujcg (OON) Discharge Outreach Summary: Patient states is [...] , no issues, stabl Patient discharged from [facility] Discharge date: 12/23/23 Admitted for: Epistaxi Readmission [...] 2023 3:39 PM documented in this encounter [facility] 12-30-2023 Telephone encounter Note Tricia Granados (Ledezma: [id number]) SAMANTHA Rx #: [id number] Need Help? Call us at Outcome Approved [...] Request Form (2016 NCPDP) Original Claim Info [id number] IF LEVEL OF CARE CHANGE CALL HELP DESK Pharmacy notified. [facility] 12-30-2023 Miscellaneous Notes Tricia Granados (Ledezma: [id number]) SAMANTHA Rx #: [id number] Need Help? Call us at Outcome Approved on December 26 by [employer] 2017 Approved. This drug has been approved under the [facility] Medicare Part D benefit. Approved quantity: [...] Request Form (2016 NCPDP) Original Claim Info [id number] IF LEVEL OF CARE CHANGE CALL HELP DESK Pharmacy notified. Prior Authorization has been completed online at [employer] for hydroxazine, will await response. LEDEZMA- BNCYDKFG Please keep encounter open until final decision has been received and documented from insurance company. Lynette Weinstein MA documented in this encounter [facility] 12-27-2023 Telephone encounter Note Prior Authorization has been completed online at [employer] for hydroxazine, will await response. LEDEZMA- BNCYDKFG Please keep encounter open until final decision has been received and documented from insurance company. Lynette Weinstein MA [facility] 12-27-2023 Instructions Orquidea Robertson APRN.ALEXX - 12/27/2023 [...] need for anxiety documented in this encounter [facility] 12-27-2023 History of Present illness Narrative This is a 83 year old female who presents today with: Patient presents with: Hospital F/U: [facility] Follow up HISTORY OF PRESENT ILLNESS: Tricia Granados is a 83 year old female. Patient presents with: Hospital F/U: [facility] Follow up Admitted for severe nose [...] Orquideaishmael Robertson APRN.CNP documented in this encounter [facility] 12-26-2023 History of Present illness Narrative Breanna Canseco PA-C Department of Orthopaedics Orthopaedics [address] [address] Dept: [phone] December 26, 2023 CHIEF COMPLAINT: Knee Pain [...] the knees. Mild degenerative change, as described. Book Jacket Cover Machine Operator: SKYLER Transcribe Date/Time: Dec 26 2023 1:07P [...] anxiety) This note was partially generated using [employer] voice recognition system, and there may be some incorrect words, spellings, and punctuation that were not noted in checking the note before saving. Breanna Canseco PA-C documented in this encounter [facility] 12-25-2023 Telephone encounter Note Spoke with patient - she will see Breanna tomorrow at 8:30 and will get an xray prior just to ensure nothing in broken. Pt verbalized understanding. [facility] 12-25-2023 Miscellaneous Notes Spoke with patient - she will see Breanna tomorrow at 8:30 and will get an xray prior just to ensure nothing in broken. Pt verbalized understanding. Patient calling and states over the weekend she slipped at home and landed on her knees and she has been unable to bear weight on her right knee. She was just discharged from [facility] for epistaxis and she has been [...] Alia Rojas LPN documented in this encounter [facility] 12-25-2023 Telephone encounter Note Patient calling and states over the weekend she slipped at home and landed on her knees and she has been unable to bear weight on her right knee. She was just discharged from [facility] for epistaxis and she has been [...] is indicated? Please advise. Alia Rojas LPN [facility] 12-24-2023 History of Present illness Narrative Requesting [...] Readmission Risk Score: n/a Patient's zip code: [address] Is zip code within program service area: No Patient meets program referral criteria: No Patient does not qualify for High Risk TCM Home Visit program due to: Readmission Risk Score does not meet criteria Disposition: Patient does not qualify for HRTIC, will provide TCM outreach follow-up for 30-days Patient Source: [id number] (OON) Discharge Outreach Summary: Patient states is feeling same Patient states that she has a lot of anxiety was on Xanax wants a refill will route to PCP, send to [facility] [address] Left nares packing, [...] , no issues, stable Patient discharged from [facility] Discharge date: 12/23/23 Admitted for: Epistaxi Readmission Risk: n/a Value-Based Contract: ACO Contact: Contact made with patient: Yes Hi, my name is Cherelle Rush RN and I am calling from the [facility] on behalf of your Primary Care Provider, [...] like to speak with a social work customer care team coach to help give you support for any [...] I will send your request to a tourist agent who will contact and assist you with [...] 2023 1:31 PM documented in this encounter [facility] 12-20-2023 Telephone encounter Note Rescheduled. [facility] 12-20-2023 Miscellaneous Notes Rescheduled. She should follow up with one of us before the five days is up. Patient calls and states that she was seen in [facility] ER for a nosebleed this morning. Patient states that [facility] ER had called Dr. Mcnulty's office and the doctor secondary english teacher had told patient to hold the Eliquis x [address] Carmona advise on what to do with Eliquis after 5 days. Patient calling and asking for Dr. Carmona's advise on this. Patient is scheduled for ER follow up with Dr. Carmona on Tuesday 12/26. Shanna Parkinson RN documented in this encounter [facility] 12-20-2023 Telephone encounter Note She should follow up with one of us before the five days is up. [facility] 12-20-2023 Telephone encounter Note Patient calls and states that she was seen in [facility] ER for a nosebleed this morning. Patient states that [facility] ER had called Dr. Mcnulty's office and the doctor secondary english teacher had told patient to hold the Eliquis x [address] Carmona advise on what to do with Eliquis after 5 days. Patient calling and asking for Dr. Carmona's advise on this. Patient is scheduled for ER follow up with Dr. Carmona on Tuesday 12/26. Shanna Parkinson RN [facility] 11-25-2023 History of Present illness Narrative Associated Order(s): Large Joint Arthro/Inj: bilateral knee joints Post-Procedure Diagnose(s): Primary osteoarthritis of both knees; Chronic pain of both knees Breanna Canseco PA-C Department of Orthopaedics Orthopaedics [address] [facility] [address] Dept: [phone] Dept November 25, 2023 CHIEF COMPLAINT: Follow [...] knee joints Informed Consent Consent Obtained: Verbal Mcallen Protocol A moment to CARE was completed. [...] Caffeine This note was partially generated using [employer] voice recognition system, and there may be [...] to discuss options. documented in this encounter [facility] 11-25-2023 History of Present illness Narrative Radiology [...] PATIENT PRESENTS WITH AN IMPLANTABLE OR ATTACHED TAX MANAGER PUBLIC: No RADIOLOGY DEPARTMENT: General X-ray: Exam(s) Completed: Lower Extremity X-Ray(s): Knee, AP / Lat / Tunne / Merchant Bilateral and Wt. Bearing PERIPHERAL IV DATA: Not applicable SIGNED BY: RT Agapito(R) November 25, 2023 9:52 AM documented in this encounter [facility] 08-19-2023 History of Present illness Narrative Associated Order(s): Large Joint Arthro/Inj: bilateral knee joints Post-Procedure Diagnose(s): Primary osteoarthritis of both knees; Chronic pain of both knees Large Joint Arthro/Inj: bilateral knee joints Informed Consent Consent Obtained: Verbal Mcallen Protocol A moment to CARE was completed. [...] Sabiha Chew MA documented in this encounter [facility] 02-25-2023 Miscellaneous Notes Order faxed to [phone]. Randall Purcell Order placed. Please fax as requested. Please remind patient that is should not be done until at least 04/04/23. Keturah Velasco APRN.CARPET INSPECTOR Care everywhere shows it was completed 04/03/22 Patient is calling requesting order for Mammography to be placed and faxed to in [place]. Patient states she did complete in 2021 but do not see these reports in [facility]. documented in this encounter [facility] 02-04-2023 History of Present illness Narrative Associated Order(s): Large Joint Arthro/Inj: bilateral knee joints Post-Procedure Diagnose(s): Primary osteoarthritis of both knees Large Joint Arthro/Inj: bilateral knee joints Informed Consent Consent Obtained: Verbal Mcallen Protocol A moment to CARE was completed. [...] for the pain. documented in this encounter [facility] 10-29-2022 History of Present illness Narrative Associated Order(s): Large Joint Arthro/Inj: bilateral knee joints Post-Procedure Diagnose(s): Primary osteoarthritis of both knees Large Joint Arthro/Inj: bilateral knee joints Informed Consent Consent Obtained: Verbal Mcallen Protocol A moment to CARE was completed. [...] X-rays done today. documented in this encounter [facility] 10-18-2022 History of Present illness Narrative Patient [...] her knees. Feels much better. Still seeing [facility] for her heart. No bleeding or [...] months and prn. documented in this encounter [facility] 10-15-2022 Miscellaneous Notes Call to pt and notified her of Providers response below, verbalized understanding. Izzy Sullivan Ma ----- Message from Britney Ramos PA-C sent at 10/14/2022 12:28 PM EDT ----- Please let her know labs are stable/ good range. Thanks, Ed Ramos PA-C documented in this encounter [facility] 07-16-2022 History of Present illness Narrative Associated Order(s): Large Joint Arthro/Inj: bilateral knee joints Post-Procedure Diagnose(s): Primary osteoarthritis of both knees; Chronic pain of both knees Breanna Canseco PA-C Department of Orthopaedics [facility] [address] [facility] [address] Dept: [phone] Dept July 16, 2022 CHIEF COMPLAINT: Established [...] knee joints Informed Consent Consent Obtained: Verbal Mcallen Protocol A moment to CARE was completed. [...] Caffeine This note was partially generated using [employer] voice recognition system, and there may be [...] injection again today. documented in this encounter [facility] 04-19-2022 Miscellaneous Notes Pt called and is [...] signs of infection. documented in this encounter [facility] 04-18-2022 Miscellaneous Notes Addended by: ROSALINO CARMONA on: 04/18/2022 11:28 AM Modules accepted: Orders Addended by: LYNETTE WEINSTEIN MA on: 04/18/2022 11:21 AM Modules accepted: Orders documented in this encounter [facility] 04-18-2022 Instructions Rosalino Carmona MD - 04/18/2022 10:39 AM EST Mucinex or coricidin hbp for congestion. documented in this encounter [facility] 04-18-2022 History of Present illness Narrative Patient [...] plan. Rosalino Carmona documented in this encounter [facility] 03-12-2022 Miscellaneous Notes Faxed and patient informed. Cindy Aguiar done Patient is calling requesting PCP place joel screening mammography order and fax to in [place]. documented in this encounter [facility] 03-12-2022 History of Present illness Narrative Associated Order(s): Large Joint Arthro/Inj: bilateral knee joints Post-Procedure Diagnose(s): Primary osteoarthritis of both knees; Chronic pain of both knees Large Joint Arthro/Inj: bilateral knee joints Informed Consent Consent Obtained: Verbal Mcallen Protocol A moment to CARE was completed. [...] both knees today. documented in this encounter [facility] 12-18-2021 History of Present illness Narrative Associated Order(s): Large Joint Arthro/Inj: bilateral knee joints Post-Procedure Diagnose(s): Chronic pain of both knees; Primary osteoarthritis of both knees Breanna Canseco PA-C Department of Orthopaedics Orthopaedics [address] [place] [address] Dept: [phone] Dept December 18, 2021 CHIEF COMPLAINT: New [...] knee joints Informed Consent Consent Obtained: Verbal Mcallen Protocol A moment to CARE was completed. [...] Stable degenerative changes as detailed in report. Book Jacket Cover Machine Operator: SKYLER Transcribe Date/Time: Oct 15 2021 9:25A [...] anxiety) This note was partially generated using [employer] voice recognition system, and there may be some incorrect words, spellings, and punctuation that were not noted in checking the note before saving. Breanna Canseco PA-C Patient presents with: Left Knee - New, Knee Pain Right Knee - New, Knee Pain: Bilateral knee pain- Ref Dr. Shaggy fonseca 10/14/21 [facility] ROOMING INTAKE FLOWSHEET DATA Risk Screening Do [...] knees during movement. documented in this encounter [facility] 12-18-2021 History of Present illness Narrative Radiology [...] 2021 10:20 AM documented in this encounter [facility] 10-14-2021 History of Present illness Narrative Radiology [...] 2021 8:51 AM documented in this encounter [facility] 10-14-2021 History of Present illness Narrative Patient presents with: 6 Month Exam HPI: Patient presents today for office visit for follow up. HYPERTENSION:no chest pain. Denies palpitations Denies shortness of breath. CARDIO:follows with [facility](Dr. Mchugh) Denies dizziness. PSYCH:oarrs done. Has not filled xanax in some time. Is anxious. Her brother is passing away. He is in [place]. Feels she is doing ok. ANTICOAG:no bleeding [...] Abs Lymph 1.00 - 4.00 k/uL 2.57 [place]% % 8.2 Abs [place] <0.87 k/uL 0.71 Eosin% % 3.0 Abs [...] months and prn. documented in this encounter [facility] Evaluation note Diagnosis Paroxysmal atrial fibrillation (HCC)- Primary Atrial fibrillation Primary hypertension Unspecified essential hypertension Stage 3a chronic kidney disease (HCC) Chronic anticoagulation Long-term (current) use of anticoagulants Anxiety Anxiety state, unspecified Chronic pain of both knees [facility] Diagnosis Primary osteoarthritis of both knees- Primary Primary localized osteoarthrosis, lower leg Chronic pain of both knees [facility] Diagnosis Chronic pain of both knees documented in this encounter [facility] note* Diagnosis Chronic pain of both knees- Primary Primary osteoarthritis of both knees Primary localized osteoarthrosis, lower leg [facility] Diagnosis Encounter for screening mammogram for malignant neoplasm of breast- Primary Other screening mammogram [facility] Diagnosis Paroxysmal atrial fibrillation (HCC)- Primary Atrial fibrillation LBBB (left bundle branch block) Other left bundle branch block Primary hypertension Unspecified essential hypertension Stage 3a chronic kidney disease (HCC) Chronic anticoagulation Long-term (current) use of anticoagulants Anxiety Anxiety state, unspecified Bacterial sinusitis Unspecified sinusitis (chronic) [facility] Diagnosis Leukocytosis, unspecified type- Primary [facility] Diagnosis Chronic pain of both knees- Primary Primary osteoarthritis of both knees Primary localized osteoarthrosis, lower leg [facility] Diagnosis Pain in both knees, unspecified chronicity- Primary [facility] Diagnosis Paroxysmal atrial fibrillation (HCC)- Primary Atrial fibrillation Primary hypertension Unspecified essential hypertension Stage 3a chronic kidney disease (HCC) Chronic anticoagulation Long-term (current) use of anticoagulants Anxiety Anxiety state, unspecified [facility] Diagnosis Primary osteoarthritis of both knees- Primary Primary localized osteoarthrosis, lower leg [facility] Diagnosis Encounter for screening mammogram for malignant neoplasm of breast- Primary Other screening mammogram [facility] Diagnosis Primary osteoarthritis of both knees- Primary Primary localized osteoarthrosis, lower leg Chronic pain of both knees [facility] Diagnosis Primary osteoarthritis of both knees- Primary Primary localized osteoarthrosis, lower leg Chronic pain of both knees [facility] Diagnosis Primary osteoarthritis of both knees Primary localized osteoarthrosis, lower leg Chronic pain of both knees [facility] Diagnosis Acute pain of both knees- Primary [facility] Diagnosis Primary osteoarthritis of both knees- Primary Primary localized osteoarthrosis, lower leg Chronic pain of both knees Fall, initial encounter [facility] Diagnosis Acute pain of both knees [facility]* Diagnosis Primary hypertension- Primary Unspecified essential hypertension Paroxysmal atrial fibrillation (HCC) Atrial fibrillation Chronic anticoagulation Long-term (current) use of anticoagulants Anxiety Anxiety state, unspecified Stage 3a chronic kidney disease (HCC) Pain in both knees, unspecified chronicity Epistaxis [facility] Diagnosis Chronic pain of both knees [facility]* Diagnosis Anxiety- Primary Anxiety state, unspecified Acute bronchitis, unspecified organism Primary hypertension Unspecified essential hypertension Chronic fatigue Other malaise and fatigue Stage 3a chronic kidney disease (HCC) Chronic anticoagulation Long-term (current) use of anticoagulants Screening for lipid disorders Paroxysmal atrial fibrillation (HCC) Atrial fibrillation Disorder of iron metabolism, unspecified documented in this encounter [facility] note* Diagnosis Primary osteoarthritis of both knees- Primary Primary localized osteoarthrosis, lower leg [facility]* Diagnosis Screening mammogram for breast cancer- Primary [facility]* Diagnosis Encounter for screening mammogram for malignant neoplasm of breast documented in this encounter [facility] Work Phone: Evaluation note* Diagnosis Paroxysmal atrial fibrillation (HCC)- Primary Atrial fibrillation Primary hypertension Unspecified essential hypertension Stage 3a chronic kidney disease (HCC) Chronic anticoagulation Long-term (current) use of anticoagulants Anxiety Anxiety state, unspecified Screening for depression documented [facility] this encounter [facility]* Diagnosis Acute recurrent maxillary sinusitis- Primary Acute maxillary sinusitis Anxiety Anxiety state, unspecified Primary hypertension Unspecified essential hypertension [facility] Diagnosis Primary osteoarthritis of both knees- Primary Primary localized osteoarthrosis, lower leg [facility]* Diagnosis Primary hypertension- Primary Unspecified essential hypertension Paroxysmal atrial fibrillation (HCC) Atrial fibrillation Chronic anticoagulation Long-term (current) use of anticoagulants Anxiety Anxiety state, unspecified Bacterial sinusitis Unspecified sinusitis (chronic) Fatigue, unspecified type documented [facility] this [facility]* Diagnosis Renal insufficiency- Primary Unspecified disorder of kidney and ureter Hypothyroidism, acquired Unspecified hypothyroidism [facility] Diagnosis Hyponatremia- Primary Hyposmolality and/or hyponatremia Hypothyroidism, acquired Unspecified hypothyroidism [facility] Diagnosis Primary osteoarthritis of both knees- Primary Primary localized osteoarthrosis, lower leg [facility] Diagnosis Onset Date Resolution Status Admit Date Essential (primary) hypertension chronic January 08, 2025 10:02am Longstanding persistent atrial fibrillation chronic January 082024 10:02am [facility] Work Phone: Progress note Author Demetrice Greer [facility] Note Date/Time January 08, 2025 10:49am [facility] 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 Required: No Is patient in pain?: No [...] Follow Up: 01/08/25 (Keep as is with PREDATORY ANIMAL HUNTER) Coding Level of Care Code Off vis,est,level [...] Cosigner Signature: Date (if applicable) CC: ~ [place] [employer] Work Phone: [facility] for referral (narrative)* Diagnostic Procedure Only (Routine) - Closed Specialty Diagnoses / Procedures Referred By Gissell russell Referred To Contact XR IMAGING Diagnoses Chronic pain of both knees Procedures XR LUMBAR GENERAL 3V AP/LAT/L5-S1 RADEX SPINE LUMBOSACRAL 2/3 VIEWS Breanna Canseco PA-C [address] [place] [address] Xr Imaging Referral ID Status Reason Start Date Expiration Date V isits Requested Visits Authorized [id number] Closed Auto-Generate d Referral 12/18/2021 01/17/2023 1 1 T [facility] for referral (narrative)* Diagnostic Procedure Only (Routine) - Closed Specialty Diagnoses / Procedures Referred By Gissell russell Referred To Contact XR IMAGING Diagnoses Chronic pain of both knees Procedures XR LUMBAR GENERAL 3V AP/LAT/L5-S1 RADEX SPINE LUMBOSACRAL 2/3 VIEWS Breanna Canseco PA-C [address] [place] [address] Xr Imaging Referral ID Status Reason Start Date Expiration Date V isits Requested Visits Authorized [id number] Closed Auto-Generate d Referral 12/18/2021 01/17/2023 1 1 [facility] for referral (narrative)* Diagnostic Procedure Only (Routine) - Pending Review Specialty Diagnoses / Procedures Referred By Gissell russell Referred To Contact BR IMAGING Diagnoses Encounter for screening mammogram for malignant neoplasm of breast Procedures [facility] SCREENING W JOEL SCREENING DIGITAL BREAST TOMOSYNTHESIS BI SCREENING MAMMOGRAPHY BI 2-VIEW BREAST INC CAD Kristine, Rosalino Calloway MD [address] [place] [address] [facility] [address] [place] [address] Referral ID Status Reason Start Date Expiration Date Visits Requested Visits Authorized [id number] Pending Review Auto-Generat ed Referral 2 04/11/2023 1 1 [facility] for referral (narrative)* Diagnostic Procedure Only (Routine) - Pending Review Specialty Diagnoses / Procedures Referred By Gissell russell Referred To Contact XR IMAGING Diagnoses Pain in both knees, unspecified chronicity Procedures XR KNEE GENERAL 4V AP BOTH/PA BOTH/LAT/MERC BILATERAL RADIOLOGIC EXAM KNEE COMPLETE 4/MORE VIEWS Breanna Canseco PA-C [address] [place] [address] Xr Imaging Referral ID Status Reason Start Date Expiration Date Visits Requested Visits Authorized [id number] Pending Review Auto-Generat ed Referral 10/17/2022 11/16/2023 1 1 [facility] for referral (narrative)* Diagnostic Procedure Only (Routine) - Pending Review Specialty Diagnoses / Procedures Referred By Contac t Referred To Contact BR IMAGING Diagnoses Encounter for screening mammogram for malignant neoplasm of breast Procedures [facility] SCREENING W JOEL SCREENING DIGITAL BREAST TOMOSYNTHESIS BI SCREENING MAMMOGRAPHY BI 2-VIEW BREAST INC CAD Rosalino Carmona MD [address] [place] [address] [facility] [address] [place] [address] Referral ID Status Reason Start Date Expiration Date Visits Requested Visits Authorized [id number] Pending Review Auto-Generat ed Referral 02/25/2023 03/26/2024 1 1 [facility] for referral (narrative)* Diagnostic Procedure Only (Routine) - Closed Specialty Diagnoses / Procedures Referred By Gissell russell Referred To Contact XR IMAGING Diagnoses Primary osteoarthritis of both knees Chronic pain of both knees Procedures XR KNEE GENERAL 4V AP BOTH/PA BOTH/LAT/MERC BILATERAL RADIOLOGIC EXAM KNEE COMPLETE 4/MORE VIEWS Breanna Canseco PA-C [address] [place] [address] [place] [id number] Referral ID Status Reason Start Date Expiration Date V isits Requested Visits Authorized [id number] Closed Auto-Generate d Referral 11/25/2023 12/24/2024 1 1 [facility] for referral (narrative)* Diagnostic Procedure Only (Routine) - New Request Specialty Diagnoses / Procedures Referred By Gissell russell Referred To Contact XR IMAGING Diagnoses Acute pain of both knees Procedures XR KNEE GENERAL 4V AP BOTH/PA BOTH/LAT/MERC BILATERAL RADIOLOGIC EXAM KNEE COMPLETE 4/MORE VIEWS Breanna Canseco PA-C [address] [place] [address] [place] [address] Referral ID Status Reason Start Date Expiration Date Visits Requested Visits Authorized [id number] New Request Auto-Generat ed Referral 12/25/2023 01/23/2025 1 1 [facility] for referral (narrative)* Diagnostic Procedure Only (Routine) - Closed Specialty Diagnoses / Procedures Referred By Gissell russell Referred To Contact XR IMAGING Diagnoses Acute pain of both knees Procedures XR KNEE GENERAL 4V AP BOTH/PA BOTH/LAT/MERC BILATERAL RADIOLOGIC EXAM KNEE COMPLETE 4/MORE VIEWS Breanna Canseco PA-C [facility] [place] [address] [place] [address] Referral ID Status Reason Start Date Expiration Date V isits Requested Visits Authorized [id number] Closed Auto-Generate d Referral 12/25/2023 01/23/2025 1 1 [facility] for referral (narrative)* Diagnostic Procedure Only (Routine) - Closed Specialty Diagnoses / Procedures Referred By Gissell russell Referred To Contact XR IMAGING Diagnoses Chronic pain of both knees Procedures XR KNEE GENERAL 4V AP BOTH/PA BOTH/LAT/MERC BILATERAL RADIOLOGIC EXAM KNEE COMPLETE 4/MORE VIEWS Rosalino Carmona MD [facility] [place] [address] Xr Imaging [id number] Referral ID Status Reason Start Date Expiration Date V isits Requested Visits Authorized [id number] Closed Auto-Generate d Referral 10/14/2021 11/13/2022 1 1 [facility] for referral (narrative)* Diagnostic Procedure Only (Routine) - New Request Specialty Diagnoses / Procedures Referred By Gissell russell Referred To Contact BR IMAGING Diagnoses Screening mammogram for breast cancer Procedures MC SCREENING W JOEL SCREENING DIGITAL BREAST TOMOSYNTHESIS BI SCREENING MAMMOGRAPHY BI 2-[place] [address] [place] [id number] [facility] [address] [place] [address] Referral ID Status Reason Start Date Expiration Date Visits Requested Visits Authorized [id number] New Request Auto-Generat ed Referral 03/25/2024 04/24/2025 1 1 [facility] for referral (narrative)No reason for referral information availableSaint [facility] Work Phone: [facility] Narrative* Diagnostic Procedure Only (Routine) - Closed Specialty Diagnoses / Procedures Referred By Contac t Referred To Contact XR IMAGING Diagnoses Chronic pain of both knees Procedures XR LUMBAR GENERAL 3V AP/LAT/L5-S1 RADEX SPINE LUMBOSACRAL 2/3 VIEWS Vetovitz, Breanna, PA-C [address] [place] [address] Xr Imaging Referral ID Status Reason Start Date Expiration Date V isits Requested Visits Authorized [id number] Closed Auto-Generate d Referral 12/18/2021 01/17/2023 1 1 [facility] for visit Narrative* Diagnostic Procedure Only (Routine) - Closed Specialty Diagnoses / Procedures Referred By Contac t Referred To Contact XR IMAGING Diagnoses Primary osteoarthritis of both knees Chronic pain of both knees Procedures XR KNEE GENERAL 4V AP BOTH/PA BOTH/LAT/MERC BILATERAL RADIOLOGIC EXAM KNEE COMPLETE 4/MORE VIEWS Vetovilawanda, Breanna, PA-C [address] [place] [address] [place] [address] Referral ID Status Reason Start Date Expiration Date V isits Requested Visits Authorized [id number] Closed Auto-Generate d Referral 11/25/2023 12/24/2024 1 1 [facility] for visit Narrative* Diagnostic Procedure Only (Routine) - Closed Specialty Diagnoses / Procedures Referred By Contac t Referred To Contact XR IMAGING Diagnoses Acute pain of both knees Procedures XR KNEE GENERAL 4V AP BOTH/PA BOTH/LAT/MERC BILATERAL RADIOLOGIC EXAM KNEE COMPLETE 4/MORE VIEWS Vetovitz, Breanna, PA-C [address] [place] [address] [place] [address] Referral ID Status Reason Start Date Expiration Date V isits Requested Visits Authorized [id number] Closed Auto-Generate d Referral 12/25/2023 01/23/2025 1 1 [facility] for visit Narrative* Diagnostic Procedure Only (Routine) - Closed Specialty Diagnoses / Procedures Referred By Contac t Referred To Contact XR IMAGING Diagnoses Chronic pain of both knees Procedures XR KNEE GENERAL 4V AP BOTH/PA BOTH/LAT/MERC BILATERAL RADIOLOGIC EXAM KNEE COMPLETE 4/MORE VIEWS Rosalino Carmona MD [address] [place] [address] [place] [address] Referral ID Status Reason Start Date Expiration Date V isits Requested Visits Authorized [id number] Closed Auto-Generate d Referral 10/14/2021 11/13/2022 1 1 [facility] for visit Narrative* Imaging (Routine) - Authorized Specialty Diagnoses / Procedures Referred By Gissell t Referred To Contact Radiology Diagnoses Encounter for screening mammogram for malignant neoplasm of breast Procedures BI mammo bilateral screening tomosynthesis Rosalino Carmona MD [address] [place] [address] Phone: tel: fax: Referral ID Status Reason Start Date Expiration Date Visits Requested Visits Authorized [id number] Authorized Perform Procedure 03/27/2024 03/27/2025 1 1 [facility] Work Phone: Summary Purpose Family History [...] HIGH MDM 60-74 MINUTES Rosalino Carmona MD [address] [place] [address] Referral ID Status Reason Start Date Expiration Date Visits Requested Visits Authorized [id number] Authorized PCP Requested Referral 10/14/2021 10/14/2022 1 1 Specialty Diagnoses / Procedures Referred By Contac t Referred To Contact XR IMAGING Diagnoses Chronic pain of both knees Procedures XR KNEE GENERAL 4V AP BOTH/PA BOTH/LAT/MERC BILATERAL RADIOLOGIC EXAM KNEE COMPLETE 4/MORE VIEWS Rosalino Carmona MD [address] [place] [address] Xr Imaging Referral ID Status Reason Start Date Expiration Date V isits Requested Visits Authorized [id number] Closed Auto-Generate d Referral 10/14/2021 11/13/2022 1 1 Specialty Diagnoses / Procedures Referred By Contleyda t Referred To Contact Diagnoses Anxiety Daquan, Orquidea Marcus, LAMP 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 [address] [place] [address] Referral ID Status Reason Start Date Expiration Date Visits Re quested Visits Authorized [id number] Closed 1 1 Medications Administered Section Inactive [...] section and content) DATE CREATED AUTHOR 12/16/2017 [facility] [place] DATE CREATED AUTHOR AUTHOR'S ORGANIZ ATION 01/02/2019 [facility] DATE CREATED AUTHOR AUTHOR'S ORGANIZ ATION 04/11/2022 [facility] DATE CREATED AUTHOR AUTHOR'S ORGANIZ ATION 12/27/2023 [facility] DATE CREATED AUTHOR AUTHOR'S ORGANIZ ATION 04/13/2024 [facility] DATE CREATED AUTHOR AUTHOR'S ORGANIZ ATION 01/09/2025 [facility] DATE CREATED AUTHOR AUTHOR'S ORGANBRONWYN ATION 02/12/2025 [facility] Source Comments (unrecognize d section and content) In the event this informatio n is protected by the Federal Confidentiality of Alcohol and Drug Abuse Patient Records regulations: The Federal rules restrict any use of the information to criminally investigate or prosecute any alcohol or drug abuse patient.[facility] the event this information is protected by the Federal Confidentiality of Alcohol and Drug Abuse Patient Records regulations: The Federal rules restrict any use of the information to criminally investigate or prosecute any alcohol or drug abuse patient.[facility]In the event this information is protected by the Federal Confidentiality of Alcohol and Drug Abuse Patient Records regulations: The Federal rules restrict any use of the information to criminally investigate or prosecute any alcohol or drug abuse patient.[facility] ColumbusIn the event this information is protected by the Federal Confidentiality of Alcohol and Drug Abuse Patient Records regulations: The Federal rules restrict any use of the information to criminally investigate or prosecute any alcohol or drug abuse patient.[facility] ColumbusIn the event this information is protected by the Federal Confidentiality of Alcohol and Drug Abuse Patient Records regulations: The Federal rules restrict any use of the information to criminally investigate or prosecute any alcohol or drug abuse patient.[facility] ColumbusIn the event this information is protected by the Federal Confidentiality of Alcohol and Drug Abuse Patient Records regulations: The Federal rules restrict any use of the information to criminally investigate or prosecute any alcohol or drug abuse patient.[facility] ColumbusIn the event this information is protected by the Federal Confidentiality of Alcohol and Drug Abuse Patient Records regulations: The Federal rules restrict any use of the information to criminally investigate or prosecute any alcohol or drug abuse patient.[facility] ColumbusIn the event this information is protected by the Federal Confidentiality of Alcohol and Drug Abuse Patient Records regulations: The Federal rules restrict any use of the information to criminally investigate or prosecute any alcohol or drug abuse patient.[facility] ColumbusIn the event this information is protected by the Federal Confidentiality of Alcohol and Drug Abuse Patient Records regulations: The Federal rules restrict any use of the information to criminally investigate or prosecute any alcohol or drug abuse patient.[facility] ColumbusIn the event this information is protected by the Federal Confidentiality of Alcohol and Drug Abuse Patient Records regulations: The Federal rules restrict any use of the information to criminally investigate or prosecute any alcohol or drug abuse patient.[facility] ColumbusIn the event this information is protected by the Federal Confidentiality of Alcohol and Drug Abuse Patient Records regulations: The Federal rules restrict any use of the information to criminally investigate or prosecute any alcohol or drug abuse patient.[facility] ColumbusIn the event this information is protected by the Federal Confidentiality of Alcohol and Drug Abuse Patient Records regulations: The Federal rules restrict any use of the information to criminally investigate or prosecute any alcohol or drug abuse patient.[facility] ColumbusIn the event this information is protected by the Federal Confidentiality of Alcohol and Drug Abuse Patient Records regulations: The Federal rules restrict any use of the information to criminally investigate or prosecute any alcohol or drug abuse patient.[facility] ColumbusIn the event this information is protected by the Federal Confidentiality of Alcohol and Drug Abuse Patient Records regulations: The Federal rules restrict any use of the information to criminally investigate or prosecute any alcohol or drug abuse patient.[facility] ColumbusIn the event this information is protected by the Federal Confidentiality of Alcohol and Drug Abuse Patient Records regulations: The Federal rules restrict any use of the information to criminally investigate or prosecute any alcohol or drug abuse patient.[facility] ColumbusIn the event this information is protected by the Federal Confidentiality of Alcohol and Drug Abuse Patient Records regulations: The Federal rules restrict any use of the information to criminally investigate or prosecute any alcohol or drug abuse patient.[facility] ColumbusIn the event this information is protected by the Federal Confidentiality of Alcohol and Drug Abuse Patient Records regulations: The Federal rules restrict any use of the information to criminally investigate or prosecute any alcohol or drug abuse patient.[facility] ColumbusIn the event this information is protected by the Federal Confidentiality of Alcohol and Drug Abuse Patient Records regulations: The Federal rules restrict any use of the information to criminally investigate or prosecute any alcohol or drug abuse patient.[facility] ColumbusIn the event this information is protected by the Federal Confidentiality of Alcohol and Drug Abuse Patient Records regulations: The Federal rules restrict any use of the information to criminally investigate or prosecute any alcohol or drug abuse patient.[facility] ColumbusIn the event this information is protected by the Federal Confidentiality of Alcohol and Drug Abuse Patient Records regulations: The Federal rules restrict any use of the information to criminally investigate or prosecute any alcohol or drug abuse patient.[facility] ColumbusIn the event this information is protected by the Federal Confidentiality of Alcohol and Drug Abuse Patient Records regulations: The Federal rules restrict any use of the information to criminally investigate or prosecute any alcohol or drug abuse patient.[facility] ColumbusIn the event this information is protected by the Federal Confidentiality of Alcohol and Drug Abuse Patient Records regulations: The Federal rules restrict any use of the information to criminally investigate or prosecute any alcohol or drug abuse patient.[facility] ColumbusIn the event this information is protected by the Federal Confidentiality of Alcohol and Drug Abuse Patient Records regulations: The Federal rules restrict any use of the information to criminally investigate or prosecute any alcohol or drug abuse patient.[facility] ColumbusIn the event this information is protected by the Federal Confidentiality of Alcohol and Drug Abuse Patient Records regulations: The Federal rules restrict any use of the information to criminally investigate or prosecute any alcohol or drug abuse patient.[facility] ColumbusIn the event this information is protected by the Federal Confidentiality of Alcohol and Drug Abuse Patient Records regulations: The Federal rules restrict any use of the information to criminally investigate or prosecute any alcohol or drug abuse patient.[facility] ColumbusIn the event this information is protected by the Federal Confidentiality of Alcohol and Drug Abuse Patient Records regulations: The Federal rules restrict any use of the information to criminally investigate or prosecute any alcohol or drug abuse patient.[facility] ColumbusIn the event this information is protected by the Federal Confidentiality of Alcohol and Drug Abuse Patient Records regulations: The Federal rules restrict any use of the information to criminally investigate or prosecute any alcohol or drug abuse patient.[facility] ColumbusIn the event this information is protected by the Federal Confidentiality of Alcohol and Drug Abuse Patient Records regulations: The Federal rules restrict any use of the information to criminally investigate or prosecute any alcohol or drug abuse patient.[facility] ColumbusIn the event this information is protected by the Federal Confidentiality of Alcohol and Drug Abuse Patient Records regulations: The Federal rules restrict any use of the information to criminally investigate or prosecute any alcohol or drug abuse patient.[facility] ColumbusIn the event this information is protected by the Federal Confidentiality of Alcohol and Drug Abuse Patient Records regulations: The Federal rules restrict any use of the information to criminally investigate or prosecute any alcohol or drug abuse patient.[facility] ColumbusIn the event this information is protected by the Federal Confidentiality of Alcohol and Drug Abuse Patient Records regulations: The Federal rules restrict any use of the information to criminally investigate or prosecute any alcohol or drug abuse patient.[facility] ColumbusIn the event this information is protected by the Federal Confidentiality of Alcohol and Drug Abuse Patient Records regulations: The Federal rules restrict any use of the information to criminally investigate or prosecute any alcohol or drug abuse patient.[facility] ColumbusIn the event this information is protected by the Federal Confidentiality of Alcohol and Drug Abuse Patient Records regulations: The Federal rules restrict any use of the information to criminally investigate or prosecute any alcohol or drug abuse patient.[facility] ColumbusIn the event this information is protected by the Federal Confidentiality of Alcohol and Drug Abuse Patient Records regulations: The Federal rules restrict any use of the information to criminally investigate or prosecute any alcohol or drug abuse patient.[facility] ColumbusIn the event this information is protected by the Federal Confidentiality of Alcohol and Drug Abuse Patient Records regulations: The Federal rules restrict any use of the information to criminally investigate or prosecute any alcohol or drug abuse patient.[facility] ColumbusIn the event this information is protected by the Federal Confidentiality of Alcohol and Drug Abuse Patient Records regulations: The Federal rules restrict any use of the information to criminally investigate or prosecute any alcohol or drug abuse patient.[facility] ColumbusIn the event this information is protected by the Federal Confidentiality of Alcohol and Drug Abuse Patient Records regulations: The Federal rules restrict any use of the information to criminally investigate or prosecute any alcohol or drug abuse patient.[facility] ColumbusIn the event this information is protected by the Federal Confidentiality of Alcohol and Drug Abuse Patient Records regulations: The Federal rules restrict any use of the information to criminally investigate or prosecute any alcohol or drug abuse patient.[facility] ColumbusIn the event this information is protected by the Federal Confidentiality of Alcohol and Drug Abuse Patient Records regulations: The Federal rules restrict any use of the information to criminally investigate or prosecute any alcohol or drug abuse patient.[facility] ColumbusIn the event this information is protected by the Federal Confidentiality of Alcohol and Drug Abuse Patient Records regulations: The Federal rules restrict any use of the information to criminally investigate or prosecute any alcohol or drug abuse patient.[facility] ColumbusIn the event this information is protected by the Federal Confidentiality of Alcohol and Drug Abuse Patient Records regulations: The Federal rules restrict any use of the information to criminally investigate or prosecute any alcohol or drug abuse patient.[facility] ColumbusIn the event this information is protected by the Federal Confidentiality of Alcohol and Drug Abuse Patient Records regulations: The Federal rules restrict any use of the information to criminally investigate or prosecute any alcohol or drug abuse patient.[facility] ColumbusIn the event this information is protected by the Federal Confidentiality of Alcohol and Drug Abuse Patient Records regulations: The Federal rules restrict any use of the information to criminally investigate or prosecute any alcohol or drug abuse patient.[facility] ColumbusIn the event this information is protected by the Federal Confidentiality of Alcohol and Drug Abuse Patient Records regulations: The Federal rules restrict any use of the information to criminally investigate or prosecute any alcohol or drug abuse patient.[facility] ColumbusIn the event this information is protected by the Federal Confidentiality of Alcohol and Drug Abuse Patient Records regulations: The Federal rules restrict any use of the information to criminally investigate or prosecute any alcohol or drug abuse patient.[facility] ColumbusIn the event this information is protected by the Federal Confidentiality of Alcohol and Drug Abuse Patient Records regulations: The Federal rules restrict any use of the information to criminally investigate or prosecute any alcohol or drug abuse patient.[facility] ColumbusIn the event this information is protected by the Federal Confidentiality of Alcohol and Drug Abuse Patient Records regulations: The Federal rules restrict any use of the information to criminally investigate or prosecute any alcohol or drug abuse patient.[facility] Reason for Visit (unrecogniz ed section and [...] MDM 60-74 MINUTES Rosalino Carmona MD [address] [place] [address] Referral ID Status Reason Start Date Expiration Date V isits Requested Visits Authorized [id number] Closed PCP Requested Referral 10/14/2021 10/14/2022 1 [...] Pain Established Patient Reason Comments Hospital F/U [facility] Follow up Reason Comments Insurance Authorization hydroxyzine Reason Onset Date Comments Transition Of Care 12/31/2023 [facility] Follow-up Day 18 Reason Onset Date Comments Transition Of Care 01/07/2024 [facility] Follow-up Day 15 Reason Comments [...] Care Teams (unrecognized sec tion and content) Clinical Informatics Physician Relationship Specialty Start Date End Date Rosalino Carmona MD [address] [place] [address] PCP - General Family Practice 02/17/18 Clinical Informatics Physician Relationship Specialty Start Date End Date Rosalino Carmona MD [address] [place] [address] PCP - General Family Practice 02/17/18 Clinical Informatics Physician Relationship Specialty Start Date End Date Rosalino Carmona MD [address] [place] [address] PCP - General Family Practice 02/17/18 Clinical Informatics Physician Relationship Specialty Start Date End Date Rosalino Carmona MD [address] [place] [address] PCP - General Family Medicine 02/17/18 Clinical Informatics Physician Relationship Specialty Start Date End Date Rosalino Carmnoa MD [address] [place] [address] PCP - General Family Medicine 02/17/18 Clinical Informatics Physician Relationship Specialty Start Date End Date Rosalino Carmona MD [address] [place] [address] PCP - General Family Medicine 02/17/18 Clinical Informatics Physician Relationship Specialty Start Date End Date Rosalino Carmona MD [address] [facility] [place] [address] PCP - General Family Medicine 02/17/18 Clinical Informatics Physician Relationship Specialty Start Date End Date Rosalino Carmona MD [address] [facility] [place] [address] PCP - General Family Medicine 02/17/18 Clinical Informatics Physician Relationship Specialty Start Date End Date Rosalino Carmona MD [address] [facility] [place] [address] PCP - General Family Medicine 02/17/18 Clinical Informatics Physician Relationship Specialty Start Date End Date Rosalino Carmona MD [address] [facility] [place] [address] PCP - General Family Medicine 02/17/18 Clinical Informatics Physician Relationship Specialty Start Date End Date Rosalino Carmona MD [address] [facility] [place] [address] PCP - General Family Medicine 02/17/18 Clinical Informatics Physician Relationship Specialty Start Date End Date Rosalino Carmona MD [address] [facility] [place] [address] PCP - General Family Medicine 02/17/18 Clinical Informatics Physician Relationship Specialty Start Date End Date Rosalino Carmona MD [address] [facility] [place] [address] PCP - General Family Medicine 02/17/18 Clinical Informatics Physician Relationship Specialty Start Date End Date Rosalino Carmona MD [address] [facility] [place] [address] PCP - General Family Medicine 02/17/18 Clinical Informatics Physician Relationship Specialty Start Date End Date Rosalino Carmona MD [address] [place] [address] PCP - General Family Medicine 02/17/18 Clinical Informatics Physician Relationship Specialty Start Date End Date Rosalino Carmona MD [address] [place] [address] PCP - General Family Medicine 02/17/18 Clinical Informatics Physician Relationship Specialty Start Date End Date Rosalino Carmona MD [address] [place] [address] PCP - General Family Medicine 02/17/18 Clinical Informatics Physician Relationship Specialty Start Date End Date Rosalino Carmona MD [address] [place] [address] PCP - General Family Medicine 02/17/18 Clinical Informatics Physician Relationship Specialty Start Date End Date Rosalino Carmona MD [address] [place] [address] PCP - General Family Medicine 02/17/18 Cherelle Rush, FERCHO [address] [place] [address] Primary Care Receiver Dispatcher 12/24/23 Clinical Informatics Physician Relationship Specialty Start Date End Date Rosalino Carmona MD [address] [place] [address] PCP - General Family Medicine 02/17/18 Cherelle Rush, FERCHO [address] [place] [address] Primary Care Receiver Dispatcher 12/24/23 Clinical Informatics Physician Relationship Specialty Start Date End Date Rosalino Carmona MD [address] [place] [address] PCP - General Family Medicine 02/17/18 Cherelle Rush, RN [address] [place] [address] Primary Care Receiver Dispatcher 12/24/23 Clinical Informatics Physician Relationship Specialty Start Date End Date Rosalino Carmona MD [address] [facility] [place] [address] PCP - General Family Medicine 02/17/18 Cherelle Rush, RN [address] [place] [address] Primary Care Receiver Dispatcher 12/24/23 Clinical Informatics Physician Relationship Specialty Start Date End Date Rosalino Carmona MD [address] [place] [address] PCP - General Family Medicine 02/17/18 Cherelle Rush, RN [address] [place] [address] Primary Care Receiver Dispatcher 12/24/23 Clinical Informatics Physician Relationship Specialty Start Date End Date Rosalino Carmona MD [address] [place] [address] PCP - General Family Medicine 02/17/18 Cherelle Rush, RN [address] [place] [address] Primary Care Receiver Dispatcher 12/24/23 Clinical Informatics Physician Relationship Specialty Start Date End Date Rosalino Carmona MD [address] [place] [address] PCP - General Family Medicine 02/17/18 Cherelle Rush, RN [address] [place] [address] Primary Care Receiver Dispatcher 12/24/23 Clinical Informatics Physician Relationship Specialty Start Date End Date Rosalino Carmona MD [address] [place] [address] PCP - General Family Medicine 02/17/18 Cherelle Rush, FERCHO [address] [place] [address] Primary Care Receiver Dispatcher 12/24/23 Clinical Informatics Physician Relationship Specialty Start Date End Date Rosalino Carmona MD [address] [place] [address] PCP - General Family Medicine 02/17/18 Clinical Informatics Physician Relationship Specialty Start Date End Date Rosalino Carmona MD [address] [place] [address] PCP - General Family Medicine 02/17/18 Clinical Informatics Physician Relationship Specialty Start Date End Date Rosalino Carmona MD [address] [place] [address] PCP - General Family Medicine 02/17/18 Clinical Informatics Physician Relationship Specialty Start Date End Date Rosalino Carmona MD [address] [place] [address] PCP - General Family Medicine 02/17/18 Clinical Informatics Physician Relationship Specialty Start Date End Date Rosalino Carmona MD [address] [place] [address] PCP - General Family Medicine 02/17/18 Clinical Informatics Physician Relationship Specialty Start Date End Date Rosalino Carmona MD [address] [place] [address] PCP - General Family Medicine 02/17/18 Keturah Velasco APRN.CARPET INSPECTOR [address] [place] [address] Nutrition Intern Family Medicine 03/30/24 Orquidea Robertson APRN.CARPET INSPECTOR [address] [facility] [place] [address] Nutrition Intern Family Medicine 03/30/24 Clinical Informatics Physician Relationship Specialty Start Date End Date Rosalino Carmona MD [address] [facility] [place] [address] PCP - General 04/22/20 Clinical Informatics Physician Relationship Specialty Start Date End Date Rosalino Carmona MD [address] [facility] [place] [address] PCP - General Family Medicine 02/17/18 Keturah Velasco APRN.CARPET INSPECTOR [address] [facility] [place] [address] Nutrition Intern Family Medicine 03/30/24 Orquidea Robertson APRN.CARPET INSPECTOR [address] [facility] [place] [address] Nutrition Intern Family Medicine 03/30/24 Clinical Informatics Physician Relationship Specialty Start Date End Date Rosalino Carmona MD [address] [facility] [place] [address] PCP - General Family Medicine 02/17/18 Keturah Velasco APRN.CARPET INSPECTOR [address] [facility] [place] [address] Nutrition Intern Family Medicine 03/30/24 Orquidea Robertson APRN.CARPET INSPECTOR [address] [facility] [place] [address] Nutrition Intern Family Medicine 03/30/24 Clinical Informatics Physician Relationship Specialty Start Date End Date Rosalino Carmona MD [address] [facility] [place] [address] PCP - General Family Medicine 02/17/18 Keturah Velasco APRN.CARPET INSPECTOR [address] [place] [address] Nutrition Intern Family [facility] 03/30/24 Orquidea Robertson APRN.CARPET INSPECTOR [address] [place] [address] [facility] Clinical Informatics Physician Relationship Specialty Start Date End Date Rosalino Carmona MD [address] [place] [address] PCP - General Family Medicine 02/17/18 Keturah Velasco APRN.CARPET INSPECTOR [address] [place] [address] Nutrition Intern Family Medicine 03/30/24 Orquidea Robertson APRN.CARPET INSPECTOR [address] [place] [address] [facility] Clinical Informatics Physician Relationship Specialty Start Date End Date Rosalino Carmona MD [address] [place] [address] PCP - General Family Medicine 02/17/18 Keturah Velasco APRN.CARPET INSPECTOR [address] [place] [address] Nutrition Intern Family Medicine 03/30/24 Orquidea Robertson APRN.CARPET INSPECTOR [address] [place] [address] [facility] 03/[facility] Clinical Informatics Physician Relationship Specialty Start Date End Date Rosalino Carmona MD [address] [facility] [address] PCP - General Family Medicine 02/17/18 Keturah Velasco LAMP 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 [address] [place] [address] Nutrition Intern Family Medicine 03/30/24 Orquidea Robertson LAMP 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 [address] [place] [address] [facility] 03/30/24 Clinical Informatics Physician Relationship Specialty Start Date End Date Rosalino Carmona MD [address] [place] [address] PCP - General Family Medicine 02/17/18 Keturah Velasco LAMP 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 [address] [place] [address] [facility] 03/[facility]/24 Orquidea Robertson LAMP 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 [address] [place] [address] [facility] 03/30/24 Clinical Informatics Physician Relationship Specialty Start Date End Date Rosalino Carmona MD [address] [place] [address] PCP - General Family Medicine 02/17/18 Keturah Velasco, LAMP 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 [address] [place] [address] Nutrition Intern Family Medicine 03/30/24 Orquidea Robertson APRN.[facility] [address] [place] [address] [facility] 03/[facility]/24 Team Status: Active Member Role/Relationship [...] BE BASED ON THE PRIMARY CLINICAL RECORDS. [employer] provides no warranty or guarantee of the accuracy or completeness of information in this document.
--- NOTE | 2025-03-26 06:28 | PCM.HP.STD ---
HPI - General General Date of Admission: 03/26/25 Date of Service: 03/26/25 Chief Complaint: Shortness of breath for 4 days progressive worsening HPI Narrative AMADOR GRANADOS, is a 84 F who presents to ED with severe shortness of breath for 4 to 5 days. She was recently started on antibiotic Augmentin and azithromycin but shortness of breath kept on worsening and at about midnight today she said she could not breathe. As per her daughter and present in ED, progressively her breathing was shallow and fast. She denies any chest pain or pressure. She also had chills but did not measure temperature. In ED, patient was tachypneic respiratory rate 38 to 40/min, pulse ox 52% on room air immediately put on BiPAP and ABG was done. Chest x-ray and CT was done which shows infiltrate and consolidation. Subsequent CTA chest was done which shows multifocal pneumonia, interstitial edema and further admitted in ICU. As per the daughter and , she smoked in her young days but quit in 1970. Denies any chronic lung disease but has history of CHF, persistent A-fib on chronic anticoagulation. [facility] Medical History Paroxysmal A-fib Chronic anticoagulation Longstanding persistent atrial fibrillation Left bundle branch block (LBBB) Obesity Paroxysmal atrial fibrillation Essential (primary) hypertension Transient global amnesia Anxiety disorder Home Medications ?Medication ?Instructions ?Recorded ?Last Taken ?Type hydralazine 50 mg tablet 50 mg PO TID 90 days #270 tabs 06/24/24 Unknown Rx Eliquis 5 mg tablet (apixaban) 5 mg PO BID #60 TABLETS 08/19/24 Unknown Rx metoprolol succinate 50 mg 50 mg PO BID blood pressure This 10/16/24 Unknown Rx tablet,extended release 24 hr is a dose increase #180 tabs losartan 100 mg tablet See Rx Instructions .Route 01/07/25 Unknown Rx .COMPLEX blood pressure #90 tabs levothyroxine 25 mcg tablet 25 mcg PO QDAY 01/08/25 Unknown History (Synthroid) amoxicillin 875 mg-potassium 875 mg PO Q12H #20 TABLETS 03/13/25 Unknown Rx clavulanate 125 mg tablet diltiazem HCl 180 mg 180 mg PO DAILY 03/26/25 Unknown History capsule,extended release 24 hr (Cardizem CD) ferrous sulfate 325 mg (65 mg 325 mg PO BID 03/26/25 Unknown History iron) tablet Allergy/AdvReac Type Severity Reaction Status Date / Time caffeine AdvReac Other Verified 03/26/25 03:32 Family History Father CVA (cerebral vascular accident) Mother Hypertension Heart disease CHF (congestive heart failure) Surgical History Hx of appendectomy H/O oophorectomy History of cholecystectomy H/O: hysterectomy Social History Smoking Status: Former smoker how long ago did patient quit smokin years age alcohol intake: never caffeine: No ROS ROS Narrative 14 system ROS is incomplete and not completely obtainable because on BiPAP severe shortness of breath and tachypnea. As per and daughter, her shortness of breath worsened with shallow and rapid breathing Denies burning micturition. Loss of appetite. Headache BM regular. Review of Systems ROS Unobtainable: other Details: On the BiPAP, severe shortness of breath/respiratory failure Vital Signs Vital Signs Vital Signs: 03/26/25 03:32 03/26/25 03:33 03/26/25 03:36 Temperature 99 F 99 F Temperature Source Axillary Axillary Pulse Rate 97 85 Respiratory Rate 38 H 40 H Respiratory Effort Respiratory Pattern Blood Pressure 157/54 H 157/54 H Blood Pressure Mean 88 88 Pulse Ox 52 81 85 Oxygen Delivery Method Room Air Non-Rebreather Bi-pap Oxygen Flow Rate (L/min) 15 Fraction of Inspired Oxygen (FIO2) 03/26/25 03:37 03/26/25 03:39 03/26/25 03:40 Temperature Temperature Source Pulse Rate 78 Respiratory Rate 38 H Respiratory Effort Short of Breath Respiratory Pattern Tachypnea Tachypnea Blood Pressure Blood Pressure Mean Pulse Ox 93 Oxygen Delivery Method Bi-pap Bi-pap Oxygen Flow Rate (L/min) Fraction of Inspired Oxygen (FIO2) 60 03/26/25 04:15 03/26/25 04:32 03/26/25 05:00 Temperature 100.3 F H 100.3 F H Temperature Source Axillary Axillary Pulse Rate 75 62 Respiratory Rate 38 H 35 H Respiratory Effort Respiratory Pattern Tachypnea Blood Pressure 113/49 L Blood Pressure Mean 70 Pulse Ox 95 97 Oxygen Delivery Method Bi-pap Oxygen Flow Rate (L/min) Fraction of Inspired Oxygen (FIO2) 70 03/26/25 05:30 03/26/25 05:40 03/26/25 06:00 Temperature 100.3 F H Temperature Source Pulse Rate 61 61 67 Respiratory Rate 22 H 22 H 25 H Respiratory Effort Respiratory Pattern Blood Pressure 120/61 120/61 130/75 H Blood Pressure Mean 80 80 93 Pulse Ox 98 98 96 Oxygen Delivery Method Bi-pap Bi-pap Oxygen Flow Rate (L/min) Fraction of Inspired Oxygen (FIO2) 70 Weight Weight: 184 lb 8.43 oz Body Mass Index (BMI) 29.7 Physical Exam Narrative General: Awake, opens eyes. Orientation cannot be ascertained. Patient communicative on direct questions only yes and no HEENT: Atraumatic, PERRLA, EOMI, Normocephalic. Oral: BiPAP Neck: Supple, No JVD, Negative Carotid Bruits Chest wall/Lungs: Air entry severely diminished. Bilateral coarse crepitations. Tachypnea and severe hypoxia Cardiovascular: Irregular rhythm, A-fib. No murmur gallop or rub. Abdomen: Bowel Sounds sluggish, Soft, Non Tender, Non-Distended : No dysuria. No renal angle tenderness. No suprapubic tenderness. Extremities: No remarkable edema, Capillary Refill Less than 3 Seconds Skin: No rashes, No breakdown Musculoskeletal: No Tenderness to Palpation of Joints or Extremities. ROM not assessed Neurological: Cranial nerves II-XII grossly intact, DTR 2+/4. No acute focal neurological deficit. Psych/Mental Status: Flat affect Results Lab / Micro Data 03/26/25 03:39 03/26/25 03:39 Labs: Laboratory Results - last 24 hr 03/26/25 03:39: WBC 25.1 H, RBC 3.13 L, Hgb 9.0 L, Hct 27.7 L, MCV 88.5, MCH 28.8, MCHC 32.5, RDW Std Deviation 44.5 H, RDW Coeff of August 13.9, Plt Count 413, MPV 10.2, Immature Gran % (Auto) 3.100 H, Neut % (Auto) 83.1 H, Lymph % (Auto) 7.6 L, Harper % (Auto) 5.7, Eos % (Auto) 0.1, Baso % (Auto) 0.4, Absolute Neuts (auto) 20.9 H, Absolute Lymphs (auto) 1.92, Nucleated RBC % 0.1, PT 25.0 H, INR 2.2, APTT 49.8 H, Sodium 129 L, Potassium 3.9, Chloride 98, Carbon Dioxide 14.8 L, Anion Gap 16 H, BUN 15, Creatinine 1.17, Estim Creat Clear Calc 39.02 L, Est GFR (MDRD) Non-Af 46 L, BUN/Creatinine Ratio 12.5, Glucose 183 H, Lactic Acid 2.6 H*, Calcium 9.0, Total Bilirubin 2.08 H, AST 18, ALT 12, Alkaline Phosphatase 88, Troponin T High Sens 22 H, Total Protein 7.0, Albumin 3.5, Globulin 3.5, Albumin/Globulin Ratio 1.0 Micro: Microbiology 03/26/25 04:16 Mucosa - Nose SARS-CoV-2, Influenza & RSV (PCR) - Final ABG Data ABG results: ABG 03/26/25 03:54 Specimen Type ART Sample Site R Radial pH 7.45 Bicarbonate Actual 15.3 L Total CO2 16 Base Excess -9 L O2 Saturation 91 L O2 % 60.0 ABG pCO2 22.0 L ABG pO2 56 L Darrion Test Positive Respiration Rate 14 O2 Delivery Device BiPAP Vent Mode Not entered Tidal Volume 475.0 POC PEEP 8 Clinical Comments Imaging Radiology Impression Chest CTA 03/26/25 04:05 IMPRESSION: Moderate cardiomegaly. Moderate interstitial congestion/edema. Moderate alveolar pulmonary edema. Moderate bilateral pleural effusions. Passive atelectatic airspace disease of the lower lobes. Bilateral widespread ground-glass densities of the lungs, possibly alveolar edema and/or widespread changes of pneumonia. This is more prominent in the central perihilar zones. Mildly prominent mediastinal and hilar lymph nodes with the largest measuring 3.2 cm, probably reactive. No CT evidence of pulmonary embolus or aortic dissection. Reading Location: [place] [address] Chest X-Ray 03/26/25 04:10 IMPRESSION: Unchanged bilateral pleural effusions. Unchanged passive atelectatic airspace disease of the lower lobes. Unchanged interstitial and alveolar pulmonary edema. Unchanged bilateral central perihilar airspace opacities of the lungs, probably pulmonary edema and/or pneumonia. Enlarged cardiac silhouette. Reading Location: [place] [address] Assessment & Plan Assessment/Plan (1) Acute hypoxemic respiratory failure: (2) Multifocal pneumonia: (3) Pulmonary edema: PLAN: Plan This 84-year-old female is being admitted for progressively worsening shortness of breath over 4 to 5 days. 1. Acute hypoxic respiratory failure secondary to multifocal pneumonia and interstitial edema: Patient is being admitted in ICU on BiPAP. ABG 7.4 09/11/55 on BiPAP TV 475 mL, RR 14, 60% FiO2. [employer] consulted for further management. During ED course, shortness of breath shows mild improvement. 2. Sepsis due to bilateral multifocal pneumonia, right more than left: The patient presented with sepsis with clinical indicators of tachypnea, severe hypoxia, leukocytosis with immature granulocytes 3.1%, left shift due to bilateral multifocal pneumonia with acute sepsis-related organ dysfunction as evidenced by acute hypoxic respiratory failure requiring BiPAP, lactic acidosis, mild altered mental status/encephalopathy and high anion gap metabolic acidosis. She is started on IV broad-spectrum antibiotic, vancomycin and Zosyn. Sepsis workup including blood culture and sputum culture and urinary antigens and respiratory panel. Triple PCR for SARS-CoV-2, flu and RSV are negative Sepsis order entered with less fluid than 30 mL/kg because of interstitial edema and history of heart failure 3. Acute on chronic HFpEF: She has an echo in February 2018 which shows EF 65%, normal RV size unable to assess diastolic dysfunction. Mild MR, mild TR RVSP [address] shows mild interstitial edema. proBNP ordered. Mild interstitial edema may be reactive from pneumonia or heart failure exacerbation. 2D echo is ordered 4. Chronic/persistent atrial fibrillation with chronic LBBB: Hold Cardizem, losartan and hydralazine. On Eliquis 5 mg p.o. twice daily continued. Low-dose metoprolol succinate 25 mg twice daily continued to prevent going into A-fib RVR 5. Essential hypertension: Currently patient not hypotensive but hold amlodipine and losartan as patient in sepsis. If patient blood pressure elevates, start antihypertensive medication. 6. Anxiety disorder and history of transient global amnesia: No acute issues DVT prophylaxis: On Eliquis 5 mg twice daily. Living will/advanced directive/end of life care: Patient does have living will or advanced directive which the daughter brought him. Living will he states if patient terminal condition, DNR CC arrest with no intubation. After discussion of benefits/risks procedures involved with full code, DNR CC arrest and DNR CC, with the patient and her daughter, the patient opted for DNR CC arrest with no intubation Patient doesn't want artificial life support including intubation, tube feed, ventilator and/chest compression, central venous catheter, vasopressor and DC shock if needed Total time spent in [id number] encounter in discussion of advanced directive 17 minutes. Microbiology Past 72 Hours 03/26/25 04:16 Mucosa - Nose SARS-CoV-2, Influenza & RSV (PCR) - Final Laboratory Results 03/26/25 03:39: WBC 25.1 H, RBC 3.13 L, Hgb 9.0 L, Hct 27.7 L, MCV 88.5, MCH 28.8, MCHC 32.5, RDW Std Deviation 44.5 H, RDW Coeff of August 13.9, Plt Count 413, MPV 10.2, Immature Gran % (Auto) 3.100 H, Neut % (Auto) 83.1 H, Lymph % (Auto) 7.6 L, Harper % (Auto) 5.7, Eos % (Auto) 0.1, Baso % (Auto) 0.4, Absolute Neuts (auto) 20.9 H, Absolute Lymphs (auto) 1.92, Nucleated RBC % 0.1, PT 25.0 H, INR 2.2, APTT 49.8 H, Sodium 129 L, Potassium 3.9, Chloride 98, Carbon Dioxide 14.8 L, Anion Gap 16 H, BUN 15, Creatinine 1.17, Estim Creat Clear Calc 39.02 L, Est GFR (MDRD) Non-Af 46 L, BUN/Creatinine Ratio 12.5, Glucose 183 H, Lactic Acid 2.6 H*, Calcium 9.0, Total Bilirubin 2.08 H, AST 18, ALT 12, Alkaline Phosphatase 88, Troponin T High Sens 22 H, Total Protein 7.0, Albumin 3.5, Globulin 3.5, Albumin/Globulin Ratio 1.0 03/26/25 03:54: Specimen Type ART, Sample Site R Radial, pH 7.45, Bicarbonate Actual 15.3 L, Total CO2 16, Base Excess -9 L, O2 Saturation 91 L, O2 % 60.0, ABG pCO2 22.0 L, ABG pO2 56 L, Darrion Test Positive, Respiration Rate 14, O2 Delivery Device BiPAP, Vent Mode Not entered, Tidal Volume 475.0, POC PEEP 8, Clinical Comments 03/26/25 05:30: Troponin T Hi Sens 2 Hr 20 H Clinical Impression(s) from Imaging Studies Chest CTA 03/26/25 04:05 IMPRESSION: Moderate cardiomegaly. Moderate interstitial congestion/edema. Moderate alveolar pulmonary edema. Moderate bilateral pleural effusions. Passive atelectatic airspace disease of the lower lobes. Bilateral widespread ground-glass densities of the lungs, possibly alveolar edema and/or widespread changes of pneumonia. This is more prominent in the central perihilar zones. Mildly prominent mediastinal and hilar lymph nodes with the largest measuring 3.2 cm, probably reactive. No CT evidence of pulmonary embolus or aortic dissection. Reading Location: [id number] Chest X-Ray 03/26/25 04:10 IMPRESSION: Unchanged bilateral pleural effusions. Unchanged passive atelectatic airspace disease of the lower lobes. Unchanged interstitial and alveolar pulmonary edema. Unchanged bilateral central perihilar airspace opacities of the lungs, probably pulmonary edema and/or pneumonia. Enlarged cardiac silhouette. [facility] Charges/Coding Visit Charges Inpatient E&M: 14705 Init Hosp L3 Procedures Hospitalists Procedures: 64108 Advncd Care Plan 30 Min
[2025-03-26 06:34] LABS: Troponin T High Sens 2 HR 20 ng/L (<=14)
--- NOTE | 2025-03-26 06:51 | SEPSISATNOTE ---
Sepsis Attestation Sepsis Alert: Yes Sepsis Attestation: Agree w/Sepsis Date exam was performed: 03/26/25 Time exam was performed: 05:28 Possible Source of Sepsis: Pulmonary Sepsis Organ Dysfunction Criteria Present: Acute Respiratory Failure (New need for BiPAP/CPAP or MV), Total Bilirubin > 2 mg/dl, INR > 1.5 or aPTT > 60 sec, Lactic Acid > 2 mmol/L, Serum CO2 < 20 mmol/L (on BMP), PaO2/FiO2 ratio < 300 and New/Unexplained change in mental status Fluid Resuscitation Fluid resuscitation indicated?: Yes Fluid Resuscitation ordered: Lesser volume fluid bolus ordered Amount of fluid ordered: 1,500 Reason for lesser fluid bolus:: Concern for fluid overload, Heart failure and BP Responded to a lesser volume Sepsis Note Date exam was performed: 03/26/25 Time exam was performed: 07:26 Sepsis Attestation: Sepsis re-evaluation was performed Response to fluids: Fluid responsive hypotension
--- NOTE | 2025-03-26 06:53 | ECHOD_ITS ---
Reason For Study Reason For Study: Acute Resp Failure, SOB Procedure This was a 2D Doppler, Color Flow transthoracic echocardiogram. Exam performed portable in ICU/CCU. Left Ventricle Normal LV size. The left ventricular ejection fraction is 55 %. Septal motion consistent with bundle branch block. No regional wall motion abnormalities noted. Right Ventricle Normal RV size. Normal systolic function. Atria The left atrium is mildly enlarged. Normal right atrium. Mitral Valve Normal mitral valve. Mild (1+) eccentric mitral valve insufficiency. Tricuspid Valve Normal tricuspid valve. Mild-Moderate (1-2+) tricuspid valve insufficiency. Pulmonary artery systolic pressure is 54 mmHg. Aortic Valve Trisinus/trileaflet aortic valve. Great Vessels Normal aortic root. The pulmonary artery is normal size. Inferior vena cava collapse with respiration. Pericardium/Pleural No pericardial effusion. Moderate size left pleural effusion. MMode/2D Measurements & Calculations LVIDd: 4.4 cm IVSd: 1.00 cm Ao root diam: 2.6 cm LVIDs: 2.8 cm LVPWd: 1.0 cm RVDd: 3.9 cm FS: 36.4 % LAV(MOD-bp): 67.8 ml LVAd ap4: 23.1 cm2 SV(MOD-sp4): 34.0 ml LAV(MOD-bp) Indexed: 34.7 ml/m2 LVLd ap4: 7.2 cm SI(MOD-sp4): 17.4 ml/m2 LAV(MOD-sp2): 52.2 ml EDV(MOD-sp4): 60.3 ml LAV(MOD-sp4): 63.9 ml EDV(sp4-el): 62.6 ml LVAs ap4: 14.1 cm2 LVLs ap4: 6.2 cm ESV(MOD-sp4): 26.3 ml ESV(sp4-el): 27.2 ml EF(MOD-sp4): 56.4 % EF(sp4-el): 56.6 % SV(sp4-el): 35.4 ml LA dimension(2D): 4.5 cm LA A4 area: 22.8 cm2 RA A4 area: 14.5 cm2 TAPSE: 1.4 cm Time Measurements MV dec time: 0.20 sec Doppler Measurements & Calculations MV E max ra: 152.7 cm/sec Lat Peak E' Ra: 10.5 cm/sec Med Peak E' Ra: 6.8 cm/sec MV A max ra: 49.6 cm/sec E/E' lat: 14.6 E/E' med: 22.6 MV E/A: 3.1 MV V2 max: 177.7 cm/sec Ao V2 max: 155.6 cm/sec MV max P.6 mmHg MV dec slope: 755.5 cm/sec2 Ao max P.7 mmHg MV V2 mean: 90.5 cm/sec Ao V2 mean: 105.3 cm/sec MV mean P.3 mmHg Ao mean P.2 mmHg MV V2 VTI: 47.0 cm Ao V2 VTI: 37.1 cm LV V1 max: 96.8 cm/sec PA V2 max: 121.5 cm/sec TR max ra: 354.3 cm/sec LV V1 max P.8 mmHg TR max P.2 mmHg ECHO/Echo Complete Interpretation Summary The left ventricular ejection fraction is 55 %. Normal LV size. The left atrium is mildly enlarged. Mild (1+) eccentric mitral valve insufficiency. Pulmonary artery systolic pressure is 54 mmHg. Ordering Physician: Denys Watts Referring Physician: Rosalino Raza Performed By: Sabiha Mena RDCS, RVT
[2025-03-26 07:04] LABS: Magnesium 1.8 mg/dL (1.5-2.2)
--- NOTE | 2025-03-26 07:14 | PCM.PN.HOSP ---
Reason for Visit Chief Complaint: Shortness of breath for 4 days progressive worsening Subjective Subjective Patient is an 84-year-old lady admitted with a 4 to 5-day history of progressive shortness of breath imaging studies obtained on admission demonstrated multifocal pneumonia and interstitial edema. Placed on BiPAP admitted to the intensive care unit for subsequent management Objective Data Objective Data Vital Signs: Vital Signs Temp Pulse Resp BP Pulse Ox O2 Del Method O2 Flow Rate 100.3 F H 67 25 H 130/75 H 96 Bi-pap 15 03/26/25 05:40 03/26/25 06:00 03/26/25 06:00 03/26/25 06:00 03/26/25 06:00 03/26/25 06:00 03/26/25 03:33 FiO2 70 03/26/25 06:00 Oxygen Flow Rate (L/min) 15 Oxygen Delivery Method Bi-pap Weight: 85.7 kg Body Mass Index (BMI) 30.4 Intake & Output: Intake and Output for Last 24 Hours 03/24/25 03/25/25 03/26/25 23:59 23:59 23:59 Intake Total 600 / 600 Balance 600 / 600 Lab / Micro Data 03/26/25 03:39 03/26/25 03:39 Labs: Laboratory Results - last 24 hr 03/26/25 03:39: WBC 25.1 H, RBC 3.13 L, Hgb 9.0 L, Hct 27.7 L, MCV 88.5, MCH 28.8, MCHC 32.5, RDW Std Deviation 44.5 H, RDW Coeff of August 13.9, Plt Count 413, MPV 10.2, Immature Gran % (Auto) 3.100 H, Neut % (Auto) 83.1 H, Lymph % (Auto) 7.6 L, [place] % (Auto) 5.7, Eos % (Auto) 0.1, Baso % (Auto) 0.4, Absolute Neuts (auto) 20.9 H, Absolute Lymphs (auto) 1.92, Nucleated RBC % 0.1, PT 25.0 H, INR 2.2, APTT 49.8 H, Sodium 129 L, Potassium 3.9, Chloride 98, Carbon Dioxide 14.8 L, Anion Gap 16 H, BUN 15, Creatinine 1.17, Estim Creat Clear Calc 39.02 L, Est GFR (MDRD) Non-Af 46 L, BUN/Creatinine Ratio 12.5, Glucose 183 H, Lactic Acid 2.6 H*, Calcium 9.0, Total Bilirubin 2.08 H, AST 18, ALT 12, Alkaline Phosphatase 88, Troponin T High Sens 22 H, Total Protein 7.0, Albumin 3.5, Globulin 3.5, Albumin/Globulin Ratio 1.0 03/26/25 05:30: Magnesium 1.8, Troponin T Hi Sens 2 Hr 20 H Micro: Microbiology 03/26/25 04:16 Mucosa - Nose SARS-CoV-2, Influenza & RSV (PCR) - Final ABG Data ABG results: ABG 03/26/25 03:54 Specimen Type ART Sample Site R Radial pH 7.45 Bicarbonate Actual 15.3 L Total CO2 16 Base Excess -9 L O2 Saturation 91 L O2 % 60.0 ABG pCO2 22.0 L ABG pO2 56 L Darrion Test Positive Respiration Rate 14 O2 Delivery Device BiPAP Vent Mode Not entered Tidal Volume 475.0 POC PEEP 8 Clinical Comments Radiography Diagnostic Testing: Radiology Impression Chest CTA 03/26/25 04:05 IMPRESSION: Moderate cardiomegaly. Moderate interstitial congestion/edema. Moderate alveolar pulmonary edema. Moderate bilateral pleural effusions. Passive atelectatic airspace disease of the lower lobes. Bilateral widespread ground-glass densities of the lungs, possibly alveolar edema and/or widespread changes of pneumonia. This is more prominent in the central perihilar zones. Mildly prominent mediastinal and hilar lymph nodes with the largest measuring 3.2 cm, probably reactive. No CT evidence of pulmonary embolus or aortic dissection. Reading Location: [place] [id number] Chest X-Ray 03/26/25 04:10 IMPRESSION: Unchanged bilateral pleural effusions. Unchanged passive atelectatic airspace disease of the lower lobes. Unchanged interstitial and alveolar pulmonary edema. Unchanged bilateral central perihilar airspace opacities of the lungs, probably pulmonary edema and/or pneumonia. Enlarged cardiac silhouette. Reading Location: [place] [id number] Physical Exam Narrative GENERAL: Patient is on BiPAP HEENT: Atraumatic; normocephalic EYES; Anicteric, Normal Conjunctiva NECK; supple, normal thyroid, RESPIRATORY: Diminished to auscultation CARDIOVASCULAR: Regular S1 S2, GI: soft, normoactive bowel sounds, : No Renal angle tenderness; EXTREMITIES: No edema, no clubbing, MUSCULOSKELETAL: no muscle wasting NEURO: Awake; no lateralizing signs. SKIN: No Rash PSYCH; Flat affect Assessment & Plan Assessment/Plan (1) Acute hypoxemic respiratory failure: (2) Multifocal pneumonia: (3) Pulmonary edema: PLAN: Plan Patient is an 84-year-old lady admitted with a 4 to 5-day history of progressive shortness of breath imaging studies obtained on admission demonstrated multifocal pneumonia and interstitial edema. Placed on BiPAP admitted to the intensive care unit for subsequent management 1. Acute hypoxic respiratory failure ? Secondary to combination of multifocal pneumonia and possible CHF. Patient placed on noninvasive ventilation BiPAP admitted to the intensive care unit 2. Sepsis secondary to multifocal pneumonia as well as acute cystitis ? Patient admitted to the intensive care unit treatment initiated per protocol, cultures sent patient placed on broad-spectrum antibiotic therapy 3. Acute on chronic congestive heart failure with preserved ejection fraction ? Complicating care given patient presentation presentation. Patient echo from February 2018 demonstrated EF of 65%. Repeat echo ordered for EF assessment 4. Pneumonia - Suspected to be secondary to gram-positive organism, Blood and sputum cultures sent. Patient placed on R Zosyn and vancomycin and placed on oxygen titrated to keep Pulse Ox greater than 90 5. Acute cystitis ? Will continue with current antibiotic therapy pending culture results 6. Anemia ? Secondary to chronic disorder monitoring H&H and transfuse if patient becomes symptomatic or hemoglobin falls below 7 7. Hypothyroidism ? Patient is on levothyroxine home dose continued 8. Chronic persistent A-fib ? Patient is on Cardizem held on admission. Patient is on systemic anticoagulation with apixaban continue 9 Essential hypertension ? Patient antihypertensives held given her presentation 10. Anxiety disorder Prior history 8. DVT prophylaxis Patient already on apixaban Time spent in the patient's overall evaluation,decision-making process, review of diagnostic data, adjustment of management, discussion with other providers, nursing nursing and ancillary staff involved in patient's care documentation,45 Minutes Charges/Coding Multi Select Codes Visit Charges Visit Charges: 53903 PROLNG IP/OBS E/M EA 15 MIN (03050, 80007, 43032, (19611 x 3))
[2025-03-26 07:26] LABS: CPK Total, Creatine Kinase 33 U/L (24-195)
--- NOTE | 2025-03-26 07:26 | EX.PCM.CONCC ---
Assessment & Plan Assessment/Plan (1) Acute hypoxemic respiratory failure: (2) Multifocal pneumonia: PLAN: Plan RECOMMENDATIONS: 1. Continue broad-spectrum antimicrobials. 2. Okay to transition from BiPAP to heated high flow oxygen. Titrate FiO2 to maintain saturations at or above 90%. 3. Given the severity of the patient's pneumonia, will initiate corticosteroids. 4. Echocardiogram is pending. 5. Continue Eliquis per home regimen. IMPRESSIONS: 1. Acute hypoxemic respiratory failure Most likely secondary to underlying bilateral pneumonia with possible superimposed pulmonary edema. At this time, we will continue supportive care with heated high flow oxygen to maintain saturations at or above 90%. Empiric broad-spectrum antimicrobials will be continued, pending infectious workup. Lastly, surface echocardiogram will be obtained. 2. Sepsis The patient presented with sepsis due to probable multifocal pneumonia with acute sepsis related organ dysfunction as evidenced by lactic acidemia, acute respiratory failure requiring BiPAP support and hyperbilirubinemia. Cultures are currently pending. I agree with conservative volume management over concerns for underlying CHF. Continue broad-spectrum antimicrobials, pending infectious workup. 3. History of hypertension/chronic atrial fibrillation Complicates care, management, recovery and prognosis. Continue home medications as indicated. CODE STATUS: Confirmed with the patient and family to be DNR CCA without intubation. This note was generated with [employer] dictation software. It may contain incorrect words, spelling, and punctuation that were not noted in checking the note before signing. HPI Consult Data Date of Consult: 03/26/25 HPI Narrative Reason for Consultation: Sepsis HPI Narrative: The patient is an 84-year-old female, with a history as outlined below, who presented to the emergency department on March 26 with worsening shortness of breath. The patient has a known history of chronic atrial fibrillation and hypertension. She denied any pre-existing lung conditions. She does not utilize supplemental oxygen at her baseline. The patient had been evaluated in the emergency department on March 13 with generalized malaise and concern for flu. Workup at that time revealed a possibly infiltrate in the left lower lobe. Therefore, the patient was placed on Augmentin and azithromycin. Despite the aforementioned interventions, the patient's respiratory status continued to decline. On presentation to the emergency department, the patient was noted to have a low-grade fever and was notably tachypneic. The patient was hypoxemic, requiring the initiation of noninvasive positive pressure ventilatory support. Laboratory evaluation revealed a white blood cell count of 25,000. Arterial blood gas was notable for a pH of 7.45 with a pCO2 of 22 and pO2 of 56. Chemistry profile was notable for a sodium of 129 with a bicarbonate of 15, anion gap of 16 and creatinine of 1.17. Lactate was elevated at 2.6. Total bilirubin was elevated at 2.08. Troponin was increased to 22 with a BNP of 5678. The patient was ultimately placed on antimicrobial therapy. She did not receive full sepsis related fluid resuscitation over concerns for pulmonary edema and volume overload. [facility] Medical History Paroxysmal A-fib Chronic anticoagulation Longstanding persistent atrial fibrillation Left bundle branch block (LBBB) Obesity Paroxysmal atrial fibrillation Essential (primary) hypertension Transient global amnesia Anxiety disorder Home Medications ?Medication ?Instructions ?Recorded ?Last Taken ?Type hydralazine 50 mg tablet 50 mg PO TID 90 days #270 tabs 06/24/24 Unknown Rx Eliquis 5 mg tablet (apixaban) 5 mg PO BID #60 TABLETS 08/19/24 Unknown Rx metoprolol succinate 50 mg 50 mg PO BID blood pressure This 10/16/24 Unknown Rx tablet,extended release 24 hr is a dose increase #180 tabs losartan 100 mg tablet See Rx Instructions .Route 01/07/25 Unknown Rx .COMPLEX blood pressure #90 tabs levothyroxine 25 mcg tablet 25 mcg PO QDAY 01/08/25 Unknown History (Synthroid) amoxicillin 875 mg-potassium 875 mg PO Q12H #20 TABLETS 03/13/25 Unknown Rx clavulanate 125 mg tablet diltiazem HCl 180 mg 180 mg PO DAILY 03/26/25 Unknown History capsule,extended release 24 hr (Cardizem CD) ferrous sulfate 325 mg (65 mg 325 mg PO BID 03/26/25 Unknown History iron) tablet Allergy/AdvReac Type Severity Reaction Status Date / Time caffeine AdvReac Other Verified 03/26/25 03:32 Family History Father CVA (cerebral vascular accident) Mother Hypertension Heart disease CHF (congestive heart failure) Surgical History Hx of appendectomy H/O oophorectomy History of cholecystectomy H/O: hysterectomy Social History Smoking Status: Former smoker how long ago did patient quit smokin years age alcohol intake: never caffeine: No ROS ROS Narrative 10 systems were reviewed with pertinent positives as noted in the HPI above. Physical Exam Const alert and no apparent distress Constitutional Narrative: Family is present at the bedside. Currently on BiPAP. General Appearance: cooperative HEENT normocephalic and head/scalp atraumatic Eyes PERRL, EOMs intact bilaterally and conjunctivae normal Neck supple General: trachea midline Chest inspection of chest normal Resp Auscultation: rales and diminished lung sounds Cardio Rate: tachycardic Rhythm: abnormal rhythm GI soft to palpation and non-tender Extremity no clubbing, cyanosis or edema Skin no rashes or lesions noted Neuro CN's II-XII intact bilaterally, moves all extremities and no focal motor deficits Psych cooperative and affect normal Lab / Micro Data 03/26/25 03:39 03/26/25 03:39 Labs: Laboratory Results - last 24 hr 03/26/25 03:39: WBC 25.1 H, RBC 3.13 L, Hgb 9.0 L, Hct 27.7 L, MCV 88.5, MCH 28.8, MCHC 32.5, RDW Std Deviation 44.5 H, RDW Coeff of August 13.9, Plt Count 413, MPV 10.2, Immature Gran % (Auto) 3.100 H, Neut % (Auto) 83.1 H, Lymph % (Auto) 7.6 L, [place] % (Auto) 5.7, Eos % (Auto) 0.1, Baso % (Auto) 0.4, Absolute Neuts (auto) 20.9 H, Absolute Lymphs (auto) 1.92, Nucleated RBC % 0.1, PT 25.0 H, INR 2.2, APTT 49.8 H, Sodium 129 L, Potassium 3.9, Chloride 98, Carbon Dioxide 14.8 L, Anion Gap 16 H, BUN 15, Creatinine 1.17, Estim Creat Clear Calc 39.02 L, Est GFR (MDRD) Non-Af 46 L, BUN/Creatinine Ratio 12.5, Glucose 183 H, Lactic Acid 2.6 H*, Calcium 9.0, Total Bilirubin 2.08 H, AST 18, ALT 12, Alkaline Phosphatase 88, Troponin T High Sens 22 H, Total Protein 7.0, Albumin 3.5, Globulin 3.5, Albumin/Globulin Ratio 1.0 03/26/25 05:30: Magnesium 1.8, Total Creatine Kinase 33, Troponin T Hi Sens 2 Hr 20 H Micro: Microbiology 03/26/25 04:16 Mucosa - Nose SARS-CoV-2, Influenza & RSV (PCR) - Final ABG Data ABG results: ABG 03/26/25 03:54 Specimen Type ART Sample Site R Radial pH 7.45 Bicarbonate Actual 15.3 L Total CO2 16 Base Excess -9 L O2 Saturation 91 L O2 % 60.0 ABG pCO2 22.0 L ABG pO2 56 L Darrion Test Positive Respiration Rate 14 O2 Delivery Device BiPAP Vent Mode Not entered Tidal Volume 475.0 POC PEEP 8 Clinical Comments Imaging Radiology Impression Chest CTA 03/26/25 04:05 IMPRESSION: Moderate cardiomegaly. Moderate interstitial congestion/edema. Moderate alveolar pulmonary edema. Moderate bilateral pleural effusions. Passive atelectatic airspace disease of the lower lobes. Bilateral widespread ground-glass densities of the lungs, possibly alveolar edema and/or widespread changes of pneumonia. This is more prominent in the central perihilar zones. Mildly prominent mediastinal and hilar lymph nodes with the largest measuring 3.2 cm, probably reactive. No CT evidence of pulmonary embolus or aortic dissection. Reading Location: [place] [address] Chest X-Ray 03/26/25 04:10 IMPRESSION: Unchanged bilateral pleural effusions. Unchanged passive atelectatic airspace disease of the lower lobes. Unchanged interstitial and alveolar pulmonary edema. Unchanged bilateral central perihilar airspace opacities of the lungs, probably pulmonary edema and/or pneumonia. Enlarged cardiac silhouette. Reading Location: [place] [address] Charges/Coding Visit Charges Inpatient E&M: 94483 Init Hosp L3
[2025-03-26 07:48] LABS: Reflex Lactate? Y
--- NOTE | 2025-03-26 08:05 | PHA.PHARE_ITS ---
Consult Antibiotic Management Pharmacy has been consulted to manage selected antibiotic: Vancomycin Type of Intervention Type of Consult: New start Suspected Infection Suspected Infection: Sepsis and Pneumonia Prior Doses of Antibiotics Prior Doses of Antibiotics Received/Current Regimen: had 2000mg IV x1 in ER starting at 05:02 today Labs Labs: Sodium 129 mmol/L (133-145) L 03/26/25 03:39 Potassium 3.9 mmol/L (3.3-5.1) 03/26/25 03:39 Chloride 98 mmol/L (98-108) 03/26/25 03:39 Carbon Dioxide 14.8 mmol/L (21.0-32.0) L 03/26/25 03:39 Anion Gap 16 (5-15) H 03/26/25 03:39 BUN 15 mg/dL (4-19) 03/26/25 03:39 Creatinine 1.17 mg/dL (0.70-1.20) 03/26/25 03:39 Est GFR (MDRD) Non-Af 46 (>60) L 03/26/25 03:39 BUN/Creatinine Ratio 12.5 RATIO (10-20) 03/26/25 03:39 Glucose 183 mg/dL (70-99) H 03/26/25 03:39 Microbiology Microbiology: Microbiology 03/26/25 04:16 Mucosa - Nose SARS-CoV-2, Influenza & RSV (PCR) - Final Dosing Weight Weight used for dosin.7 kg Estimated Creatinine Clearance Estimated Creatinine Clearance: 39 ml/min Goal Trough Goal Trough: 15-20 mcg/mL Pharmacy Plan for Drug Dosing Pharmacy Plan for Drug Dosing: Starting 24 hours after the ER dose, continue with 1250mg IV q24h per [facility] dosing protocol. Check a trough before the 3rd overall dose. Pharmacy Service will continue to monitor and adjust dosing as required. Follow-Up Labs Follow-Up Labs: Trough: Vancomycin Date/Time Labs Ordered Labs to be done on [date and time ordered]: 03/28 04:30
[2025-03-26 08:06] LABS: Pro- Brain NATRIURETIC PEPTIDE 5678 pg/mL (<=1800)
[2025-03-26 09:08] LABS: Mucous, Urine 0 SEEN /hpf (<or=2+); Red Blood Cells-Urine 0 SEEN /hpf (0-5)
[2025-03-26 09:18] LABS: Color, Urine Yellow (Yellow); Glucose, Dipstick Normal (Normal); Ketone-Dipstick Negative (Negative); Leukocyte Esterase-Dipstick 500 /ul (Negative); Nitrite-Dipstick Negative (Negative); Occult Blood-Urine Negative /ul (Negative); Protein-Dipstick 30 mg/dl (Negative); Specific Gravity, Urine 1.010 (1.002-1.030); Urine Bilirubin Dipstick Negative (Negative)
[2025-03-26 09:23] LABS: Squamous Epithelial Cells - UA 0-5 SEEN /hpf (5-10)
[2025-03-26 09:33] LABS: Troponin T High Sens 4 HR 19 ng/L (<=14)
[2025-03-26] MEDS: Metoprolol(XL)Succ 25 MG Tablet PO ×2 (09:45→22:26)
[2025-03-26] MEDS: APIXABAN 5 MG TABLET PO ×2 (09:45→22:27)
[2025-03-26] MEDS: 0.9% Saline Lock 10 ML Syringe IV ×3 (09:46→23:31)
--- NOTE | 2025-03-26 11:13 | SEPSISATNOTE ---
Sepsis Attestation Sepsis Attestation: Agree w/Sepsis Date exam was performed: 03/26/25 Time exam was performed: 06:28 Possible Source of Sepsis: Pulmonary and Genitourinary Sepsis Organ Dysfunction Criteria Present: Acute Respiratory Failure (New need for BiPAP/CPAP or MV) Fluid Resuscitation Fluid resuscitation indicated?: Yes Fluid Resuscitation ordered: Lesser volume fluid bolus ordered Amount of fluid ordered: 500 Reason for lesser fluid bolus:: Concern for fluid overload Sepsis Note Date exam was performed: 03/26/25 Time exam was performed: 09:00
--- NOTE | 2025-03-26 13:04 | CASEMGMT ---
Social Work SW?to room to meet with patient for initial transition planning/care coordination?assessment.?SW?introduced self and role at [facility].? Pt voices understanding and consents to?assessment.? Pt is A/Ox4 and answers all questions appropriately.?? Care providers, pharmacy, and demographics verified. PCP: Ry Specialists: Lolita, cardiology Preferred Pharmacy: [facility], [place] Insurance: Medicare Living Will/HPOA:?Pt has a living will on file. No HCPOA on file. Pt states she has completed and her dgt Melissa is HCPOA. LNOK: Anton and daughter Melissa Living Arrangements: Pt lives with her in a mobile home with a ramp entrance. Pt states that she has been independent with ADLs until very recently in which her has been assisting her. Pt's completes the IADLs Transportation:?Pt states she still drives and has no concerns with transportation. DME: Pt ambulates independently, but does have a cane and a walker at home. Pt also has a raised toilet seat. Pt denies using oxygen at home. HHC/SNF: None prior. PLAN: Pt is hopeful she can return home with her at time of discharge. Pt currently using [employer] and is not ready for dc at ths time. SW spoke briefly with pt regarding home health services and pt is open to this is needed. RNCM updated and SW/RNCM to follow for oxygen needs and possible home health. ALEYDA Brumfield
[2025-03-26] MEDS: Piperacil/Tazobactam 3.375 GM in 0.9% Normal Saline (50mL MB+) 50 ML IV ×2 (15:35→22:34)
--- NOTE | 2025-03-26 16:44 | NURSING ---
1200: Patient SPO2 87% after exertion. FIO2 increased and respiratory therapy notified of increased oxygen needs. 1300: Patient placed on BIPAP while sleeping 1650: Report given to Man SECURITY REP. Patient transferred on bipap.
--- NOTE | 2025-03-26 17:05 | CHAPLAIN ---
Type of Pastoral Visit _x__ Initial Visit ___ Follow-up Visit ___ On-call Visit ___ General Patient Visit ___ Spiritual Assessment ___ Family Conference ___ Bereavement ___ Rapid Response ___ Code Blue ___ Other (describe below) Pastoral Care Referral From _x__ Patient ___ Family ___ Nurse ___ Physician ___ Services Account Manager ___ Putty Remover ___ Other (describe below) Sacrament/Intervention ___ Active listening ___ Anointing ___ Orthodoxy ___ Bereavement ___ Communion ___ Marce exploration ___ ___ Life review _x__ Prayer ___ Reconciliation ___ Sacrament of Sick _x__ Supportive presence ___ Wedding ___ Other (describe below) Pastoral Comments patient was sitting up but on the bi-pap machine which limited her ability to talk; a family member was present who did more of the talking to give information; pt did follow the conversation and agreed to having prayer for her support today;
[2025-03-27] VITALS (16 sets, daily range): BP systolic 117–124; BP diastolic 43–62; PULSE 69–88; RESP 14–25; TEMP 36.2–36.7; O2SAT 93–100; BMI 30.3
[2025-03-27] MEDS: Vancomycin HCl 1,250 MG in 0.9% Normal Saline (250mL Bag) 250 ML 167 MG IV (04:42)
[2025-03-27 05:26] LABS: Hematocrit 23.5 % (37-47); Hemoglobin 7.5 g/dL (12.0-15.0); Immature Granulocytes Count 0.320 X10^3/uL (0.0-0.0); Mean Corp Hgb Conc 31.9 g/dL (32-36); Mean Corpuscular Volume 88.7 fL (81-99); Mean Platelet Vol. 10.4 fl (6.2-12.0); NRBC Flagged by Analyzer 0 % (0-5); Platelet Count 318 K/mm3 (150-450); RBC Distribution Width CV 13.6 % (11.6-14.6); RBC Distribution Width SD 44.0 fl (35.1-43.9); Red Blood Count 2.65 M/mm3 (4.2-5.4); White Blood Count 16.9 K/mm3 (4.4-11.0)
[2025-03-27 06:03] LABS: Anion Gap 12 (5-15); BUN 19 mg/dL (4-19); BUN/Creat Ratio 15.8 RATIO (10-20); Calcium,Total 8.8 mg/dL (7.6-11.0); Carbon Dioxide 16.8 mmol/L (21.0-32.0); Chloride 104 mmol/L (98-108); Estimated Creatinine Clearance 39.38 ml/min (50-250); Glucose 158 mg/dL (70-99); Magnesium 2.4 mg/dL (1.5-2.2); Potassium 3.6 mmol/L (3.3-5.1)
[2025-03-27] MEDS: 0.9% Saline Lock 10 ML Syringe IV ×5 (06:35→22:00)
[2025-03-27] MEDS: Piperacil/Tazobactam 3.375 GM in 0.9% Normal Saline (50mL MB+) 50 ML IV ×3 (06:35→22:04)
[2025-03-27] MEDS: APIXABAN 5 MG TABLET PO ×2 (09:12→22:01)
--- NOTE | 2025-03-27 09:15 | PCM.PN.HOSP ---
Reason for Visit Chief Complaint: Shortness of breath for 4 days progressive worsening Subjective Subjective Patient was weaned off BiPAP and placed on Airvo and transferred from the ICU to PCU. Objective Data Objective Data Vital Signs: Vital Signs Temp Pulse Resp BP Pulse Ox O2 Del Method O2 Flow Rate 97.5 F L 81 18 117/57 L 98 Airvo 50 03/27/25 09:09 03/27/25 09:09 03/27/25 09:09 03/27/25 09:09 03/27/25 09:09 03/27/25 09:09 03/27/25 09:09 FiO2 75 03/27/25 09:09 Oxygen Flow Rate (L/min) 50 Oxygen Delivery Method Airvo Weight: 85.3 kg Body Mass Index (BMI) 30.3 Intake & Output: Intake and Output for Last 24 Hours 03/25/25 03/26/25 03/27/25 23:59 23:59 23:59 Intake Total 1190 / 1190 325 / 325 Output Total 250 / 250 Balance 940 / 940 325 / 325 Lab / Micro Data 03/27/25 04:28 03/27/25 04:28 Labs: Laboratory Results - last 24 hr 03/26/25 08:45: Troponin T Hi Sens 4Hr 19 H 03/26/25 08:55: Urine Color Yellow, Urine Clarity Clear, Urine pH 5.0, Ur Specific [place] 1.010, Urine Protein 30 H, Urine Glucose (UA) Normal, Urine Ketones Negative, Urine Occult Blood Negative, Urine Nitrite Negative, Urine Bilirubin Negative, Urine Urobilinogen Normal, Ur Leukocyte Esterase 500 H, Urine RBC 0 SEEN, Urine WBC 10-25 SEEN, Ur Squamous Epith Cells 0-5 SEEN, Urine Bacteria 0 SEEN, Urine Mucus 0 SEEN 03/27/25 04:28: WBC 16.9 H, RBC 2.65 L, Hgb 7.5 L, Hct 23.5 L, MCV 88.7, MCH 28.3, MCHC 31.9 L, RDW Std Deviation 44.0 H, RDW Coeff of August 13.6, Plt Count 318, MPV 10.4, Immature Gran % (Auto) 1.900 H, Neut % (Auto) 89.1 H, Lymph % (Auto) 5.0 L, [place] % (Auto) 3.8, Eos % (Auto) 0.0, Baso % (Auto) 0.2, Absolute Neuts (auto) 15.1 H, Absolute Lymphs (auto) 0.84, Nucleated RBC % 0, Sodium 133, Potassium 3.6, Chloride 104, Carbon Dioxide 16.8 L, Anion Gap 12, BUN 19, Creatinine 1.17, Estim Creat Clear Calc 39.38 L, Est GFR (MDRD) Non-Af 46 L, BUN/Creatinine Ratio 15.8, Glucose 158 H, Calcium 8.8, Phosphorus 2.9, Magnesium 2.4 H Micro: Microbiology 03/26/25 08:55 Urine, Clean Catch Urine Culture - Preliminary Gram negative suzanne 03/26/25 07:34 Mucosa - Nasopharyngeal Respiratory Panel (PCR) - Final 03/26/25 09:40 Nasal Secretion MRSA (PCR) - Final 03/26/25 08:55 Urine, Clean Catch Streptococcus pneumoniae Antigen (M - Final 03/26/25 08:55 Urine, Clean Catch Legionella Antigen - Final 03/26/25 04:16 Mucosa - Nose SARS-CoV-2, Influenza & RSV (PCR) - Final Radiography Diagnostic Testing: Radiology Impression Echocardiogram 03/26/25 06:53 Interpretation Summary The left ventricular ejection fraction is 55 %. Normal LV size. The left atrium is mildly enlarged. Mild (1+) eccentric mitral valve insufficiency. Pulmonary artery systolic pressure is 54 mmHg. Ordering Physician: Denys Watts Referring Physician: Rosalino Raza Performed By: Sabiha Mena, HERMINIO, RVT Physical Exam Narrative GENERAL: Patient is on on Airvo HEENT: Atraumatic; normocephalic EYES; Anicteric, Normal Conjunctiva NECK; supple, normal thyroid, RESPIRATORY: Diminished to auscultation CARDIOVASCULAR: Regular S1 S2, GI: soft, normoactive bowel sounds, : No Renal angle tenderness; EXTREMITIES: No edema, no clubbing, MUSCULOSKELETAL: no muscle wasting NEURO: Awake; no lateralizing signs. SKIN: No Rash PSYCH; Flat affect Assessment & Plan Assessment/Plan (1) Acute hypoxemic respiratory failure: (2) Multifocal pneumonia: (3) Pulmonary edema: PLAN: Plan Patient is an 84-year-old lady admitted with a 4 to 5-day history of progressive shortness of breath imaging studies obtained on admission demonstrated multifocal pneumonia and interstitial edema. Placed on BiPAP admitted to the intensive care unit for subsequent management 1. Acute hypoxic respiratory failure ? Secondary to combination of multifocal pneumonia and possible CHF. Patient placed on noninvasive ventilation BiPAP admitted to the intensive care unit ? 03/27/2025; patient was weaned off BiPAP and placed on Airvo. Patient was transferred from ICU to PCU 2. Sepsis secondary to multifocal pneumonia as well as acute cystitis ? Patient admitted to the intensive care unit treatment initiated per protocol, cultures sent patient placed on broad-spectrum antibiotic therapy ? 03/27/2025; patient responded to fluid resuscitation and did not require pressors 3. Acute on chronic congestive heart failure with preserved ejection fraction ? Complicating care given patient presentation presentation. Patient echo from February 2018 demonstrated EF of 65%. Repeat echo ordered for EF assessment ? 03/27/2025; repeat echo obtained on 03/26/2025 did show The left ventricular ejection fraction is 55 %. Normal LV size. The left atrium is mildly enlarged. Mild (1+) eccentric mitral valve insufficiency. Pulmonary artery systolic pressure is 54 mmHg. 4. Pneumonia - Suspected to be secondary to gram-positive organism, Blood and sputum cultures sent. Patient placed on R Zosyn and vancomycin and placed on oxygen titrated to keep Pulse Ox greater than 90 5. Acute cystitis ? Will continue with current antibiotic therapy pending culture results 6. Anemia ? Secondary to chronic disorder monitoring H&H and transfuse if patient becomes symptomatic or hemoglobin falls below 7 ? 03/27/2025; significant drop in patient hemoglobin to 7.5. Will repeat H&H in the morning and transfuse if hemoglobin falls below 7 7. Hypothyroidism ? Patient is on levothyroxine home dose continued 8. Chronic persistent A-fib ? Patient is on Cardizem held on admission. Patient is on systemic anticoagulation with apixaban continue 9 Essential hypertension ? Patient antihypertensives held given her presentation 10. Anxiety disorder Prior history 8. DVT prophylaxis Patient already on apixaban Time spent in the patient's overall evaluation,decision-making process, review of diagnostic data, adjustment of management, discussion with other providers, nursing nursing and ancillary staff involved in patient's care documentation,50 Minutes Charges/Coding Visit Charges Inpatient E&M: 09203 Subs Hosp L3
--- NOTE | 2025-03-27 09:57 | CASEMGMT ---
Addendum entered by Evelyn Hernandez 03/27/25 09:58: SW will follow up for choices. Original Note: Social Work A list of?HH providers including quality and resource use data and consistent with the patient's preferred geographic region, medical needs, and insurance network was created in [facility] Guide.?This list was provided to the patient. TITO Luque
--- NOTE | 2025-03-27 11:31 | CASEMGMT ---
Social Work Patients choices for - 1st- [facility], 2nd- [facility]. SW made the referral to [facility]. TITO Prado
--- NOTE | 2025-03-27 14:45 | PN.CC_ITS ---
Objective Data Objective Data Vital Signs: Vital Signs Last response 3 Temperature 36.4 C L 03/27/25 14:33 Temperature Source Oral 03/27/25 14:33 Pulse Rate 82 03/27/25 14:43 Pulse Strength Normal (2+) 03/27/25 10:00 Respiratory Rate 22 H 03/27/25 14:43 Respiratory Effort Normal, Non-Labored 03/27/25 08:02 Respiratory Depth Normal 03/27/25 08:02 Respiratory Pattern Tachypnea 03/27/25 14:43 Blood Pressure 123/44 H 03/27/25 14:33 Blood Pressure Mean 70 03/27/25 14:33 Blood Pressure Source Monitor 03/27/25 14:33 Blood Pressure Position Semi-Fowlers 03/27/25 14:33 Blood Pressure Location Left Arm 03/27/25 14:33 Pulse Ox 100 03/27/25 14:43 Oxygen Delivery Method Airvo 03/27/25 14:45 Oxygen Flow Rate (L/min) 50 03/27/25 14:45 Fraction of Inspired Oxygen (FIO2) 60 03/27/25 14:45 I&O: I&O Last 24 Hours 3 03/26/25 03/27/25 03/27/25 23:59 11:59 23:59 Intake Total 50 / 1190 375 / 735 360 / 735 Balance 50 / 940 375 / 735 360 / 735 I&O: Total Stay 3 03/26/25 03:31 thru 03/27/25 12:00 Intake Total 1925 Output Total 250 Balance 1675 Current Meds Ordered / Administered: Current meds ordered / Administered 3 Generic Name Dose Route Start Last Admin Trade Name Fresteffi PRN Reason Stop Dose Admin Acetaminophen 650 mg 03/26/25 06:38 Acetaminophen 325 Mg Tablet PO Q6H PRN PRN Pain 1-10 Or Fever>100.7 Albuterol Sulfate 2.5 mg 03/27/25 10:12 Albuterol 2.5 Mg/3 Ml Vial.Neb. INHALATION Q2H PRN PRN SHORTNESS OF BREATH Albuterol/Ipratropium 3 ml 03/27/25 10:15 03/27/25 14:44 Ipratropium/Albuterol Sulfate 3 Ml Ampul.Neb INHALATION 3 ml Q4H.RT MARIAELENA Administration Apixaban 5 mg 03/26/25 10:00 03/27/25 09:12 Apixaban 5 Mg Tablet PO 5 mg BID MARIAELENA Administration Guaifenesin 1,200 mg 03/27/25 10:15 03/27/25 11:28 Guaifenesin 1,200 Mg Tablet PO 1,200 mg BID MARIAELENA Administration Hydrocortisone Sodium Succinate 50 mg 03/26/25 12:00 03/27/25 11:28 Hydrocortisone Sod Succinate 100 Mg/2 Ml Vial IV 50 mg Q6 MARIAELENA Administration Piperacillin Sod/Tazobactam 50 mls @ 12.5 mls/hr 03/26/25 14:00 03/27/25 14:29 Sod 3.375 gm/ Sodium Chloride IV 12.5 mls/hr Q8 MARIAELENA Administration Vancomycin IV-PHARMACY TO DOSE 500 mls @ 250 mls/hr 03/26/25 10:00 1 each/ Sodium Chloride IV DAILY PRN RX TO DOSE Protocol Sodium Chloride 250 mls @ 15 mls/hr 03/26/25 06:39 IV .[id number] PRN Saline Flush Sodium Chloride 250 mls @ 15 mls/hr 03/26/25 06:39 IV .[id number] PRN Additional IVPB Infusion Vancomycin HCl 1,250 mg/ 275 mls @ 167 mls/hr 03/27/25 05:00 03/27/25 06:42 Sodium Chloride IV Infused Q24H MARIAELENA Infusion Levothyroxine Sodium 25 mcg 03/27/25 06:00 03/27/25 06:42 Levothyroxine 25 Mcg Tablet PO 25 mcg DAILY@0600 MARIAELENA Administration Metoprolol Succinate 25 mg 03/26/25 10:00 03/27/25 09:13 Metoprolol(Xl)Succ 25 Mg Tablet PO Not Given BID [facility] Protocol Nitroglycerin 0.4 mg 03/26/25 06:38 Nitroglycerin (Inpatient Use) 0.4 Mg Tab.Subl SL Q5M PRN CARDIAC/CHEST PAIN Oxycodone HCl 2.5 - 5 mg 03/26/25 06:38 Oxycodone 5 Mg Tablet PO Q4H PRN PRN Pain Score 4-10 Senna/Docusate Sodium 2 tablet 03/26/25 06:38 Senna/Docusate Sodium 1 Tablet PO BID PRN PRN Constipation Sodium Chloride 10 - 40 ml 03/26/25 06:39 03/27/25 14:32 0.9% Saline Lock 10 Ml Syringe IV 10 ml UD PRN Administration SALINE FLUSH Vancomycin Protocol 1 lab 03/28/25 03:30 Vancomycin Trough/Random Due 03/28/25 05:30 DAILY [facility] Lab / Micro Data 03/27/25 04:28 03/27/25 04:28 Labs: Laboratory Results - last 24 hr 03/27/25 04:28: WBC 16.9 H, RBC 2.65 L, Hgb 7.5 L, Hct 23.5 L, MCV 88.7, MCH 28.3, MCHC 31.9 L, RDW Std Deviation 44.0 H, RDW Coeff of August 13.6, Plt Count 318, MPV 10.4, Immature Gran % (Auto) 1.900 H, Neut % (Auto) 89.1 H, Lymph % (Auto) 5.0 L, [place] % (Auto) 3.8, Eos % (Auto) 0.0, Baso % (Auto) 0.2, Absolute Neuts (auto) 15.1 H, Absolute Lymphs (auto) 0.84, Nucleated RBC % 0, Sodium 133, Potassium 3.6, Chloride 104, Carbon Dioxide 16.8 L, Anion Gap 12, BUN 19, Creatinine 1.17, Estim Creat Clear Calc 39.38 L, Est GFR (MDRD) Non-Af 46 L, BUN/Creatinine Ratio 15.8, Glucose 158 H, Calcium 8.8, Phosphorus 2.9, Magnesium 2.4 H Micro: Microbiology 03/26/25 19:15 Sputum, Expectorated/Coughed Gram Stain - Final 03/26/25 19:15 Sputum, Expectorated/Coughed Respiratory Culture - Preliminary Appears to be normal respiratory roni. Further studies to follow. 03/26/25 08:55 Urine, Clean Catch Urine Culture - Preliminary Gram negative suzanne 03/26/25 07:34 Mucosa - Nasopharyngeal Respiratory Panel (PCR) - Final 03/26/25 09:40 Nasal Secretion MRSA (PCR) - Final Assessment and Plan . Assessment and plan: A/P: 1. Resp Failure: Acute/hypoxemic. On HHFNC at 75%. BIPAP as needed. 2. CAP: Subacute sxs. Failed outpt management--> augmentin/azithro. Viral studies/legionella/strep:-. On Vanc/zosyn. Repeat CXR in am 3. Anemia: Some decrease in H/H. Will follow. 4. Metabolic Acidosis: Serum HCO3 better today. 5. FEN: oral diet 6. Px: chemical(on AC) Critical Care Time: 50 minutes The entirety of this encounter was done via Telemedicine Physical Exam Narrative awake, NAD talking in complete sentences symmetric chest expansion, Coarse BS RRR, no m/r/g Abd :soft, obese, nt No c/e/c Skin: no rashes Subjective Subjective feeling better.
[2025-03-27] MEDS: Metoprolol(XL)Succ 25 MG Tablet PO (22:02)
[2025-03-28] VITALS (22 sets, daily range): BP systolic 105–146; BP diastolic 44–73; PULSE 75–88; RESP 17–30; TEMP 36.2–36.9; O2SAT 94–99; BMI 30.2
[2025-03-28] MEDS: 0.9% Saline Lock 10 ML Syringe IV ×8 (00:46→17:25)
[2025-03-28 04:43] LABS: Hematocrit 21.7 % (37-47); Hemoglobin 6.9 g/dL (12.0-15.0); Immature Granulocytes Count 0.380 X10^3/uL (0.0-0.0); Mean Corp Hgb Conc 31.8 g/dL (32-36); Mean Corpuscular Volume 89.3 fL (81-99); Mean Platelet Vol. 10.4 fl (6.2-12.0); NRBC Flagged by Analyzer 0 % (0-5); Platelet Count 326 K/mm3 (150-450); RBC Distribution Width CV 13.6 % (11.6-14.6); RBC Distribution Width SD 44.5 fl (35.1-43.9); Red Blood Count 2.43 M/mm3 (4.2-5.4); White Blood Count 19.0 K/mm3 (4.4-11.0)
[2025-03-28] MEDS: Vancomycin Trough/Random Due 1 LAB MC (05:03)
[2025-03-28 05:05] LABS: Vancomycin, Trough Level 16.3 ug/mL (5.0-15.0)
[2025-03-28 05:08] LABS: Anion Gap 12 (5-15); BUN 29 mg/dL (4-19); BUN/Creat Ratio 23.1 RATIO (10-20); Calcium,Total 8.8 mg/dL (7.6-11.0); Carbon Dioxide 16.7 mmol/L (21.0-32.0); Chloride 105 mmol/L (98-108); Estimated Creatinine Clearance 37.10 ml/min (50-250); Glucose 149 mg/dL (70-99); Potassium 3.7 mmol/L (3.3-5.1)
--- NOTE | 2025-03-28 05:23 | PCM.RX.CS ---
Consult Antibiotic Management Pharmacy has been consulted to manage selected antibiotic: Vancomycin Type of Intervention Type of Consult: Follow-up Suspected Infection Suspected Infection: Sepsis and Pneumonia Labs Labs: Sodium 134 mmol/L (133-145) 03/28/25 04:20 Potassium 3.7 mmol/L (3.3-5.1) 03/28/25 04:20 Chloride 105 mmol/L (98-108) 03/28/25 04:20 Carbon Dioxide 16.7 mmol/L (21.0-32.0) L 03/28/25 04:20 Anion Gap 12 (5-15) 03/28/25 04:20 BUN 29 mg/dL (4-19) H 03/28/25 04:20 Creatinine 1.24 mg/dL (0.70-1.20) H 03/28/25 04:20 Est GFR (MDRD) Non-Af 43 (>60) L 03/28/25 04:20 BUN/Creatinine Ratio 23.1 RATIO (10-20) H 03/28/25 04:20 Glucose 149 mg/dL (70-99) H 03/28/25 04:20 Vancomycin Trough 16.3 ug/mL (5.0-15.0) H 03/28/25 04:20 Microbiology Microbiology: Microbiology 03/26/25 19:15 Sputum, Expectorated/Coughed Gram Stain - Final 03/26/25 19:15 Sputum, Expectorated/Coughed Respiratory Culture - Preliminary Appears to be normal respiratory roni. Further studies to follow. 03/26/25 08:55 Urine, Clean Catch Urine Culture - Preliminary Gram negative suzanne 03/26/25 07:34 Mucosa - Nasopharyngeal Respiratory Panel (PCR) - Final 03/26/25 09:40 Nasal Secretion MRSA (PCR) - Final 03/26/25 08:55 Urine, Clean Catch Streptococcus pneumoniae Antigen (M - Final 03/26/25 08:55 Urine, Clean Catch Legionella Antigen - Final 03/26/25 04:16 Mucosa - Nose SARS-CoV-2, Influenza & RSV (PCR) - Final Dosing Weight Weight used for dosin kg Estimated Creatinine Clearance Estimated Creatinine Clearance: 37 Goal Trough Goal Trough: 15-20 mcg/mL Pharmacy Plan for Drug Dosing Pharmacy Plan for Drug Dosing: Vancomycin trough level of 16.3, drawn 23.6hrs post-dose, was within the target range of 15-20. Will continue dosing at 1250mg q24h, and will draw another trough level in two days. Pharmacy Service will continue to monitor and adjust dosing as required. Follow-Up Labs Follow-Up Labs: Trough: Vancomycin Date/Time Labs Ordered Labs to be done on [date and time ordered]: 03/30/25 @6083
[2025-03-28] MEDS: Vancomycin HCl 1,250 MG in 0.9% Normal Saline (250mL Bag) 250 ML 167 MG IV (05:33)
--- NOTE | 2025-03-28 05:45 | RAD_ITS ---
PROCEDURE: CHEST 1 VIEW (PORTABLE) 03/28/2025 REASON FOR EXAM: PNEUMONIA TECHNIQUE: Frontal view of the chest. COMPARISON: 03/26/2025 FINDINGS: Progressed bilateral multifocal pneumonic consolidations since the prior study. Mild left and minimal right pleural effusion. Stable cardiac size and aortic calcifications. No acute ribs abnormalities RAD/Chest 1 View (Portable) IMPRESSION: Progressed bilateral multifocal pneumonic consolidations since the prior study. Mild left and minimal right pleural effusion. [facility] [id number]
--- NOTE | 2025-03-28 07:31 | PN.HOSP_ITS ---
Reason for Visit Chief Complaint: Shortness of breath for 4 days progressive worsening Subjective Subjective Significant drop in patient hemoglobin down to 6.9, ordered iron studies in addition to stool for guaiac. An order was given for patient to be transfused with 1 unit PRBCs Objective Data Objective Data Vital Signs: Vital Signs Temp Pulse Resp BP Pulse Ox O2 Del Method O2 Flow Rate 98.2 F 77 23 H 137/68 H 99 Airvo 50 03/28/25 06:20 03/28/25 06:20 03/28/25 06:20 03/28/25 06:20 03/28/25 06:20 03/28/25 06:20 03/28/25 06:20 FiO2 65 03/28/25 06:20 Oxygen Flow Rate (L/min) 50 Oxygen Delivery Method Airvo Weight: 85 kg Body Mass Index (BMI) 30.2 Intake & Output: Intake and Output for Last 24 Hours 03/26/25 03/27/25 03/28/25 23:59 23:59 23:59 Intake Total 1190 / 1190 1445 / 1445 290 / 290 Output Total 250 / 250 Balance 940 / 940 1445 / 1445 290 / 290 Lab / Micro Data 03/28/25 04:20 03/28/25 04:20 Labs: Laboratory Results - last 24 hr 03/28/25 04:20: WBC 19.0 H, RBC 2.43 L, Hgb 6.9 L, Hct 21.7 L, MCV 89.3, MCH 28.4, MCHC 31.8 L, RDW Std Deviation 44.5 H, RDW Coeff of August 13.6, Plt Count 326, MPV 10.4, Immature Gran % (Auto) 2.000 H, Neut % (Auto) 88.2 H, Lymph % (Auto) 5.1 L, [place] % (Auto) 4.4, Eos % (Auto) 0.1, Baso % (Auto) 0.2, Absolute Neuts (auto) 16.8 H, Absolute Lymphs (auto) 0.97, Nucleated RBC % 0, Sodium 134, Potassium 3.7, Chloride 105, Carbon Dioxide 16.7 L, Anion Gap 12, BUN 29 H, C reatinine 1.24 H, Estim Creat Clear Calc 37.10 L, Est GFR (MDRD) Non-Af 43 L, B UN/Creatinine Ratio 23.1 H, Glucose 149 H, Calcium 8.8, Vancomycin Trough 16.3 H Micro: Microbiology 03/26/25 19:15 Sputum, Expectorated/Coughed Gram Stain - Final 03/26/25 19:15 Sputum, Expectorated/Coughed Respiratory Culture - Preliminary Appears to be normal respiratory roni. Further studies to follow. 03/26/25 08:55 Urine, Clean Catch Urine Culture - Preliminary Gram negative suzanne 03/26/25 07:34 Mucosa - Nasopharyngeal Respiratory Panel (PCR) - Final 03/26/25 09:40 Nasal Secretion MRSA (PCR) - Final 03/26/25 08:55 Urine, Clean Catch Streptococcus pneumoniae Antigen (M - Final 03/26/25 08:55 Urine, Clean Catch Legionella Antigen - Final 03/26/25 04:16 Mucosa - Nose SARS-CoV-2, Influenza & RSV (PCR) - Final Radiography Diagnostic Testing: Radiology Impression Chest X-Ray 03/28/25 05:45 IMPRESSION: Progressed bilateral multifocal pneumonic consolidations since the prior study. Mild left and minimal right pleural effusion. Reading Location: [place] [address] Physical Exam Narrative GENERAL: Patient is on on Airvo HEENT: Atraumatic; normocephalic EYES; Anicteric, Normal Conjunctiva NECK; supple, normal thyroid, RESPIRATORY: Diminished to auscultation CARDIOVASCULAR: Regular S1 S2, GI: soft, normoactive bowel sounds, : No Renal angle tenderness; EXTREMITIES: No edema, no clubbing, MUSCULOSKELETAL: no muscle wasting NEURO: Awake; no lateralizing signs. SKIN: No Rash PSYCH; Flat affect Assessment & Plan Assessment/Plan (1) Acute hypoxemic respiratory failure: (2) Multifocal pneumonia: (3) Pulmonary edema: PLAN: Plan Patient is an 84-year-old lady admitted with a 4 to 5-day history of progressive shortness of breath imaging studies obtained on admission demonstrated multifocal pneumonia and interstitial edema. Placed on BiPAP admitted to the intensive care unit for subsequent management 1. Acute hypoxic respiratory failure ? Secondary to combination of multifocal pneumonia and possible CHF. Patient placed on noninvasive ventilation BiPAP admitted to the intensive care unit ? 03/27/2025; patient was weaned off BiPAP and placed on Airvo. Patient was transferred from ICU to PCU ? 03/28/2025; patient still on Airvo. At a rate of 50 L/min with FiO2 of 65% 2. Sepsis secondary to multifocal pneumonia as well as acute cystitis ? Patient admitted to the intensive care unit treatment initiated per protocol, cultures sent patient placed on broad-spectrum antibiotic therapy ? 03/27/2025; patient responded to fluid resuscitation and did not require pressors 3. Acute on chronic congestive heart failure with preserved ejection fraction ? Complicating care given patient presentation presentation. Patient echo from February 2018 demonstrated EF of 65%. Repeat echo ordered for EF assessment ? 03/27/2025; repeat echo obtained on 03/26/2025 did show The left ventricular ejection fraction is 55 %. Normal LV size. The left atrium is mildly enlarged. Mild (1+) eccentric mitral valve insufficiency. Pulmonary artery systolic pressure is 54 mmHg. ? 03/28/2025; adjusted furosemide dose due to worsening kidney function 4. Pneumonia - Suspected to be secondary to gram-positive organism, Blood and sputum cultures sent. Patient placed on R Zosyn and vancomycin and placed on oxygen titrated to keep Pulse Ox greater than 90 5. Acute cystitis ? Will continue with current antibiotic therapy pending culture results 6. Anemia ? Secondary to chronic disorder monitoring H&H and transfuse if patient becomes symptomatic or hemoglobin falls below 7 ? 03/27/2025; significant drop in patient hemoglobin to 7.5. Will repeat H&H in the morning and transfuse if hemoglobin falls below 7 ? 03/28/2025;Significant drop in patient hemoglobin down to 6.9, ordered iron studies in addition to stool for guaiac. An order was given for patient to be transfused with 1 unit PRBCs 7. Hypothyroidism ? Patient is on levothyroxine home dose continued 8. Chronic persistent A-fib ? Patient is on Cardizem held on admission. Patient is on systemic anticoagulation with apixaban, continued 9 Essential hypertension ? Patient antihypertensives held given her presentation 10. Anxiety disorder Prior history 11. Leukocytosis ? Secondary to patient underlying infection as well as patient being on hydrocortisone monitoring with CBC with differential. Patient WBC count trending up. 12. DVT prophylaxis Patient already on apixaban Charges/Coding Visit Charges Inpatient E&M: 74806 Subs Hosp L3
[2025-03-28] MEDS: Piperacil/Tazobactam 3.375 GM in 0.9% Normal Saline (50mL MB+) 50 ML IV ×3 (07:37→21:54)
[2025-03-28 08:33] LABS: Platelet Count 349 K/mm3 (150-450); Reticulocyte Count 3.44 % (0.5-1.5)
[2025-03-28 08:36] LABS: Immature Reticulocyte Fraction 30.40 % (3.00-15.90)
[2025-03-28 09:10] LABS: Ferritin 320 ng/mL (22-378); Iron 29 ug/dL (50-170); Iron Binding Capacity,Unsat 207 ug/dL (228-428); Vitamin B12 374 pg/mL (180-914)
[2025-03-28] MEDS: APIXABAN 5 MG TABLET PO ×2 (09:22→21:46)
[2025-03-28] MEDS: Metoprolol(XL)Succ 25 MG Tablet PO ×2 (09:23→21:45)
[2025-03-28 09:39] LABS: Iron Binding Capacity,Total 236 ug/dL (250-450)
--- NOTE | 2025-03-28 11:33 | PCM.PN.TICU ---
Objective Data Objective Data Vital Signs: Vital Signs Last response Temperature 36.8 C 03/28/25 06:20 Temperature Source Oral 03/28/25 06:20 Pulse Rate 77 03/28/25 09:23 Pulse Strength Normal (2+) 03/28/25 08:23 Respiratory Rate 20 H 03/28/25 07:02 Respiratory Effort Non-Labored, Short of Breath 03/28/25 08:20 Respiratory Depth Shallow 03/28/25 08:20 Respiratory Pattern Tachypnea 03/28/25 08:20 Blood Pressure 137/68 H 03/28/25 06:20 Blood Pressure Mean 91 03/28/25 06:20 Blood Pressure Source Monitor 03/28/25 06:20 Blood Pressure Position Semi-Fowlers 03/28/25 06:20 Blood Pressure Location Left Arm 03/28/25 06:20 Pulse Ox 98 03/28/25 11:15 Oxygen Delivery Method Airvo 03/28/25 08:20 Oxygen Flow Rate (L/min) 25 03/28/25 08:51 Fraction of Inspired Oxygen (FIO2) 63 03/28/25 11:15 I&O: I&O Last 24 Hours 03/27/25 03/27/25 03/28/25 11:59 23:59 11:59 Intake Total 375 / 1445 1070 / 1445 565 / 565 Balance 375 / 1445 1070 / 1445 565 / 565 I&O: Total Stay 03/26/25 03:31 thru 03/28/25 07:12 Intake Total 3200 Output Total 250 Balance 2950 Current Meds Ordered / Administered: Current meds ordered / Administered Generic Name Dose Route Start Last Admin Trade Name Brandoq PRN Reason Stop Dose Admin Acetaminophen 650 mg 03/26/25 06:38 Acetaminophen 325 Mg Tablet PO Q6H PRN PRN Pain 1-10 Or Fever>100.7 Albuterol Sulfate 2.5 mg 03/27/25 10:12 Albuterol 2.5 Mg/3 Ml Vial.Neb. INHALATION Q2H PRN PRN SHORTNESS OF BREATH Albuterol/Ipratropium 3 ml 03/27/25 10:15 03/28/25 07:02 Ipratropium/Albuterol Sulfate 3 Ml Ampul.Neb INHALATION 3 ml Q4H.RT MARIAELENA Administration Apixaban 5 mg 03/26/25 10:00 03/28/25 09:22 Apixaban 5 Mg Tablet PO 5 mg BID MARIAELENA Administration Ferrous Sulfate 325 mg 03/27/25 17:40 03/28/25 11:15 Ferrous Sulfate 325 Mg Tablet PO 325 mg 1200,1700 MARIAELENA Administration Furosemide 40 mg 03/28/25 11:10 Furosemide 40 Mg/4 Ml Vial IV BIDLX MARIAELENA Protocol Guaifenesin 1,200 mg 03/27/25 10:15 03/28/25 09:22 Guaifenesin 1,200 Mg Tablet PO 1,200 mg BID MARIAELENA Administration Hydrocortisone Sodium Succinate 50 mg 03/26/25 12:00 03/28/25 11:15 Hydrocortisone Sod Succinate 100 Mg/2 Ml Vial IV 50 mg Q6 MARIAELENA Administration Piperacillin Sod/Tazobactam 50 mls @ 12.5 mls/hr 03/26/25 14:00 03/28/25 07:37 Sod 3.375 gm/ Sodium Chloride IV 12.5 mls/hr Q8 MARIAELENA Administration Vancomycin IV-PHARMACY TO DOSE 500 mls @ 250 mls/hr 03/26/25 10:00 1 each/ Sodium Chloride IV DAILY PRN RX TO DOSE Protocol Sodium Chloride 250 mls @ 15 mls/hr 03/26/25 06:39 IV .[id number] PRN Saline Flush Sodium Chloride 250 mls @ 15 mls/hr 03/26/25 06:39 IV .[id number] PRN Additional IVPB Infusion Vancomycin HCl 1,250 mg/ 275 mls @ 167 mls/hr 03/27/25 05:00 03/28/25 07:12 Sodium Chloride IV Infused Q24H MARIAELENA Infusion Levothyroxine Sodium 25 mcg 03/27/25 06:00 03/28/25 05:04 Levothyroxine 25 Mcg Tablet PO 25 mcg DAILY@0600 MARIAELENA Administration Metoprolol Succinate 25 mg 03/26/25 10:00 03/28/25 09:23 Metoprolol(Xl)Succ 25 Mg Tablet PO 25 mg BID MARIAELENA Administration Protocol Nitroglycerin 0.4 mg 03/26/25 06:38 Nitroglycerin (Inpatient Use) 0.4 Mg Tab.Subl SL Q5M PRN CARDIAC/CHEST PAIN Oxycodone HCl 2.5 - 5 mg 03/26/25 06:38 03/27/25 21:59 Oxycodone 5 Mg Tablet PO 2.5 mg Q4H PRN PRN Administration Pain Score 4-10 Senna/Docusate Sodium 2 tablet 03/26/25 06:38 Senna/Docusate Sodium 1 Tablet PO BID PRN PRN Constipation Sodium Chloride 10 - 40 ml 03/26/25 06:39 03/28/25 11:15 0.9% Saline Lock 10 Ml Syringe IV 10 ml UD PRN Administration SALINE FLUSH Vancomycin Protocol 1 lab 03/30/25 03:30 Vancomycin Trough/Random Due MC 03/30/25 05:30 DAILY [facility] Lab / Micro Data 03/28/25 04:20 03/28/25 04:20 Labs: Laboratory Results - last 24 hr 03/28/25 04:20: WBC 19.0 H, RBC 2.43 L, Hgb 6.9 L, Hct 21.7 L, MCV 89.3, MCH 28.4, MCHC 31.8 L, RDW Std Deviation 44.5 H, RDW Coeff of August 13.6, Plt Count 326, MPV 10.4, Immature Gran % (Auto) 2.000 H, Neut % (Auto) 88.2 H, Lymph % (Auto) 5.1 L, Dunn % (Auto) 4.4, Eos % (Auto) 0.1, Baso % (Auto) 0.2, Absolute Neuts (auto) 16.8 H, Absolute Lymphs (auto) 0.97, Nucleated RBC % 0, Sodium 134, Potassium 3.7, Chloride 105, Carbon Dioxide 16.7 L, Anion Gap 12, BUN 29 H, Creatinine 1.24 H, Estim Creat Clear Calc 37.10 L, Est GFR (MDRD) Non-Af 43 L, BUN/Creatinine Ratio 23.1 H, Glucose 149 H, Calcium 8.8, Vancomycin Trough 16.3 H 03/28/25 08:24: Retic Count 3.44 H, Immature Retic Fraction 30.40 H, Retic Hgb Equivalent 26.4 L, Iron 29 L, TIBC 236 L, Iron Saturation 12.3 L, Unsaturated IBC 207 L, Ferritin 320, Vitamin B12 374, Blood Type O POSITIVE, Antibody Screen NEGATIVE, Crossmatch See Detail Micro: Microbiology 03/26/25 03:39 Blood Culture (Wb) - Anticubital Left Blood Culture - Preliminary No growth in 48 hours. 03/26/25 03:39 Blood Culture (Wb) - Anticubital Right Blood Culture - Preliminary No growth in 48 hours. 03/26/25 08:55 Urine, Clean Catch Urine Culture - Final Morganella morganii sp morgani 03/26/25 19:15 Sputum, Expectorated/Coughed Gram Stain - Final 03/26/25 19:15 Sputum, Expectorated/Coughed Respiratory Culture - Preliminary Appears to be normal respiratory roni. Further studies to follow. Imaging Radiology Impression Chest X-Ray 03/28/25 05:45 IMPRESSION: Progressed bilateral multifocal pneumonic consolidations since the prior study. Mild left and minimal right pleural effusion. Reading Location: [place] [address] Assessment and Plan . Assessment and plan: A/P: 1. Resp Failure: Acute/hypoxemic. On HHFNC at 62%. BIPAP as needed. 2. CAP: Subacute sxs. Failed outpt management--> augmentin/azithro. Viral studies/legionella/strep:-. On Vanc/zosyn. Repeat CXR stable 3. Anemia: Some decrease in H/H. s/p one unit today. 4. Metabolic Acidosis: Serum HCO3 stable. Add oral bicarb tabs 5. FEN: oral diet 6. Px: chemical(on AC) Critical Care Time: 50 minutes The entirety of this encounter was done via Telemedicine Physical Exam Narrative awake, NAD talking in complete sentences symmetric chest expansion, Coarse BS RRR, no m/r/g Abd :soft, obese, nt No c/e/c Skin: no rashes Subjective Subjective feeling better
[2025-03-29] VITALS (21 sets, daily range): BP systolic 107–146; BP diastolic 51–75; PULSE 75–95; RESP 18–25; TEMP 36.3–36.9; O2SAT 92–98; BMI 30.7
[2025-03-29] MEDS: 0.9% Saline Lock 10 ML Syringe IV ×5 (00:43→17:46)
[2025-03-29] MEDS: Vancomycin HCl 1,250 MG in 0.9% Normal Saline (250mL Bag) 250 ML 167 MG IV (04:30)
[2025-03-29] MEDS: Piperacil/Tazobactam 3.375 GM in 0.9% Normal Saline (50mL MB+) 50 ML IV ×3 (06:44→21:40)
[2025-03-29 07:03] LABS: Hematocrit 25.7 % (37-47); Hemoglobin 8.5 g/dL (12.0-15.0); Immature Granulocytes Count 0.650 X10^3/uL (0.0-0.0); Mean Corp Hgb Conc 33.1 g/dL (32-36); Mean Corpuscular Volume 86.5 fL (81-99); Mean Platelet Vol. 9.7 fl (6.2-12.0); NRBC Flagged by Analyzer 0 % (0-5); Platelet Count 344 K/mm3 (150-450); RBC Distribution Width CV 14.6 % (11.6-14.6); RBC Distribution Width SD 46.1 fl (35.1-43.9); Red Blood Count 2.97 M/mm3 (4.2-5.4); White Blood Count 15.6 K/mm3 (4.4-11.0)
[2025-03-29 07:34] LABS: Anion Gap 14 (5-15); BUN 27 mg/dL (4-19); BUN/Creat Ratio 21.4 RATIO (10-20); Calcium,Total 8.6 mg/dL (7.6-11.0); Carbon Dioxide 20.2 mmol/L (21.0-32.0); Chloride 107 mmol/L (98-108); Estimated Creatinine Clearance 37.10 ml/min (50-250); Glucose 129 mg/dL (70-99); Potassium 2.6 mmol/L (3.3-5.1)
[2025-03-29] MEDS: Metoprolol(XL)Succ 25 MG Tablet PO ×2 (08:16→21:42)
[2025-03-29] MEDS: APIXABAN 5 MG TABLET PO ×2 (08:17→21:41)
--- NOTE | 2025-03-29 08:49 | PN.HOSP_ITS ---
Reason for Visit Chief Complaint: Shortness of breath for 4 days progressive worsening Subjective Subjective Breathing better. Weaned down to 4 liters NC. Objective Data Objective Data Vital Signs: Vital Signs Temp Pulse Resp BP Pulse Ox O2 Del Method O2 Flow Rate 36.6 C 89 18 141/75 H 93 Airvo 50 03/29/25 07:54 03/29/25 08:16 03/29/25 07:54 03/29/25 07:54 03/29/25 07:54 03/29/25 08:21 03/29/25 06:59 FiO2 45 03/29/25 06:59 Oxygen Flow Rate (L/min) 50 Oxygen Delivery Method Airvo Weight: 86.4 kg Body Mass Index (BMI) 30.7 Intake & Output: Intake and Output for Last 24 Hours 03/27/25 03/28/25 03/29/25 23:59 23:59 23:59 Intake Total 1445 / 1445 2405 / 2405 325 / 325 Output Total 350 / 350 750 / 750 Balance 1445 / 1445 2055 / 2055 -425 / -425 Lab / Micro Data 03/29/25 06:46 03/29/25 06:46 Labs: Laboratory Results - last 24 hr 03/28/25 08:24: Iron 29 L, TIBC 236 L, Iron Saturation 12.3 L, Unsaturated IBC 207 L, Ferritin 320, Vitamin B12 374, Blood Type O POSITIVE, Antibody Screen NEGATIVE, Crossmatch See Detail 03/29/25 06:46: WBC 15.6 H, RBC 2.97 L, Hgb 8.5 L, Hct 25.7 L, MCV 86.5, MCH 28.6, MCHC 33.1, RDW Std Deviation 46.1 H, RDW Coeff of August 14.6, Plt Count 344, MPV 9.7, Immature Gran % (Auto) 4.200 H, Neut % (Auto) 82.0 H, Lymph % (Auto) 7.4 L, [place] % (Auto) 5.6, Eos % (Auto) 0.4, Baso % (Auto) 0.4, Absolute Neuts (auto) 12.8 H, Absolute Lymphs (auto) 1.15, Nucleated RBC % 0, Sodium 141, P otassium 2.6 L*, Chloride 107, Carbon Dioxide 20.2 L, Anion Gap 14, BUN 27 H, C reatinine 1.25 H, Estim Creat Clear Calc 37.10 L, Est GFR (MDRD) Non-Af 43 L, B UN/Creatinine Ratio 21.4 H, Glucose 129 H, Calcium 8.6 Micro: Microbiology 03/26/25 19:15 Sputum, Expectorated/Coughed Gram Stain - Final 03/26/25 19:15 Sputum, Expectorated/Coughed Respiratory Culture - Final Mixed normal respiratory roni. No Streptococcus pneumoniae, beta-hemolytic Streptococcus or Staphylococcus aureus isolated. 03/26/25 03:39 Blood Culture (Wb) - Anticubital Left Blood Culture - Preliminary No growth in 48 hours. 03/26/25 03:39 Blood Culture (Wb) - Anticubital Right Blood Culture - Preliminary No growth in 48 hours. 03/26/25 08:55 Urine, Clean Catch Urine Culture - Final Morganella morganii sp morgani 03/26/25 07:34 Mucosa - Nasopharyngeal Respiratory Panel (PCR) - Final 03/26/25 09:40 Nasal Secretion MRSA (PCR) - Final 03/26/25 08:55 Urine, Clean Catch Streptococcus pneumoniae Antigen (M - Final 03/26/25 08:55 Urine, Clean Catch Legionella Antigen - Final 03/26/25 04:16 Mucosa - Nose SARS-CoV-2, Influenza & RSV (PCR) - Final Physical Exam Const Constitutional Narrative: up in chair. no respiratory distress. HEENT head/scalp atraumatic and moist oral mucous membranes Resp normal respiratory effort, no retractions, no use of accessory muscles and clear to auscultation bilaterally Cardio regular rate, regular rhythm and S1 normal heart sound GI normal to inspection, nondistended, normoactive bowel sounds, soft to palpation, non-tender and non-distended Extremity normal to inspection, full ROM and no clubbing, cyanosis or edema Neuro Sensorium / Orientation: awake, alert, oriented to person and oriented to place Psych affect normal Assessment & Plan Assessment/Plan (1) Acute hypoxemic respiratory failure: (2) Multifocal pneumonia: (3) Pulmonary edema: PLAN: Plan Acute hypoxic respiratory failure * Improving. Secondary to combination of multifocal pneumonia. Patient placed on noninvasive ventilation BiPAP admitted to the intensive care unit * 03/27/2025; patient was weaned off BiPAP and placed on Airvo. Patient was transferred from ICU to PCU * 03/28/2025; patient still on Airvo. At a rate of 50 L/min with FiO2 of 65% * on furosemide challenge * SCx pending, COVID/influenza/RSV negative. Resp panel negative. Sepsis * secondary to multifocal pneumonia. UTI ruled out (low CFUs) * Patient admitted to the intensive care unit treatment initiated per protocol, cultures sent patient placed on broad-spectrum antibiotic therapy * 03/27/2025; patient responded to fluid resuscitation and did not require pressors Suspected gram negative pneumonia * on pip/tazo and vancomycin * CCM following Anemia * Transfused 1 unit PRBCs * monitor Hypokalemia * replace * check magnesium Chronic conditions: * Hypothyroidism? Patient is on levothyroxine home dose continued * Chronic persistent A-fib? Patient is on Cardizem held on admission. Patient is on systemic anticoagulation with apixaban, continued * Essential hypertension? Patient antihypertensives held given her presentation * Anxiety disorder DVT prophylaxis Patient already on apixaban DW family at bedside. Charges/Coding Visit Charges Inpatient E&M: 58429 Subs Hosp L2
[2025-03-29 09:43] LABS: Magnesium 2.0 mg/dL (1.5-2.2)
[2025-03-29] MEDS: Potassium Chloride Oral Tablet 20 MEQ 60 MEQ PO (10:02)
--- NOTE | 2025-03-29 10:26 | CASEMGMT ---
Social Work [facility] can accept the patient. SOC will be determined once DC date is established. Plan: will call Kathi with [facility] with the DC date. TITO Prado
--- NOTE | 2025-03-29 13:33 | PCM.RX.CS ---
Consult Antibiotic Management Pharmacy has been consulted to manage selected antibiotic: Vancomycin Type of Intervention Type of Consult: Follow-up Suspected Infection Suspected Infection: Sepsis Prior Doses of Antibiotics Prior Doses of Antibiotics Received/Current Regimen: Vancomycin 1250mg every 24 hours. 03/28/25 @ 0533 03/29/25 @ 0433 Labs Labs: Sodium 141 mmol/L (133-145) 03/29/25 06:46 Potassium 2.6 mmol/L (3.3-5.1) L* 03/29/25 06:46 Chloride 107 mmol/L (98-108) 03/29/25 06:46 Carbon Dioxide 20.2 mmol/L (21.0-32.0) L 03/29/25 06:46 Anion Gap 14 (5-15) 03/29/25 06:46 BUN 27 mg/dL (4-19) H 03/29/25 06:46 Creatinine 1.25 mg/dL (0.70-1.20) H 03/29/25 06:46 Est GFR (MDRD) Non-Af 43 (>60) L 03/29/25 06:46 BUN/Creatinine Ratio 21.4 RATIO (10-20) H 03/29/25 06:46 Glucose 129 mg/dL (70-99) H 03/29/25 06:46 Vancomycin Trough 16.3 ug/mL (5.0-15.0) H 03/28/25 04:20 Microbiology Microbiology: Microbiology 03/29/25 11:17 Stool Stool Occult Blood (HAWA) - Final Occult Blood Positive 03/26/25 19:15 Sputum, Expectorated/Coughed Gram Stain - Final 03/26/25 19:15 Sputum, Expectorated/Coughed Respiratory Culture - Final Mixed normal respiratory roni. No Streptococcus pneumoniae, beta-hemolytic Streptococcus or Staphylococcus aureus isolated. 03/26/25 03:39 Blood Culture (Wb) - Anticubital Left Blood Culture - Preliminary No growth in 48 hours. 03/26/25 03:39 Blood Culture (Wb) - Anticubital Right Blood Culture - Preliminary No growth in 48 hours. 03/26/25 08:55 Urine, Clean Catch Urine Culture - Final Morganella morganii sp morgani 03/26/25 07:34 Mucosa - Nasopharyngeal Respiratory Panel (PCR) - Final 03/26/25 09:40 Nasal Secretion MRSA (PCR) - Final 03/26/25 08:55 Urine, Clean Catch Streptococcus pneumoniae Antigen (M - Final 03/26/25 08:55 Urine, Clean Catch Legionella Antigen - Final 03/26/25 04:16 Mucosa - Nose SARS-CoV-2, Influenza & RSV (PCR) - Final Dosing Weight Weight used for dosin kg Estimated Creatinine Clearance Estimated Creatinine Clearance: 37 Goal Trough Goal Trough: 15-20 mcg/mL Pharmacy Plan for Drug Dosing Pharmacy Plan for Drug Dosing: Vancomycin 1250mg every 24 hours Pharmacy Service will continue to monitor and adjust dosing as required. Follow-Up Labs Follow-Up Labs: Trough: Vancomycin Date/Time Labs Ordered Labs to be done on [date and time ordered]: 03/30/25 @ 0431
[2025-03-30] VITALS (17 sets, daily range): BP systolic 139–165; BP diastolic 53–80; PULSE 79–111; RESP 16–24; TEMP 36.2–36.6; O2SAT 84–99; BMI 31.1
[2025-03-30] MEDS: Vancomycin Trough/Random Due 1 LAB MC (04:04)
[2025-03-30 04:43] LABS: Hematocrit 26.7 % (37-47); Hemoglobin 8.8 g/dL (12.0-15.0); Mean Corp Hgb Conc 33.0 g/dL (32-36); Mean Corpuscular Volume 85.0 fL (81-99); Mean Platelet Vol. 9.7 fl (6.2-12.0); POSITIVE COUNT YES; POSITIVE MORPHOLOGY YES; Platelet Count 385 K/mm3 (150-450); RBC Distribution Width CV 14.9 % (11.6-14.6); RBC Distribution Width SD 45.6 fl (35.1-43.9); Red Blood Count 3.14 M/mm3 (4.2-5.4); White Blood Count 18.3 K/mm3 (4.4-11.0)
[2025-03-30 05:02] LABS: Differential Indicated MANUAL DIFF
[2025-03-30 05:05] LABS: Vancomycin, Trough Level 20.1 ug/mL (5.0-15.0)
[2025-03-30 05:06] LABS: Anion Gap 18 (5-15); BUN 24 mg/dL (4-19); BUN/Creat Ratio 21.7 RATIO (10-20); Calcium,Total 8.5 mg/dL (7.6-11.0); Carbon Dioxide 21.0 mmol/L (21.0-32.0); Chloride 104 mmol/L (98-108); Estimated Creatinine Clearance 41.78 ml/min (50-250); Glucose 147 mg/dL (70-99); Potassium 2.2 mmol/L (3.3-5.1)
--- NOTE | 2025-03-30 05:11 | PCM.RX.CS ---
Consult Antibiotic Management Pharmacy has been consulted to manage selected antibiotic: Vancomycin Type of Intervention Type of Consult: Follow-up Suspected Infection Suspected Infection: Sepsis and Pneumonia Labs Labs: Sodium 143 mmol/L (133-145) 03/30/25 04:28 Potassium 2.2 mmol/L (3.3-5.1) L* 03/30/25 04:28 Chloride 104 mmol/L (98-108) 03/30/25 04:28 Carbon Dioxide 21.0 mmol/L (21.0-32.0) 03/30/25 04:28 Anion Gap 18 (5-15) H 03/30/25 04:28 BUN 24 mg/dL (4-19) H 03/30/25 04:28 Creatinine 1.11 mg/dL (0.70-1.20) 03/30/25 04:28 Est GFR (MDRD) Non-Af 49 (>60) L 03/30/25 04:28 BUN/Creatinine Ratio 21.7 RATIO (10-20) H 03/30/25 04:28 Glucose 147 mg/dL (70-99) H 03/30/25 04:28 Vancomycin Trough 20.1 ug/mL (5.0-15.0) H 03/30/25 04:28 Microbiology Microbiology: Microbiology 03/29/25 11:17 Stool Stool Occult Blood (HAWA) - Final Occult Blood Positive 03/26/25 19:15 Sputum, Expectorated/Coughed Gram Stain - Final 03/26/25 19:15 Sputum, Expectorated/Coughed Respiratory Culture - Final Mixed normal respiratory roni. No Streptococcus pneumoniae, beta-hemolytic Streptococcus or Staphylococcus aureus isolated. 03/26/25 03:39 Blood Culture (Wb) - Anticubital Left Blood Culture - Preliminary No growth in 48 hours. 03/26/25 03:39 Blood Culture (Wb) - Anticubital Right Blood Culture - Preliminary No growth in 48 hours. 03/26/25 08:55 Urine, Clean Catch Urine Culture - Final Morganella morganii sp morgani 03/26/25 07:34 Mucosa - Nasopharyngeal Respiratory Panel (PCR) - Final 03/26/25 09:40 Nasal Secretion MRSA (PCR) - Final 03/26/25 08:55 Urine, Clean Catch Streptococcus pneumoniae Antigen (M - Final 03/26/25 08:55 Urine, Clean Catch Legionella Antigen - Final 03/26/25 04:16 Mucosa - Nose SARS-CoV-2, Influenza & RSV (PCR) - Final Dosing Weight Weight used for dosin.4 kg Estimated Creatinine Clearance Estimated Creatinine Clearance: 42 Goal Trough Goal Trough: 15-20 mcg/mL Pharmacy Plan for Drug Dosing Pharmacy Plan for Drug Dosing: Vancomycin trough level of 20.1, drawn 24hrs post-dose, was right at the top of the 15-20 target range. Considering improving renal function (SCr now 1.11), will continue dosing at 1250mg q24h. Will draw another trough level in two days to monitor. Pharmacy Service will continue to monitor and adjust dosing as required. Follow-Up Labs Follow-Up Labs: Trough: Vancomycin Date/Time Labs Ordered Labs to be done on [date and time ordered]: 04/01/25 @0439
[2025-03-30] MEDS: 0.9% Normal Saline (250mL Bag) 250 ML 15 ML IV (05:18)
[2025-03-30] MEDS: Vancomycin HCl 1,250 MG in 0.9% Normal Saline (250mL Bag) 250 ML 167 MG IV (05:18)
[2025-03-30 05:42] LABS: Neutrophil-Band 1 % (0-5); Neutrophil-Segmented 84 % (47-70)
[2025-03-30] MEDS: Potassium Chloride Oral Tablet 20 MEQ 40 MEQ PO (05:46)
[2025-03-30] MEDS: Potassium Chloride 10mEq/100mL 10 MEQ/100 ML IV.SOLN. 100 MEQ IV BOLUS ×4 (05:47→09:38)
[2025-03-30 07:12] LABS: Magnesium 1.8 mg/dL (1.5-2.2)
[2025-03-30] MEDS: Piperacil/Tazobactam 3.375 GM in 0.9% Normal Saline (50mL MB+) 50 ML IV ×3 (08:06→21:27)
--- NOTE | 2025-03-30 08:52 | PN.HOSP_ITS ---
Reason for Visit Chief Complaint: Shortness of breath for 4 days progressive worsening Objective Data Objective Data Vital Signs: Vital Signs Temp Pulse Resp BP Pulse Ox O2 Del Method O2 Flow Rate 36.2 C L 81 16 149/62 H 99 Nasal Cannula 2 03/30/25 03:20 03/30/25 07:06 03/30/25 07:06 03/30/25 03:20 03/30/25 07:06 03/30/25 08:20 03/30/25 08:20 FiO2 45 03/29/25 09:00 Oxygen Flow Rate (L/min) 2 Oxygen Delivery Method Nasal Cannula Weight: 87.6 kg Body Mass Index (BMI) 31.1 Intake & Output: Intake and Output for Last 24 Hours 03/28/25 03/29/25 03/30/25 23:59 23:59 23:59 Intake Total 2405 / 2405 1575 / 2175 1120 / 1120 Output Total 350 / 350 1050 / 1050 Balance 2055 / 2055 525 / 1125 1120 / 1120 Lab / Micro Data 03/30/25 04:28 03/30/25 04:28 Labs: Laboratory Results - last 24 hr 03/29/25 06:46: Magnesium 2.0 03/30/25 04:28: WBC 18.3 H, RBC 3.14 L, Hgb 8.8 L, Hct 26.7 L, MCV 85.0, MCH 28.0, MCHC 33.0, RDW Std Deviation 45.6 H, RDW Coeff of August 14.9 H, Plt Count 385, MPV 9.7, Neut % (Auto) Not Reportable, Absolute Neuts (auto) 15.5 H, Absolute Lymphs (auto) 1.28, Neutrophils % (Manual) 84 H, Band Neutrophils % 1, Lymphocytes % (Manual) 7 L, Monocytes % (Manual) 5, Metamyelocytes % 2 H, M yelocytes % 1 H, Diff Path Review August, Sodium 143, Potassium 2.2 L*, Chloride 104, Carbon Dioxide 21.0, Anion Gap 18 H, BUN 24 H, Creatinine 1.11, E stim Creat Clear Calc 41.78 L, Est GFR (MDRD) Non-Af 49 L, BUN/Creatinine Ratio 21.7 H, Glucose 147 H, Calcium 8.5, Phosphorus 2.2 L, Magnesium 1.8, Vancomycin Trough 20.1 H Micro: Microbiology 03/29/25 11:17 Stool Stool Occult Blood (HAWA) - Final Occult Blood Positive 03/26/25 19:15 Sputum, Expectorated/Coughed Gram Stain - Final 03/26/25 19:15 Sputum, Expectorated/Coughed Respiratory Culture - Final Mixed normal respiratory roni. No Streptococcus pneumoniae, beta-hemolytic Streptococcus or Staphylococcus aureus isolated. 03/26/25 03:39 Blood Culture (Wb) - Anticubital Left Blood Culture - Preliminary No growth in 48 hours. 03/26/25 03:39 Blood Culture (Wb) - Anticubital Right Blood Culture - Preliminary No growth in 48 hours. 03/26/25 08:55 Urine, Clean Catch Urine Culture - Final Morganella morganii sp morgani 03/26/25 07:34 Mucosa - Nasopharyngeal Respiratory Panel (PCR) - Final 03/26/25 09:40 Nasal Secretion MRSA (PCR) - Final 03/26/25 08:55 Urine, Clean Catch Streptococcus pneumoniae Antigen (M - Final 03/26/25 08:55 Urine, Clean Catch Legionella Antigen - Final 03/26/25 04:16 Mucosa - Nose SARS-CoV-2, Influenza & RSV (PCR) - Final Assessment & Plan Assessment/Plan (1) Acute hypoxemic respiratory failure: (2) Multifocal pneumonia: (3) Pulmonary edema: PLAN: Plan Acute hypoxic respiratory failure * Improving. Secondary to combination of multifocal pneumonia. Patient placed on noninvasive ventilation BiPAP admitted to the intensive care unit * 03/27/2025; patient was weaned off BiPAP and placed on Airvo. Patient was transferred from ICU to PCU * 03/28/2025; patient still on Airvo. At a rate of 50 L/min with FiO2 of 65% * on furosemide challenge * SCx pending, COVID/influenza/RSV negative. Resp panel negative. * check home oxygen Sepsis * secondary to multifocal pneumonia. UTI ruled out (low CFUs) * Patient admitted to the intensive care unit treatment initiated per protocol, cultures sent patient placed on broad-spectrum antibiotic therapy * 03/27/2025; patient responded to fluid resuscitation and did not require pressors Suspected gram negative pneumonia * on pip/tazo and vancomycin * CCM following Anemia * Transfused 1 unit PRBCs * monitor Hypokalemia * replace Chronic conditions: * Hypothyroidism? Patient is on levothyroxine home dose continued * Chronic persistent A-fib? Patient is on Cardizem held on admission. Patient is on systemic anticoagulation with apixaban, continued * Essential hypertension? Patient antihypertensives held given her presentation * Anxiety disorder DVT prophylaxis Patient already on apixaban
--- NOTE | 2025-03-30 08:52 | PCM.PN.HOSP ---
Reason for Visit Chief Complaint: Shortness of breath for 4 days progressive worsening Subjective Subjective Had confusion last night as well as this morning. This morning there were aliens and smoke [place] other things that she was seeing. At present she is appropriate. Family has noticed some things at home but nothing this severe. Did note that the patient was very panicked this morning as well. Objective Data Objective Data Vital Signs: Vital Signs Temp Pulse Resp BP Pulse Ox O2 Del Method O2 Flow Rate 36.2 C L 81 16 149/62 H 99 Nasal Cannula 2 03/30/25 03:20 03/30/25 07:06 03/30/25 07:06 03/30/25 03:20 03/30/25 07:06 03/30/25 08:20 03/30/25 08:20 FiO2 45 03/29/25 09:00 Oxygen Flow Rate (L/min) 2 Oxygen Delivery Method Nasal Cannula Weight: 87.6 kg Body Mass Index (BMI) 31.1 Intake & Output: Intake and Output for Last 24 Hours 03/28/25 03/29/25 03/30/25 23:59 23:59 23:59 Intake Total 2405 / 2405 1575 / 2175 1120 / 1120 Output Total 350 / 350 1050 / 1050 Balance 2055 / 2055 525 / 1125 1120 / 1120 Lab / Micro Data 03/30/25 04:28 03/30/25 10:02 Labs: Laboratory Results - last 24 hr 03/29/25 06:46: Magnesium 2.0 03/30/25 04:28: WBC 18.3 H, RBC 3.14 L, Hgb 8.8 L, Hct 26.7 L, MCV 85.0, MCH 28.0, MCHC 33.0, RDW Std Deviation 45.6 H, RDW Coeff of August 14.9 H, Plt Count 385, MPV 9.7, Neut % (Auto) Not Reportable, Absolute Neuts (auto) 15.5 H, Absolute Lymphs (auto) 1.28, Neutrophils % (Manual) 84 H, Band Neutrophils % 1, Lymphocytes % (Manual) 7 L, Monocytes % (Manual) 5, Metamyelocytes % 2 H, Myelocytes % 1 H, Diff Path Review May , Sodium 143, Potassium 2.2 L*, Chloride 104, Carbon Dioxide 21.0, Anion Gap 18 H, BUN 24 H, Creatinine 1.11, Estim Creat Clear Calc 41.78 L, Est GFR (MDRD) Non-Af 49 L, BUN/Creatinine Ratio 21.7 H, Glucose 147 H, Calcium 8.5, Phosphorus 2.2 L, Magnesium 1.8, Vancomycin Trough 20.1 H Micro: Microbiology 03/29/25 11:17 Stool Stool Occult Blood (HAWA) - Final Occult Blood Positive 03/26/25 19:15 Sputum, Expectorated/Coughed Gram Stain - Final 03/26/25 19:15 Sputum, Expectorated/Coughed Respiratory Culture - Final Mixed normal respiratory roni. No Streptococcus pneumoniae, beta-hemolytic Streptococcus or Staphylococcus aureus isolated. 03/26/25 03:39 Blood Culture (Wb) - Anticubital Left Blood Culture - Preliminary No growth in 48 hours. 03/26/25 03:39 Blood Culture (Wb) - Anticubital Right Blood Culture - Preliminary No growth in 48 hours. 03/26/25 08:55 Urine, Clean Catch Urine Culture - Final Morganella morganii sp morgani 03/26/25 07:34 Mucosa - Nasopharyngeal Respiratory Panel (PCR) - Final 03/26/25 09:40 Nasal Secretion MRSA (PCR) - Final 03/26/25 08:55 Urine, Clean Catch Streptococcus pneumoniae Antigen (M - Final 03/26/25 08:55 Urine, Clean Catch Legionella Antigen - Final 03/26/25 04:16 Mucosa - Nose SARS-CoV-2, Influenza & RSV (PCR) - Final Physical Exam Const alert and no apparent distress Constitutional Narrative: Up in chair. No respiratory stress. No conversational dyspnea. HEENT head/scalp atraumatic and moist oral mucous membranes Resp Resp Narrative: Diminished throughout but otherwise clear. Cardio regular rate, regular rhythm, S1 normal heart sound and S2 normal heart sound GI normal to inspection, nondistended, normoactive bowel sounds, soft to palpation, non-tender and non-distended Extremity full ROM; Negative for normal to inspection Psych affect normal Assessment & Plan Assessment/Plan (1) Acute hypoxemic respiratory failure: (2) Multifocal pneumonia: (3) Pulmonary edema: PLAN: Plan Acute hypoxic respiratory failure Improving. Secondary to combination of multifocal pneumonia. Patient placed on noninvasive ventilation BiPAP admitted to the intensive care unit 03/27/2025; patient was weaned off BiPAP and placed on Airvo. Patient was transferred from ICU to PCU 03/28/2025; patient still on Airvo. At a rate of 50 L/min with FiO2 of 65% on furosemide challenge SCx pending, COVID/influenza/RSV negative. Resp panel negative. check home oxygen Sepsis secondary to multifocal pneumonia. UTI ruled out (low CFUs) Patient admitted to the intensive care unit treatment initiated per protocol, cultures sent patient placed on broad-spectrum antibiotic therapy 03/27/2025; patient responded to fluid resuscitation and did not require pressors Suspected gram negative pneumonia on pip/tazo and vancomycin CCM following Anemia Transfused 1 unit PRBCs monitor Hypokalemia replace Hallucinations/panic attacks Given description at the family's explaining at home and what she is experiencing here is concerned the patient may have underlying dementia or mild cognitive impairment. Will start her on quetiapine while she is here at night and I do recommend that she follow-up with geriatrics or neurology to have a formal dementia evaluation. Chronic conditions: Hypothyroidism? Patient is on levothyroxine home dose continued Chronic persistent A-fib? Patient is on Cardizem held on admission. Patient is on systemic anticoagulation with apixaban, continued Essential hypertension? Patient antihypertensives held given her presentation Anxiety disorder DVT prophylaxis Patient already on apixaban Disposition: To be determined. She like to see some further improvement of her oxygenation but hopefully discharged in when she more days. Charges/Coding Visit Charges Inpatient E&M: 31884 Subs Hosp L2
[2025-03-30] MEDS: APIXABAN 5 MG TABLET PO ×2 (09:43→21:10)
[2025-03-30] MEDS: Metoprolol(XL)Succ 25 MG Tablet PO ×2 (09:43→21:10)
[2025-03-30] MEDS: 0.9% Saline Lock 10 ML Syringe IV ×2 (10:55→17:38)
[2025-03-30 10:58] LABS: Potassium 2.5 mmol/L (3.3-5.1)
--- NOTE | 2025-03-30 11:11 | CASEMGMT ---
Social Work SW informed the patient and her that [facility] will 04/01/25. TITO Prado
[2025-03-30 14:04] LABS: Potassium 2.6 mmol/L (3.3-5.1)
[2025-03-30 15:08] LABS: Mycoplasma pneum. AB IgM < 770 U/mL (0-769)
[2025-03-30] MEDS: Potassium Chloride Oral Tablet 20 MEQ 60 MEQ PO (17:52)
[2025-03-31] VITALS (18 sets, daily range): BP systolic 105–157; BP diastolic 62–82; PULSE 84–106; RESP 18–24; TEMP 36.5–37; O2SAT 84–97; BMI 30.1
[2025-03-31] MEDS: Vancomycin HCl 1,250 MG in 0.9% Normal Saline (250mL Bag) 250 ML 167 MG IV (04:32)
[2025-03-31 05:57] LABS: Hematocrit 26.8 % (37-47); Hemoglobin 8.6 g/dL (12.0-15.0); Mean Corp Hgb Conc 32.1 g/dL (32-36); Mean Corpuscular Volume 87.0 fL (81-99); Mean Platelet Vol. 9.7 fl (6.2-12.0); POSITIVE COUNT YES; POSITIVE MORPHOLOGY YES; Platelet Count 380 K/mm3 (150-450); RBC Distribution Width CV 15.2 % (11.6-14.6); RBC Distribution Width SD 47.6 fl (35.1-43.9); Red Blood Count 3.08 M/mm3 (4.2-5.4); White Blood Count 15.4 K/mm3 (4.4-11.0)
[2025-03-31 06:34] LABS: Anion Gap 16 (5-15); BUN 22 mg/dL (4-19); BUN/Creat Ratio 19.9 RATIO (10-20); Calcium,Total 8.5 mg/dL (7.6-11.0); Carbon Dioxide 23.6 mmol/L (21.0-32.0); Chloride 104 mmol/L (98-108); Estimated Creatinine Clearance 41.00 ml/min (50-250); Glucose 149 mg/dL (70-99); Potassium 2.7 mmol/L (3.3-5.1)
[2025-03-31] MEDS: Piperacil/Tazobactam 3.375 GM in 0.9% Normal Saline (50mL MB+) 50 ML IV ×3 (06:39→22:10)
--- NOTE | 2025-03-31 06:43 | PCM.HOSP.N ---
Hospitalist Note Potassium 2.7, supplementation ordered with repeat lab today and also mag check.
[2025-03-31 06:51] LABS: Differential Indicated MANUAL DIFF
[2025-03-31 06:59] LABS: Neutrophil-Band 2 % (0-5); Neutrophil-Segmented 81 % (47-70); Total Cells Counted 100 (MANUAL DIFF)
[2025-03-31 07:05] LABS: Red Cell Morphology NORM C+C NORMAL (NORM C&C)
[2025-03-31 07:07] LABS: Magnesium 1.7 mg/dL (1.5-2.2)
--- NOTE | 2025-03-31 08:55 | PN.HOSP_ITS ---
Reason for Visit Chief Complaint: Shortness of breath for 4 days progressive worsening Subjective Subjective Breathing well. Feels well. Objective Data Objective Data Vital Signs: Vital Signs Temp Pulse Resp BP Pulse Ox O2 Del Method O2 Flow Rate 36.8 C 95 18 130/68 H 94 Nasal Cannula 4 03/31/25 08:55 03/31/25 08:55 03/31/25 08:55 03/31/25 08:55 03/31/25 08:55 03/31/25 08:55 03/31/25 08:55 FiO2 45 03/29/25 09:00 Oxygen Flow Rate (L/min) 4 Oxygen Delivery Method Nasal Cannula Weight: 84.7 kg Body Mass Index (BMI) 30.1 Intake & Output: Intake and Output for Last 24 Hours 03/29/25 03/30/25 03/31/25 23:59 23:59 23:59 Intake Total 1575 / 2175 2876.5 / 2876.5 325 / 325 Output Total 1050 / 1050 Balance 525 / 1125 2876.5 / 2876.5 325 / 325 Lab / Micro Data 03/31/25 05:28 03/31/25 05:28 Labs: Laboratory Results - last 24 hr 03/28/25 04:20: Mycoplasma pneumon IgG < 100, Mycoplasma pneumon IgM < 770 03/30/25 10:02: Potassium 2.5 L* 03/30/25 12:53: Potassium 2.6 L* 03/31/25 05:28: WBC 15.4 H, RBC 3.08 L, Hgb 8.6 L, Hct 26.8 L, MCV 87.0, MCH 27.9, MCHC 32.1, RDW Std Deviation 47.6 H, RDW Coeff of August 15.2 H, Plt Count 380, MPV 9.7, Neut % (Auto) Not Reportable, Absolute Neuts (auto) 12.8 H, Absolute Lymphs (auto) 1.08, Total Counted 100, Neutrophils % (Manual) 81 H, Band Neutrophils % 2, Lymphocytes % (Manual) 7 L, Monocytes % (Manual) 2, M etamyelocytes % 7 H, Myelocytes % 1 H, Platelet Estimate ADEQUATE, RBC Morphology NORM C+C, Sodium 143, Potassium 2.7 L*, Chloride 104, Carbon Dioxide 23.6, Anion Gap 16 H, BUN 22 H, Creatinine 1.12, Estim Creat Clear Calc 41.00 L, Est GFR (MDRD) Non-Af 48 L, BUN/Creatinine Ratio 19.9, Glucose 149 H, Calcium 8.5, Magnesium 1.7 Micro: Microbiology 03/26/25 03:39 Blood Culture (Wb) - Anticubital Left Blood Culture - Final No growth in 5 days. 03/26/25 03:39 Blood Culture (Wb) - Anticubital Right Blood Culture - Final No growth in 5 days. 03/29/25 11:17 Stool Stool Occult Blood (HAWA) - Final Occult Blood Positive 03/26/25 19:15 Sputum, Expectorated/Coughed Gram Stain - Final 03/26/25 19:15 Sputum, Expectorated/Coughed Respiratory Culture - Final Mixed normal respiratory roni. No Streptococcus pneumoniae, beta-hemolytic Streptococcus or Staphylococcus aureus isolated. 03/26/25 08:55 Urine, Clean Catch Urine Culture - Final Morganella morganii sp morgani 03/26/25 07:34 Mucosa - Nasopharyngeal Respiratory Panel (PCR) - Final 03/26/25 09:40 Nasal Secretion MRSA (PCR) - Final 03/26/25 08:55 Urine, Clean Catch Streptococcus pneumoniae Antigen (M - Final 03/26/25 08:55 Urine, Clean Catch Legionella Antigen - Final 03/26/25 04:16 Mucosa - Nose SARS-CoV-2, Influenza & RSV (PCR) - Final Physical Exam Const alert and no apparent distress HEENT head/scalp atraumatic and moist oral mucous membranes Resp normal respiratory effort, no retractions, no use of accessory muscles and clear to auscultation bilaterally Cardio regular rate, regular rhythm, S1 normal heart sound and S2 normal heart sound GI normal to inspection, nondistended, normoactive bowel sounds, soft to palpation and non-tender Neuro Sensorium / Orientation: awake and alert Assessment & Plan Assessment/Plan (1) Acute hypoxemic respiratory failure: (2) Multifocal pneumonia: (3) Pulmonary edema: PLAN: Plan Acute hypoxic respiratory failure * Improving. Secondary to combination of multifocal pneumonia. Patient placed on noninvasive ventilation BiPAP admitted to the intensive care unit * 03/27/2025; patient was weaned off BiPAP and placed on Airvo. Patient was transferred from ICU to PCU * 03/28/2025; patient still on Airvo. At a rate of 50 L/min with FiO2 of 65% * on furosemide challenge * SCx pending, COVID/influenza/RSV negative. Resp panel negative. * check home oxygen Sepsis * secondary to multifocal pneumonia. UTI ruled out (low CFUs) * Patient admitted to the intensive care unit treatment initiated per protocol, cultures sent patient placed on broad-spectrum antibiotic therapy * 03/27/2025; patient responded to fluid resuscitation and did not require pressors Suspected gram negative pneumonia * on pip/tazo and vancomycin Anemia * Transfused 1 unit PRBCs * monitor Hypokalemia * ongoing replacement * recheck pending. Hallucinations/panic attacks * Given description at the family's explaining at home and what she is experiencing here is concerned the patient may have underlying dementia or mild cognitive impairment. Will start her on quetiapine while she is here at night and I do recommend that she follow-up with geriatrics or neurology to have a formal dementia evaluation. Chronic conditions: * Hypothyroidism? Patient is on levothyroxine home dose continued * Chronic persistent A-fib? Patient is on Cardizem held on admission. Patient is on systemic anticoagulation with apixaban, continued * Essential hypertension? Patient antihypertensives held given her presentation * Anxiety disorder DVT prophylaxis Patient already on apixaban Disposition: To be determined. She like to see some further improvement of her oxygenation but hopefully discharged in when she more days. Charges/Coding Visit Charges Inpatient E&M: 39618 Subs Hosp L2
[2025-03-31] MEDS: Potassium Chloride Oral Tablet 20 MEQ 60 MEQ PO (08:56)
[2025-03-31] MEDS: Metoprolol(XL)Succ 25 MG Tablet PO ×2 (08:57→22:10)
[2025-03-31] MEDS: APIXABAN 5 MG TABLET PO ×2 (08:57→22:10)
[2025-03-31] MEDS: 0.9% Saline Lock 10 ML Syringe IV ×3 (09:11→22:11)
[2025-03-31] MEDS: Potassium Chloride Oral Tablet 20 MEQ 40 MEQ PO ×2 (12:30→17:29)
[2025-03-31 14:56] LABS: Anion Gap 17 (5-15); BUN 22 mg/dL (4-19); BUN/Creat Ratio 19.4 RATIO (10-20); Calcium,Total 8.7 mg/dL (7.6-11.0); Carbon Dioxide 23.1 mmol/L (21.0-32.0); Chloride 101 mmol/L (98-108); Estimated Creatinine Clearance 40.28 ml/min (50-250); Glucose 142 mg/dL (70-99); Potassium 2.6 mmol/L (3.3-5.1)
[2025-03-31] MEDS: Magnesium Sulfate 2 GM in Dextrose 5%-Water (100mL Bag) 100 ML IV (16:21)
[2025-03-31] MEDS: Potassium Chloride 10mEq/100mL 10 MEQ/100 ML IV.SOLN. 100 MEQ IV BOLUS ×4 (16:25→19:30)
[2025-03-31] MEDS: Potassium Phosphate 15 MM in 0.9% Normal Saline (250mL Bag) 250 ML 125 MM IV (22:11)
[2025-04-01] VITALS (14 sets, daily range): BP systolic 146–153; BP diastolic 61–88; PULSE 70–96; RESP 15–22; TEMP 36.7–37.2; O2SAT 86–98; BMI 29.9
[2025-04-01 04:36] LABS: Hematocrit 26.6 % (37-47); Hemoglobin 8.7 g/dL (12.0-15.0); Mean Corp Hgb Conc 32.7 g/dL (32-36); Mean Corpuscular Volume 87.2 fL (81-99); Mean Platelet Vol. 9.5 fl (6.2-12.0); POSITIVE COUNT YES; POSITIVE MORPHOLOGY YES; Platelet Count 370 K/mm3 (150-450); RBC Distribution Width CV 15.3 % (11.6-14.6); RBC Distribution Width SD 47.8 fl (35.1-43.9); Red Blood Count 3.05 M/mm3 (4.2-5.4); White Blood Count 17.8 K/mm3 (4.4-11.0)
[2025-04-01 04:38] LABS: Differential Indicated MANUAL DIFF
[2025-04-01] MEDS: Vancomycin Trough/Random Due 1 LAB MC (04:44)
[2025-04-01] MEDS: 0.9% Saline Lock 10 ML Syringe IV ×3 (04:59→21:49)
[2025-04-01 05:01] LABS: Magnesium 2.1 mg/dL (1.5-2.2); Vancomycin, Trough Level 16.9 ug/mL (5.0-15.0)
[2025-04-01 05:13] LABS: Anion Gap 13 (5-15); BUN 21 mg/dL (4-19); BUN/Creat Ratio 20.7 RATIO (10-20); Calcium,Total 8.6 mg/dL (7.6-11.0); Carbon Dioxide 23.8 mmol/L (21.0-32.0); Chloride 103 mmol/L (98-108); Estimated Creatinine Clearance 45.34 ml/min (50-250); Glucose 141 mg/dL (70-99); Potassium 3.6 mmol/L (3.3-5.1)
[2025-04-01] MEDS: Vancomycin HCl 1,250 MG in 0.9% Normal Saline (250mL Bag) 250 ML 167 MG IV (05:38)
[2025-04-01 06:05] LABS: Neutrophil-Band 1 % (0-5); Neutrophil-Segmented 79 % (47-70); Total Cells Counted 100 (MANUAL DIFF)
[2025-04-01 06:06] LABS: Red Cell Morphology NORM C+C NORMAL (NORM C&C)
--- NOTE | 2025-04-01 06:17 | PCM.RX.CS ---
Consult Antibiotic Management Pharmacy has been consulted to manage selected antibiotic: Vancomycin Type of Intervention Type of Consult: Follow-up Labs Labs: Sodium 140 mmol/L (133-145) 04/01/25 04:18 Potassium 3.6 mmol/L (3.3-5.1) 04/01/25 04:18 Chloride 103 mmol/L (98-108) 04/01/25 04:18 Carbon Dioxide 23.8 mmol/L (21.0-32.0) 04/01/25 04:18 Anion Gap 13 (5-15) 04/01/25 04:18 BUN 21 mg/dL (4-19) H 04/01/25 04:18 Creatinine 1.01 mg/dL (0.70-1.20) 04/01/25 04:18 Est GFR (MDRD) Non-Af 55 (>60) L 04/01/25 04:18 BUN/Creatinine Ratio 20.7 RATIO (10-20) H 04/01/25 04:18 Glucose 141 mg/dL (70-99) H 04/01/25 04:18 Vancomycin Trough 16.9 ug/mL (5.0-15.0) H 04/01/25 04:18 Microbiology Microbiology: Microbiology 03/26/25 03:39 Blood Culture (Wb) - Anticubital Left Blood Culture - Final No growth in 5 days. 03/26/25 03:39 Blood Culture (Wb) - Anticubital Right Blood Culture - Final No growth in 5 days. 03/29/25 11:17 Stool Stool Occult Blood (HAWA) - Final Occult Blood Positive 03/26/25 19:15 Sputum, Expectorated/Coughed Gram Stain - Final 03/26/25 19:15 Sputum, Expectorated/Coughed Respiratory Culture - Final Mixed normal respiratory roni. No Streptococcus pneumoniae, beta-hemolytic Streptococcus or Staphylococcus aureus isolated. 03/26/25 08:55 Urine, Clean Catch Urine Culture - Final Morganella morganii sp morgani 03/26/25 07:34 Mucosa - Nasopharyngeal Respiratory Panel (PCR) - Final 03/26/25 09:40 Nasal Secretion MRSA (PCR) - Final 03/26/25 08:55 Urine, Clean Catch Streptococcus pneumoniae Antigen (M - Final 03/26/25 08:55 Urine, Clean Catch Legionella Antigen - Final 03/26/25 04:16 Mucosa - Nose SARS-CoV-2, Influenza & RSV (PCR) - Final Goal Trough Goal Trough: 15-20 mcg/mL Pharmacy Plan for Drug Dosing Pharmacy Plan for Drug Dosing: Pharmacy Service will continue to monitor and adjust dosing as required. TROUGH 16.9 @ 245 HOURS. NO CHANGES, FOLLOW UP TROUGH IN 4 DAYS Follow-Up Labs Follow-Up Labs: Trough: Vancomycin Date/Time Labs Ordered Labs to be done on [date and time ordered]: 04/05 @ 4419
[2025-04-01] MEDS: Piperacil/Tazobactam 3.375 GM in 0.9% Normal Saline (50mL MB+) 50 ML IV ×3 (07:45→21:50)
--- NOTE | 2025-04-01 08:18 | PN.HOSP_ITS ---
Reason for Visit Chief Complaint: Shortness of breath for 4 days progressive worsening Subjective Subjective Breathing well. No events overnight. Seems to be sleeping well at night. Objective Data Objective Data Vital Signs: Vital Signs Temp Pulse Resp BP Pulse Ox O2 Del Method O2 Flow Rate 36.9 C 91 20 H 153/88 H 92 Nasal Cannula 3 04/01/25 04:50 04/01/25 06:58 04/01/25 06:58 04/01/25 04:50 04/01/25 06:58 04/01/25 06:58 04/01/25 06:58 FiO2 45 03/29/25 09:00 Oxygen Flow Rate (L/min) 3 Oxygen Delivery Method Nasal Cannula Weight: 84.2 kg Body Mass Index (BMI) 29.9 Intake & Output: Intake and Output for Last 24 Hours 03/30/25 03/31/25 04/01/25 23:59 23:59 23:59 Intake Total 2876.5 / 2876.5 1815.67 / 1815.67 705 / 705 Balance 2876.5 / 2876.5 1815.67 / 1815.67 705 / 705 Lab / Micro Data 04/01/25 04:18 04/01/25 04:18 Labs: Laboratory Results - last 24 hr 03/30/25 04:28: Diff Path Review Reviewed 03/31/25 05:28: Phosphorus 2.3 L 03/31/25 14:04: Sodium 141, Potassium 2.6 L*, Chloride 101, Carbon Dioxide 23.1, Anion Gap 17 H, BUN 22 H, Creatinine 1.14, Estim Creat Clear Calc 40.28 L, Est GFR (MDRD) Non-Af 47 L, BUN/Creatinine Ratio 19.4, Glucose 142 H, Calcium 8.7 04/01/25 04:18: WBC 17.8 H, RBC 3.05 L, Hgb 8.7 L, Hct 26.6 L, MCV 87.2, MCH 28.5, MCHC 32.7, RDW Std Deviation 47.8 H, RDW Coeff of August 15.3 H, Plt Count 370, MPV 9.5, Neut % (Auto) Not Reportable, Absolute Neuts (auto) 14.2 H, Absolute Lymphs (auto) 1.40, Total Counted 100, Neutrophils % (Manual) 79 H, Band Neutrophils % 1, Lymphocytes % (Manual) 8 L, Monocytes % (Manual) 3, M etamyelocytes % 9 H, Platelet Estimate ADEQUATE, RBC Morphology NORM C+C, Sodium 140, Potassium 3.6, Chloride 103, Carbon Dioxide 23.8, Anion Gap 13, BUN 21 H, Creatinine 1.01, Estim Creat Clear Calc 45.34 L, Est GFR (MDRD) Non-Af 55 L, B UN/Creatinine Ratio 20.7 H, Glucose 141 H, Calcium 8.6, Phosphorus 2.9, Magnesium 2.1, Vancomycin Trough 16.9 H Micro: Microbiology 03/26/25 03:39 Blood Culture (Wb) - Anticubital Left Blood Culture - Final No growth in 5 days. 03/26/25 03:39 Blood Culture (Wb) - Anticubital Right Blood Culture - Final No growth in 5 days. 03/29/25 11:17 Stool Stool Occult Blood (HAWA) - Final Occult Blood Positive 03/26/25 19:15 Sputum, Expectorated/Coughed Gram Stain - Final 03/26/25 19:15 Sputum, Expectorated/Coughed Respiratory Culture - Final Mixed normal respiratory roni. No Streptococcus pneumoniae, beta-hemolytic Streptococcus or Staphylococcus aureus isolated. 03/26/25 08:55 Urine, Clean Catch Urine Culture - Final Morganella morganii sp morgani 03/26/25 07:34 Mucosa - Nasopharyngeal Respiratory Panel (PCR) - Final 03/26/25 09:40 Nasal Secretion MRSA (PCR) - Final 03/26/25 08:55 Urine, Clean Catch Streptococcus pneumoniae Antigen (M - Final 03/26/25 08:55 Urine, Clean Catch Legionella Antigen - Final 03/26/25 04:16 Mucosa - Nose SARS-CoV-2, Influenza & RSV (PCR) - Final Physical Exam Const alert and no apparent distress HEENT head/scalp atraumatic and moist oral mucous membranes Resp normal respiratory effort and no retractions Cardio regular rate, regular rhythm, S1 normal heart sound and S2 normal heart sound GI normal to inspection, nondistended, normoactive bowel sounds, soft to palpation, non-tender and non-distended Extremity normal to inspection, full ROM and no clubbing, cyanosis or edema Neuro Sensorium / Orientation: awake Assessment & Plan Assessment/Plan (1) Acute hypoxemic respiratory failure: (2) Multifocal pneumonia: (3) Pulmonary edema: PLAN: Plan Acute hypoxic respiratory failure * Improving. Secondary to combination of multifocal pneumonia. Patient placed on noninvasive ventilation BiPAP admitted to the intensive care unit * 03/27/2025; patient was weaned off BiPAP and placed on Airvo. Patient was transferred from ICU to PCU * 03/28/2025; patient still on Airvo. At a rate of 50 L/min with FiO2 of 65% * on furosemide challenge * SCx pending, COVID/influenza/RSV negative. Resp panel negative. * check home oxygen Sepsis * Present on admission. Since resolved. * Secondary to multifocal pneumonia. UTI ruled out (low CFUs) * Patient admitted to the intensive care unit treatment initiated per protocol, cultures sent patient placed on broad-spectrum antibiotic therapy * 03/27/2025; patient responded to fluid resuscitation and did not require pressors Suspected gram negative pneumonia * on pip/tazo and vancomycin continue for a total of 7-days (complete 04/02) Anemia * Transfused 1 unit PRBCs * monitor Hypokalemia * improved with replacements. Likely 2/2 diuretics. Hallucinations/panic attacks * Given description at the family's explaining at home and what she is experiencing here is concerned the patient may have underlying dementia or mild cognitive impairment. Will start her on quetiapine while she is here at night and I do recommend that she follow-up with geriatrics or neurology to have a formal dementia evaluation. * So far improved. Continue with quetiapine while in the hospital but I told the family and her family that would hold off on discharge. Chronic conditions: * Hypothyroidism? Patient is on levothyroxine home dose continued * Chronic persistent A-fib? Patient is on Cardizem held on admission. Patient is on systemic anticoagulation with apixaban, continued * Essential hypertension? Patient antihypertensives held given her presentation * Anxiety disorder DVT prophylaxis Patient already on apixaban Disposition: To be determined. Hope is to discharge patient on the after completing antibiotics. Patient will likely need oxygen upon discharge Discussed with family at bedside Charges/Coding Visit Charges Inpatient E&M: 27415 Subs Hosp L2
[2025-04-01] MEDS: APIXABAN 5 MG TABLET PO ×2 (10:07→21:50)
[2025-04-01] MEDS: Metoprolol(XL)Succ 25 MG Tablet PO ×2 (10:07→21:49)
[2025-04-01] MEDS: Potassium Chloride Oral Tablet 20 MEQ 40 MEQ PO ×2 (10:07→17:33)
[2025-04-02] VITALS (13 sets, daily range): BP systolic 145–156; BP diastolic 57–95; PULSE 78–100; RESP 16–20; TEMP 35.8–37.1; O2SAT 87–97; BMI 30.2
[2025-04-02] MEDS: 0.9% Saline Lock 10 ML Syringe IV ×3 (00:22→13:59)
[2025-04-02] MEDS: Vancomycin HCl 1,250 MG in 0.9% Normal Saline (250mL Bag) 250 ML 167 MG IV (04:27)
[2025-04-02 05:19] LABS: Hematocrit 27.7 % (37-47); Hemoglobin 8.9 g/dL (12.0-15.0); Mean Corp Hgb Conc 32.1 g/dL (32-36); Mean Corpuscular Volume 87.4 fL (81-99); Mean Platelet Vol. 9.6 fl (6.2-12.0); POSITIVE COUNT YES; POSITIVE MORPHOLOGY YES; Platelet Count 353 K/mm3 (150-450); RBC Distribution Width CV 15.2 % (11.6-14.6); RBC Distribution Width SD 48.2 fl (35.1-43.9); Red Blood Count 3.17 M/mm3 (4.2-5.4); White Blood Count 18.7 K/mm3 (4.4-11.0)
[2025-04-02 05:38] LABS: Differential Indicated MANUAL DIFF
[2025-04-02 05:59] LABS: Anion Gap 13 (5-15); BUN 24 mg/dL (4-19); BUN/Creat Ratio 23.8 RATIO (10-20); Calcium,Total 8.5 mg/dL (7.6-11.0); Carbon Dioxide 26.4 mmol/L (21.0-32.0); Chloride 101 mmol/L (98-108); Estimated Creatinine Clearance 46.05 ml/min (50-250); Glucose 136 mg/dL (70-99); Potassium 2.6 mmol/L (3.3-5.1)
[2025-04-02] MEDS: Piperacil/Tazobactam 3.375 GM in 0.9% Normal Saline (50mL MB+) 50 ML IV ×2 (06:43→14:02)
--- NOTE | 2025-04-02 06:44 | PCM.HOSP.N ---
Hospitalist Note K 2.6, oral supplementation ordered. Mag 04/01 was normal range.
[2025-04-02] MEDS: Potassium Chloride Oral Tablet 20 MEQ 60 MEQ PO (06:50)
--- NOTE | 2025-04-02 07:53 | PN.HOSP_ITS ---
Reason for Visit Chief Complaint: Shortness of breath for 4 days progressive worsening Subjective Subjective Breathing well. Objective Data Objective Data Vital Signs: Vital Signs Temp Pulse Resp BP Pulse Ox O2 Del Method O2 Flow Rate 36.7 C 82 16 155/68 H 94 Nasal Cannula 3 04/02/25 03:20 04/02/25 06:41 04/02/25 06:41 04/02/25 03:20 04/02/25 06:41 04/02/25 06:41 04/02/25 06:41 FiO2 45 03/29/25 09:00 Oxygen Flow Rate (L/min) 3 Oxygen Delivery Method Nasal Cannula Weight: 85.2 kg Body Mass Index (BMI) 30.2 Intake & Output: Intake and Output for Last 24 Hours 03/31/25 04/01/25 04/02/25 23:59 23:59 23:59 Intake Total 1815.67 / 1815.67 1580 / 1580 725 / 725 Balance 1815.67 / 1815.67 1580 / 1580 725 / 725 Lab / Micro Data 04/02/25 04:49 04/02/25 11:23 Labs: Laboratory Results - last 24 hr 04/02/25 04:49: WBC 18.7 H, RBC 3.17 L, Hgb 8.9 L, Hct 27.7 L, MCV 87.4, MCH 28.1, MCHC 32.1, RDW Std Deviation 48.2 H, RDW Coeff of August 15.2 H, Plt Count 353, MPV 9.6, Neut % (Auto) Not Reportable, Sodium 140, Potassium 2.6 L*, Chloride 101, Carbon Dioxide 26.4, Anion Gap 13, BUN 24 H, Creatinine 1.00, E stim Creat Clear Calc 46.05 L, Est GFR (MDRD) Non-Af 56 L, BUN/Creatinine Ratio 23.8 H, Glucose 136 H, Calcium 8.5 Micro: Microbiology 03/26/25 03:39 Blood Culture (Wb) - Anticubital Left Blood Culture - Final No growth in 5 days. 03/26/25 03:39 Blood Culture (Wb) - Anticubital Right Blood Culture - Final No growth in 5 days. 03/29/25 11:17 Stool Stool Occult Blood (HAWA) - Final Occult Blood Positive 03/26/25 19:15 Sputum, Expectorated/Coughed Gram Stain - Final 03/26/25 19:15 Sputum, Expectorated/Coughed Respiratory Culture - Final Mixed normal respiratory roni. No Streptococcus pneumoniae, beta-hemolytic Streptococcus or Staphylococcus aureus isolated. 03/26/25 08:55 Urine, Clean Catch Urine Culture - Final Morganella morganii sp morgani 03/26/25 07:34 Mucosa - Nasopharyngeal Respiratory Panel (PCR) - Final 03/26/25 09:40 Nasal Secretion MRSA (PCR) - Final 03/26/25 08:55 Urine, Clean Catch Streptococcus pneumoniae Antigen (M - Final 03/26/25 08:55 Urine, Clean Catch Legionella Antigen - Final 03/26/25 04:16 Mucosa - Nose SARS-CoV-2, Influenza & RSV (PCR) - Final Physical Exam Const alert and no apparent distress HEENT head/scalp atraumatic and moist oral mucous membranes Resp normal respiratory effort and no retractions Resp Narrative: bibasilar crackles. Cardio regular rate, regular rhythm, S1 normal heart sound and S2 normal heart sound GI normal to inspection, nondistended, normoactive bowel sounds, soft to palpation, non-tender and non-distended Neuro Sensorium / Orientation: awake and alert Assessment & Plan Assessment/Plan (1) Acute hypoxemic respiratory failure: (2) Multifocal pneumonia: (3) Pulmonary edema: PLAN: Plan Acute hypoxic respiratory failure * Improving. Secondary to combination of multifocal pneumonia. Patient placed on noninvasive ventilation BiPAP admitted to the intensive care unit * 03/27/2025; patient was weaned off BiPAP and placed on Airvo. Patient was transferred from ICU to PCU * 03/28/2025; patient still on Airvo. At a rate of 50 L/min with FiO2 of 65% * on furosemide challenge * SCx pending, COVID/influenza/RSV negative. Resp panel negative. Sepsis * Present on admission. Since resolved. * Secondary to multifocal pneumonia. UTI ruled out (low CFUs) * Patient admitted to the intensive care unit treatment initiated per protocol, cultures sent patient placed on broad-spectrum antibiotic therapy * 03/27/2025; patient responded to fluid resuscitation and did not require pressors Suspected gram negative pneumonia * on pip/tazo and vancomycin continue for a total of 7-days (complete 04/02) Anemia * Transfused 1 unit PRBCs * monitor Hypokalemia * 2/2 diuretics. * ongoing despite replacement. Will give 40 IV x1 and continue with 40 Hallucinations/panic attacks * Given description at the family's explaining at home and what she is experiencing here is concerned the patient may have underlying dementia or mild cognitive impairment. Will start her on quetiapine while she is here at night and I do recommend that she follow-up with geriatrics or neurology to have a formal dementia evaluation. * So far improved. Continue with quetiapine while in the hospital but I told the family and her family that would hold off on discharge. Chronic conditions: * Hypothyroidism? Patient is on levothyroxine home dose continued * Chronic persistent A-fib? Patient is on Cardizem held on admission. Patient is on systemic anticoagulation with apixaban, continued * Essential hypertension? Patient antihypertensives held given her presentation * Anxiety disorder DVT prophylaxis Patient already on apixaban Patient is cleared antibiotics but still having ongoing issues with hypokalemia despite replacements. Will give her additional dose of IV potassium chloride and continue to monitor. If patient potassium is doing better and she is overall doing well then my hope is to discharge her on the . But her sodium is too low today for me to feel comfortable about her going home at this time. Case discussed with the patient's family at bedside Charges/Coding Visit Charges Inpatient E&M: 92632 Subs Hosp L2
[2025-04-02 08:00] LABS: Neutrophil-Band 1 % (0-5); Neutrophil-Segmented 87 % (47-70); Polychromasia 1+; Total Cells Counted 100 (MANUAL DIFF)
[2025-04-02] MEDS: Potassium Chloride Oral Tablet 20 MEQ 40 MEQ PO ×2 (09:22→17:09)
[2025-04-02] MEDS: Metoprolol(XL)Succ 25 MG Tablet PO ×2 (09:22→20:39)
[2025-04-02] MEDS: APIXABAN 5 MG TABLET PO ×2 (09:23→20:39)
[2025-04-02 11:56] LABS: Anion Gap 16 (5-15); BUN 22 mg/dL (4-19); BUN/Creat Ratio 21.0 RATIO (10-20); Calcium,Total 8.4 mg/dL (7.6-11.0); Carbon Dioxide 24.7 mmol/L (21.0-32.0); Chloride 101 mmol/L (98-108); Estimated Creatinine Clearance 44.71 ml/min (50-250); Glucose 172 mg/dL (70-99); Potassium 2.6 mmol/L (3.3-5.1)
--- NOTE | 2025-04-02 13:52 | CASEMGMT ---
Social Work SW called Kathi with [facility] and left her a message that the patient is DC today. TITO Prado
[2025-04-02] MEDS: 0.9% Normal Saline (250mL Bag) 250 ML 15 ML IV (13:57)
[2025-04-02] MEDS: Potassium Chloride 10mEq/100mL 10 MEQ/100 ML IV.SOLN. 100 MEQ IV BOLUS ×4 (14:02→17:10)
--- NOTE | 2025-04-02 15:06 | CASEMGMT ---
Social Work- SW called [facility] to update that hospitalist reports d/c tomorrow. JENNIFFER left a voicemail for intake. ALEYDA Thacker
[2025-04-02 15:14] LABS: Magnesium 1.7 mg/dL (1.5-2.2)
[2025-04-03] VITALS (14 sets, daily range): BP systolic 141–155; BP diastolic 58–93; PULSE 80–88; RESP 16–20; TEMP 35.9–37.1; O2SAT 87–99; BMI 31.4
[2025-04-03 05:11] LABS: Hematocrit 29.1 % (37-47); Hemoglobin 9.1 g/dL (12.0-15.0); Mean Corp Hgb Conc 31.3 g/dL (32-36); Mean Corpuscular Volume 89.5 fL (81-99); Mean Platelet Vol. 9.6 fl (6.2-12.0); POSITIVE COUNT YES; POSITIVE MORPHOLOGY YES; Platelet Count 369 K/mm3 (150-450); RBC Distribution Width CV 15.5 % (11.6-14.6); RBC Distribution Width SD 49.1 fl (35.1-43.9); Red Blood Count 3.25 M/mm3 (4.2-5.4); White Blood Count 22.1 K/mm3 (4.4-11.0)
[2025-04-03] MEDS: Vancomycin HCl 1,250 MG in 0.9% Normal Saline (250mL Bag) 250 ML 167 MG IV (05:12)
[2025-04-03 05:18] LABS: Differential Indicated MANUAL DIFF
[2025-04-03 05:35] LABS: Anion Gap 12 (5-15); BUN 24 mg/dL (4-19); BUN/Creat Ratio 23.4 RATIO (10-20); Calcium,Total 8.8 mg/dL (7.6-11.0); Carbon Dioxide 24.8 mmol/L (21.0-32.0); Chloride 102 mmol/L (98-108); Estimated Creatinine Clearance 46.49 ml/min (50-250); Glucose 120 mg/dL (70-99); Potassium 3.2 mmol/L (3.3-5.1)
[2025-04-03 05:39] LABS: Neutrophil-Segmented 88 % (47-70); Total Cells Counted 100 (MANUAL DIFF)
[2025-04-03 05:40] LABS: Red Cell Morphology N CYTIC NORMAL (NORM C&C)
[2025-04-03] MEDS: Metoprolol(XL)Succ 25 MG Tablet PO ×2 (09:44→21:26)
[2025-04-03] MEDS: APIXABAN 5 MG TABLET PO ×2 (09:45→21:26)
[2025-04-03] MEDS: Potassium Chloride Oral Tablet 20 MEQ 40 MEQ PO ×2 (09:45→17:15)
[2025-04-03] MEDS: Potassium Chloride 10mEq/100mL 10 MEQ/100 ML IV.SOLN. 50 MEQ IV BOLUS ×4 (12:35→19:33)
--- NOTE | 2025-04-03 14:42 | PN.HOSP_ITS ---
Reason for Visit Chief Complaint: Shortness of breath for 4 days progressive worsening Subjective Subjective Feeling well. Objective Data Objective Data Vital Signs: Vital Signs Temp Pulse Resp BP Pulse Ox O2 Del Method O2 Flow Rate 36.4 C L 80 16 148/58 H 99 Nasal Cannula 2.5 04/03/25 09:00 04/03/25 14:31 04/03/25 14:31 04/03/25 09:44 04/03/25 09:41 04/03/25 09:41 04/03/25 09:41 FiO2 45 03/29/25 09:00 Oxygen Flow Rate (L/min) 2.5 Oxygen Delivery Method Nasal Cannula Weight: 88.6 kg Body Mass Index (BMI) 31.4 Intake & Output: Intake and Output for Last 24 Hours 04/01/25 04/02/25 04/03/25 23:59 23:59 23:59 Intake Total 1580 / 1580 2061.67 / 2061.67 1005 / 1005 Balance 1580 / 1580 2061.67 / 2061.67 1005 / 1005 Lab / Micro Data 04/03/25 04:41 04/03/25 04:41 Labs: Laboratory Results - last 24 hr 04/02/25 11:23: Magnesium 1.7 04/03/25 04:41: WBC 22.1 H, RBC 3.25 L, Hgb 9.1 L, Hct 29.1 L, MCV 89.5, MCH 28.0, MCHC 31.3 L, RDW Std Deviation 49.1 H, RDW Coeff of August 15.5 H, Plt Count 369, MPV 9.6, Neut % (Auto) Not Reportable, Absolute Neuts (auto) 19.4 H, Absolute Lymphs (auto) 1.11, Total Counted 100, Neutrophils % (Manual) 88 H, L ymphocytes % (Manual) 5 L, Monocytes % (Manual) 3, Myelocytes % 4 H, Platelet Estimate ADEQUATE, RBC Morphology N CYTIC, Sodium 139, Potassium 3.2 L, Chloride 102, Carbon Dioxide 24.8, Anion Gap 12, BUN 24 H, Creatinine 1.01, Estim Creat Clear Calc 46.49 L, Est GFR (MDRD) Non-Af 55 L, BUN/Creatinine Ratio 23.4 H, G lucose 120 H, Calcium 8.8 Micro: Microbiology 03/26/25 03:39 Blood Culture (Wb) - Anticubital Left Blood Culture - Final No growth in 5 days. 03/26/25 03:39 Blood Culture (Wb) - Anticubital Right Blood Culture - Final No growth in 5 days. 03/29/25 11:17 Stool Stool Occult Blood (HAWA) - Final Occult Blood Positive 03/26/25 19:15 Sputum, Expectorated/Coughed Gram Stain - Final 03/26/25 19:15 Sputum, Expectorated/Coughed Respiratory Culture - Final Mixed normal respiratory roni. No Streptococcus pneumoniae, beta-hemolytic Streptococcus or Staphylococcus aureus isolated. 03/26/25 08:55 Urine, Clean Catch Urine Culture - Final Morganella morganii sp morgani 03/26/25 07:34 Mucosa - Nasopharyngeal Respiratory Panel (PCR) - Final 03/26/25 09:40 Nasal Secretion MRSA (PCR) - Final 03/26/25 08:55 Urine, Clean Catch Streptococcus pneumoniae Antigen (M - Final 03/26/25 08:55 Urine, Clean Catch Legionella Antigen - Final 03/26/25 04:16 Mucosa - Nose SARS-CoV-2, Influenza & RSV (PCR) - Final Physical Exam Const alert and no apparent distress HEENT head/scalp atraumatic and moist oral mucous membranes Resp normal respiratory effort and no retractions Resp Narrative: bibasilar crackles. Cardio regular rate, regular rhythm, S1 normal heart sound and S2 normal heart sound GI normal to inspection, nondistended, normoactive bowel sounds, soft to palpation, non-tender and non-distended Extremity normal to inspection and full ROM Neuro Sensorium / Orientation: awake and alert Assessment & Plan Assessment/Plan (1) Acute hypoxemic respiratory failure: (2) Multifocal pneumonia: (3) Pulmonary edema: PLAN: Plan Acute hypoxic respiratory failure * Improving. Secondary to combination of multifocal pneumonia. Patient placed on noninvasive ventilation BiPAP admitted to the intensive care unit * 03/27/2025; patient was weaned off BiPAP and placed on Airvo. Patient was transferred from ICU to PCU * 03/28/2025; patient still on Airvo. At a rate of 50 L/min with FiO2 of 65% * on furosemide challenge * SCx pending, COVID/influenza/RSV negative. Resp panel negative. Sepsis * Present on admission. Since resolved. * Secondary to multifocal pneumonia. UTI ruled out (low CFUs) * Patient admitted to the intensive care unit treatment initiated per protocol, cultures sent patient placed on broad-spectrum antibiotic therapy * 03/27/2025; patient responded to fluid resuscitation and did not require pressors Suspected gram negative pneumonia * completed a 7-day course of pip/tazo and vancomycin Anemia * Transfused 1 unit PRBCs * monitor Hypokalemia * 2/2 diuretics. * improved, but still low. Giving IV Hallucinations/panic attacks * Given description at the family's explaining at home and what she is experiencing here is concerned the patient may have underlying dementia or mild cognitive impairment. Will start her on quetiapine while she is here at night and I do recommend that she follow-up with geriatrics or neurology to have a formal dementia evaluation. * So far improved. Continue with quetiapine while in the hospital but I told the family and her family that would hold off on discharge. Chronic conditions: * Hypothyroidism? Patient is on levothyroxine home dose continued * Chronic persistent A-fib? Patient is on Cardizem held on admission. Patient is on systemic anticoagulation with apixaban, continued * Essential hypertension? Patient antihypertensives held given her presentation * Anxiety disorder DVT prophylaxis Patient already on apixaban Case discussed with the patient's family at bedside Disposition: To be determined. Hopefully patient be ready for discharge on the however overall respiratory status, which is overall improved, and potassium. Charges/Coding Visit Charges Inpatient E&M: 50877 Subs Hosp L2
[2025-04-03 15:59] LABS: Magnesium 1.9 mg/dL (1.5-2.2)
[2025-04-03] MEDS: 0.9% Saline Lock 10 ML Syringe IV ×3 (17:18→23:43)
[2025-04-04] VITALS (8 sets, daily range): BP systolic 144–166; BP diastolic 49–56; PULSE 76–90; RESP 16–20; TEMP 36.5; O2SAT 87–96; BMI 31.4
[2025-04-04] MEDS: 0.9% Saline Lock 10 ML Syringe IV (04:59)
[2025-04-04] MEDS: Vancomycin HCl 1,250 MG in 0.9% Normal Saline (250mL Bag) 250 ML 167 MG IV (05:00)
[2025-04-04] MEDS: APIXABAN 5 MG TABLET PO (09:41)
[2025-04-04] MEDS: Metoprolol(XL)Succ 25 MG Tablet PO (09:42)
[2025-04-04] MEDS: Potassium Chloride Oral Tablet 20 MEQ 40 MEQ PO (09:46)
[2025-04-04 10:03] LABS: Anion Gap 15 (5-15); BUN 26 mg/dL (4-19); BUN/Creat Ratio 26.5 RATIO (10-20); Calcium,Total 8.8 mg/dL (7.6-11.0); Carbon Dioxide 17.5 mmol/L (21.0-32.0); Chloride 103 mmol/L (98-108); Estimated Creatinine Clearance 47.43 ml/min (50-250); Glucose 135 mg/dL (70-99); Potassium 4.1 mmol/L (3.3-5.1)
--- NOTE | 2025-04-04 12:44 | DS.PCM_ITS ---
Providers Date of Admission: 03/26/25 Primary Care Physician: Dr. Rosalino Raza MD Consultations 03/26/25 06:38 Consult: Dental Mechanic / Pulmonary Medicine Routine Consulting Provider: Intensivists/Pulmonary Med Reason for Consult: acute resp failure, multifocal pneumonia EMERGENT Consult: No MD Notified: Yes Date Notified: 03/26/25 Time Notified: 05:45 Method of Notification: ED Physician Initiated Reason For Visit: SOB Diagnosis Discharge Diagnosis (1) Acute hypoxemic respiratory failure: Status: Acute Code(s): J96.01 - Acute respiratory failure with hypoxia (2) Multifocal pneumonia: Status: Acute Code(s): J18.8 - Other pneumonia, unspecified organism (3) Pulmonary edema: Status: Acute Code(s): J81.1 - Chronic pulmonary edema Plan Acute hypoxic respiratory failure * Improving. Secondary to combination of multifocal pneumonia. Patient placed on noninvasive ventilation BiPAP admitted to the intensive care unit * 03/27/2025; patient was weaned off BiPAP and placed on Airvo. Patient was transferred from ICU to PCU * 03/28/2025; patient still on Airvo. At a rate of 50 L/min with FiO2 of 65% * SCx pending, COVID/influenza/RSV negative. Resp panel negative. * Improved today. Patient does not require any oxygen at rest but requires 2 L with activity. Sepsis * Present on admission. Since resolved. * Secondary to multifocal pneumonia. UTI ruled out (low CFUs) * Patient admitted to the intensive care unit treatment initiated per protocol, cultures sent patient placed on broad-spectrum antibiotic therapy * 03/27/2025; patient responded to fluid resuscitation and did not require pressors Suspected gram negative pneumonia * completed a 7-day course of pip/tazo and vancomycin Anemia * Transfused 1 unit PRBCs * monitor Hypokalemia * resolved * 2/2 diuretics. * improved, but still low. Giving IV Hallucinations/panic attacks * Given description at the family's explaining at home and what she is experiencing here is concerned the patient may have underlying dementia or mild cognitive impairment. Will start her on quetiapine while she is here at night and I do recommend that she follow-up with geriatrics or neurology to have a formal dementia evaluation. * So far improved. Continue with quetiapine while in the hospital but I told the family and her family that would hold off on discharge. Chronic conditions: * Hypothyroidism? Patient is on levothyroxine home dose continued * Chronic persistent A-fib? Patient is on Cardizem held on admission. Patient is on systemic anticoagulation with apixaban, continued * Essential hypertension? Patient antihypertensives held given her presentation * Anxiety disorder DVT prophylaxis Patient already on apixaban Case discussed with the patient's family at bedside Disposition: To be determined. Hopefully patient be ready for discharge on the however overall respiratory status, which is overall improved, and potassium. Medications at Discharge Home Medications hydralazine 50 mg tablet 50 mg PO TID 90 days #270 tabs 06/24/24 Eliquis 5 mg tablet (apixaban) 5 mg PO BID #60 TABLETS 08/19/24 metoprolol succinate 50 mg tablet,extended release 24 hr 50 mg PO BID blood pressure This is a dose increase #180 tabs 10/16/24 levothyroxine 25 mcg tablet (Synthroid) 25 mcg PO QDAY 01/08/25 ferrous sulfate 325 mg (65 mg iron) tablet 325 mg PO BID 03/26/25 Hospital Course Operations None Procedures 2-D Echocardiogram Weight / BMI Weight Weight: 88.6 kg Body Mass Index (BMI) 31.4 ABG / Lab / Microbiology Data 04/03/25 04:41 04/04/25 09:24 Laboratory: Laboratory Results - last 24 hr 04/03/25 04:41: Magnesium 1.9 04/04/25 09:24: Sodium 136, Potassium 4.1, Chloride 103, Carbon Dioxide 17.5 L, Anion Gap 15, BUN 26 H, Creatinine 0.99, Estim Creat Clear Calc 47.43 L, Est GFR (MDRD) Non-Af 56 L, BUN/Creatinine Ratio 26.5 H, Glucose 135 H, Calcium 8.8 Microbiology: Microbiology 03/26/25 03:39 Blood Culture (Wb) - Anticubital Left Blood Culture - Final No growth in 5 days. 03/26/25 03:39 Blood Culture (Wb) - Anticubital Right Blood Culture - Final No growth in 5 days. 03/29/25 11:17 Stool Stool Occult Blood (HAWA) - Final Occult Blood Positive 03/26/25 19:15 Sputum, Expectorated/Coughed Gram Stain - Final 03/26/25 19:15 Sputum, Expectorated/Coughed Respiratory Culture - Final Mixed normal respiratory roni. No Streptococcus pneumoniae, beta-hemolytic Streptococcus or Staphylococcus aureus isolated. 03/26/25 08:55 Urine, Clean Catch Urine Culture - Final Morganella morganii sp morgani 03/26/25 07:34 Mucosa - Nasopharyngeal Respiratory Panel (PCR) - Final 03/26/25 09:40 Nasal Secretion MRSA (PCR) - Final 03/26/25 08:55 Urine, Clean Catch Streptococcus pneumoniae Antigen (M - Final 03/26/25 08:55 Urine, Clean Catch Legionella Antigen - Final 03/26/25 04:16 Mucosa - Nose SARS-CoV-2, Influenza & RSV (PCR) - Final D/C Instructions DC O2, CPAP, BIPAP Needs Home O2 Discharge instructions: Yes Type of respiratory needs?: Oxygen Oxygen frequency: With Ambulation Oxygen liters per minute during Ambulation: 2 DC home with Oxygen: Yes Home O2 MD Review: I have reviewed the oxygen testing, and the patient qualifies for home oxygen equipment and portability. The patient is mobile in the home and the community. Meaningful Use Info Meaningful Use Meaningful Use Diagnoses (Choose all that apply): None applicable Discharge Plan Admission Admit Date/Time: 03/26/25 06:07 Primary Reason for Your Visit: pneumonia Attending Provider: Ge Alexis Primary Care Provider: Rosalino Raza Consulting Providers: Denys Watts; Espinoza Abarca; Marquez Patricio; Tani Guillory; Carson Chan; Imtiaz Toney; Amairani Faith; Eze Hardy; Mehdi Mccurdy; Royce Connolly; Lisa Terrell; Benny Garcia; Michelet Moon; Shirley Bejarano; Holger Villalobos; Hernando Reynolds; Yung Romano; Berta Armstrong; Laura Anna; Rosalie Miramontes; Shirin Friedman; Cecelia Gutierrez; Reilly Bernstein; Juanjose De La Rosa; Meli Pugh; Melissa Marte; Kimmy Bill; Juanjose Stephens; Tanner Mitchell; Félix Medeiros; Meliton Schuster; Elroy Galvez; Brenden Lee; Best Broussard; Mikhail Downing; Edi Yarbrough; Marjorie Joseph; Jose Ortega; Basim Viramontes; Gopi Murray; Ankur Benitez; Juliana Xiong; Rosalino Oneill; Imtiaz Blackmon Discharge Orders/Prescriptions Prescriptions: Continued levothyroxine [Synthroid] 25 mcg tablet 25 mcg PO QDAY ferrous sulfate 325 mg (65 mg iron) tablet 325 mg PO BID hydralazine 50 mg tablet 50 mg PO TID 90 Days Qty: 270 3RF Eliquis 5 mg tablet 5 mg PO BID Qty: 60 12RF metoprolol succinate 50 mg tablet extended release 24 hr 50 mg PO BID Qty: 180 3RF Discontinued diltiazem HCl [Cardizem CD] 180 mg capsule,extended release 24hr 180 mg PO DAILY amoxicillin-pot clavulanate 875-125 mg tablet 875 mg PO Q12H Qty: 20 0RF losartan 100 mg tablet See Rx Instructions .ROUTE .COMPLEX Qty: 90 3RF Dose Instruction: TAKE 1 TABLET BY MOUTH EVERY DAY Rx Instructions: TAKE 1 TABLET BY MOUTH EVERY DAY Referrals / Follow Up: Rosalino Raza MD [Primary Care Provider, Medical] - Within 2 Weeks Disposition Disposition (needs filled in before D/C Order can be placed): Home, Self Care Charges/Coding Visit Charges Inpatient E&M: 38144 Disch Hosp
== END 2025-04-04 14:48 | disposition home or self-care (01) | DRG 871 ==
LOC: ED 03:53 → ICU 06:06 → PCU 17:05
PROVIDERS: Family Medicine; Internal Medicine; Internal Medicine Critical Care Medicine; Admitting Provider Internal Medicine; Emergency Provider Specialist/Technologist Athletic Trainer; PCP Family Medicine
DX: A41.9 Sepsis, unspecified organism (principal); J96.01 Acute respiratory failure with hypoxia; J15.69 Pneumonia due to other Gram-negative bacteria; J18.8 Other pneumonia, unspecified organism; J81.1 Chronic pulmonary edema; I48.19 Other persistent atrial fibrillation; Z66 Do not resuscitate; I11.0 Hypertensive heart disease with heart failure; I50.9 Heart failure, unspecified; D63.8 Anemia in other chronic diseases classified elsewhere; E03.9 Hypothyroidism, unspecified; I44.7 Left bundle-branch block, unspecified; E87.6 Hypokalemia; D72.829 Elevated white blood cell count, unspecified; Z87.891 Personal history of nicotine dependence; Z79.890 Hormone replacement therapy; Z90.710 Acquired absence of both cervix and uterus; Z79.01 Long term (current) use of anticoagulants; Z79.899 Other long term (current) drug therapy; F41.0 Panic disorder [episodic paroxysmal anxiety]; Z90.49 Acquired absence of other specified parts of digestive tract; R41.0 Disorientation, unspecified
CPT/HCPCS: 36415; 36600; 71045; 71275; 80048; 80053; 80202; 81001; 82274; 82550; 82607; 82728; 82803; 83540; 83550; 83605; 83735; 83880; 84100; 84132; 84484; 85025; 85045; 85610; 85730; 86738; 86850; 86900; 86901; 87040; 87070; 87077; 87086; 87088; 87186; 87205; 87449; 87631; 87633; 87641; 93005; 93306; 94002; 94003; 94640; 94660; 94762; 97110; 97116; 97162; 97166; 97530; 97535; 97802; 97803; 99285; P9016; Q9967; A4216; J1938

== ENCOUNTER 2025-04-05 12:16 | Inpatient (IN) | payer MEDICARE, OTHER, SELFPAY ==
[2025-04-05] VITALS (21 sets, daily range): BP systolic 144–180; BP diastolic 70–125; PULSE 80–100; RESP 10–38; TEMP 36.1–36.6; O2SAT 80–100; BMI 32.1; BMI 32.3
--- NOTE | 2025-04-05 12:33 | EKG12_ITS ---
Test Reason : SOB Blood Pressure : */* mmHG Vent. Rate : 90 BPM Atrial Rate : * BPM P-R Int : * ms QRS Dur : 136 ms QT Int : 382 ms P-R-T Axes : * -59 112 degrees QTcB Int : 467 ms Atrial fibrillation Left axis deviation Non-specific intra-ventricular conduction block Minimal voltage criteria for LVH, may be normal variant ( Gorge product ) Cannot rule out Anteroseptal infarct , age undetermined T wave abnormality, consider lateral ischemia Abnormal ECG Confirmed by DOMINIC OCAMPO, OSCAR ([id number]), city editor NIK DYER ([id number]) on 04/06/2025 1:23:30 PM Referred By: ALEE/ATA Confirmed By: OSCAR ALFARO MD
--- NOTE | 2025-04-05 12:39 | EDS_ITS ---
HPI History of Present Illness Chief Complaint: Shortness of Breath Narrative Narrative: Chief complaint and HPI: 84-year-old female with past medical history of atrial fibrillation on Eliquis, HTN, hypothyroidism, and recent diagnosis of pneumonia presents for evaluation of hypoxia and shortness of breath. History taken by medical record, patient's family member, and patient. Patient was recently admitted x 2 to the hospital for respiratory illness. She was just discharged on 04/04/2025. Admitted for multifocal pneumonia. Was on BiPAP and then Airvo. Was discharged on 2 L nasal cannula with with activity. Patient had finished her antibiotic course. Since being discharged home, patient's shortness of breath has worsened. Shortness of breath is worse with activity. She denies any fever, chills, chest pain, abdominal pain, nausea, vomiting. Review of systems: See HPI Medications: As listed on the chart Allergies: As listed on the chart PFSH: Per chart Vital signs: As listed on the chart. Reviewed. Physical exam: Gen: A&O x3 Head: Normocephalic, atraumatic Eyes: No sclera icterus, conjunctiva clear ENT: Moist mucous membranes Neck: Trachea midline, No JVD CV: Regular rate, irregular irregular rhythm, no murmurs, no peripheral edema Resp: Lungs CTA BL, no w/r/c,dyspneic when speaking, tachypneic, on 5 L nasal cannula GI: Abd soft, non-distended, non-tender, no r/r/g Musc: Moves all extremities, no deformity Skin: Warm, dry Psych: Cooperative, appropriate mood and affect [facility] Medical History Paroxysmal A-fib Chronic anticoagulation Longstanding persistent atrial fibrillation Left bundle branch block (LBBB) Obesity Paroxysmal atrial fibrillation Essential (primary) hypertension Transient global amnesia Anxiety disorder Home Medications ?Medication ?Instructions ?Recorded ?Last Taken ?Type hydralazine 50 mg tablet 50 mg PO TID 90 days #270 ta bs 06/24/24 Unknown Rx Eliquis 5 mg tablet (apixaban) 5 mg PO BID #60 TABLETS 08/19/24 Unknown Rx metoprolol succinate 50 mg 50 mg PO BID blood pressure This 10/16/24 Unknown Rx tablet,extended release 24 hr is a dose increase #180 tabs levothyroxine 25 mcg tablet 25 mcg PO QDAY 01/08/25 Un known History (Synthroid) ferrous sulfate 325 mg (65 mg 325 mg PO BID 03/26/25 U nknown History iron) tablet amlodipine 10 mg tablet 10 mg PO DAILY 04/05/25 Unkn own History losartan 100 mg tablet 100 mg PO DAILY blood pressu re 04/05/25 Unknown History Allergy/AdvReac Type Severity Reaction Status Date / Time caffeine AdvReac Other Verified 04/05/25 12:26 Family History Father CVA (cerebral vascular accident) Mother Hypertension Heart disease CHF (congestive heart failure) Surgical History Hx of appendectomy H/O oophorectomy History of cholecystectomy H/O: hysterectomy Social History Smoking Status: Former smoker how long ago did patient quit smokin years age alcohol intake: never caffeine: No EXAM Physical Exam Const Vital Signs: 04/05/25 12:17 04/05/25 12:28 Temperature 97.9 F Temperature Source Oral Pulse Rate 92 Respiratory Rate 22 H Respiratory Effort Short of Breath Accessory Muscle Use Respiratory Depth Shallow Respiratory Pattern Tachypnea Blood Pressure 158/75 H Blood Pressure Mean 102 Pulse Ox 95 Oxygen Delivery Method Nasal Cannula Nasal Cannula Oxygen Flow Rate (L/min) 5 5 MDM MDM MDM Narrative Medical decision making narrative: 84-year-old female with past medical history of atrial fibrillation on Eliquis, HTN, hypothyroidism, and recent diagnosis of pneumonia presents for evaluation of hypoxia and shortness of breath. History taken by medical record, patient's family member, and patient. Patient was recently admitted x 2 to the hospital for respiratory illness. She was just discharged on 04/04/2025. I reviewed the discharge summary. Admitted for multifocal pneumonia. Was on BiPAP and then Airvo. Was discharged on 2 L nasal cannula with with activity. Patient had finished her antibiotic course. Since being discharged home, patient's shortness of breath has worsened. Shortness of breath is worse with activity. On presentation, patient's pulse ox was in the 80s on 3 L nasal cannula. She was tachypneic and dyspneic. Patient placed on 5 L nasal cannula with improvement in tachypnea. Differential diagnosis includes but is not limited to pneumonia, PE, viral illness, electrolyte abnormality, dehydration, ACS. NS bolus and DuoNeb ordered. Respiratory workup ordered including CTA of the chest. EKG: Interpreted by me/EM physician: EKG shows atrial fibrillation with rate control at 90. No QTc prolongation. No acute ischemic changes. Looks similar to previous EKG Discharge Plan Triage Chief Complaint: Shortness of Breath ED Provider: Agustin Busch Dx/Rx/DC Orders Prescriptions: No Action levothyroxine [Synthroid] 25 mcg tablet 25 mcg PO QDAY ferrous sulfate 325 mg (65 mg iron) tablet 325 mg PO BID amlodipine 10 mg tablet 10 mg PO DAILY losartan 100 mg tablet 100 mg PO DAILY hydralazine 50 mg tablet 50 mg PO TID 90 Days Qty: 270 3RF Eliquis 5 mg tablet 5 mg PO BID Qty: 60 12RF metoprolol succinate 50 mg tablet extended release 24 hr 50 mg PO BID Qty: 180 3RF Primary Care Provider: Rosalino Raza Referrals: Rosalino Raza MD [Primary Care Provider, Medical] Print Language: Hebrew
--- NOTE | 2025-04-05 12:39 | ED.VIS.DYS ---
HPI History of Present Illness Chief Complaint: Shortness of Breath Narrative Narrative: Chief complaint and HPI: 84-year-old female with past medical history of atrial fibrillation on Eliquis, HTN, hypothyroidism, and recent diagnosis of pneumonia presents for evaluation of hypoxia and shortness of breath. History taken by medical record, patient's family member, and patient. Patient was recently admitted x 2 to the hospital for respiratory illness. She was just discharged on 04/04/2025. Admitted for multifocal pneumonia. Was on BiPAP and then Airvo. Was discharged on 2 L nasal cannula with with activity. Patient had finished her antibiotic course. Since being discharged home, patient's shortness of breath has worsened. Shortness of breath is worse with activity. She denies any fever, chills, chest pain, abdominal pain, nausea, vomiting. Review of systems: See HPI Medications: As listed on the chart Allergies: As listed on the chart PFSH: Per chart Vital signs: As listed on the chart. Reviewed. Physical exam: Gen: A&O x3 Head: Normocephalic, atraumatic Eyes: No sclera icterus, conjunctiva clear ENT: Moist mucous membranes Neck: Trachea midline, No JVD CV: Regular rate, irregular irregular rhythm, no murmurs, no peripheral edema Resp: Lungs CTA BL, no w/r/c,dyspneic when speaking, tachypneic, on 5 L nasal cannula GI: Abd soft, non-distended, non-tender, no r/r/g Musc: Moves all extremities, no deformity Skin: Warm, dry Psych: Cooperative, appropriate mood and affect [facility] Medical History Paroxysmal A-fib Chronic anticoagulation Longstanding persistent atrial fibrillation Left bundle branch block (LBBB) Obesity Paroxysmal atrial fibrillation Essential (primary) hypertension Transient global amnesia Anxiety disorder Home Medications ?Medication ?Instructions ?Recorded ?Last Taken ?Type hydralazine 50 mg tablet 50 mg PO TID 90 days #270 tabs 06/24/24 04/05/25 Rx Eliquis 5 mg tablet (apixaban) 5 mg PO BID #60 TABLETS 08/19/24 04/05/25 Rx metoprolol succinate 50 mg 50 mg PO BID blood pressure This 10/16/24 04/05/25 Rx tablet,extended release 24 hr is a dose increase #180 tabs levothyroxine 25 mcg tablet 25 mcg PO QDAY 01/08/25 04/04/25 History (Synthroid) ferrous sulfate 325 mg (65 mg 325 mg PO BID 03/26/25 04/05/25 History iron) tablet amlodipine 10 mg tablet 10 mg PO DAILY 04/05/25 Unknown History Allergy/AdvReac Type Severity Reaction Status Date / Time caffeine AdvReac Other Verified 04/05/25 12:26 Family History Father CVA (cerebral vascular accident) Mother Hypertension Heart disease CHF (congestive heart failure) Surgical History Hx of appendectomy H/O oophorectomy History of cholecystectomy H/O: hysterectomy Social History Smoking Status: Former smoker how long ago did patient quit smokin years age alcohol intake: never caffeine: No EXAM Physical Exam Const Vital Signs: 04/05/25 12:17 04/05/25 12:28 04/05/25 12:41 Temperature 97.9 F Temperature Source Oral Pulse Rate 92 Respiratory Rate 22 H Respiratory Effort Short of Breath Accessory Muscle Use Respiratory Depth Shallow Respiratory Pattern Tachypnea Blood Pressure 158/75 H Blood Pressure Mean 102 Pulse Ox 95 93 Oxygen Delivery Method Nasal Cannula Nasal Cannula Nasal Cannula Oxygen Flow Rate (L/min) 5 5 6 Fraction of Inspired Oxygen (FIO2) 04/05/25 12:45 04/05/25 13:30 04/05/25 13:37 Temperature 98 F Temperature Source Oral Pulse Rate 89 94 Respiratory Rate 25 H 35 H 34 H Respiratory Effort Respiratory Depth Respiratory Pattern Blood Pressure 180/71 H Blood Pressure Mean 107 Pulse Ox 94 Oxygen Delivery Method Nasal Cannula Oxygen Flow Rate (L/min) 6 Fraction of Inspired Oxygen (FIO2) 90 04/05/25 13:37 04/05/25 13:43 04/05/25 14:09 Temperature 98 F Temperature Source Oral Pulse Rate 98 86 84 Respiratory Rate 38 H 29 H 27 H Respiratory Effort Respiratory Depth Respiratory Pattern Tachypnea Blood Pressure 180/71 H 180/71 H Blood Pressure Mean 107 107 Pulse Ox 80 99 100 Oxygen Delivery Method Nasal Cannula Bi-pap Oxygen Flow Rate (L/min) 6 Fraction of Inspired Oxygen (FIO2) 75 MDM MDM MDM Narrative Medical decision making narrative: 84-year-old female with past medical history of atrial fibrillation on Eliquis, HTN, hypothyroidism, and recent diagnosis of pneumonia presents for evaluation of hypoxia and shortness of breath. History taken by medical record, patient's family member, and patient. Patient was recently admitted x 2 to the hospital for respiratory illness. She was just discharged on 04/04/2025. I reviewed the discharge summary. Admitted for multifocal pneumonia. Was on BiPAP and then Airvo. Was discharged on 2 L nasal cannula with with activity. Patient had finished her antibiotic course. Since being discharged home, patient's shortness of breath has worsened. Shortness of breath is worse with activity. On presentation, patient's pulse ox was in the 80s on 3 L nasal cannula. She was tachypneic and dyspneic. Patient placed on 5 L nasal cannula with improvement in tachypnea. Differential diagnosis includes but is not limited to pneumonia, PE, viral illness, electrolyte abnormality, dehydration, ACS. 500 NS bolus and DuoNeb ordered. Respiratory workup ordered including CTA of the chest. CBC shows worsening leukocytosis of 26.9. Baseline anemia of 10.3. Platelets unremarkable. Patient meets sepsis criteria. Will cover her broadly with vancomycin and Zosyn given her recent multiple hospitalizations. Will not be giving 30 cc/kg bolus as patient is not hypotensive and there is also concern for fluid overload and respiratory status. Patient had worsening tachypnea requiring BiPAP. ABG relatively unremarkable. CMP relatively unremarkable without ADALID. Lactic acid elevated at 2.2. Again being dejection with fluids. Patient did receive 500 cc NS bolus. Troponin 27 and 29. Patient not having chest pain. BNP elevated at 13,017. CTA of the chest negative for PE. Persistent but decreased multifocal lung consolidations, right greater than left. Bilateral pleural effusions, right greater than left. Enlarged mediastinal lymph nodes. Patient and family updated of all the results and the plan for admission. Patient's respiratory status is likely secondary to her multifocal pneumonia and fluid overload. Patient was discussed with the hospitalist who recommended IV Lasix and admission to the PCU. Orders placed. EKG: Interpreted by me/EM physician: EKG shows atrial fibrillation with rate control at 90. No QTc prolongation. No acute ischemic changes. Looks similar to previous EKG 35 minutes of critical care time utilized in managing the patient. This is due to high probability of and deterioration of the patient based on the patient's condition and excludes any separately billable procedures. Impression: 1. Acute on chronic hypoxic respiratory failure requiring BiPAP 2. Sepsis secondary to persistent multifocal pneumonia 3. Bilateral pulmonary effusions 4. Elevated troponin secondary to above diagnoses 5. Chronic anemia Lab Data Labs: Laboratory Results - last 24 hr 04/05/25 12:45 WBC 26.9 H RBC 3.52 L Hgb 10.3 L Hct 32.1 L MCV 91.2 MCH 29.3 MCHC 32.1 RDW Std Deviation 52.3 H RDW Coeff of August 16.9 H Plt Count 374 MPV 9.9 Neut % (Auto) Not Reportable Absolute Neuts (auto) 21.5 H Absolute Lymphs (auto) 3.23 Total Counted 100 Neutrophils % (Manual) 78 H Band Neutrophils % 2 Lymphocytes % (Manual) 12 L Monocytes % (Manual) 5 Eosinophils % (Manual) 1 Metamyelocytes % 1 Myelocytes % 1 H Diff Path Review May foll PT 18.6 H INR 1.5 APTT 23.5 L Sodium 134 Potassium 3.6 Chloride 102 Carbon Dioxide 19.7 L Anion Gap 13 BUN 25 H Creatinine 0.91 Estim Creat Clear Calc 52.12 Est GFR (MDRD) Non-Af 62 BUN/Creatinine Ratio 27.1 H Glucose 109 H Lactic Acid 2.2 H* Calcium 8.9 Total Bilirubin 1.63 H AST 27 ALT 18 Alkaline Phosphatase 77 Troponin T High Sens 27 [place] [address] H Total Protein 6.0 Albumin 3.3 L Globulin 2.6 Albumin/Globulin Ratio 1.3 ABG Data ABG results: ABG 04/05/25 13:45 Specimen Type ART Sample Site L Radial pH 7.45 Bicarbonate Actual 19.7 L Total CO2 21 Base Excess -4 L O2 Saturation 79 L O2 % 6.0 ABG pCO2 28.1 L ABG pO2 41 L Darrion Test Positive O2 Delivery Device Cannula Vent Mode Not entered Radiography Diagnostic Testing: Clinical Impression(s) from Imaging Studies Chest CTA 04/05/25 13:05 IMPRESSION: 1. No evidence of pulmonary embolism. 2. Compared to CTA of the chest 03/26/2025, persistent but decreased multifocal lung consolidations, [id number]-left. Findings are consistent with pneumonia. 3. Bilateral pleural effusions, [id number]-left. 4. Enlarged mediastinal lymph nodes likely reactive in nature. Reading Location: [id number] Discharge Plan Disposition Disposition: Acute Care Hospital [facility] Discharge Date/Time: 04/05/25 16:13
[2025-04-05 12:58] LABS: Hematocrit 32.1 % (37-47); Hemoglobin 10.3 g/dL (12.0-15.0); Mean Corp Hgb Conc 32.1 g/dL (32-36); Mean Corpuscular Volume 91.2 fL (81-99); Mean Platelet Vol. 9.9 fl (6.2-12.0); POSITIVE COUNT YES; POSITIVE DIFFERENTIAL YES; POSITIVE MORPHOLOGY YES; Platelet Count 374 K/mm3 (150-450); RBC Distribution Width CV 16.9 % (11.6-14.6); RBC Distribution Width SD 52.3 fl (35.1-43.9); Red Blood Count 3.52 M/mm3 (4.2-5.4); White Blood Count 26.9 K/mm3 (4.4-11.0)
[2025-04-05] MEDS: 0.9% Normal Saline (500mL Bag) 500 ML 999 ML IV (12:59)
[2025-04-05 13:01] LABS: Differential Indicated MANUAL DIFF
--- NOTE | 2025-04-05 13:05 | CT_ITS ---
PROCEDURE: CTA CHEST W/WO CONTRAST 04/05/2025 REASON FOR EXAM: PNA, ASSESS FOR PE TECHNIQUE: Procedure Code: [id number] Modality: CT Procedure: CTA CHEST W/WO CONTRAST Multidetector CT angiography of the chest with intravenous contrast including multiplanar and post-processed maximum intensity projection (MIP) were generated and interpreted. CONTRAST: Isovue 370 VOLUME: 97 mL One or more dose reduction techniques were used (e.g., Automated exposure control, adjustment of the mA and/or kV according to patient size, use of iterative reconstruction technique). RADIATION DOSE SUMMARY: DLP: 555.15 mGycm COMPARISON: CTA chest 03/26/2025 FINDINGS: Opacification of the pulmonary arterial tree is adequate Pulmonary artery and thoracic vessels: There are no filling defects in the central pulmonary arteries. The main pulmonary artery and thoracic aorta are normal in caliber. Atherosclerotic calcification of the thoracic aorta. Inferior vena cava contrast reflux suggestive of right-sided heart dysfunction. Pulmonary parenchyma: Interval decrease in multifocal right lung consolidations. Scattered small left lung consolidations. Diffuse ground-glass opacity of the right lung which is nonspecific but may reflect inflammatory changes or pulmonary edema. Mosaic attenuation of the bilateral lungs, [id number]-left. Lung nodule versus consolidation in the medial inferior left upper lobe measuring up to 6 mm (series 2, image 190). Airways: The central airways are patent. Pleural space: Moderate right pleural effusion slightly increased in size. Stable small left pleural effusion. No pneumothorax. Heart and pericardium: The heart is enlarged. No pericardial effusion. Trace coronary artery calcifications. Mediastinum and leno: Redemonstrated enlarged mediastinal lymph nodes measuring up to 2.0 cm likely reactive in nature. Osseous structures: No aggressive osseous lesion. Degenerative changes of the thoracic spine. Upper visualized abdomen: Unremarkable. CT/CTA Chest W/WO Contrast IMPRESSION: 1. No evidence of pulmonary embolism. 2. Compared to CTA of the chest 03/26/2025, persistent but decreased multifocal lung consolidations, [id number]-left. Findings are consistent with pneumonia. 3. Bilateral pleural effusions, [id number]-[id number]-spjv-left. 4. Enlarged mediastinal lymph nodes likely reactive in nature. Reading Location: [id number]
[2025-04-05 13:26] LABS: Prothrombin Time (Protime)PT. 18.6 SECONDS (11.7-14.9)
[2025-04-05 13:27] LABS: Partial Thromboplast Time 23.5 Seconds (24.1-36.2)
[2025-04-05 13:28] LABS: Neutrophil-Band 2 % (0-5); Neutrophil-Segmented 78 % (47-70); Total Cells Counted 100 (MANUAL DIFF)
[2025-04-05 13:32] LABS: AST(SGOT) 27 U/L (<=31); Alanine Aminotransfer ALT/SGPT 18 U/L (<=34); Albumin, Serum 3.3 g/dL (3.4-4.8); Alkaline Phosphatase 77 U/L (35-104); Anion Gap 13 (5-15); BUN 25 mg/dL (4-19); BUN/Creat Ratio 27.1 RATIO (10-20); Calcium,Total 8.9 mg/dL (7.6-11.0); Carbon Dioxide 19.7 mmol/L (21.0-32.0); Chloride 102 mmol/L (98-108); Estimated Creatinine Clearance 52.12 ml/min (50-250); Globulin 2.6 g/dL (2.2-4.2); Glucose 109 mg/dL (70-99); Potassium 3.6 mmol/L (3.3-5.1); Pro- Brain NATRIURETIC PEPTIDE 13017 pg/mL (<=1800); Troponin T High Sensitivity 27 ng/L (<=14)
[2025-04-05] MEDS: Piperacil/Tazobactam 4.5 GM in 0.9% Normal Saline (100mL MB+) 100 ML IV (13:50)
[2025-04-05 13:52] LABS: Allen Test Positive; Base Excess -4 mmol/L (-2 to +2); FI02 6.0; PO2 41 mmHG (75-100); SITE L Radial; SO2 79 % (94-98)
--- NOTE | 2025-04-05 14:14 | PCM.HP.STD ---
HPI - General General Date of Admission: 04/05/25 Date of Service: 04/05/25 Chief Complaint: Shortness of breath HPI Narrative AMADOR GRANADOS, is a 84 F who presented to [facility] ED on 04/05/2025 with shortness of breath. Patient was hospitalized here from 03/26-04/04 for acute hypoxic respiratory failure and sepsis suspected secondary to multifocal gram-negative pneumonia. Patient required Airvo at 50 L and 65% FiO2 during that hospitalization. Infectious workup was negative. She was able to be weaned down to room air at rest and 2 L with exertion by day of discharge. She completed 7-day course of IV vancomycin and Zosyn during the hospitalization. Medical history is otherwise notable for chronic persistent A-fib and hypertension. Her home losartan was held on discharge, and it appears her amlodipine was also held on discharge. This morning patient noted feeling more short of breath than on discharge yesterday, and over the course of the morning it continued to worsen so she came back in for further evaluation. In the ED she was satting in the high 80s to low 90s on 6 L nasal cannula so she was placed on BiPAP with saturations improved to the high 90s. ABG on nasal cannula showed pH 7.45 but pO2 only 41. CTA chest showed no PE, persistent but decreased multifocal lung consolidations but now worsened bilateral pleural effusions right greater than left. BNP 13,000, up from 5000 on 03/26. BP elevated to the 170s to 180s systolic. Given acute on chronic respiratory failure, hospitalist was contacted for admission. I saw the patient at bedside in the ED, multiple family numbers present. Patient was sitting up in bed and breathing comfortably on BiPAP with saturations in the high 90s. She reported feeling much improved from a shortness of breath standpoint on BiPAP. She did have +2-3 lower extremity pitting edema bilaterally noted. She denied any new onset fevers or chills, cough or sputum production compared to previous days. No other acute concerns currently. Will be admitted for further management. [facility] Medical History Paroxysmal A-fib Chronic anticoagulation Longstanding persistent atrial fibrillation Left bundle branch block (LBBB) Obesity Paroxysmal atrial fibrillation Essential (primary) hypertension Transient global amnesia Anxiety disorder Home Medications ?Medication ?Instructions ?Recorded ?Last Taken ?Type hydralazine 50 mg tablet 50 mg PO TID 90 days #270 tabs 06/24/24 04/05/25 Rx Eliquis 5 mg tablet (apixaban) 5 mg PO BID #60 TABLETS 08/19/24 04/05/25 Rx metoprolol succinate 50 mg 50 mg PO BID blood pressure This 10/16/24 04/05/25 Rx tablet,extended release 24 hr is a dose increase #180 tabs levothyroxine 25 mcg tablet 25 mcg PO QDAY 01/08/25 04/04/25 History (Synthroid) ferrous sulfate 325 mg (65 mg 325 mg PO BID 03/26/25 04/05/25 History iron) tablet amlodipine 10 mg tablet 10 mg PO DAILY 04/05/25 Unknown History Allergy/AdvReac Type Severity Reaction Status Date / Time caffeine AdvReac Other Verified 04/05/25 12:26 Family History Father CVA (cerebral vascular accident) Mother Hypertension Heart disease CHF (congestive heart failure) Surgical History Hx of appendectomy H/O oophorectomy History of cholecystectomy H/O: hysterectomy Social History Smoking Status: Former smoker how long ago did patient quit smokin years age alcohol intake: never caffeine: No ROS Constitutional Constitutional: Reports fatigue; Denies chills, fever(s) or weakness Cardiovascular Cardiovascular: Reports dyspnea on exertion and edema; Denies chest pain, lightheadedness, orthopnea or palpitations Respiratory/Chest Respiratory/Chest: Reports shortness of breath at rest; Denies cough, productive cough or wheezing Gastrointestinal Gastrointestinal: Denies abdominal pain Musculoskeletal Musculoskeletal: Denies arthralgias or myalgias Neurologic Neurologic: Denies dizziness, focal weakness or headache(s) Vital Signs Vital Signs Vital Signs: 04/05/25 12:17 04/05/25 12:28 04/05/25 12:41 Temperature 97.9 F Temperature Source Oral Pulse Rate 92 Respiratory Rate 22 H Respiratory Effort Short of Breath Accessory Muscle Use Respiratory Depth Shallow Respiratory Pattern Tachypnea Blood Pressure 158/75 H Blood Pressure Mean 102 Pulse Ox 95 93 Oxygen Delivery Method Nasal Cannula Nasal Cannula Nasal Cannula Oxygen Flow Rate (L/min) 5 5 6 Fraction of Inspired Oxygen (FIO2) 04/05/25 13:37 04/05/25 13:37 04/05/25 13:43 Temperature 98 F 98 F Temperature Source Oral Oral Pulse Rate 94 98 86 Respiratory Rate 34 H 38 H 29 H Respiratory Effort Respiratory Depth Respiratory Pattern Blood Pressure 180/71 H 180/71 H 180/71 H Blood Pressure Mean 107 107 107 Pulse Ox 94 80 99 Oxygen Delivery Method Nasal Cannula Nasal Cannula Bi-pap Oxygen Flow Rate (L/min) 6 6 Fraction of Inspired Oxygen (FIO2) 04/05/25 14:09 Temperature Temperature Source Pulse Rate 84 Respiratory Rate 27 H Respiratory Effort Respiratory Depth Respiratory Pattern Tachypnea Blood Pressure Blood Pressure Mean Pulse Ox 100 Oxygen Delivery Method Oxygen Flow Rate (L/min) Fraction of Inspired Oxygen (FIO2) 75 Weight Weight: 90.4 kg Body Mass Index (BMI) 32.1 Physical Exam Const alert, oriented x3 and no apparent distress Constitutional Narrative: Elderly female, class I obesity, mildly fatigued appearing, otherwise sitting back comfortably in bed and breathing comfortably on BiPAP, answering questions with short appropriate responses, in no acute distress. General Appearance: cooperative and comfortable HEENT normocephalic, head/scalp atraumatic, hearing grossly normal bilaterally, nasal mucous membranes and turbinates normal and moist oral mucous membranes HEENT Narrative: BiPAP in place. Eyes PERRL, EOMs intact bilaterally and conjunctivae normal Neck full ROM Chest inspection of chest normal Resp normal respiratory effort and no use of accessory muscles Resp Narrative: Breathing comfortably on BiPAP at rest. Diminished breath sounds in bilateral lung bases with crackles noted in mid lung zones, no wheezing noted. Cardio no murmurs and peripheral pulses 2+ throughout Cardio Narrative: A-fib, rate controlled. GI normal to inspection, nondistended, normoactive bowel sounds, soft to palpation, non-tender and non-distended Back/Spine normal ROM Extremity Extremity Narrative: +2-3 lower extremity pitting edema up to the knees noted. Skin no rashes or lesions noted Neuro moves all extremities and no focal motor deficits Speech: speech normal Psych mental status grossly normal Results Lab / Micro Data 04/05/25 12:45 04/05/25 12:45 Labs: Laboratory Results - last 24 hr 04/05/25 12:45: WBC 26.9 H, RBC 3.52 L, Hgb 10.3 L, Hct 32.1 L, MCV 91.2, MCH 29.3, MCHC 32.1, RDW Std Deviation 52.3 H, RDW Coeff of August 16.9 H, Plt Count 374, MPV 9.9, Neut % (Auto) Not Reportable, Absolute Neuts (auto) 21.5 H, Absolute Lymphs (auto) 3.23, Total Counted 100, Neutrophils % (Manual) 78 H, Band Neutrophils % 2, Lymphocytes % (Manual) 12 L, Monocytes % (Manual) 5, Eosinophils % (Manual) 1, Metamyelocytes % 1, Myelocytes % 1 H, Diff Path Review August, PT 18.6 H, INR 1.5, APTT 23.5 L, Sodium 134, Potassium 3.6, Chloride 102, Carbon Dioxide 19.7 L, Anion Gap 13, BUN 25 H, Creatinine 0.91, Estim Creat Clear Calc 52.12, Est GFR (MDRD) Non-Af 62, BUN/Creatinine Ratio 27.1 H, Glucose 109 H, Lactic Acid 2.2 H*, Calcium 8.9, Total Bilirubin 1.63 H, AST 27, ALT 18, Alkaline Phosphatase 77, Troponin T High Sens 27 H D, [place] [address] H, Total Protein 6.0, Albumin 3.3 L, Globulin 2.6, Albumin/Globulin Ratio 1.3 ABG Data ABG results: ABG 04/05/25 13:45 Specimen Type ART Sample Site L Radial pH 7.45 Bicarbonate Actual 19.7 L Total CO2 21 Base Excess -4 L O2 Saturation 79 L O2 % 6.0 ABG pCO2 28.1 L ABG pO2 41 L Darrion Test Positive O2 Delivery Device Cannula Vent Mode Not entered Imaging Radiology Impression Chest CTA 04/05/25 13:05 IMPRESSION: 1. No evidence of pulmonary embolism. 2. Compared to CTA of the chest 03/26/2025, persistent but decreased multifocal lung consolidations, [id number]-left. Findings are consistent with pneumonia. 3. Bilateral pleural effusions, [id number]-[id number]-eihc-left. 4. Enlarged mediastinal lymph nodes likely reactive in nature. Reading Location: [id number] Assessment & Plan Assessment/Plan (1) Acute hypoxemic respiratory failure: (2) Acute heart failure with preserved ejection fraction (HFpEF): PLAN: Plan Patient is an 84-year-old female who presented to [facility] ED on 04/05/2025 with shortness of breath. 1. Acute on chronic hypoxic respiratory failure suspected secondary to acute HFpEF exacerbation; recent episode of respiratory failure secondary to multifocal pneumonia ? Admit under inpatient status to PCU. Recently hospitalized from 03/26-04/04 for acute hypoxic respiratory failure suspected secondary to multifocal pneumonia. Improved with IV antibiotics and steroids, weaned to only 2 L with exertion by day of discharge. Returned here on 04/05 and oxygen saturations were in the high 80s to low 90s on 6 L nasal cannula so she was placed on BiPAP in the ED. ABG with pH 7.4 but pO2 only 41 which corroborates low oxygen saturations. Highest suspicion is for flash pulmonary edema secondary to hypertensive urgency as below. CTA chest on admit showed new bilateral pleural effusions and BNP 13,000 (up from 5,000 on 03/26). Given IV Lasix in the ED and will treat with IV Lasix 20 mg twice daily for now, follow-up a.m. BMP and monitor urine output. Wean supplemental oxygen as able. Procalcitonin normal and patient noninfectious appearing and completed 7-day course of IV vancomycin and Zosyn, will hold off on further antibiotics for now. 2. Hypertensive urgency, chronic persistent A-fib ? Hypertensive to the 170s to 180s systolic in the ED. Was in rate controlled A-fib. It appears home losartan 100 mg daily was discontinued on recent discharge, and patient also was not taking home amlodipine for unclear reason. Will restart home amlodipine and continue home Toprol and hydralazine. IV hydralazine 10 mg every 4 hours as needed ordered for SBP greater than 170. Continue home Eliquis. 3. Anxiety/depression with recent history of panic attacks/hallucinations ? Suspected that patient may have underlying cognitive impairment/dementia with nighttime behavioral disturbances. Patient was managed with low-dose quetiapine at night during last hospitalization with good control symptoms, but this was not continued on discharge. Will restart quetiapine at night on this hospitalization. Will need formal dementia evaluation done by either geriatrics or neurology on discharge. 4. Chronic iron deficiency anemia ? Hemoglobin 10.3 on admit. Patient did require 1 unit of blood during recent previous admission. Continue home iron supplement. Follow-up a.m. CBC. 5. Hypothyroidism ? Continue home Synthroid. 6. Acute on chronic debility ? PT/OT/case management following. Patient had good therapy scores by day of discharge on recent hospitalization. However, patient and family note that she continues to feel weaker than her baseline. Appreciate therapy recommendations. DVT prophylaxis: Not indicated, on Eliquis CODE STATUS: DNR CCA, DNI Expected disposition: TBD Total clinical time spent by myself addressing the patient's medical issues, reviewing all the data, and collaborating with patient's care team: 79 minutes. Charges/Coding Visit Charges Inpatient E&M: 89126 Init Hosp L3
[2025-04-05 15:43] LABS: Troponin T High Sens 2 HR 29 ng/L (<=14)
--- NOTE | 2025-04-05 15:57 | CASEMGMT ---
Social Work Initial assessment completed less than 30 days ago. Patients daughter confirmed no changes since last assessment. Daughter states that HH did come to home today for initial visit. Daughter states patient was using 2 L of O2 at home. Discharge plans uncertain at this time. Angela Stoddard MSW, [employer]
[2025-04-05 16:07] LABS: Procalcitonin 0.14 ng/mL (<=0.10)
[2025-04-05 16:54] LABS: Reflex Lactate? Y
[2025-04-05 19:39] LABS: Troponin T High Sens 4 HR 29 ng/L (<=14)
--- NOTE | 2025-04-05 19:45 | NURSING ---
Pt off floor for CTA. Hep Gtt maintained.
[2025-04-05] MEDS: Furosemide 20 MG/2 ML VIAL IV (20:12)
--- OUTSIDE RECORDS SUMMARY | 2025-04-05 20:17 | XMS RPT_ITS | CCD ---
Author Organization [facility] Care Team Providers Care Director Of Federal Sales Name Role Phone Blanka Haynes Unavailable Blanka Haynes Unavailable Rosalino Carmona MD Primary Care Provider Rosalino Carmona MD Primary Care Provider Rosalino Carmona MD Primary Care Provider Kristine, Dr. Rosalino Gonzalez Attending Unavail able Dr. Rosalino Carmona Primary Care Unavail able Rosalino Carmona MD Primary Care Provider Adri BRANTLEY, Cherelle Unavailable [phone] BREANNA CANSECO Referring Unavailable ROSALINO CARMONA Primary Care Unavailable Haagen PARTITION ASSEMBLY MACHINE OPERATOR.Keturah COFFEY Unavailable Suppan PARTITION ASSEMBLY MACHINE OPERATOR.ALEXX Orquidea A Unavailable [phone] Rosalino Carmona MD Primary Care Provider ROSALINO CARMONA Referring Unavailable ROSALINO CARMONA Primary Care Unavailable Suppan PARTITION ASSEMBLY MACHINE OPERATOR.ALEXX, Orquidea A Unavailable Suppan PARTITION ASSEMBLY MACHINE OPERATOR.ALEXX Orquidea A Unavailable Rosalino Carmona Referring Unavailable Kristine, Rosalino Primary Care Unavailable Demetrice Santiago Attending Unavail able Kristine, Rosalino Primary Care Unavailable [place], Rosalino Referring Unavailable Demetrice Santiago Attending Unavail able [place]chRosalino Primary Care Unavailable Roland Harley Attending Unavailable Demetrice Santiago Referring Unavail able Kristine, Rosalino Primary Care Unavailable Demetrice Santiago Attending Unavail able Demetrice Santiago Referring Unavail able Kristine, Rosalino Primary Care Unavailable Kristine, Rosalino Referring Unavailable Demetrice Santiago Attending Unavail able Dr. Rosalino Carmona MD Primary Care Physician [phone] Dr. Rosalino Carmona MD Referring Provider [phone] Demetrice Santiago Attending Physician ROSALINO CARMONA Attending [...] caffeine; Translations: [CAFFEINE] Drug Allergy 4 Intolerance Collusion Work Phone: Comment on above: PALPITATIONS (4 sources) NKDA drug allergy 3 [place] [facility] Work Phone: (1 source) ALLERGIES NOT ON FILE; Translations: [ALLERGIES NOT ON FILE] Propensity to adverse reactions (disorder) [facility] 2 Repository Medications Current Medications Medication [...] One tablet by mouth daily LOSARTAN POTASSIUM [id number] Jeremy Mchugh MD Comment on above: Take [...] TABS One tablet by mouth daily ASPIRIN 40909871157 Aixa Sue RN benzonatate 100 mg oral capsule (20 sources) Non-narcotic Antitussive Start: 04-18-2022 End: 12-27-2023 take 1 capsule by mouth every eight hours as needed benzonatate (TESSALON PERLES) 100 mg capsule Take 1 capsule by mouth three times daily as needed for cough. 30 capsule 1 04/18/2022 12/27/2023 Discontinued (Course of therapy completed) Comment on above: Take 1 capsule by mo [facility] three times daily as needed for [...] One tablet by mouth daily BIOTIN TABS 53495647310 Jeremy Mchugh MD Start: 02-15-2015 take 1 tablet by abe th once daily BIOTIN FORTE TABS One tablet by mouth daily BIOTIN TABS 77544811605 Jeremy Mchugh MD 24 hr dilTIAZem hydrochloride [...] th once daily CARDIZEM CD 180 MG PS99Q-FLL One tablet by mouth daily DILTIAZEM HCL COATED BEADS 52428544015 Jeremy Mchugh MD Start: 11-22-2011 take 1 tablet by abe th twice daily CARDIZEM CD 180 MG FP18X-YDV One tablet by mouth twice daily DILTIAZEM HCL [place]ATED [place] 19296416261 Demetrice Greer PA-C Start: 11-15-2011 take 1 tablet by abe th once daily CARDIZEM CD 240 MG XJ10E-MZZ One tablet by mouth daily DILTIAZEM HCL [place]ATED [place] 88065059144 Aixa Sue, RN hydrALAZINE hydrochloride 50 mg [...] One tablet by mouth daily LOSARTAN POTASSIUM-HCTZ 35612467207 Aixa Sue, RN levoFLOXacin 750 mg oral [...] th once daily TOPROL XL 25 MG SN07C-EUU One tablet by mouth daily METOPROLOL SUCCINATE 48307196620 Jeremy Mchugh MD Comment on above: Take 50 mg by mouth once daily. POTASSIUM CHLORIDE GILBERTO CR (4 sources) Start: 02-26-2012 take 1 tablet by mouth once daily KLOR-CON M20 20 MEQ CR-TABS One tablet by mouth daily POTASSIUM CHLORIDE GILBERTO CR 62522047124 Jeremy Mchugh MD Start: 02-26-2012 End: 07-11-2012 take 1 tablet by mouth once daily KLOR-CON M20 20 MEQ CR-TABS One tablet by mouth daily POTASSIUM CHLORIDE GILBERTO CR 39654097159 Ira Mosley RN Problems Active Problems Problem [...] sources) Long-term current use of anticoagulant; Translations: [shelter (current) use of anticoagulants] Onset: 02-15-2018 Episodic [...] Da te Episodic/Chronic Other aftercare (1 source) 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; Translations: [Chronic anticoagulation] [...] Free T4 [Mass/Vol] 1.4 ng/dL Normal 0.9-1.7 [facility] Comment on above: Order Comment: Speci men Type: BLOOD SPECIMENOrdering Facility: [facility] Address: [address] [place] [address] Performed By: #### 3 016-3, 3024-7 ####[facility] LABCLIA [id number] [place] [address] [place] TSH SerPl-aCncon 02-11-2025 TSH Qn 4.250 m[IU]/L High 0.270-4.200 [facility] Comment on above: Order Comment: Speci men Type: BLOOD SPECIMENOrdering Facility: [facility] Address: [address] [place] [address] Performed By: #### 3 016-3, 3024-7 ####[facility] LABCLIA [id number] [place] [address] [place] Cardiology Visit Reporton Cardiology Visit Report [facility] [address] [place], [place] [address] OFFICE VISIT Date of Service: 01/08/25 MR#: [id number] Acct: [id number] Name: TRICIA GRANADOS Rep #: [id number] : 1940 Provider: SAMANTHA Pendleton Age/Sex: 84/F Location: [facility] Status: Signed HPI HPI History of [...] 97 Intake Visit Reasons: 6 M FU Physician Intensivist Required: No Is patient in pain?: No [...] rate Rh (more content not included)... Normal [facility] Basic metabolic 2000 panelon 01-05-2025 Anion gap [Moles/Vol] 11 mmol/L Normal 8-15 [facility] Comment on above: Order Comment: Speci men Type: BLOOD SPECIMENOrdering Facility: [facility] Address: [address] [place] [address] Performed By: #### 1 91239, 69644-4 ####[facility] LABCLIA [id number] [place] [address] [place] Calcium [Mass/Vol] 9.2 mg/dL Normal 8.5-10.2 [facility] Comment on above: Order Comment: Speci anh Type: BLOOD SPECIMENOrdering Facility: [facility] Address: [address] [place] [address] Performed By: #### 1 91239, 71156-7 ####[facility] LABCLIA [id number] [place] [address] [place] Chloride [Moles/Vol] 106 mmol/L Normal 98-107 [facility] Comment on above: Order Comment: Ieshai men Type: BLOOD SPECIMENOrdering Facility: [facility] Address: [address] [place] [address] Performed By: #### 1 91239, 09483-6 ####[facility] LABCLIA [id number] [place] [id number] [place] CO2 [Moles/Vol] 21 mmol/L Low 22-30 [facility] Comment on above: Order Comment: Speci men Type: BLOOD SPECIMENOrdering Facility: [facility] Address: [address] [place] [address] Performed By: #### 1 9123-9, 91543-4 ####[facility] LABIA [id number] [place] [address] [place] Creatinine [Mass/Vol] 1.04 mg/dL High 0.58-0.96 [facility] Comment on above: Order Comment: Speci men Type: BLOOD SPECIMENOrdering Facility: [facility] Address: [address] [place] [address] Performed By: #### 1 9123-9, 89118-6 ####[facility] LABIA [id number] [place] [address] [place] eGFRcr SerPlBld CKD-EPI 2020 53 mL/min/1.73m??? Low >=60 [facility] Comment on above: Order Comment: Speci men Type: BLOOD SPECIMENOrdering Facility: [facility] Address: [address] [place] [address] Result Comment: Lilo mated Glomerular Filtration Rate [...] actual GFR. Performed By: #### 1 9123-9, 50923-5 ####[facility] LABIA [id number] [place] [id number] [place] Glucose [Mass/Vol] 92 mg/dL Normal 74-99 [facility] Comment on above: Order Comment: Speci men Type: BLOOD SPECIMENOrdering Facility: [facility] Address: [address] [place] [address] Result Comment: The [place] Diabetes Association (ADA) provides guidance for cutoff [...] Standards of Medical Care in Diabetes 2016, [place] [employer]. Diabetes Care. 2016.39(Suppl 1). Performed By: #### 1 9123-9, 88751-2 ####[facility] LABCLIA [id number] [place] [address] [place] Potassium [Moles/Vol] 4.4 mmol/L Normal 3.7-5.1 [facility] Comment on above: Order Comment: Speci men Type: BLOOD SPECIMENOrdering Facility: [facility] Address: [address] [place] [address] Performed By: #### 1 9123-9, 19381-4 ####[facility] LABIA [id number] [place] [id number] [place] Sodium [Moles/Vol] 138 mmol/L Normal 136-144 [facility] Comment on above: Order Comment: Speci men Type: BLOOD SPECIMENOrdering Facility: [facility] Address: [address] [place] [address] Performed By: #### 1 9123-9, 70868-5 ####[facility] LABIA [id number] [place] [id number] [place] Urea nitrogen [Mass/Vol] 16 mg/dL Normal 7-21 [facility] Comment on above: Order Comment: Speci men Type: BLOOD SPECIMENOrdering Facility: [facility] Address: [address] [place] [address] Performed By: #### 1 9123-9, 17559-8 ####[facility] LABIA [id number] [place] [address] [place] Magnesium SerPl-mCncon 01-05 Magnesium [Mass/Vol] 2.1 mg/dL Normal 1.7-2.3 [facility] Comment on above: Order Comment: Speci men Type: BLOOD SPECIMENOrdering Facility: [facility] Address: [address] [place] [address] Performed By: #### 1 9123-9, 09361-3 ####[facility] LABIA [id number] [place] [address] [place] CNOVon 12-28-2024 CNOV Office Visit (ORTHWS ) TRICIA GRANADOS ([id number]) 1940 F Date Time Provider Department 12/28/24 [...] these instructions. Informed Consent Consent Obtained: Verbal [place] Protocol A moment to CARE was completed. [...] hospitalized patients) applicable. Referring Provider: BREANNA CANSECO [[id number]] Allergies As of Date: 12/28/2024 Noted Allergy [...] [M17.0] Order(s):Large Joint Arthro/Inj: bilateral knee joints [TMD428] Order #: [id number] [] betamethasone acetate-betamethasone sodium phosphate 6 mg [...] Status:Closed by BREANNA CANSECO on 12/28/24 Normal [facility] Large Joint Arthro/Inj: bila teral [...] these instructions. Informed Consent Consent Obtained: Verbal [place] Protocol A moment to CARE was completed. [...] the bedside nurse for hospitalized patients) applicable. [facility] Basic metabolic 2000 panelon 12-18-2024 Anion gap [Moles/Vol] 13 mmol/L Normal 8-15 [facility] Comment on above: Order Comment: Tessa kamara Type: BLOOD SPECIMENOrdering Facility: [facility] Address: [address] [place] [address] Performed By: #### T 4FTI, 3053-6, 43355-1 ####[facility] LABCLIA [id number] [place] [address] [place] Calcium [Mass/Vol] 9.5 mg/dL Normal 8.5-10.2 [facility] Comment on above: Order Comment: Tessa kamara Type: BLOOD SPECIMENOrdering Facility: [facility] Address: [address] [place] [address] Performed By: #### T 4FTI, 305-6, 69564-6 ####[facility] LABCLIA [id number] [address] [address] [place] Chloride [Moles/Vol] 100 mmol/L Normal 98-107 [facility] Comment on above: Order Comment: Speci men Type: BLOOD SPECIMENOrdering Facility: [facility] Address: [address] [place] [address] Performed By: #### T 4FTI, 30506-25, 75647-6 ####[facility] LABCLIA [id number] [place] [id number] [place] CO2 [Moles/Vol] 18 mmol/L Low 22-30 [facility] Comment on above: Order Comment: Speci men Type: BLOOD SPECIMENOrdering Facility: [facility] Address: [address] [place] [address] Performed By: #### T 4FTI, 305-, 62866-8 ####[facility] LABIA [id number] [place] [id number] [place] Creatinine [Mass/Vol] 1.08 mg/dL High 0.58-0.96 [facility] Comment on above: Order Comment: Speci men Type: BLOOD SPECIMENOrdering Facility: [facility] Address: [address] [place] [address] Performed By: #### T 4FTI, 30506-25, 66881-1 ####[facility] LABIA [id number] [address] [address] [place] eGFRcr SerPlBld CKD-EPI 2020 51 mL/min/1.73m??? Low >=60 [facility] Comment on above: Order Comment: Speci men Type: BLOOD SPECIMENOrdering Facility: [facility] Address: [address] [place] [address] Result Comment: Lilo mated Glomerular Filtration Rate [...] GFR. Performed By: #### T 4FLAURA, 3052-, 60154-5 ####[facility] LABCLIA [id number] [place] [id number] [place] Glucose [Mass/Vol] 102 mg/dL High 74-99 [facility] Comment on above: Order Comment: Speci men Type: BLOOD SPECIMENOrdering Facility: [facility] Address: [address] [place] [address] Result Comment: The [place] Diabetes Association (ADA) provides guidance for cutoff [...] Standards of Medical Care in Diabetes 2016, [place] [employer]. Diabetes Care. 2016.39(Suppl 1). Performed By: #### T 4FLUARA, 3052-09, 41670-1 ####[facility] LABIA [id number] [place] [id number] [place] Potassium [Moles/Vol] 4.2 mmol/L Normal 3.7-5.1 [facility] Comment on above: Order Comment: Tessa kamara Type: BLOOD SPECIMENOrdering Facility: [facility] Address: [address] [place] [address] Performed By: #### T 4FLAURA, 3052-09, 27788-9 ####[facility] LABIA [id number] [address] [place] [address] [place] Sodium [Moles/Vol] 131 mmol/L Low 136-144 [facility] Comment on above: Order Comment: Speci men Type: BLOOD SPECIMENOrdering Facility: [facility] Address: [address] [place] [address] Performed By: #### T 4FLAURA, 3056, 67992-3 ####[facility] LABCLIA [id number] [address], [place] [address] [place] Urea nitrogen [Mass/Vol] 11 mg/dL Normal 7-21 [facility] Comment on above: Order Comment: Speci men Type: BLOOD SPECIMENOrdering Facility: [facility] Address: [address] [place] [address] Performed By: #### T 4FLAURA, 3052-09, 06081-3 ####[facility] LABCLIA [id number] [address], [address] STATES OF [facility] T3 SerPl-mCncon 12-18-2024 T3 [Mass/Vol] 122 ng/dL Normal 79-165 [facility] Comment on above: Order Comment: Speci men Type: BLOOD SPECIMENOrdering Facility: [facility] Address: [address] [place] [address] Performed By: #### T 4FLAURA, 3052-09, 70338-8 ####[facility] LABCLIA [id number] [address], [facility]95 [place] T4/FTI/T4Uon 12-18-2024 FTI 8.9 ug/dL Normal 5.3-10.8 [facility] Comment on above: Order Comment: Speci men Type: BLOOD SPECIMENOrdering Facility: [facility] Address: [address] [place] [address] Performed By: #### T 4FLAURA, 3052-09, 10837-6 ####[facility] LABCLIA [id number] [address], [facility] [place] T4 [Mass/Vol] 7.6 ug/dL Normal 5.5-10.2 [facility] Comment on above: Order Comment: Speci men Type: BLOOD SPECIMENOrdering Facility: [facility] Address: [address] [place] [address] Performed By: #### T 4FTI, 3053-6, 08109-5 ####[facility] LABCLIA [id number] [address] OF [facility] T4 uptake [Mass/Vol] 0.85 Low 0.91-1.19 [facility] Comment on above: Order Comment: Speci men Type: BLOOD SPECIMENOrdering Facility: [facility] Address: [address] [place] [address] Performed By: #### T 4FTI, 3053-6, 17331-5 ####[facility] LABCLIA [id number] [place] [address] [place] TSH SerPl-aCncon 12-18-2024 TSH Qn 5.320 m[IU]/L High 0.270-4.200 [facility] Comment on above: Order Comment: Speci men Type: BLOOD SPECIMENOrdering Facility: [facility] Address: [address] [place] [address] Performed By: #### 3 016-3 ####[facility] LABCLIA [id number] [place] [address] [place] [facility] TRICIA GRANADOS ([id number]) 1940 F Date Time Provider Department 12/10/24 ROSALINO CARMONA [facility] During your visit today, we recorded [...] [E03.9] Order(s):BASIC METABOLIC PANEL [SQBMP] Order #: [id number] FUTURE THYROID STIMULATING HORMONE [SQTSH] Order #: [id number] FUTURE T4/FTI/T4U [JQC2HNO] Order #: [id number] FUTURE T3 [SQT3] Order #: [id number] FUTURE Prescriptions as of 12/10/2024 - hydrALAZINE [...] Status:Closed by GREGORIA ANDERSON on 12/10/24 Normal [facility] CBC W Auto Differential pane l (Bld)on 12-09-2024 Basophils (Bld) [#/Vol] 0.07 10*3/uL Normal <0.11 [facility] Comment on above: Order Comment: Speci men Type: BLOOD SPECIMENOrdering Facility: [facility] Address: [address] [place] [address] Performed By: #### 5 7021-8 ####[facility] LABCLIA [id number] [place] [address] [place] Basophils/100 WBC (Bld) 0.8 % Normal [facility] Comment on above: Order Comment: Speci men Type: BLOOD SPECIMENOrdering Facility: [facility] Address: [address] [place] [address] Performed By: #### 5 7021-8 ####[facility] LABCLIA [id number] [place] [address] [place] Differential cell count method Nom (Bld) Auto Normal [facility] Comment on above: Order Comment: Speci men Type: BLOOD SPECIMENOrdering Facility: [facility] Address: [address] [place] [address] Performed By: #### 5 7021-8 ####[facility] LABCLIA [id number] [place] [address] [place] Eosinophils (Bld) [#/Vol] 0.26 10*3/uL Normal <0.46 [facility] Comment on above: Order Comment: Speci men Type: BLOOD SPECIMENOrdering Facility: [facility] Address: [address] [place] [address] Performed By: #### 5 7021-8 ####[facility] LABCLIA [id number] [place] [address] [place] Eosinophils/100 WBC (Bld) 2.8 % Normal [facility] Comment on above: Order Comment: Speci men Type: BLOOD SPECIMENOrdering Facility: [facility] Address: [address] [place] [address] Performed By: #### 5 7021-8 ####[facility] LABCLIA [id number] [address], [place] [address] [place] Erythrocyte distribution width (RBC) [Ratio] 13.3 % Normal 11.5-15.0 [facility] Comment on above: Order Comment: Speci men Type: BLOOD SPECIMENOrdering Facility: [facility] Address: [address] [place] [address] Performed By: #### 5 7021-8 ####[facility] LABCLIA [id number] [address], [place] [address] [place] Hematocrit (Bld) [Volume fraction] 36.0 % Normal 36.0-46.0 [facility] Comment on above: Order Comment: Speci men Type: BLOOD SPECIMENOrdering Facility: [facility] Address: [address] [place] [address] Performed By: #### 5 7021-8 ####[facility] LABCLIA [id number] [address], [facility]95 [place] Hemoglobin (Bld) [Mass/Vol] 11.8 g/dL Normal 11.5-15.5 [facility] Comment on above: Order Comment: Speci men Type: BLOOD SPECIMENOrdering Facility: [facility] Address: [address] [place] [address] Performed By: #### 5 7021-8 ####[facility] LABCLIA [id number] [address], [facility]95 [place] Immature granulocytes (Bld) [#/Vol] 0.17 10*3/uL High <0.10 [facility] Comment on above: Order Comment: Speci men Type: BLOOD SPECIMENOrdering Facility: [facility] Address: [address] [place] [address] Performed By: #### 5 7021-8 ####[facility] LABCLIA [id number] [address] [place] Immature granulocytes/100 WBC (Bld) 1.9 % Normal [facility] Comment on above: Order Comment: Speci men Type: BLOOD SPECIMENOrdering Facility: [facility] Address: [address] [place] [address] Performed By: #### 5 7021-8 ####[facility] LABCLIA [id number] [place] [address] [place] Lymphocytes (Bld) [#/Vol] 1.79 10*3/uL Normal 1.00-4.00 [facility] Comment on above: Order Comment: Speci men Type: BLOOD SPECIMENOrdering Facility: [facility] Address: [address] [place] [address] Performed By: #### 5 7021-8 ####[facility] LABCLIA [id number] [place] [address] [place] Lymphocytes/100 WBC (Bld) 19.5 % Normal [facility] Comment on above: Order Comment: Speci men Type: BLOOD SPECIMENOrdering Facility: [facility] Address: [address] [place] [address] Performed By: #### 5 7021-8 ####[facility] LABCLIA [id number] [place] [id number] [place] MCH (RBC) [Entitic mass] 29.7 pg Normal 26.0-34.0 [facility] Comment on above: Order Comment: Speci men Type: BLOOD SPECIMENOrdering Facility: [facility] Address: [address] [place] [address] Performed By: #### 5 7021-8 ####[facility] LABCLIA [id number] [place] [address] [place] MCHC (RBC) [Mass/Vol] 32.8 g/dL Normal 30.5-36.0 [facility] Comment on above: Order Comment: Speci men Type: BLOOD SPECIMENOrdering Facility: [facility] Address: [address] [place] [address] Performed By: #### 5 7021-8 ####[facility] LABIA [id number] [place] [address] [place] MCV (RBC) [Entitic vol] 90.7 fL Normal 80.0-100.0 [facility] Comment on above: Order Comment: Speci men Type: BLOOD SPECIMENOrdering Facility: [facility] Address: [address] [place] [address] Performed By: #### 5 7021-8 ####[facility] LABIA [id number] [place], [place] [address] [place] Monocytes (Bld) [#/Vol] 0.84 10*3/uL Normal <0.87 [facility] Comment on above: Order Comment: Speci men Type: BLOOD SPECIMENOrdering Facility: [facility] Address: [address] [place] [address] Performed By: #### 5 7021-8 ####[facility] LABIA [id number] [place] [address] [place] Monocytes/100 WBC (Bld) 9.2 % Normal [facility] Comment on above: Order Comment: Speci men Type: BLOOD SPECIMENOrdering Facility: [facility] Address: [address] [place] [address] Performed By: #### 5 7021-8 ####[facility] LABCLIA [id number] [place] [address] [place] Neutrophils (Bld) [#/Vol] 6.03 10*3/uL Normal 1.45-7.50 [facility] Comment on above: Order Comment: Speci men Type: BLOOD SPECIMENOrdering Facility: [facility] Address: [address] [place] [address] Performed By: #### 5 7021-8 ####[facility] LABCLIA [id number] [place] [id number] [place] Neutrophils/100 WBC (Bld) 65.8 % Normal [facility] Comment on above: Order Comment: Speci men Type: BLOOD SPECIMENOrdering Facility: [facility] Address: [address] [place] [address] Performed By: #### 5 7021-8 ####[facility] LABCLIA [id number] [place] [address] [place] Nucleated RBC (Bld) [#/Vol] 10*3/uL Normal <0.01 [facility] Comment on above: Order Comment: Speci men Type: BLOOD SPECIMENOrdering Facility: [facility] Address: [address] [place] [address] Performed By: #### 5 7021-8 ####[facility] LABCLIA [id number] [place] [address] [place] Nucleated RBC/100 WBC (Bld) [Ratio] 0.0 /100 WBC Normal [facility] Comment on above: Order Comment: Speci men Type: BLOOD SPECIMENOrdering Facility: [facility] Address: [address] [place] [address] Performed By: #### 5 7021-8 ####[facility] LABCLIA [id number] [place] [id number] [place] Platelet mean volume (Bld) [Entitic vol] 11.6 fL Normal 9.0-12.7 [facility] Comment on above: Order Comment: Speci men Type: BLOOD SPECIMENOrdering Facility: [facility] Address: [address] [place] [address] Performed By: #### 5 7021-8 ####[facility] LABCLIA [id number] [address] [address] [place] Platelets (Bld) [#/Vol] 292 10*3/uL Normal 150-400 [facility] Comment on above: Order Comment: Speci men Type: BLOOD SPECIMENOrdering Facility: [facility] Address: [address] [place] [address] Performed By: #### 5 7021-8 ####[facility] LABIA [id number] [place] [address] [place] RBC (Bld) [#/Vol] 3.97 10*6/uL Normal 3.90-5.20 [facility] Comment on above: Order Comment: Speci men Type: BLOOD SPECIMENOrdering Facility: [facility] Address: [address] [place] [address] Performed By: #### 5 7021-8 ####[facility] [id number] [place] [address] [place] WBC (Bld) [#/Vol] 9.16 10*3/uL Normal 3.70-11.00 [facility] Comment on above: Order Comment: Speci men Type: BLOOD SPECIMENOrdering Facility: [facility] Address: [address] [place] [address] Performed By: #### 5 7021-8 ####[facility] LABIA [id number] [place] [id number] [place] Comprehensive metabolic 2000 panelon 12-09-2024 Albumin [Mass/Vol] 3.8 g/dL Low 3.9-4.9 [facility] Comment on above: Order Comment: Speci men Type: BLOOD SPECIMENOrdering Facility: [facility] Address: [address] [place] [address] Performed By: #### 3 016-3, 01204-6, 61940-2 ####[facility] LABCLIA [id number] [place] [id number] [place] ALP [Catalytic activity/Vol] 82 U/L Normal 34-123 [facility] Comment on above: Order Comment: Speci men Type: BLOOD SPECIMENOrdering Facility: [facility] Address: [address] [place] [address] Performed By: #### 3 016-3, 80619-0, 43211-9 ####[facility] LABCLIA [id number] [place] [address] [place] ALT [Catalytic activity/Vol] 8 U/L Normal 7-38 [facility] Comment on above: Order Comment: Speci men Type: BLOOD SPECIMENOrdering Facility: [facility] Address: [address] [place] [address] Performed By: #### 3 016-3, 54900-8, 84924-2 ####[facility] LABCLIA [id number] [place] [address] [place] Anion gap [Moles/Vol] 11 mmol/L Normal 8-15 [facility] Comment on above: Order Comment: Speci men Type: BLOOD SPECIMENOrdering Facility: [facility] Address: [address] [place] [address] Performed By: #### 3 016-3, 06170-5, 39487-3 ####[facility] LABCLIA [id number] [place] [address] [place] AST [Catalytic activity/Vol] 15 U/L Normal 13-35 [facility] Comment on above: Order Comment: Speci men Type: BLOOD SPECIMENOrdering Facility: [facility] Address: [address] [place] [address] Performed By: #### 3 016-3, 36492-3, 33172-3 ####[facility] LABCLIA [id number] [address] [address] [place] Bilirubin [Mass/Vol] 1.1 mg/dL Normal 0.2-1.3 [facility] Comment on above: Order Comment: Speci men Type: BLOOD SPECIMENOrdering Facility: [facility] Address: [address] [place] [address] Performed By: #### 3 016-3, , ####[facility] LABCLIA [id number] [address] [address] [place] Calcium [Mass/Vol] 9.6 mg/dL Normal 8.5-10.2 [facility] Comment on above: Order Comment: Speci men Type: BLOOD SPECIMENOrdering Facility: [facility] Address: [address] [place] [address] Performed By: #### 3 016-3, , ####[facility] LABCLIA [id number] [place] [address] [place] Chloride [Moles/Vol] 102 mmol/L Normal 98-107 [facility] Comment on above: Order Comment: Speci men Type: BLOOD SPECIMENOrdering Facility: [facility] Address: [address] [place] [address] Performed By: #### 3 016-3, , ####[facility] LABCLIA [id number] [place] [id number] [place] CO2 [Moles/Vol] 21 mmol/L Low 22-30 [facility] Comment on above: Order Comment: Speci men Type: BLOOD SPECIMENOrdering Facility: [facility] Address: [address] [place] [address] Performed By: #### 3 016-3, , ####[facility] LABCLIA [id number] [address] [address] [place] Creatinine [Mass/Vol] 1.03 mg/dL High 0.58-0.96 [facility] Comment on above: Order Comment: Speci men Type: BLOOD SPECIMENOrdering Facility: [facility] Address: [address] [place] [address] Performed By: #### 3 016-3, 40622-3, 61353-2 ####[facility] LABIA [id number] [place] [address] [place] eGFRcr SerPlBld CKD-EPI 2020 54 mL/min/1.73m??? Low >=60 [facility] Comment on above: Order Comment: Tessa men Type: BLOOD SPECIMENOrdering Facility: [facility] Address: [address] [place] [address] Result Comment: Lilo mated Glomerular Filtration Rate [...] actual GFR. Performed By: #### 3 016-3, 91460-2, 07701-6 ####[facility] LABCLIA [id number] [place] [id number] [place] Glucose [Mass/Vol] 97 mg/dL Normal 74-99 [facility] Comment on above: Order Comment: Tessa kamara Type: BLOOD SPECIMENOrdering Facility: [facility] Address: [address] [place] [address] Result Comment: The [place] Diabetes Association (ADA) provides guidance for cutoff [...] Standards of Medical Care in Diabetes 2016, [place] [employer]. Diabetes Care. 2016.39(Suppl 1). Performed By: #### 3 016-3, 62388-4, 32804-4 ####[facility] LABCLIA [id number] [address] [address] [place] Potassium [Moles/Vol] 4.6 mmol/L Normal 3.7-5.1 [facility] Comment on above: Order Comment: Speci men Type: BLOOD SPECIMENOrdering Facility: [facility] Address: [address] [place] [address] Performed By: #### 3 016-3, 25699-6, 98361-8 ####[facility] LABCLIA [id number] [place] [address] [place] Protein [Mass/Vol] 6.9 g/dL Normal 6.3-8.0 [facility] Comment on above: Order Comment: Speci men Type: BLOOD SPECIMENOrdering Facility: [facility] Address: [address] [place] [address] Performed By: #### 3 016-3, 49293-6, 33033-7 ####[facility] LABIA [id number] [place] [id number] [place] Sodium [Moles/Vol] 134 mmol/L Low 136-144 [facility] Comment on above: Order Comment: Speci men Type: BLOOD SPECIMENOrdering Facility: [facility] Address: [address] [place] [address] Performed By: #### 3 016-3, 18973-0, 21575-8 ####[facility] LABIA [id number] [address] [address] [place] Urea nitrogen [Mass/Vol] 15 mg/dL Normal 7-21 [facility] Comment on above: Order Comment: Speci men Type: BLOOD SPECIMENOrdering Facility: [facility] Address: [address] [place], [place] [address] Performed By: #### 3 016-3, 51606-8, 60788-6 ####[facility] LABCLIA [id number] [address] [address] [facility] [place] Lipid 1996 panelon 5 Cholesterol [Mass/Vol] 149 mg/dL Normal <200 [facility] Comment on above: Order Comment: Speci men Type: BLOOD SPECIMENOrdering Facility: [facility] Address: [address] [place] [address] Result Comment: <200 mg/dL, Desirable 200-239 mg/dL, Borderline high >239 mg/dL, High Performed By: #### 3 016-3, , ####[facility] LABCLIA [id number] [address] [place] Cholesterol in HDL [Mass/Vol] 47 mg/dL Normal >39 [facility] Comment on above: Order Comment: Speci men Type: BLOOD SPECIMENOrdering Facility: [facility] Address: [address] [place] [address] Result Comment: 40-5 9 mg/dL, Acceptable >59 mg/dL, High: Negative risk factor for coronary heart disease <40 mg/dL, Low: Positive risk factor for coronary heart disease Performed By: #### 3 016-3, , ####[facility] LABCLIA [id number] [address] [facility] Cholesterol in LDL [Mass/Vol] 81 mg/dL Normal <100 [facility] Comment on above: Order Comment: Speci men Type: BLOOD SPECIMENOrdering Facility: [facility] Address: [address] [place] [address] Result Comment: <100 mg/dL, Optimal 100-129 mg/dL, Near optimal/above optimal 130-159 mg/dL, Borderline high 160-189 mg/dL, High >189 mg/dL, Very high Secondary prevention optimal LDL Cholesterol levels are recommended to be <70 mg/dL LDL cholesterol is calculated using the Good-NIH equation. Performed By: #### 3 016-3, 81425-4, 96738-8 ####[facility] LABCLIA [id number] [place] [id number] [place] Cholesterol in LDL/Cholesterol in HDL [Mass ratio] 1.72 {ratio} Normal <2.54 [facility] Comment on above: Order Comment: Speci men Type: BLOOD SPECIMENOrdering Facility: [facility] Address: [address] [place] [address] Result Comment: Refe rence: 1. National Cholesterol Education Program ATP III Guideline At-A-Glance Quick Desk Reference: National Heart, Lung, and Blood [place]. National Institutes of Health. 2001: NIH Publication No. 01-3305. 2. An International Atherosclerosis Society position paper: global recommendations for the management of dyslipidemia: executive summary, Atherosclerosis. 2014: 232(2):410-413. Performed By: #### 3 016-3, 57481-0, ####[facility] LABCLIA [id number] [place] [address] [place] Cholesterol in VLDL [Mass/Vol] 18 mg/dL Normal <30 [facility] Comment on above: Order Comment: Speci men Type: BLOOD SPECIMENOrdering Facility: [facility] Address: [address] [place] [address] Performed By: #### 3 016-3, 49682-8, ####[facility] LABCLIA [id number] [place] [id number] [place] Cholesterol non HDL [Mass/Vol] 102 mg/dL Normal <130 [facility] Comment on above: Order Comment: Speci men Type: BLOOD SPECIMENOrdering Facility: [facility] Address: [address] [place] [address] Result Comment: <130 mg/dL, Optimal 130-159 mg/dL, Near optimal/above optimal 160-189 mg/dL, Borderline high 190-219 mg/dL, High >219 mg/dL, Very high Secondary prevention optimal non HDL Cholesterol levels are recommended to be <100 mg/dL Performed By: #### 3 016-3, 10850-3, ####[facility] LABIA [id number] [address] [address] [place] Cholesterol.total/Ch olesterol in HDL [Mass ratio] 3.17 {ratio} Normal <5.10 [facility] Comment on above: Order Comment: Speci men Type: BLOOD SPECIMENOrdering Facility: [facility] Address: [address] [place] [address] Performed By: #### 3 016-3, , ####[facility] [id number] [place] [address] [place] FASTING TIME 12 hrs Normal [facility] Comment on above: Order Comment: Speci men Type: BLOOD SPECIMENOrdering Facility: [facility] Address: [address] [place] [address] Performed By: #### 3 016-3, , ####[facility] LABIA [id number] [address], [place] [address] [place] Triglyceride [Mass/Vol] 119 mg/dL Normal <150 [facility] Comment on above: Order Comment: Speci men Type: BLOOD SPECIMENOrdering Facility: [facility] Address: [address] [place] [address] Result Comment: <150 mg/dL, Normal 150-199 mg/dL, Borderline high 200-499 mg/dL, High >499 mg/dL, Very high Performed By: #### 3 016-3, 26759-7, ####[facility] LABIA [id number] [place] [id number] [place] TSH SerPl-aCncon 12-09-2024 TSH Qn 5.210 m[IU]/L High 0.270-4.200 [facility] Comment on above: Order Comment: Speci men Type: BLOOD SPECIMENOrdering Facility: [facility] Address: [address] [place] [address] Performed By: #### 3 016-3, 29544-0, 58083-9 ####[facility] MELODY [id number] THEA SADLER [place] [id number] [facility] CNOVon 12-02-2024 CNOV Office Visit (FAMPWS ) TRICIA GRANADOS ([id number]) 1940 F Date Time Provider Department 12/02/24 8:40 AM ROSALINO CARMONA FAMPWS During your visit today, we recorded the following information about you: Pulse Blood pressure Weight 47/minute 110/60 85.5 kg Rosalino Carmona MD 12/02/2024 8:54 AM Signed - Start amoxicillin (mid-range dose) for 7 days for your sinus infection; prescription sent to [facility] in [place]. - Refill your amlodipine, hydralazine, and metoprolol [...] good dent (more content not included)... Normal [facility] CNOVon 09-21-2024 CNOV Office Visit (MARISOL ) TRICIA GRANADOS ([id number]) 1940 F Date Time Provider Department 09/21/24 [...] these instructions. Informed Consent Consent Obtained: Verbal [place] Protocol A moment to CARE was completed. [...] [M17.0] Order(s):Large Joint Arthro/Inj: bilateral knee joints [UPP320] Order #: [id number] [] betamethasone acetate-betamethasone sodium phosphate 6 mg [...] INJECT* 09/21/2024 (more content not included)... Normal [facility] Large Joint Arthro/Inj: bila teral [...] these instructions. Informed Consent Consent Obtained: Verbal [place] Protocol A moment to CARE was completed. [...] the bedside nurse for hospitalized patients) applicable. [facility] Cardiology Visit Reporton Cardiology Visit Report [facility] [address] [place] [address] OFFICE VISIT Date of Service: 07/10/24 MR#: [id number] Acct: [id number] Name: TRICIA GRANADOS Rep #: [id number] : 1940 Provider: SAMANTHA Pendleton Age/Sex: 83/F Location: [facility] Status: Signed HPI HPI History of [...] (%) 99 Intake Visit Reasons: 4 M Physician Intensivist Required: No Is patient in pain?: No [...] x3 an (more content not included)... Normal [facility] CNOVon 06-08-2024 CNOV Office Visit (ORTHWS ) TRICIA GRANADOS ([id number]) 1940 F Date Time Provider Department 06/08/24 [...] knee joints Informed Consent Consent Obtained: Verbal [place] Protocol A moment to CARE was completed. [...] [M17.0] Order(s):Large Joint Arthro/Inj: bilateral knee joints [ZRC893] Order #: [id number] [] betamethasone acetate-betamethasone sodium phosphate 6 mg [...] Encounter Status:Closed by BREANNA CANSECO on 06/08/24 [facility] Large Joint Arthro/Inj: bila teral knee jointson 06-08-2024 Breanna Canseco PA -C 06/08/2024 8:32 AM Large Joint Arthro/Inj: bilateral knee joints Informed Consent Consent Obtained: Verbal [place] Protocol A moment to CARE was completed. [...] Plan of Care Visit completed when applicable [facility] CNOVon 05-26-2024 CNOV Office Visit (FAMPWS ) TRICIA GRANADOS ([id number]) 1940 F Date Time Provider Department 05/26/24 8:00 AM [facility] your visit today, we recorded the following information about you: Pulse Blood pressure Weight Height 75/minute 130/58 88.5 kg 1.676 m Orquidea Robertson, PARTITION ASSEMBLY MACHINE OPERATOR.CARTON MACHINE OPERATOR 05/26/2024 9:04 AM Addendum This is a [...] Date Reviewed: (more content not included)... Normal [facility] Ovi 05-05-2024 JANAE Telephone (LAWR[place]) TRICIA GRANADOS ([id number]) 1940 F Date Time Provider Department 05/05/24 [facility] During your visit today, we recorded the following information about you: Gregoria Anderson, RN 05/05/2024 4:33 PM Signed Pt called in and reports she started 2 new heart medications in February Amlodipine and Hydralazine, and she increased her Metoprolol. She said the Bath Solution Maker discontinued her Diltiazem. She though maybe these medication had given her diarrhea, but her Bath Solution Maker didn't think so and told her to [...] for Visit: Patient Update [1234] Patient Question [7627] Prescriptions as of 05/05/2024 - amLODIPine (NORVASC) [...] Encounter Status:Closed by CINDY AGUIAR on 05/05/24 [facility] CNOVon 04-28-2024 CNOV Office Visit (FAMPWS ) TRICIA GRANADOS ([id number]) 1940 F Date Time Provider Department 04/28/24 2:40 PM [facility] During your visit today, we recorded the [...] or questio (more content not included)... Normal [facility] TRICIA GRANADOS ([id number]) 1940 F Date Time Provider Department 04/28/24 [...] Encounter Status:Closed by GREGORIA ANDERSON on 04/29/24 [facility] BI MAMMO BILATERAL SCREENING TOMOSYNTHESISon 04-10-2024 BI MAMMO BILATERAL SCREENING TOMOSYNTHESIS Interpreted By: Renard Allen, STUDY: BI MAMMO BILATERAL SCREENING TOMOSYNTHESIS; 04/10/2024 8:47 am ACCESSION NUMBER(S): [id number] ORDERING CLINICIAN: ROSALINO CARMONA INDICATION: Screening. ,Z12.31 [...] any future breast imaging appointments, please call [phone] ([phone]). MACRO: None Signed by: Renard Allen 04/10/2024 9:21 AM Dictation workstation: [id number] [facility] Ovi 04-10-2024 [facility] TRICIA GRANADOS ([id number]) 1940 F Date Time Provider Department 04/10/24 ROSALINO CARMONA [facility] During your visit today, we recorded the following information about you: Harmeet Carmona LPN 04/10/2024 10:40 AM Signed See mammo results: Scan on 04/10/2024 9:25 AM by Provider, ILEANA ArmendarizC: Mammography Rosalino Carmona MD 04/10/2024 10:58 AM Signed mammogram Allergies As of Date: 04/10/2024 Noted Allergy Reaction CAFFEINE 02/16/2014 5 - Intolerance Date Reviewed: 01/24/2024 Reviewed by: Orquidea Robertson APRN.[facility] - Fully Assessed Reason for Visit: Results [...] Status:Closed by ROSALINO CARMONA on 04/10/24 Normal [facility] DBT Breast - bilateralon No mammographic evidence of malignancy. BI-RADS CATEGORY: BI-RADS Category: 2 Benign. Recommendation: Annual Screening. Recommended Date: 1 Year. Laterality: Bilateral. For any future breast imaging appointments, please call [phone]). MACRO: None Signed by: Renard Allen 04/10/2024 9:21 AM Dictation workstation: [id number] [facility] Interpreted By: Renard Allen, STUDY: BI MAMMO BILATERAL SCREENING TOMOSYNTHESIS; 04/10/2024 8:47 am ACCESSION NUMBER(S): [id number] ORDERING CLINICIAN: ROSALINO CARMONA INDICATION: Screening. ,Z12. Encounter for screening mammogram for malignant neoplasm of breast COMPARISON: 04/03/2022, 04/04/2023 FINDINGS: 2D and tomosynthesis images were reviewed at 1 mm slice thickness. Density: The breasts are almost entirely fatty. No suspicious masses or calcifications are identified. Dystrophic calcifications are present in both breasts. CAD was utilized. [facility] Renard Allen MD - 04/10/2024 Interpreted By: Renard Allen, STUDY: BI MAMMO BILATERAL SCREENING TOMOSYNTHESIS; 04/10/2024 8:47 am ACCESSION NUMBER(S): [id number] ORDERING CLINICIAN: ROSALINO CARMONA INDICATION: Screening. ,Z12.31 [...] any future breast imaging appointments, please call [phone] ([phone]). MACRO: None Signed by: Renard Allen 04/10/2024 9:21 AM Dictation workstation: [id number] [facility] Work Phone: Radiology Study observation (narrative) [facility] Work Phone: DBT Breast - bilateralOrdere d By: Renard Allen on 04-10-2024 [facility] Work Phone: Ovi 03-25-2024 [facility]) TRICIA GRANADOS ([id number]) 1940 F Date Time Provider Department 03/25/24 ROSALINO CARMONA [facility] During your visit today, we recorded the following information about you: Juliann Caban LPN 03/25/2024 1:19 PM Signed Patient calling she received her reminder to get mamm order. She does at [facility] in [place]. Last year was done on 04/09/2023. She wants a 3 D mamm faxed to [phone]. Pending order. Please advise Harmeet Carmona LPN 03/26/2024 4:34 PM Signed Order faxed to as requested. Sent via [employer]. Patient notified. Allergies As of Date: 03/25/2024 Noted Allergy Reaction CAFFEINE 02/16/2014 5 - Intolerance Date Reviewed: 01/24/2024 Reviewed by: Orquidea Robertson APRN.CARTON MACHINE OPERATOR - Fully Assessed Reason for Visit: Orders [681] Primary Visit Diagnosis:Screening mammogram for breast cancer [Z12.31] Order(s):[facility] SCREENING Drew MALDONADO [[id number]] Order #: [id number] FUTURE Prescriptions as of 03/26/2024 - hydrOXYzine [...] Status:Closed by HARMEET CARMONA on 03/26/24 Normal [facility] Cardiology Visit Reporton Cardiology Visit Report [facility] [address] [place] [address] OFFICE VISIT Date of Service: 03/10/24 MR#: [id number] Acct: [id number] Name: TRICIA GRANADOS Rep #: [id number] : 1940 Provider: SAMANTHA Pendleton Age/Sex: 83/F Location[place] [facility] Status: Signed HPI HPI History of [...] Monitor Intake Visit Reasons: 1 Y FU Physician Intensivist Required: No Is patient in pain?: No [...] Note: patient refused to have vitals taken [facility] Medical History (Updated 03/10/24 @ 14:19 by [...] present Michael (more content not included)... Normal [facility] CNOVon 03-02-2024 CNOV Office Visit (ORTHWS ) DARWINTRICIA ([id number]) 1940 F Date Time Provider Department 03/02/24 [...] knee joints Informed Consent Consent Obtained: Verbal [place] Protocol A moment to CARE was completed. [...] completed when applicable Referring Provider: BREANNA CANSECO [[id number]] Allergies As of Date: 03/02/2024 Noted Allergy Reaction CAFFEINE 02/16/2014 5 - Intolerance Date Reviewed: 01/24/2024 Reviewed by: Orquidea Robertson APRN.CARTON MACHINE OPERATOR - Fully Assessed Primary Visit Diagnosis:Primary osteoarthritis of both knees [M17.0] Order(s):Large Joint Arthro/Inj: bilateral knee joints [[id number]] Order #: [id number] [] betamethasone acetate-betamethasone sodium phosphate 6 mg [...] Encounter Status:Closed by BREANNA CANSECO on 03/02/24 [facility] Large Joint Arthro/Inj: bila teral knee jointson 03-02-2024 Breanna Canseco PA -C 03/02/2024 9:26 AM Large Joint Arthro/Inj: bilateral knee joints Informed Consent Consent Obtained: Verbal [place] Protocol A moment to CARE was completed. [...] Plan of Care Visit completed when applicable [facility] XR KNEE 4V AP/PA/LAT/MERCH B ILon 12-26-2023 [...] the knees. Mild degenerative change, as described. Section Hand Helper: SKYLER Transcribe Date/Time: Dec 26 2023 1:07P Dictated by : VAMSI NGUYEN MD This examination was interpreted and the report reviewed and electronically signed by: VAMSI NGUYEN MD on Dec 26 2023 1:17PM EST [id number] [facility] XR Knee - bilateral 4 Viewso n 12-26-2023 IMPRESSION: No acute fracture or dislocation of the knees. Mild degenerative change, as described. Section Hand Helper: SKYLER Transcribe Date/Time: Dec 26 2023 1:07P Dictated by : VAMSI NGUYEN MD This examination was interpreted and the report reviewed and electronically signed by: VAMSI NGUYEN MD on Dec 26 2023 1:17PM EST [facility] * * *Final Report* * * [...] superior pole patella. No radiopaque foreign body. [facility] * * *Final Report* * [...] the knees. Mild degenerative change, as described. Section Hand Helper: PSCB Transcribe Date/Time: Dec 26 2023 1:07P Dictated by : VAMSI NGUYEN MD This examination was interpreted and the report reviewed and electronically signed by: VAMSI NGUYEN MD on Dec 26 2023 1:17PM EST [facility] Radiology Study observation (narrative) [facility] XR Knee - bilateral 4 ViewsO rdered By: Ccf Provider on 12-26-2023 [facility] Large Joint Arthro/Inj: bishnu gregory knee jointson 11-25-2023 Breanna Canseco PA -C 11/25/2023 8:39 AM Large Joint Arthro/Inj: bilateral knee joints Informed Consent Consent Obtained: Verbal [place] Protocol A moment to CARE was completed. [...] instruments, equipment or retained foreign bodies applicable. [facility] Large Joint Arthro/Inj: bishnu gregory knee jointson 08-19-2023 Breanna Canseco PA -C 08/19/2023 10:12 AM Large Joint Arthro/Inj: bilateral knee joints Informed Consent Consent Obtained: Verbal [place] Protocol A moment to CARE was completed. [...] instruments, equipment or retained foreign bodies applicable. [facility] DIGITAL MAMM SCREENING W/ TO Pace 04-03-2022 DIGITAL MAMM SCREENING W/ JOEL Patient Name: TRICIA GRANADOS STUDY: DIGITAL MAMM SCREENING W/ JOEL; 04/03/2022 9:15 am ACCESSION NUMBER(S): [id number] ORDERING CLINICIAN: ROSALINO CARMONA INDICATION: Screening. COMPARISON: [...] any future breast imaging appointments, please call [phone] ([phone]). Electronically signed by: RENARD ALLEN MD [facility] No Panel Informationon 12-18 [facility] XR Knee - bilateral 4 Viewso n 10-15-2021 IMPRESSION: Stable degenerative changes as detailed in report. Section Hand Helper: PSCB Transcribe Date/Time: Oct 15 2021 9:25A [...] Stable degenerative changes as detailed in report. Section Hand Helper: PSCB Transcribe Date/Time: Oct 15 2021 9:25A Dictated by : JULIANN LEON MD This examination was interpreted and the report reviewed and electronically signed by: JULIANN LEON MD on Oct 15 2021 9:30AM EST [facility] XR Knee - bilateral 4 ViewsO rdered By: Ccf Provider on 10-15-2021 [facility] XR Knee - bilateral 4 Viewso n 10-14-2021 Radiology Study observation (narrative) [facility] MA Mamm Screen w/CAD if perf ormed bilaton 01-01-2019 MA Mamm Screen w/CAD if performed bilat Exam Date/Time: 01/01/2019 08:26 EDT Reason for Exam: SCREENING Report STUDY: Digital mammography screening; 01/01/2019 8:26 am ACCESSION NUMBER(S): [id number] ORDERING CLINICIAN: Rosalino Carmona INDICATION: Screening. COMPARISON: [...] 2-Benign finding Recommendation: Normal interval follow-up Normal [facility] Office Visiton 02-05-2017 Documentation of current medications (procedure) Done Invalid Interpretation Code [facility] Work Phone: Fall risk assessment No Invalid Interpretation Code [facility] Work Phone: [phone] Office Visiton 01-23-2016 Dietary management education, guidance, and counseling (procedure) yes Invalid Interpretation Code [facility] Work Phone: [phone] Tobacco use CPHS Never smoker Invalid Interpretation Code [facility] Work Phone: [phone] Clinical Lists Update: Pre estimator project manager 01-20-2016 Left ventricular Ejection fraction 65 % Invalid Interpretation Code [facility] Work Phone: [phone] Clinical Lists Update: Pre estimator project manager 05-20-2015 Alanine aminotransferase (ALT) 18 U/L Invalid Interpretation Code [facility] Work Phone: [phone] Albumin 4.3 g/dL Invalid Interpretation Code [facility] Work Phone: [phone] Alkaline phosphatase (ALP) 85 U/L Invalid Interpretation Code [facility] Work Phone: [phone] Aspartate aminotransferase (AST) 19 U/L Invalid Interpretation Code [facility] Work Phone: [phone] Bilirubin (total) 0.5 mg/dL Invalid Interpretation Code [facility] Work Phone: [phone] BUN/Creatinine Ratio 17.0 mg/mg Invalid Interpretation Code [facility] Work Phone: [phone] Calcium 9.4 mg/dL Invalid Interpretation Code [facility] Work Phone: [phone] Chloride 107 mmol/L Invalid Interpretation Code [facility] Work Phone: [phone] Cholesterol 190 mg/dL Invalid Interpretation Code [facility] Work Phone: [phone] Cholesterol to HDL Ratio 4 {ratio} Invalid Interpretation Code [facility] Work Phone: [phone] CO2 27.2 mmol/L Invalid Interpretation Code [facility] Work Phone: [phone] Creatinine 1.0 mg/dL Invalid Interpretation Code [facility] Work Phone: [phone] Erythrocyte distribution width Auto Ratio (RBC) 13.1 % Invalid Interpretation Code [facility] Work Phone: [phone] Erythrocytes (RBC) 4.37 10*6/uL Invalid Interpretation Code [facility] Work Phone: [phone] Globulin 3.3 g/dL Invalid Interpretation Code [facility] Work Phone: [phone] Glucose mass conc 103 mg/dL High [facility] Work Phone: [phone] HDL Cholesterol 52 mg/dL Invalid Interpretation Code [facility] Work Phone: [phone] Hematocrit (HCT) 40.8 % Invalid Interpretation Code [facility] Work Phone: [phone] Hemoglobin mass conc (Bld) 13.6 g/dL Invalid Interpretation Code [facility] Work Phone: [phone] LDL Cholesterol 99 mg/dL Invalid Interpretation Code [facility] Work Phone: [phone] MCH 31.2 pg High [facility] Work Phone: [phone] MCHC mass conc (RBC) 33.4 g/dL Invalid Interpretation Code [facility] Work Phone: [phone] MCV 93.4 fL Invalid Interpretation Code [facility] Work Phone: [phone] Platelets 238 10*3/mm3 Invalid Interpretation Code [facility] Work Phone: [phone] PMV by Khushi 10.6 fL Invalid Interpretation Code [facility] Work Phone: [phone] Potassium molar conc 4.4 mmol/L Invalid Interpretation Code [facility] Work Phone: [phone] Protein 7.6 g/dL Invalid Interpretation Code [facility] Work Phone: [phone] Sodium 140 mmol/L Invalid Interpretation Code [facility] Work Phone: [phone] Triglyceride 195 mg/dL High [facility] Work Phone: [phone] Urea nitrogen 17 mg/dL Invalid Interpretation Code [facility] Work Phone: [phone] very low density lipoproteins 39 mg/dL Invalid Interpretation Code [facility] Work Phone: [phone] WBC (Leukocytes) 9.1 10*3/uL Invalid Interpretation Code [facility] Work Phone: [phone] Office Visiton 02-15-2015 cardiac risk group B Invalid Interpretation Code [facility] Work Phone: [phone] General cardiovascular disease 10Y risk [#] [place].Argenis'Mendez rae 15 % Invalid Interpretation Code [facility] Work Phone: [phone] Lab Report: Drawn @ [facility] 04-10-2013 MCHC mass conc (RBC) 34.1 % Invalid Interpretation Code [facility] Work Phone: [phone] Lab Report: Ordered by Dr. 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 Rosalino Carmona MD Work Phone: [phone] [place] [address] 01-08-2025 10:09-0400 Diastolic blood pressure 50 mm[Hg] Dr. Rosalino Carmona MD Work Phone: [phone] [place] [address] 01-08-2025 10:09-0400 Systolic blood pressure 136 mm[Hg] Dr. Rosalino Carmona MD Work Phone: [phone] [place] [address] 01-08-2025 10:06-0400 Body mass index (BMI) [Ratio] 29.8 kg/m2 Dr. Rosalino Carmona MD Work Phone: [phone] [place] [address] 01-08-2025 10:06-0400 Body weight 83.[address] Rosalino Carmona MD Work Phone: [phone] [place] [address] 01-08-2025 10:06-0400 Heart rate 62 /min Dr. Rosalino Carmona MD Work Phone: [facility] 01-08-2025 10:06-0400 Respiratory rate 18 /min Dr. Rosalino Carmona MD Work Phone: [facility] 01-08-2025 10:06-0400 SaO2% (BldA) [Mass fraction] 97 % Dr. Rosalino Carmona MD Work Phone: [facility] 12-02-2024 08:24-0400 Body mass index (BMI) [Ratio] 30.41 kg/m2 Rosalino Carmona MD Work Phone: [facility] 12-02-2024 08:24-0400 Body weight 85.46 kg Rosalino Carmona MD Work Phone: [facility] 12-02-2024 08:24-0400 Diastolic blood pressure 60 mm[Hg] Rosalino Carmona MD Work Phone: [facility] 12-02-2024 08:24-0400 Heart rate 47 /min Rosalino Carmona MD Work Phone: [facility] 12-02-2024 08:24-0400 SaO2% (BldA) [Mass fraction] 97 % Rosalino Carmona MD Work Phone: [facility] 12-02-2024 08:24-0400 Systolic blood pressure 110 mm[Hg] Rosalino Carmona MD Work Phone: [facility] 05-26-2024 08:23-0500 Diastolic blood pressure 58 mm[Hg] Orquidea Suppan PARTITION ASSEMBLY MACHINE OPERATOR.CARTON MACHINE OPERATOR Work Phone: [facility] 05-26-2024 08:23-0500 Systolic blood pressure 130 mm[Hg] Orquidea Suppan PARTITION ASSEMBLY MACHINE OPERATOR.CARTON MACHINE OPERATOR Work Phone: [facility] 05-26-2024 07:59-0500 Body height 167.6 cm Orquidea Suppan PARTITION ASSEMBLY MACHINE OPERATOR.CARTON MACHINE OPERATOR Work Phone: [facility] 05-26-2024 07:59-0500 Body mass index (BMI) [Ratio] 31.47 kg/m2 Orquidea Suppan PARTITION ASSEMBLY MACHINE OPERATOR.CARTON MACHINE OPERATOR Work Phone: [facility] 05-26-2024 07:59-0500 Body weight 88.45 kg Orquidea Suppan PARTITION ASSEMBLY MACHINE OPERATOR.CARTON MACHINE OPERATOR Work Phone: [facility] 05-26-2024 07:59-0500 Heart rate 75 /min Orquidea Suppan PARTITION ASSEMBLY MACHINE OPERATOR.CARTON MACHINE OPERATOR Work Phone: [facility] 04-28-2024 14:34-0500 Body height 167.6 cm Rosalino Carmona MD Work Phone: [facility] 04-28-2024 14:34-0500 Body mass index (BMI) [Ratio] 31.96 kg/m2 Rosalino Carmona MD Work Phone: [facility] 04-28-2024 14:34-0500 Body weight 89.81 kg Rosalino Carmona MD Work Phone: [facility] 04-28-2024 14:34-0500 Diastolic blood pressure 60 mm[Hg] Rosalino Carmona MD Work Phone: [facility] 04-28-2024 14:34-0500 Heart rate 65 /min Rosalino Carmona MD Work Phone: [facility] 04-28-2024 14:34-0500 SaO2% (BldA) [Mass fraction] 99 % Rosalino Carmona MD Work Phone: [facility] 04-28-2024 14:34-0500 Systolic blood pressure 166 mm[Hg] Rosalino Carmona MD Work Phone: [facility] 04-10-2024 08:48-0500 Body height 167.6 cm [facility] 04-10-2024 08:48-0500 Body mass index (BMI) [Ratio] 30.99 kg/m2 [facility] 04-10-2024 08:48-0500 Body weight 87.09 kg [facility] 01-24-2024 07:50-0400 Diastolic blood pressure 56 mm[Hg] Orquidea Suppan PARTITION ASSEMBLY MACHINE OPERATOR.CARTON MACHINE OPERATOR Work Phone: [facility] 01-24-2024 07:50-0400 Heart rate 74 /min Orquidea Suppan PARTITION ASSEMBLY MACHINE OPERATOR.CARTON MACHINE OPERATOR Work Phone: [facility] 01-24-2024 07:50-0400 Respiratory rate 16 /min Orquidea Suppan PARTITION ASSEMBLY MACHINE OPERATOR.CARTON MACHINE OPERATOR Work Phone: [facility] 01-24-2024 07:50-0400 SaO2% (BldA) [Mass fraction] 97 % Orquidea Suppan PARTITION ASSEMBLY MACHINE OPERATOR.CARTON MACHINE OPERATOR Work Phone: [facility] 01-24-2024 07:50-0400 Systolic blood pressure 170 mm[Hg] Orquidea Suppan PARTITION ASSEMBLY MACHINE OPERATOR.CARTON MACHINE OPERATOR Work Phone: [facility] 12-27-2023 09:43-0400 Diastolic blood pressure 68 mm[Hg] Orquidea Suppan PARTITION ASSEMBLY MACHINE OPERATOR.CARTON MACHINE OPERATOR Work Phone: [facility] 12-27-2023 09:43-0400 Systolic blood pressure 146 mm[Hg] Orquidea Suppan PARTITION ASSEMBLY MACHINE OPERATOR.CARTON MACHINE OPERATOR Work Phone: [facility] 12-27-2023 09:39-0400 Body mass index (BMI) [Ratio] 34.22 kg/m2 Orquidea Suppan PARTITION ASSEMBLY MACHINE OPERATOR.CARTON MACHINE OPERATOR Work Phone: [facility] 12-27-2023 09:39-0400 Body weight 96.16 kg Orquidea Suppan PARTITION ASSEMBLY MACHINE OPERATOR.CARTON MACHINE OPERATOR Work Phone: [facility] 12-27-2023 09:39-0400 Heart rate 65 /min Orquidea Suppan PARTITION ASSEMBLY MACHINE OPERATOR.CARTON MACHINE OPERATOR Work Phone: [facility] 12-27-2023 09:39-0400 SaO2% (BldA) [Mass fraction] 98 % Orquidea Suppan PARTITION ASSEMBLY MACHINE OPERATOR.CARTON MACHINE OPERATOR Work Phone: [facility] 10-18-2022 08:55-0400 Diastolic blood pressure 80 mm[Hg] Rosalino Carmona MD Work Phone: [facility] 10-18-2022 08:55-0400 Systolic blood pressure 136 mm[Hg] Rosalino Carmona MD Work Phone: [facility] 10-18-2022 08:34-0400 Body weight 93.89 kg Rosalino Carmona MD Work Phone: [facility] 10-18-2022 08:34-0400 Heart rate 60 /min Rosalino Carmona MD Work Phone: [facility] 10-18-2022 08:34-0400 SaO2% (BldA) [Mass fraction] 98 % Rosalino Carmona MD Work Phone: [facility] 04-18-2022 10:56-0500 Diastolic blood pressure 100 mm[Hg] Rosalino Carmona MD Work Phone: [facility] 04-18-2022 10:56-0500 Systolic blood pressure 180 mm[Hg] Rosalino Carmona MD Work Phone: [facility] 04-18-2022 10:22-0500 Body temperature 98.01 [degF] Rosalino Carmona MD Work Phone: [facility] 04-18-2022 10:22-0500 Body weight 95.53 kg Rosalino Carmona MD Work Phone: [facility] 04-18-2022 10:22-0500 Heart rate 71 /min Rosalino Carmona MD Work Phone: [facility] 04-18-2022 10:22-0500 Respiratory rate 16 /min Rosalino Carmona MD Work Phone: [facility] 10-14-2021 08:13-0400 Body weight 95.25 kg Rosalino Carmona MD Work Phone: [facility] 10-14-2021 08:13-0400 Diastolic blood pressure 90 mm[Hg] Rosalino Carmona MD Work Phone: [facility] 10-14-2021 08:13-0400 Heart rate 62 /min Rosalino Carmona MD Work Phone: [facility] 10-14-2021 08:13-0400 Respiratory rate 16 /min Rosalino Carmona MD Work Phone: [facility] 10-14-2021 08:13-0400 SaO2% (BldA) [Mass fraction] 97 % Rosalino Carmona MD Work Phone: [facility] 10-14-2021 08:13-0400 Systolic blood pressure 160 mm[Hg] Rosalino Carmona MD Work Phone: [facility] 02-05-2017 09:45-0400 BMI (Body Mass [...] Facility Start: 02-11-2025 End: 02-11-20[facility] Start: 01-08-2025 End: 01-08-2025 Patient encounter procedure Demetrice SINGH -[facility] Work Phone: Start: 01-08-2025 End: 01-08-2025 ambulatory Rosalino Carmona Facility[place] Start: 01-05-2025 End: 01-05-2025 [facility] Start: 12-28-2024 End: 12-28-2024 Patient encounter procedure Breanna Canseco PA-C Work Phone: Orthopaedics Comment on above: Primary osteoarthrit is of both knees (Primary Dx) Start: 12-28-2024 End: 12-28-2024 ambulatory BREANNA CANSECO Facility:[facility] Start: 12-22-2024 End: 12-22-2024 Follow-up encounter Orquidea Robertson APRN.CARTON MACHINE OPERATOR Work Phone: [facility] Start: 12-18-2024 End: 12-18-2024 ambulatory [facility] Facility:[facility] Start: 12-10-2024 End: 12-10-2024 Telephone encounter Rosalino Carmona MD Work Phone: [facility] Comment on above: Results Start: 12-09-2024 End: 12-09-2024 ambulatory [facility] Facility:[facility] Start: 12-02-2024 End: 12-02-2024 Patient encounter procedure Rosalino Carmona MD Work Phone: [facility] Comment on above: Primary hypertension (Primary Dx); Paroxysmal atrial fibrillation (HCC); Chronic anticoagulation; Anxiety; Bacterial sinusitis; Fatigue, unspecified type Start: 12-02-2024 End: 12-02-2024 ambulatory [facility] Facility:[facility] Start: 09-21-2024 End: 09-21-2024 Patient encounter procedure Breanna Canseco PA-C Work Phone: Orthopaedics Comment on above: Primary osteoarthrit is of both knees (Primary Dx) Start: 09-21-2024 End: 09-21-2024 ambulatory [facility] Facility:[facility] Start: 07-10-2024 End: 07-10-2024 [facility] Facility:[facility] Start: 06-08-2024 End: 06-08-2024 ambulatory [facility] Facility:[facility] Start: 06-08-2024 End: 06-08-2024 Patient encounter procedure Breanna Canseco PA-C Work Phone: Orthopaedics Comment on above: Primary osteoarthrit is of both knees (Primary Dx) Start: 05-26-2024 End: 05-26-2024 Office outpatient visit 15 minutes Orquidea Robertson APRN.CARTON MACHINE OPERATOR Work Phone: [facility] Comment on above: Acute recurrent maxi llary sinusitis (Primary Dx); Anxiety; Primary hypertension Start: 05-26-2024 End: 05-26-2024 ambulatory ORQUIDEA ROBERTSON Facility:[facility] Start: 05-05-2024 End: 05-05-2024 Telephone encounter Rosalino Carmona MD Work Phone: [facility] Comment on above: Patient Update; Bridgette ent Question Start: 04-28-2024 End: 04-28-2024 Patient encounter procedure Rosalino Carmona MD Work Phone: [facility] Comment on above: Paroxysmal atrial fi brillation (HCC) (Primary Dx); Primary hypertension; Stage 3a chronic kidney disease (HCC); Chronic anticoagulation; Anxiety; Screening for depression Start: 04-28-2024 End: 04-28-2024 ambulatory ROSALINO CARMONA Facility:[facility] Start: 04-28-2024 End: 04-29-2024 Telephone encounter Rosalino Carmona MD Work Phone: [facility] Comment on above: Medication Problem Start: 04-10-2024 End: 04-10-2024 Telephone encounter Rosalino Carmona MD Work Phone: [facility] Comment on above: Results Start: 04-10-2024 End: 04-10-2024 Subsequent hospital visit by physician Lg Gallo [facility] Comment on above: Encounter for screen ing mammogram for malignant neoplasm of breast Start: 04-10-2024 End: 04-10-2024 ambulatory [facility] Start: 03-25-2024 End: 03-26-2024 Telephone encounter Rosalino Carmona MD Work Phone: [facility] Comment on above: Orders Start: 03-13-2024 ambulatory [facility] Facility:[facility] Start: 03-13-2024 End: 03-13-2024 ambulatory [facility] Facility:[facility] Start: 03-10-2024 End: 03-10-2024 ambulatory [facility] Facility:[facility] Start: 03-02-2024 End: 03-02-2024 ambulatory BREANNA CANSECO Facility:[facility] Start: 03-02-2024 End: 03-02-2024 Patient encounter procedure Breanna Canseco PA-C Work Phone: Orthopaedics Comment on above: Primary osteoarthrit is of both knees (Primary Dx) Start: 01-27-2024 End: 01-27-2024 Telephone encounter Orquidea Robertson APRN.CNP Work Phone: [facility] Comment on above: Results Start: 01-24-2024 End: 01-24-2024 Office outpatient visit 25 minutes Orquidea Robertson APRN.ALEXX Work Phone: [facility] Comment on above: Anxiety (Primary Dx) ; Acute bronchitis, unspecified organism; Primary hypertension; Chronic fatigue; Stage 3a chronic kidney disease (HCC); Chronic anticoagulation; Screening for lipid disorders; Paroxysmal atrial fibrillation (HCC); Disorder of iron metabolism, unspecified Start: 01-14-2024 End: 01-14-2024 ambulatory Cherelle Rush RN Work Phone: [employer] Start: 01-14-2024 End: 01-14-2024 Telephone follow-up Cherelle Rush RN Work Phone: Manager [employer] Management Comment on above: Transition Of Care ( [facility] Follow-up Day 22) Started Weekly phone contact (Recurring) for Transitional Care Management Start: 01-09-2024 End: 01-09-2024 Telephone encounter Orquidea Robertson APRN.CARTON MACHINE OPERATOR Work Phone: [facility] Comment on above: Patient Question Start: 01-07-2024 End: 01-07-2024 ambulatory Cherelle Rush RN Work Phone: Manager Commission Management Start: 01-07-2024 End: 01-07-2024 Telephone follow-up Cherelle Rush RN Work Phone: Manager Commission Management Comment on above: Transition Of Care ( [facility] Follow-up Day 15) Started Weekly phone contact (Recurring) for Transitional Care Management Start: 12-31-2023 End: 12-31-2023 ambulatory Cherelle Rush RN Work Phone: Manager Commission Management Start: 12-31-2023 End: 12-31-2023 Telephone follow-up Cherelle Rush RN Work Phone: Manager Commission Management Comment on above: Transition Of Care ( [facility] Follow-up Day 18) Started Weekly phone contact (Recurring) for Transitional Care Management Start: 12-27-2023 End: 12-30-2023 Telephone encounter Rosalino Carmona MD Work Phone: [facility] Comment on above: Insurance Authorizat ion (hydroxyzine) Start: 12-27-2023 End: 12-27-2023 Office outpatient visit 25 minutes Orquidea Robertson APRN.CNP Work Phone: [facility] Comment on above: Primary hypertension [...] encounter Start: 12-26-2023 ambulatory BREANNAAngeline CANSECO Facilit y:[facility] Start: 12-26-2023 End: 12-26-2023 Subsequent hospital visit [...] Patient Outreach Cherelle Rush RN Work Phone: Manager Commission Management Comment on above: Transition Of Care ( [facility] Discharge 12/23/23) Initial phone contact for Transitional Care Management, Started Weekly phone contact (Recurring) for Transitional Care Management Start: 12-20-2023 End: 12-20-2023 Telephone encounter Rosalino Carmona MD Work Phone: [facility] Comment on above: Patient Update Start: 11-25-2023 End: 11-25-2023 Subsequent hospital visit by physician Xr [facility] Work Phone: Radiology Comment on [...] Telephone encounter Rosalino Carmona MD Work Phone: [address] [place] [address] Comment on above: Orders Start: 02-04-2023 End: 02-04-2023 Patient encounter procedure Breanna Vetovitz PA-C Work Phone: Orthopaedics Comment on above: Primary osteoarthrit is of both knees (Primary Dx) Start: 10-29-2022 End: 10-29-2022 Patient encounter procedure Breanan Vetovitz PA-C Work Phone: Orthopaedics Comment on above: Primary osteoarthrit is of both knees (Primary Dx) Start: 10-18-2022 End: 10-18-2022 Patient encounter procedure Rosalino Carmona MD Work Phone: [facility] Comment on above: Paroxysmal atrial fi brillation (HCC) (Primary Dx); Primary hypertension; Stage 3a chronic kidney disease (HCC); Chronic anticoagulation; Anxiety Start: 10-17-2022 Orders Only Breanna Brandeeyesica angeles PA-C Work Phone: Orthopaedics Comment on above: Pain in both knees, unspecified chronicity (Primary Dx) Start: 10-15-2022 Telephone encounter Britney Joaquín Richard PA-C Work Phone: [facility] Comment on above: Results Start: 07-16-2022 End: 07-16-2022 Patient encounter procedure Breannadra Canseco PA-C Work Phone: Orthopaedics Comment on above: Chronic pain of both knees (Primary Dx); Primary osteoarthritis of both knees Start: 04-19-2022 Telephone encounter Rosalino Carmona MD Work Phone: [facility] Comment on above: Results Erroneous encounter- disregard Start: 04-18-2022 End: 04-18-2022 Patient encounter procedure Rosalino Carmona MD Work Phone: [facility] Comment on above: Paroxysmal atrial fi brillation (HCC) (Primary Dx); LBBB (left bundle branch block); Primary hypertension; Stage 3a chronic kidney disease (HCC); Chronic anticoagulation; Anxiety; Bacterial sinusitis Start: 04-03-[address] Rosalino Carmona Facility:[id number] Start: 03-12-2022 Telephone encounter Rosalino Carmona MD Work Phone: [address] [place] [address] Comment on above: Orders Start: 03-12-2022 End: 03-12-2022 Patient encounter procedure Breanna Canseco PA-C Work Phone: Orthopaedics Comment on above: Chronic pain of both knees (Primary Dx); Primary osteoarthritis of both knees Start: 12-18-2021 End: 12-18-2021 Subsequent hospital visit by physician [facility] Brush Work Phone: Radiology Comment on above: Chronic pain of both knees [M25.561, M25.562, G89.29] Start: 12-18-2021 End: 12-18-2021 Patient encounter procedure Breanna Vetovitz PA-C Work Phone: Orthopaedics Comment on above: Primary osteoarthrit is of both knees (Primary Dx); Chronic pain of both knees Start: 10-14-2021 End: 10-14-2021 Subsequent hospital visit by physician [facility] Work Phone: Radiology Comment on above: Chronic pain of both knees [M25.561, M25.562, G89.29] Start: 10-14-2021 End: 10-14-2021 Patient encounter procedure Rosalino Carmona MD Work Phone: [facility] [place] Comment on above: Paroxysmal atrial fi brillation [...] Author Start: 12-19-2027 Diabetes Screening Diabetes Screening [facility] Start: 12-10-2027 Diabetes Screening Diabetes Screening [facility] Start: 01-23-2027 Diabetes Screening Diabetes Screening [facility] Start: 04-09-2026 Diabetes Screening Diabetes Screening [facility] Start: 10-13-2025 DIABETES SCREEN DIABETES SCREEN [facility] Start: 10-13-2025 Diabetes Screening Diabetes Screening [facility] Start: 06-11-2025 End: 06-11-2025 Patient encounter procedure 06/11/2025 8:00 AM EST Office Visit [facility] [address], [place] [id number] Rosalino Carmona MD [address] [place], [place] [id number] medicare wellness [facility] Comment on above: medicare wellness Start: 04-28-2025 Covid-19 Vaccine () Covid-19 Vaccine () [facility] Comment on above: Postponed from 12/22/2023 (Declined at t his time) Start: 04-28-2025 Depression Screening Depression Screening [facility] Start: 04-28-2025 RSV Vaccine (1 - 1-dose 75+ series) RSV Vaccine (1 - 1-dose 75+ series) [facility] Comment on above: Postponed from 09/05/2015 (Declined at t his time) Start: 04-18-2025 DIABETES SCREEN DIABETES SCREEN [facility] Start: 03-29-2025 End: 03-29-2025 Patient encounter procedure 03/29/2025 8:30 AM EST Office Visit Orthopaedics [address] [place] [address] Breanna Canseco PA-C [address] [place] [address] 91 day follow up B/L knees Orthopaedics Comment on above: 91 day follow up B/L knees Start: 02-21-2025 End: 05-23-2025 Thyrotropin [Units/volume] in Serum or Plasma THYROID STIMULATING HORMONE Lab Routine Hypothyroidism, acquired Expected: 02/21/2025, Expires: 05/23/2025 [facility] Work Phone: Comment on above: Expected: 02/21/2025, Expires: Start: 02-21-2025 End: 05-23-2025 Thyroxine (T4) free [Mass/volume] in Serum or Plasma T4 FREE/FREE THYROXINE Lab Routine Hypothyroidism, acquired Expected: 02/21/2025, Expires: 05/23/2025 [facility] Comment on above: Expected: 02/21/2025, Expires: Start: 01-23-2025 Diabetes mellitus screening Diabetes Screening [facility] Start: 01-23-2025 Shingrix Vaccine (1 of 2) Shingrix Vaccine (1 of 2) [facility] Comment on above: Postponed from 1990 (Insurance Cov erage) Start: 01-23-2025 Urine microalbumin profile DTaP,Tdap,Td Vaccine (1 - Tdap) [facility] Comment on above: Postponed from 09/05/1959 (Insurance Cov erage) Start: 01-05-2025 End: 04-06-2025 Basic metabolic 2000 panel - Serum or Plasma BASIC METABOLIC PANEL Lab Routine Hyponatremia Expected: 01/05/2025, Expires: 04/06/2025 [facility] Comment on above: Expected: 01/05/2025, Expires: Start: 01-05-2025 End: 04-06-2025 Magnesium [Mass/volume] in Serum or Plasma MAGNESIUM Lab Routine Hyponatremia Expected: 01/05/2025, Expires: 04/06/2025 [facility] Comment on above: Expected: 01/05/2025, Expires: Start: 12-28-2024 End: 12-28-2024 Patient encounter procedure 12/28/2024 8:30 AM EDT Office Visit Orthopaedics [address] [place] [address] Breanna Canseco PA-C [address] [place] [address] 91 day follow up B/L knees Orthopaedics Comment on above: 91 day follow up B/L knees Start: 12-24-2024 End: 03-25-2025 Basic metabolic 2000 panel - Serum or Plasma BASIC METABOLIC PANEL Lab Routine Renal insufficiency Hypothyroidism, acquired Expected: 12/24/2024, Expires: 03/25/2025 [facility] Work Phone: Comment on above: Expected: 12/24/2024, Expires: Start: 12-24-2024 End: 03-25-2025 T4/FTI/T4U T4/FTI/T4U Lab Routine Renal insufficiency Hypothyroidism, acquired Expected: 12/24/2024, Expires: 03/25/2025 [facility] Comment on above: Expected: 12/24/2024, Expires: Start: 12-24-2024 End: 03-25-2025 Thyrotropin [Units/volume] in Serum or Plasma THYROID STIMULATING HORMONE Lab Routine Renal insufficiency Hypothyroidism, acquired Expected: 12/24/2024, Expires: 03/25/2025 [facility] Comment on above: Expected: 12/24/2024, Expires: Start: 12-24-2024 End: 03-25-2025 Triiodothyronine (T3) [Mass/volume] in Serum or Plasma T3 Lab Routine Renal insufficiency Hypothyroidism, acquired Expected: 12/24/2024, Expires: 03/25/2025 [facility] Comment on above: Expected: 12/24/2024, Expires: Start: 12-21-2024 Influenza vaccination [facility] Start: 12-02-2024 End: 03-02-2025 CBC W Auto Differential panel - Blood COMPLETE BLOOD COUNT AND DIFFERENTIAL Lab Routine Fatigue, unspecified type Expected: 12/02/2024, Expires: 03/02/2025 [facility] Work Phone: Comment on above: Expected: 12/02/2024, Expires: Start: 12-02-2024 End: 03-02-2025 Comprehensive metabolic 2000 panel - Serum or Plasma COMPREHENSIVE METABOLIC PANEL Lab Routine Fatigue, unspecified type Expected: 12/02/2024, Expires: 03/02/2025 [facility] Comment on above: Expected: 12/02/2024, Expires: Start: 12-02-2024 End: 03-02-2025 Lipid 1996 panel - Serum or Plasma LIPID PANEL, FASTING Lab Routine Primary hypertension Expected: 12/02/2024, Expires: 03/02/2025 [facility] Comment on above: Expected: 12/02/2024, Expires: Start: 12-02-2024 End: 03-02-2025 Thyrotropin [Units/volume] in Serum or Plasma THYROID STIMULATING HORMONE Lab Routine Fatigue, unspecified type Expected: 12/02/2024, Expires: 03/02/2025 [facility] Comment on above: Expected: 12/02/2024, Expires: Start: 12-02-2024 End: 12-02-2024 Patient encounter procedure 12/02/2024 8:40 AM EDT Office Visit [facility] Stephen Marques [address], [place] [address] Rosalino Carmona MD [address] [place] [address] 6 month follow up [facility] Stephen Mar[facility] Comment on above: 6 month follow up Start: 10-19-2024 Influenza vaccination Influenza Vaccine (#1) [place] [facility]anner Comment on above: Postponed from 12/22/2023 (Declined at t his time) Start: 10-09-2024 DIABETES SCREEN DIABETES SCREEN [facility] Start: 09-21-2024 End: 09-21-2024 Patient encounter procedure 09/21/2024 8:30 AM EDT Office Visit Orthopaedics [address] [facility] [place] [address] Breanna Canseco PA-C [address] [place] [address] 91 day follow up - cortisone injecction B/L knee Orthopaedics Comment on above: 91 day follow up - cortisone injecction B/L knee Start: 06-08-2024 End: 06-08-2024 Patient encounter procedure 06/08/2024 8:30 AM EST Office Visit Orthopaedics [address] [place] [address] Breanna Canseco PA-C [address] [place] [address] 91 day follow up - cortisone injecction B/L knee Orthopaedics Comment on above: 91 day follow up - cortisone injecction B/L knee Start: 05-26-2024 End: 05-26-2024 Patient encounter procedure 05/26/2024 8:00 AM EST Office Visit [facility] [place] [address] [place] [address] Orquidea Robertson APRN.CARTON MACHINE OPERATOR [address] [place] [address] 4 week follow up axniety. started on Sertraline. BP check [facility] [place] Comment on above: 4 week follow up axniety. started on Ser traline. BP check Start: 04-28-2024 End: 04-28-2024 Patient encounter procedure 04/28/2024 2:40 PM EST Office Visit Family [facility] [place] [address] [place] [address] Rosalino Carmona MD [address] [place] [address] 3 month f/u [facility] [place] Comment on above: 3 month f/u Start: 03-02-2024 End: 03-02-2024 Patient encounter procedure 03/02/2024 8:30 AM EST Office Visit Orthopaedics [address] [place] [address] Breanna Canseco PA-C [address] [place] [address] 91 day follow up - cortisone injecction B/L knee Orthopaedics Comment on above: 91 day follow up - cortisone injecction B/L knee Start: 01-24-2024 End: 04-24-2024 CBC W Auto Differential panel - Blood [facility] Work Phone: Comment on above: Expected: 01/24/2024, Expires: Start: 01-24-2024 End: 04-24-2024 Cobalamin (Vitamin B12) [Mass/volume] in Serum or Plasma [facility] Comment on above: Expected: 01/24/2024, Expires: Start: 01-24-2024 End: 04-24-2024 Comprehensive metabolic 2000 panel - Serum or Plasma [facility] Comment on above: Expected: 01/24/2024, Expires: Start: 01-24-2024 End: 04-24-2024 Hemoglobin A1c in Blood [facility] Comment on above: Expected: 01/24/2024, Expires: Start: 01-24-2024 End: 04-24-2024 LIPID PANEL, NONFASTING [facility] Comment on above: Expected: 01/24/2024, Expires: Start: 01-24-2024 End: 04-24-2024 Magnesium [Mass/volume] in Serum or Plasma [facility] Comment on above: Expected: 01/24/2024, Expires: Start: 01-24-2024 End: 04-24-2024 Thyrotropin [Units/volume] in Serum or Plasma [facility] Comment on above: Expected: 01/24/2024, Expires: Start: 01-24-2024 End: 01-24-2024 Patient encounter procedure 01/24/2024 8:00 AM EDT Office Visit [facility] [place] [address] [place] [address] Orquidea Robertson APRN.CARTON MACHINE OPERATOR [address] [place] [address] 4 week BP f/u [facility] [place] Comment on above: 4 week BP f/u Start: 12-27-2023 End: 12-27-2023 Patient encounter procedure 12/27/2023 9:20 AM EDT Office Visit [facility] [address] [place] [address] Orquidea Robertson APRN.CARTON MACHINE OPERATOR [address] [place] [address] follow up from [facility] for nose bleeds [facility] [place] Comment on above: follow up from [facility] for nose bleeds Start: 12-26-2023 End: 12-26-2023 Patient encounter procedure Radiology Comment on above: follow up fall- knee pain R>L Start: 12-25-2023 End: 12-25-2023 Patient encounter procedure 12/25/2023 9:00 AM EDT Office Visit [facility] [address] [place] [address] Rosalino Carmona MD [address] [place] [address] ER F/U [facility] 12/20/2023; Nose Bleed [facility] Comment on above: ER F/U [facility] 12/20/2023; Nose Bleed Start: 12-22-2023 COVID-19 Vaccine () COVID-19 Vaccine () [facility] Start: 12-22-2023 Covid-19 Vaccine () Covid-19 Vaccine () [facility] Start: 12-22-2023 Covid-19 Vaccine () Covid-19 Vaccine ( season) [facility] Start: 12-22-2023 Influenza vaccination [facility] Start: 11-25-2023 End: 11-25-2023 Patient encounter procedure 11/25/2023 8:00 AM EDT Office Visit Orthopaedics [address] [place] [address] Breanna Canseco PA-C [address] [place] [address] 91 DAY FOLLOW UP CORTISON INJECTIO B/L Orthopaedics Comment on above: 91 DAY FOLLOW UP CORTISON INJECTIO B/L Start: 10-19-2023 COVID-19 VACCINE (4 - Booster for Pfizer series) COVID-19 VACCINE (4 - Booster for Pfizer series) [facility] Comment on above: Postponed from 04/20/2021 (Declined at t his time) Start: 10-19-2023 COVID-19 VACCINE (4 - Pfizer series) COVID-19 VACCINE (4 - Pfizer series) [facility] Comment on above: Postponed from 04/20/2021 (Declined at t his time) Start: 10-19-2023 SHINGRIX VACCINE (1 of 2) SHINGRIX VACCINE (1 of 2) [facility] Comment on above: Postponed from 1990 (Declined at t his time) Start: 10-19-2023 Urine microalbumin profile [facility] Comment on above: Postponed from 09/05/1959 (Declined at t his time) Start: 04-22-2023 Advance Directive Discussion Advance Directive Discussion [facility] Start: 04-22-2023 Behavioral Health Screening Behavioral Health Screening [facility] Start: 04-19-2023 End: 06-19-2023 Basic metabolic 2000 panel - Serum or Plasma BASIC METABOLIC PNL Lab Routine Stage 3a chronic kidney disease (HCC) Expected: 04/19/2023, Expires: 06/19/2023 [facility] Work Phone: Comment on above: Expected: 04/19/2023, Expires: Start: 04-19-2023 End: 06-19-2023 CBC W Auto Differential panel - Blood CBC + DIFF Lab Routine Stage 3a chronic kidney disease (HCC) Expected: 04/19/2023, Expires: 06/19/2023 [facility] Work Phone: Comment on above: Expected: 04/19/2023, Expires: 4 Start: 12-21-2022 Covid-19 Vaccine () Covid-19 Vaccine () [facility] Start: 12-21-2022 Influenza vaccination [facility] Start: 10-14-2022 SHINGRIX VACCINE (1 of 2) SHINGRIX VACCINE (1 of 2) [facility] Comment on above: Postponed from 1990 (Insurance Cov erage) Start: 10-14-2022 Urine microalbumin profile DTAP,TDAP,TD (1 - Tdap) [facility] Comment on above: Postponed from 09/05/1959 (Insurance Cov erage) Start: 04-22-2022 ADVANCE DIRECTIVE DISCUSSION ADVANCE DIRECTIVE DISCUSSION [facility] Start: 04-22-2022 DEPRESSION ASSESSMENT DEPRESSION ASSESSMENT [facility] Start: 04-19-2022 End: 06-19-2022 CBC W Auto Differential panel - Blood CBC + DIFF Lab Routine Leukocytosis, unspecified type Expected: 04/19/2022, Expires: 06/19/2022 [facility] Work Phone: Comment on above: Expected: 04/19/2022, Expires: 3 Start: 04-15-2022 End: 06-15-2022 Basic metabolic 2000 panel - Serum or Plasma BASIC METABOLIC PNL Lab Routine Stage 3a chronic kidney disease (HCC) Expected: 04/15/2022, Expires: 06/15/2022 [facility] Work Phone: Comment on above: Expected: 04/15/2022, Expires: 3 Start: 04-15-2022 End: 06-15-2022 CBC W Auto Differential panel - Blood CBC + DIFF Lab Routine Primary hypertension Chronic anticoagulation Expected: 04/15/2022, Expires: 06/15/2022 [facility] Work Phone: Comment on above: Expected: 04/15/2022, Expires: 3 Start: 12-21-2021 Influenza vaccination INFLUENZA (#1) [facility] Start: 06-23-2021 COVID-19 VACCINE (4 - Booster for Pfizer series) COVID-19 VACCINE (4 - Booster for Pfizer series) [facility] Start: 04-22-2021 DEPRESSION ASSESSMENT DEPRESSION ASSESSMENT [facility] Start: 04-20-2021 COVID-19 VACCINE (4 - Booster for Pfizer series) COVID-19 VACCINE (4 - Booster for Pfizer series) [facility] Start: 02-06-2018 End: 02-06-2018 Appointment Appointment [facility] Work Phone: Start: 02-05-2017 End: 02-05-2017 FORM COVERER FORM COVERER [facility] Work Phone: Start: 02-05-2017 End: 02-05-2017 Follow Up Appt 1 year Follow Up Appt 1 year [facility] Work Phone: Start: 01-23-2016 End: 01-23-2016 Follow Up Appt 1 year Follow Up Appt 1 year [facility] Work Phone: Start: 01-23-2016 End: 01-23-2016 MMM MMM [facility] Work Phone: Start: 09-05-2015 RSV High Risk: (Elderly (60+) or Population) (1 - 1-dose 75+ series) RSV High Risk: (Elderly (60+) or Population) (1 - 1-dose 75+ series) [facility] Start: 09-05-2015 RSV Vaccine (1 - 1-dose 75+ series) RSV Vaccine (1 - 1-dose 75+ series) [facility] Start: 02-15-2015 End: 02-15-2015 FORM COVERER FORM COVERER [facility] Work Phone: Start: 02-15-2015 End: 02-15-2015 Follow Up Appt 1 year Follow Up Appt 1 year [facility] Work Phone: Start: 02-16-2014 End: 02-16-2014 FORM COVERER FORM COVERER [facility] Work Phone: Start: 02-16-2014 End: 02-16-2014 Follow Up Appt 1 year Follow Up Appt 1 year [facility] Work Phone: Start: 08-11-2013 End: 08-11-2013 FORM COVERER FORM COVERER [facility] Work Phone: Start: 08-11-2013 End: 02-16-2014 Follow Up Appt 6 months Follow Up Appt 6 months [facility] Work Phone: Start: 08-11-2013 End: 02-16-2014 MMM MMM [facility] Work Phone: Start: 01-07-2013 End: 01-07-2013 FORM COVERER FORM COVERER [facility] Work Phone: Start: 01-07-2013 End: 01-07-2013 Follow Up Appt 6 months Follow Up Appt 6 months [facility] Work Phone: Start: 07-11-2012 End: 07-11-2012 Follow Up Appt 6 months Follow Up Appt 6 months [facility] Work Phone: Start: 07-11-2012 End: 07-11-2012 MMM MMM [facility] Work Phone: Start: 11-22-2011 End: 11-22-2011 Follow Up Appt 6 months Follow Up Appt 6 months [facility] Work Phone: Start: 11-22-2011 End: 11-22-2011 Nuclear stress test -exercise Nuclear stress test -exercise [facility] Work Phone: Start: 09-20-2002 Medicare Annual Wellness Visit Medicare Annual Wellness Visit [facility] Start: 2000 RSV Vaccine (1 - 1-dose 60+ series) RSV Vaccine (1 - 1-dose 60+ series) [facility] Start: 1990 SHINGRIX VACCINE (1 of 2) SHINGRIX VACCINE (1 of 2) [facility] Start: 1990 Zoster Vaccines (1 of 2) Zoster Vaccines (1 of 2) [facility] Start: 05-16-1963 DTaP/Tdap/Td Vaccines (1 - Tdap) DTaP/Tdap/Td Vaccines (1 - Tdap) [facility] Start: 09-05-1959 Urine microalbumin profile [facility] Start: 1958 Depression Screening Depression Screening [facility] Start: 1940 Lipid panel Lipid Panel [facility] Start: 1940 Medicare Annual Wellness Visit Medicare Annual Wellness Visit (AWV) [facility] End: 04-24-2025 DBT Breast - bilateral screening [facility] SCREENING [facility] Radiology Routine Screening mammogram for breast cancer 1 Occurrences starting 03/25/2024 until 04/24/2025 [facility] Work Phone: Comment on above: 1 Occurrences starting 03/25/2024 until 04/24/2025 End: 04-11-2023 [facility] SCREENING [facility] JO[facility] SCREEN[facility] Radiology Routine Encounter for screening mammogram for malignant neoplasm of breast 1 Occurrences starting 03/12/2022 until 04/11/2023 [facility] Work Phone: Comment on above: 1 Occurrences starting 03/12/2022 until 04/11/2023 End: 03-26-2024 MC SCREENING W JO[facility] SCREENING [facility] Radiology Routine Encounter for screening mammogram for malignant neoplasm of breast 1 Occurrences starting 02/25/2023 until 03/26/2024 [facility] Work Phone: Comment on above: 1 Occurrences starting 02/25/2023 until 03/26/2024 End: 12-24-2024 XR Knee - bilateral 4 Views XR KNEE GENERAL 4V AP BOTH/PA BOTH/LAT/MERC BILATERAL Radiology Routine Primary osteoarthritis of both knees Chronic pain of both knees 1 Occurrences starting 11/25/2023 until 12/24/2024 [facility] Work Phone: Comment on above: 1 Occurrences starting 11/25/2023 until 12/24/2024 XR Knee - bilateral 4 Views XR KNEE GENERAL 4V AP BOTH/PA BOTH/LAT/MERC BILATERAL Radiology Routine Primary osteoarthritis of both knees Chronic pain of both knees 11/25/2023 8:48 AM EDT [facility] [facility] End: 01-23-2025 XR Knee - bilateral 4 Views XR KNEE GENERAL 4V AP BOTH/PA BOTH/LAT/MERC BILATERAL Radiology Routine Acute pain of both knees 1 Occurrences starting 12/25/2023 until 01/23/2025 [facility] Work Phone: Comment on above: 1 Occurrences starting 12/25/2023 until 01/23/2025 XR KNEE GENERAL 4V A P BOTH/PA BOTH/LAT/MERC BILATERAL XR KNEE GENERAL 4V AP BOTH/PA BOTH/LAT/MERC BILATERAL Radiology Routine Chronic pain of both knees 10/14/2021 9:06 AM EDT [facility] Work Phone: End: 11-16-2023 XR KNEE GENERAL 4V AP BOTH/PA BOTH/LAT/MERC BILATERAL XR KNEE GENERAL 4V AP BOTH/PA BOTH/LAT/MERC BILATERAL Radiology Routine Pain in both knees, unspecified chronicity 1 Occurrences starting 10/17/2022 until 11/16/2023 [facility] Work Phone: Comment on above: 1 Occurrences starting 10/17/2022 until 11/16/[address] [facility] Immunizations Immunization Date Immunization Notes Care Provider [facility] 01-12-2022 influenza, high dose seasonal, preservative-free Rosalino Carmona MD Work Phone: [facility] 01-12-2022 influenza virus vacc ine, unspecified formulation Breanna Canseco PA-C Work Phone: [facility] 02-23-2021 COVID-19 vaccine, ag e 12+ yr (PFIZER-BIONTECH - PURPLE TOP) Rosalino Carmona MD Work Phone: [facility] Work Phone: 01-13-2021 influenza, high dose seasonal, preservative-free Rosalino Carmona MD Work Phone: [facility] Work Phone: 07-22-2020 COVID-19 vaccine, ag e 12+ yr (PFIZER-BIONTECH - PURPLE TOP) Rosalino Carmona MD Work Phone: [facility] Work Phone: 06-23-2020 COVID-19 vaccine, ag e 12+ yr (PFIZER-BIONTTruli - PURPLE TOP) Rosalino Carmona MD Work Phone: [facility] Work Phone: 12-25-2018 influenza, high dose seasonal, preservative-free Rosalino Carmona MD Work Phone: [facility] 01-13-2018 influenza, high dose seasonal, preservative-free Rosalino Carmona MD Work Phone: [facility] 01-09-2017 influenza, high dose seasonal, preservative-free Rosalino Carmona MD Work Phone: [facility] 01-13-2016 influenza, high dose seasonal, preservative-free Rosalino Carmona MD Work Phone: [facility] 01-05-2015 influenza, high dose seasonal, preservative-free Rosalino Carmona MD Work Phone: [facility] 01-05-2015 pneumococcal conjuga te vaccine, 13 valent Rosalino Carmona MD Work Phone: [facility] 01-11-2014 influenza, high dose seasonal, preservative-free Rosalino Carmona MD Work Phone: [facility] 03-21-2006 pneumococcal polysaccharide vaccine, 23 valent Rosalino Carmona MD Work Phone: [facility] Payers Date Payer Category Payer Self-pay 2022 Medicare supplementa l policy (as second payer) [facility] [id number] 2017 Private Health Insurance [facility] AARP SUPPLEMENT [id number] 2017-Present [phone] [address] [place] [address] Indemnity [id number] 2017 Private Health Insurance [id number] 2002 Medicare MEDICARE MEDICAR E A AND B [id number] 2002-Present [phone] [address] [address] [place] [address] Medicare [id number] 2002 Medicare [id number] 2002 Medicare [id number] 2000 Unknown [id number] 1940 Unknown [id number] 1940 Unknown [id number] Medicare [id number] Unknown [id number] Unknown [id number] Unknown [id number] Unknown [id number] Unknown [id number] Social History Date Type Detail Facility Start: 02-15-2018 End: 12-22-2023 Tobacco smoking status MDIS Ex-smoker [facility] Start: 02-15-2018 End: 04-18-2022 Tobacco use and exposure Smokeless tobacco non-user [facility] Start: 10-14-2021 End: 12-28-2024 Alcohol intake Current non-drinker of alcohol (finding) [facility] Start: 1940 Sex Assigned At Not on file C [facility] History of tobacco use Current smoker [facility] Start: 12-08-2021 End: 04-10-2024 Exposure to SARS-CoV-2 (event) Not sure [facility] Start: 10-18-2022 End: 10-29-2022 History of Social function [facility] Work Phone: Start: 10-18-2022 End: 10-29-2022 Tobacco use panel [facility] Work Phone: Start: 03-23-2012 Adult Depression Screening Assessment 0 [facility] Work Phone: (I/We) worried wheth er (my/our) food would run out before (I/we) got money to buy more. Never true [facility] Work Phone: Tobacco smoking stat [facility] Tobacco smoking consumption unknown [facility] Work Phone: Start: 10-18-2022 Alcohol Alcohol [facility] Start: 10-18-2022 Lives Lives [facility] Start: 10-18-2022 Tobacco Use Tobacco Use [facility] Start: 1940 Sex Assigned At Female [facility] Clinical Notes 10-14-2021 to 01-08-2025 Breanna Canseco PA-C - 12/28/2024 8:39 AM Carmelita Rasmussen MA - 12/28/2024 8:14 AM EDTResult Encounter Note - Orquidea Robertson APRN.CNP - 12/22/2024 3:57 PM EDTPatient Instructions Note Date & Type Note Facility 01-08-2025 Progress note [facility] 12-28-2024 Note HNO ID: [id number] Author: BREANNA CANSECO PA-C Service: ? Author Type: Physician Personal Coach Type: Progress Notes Filed: 12/28/2024 08:40 Note [...] these instructions. Informed Consent Consent Obtained: Verbal [place] Protocol A moment to CARE was completed. [...] the bedside nurse for hospitalized patients) applicable. [facility] 12-28-2024 History of Present illness Narrative Associated [...] these instructions. Informed Consent Consent Obtained: Verbal [place] Protocol A moment to CARE was completed. [...] injections bilateral knees. documented in this encounter [facility] 12-28-2024 Note HNO ID: [id number] Author: CARMELITA TRAN MA Service: ? Author Type: Rn Peritoneal Dialysis Type: Progress Notes Filed: 12/28/2024 08:40 Note [...] the pain. Here for injections bilateral knees. [facility] 12-22-2024 Progress note Formatting of t his note might be different from the original. Namebrand Synthroid 25 mcg ordered. [facility] 12-22-2024 Miscellaneous Notes Namebrand Synthroid [...] have been ordered. documented in this encounter [facility] 12-22-2024 Telephone encounter Note Patient was made aware of the results. Patient verbalizes understanding. Patient is asking for name brand only synthroid to be sent to the pharmacy. Her niece suggested it and patient is requesting. Michelle Marie Ma [facility] 12-22-2024 Telephone encounter Note ----- [...] 8:26 PM EDT To: Rosalino Carmona MD [facility] 12-22-2024 Progress note Formatting of [...] Labs and the thyroid have been ordered. [facility] 12-10-2024 Telephone encounter Note Pt called and is notified of providers results and instructions. Pt voices understanding. Gregoria Anderson RN [facility] 12-10-2024 Miscellaneous Notes Pt called and is notified of providers results and instructions. Pt voices understanding. Gregoria Anderson RN Labs are ok except renal function is slightly low. Thyroids is borderline. Push fluids and recheck labs in two weeks. documented in this encounter [facility] 12-10-2024 Telephone encounter Note Labs are ok except renal function is slightly low. Thyroids is borderline. Push fluids and recheck labs in two weeks. [facility] 12-02-2024 Note HNO ID: [id number] Author: ROSALINO CARMONA MD Service: ? Author [...] send lab re (more content not included)... [facility] 12-02-2024 History of Present illness Narrative Tricia [...] to patient) Rosalino Carmona MD Recording using MetaLIN[employer] software for draft documentation of the visit was discussed with the patient/authorized disability representative; all questions welcomed and answered. Patient/authorized disability representative agreed to proceed [1] Social History Tobacco Use Smoking status: Former Smokeless tobacco: Never Vaping Use Vaping status: Never Used Substance Use Topics Alcohol use: No Drug use: No documented in this encounter [facility] 12-02-2024 Instructions Rosalino Carmona MD - 12/02/2024 8:54 AM EDT - Start amoxicillin (mid-range dose) for 7 days for your sinus infection; prescription sent to [facility] in [place]. - Refill your amlodipine, hydralazine, and metoprolol [...] contact the office. documented in this encounter [facility] 09-21-2024 Note HNO ID: [id number] Author: BREANNA CANSECO PA-C Service: ? Author Type: Physician Personal Coach Type: Progress Notes Filed: 09/21/2024 09:10 Note [...] these instructions. Informed Consent Consent Obtained: Verbal [place] Protocol A moment to CARE was completed. [...] the bedside nurse for hospitalized patients) applicable. [facility] 09-21-2024 History of Present illness Narrative Associated [...] these instructions. Informed Consent Consent Obtained: Verbal [place] Protocol A moment to CARE was completed. [...] for injections today. documented in this encounter [facility] 09-21-2024 Note HNO ID: [id number] Author: CARMELITA TRAN MA Service: ? Author Type: Rn Peritoneal Dialysis Type: Progress Notes Filed: 09/21/2024 09:10 Note [...] for the pain. Here for injections today. [facility] 06-08-2024 Note HNO ID: [id number] Author: BREANNA CANSECO PA-C Service: ? Author Type: Physician Personal Coach Type: Progress Notes Filed: 06/08/2024 08:32 Note Text: Large Joint Arthro/Inj: bilateral knee joints Informed Consent Consent Obtained: Verbal [place] Protocol A moment to CARE was completed. [...] Plan of Care Visit completed when applicable [facility] 06-08-2024 History of Present illness Narrative Associated Order(s): Large Joint Arthro/Inj: bilateral knee joints Post-Procedure Diagnose(s): Primary osteoarthritis of both knees Large Joint Arthro/Inj: bilateral knee joints Informed Consent Consent Obtained: Verbal [place] Protocol A moment to CARE was completed. [...] injections bilateral knees documented in this encounter [facility] 06-08-2024 Note HNO ID: [id number] Author: CARMELITA TRAN MA Service: ? Author Type: Rn Peritoneal Dialysis Type: Progress Notes Filed: 06/08/2024 08:32 Note Text: Patient presents with: Right Knee - Follow Up, Injections Left Knee - Follow Up, Injections: 14 weeks post visit OA bilateral knees with injections given Wants injections AMB ROOMING INTAKE FLOWSHEET DATA Patient denies any pain today. Here for cortisone injections bilateral knees [facility] 05-26-2024 Instructions Orquidea Robertson APRN.CNP - 05/26/2024 8:28 AM EST - AMOXICILLIN 875 MG-POTASSIUM CLAVULANATE 125 MG TABLET - Saline nasal spray frequently while on antibiotic - follow up in 6 months documented in this encounter [facility] 05-26-2024 Note HNO ID: [id number] Author: ORQUIDEA ROBERTSON APRN.CNP Service: ? Author [...] as needed for worsening/no improvement. Orquidea Robertson APRN.[facility] 05-26-2024 History of Present illness Narrative [...] as needed for worsening/no improvement. Orquidea Robertson APRN.CARTON MACHINE OPERATOR documented in this encounter [facility] 05-05-2024 Telephone encounter Note Patient informed and verbalized understanding. Cindy Aguiar MA [facility] 05-05-2024 Miscellaneous Notes Patient informed and verbalized understanding. Cindy Aguiar MA Avoid dairy. May not be med related. If continues, needs seen Pt called in and reports she started 2 new heart medications in February Amlodipine and Hydralazine, and she increased her Metoprolol. She said the Bath Solution Maker discontinued her Diltiazem. She though maybe these medication had given her diarrhea, but her Bath Solution Maker didn't think so and told her to [...] he would recommend. documented in this encounter [facility] 05-05-2024 Telephone encounter Note Avoid dairy. May not be med related. If continues, needs seen [facility] 05-05-2024 Telephone encounter Note Pt called in and reports she started 2 new heart medications in February Amlodipine and Hydralazine, and she increased her Metoprolol. She said the Bath Solution Maker discontinued her Diltiazem. She though maybe these medication had given her diarrhea, but her Bath Solution Maker didn't think so and told her to [...] there is something else he would recommend. [facility] 04-29-2024 Telephone encounter Note Pt called and is notified of providers message and instructions. Pt voices understanding. I talked with her and she is going to try the medication and will let provider know how it is going when she comes in for her appointment. Gregoria Anderson RN [facility] 04-29-2024 Miscellaneous Notes Pt called [...] Please advise pt. documented in this encounter [facility] 04-28-2024 Telephone encounter Note That is not a significant side effect. The most common side effect of any medicine is none. That is just listed because someone during the med trials not suprisingly had nose bleeds. That is the danger of reading side effect profiles without having pharmacological background to understand what they mean. [facility] 04-28-2024 Telephone encounter Note Pt [...] to take the sertraline. Please advise pt. [facility] 04-28-2024 History of Present illness [...] Rosalino Carmona MD documented in this encounter [facility] 04-28-2024 Note HNO ID: [id number] Author: ROSALINO CARMONA MD Service: ? Author [...] Z13.31 - DEPRESSION SCREENING Rosalino Carmona MD [facility] 04-10-2024 Telephone encounter Note mammogram [facility] 04-10-2024 Miscellaneous Notes mammogram See mammo results: Scan on 04/10/2024 9:25 AM by Provider, ELY Armendariz: Mammography documented in this encounter [facility] 04-10-2024 Telephone encounter Note See mammo results: Scan on 04/10/2024 9:25 AM by Provider, ELY Armendariz: Mammography [facility] 03-26-2024 Telephone encounter Note Order faxed to as requested. Sent via [employer]. Patient notified. [facility] 03-26-2024 Miscellaneous Notes Order faxed to as requested. Sent via [employer]. Patient notified. Patient calling she received her reminder to get mamm order. She does at [facility] in [place]. Last year was done on 04/09/2023. She wants a 3 D mamm faxed to [phone]. Pending order. Please advise documented in this encounter [facility] 03-25-2024 Telephone encounter Note Patient calling she received her reminder to get mamm order. She does at [facility] in [place]. Last year was done on 04/09/2023. She wants a 3 D mamm faxed to [phone]. Pending order. Please advise [facility] 03-02-2024 Note HNO ID: [id number] Author: BREANNA CANSECO PA-C Service: ? Author Type: Physician Personal Coach Type: Progress Notes Filed: 03/02/2024 09:26 Note Text: Large Joint Arthro/Inj: bilateral knee joints Informed Consent Consent Obtained: Verbal [place] Protocol A moment to CARE was completed. [...] Plan of Care Visit completed when applicable [facility] 03-02-2024 History of Present illness Narrative Associated Order(s): Large Joint Arthro/Inj: bilateral knee joints Post-Procedure Diagnose(s): Primary osteoarthritis of both knees Large Joint Arthro/Inj: bilateral knee joints Informed Consent Consent Obtained: Verbal [place] Protocol A moment to CARE was completed. [...] Days Frequency: Continuous documented in this encounter [facility] 03-02-2024 Note HNO ID: [id number] Author: BERNADINE HOOK LPN Service: ? Author Type: LICENSED NURSE Type: Progress Notes Filed: 03/02/2024 09:26 Note Text: AMB ROOMING INTAKE FLOWSHEET DATA Pain Pain Level: 2 Pain Location: Knee-Right Description: Sore Duration Amount of Time: 1 Duration Units: Days Frequency: Continuous [facility] 01-27-2024 Telephone encounter Note Letter mailed to pt home of results. Maria Dolores Lerma MA [facility] 01-27-2024 Miscellaneous Notes Letter mailed to pt home of results. Maria Dolores Lerma MA ----- Message from Orquidea Robertson sent at 01/27/2024 8:52 AM EDT ----- Labs were okay except that her white blood count was high. We are treating her for bronchitis. This was an expected finding. All other labs were okay. documented in this encounter [facility] 01-27-2024 Telephone encounter Note ----- Message from Orquidea Robertson sent at 01/27/2024 8:52 AM EDT ----- Labs were okay except that her white blood count was high. We are treating her for bronchitis. This was an expected finding. All other labs were okay. [facility] 01-24-2024 Instructions Orquidea Robertson APRN.ALEXX - 01/24/2024 8:25 AM EDT 1) Check labs 2) Doxycycline 100 mg 2 x day 3) Follow up in 3 months documented in this encounter [facility] 01-24-2024 History of Present illness [...] as needed for worsening/no improvement. Orquidea Robertson APRN.CARTON MACHINE OPERATOR documented in this encounter [facility] 01-14-2024 History of Present illness Narrative Transitional Care Management (TCM) Follow-Up Note PCP Update / Actionable Items Future Apts 01/23 Famp Wstr 03/02 ORTHO WSTR N/A - No specialty updates needed Patient Source: Egu-hb-Zwlbxou (OON) Discharge Outreach Summary: Patient states is [...] , no issues, stabl Patient discharged from [facility] Discharge date: 12/23/23 Admitted for: Epistaxi [...] 2024 2:29 PM documented in this encounter [facility] 01-09-2024 Telephone encounter Note Patient notified of provider message and is agreeable to call Dr Lolita Marie MA January 09, 2024 2:57 PM [facility] 01-09-2024 Miscellaneous Notes Patient notified [...] now. Please advise documented in this encounter [facility] 01-09-2024 Telephone encounter Note She follows with Dr. Dunlap. I would prefer that they weigh in on this. [facility] 01-09-2024 Telephone encounter Note Patient calling a week ago Dr Aniya GUEVARA cauterized the bleeding her nose and she had follow up with him today. He said Ok but to check with PCP about restarting the Eliquis. She has been off of the Eliquis for 2 weeks now. Please advise [facility] 01-07-2024 History of Present illness Narrative Transitional Care Management (TCM) Follow-Up Note PCP Update / Actionable Items Day 15 Future Apts 01/23 Famp Wstr 03/02 ORTHO WSTR N/A - No specialty updates needed Patient Source: Vru-ic-Yhuikls (OON) Discharge Outreach Summary: Patient states is [...] , no issues, stabl Patient discharged from [facility] Discharge date: 12/23/23 Admitted for: Epistaxi [...] 2024 6:34 PM documented in this encounter [facility] 12-31-2023 History of Present illness Narrative Transitional Care Management (TCM) Follow-Up Note PCP Update / Actionable Items Day 18 Future Apts 01/23 Famp Wstr 03/02 ORTHO WSTR N/A - No specialty updates needed Patient Source: Lid-zz-Vlgomkf (OON) Discharge Outreach Summary: Patient states is [...] , no issues, stabl Patient discharged from [facility] Discharge date: 12/23/23 Admitted for: Epistaxi [...] 2023 3:39 PM documented in this encounter [facility] 12-30-2023 Telephone encounter Note Tricia Granados (Ledezma: [id number]) SAMANTHA Rx #: [id number] Need Help? Call us at Outcome Approved [...] Request Form (2016 NCPDP) Original Claim Info [id number] IF LEVEL OF CARE CHANGE CALL HELP DESK Pharmacy notified. [facility] 12-30-2023 Miscellaneous Notes Tricia Granados (Ledezma: [id number]) SAMANTHA Rx #: [id number] Need Help? Call us at Outcome Approved on December 26 by [employer] 2017 Approved. This drug has been approved under the [facility] Medicare Part D benefit. Approved quantity: [...] Request Form (2016 NCPDP) Original Claim Info [id number] IF LEVEL OF CARE CHANGE CALL HELP DESK Pharmacy notified. Prior Authorization has been completed online at [employer] for hydroxazine, will await response. LEDEZMA- BNCYDKFG Please keep encounter open until final decision has been received and documented from insurance company. Lynette Weinstein MA documented in this encounter [facility] 12-27-2023 Telephone encounter Note Prior Authorization has been completed online at [employer] for hydroxazine, will await response. LEDEZMA- BNCYDKFG Please keep encounter open until final decision has been received and documented from insurance company. Lynette Weinstein MA [facility] 12-27-2023 Instructions Orquidea Robertson APRN.ALEXX [...] need for anxiety documented in this encounter [facility] 12-27-2023 History of Present illness Narrative This is a 83 year old female who presents today with: Patient presents with: Hospital F/U: [facility] Follow up HISTORY OF PRESENT ILLNESS: Tricia Granados is a 83 year old female. Patient presents with: Hospital F/U: [facility] Follow up Admitted for severe nose [...] Orquideaishmael Robertson APRN.CNP documented in this encounter [facility] 12-26-2023 History of Present illness Narrative Breanna Canseco PA-C Department of Orthopaedics Orthopaedics [address] [address] Dept: [phone] December 26, 2023 CHIEF COMPLAINT: Knee Pain [...] the knees. Mild degenerative change, as described. Section Hand Helper: SKYLER Transcribe Date/Time: Dec 26 2023 1:07P [...] anxiety) This note was partially generated using e-Tag voice recognition system, and there may be some incorrect words, spellings, and punctuation that were not noted in checking the note before saving. Breanna Canseco PA-C documented in this encounter [facility] 12-25-2023 Telephone encounter Note Spoke with patient - she will see Breanna tomorrow at 8:30 and will get an xray prior just to ensure nothing in broken. Pt verbalized understanding. [facility] 12-25-2023 Miscellaneous Notes Spoke with [...] right knee. She was just discharged from [facility] for epistaxis and she has been [...] Alia Rojas LPN documented in this encounter [facility] 12-25-2023 Telephone encounter Note Patient calling and states over the weekend she slipped at home and landed on her knees and she has been unable to bear weight on her right knee. She was just discharged from [facility] for epistaxis and she has been [...] is indicated? Please advise. Alia Rojas LPN [facility] 12-24-2023 History of Present illness [...] Readmission Risk Score: n/a Patient's zip code: [address] Is zip code within program service area: No Patient meets program referral criteria: No Patient does not qualify for High Risk TCM Home Visit program due to: Readmission Risk Score does not meet criteria Disposition: Patient does not qualify for HRTIC, will provide TCM outreach follow-up for 30-days Patient Source: [id number] (OON) Discharge Outreach Summary: Patient states is feeling same Patient states that she has a lot of anxiety was on Xanax wants a refill will route to PCP, send to [facility] [address] Left nares packing, oozing [...] , no issues, stable Patient discharged from [facility] Discharge date: 12/23/23 Admitted for: Epistaxi Readmission Risk: n/a Value-Based Contract: ACO Contact: Contact made with patient: Yes Hi, my name is Cherelle Rush RN and I am calling from the [facility] on behalf of your Primary [...] like to speak with a social work sales floor team member to help give you support for any [...] I will send your request to a svp research & ebusiness operations who will contact and assist you with [...] 2023 1:31 PM documented in this encounter [facility] 12-20-2023 Telephone encounter Note Rescheduled. [facility] 12-20-2023 Miscellaneous Notes Rescheduled. She should follow up with one of us before the five days is up. Patient calls and states that she was seen in [facility] ER for a nosebleed this morning. Patient states that [facility] ER had called Dr. Mcnulty's office and the doctor instructional consultant had told patient to hold the Eliquis x [address] Carmona advise on what to do with Eliquis after 5 days. Patient calling and asking for Dr. Carmona's advise on this. Patient is scheduled for ER follow up with Dr. Carmona on Tuesday 12/26. Shanna Parkinson RN documented in this encounter [facility] 12-20-2023 Telephone encounter Note She should follow up with one of us before the five days is up. [facility] 12-20-2023 Telephone encounter Note Patient calls and states that she was seen in [facility] ER for a nosebleed this morning. Patient states that [facility] ER had called Dr. Mcnulty's office and the doctor instructional consultant had told patient to hold the Eliquis x [address] Carmona advise on what to do with Eliquis after 5 days. Patient calling and asking for Dr. Carmona's advise on this. Patient is scheduled for ER follow up with Dr. Carmona on Tuesday 12/26. Shanna Parkinson RN [facility] 11-25-2023 History of Present illness Narrative Associated Order(s): Large Joint Arthro/Inj: bilateral knee joints Post-Procedure Diagnose(s): Primary osteoarthritis of both knees; Chronic pain of both knees Breanna Canseco PA-C Department of Orthopaedics Orthopaedics [address] [facility] [address] Dept: [phone] Dept November 25, 2023 CHIEF COMPLAINT: Follow [...] knee joints Informed Consent Consent Obtained: Verbal [place] Protocol A moment to CARE was completed. [...] Caffeine This note was partially generated using e-Tag voice recognition system, and there may be [...] to discuss options. documented in this encounter [facility] 11-25-2023 History of Present illness [...] PATIENT PRESENTS WITH AN IMPLANTABLE OR ATTACHED STONE BANKER: No RADIOLOGY DEPARTMENT: General X-ray: Exam(s) Completed: Lower Extremity X-Ray(s): Knee, AP / Lat / Tunne / Merchant Bilateral and Wt. Bearing PERIPHERAL IV DATA: Not applicable SIGNED BY: RT Agapito(R) November 25, 2023 9:52 AM documented in this encounter [facility] 08-19-2023 History of Present illness Narrative Associated Order(s): Large Joint Arthro/Inj: bilateral knee joints Post-Procedure Diagnose(s): Primary osteoarthritis of both knees; Chronic pain of both knees Large Joint Arthro/Inj: bilateral knee joints Informed Consent Consent Obtained: Verbal [place] Protocol A moment to CARE was completed. [...] Sabiha Chew MA documented in this encounter [facility] 02-25-2023 Miscellaneous Notes Order faxed to [phone]. Randall Purcell Order placed. Please fax as requested. Please remind patient that is should not be done until at least 04/04/23. Keturah Velasco APRN.CARTON MACHINE OPERATOR Care everywhere shows it was completed 04/03/22 Patient is calling requesting order for Mammography to be placed and faxed to in [place]. Patient states she did complete in 2021 but do not see these reports in [facility]. documented in this encounter [facility] 02-04-2023 History of Present illness Narrative Associated Order(s): Large Joint Arthro/Inj: bilateral knee joints Post-Procedure Diagnose(s): Primary osteoarthritis of both knees Large Joint Arthro/Inj: bilateral knee joints Informed Consent Consent Obtained: Verbal [place] Protocol A moment to CARE was completed. [...] for the pain. documented in this encounter [facility] 10-29-2022 History of Present illness Narrative Associated Order(s): Large Joint Arthro/Inj: bilateral knee joints Post-Procedure Diagnose(s): Primary osteoarthritis of both knees Large Joint Arthro/Inj: bilateral knee joints Informed Consent Consent Obtained: Verbal [place] Protocol A moment to CARE was completed. [...] X-rays done today. documented in this encounter [facility] 10-18-2022 History of Present illness [...] her knees. Feels much better. Still seeing [facility] for her heart. No bleeding or [...] months and prn. documented in this encounter [facility] 10-15-2022 Miscellaneous Notes Call to pt and notified her of Providers response below, verbalized understanding. Izzy Sullivan Ma ----- Message from Britney Ramos PA-C sent at 10/14/2022 12:28 PM EDT ----- Please let her know labs are stable/ good range. Thanks, Ed Ramos PA-C documented in this encounter [facility] 07-16-2022 History of Present illness Narrative Associated Order(s): Large Joint Arthro/Inj: bilateral knee joints Post-Procedure Diagnose(s): Primary osteoarthritis of both knees; Chronic pain of both knees Breanna Canseco PA-C Department of Orthopaedics [facility] [address] [facility] [address] Dept: [phone] Dept July 16, 2022 CHIEF COMPLAINT: Established [...] knee joints Informed Consent Consent Obtained: Verbal [place] Protocol A moment to CARE was completed. [...] Caffeine This note was partially generated using e-Tag voice recognition system, and there may be [...] injection again today. documented in this encounter [facility] 04-19-2022 Miscellaneous Notes Pt called [...] signs of infection. documented in this encounter [facility] 04-18-2022 Miscellaneous Notes Addended by: ROSALINO CARMONA on: 04/18/2022 11:28 AM Modules accepted: Orders Addended by: LYNETTE WEINSTEIN MA on: 04/18/2022 11:21 AM Modules accepted: Orders documented in this encounter [facility] 04-18-2022 Instructions Rosalino Carmona MD - 04/18/2022 10:39 AM EST Mucinex or coricidin hbp for congestion. documented in this encounter [facility] 04-18-2022 History of Present illness [...] plan. Rosalino Carmona documented in this encounter [facility] 03-12-2022 Miscellaneous Notes Faxed and patient informed. Cindy Aguiar done Patient is calling requesting PCP place joel screening mammography order and fax to in [place]. documented in this encounter [facility] 03-12-2022 History of Present illness Narrative Associated Order(s): Large Joint Arthro/Inj: bilateral knee joints Post-Procedure Diagnose(s): Primary osteoarthritis of both knees; Chronic pain of both knees Large Joint Arthro/Inj: bilateral knee joints Informed Consent Consent Obtained: Verbal [place] Protocol A moment to CARE was completed. [...] both knees today. documented in this encounter [facility] 12-18-2021 History of Present illness Narrative Associated Order(s): Large Joint Arthro/Inj: bilateral knee joints Post-Procedure Diagnose(s): Chronic pain of both knees; Primary osteoarthritis of both knees Breanna Canseco PA-C Department of Orthopaedics Orthopaedics [address] [place] [address] Dept: [phone] Dept December 18, 2021 CHIEF COMPLAINT: New [...] knee joints Informed Consent Consent Obtained: Verbal [place] Protocol A moment to CARE was completed. [...] Stable degenerative changes as detailed in report. Section Hand Helper: SKYLER Transcribe Date/Time: Oct 15 2021 9:25A [...] anxiety) This note was partially generated using e-Tag voice recognition system, and there may be some incorrect words, spellings, and punctuation that were not noted in checking the note before saving. Breanna Canseco PA-C Patient presents with: Left Knee - New, Knee Pain Right Knee - New, Knee Pain: Bilateral knee pain- Ref Dr. Shaggy fonseca 10/14/21 [facility] INTAKE FLOWSHEET DATA Risk Screening Do [...] knees during movement. documented in this encounter [facility] 12-18-2021 History of Present illness [...] 2021 10:20 AM documented in this encounter [facility] 10-14-2021 History of Present illness [...] 2021 8:51 AM documented in this encounter [facility] 10-14-2021 History of Present illness Narrative Patient presents with: 6 Month Exam HPI: Patient presents today for office visit for follow up. HYPERTENSION:no chest pain. Denies palpitations Denies shortness of breath. CARDIO:follows with [facility](Dr. Mchugh) Denies dizziness. PSYCH:oarrs done. Has not filled xanax in some time. Is anxious. Her brother is passing away. He is in [place]. Feels she is doing ok. ANTICOAG:no bleeding [...] Abs Lymph 1.00 - 4.00 k/uL 2.57 Bremer% % 8.2 Abs Bremer <0.87 k/uL 0.71 Eosin% % 3.0 Abs [...] months and prn. documented in this encounter [facility] Evaluation note Diagnosis Paroxysmal atrial fibrillation (HCC)- Primary Atrial fibrillation Primary hypertension Unspecified essential hypertension Stage 3a chronic kidney disease (HCC) Chronic anticoagulation Long-term (current) use of anticoagulants Anxiety Anxiety state, unspecified Chronic pain of both knees [facility] Diagnosis Primary osteoarthritis of both knees- Primary Primary localized osteoarthrosis, lower leg Chronic pain of both knees [facility] Diagnosis Chronic pain of both knees documented in this encounter [facility] note* Diagnosis Chronic pain of both knees- Primary Primary osteoarthritis of both knees Primary localized osteoarthrosis, lower leg [facility] Diagnosis Encounter for screening mammogram for malignant neoplasm of breast- Primary Other screening mammogram [facility] Diagnosis Paroxysmal atrial fibrillation (HCC)- Primary Atrial fibrillation LBBB (left bundle branch block) Other left bundle branch block Primary hypertension Unspecified essential hypertension Stage 3a chronic kidney disease (HCC) Chronic anticoagulation Long-term (current) use of anticoagulants Anxiety Anxiety state, unspecified Bacterial sinusitis Unspecified sinusitis (chronic) [facility] Diagnosis Leukocytosis, unspecified type- Primary [facility] Diagnosis Chronic pain of both knees- Primary Primary osteoarthritis of both knees Primary localized osteoarthrosis, lower leg [facility] Diagnosis Pain in both knees, unspecified chronicity- Primary [facility] Diagnosis Paroxysmal atrial fibrillation (HCC)- Primary Atrial fibrillation Primary hypertension Unspecified essential hypertension Stage 3a chronic kidney disease (HCC) Chronic anticoagulation Long-term (current) use of anticoagulants Anxiety Anxiety state, unspecified [facility] Diagnosis Primary osteoarthritis of both knees- Primary Primary localized osteoarthrosis, lower leg [facility] Diagnosis Encounter for screening mammogram for malignant neoplasm of breast- Primary Other screening mammogram [facility] Diagnosis Primary osteoarthritis of both knees- Primary Primary localized osteoarthrosis, lower leg Chronic pain of both knees [facility] Diagnosis Primary osteoarthritis of both knees- Primary Primary localized osteoarthrosis, lower leg Chronic pain of both knees [facility] Diagnosis Primary osteoarthritis of both knees Primary localized osteoarthrosis, lower leg Chronic pain of both knees [facility] Diagnosis Acute pain of both knees- Primary [facility] Diagnosis Primary osteoarthritis of both knees- Primary Primary localized osteoarthrosis, lower leg Chronic pain of both knees Fall, initial encounter [facility] Diagnosis Acute pain of both knees documented [facility] this [facility]* Diagnosis Primary hypertension- Primary Unspecified essential hypertension Paroxysmal atrial fibrillation (HCC) Atrial fibrillation Chronic anticoagulation Long-term (current) use of anticoagulants Anxiety Anxiety state, unspecified Stage 3a chronic kidney disease (HCC) Pain in both knees, unspecified chronicity Epistaxis [facility] Diagnosis Chronic pain of both knees [facility]* Diagnosis Anxiety- Primary Anxiety state, unspecified Acute bronchitis, unspecified organism Primary hypertension Unspecified essential hypertension Chronic fatigue Other malaise and fatigue Stage 3a chronic kidney disease (HCC) Chronic anticoagulation Long-term (current) use of anticoagulants Screening for lipid disorders Paroxysmal atrial fibrillation (HCC) Atrial fibrillation Disorder of iron metabolism, unspecified documented in this encounter [facility] note* Diagnosis Primary osteoarthritis of both knees- Primary Primary localized osteoarthrosis, lower leg documented [facility] this [facility]* Diagnosis Screening mammogram for breast cancer- Primary [facility]* Diagnosis Encounter for screening mammogram for malignant neoplasm of breast documented in this encounter [facility] Work Phone: Evaluation note* Diagnosis Paroxysmal atrial fibrillation (HCC)- Primary Atrial fibrillation Primary hypertension Unspecified essential hypertension Stage 3a chronic kidney disease (HCC) Chronic anticoagulation Long-term (current) use of anticoagulants Anxiety Anxiety state, unspecified Screening for depression documented in this [facility]* Diagnosis Acute recurrent maxillary sinusitis- Primary Acute maxillary sinusitis Anxiety Anxiety state, unspecified Primary hypertension Unspecified essential hypertension [facility]* Diagnosis Primary osteoarthritis of both knees- Primary Primary localized osteoarthrosis, lower leg [facility]* Diagnosis Primary hypertension- Primary Unspecified essential hypertension Paroxysmal atrial fibrillation (HCC) Atrial fibrillation Chronic anticoagulation Long-term (current) use of anticoagulants Anxiety Anxiety state, unspecified Bacterial sinusitis Unspecified sinusitis (chronic) Fatigue, unspecified type documented in this [facility]* Diagnosis Renal insufficiency- Primary Unspecified disorder of kidney and ureter Hypothyroidism, acquired Unspecified hypothyroidism [facility] Diagnosis Hyponatremia- Primary Hyposmolality and/or hyponatremia Hypothyroidism, acquired Unspecified hypothyroidism [facility] Diagnosis Primary osteoarthritis of both knees- Primary Primary localized osteoarthrosis, lower leg [facility] Diagnosis Onset Date Resolution Status Admit Date Essential (primary) hypertension chronic January 08, 2025 10:02am Longstanding persistent atrial fibrillation chronic January 082024 10:02am [facility] Work Phone: Progress note Author Demetrice Greer [facility] Note Date/Time January 08, 2025 10:49am [facility] [address] [place] [address] OFFICE VISIT Date of Service: 01/08/25 MR#: [id number] Acct: [id number] Name: TRICIA GRANADOS Rep #: [id number] : 1940 Provider: SAMANTHA Oconnor Age/Sex: 84/F Location[place] [facility] Status: Signed HPI HPI History of [...] 97 Intake Visit Reasons: 6 M FU Physician Intensivist Required: No Is patient in pain?: No [...] Follow Up: 01/08/25 (Keep as is with FORM COVERER) Coding Level of Care Code Off vis,est,level [...] Cosigner Signature: Date (if applicable) CC: ~ Russell [employer] Work Phone: [employer] for referral (narrative)* Diagnostic Procedure Only (Routine) - Closed Specialty Diagnoses / Procedures Referred By Gissell russell Referred To Contact XR IMAGING Diagnoses Chronic pain of both knees Procedures XR LUMBAR GENERAL 3V AP/LAT/L5-S1 RADEX SPINE LUMBOSACRAL 2/3 VIEWS Braenna Canseco PA-C [address] [place] [address] Xr Imaging Referral ID Status Reason Start Date Expiration Date V isits Requested Visits Authorized [id number] Closed Auto-Generate d Referral 12/18/2021 01/17/2023 1 1 T [facility] for referral (narrative)* Diagnostic Procedure Only (Routine) - Closed Specialty Diagnoses / Procedures Referred By Gissell russell Referred To Contact XR IMAGING Diagnoses Chronic pain of both knees Procedures XR LUMBAR GENERAL 3V AP/LAT/L5-S1 RADEX SPINE LUMBOSACRAL 2/3 VIEWS Breanna Canseco PA-C [address] [place] [address] Xr Imaging Referral ID Status Reason Start Date Expiration Date V isits Requested Visits Authorized [id number] Closed Auto-Generate d Referral 12/18/2021 01/17/2023 1 1 [facility] for referral (narrative)* Diagnostic Procedure Only (Routine) - Pending Review Specialty Diagnoses / Procedures Referred By Gissell russell Referred To Contact BR IMAGING Diagnoses Encounter for screening mammogram for malignant neoplasm of breast Procedures MC SCREENING W JOEL SCREENING DIGITAL BREAST TOMOSYNTHESIS BI SCREENING MAMMOGRAPHY BI 2-VIEW BREAST INC CAD Kristine, Rosalino Calloway MD [address] [place] [address] [facility] [address] [place] [address] Referral ID Status Reason Start Date Expiration Date Visits Requested Visits Authorized [id number] Pending Review Auto-Generat ed Referral 2 04/11/2023 1 1 [facility] for referral (narrative)* Diagnostic Procedure Only (Routine) - Pending Review Specialty Diagnoses / Procedures Referred By Gissell russell Referred To Contact XR IMAGING Diagnoses Pain in both knees, unspecified chronicity Procedures XR KNEE GENERAL 4V AP BOTH/PA BOTH/LAT/MERC BILATERAL RADIOLOGIC EXAM KNEE COMPLETE 4/MORE VIEWS Breanna Canseco PA-C [address] [place] [address] Xr Imaging Referral ID Status Reason Start Date Expiration Date Visits Requested Visits Authorized [id number] Pending Review Auto-Generat ed Referral 10/17/2022 11/16/2023 1 1 [facility] for referral (narrative)* Diagnostic Procedure Only (Routine) - Pending Review Specialty Diagnoses / Procedures Referred By Contac t Referred To Contact BR IMAGING Diagnoses Encounter for screening mammogram for malignant neoplasm of breast Procedures MC SCREENING W JOEL SCREENING DIGITAL BREAST TOMOSYNTHESIS BI SCREENING MAMMOGRAPHY BI 2-VIEW BREAST INC CAD Rosalino Carmona MD [address] [place] [address] [facility] [address] [place] [address] Referral ID Status Reason Start Date Expiration Date Visits Requested Visits Authorized [id number] Pending Review Auto-Generat ed Referral 02/25/2023 03/26/2024 1 1 [facility] for referral (narrative)* Diagnostic Procedure Only (Routine) - Closed Specialty Diagnoses / Procedures Referred By Gissell russell Referred To Contact XR IMAGING Diagnoses Primary osteoarthritis of both knees Chronic pain of both knees Procedures XR KNEE GENERAL 4V AP BOTH/PA BOTH/LAT/MERC BILATERAL RADIOLOGIC EXAM KNEE COMPLETE 4/MORE VIEWS Breanna Canseco PA-C [address] [place] [address] [place] [address] Referral ID Status Reason Start Date Expiration Date V isits Requested Visits Authorized [id number] Closed Auto-Generate d Referral 11/25/2023 12/24/2024 1 1 [facility] for referral (narrative)* Diagnostic Procedure Only (Routine) - New Request Specialty Diagnoses / Procedures Referred By Gissell russell Referred To Contact XR IMAGING Diagnoses Acute pain of both knees Procedures XR KNEE GENERAL 4V AP BOTH/PA BOTH/LAT/MERC BILATERAL RADIOLOGIC EXAM KNEE COMPLETE 4/MORE VIEWS Breanna Canseco PA-C [address] [place] [address] [place] [address] Referral ID Status Reason Start Date Expiration Date Visits Requested Visits Authorized [id number] New Request Auto-Generat ed Referral 12/25/2023 01/23/2025 1 1 [facility] for referral (narrative)* Diagnostic Procedure Only (Routine) - Closed Specialty Diagnoses / Procedures Referred By Gissell russell Referred To Contact XR IMAGING Diagnoses Acute pain of both knees Procedures XR KNEE GENERAL 4V AP BOTH/PA BOTH/LAT/MERC BILATERAL RADIOLOGIC EXAM KNEE COMPLETE 4/MORE VIEWS Breanna Canseco PA-[place] [address] [place] [address] Referral ID Status Reason Start Date Expiration Date V isits Requested Visits Authorized [id number] Closed Auto-Generate d Referral 12/25/2023 01/23/2025 1 1 [facility] for referral (narrative)* Diagnostic Procedure Only (Routine) - Closed Specialty Diagnoses / Procedures Referred By Gissell russell Referred To Contact XR IMAGING Diagnoses Chronic pain of both knees Procedures XR KNEE GENERAL 4V AP BOTH/PA BOTH/LAT/MERC BILATERAL RADIOLOGIC EXAM KNEE COMPLETE 4/MORE VIEWS Rosalino Carmona MD [facility] [place] [address] Xr Imaging [facility] Referral ID Status Reason Start Date Expiration Date V isits Requested Visits Authorized [id number] Closed Auto-Generate d Referral 10/14/2021 11/13/2022 1 1 [facility] [facility] Diagnostic Procedure Only (Routine) - New Request Specialty Diagnoses / Procedures Referred By Gissell russell Referred To Contact BR IMAGING Diagnoses Screening mammogram for breast cancer Procedures MC SCREENING W JOEL SCREENING DIGITAL BREAST TOMOSYNTHESIS BI SCREENING MAMMOGRAPHY BI 2-[place] [address] [place] [address] [facility] [address] [place] [address] Referral ID Status Reason Start Date Expiration Date Visits Requested Visits Authorized [id number] New Request Auto-Generat ed Referral 03/25/2024 04/24/2025 1 1 [facility] for referral (narrative)No reason for [facility] Narrative* Diagnostic Procedure Only (Routine) - Closed Specialty Diagnoses / Procedures Referred By Contac t Referred To Contact XR IMAGING Diagnoses Chronic pain of both knees Procedures XR LUMBAR GENERAL 3V AP/LAT/L5-S1 RADEX SPINE LUMBOSACRAL 2/3 VIEWS Vetovitz, Breanna, PA-C [address] [place] [address] Xr Imaging Referral ID Status Reason Start Date Expiration Date V isits Requested Visits Authorized [id number] Closed Auto-Generate d Referral 12/18/2021 01/17/2023 1 1 [facility] for visit Narrative* Diagnostic Procedure Only (Routine) - Closed Specialty Diagnoses / Procedures Referred By Contac t Referred To Contact XR IMAGING Diagnoses Primary osteoarthritis of both knees Chronic pain of both knees Procedures XR KNEE GENERAL 4V AP BOTH/PA BOTH/LAT/MERC BILATERAL RADIOLOGIC EXAM KNEE COMPLETE 4/MORE VIEWS Vetovilawanda, Breanna, PA-C [address] [place] [address] [place] [address] Referral ID Status Reason Start Date Expiration Date V isits Requested Visits Authorized [id number] Closed Auto-Generate d Referral 11/25/2023 12/24/2024 1 1 [facility] for visit Narrative* Diagnostic Procedure Only (Routine) - Closed Specialty Diagnoses / Procedures Referred By Contac t Referred To Contact XR IMAGING Diagnoses Acute pain of both knees Procedures XR KNEE GENERAL 4V AP BOTH/PA BOTH/LAT/MERC BILATERAL RADIOLOGIC EXAM KNEE COMPLETE 4/MORE VIEWS Vetovitz, Breanna, PA-C [address] [place] [address] [place] [address] Referral ID Status Reason Start Date Expiration Date V isits Requested Visits Authorized [id number] Closed Auto-Generate d Referral 12/25/2023 01/23/2025 1 1 [facility] for visit Narrative* Diagnostic Procedure Only (Routine) - Closed Specialty Diagnoses / Procedures Referred By Contac t Referred To Contact XR IMAGING Diagnoses Chronic pain of both knees Procedures XR KNEE GENERAL 4V AP BOTH/PA BOTH/LAT/MERC BILATERAL RADIOLOGIC EXAM KNEE COMPLETE 4/MORE VIEWS Rosalino Carmona MD [address] [place] [address] [place] [address] Referral ID Status Reason Start Date Expiration Date V isits Requested Visits Authorized [id number] Closed Auto-Generate d Referral 10/14/2021 11/13/2022 1 1 [facility] for visit Narrative* Imaging (Routine) - Authorized Specialty Diagnoses / Procedures Referred By Gissell t Referred To Contact Radiology Diagnoses Encounter for screening mammogram for malignant neoplasm of breast Procedures BI mammo bilateral screening tomosynthesis Rosalino Carmona MD [address] [place] [address] Phone: tel: fax: Referral ID Status Reason Start Date Expiration Date Visits Requested Visits Authorized [id number] Authorized Perform Procedure 03/27/2024 03/27/2025 1 1 [facility] Work Phone: Summary Purpose Family History No [...] HIGH MDM 60-74 MINUTES Rosalino Carmona MD [address] [place] [address] Referral ID Status Reason Start Date Expiration Date Visits Requested Visits Authorized [id number] Authorized PCP Requested Referral 10/14/2021 10/14/2022 1 1 Specialty Diagnoses / Procedures Referred By Contac t Referred To Contact XR IMAGING Diagnoses Chronic pain of both knees Procedures XR KNEE GENERAL 4V AP BOTH/PA BOTH/LAT/MERC BILATERAL RADIOLOGIC EXAM KNEE COMPLETE 4/MORE VIEWS Rosalino Carmona MD [address] [place] [address] Xr Imaging Referral ID Status Reason Start Date Expiration Date V isits Requested Visits Authorized [id number] Closed Auto-Generate d Referral 10/14/2021 11/13/2022 1 1 Specialty Diagnoses / Procedures Referred By Contleyda t Referred To Contact Diagnoses Anxiety Daquan, Orquidea Marcus, PARTITION ASSEMBLY MACHINE OPERATOR.CARTON MACHINE OPERATOR [address] [place] [address] Referral ID Status Reason Start Date Expiration Date Visits Re quested Visits Authorized [id number] Closed 1 1 Medications Administered Section Inactive [...] section and content) DATE CREATED AUTHOR 12/16/2017 [facility] DATE CREATED AUTHOR AUTHOR'S ORGANIZ ATION 01/02/2019 [facility] DATE CREATED AUTHOR AUTHOR'S ORGANIZ ATION 04/11/2022 [facility] DATE CREATED AUTHOR AUTHOR'S ORGANIZ ATION 12/27/2023 [facility] DATE CREATED AUTHOR AUTHOR'S ORGANIZ ATION 04/13/2024 [facility] DATE CREATED AUTHOR AUTHOR'S ORGANIZ ATION 01/09/2025 [facility] DATE CREATED AUTHOR AUTHOR'S ORGANBRONWYN ATION 02/12/2025 [facility] Source Comments (unrecognize d section and content) In the event this informatio n is protected by the Federal Confidentiality of Alcohol and Drug Abuse Patient Records regulations: The Federal rules restrict any use of the information to criminally investigate or prosecute any alcohol or drug abuse patient.[facility] the event this information is protected by the Federal Confidentiality of Alcohol and Drug Abuse Patient Records regulations: The Federal rules restrict any use of the information to criminally investigate or prosecute any alcohol or drug abuse patient.[facility] CenterIn the event this information is protected by the Federal Confidentiality of Alcohol and Drug Abuse Patient Records regulations: The Federal rules restrict any use of the information to criminally investigate or prosecute any alcohol or drug abuse patient.[facility] CenterIn the event this information is protected by the Federal Confidentiality of Alcohol and Drug Abuse Patient Records regulations: The Federal rules restrict any use of the information to criminally investigate or prosecute any alcohol or drug abuse patient.[facility] CenterIn the event this information is protected by the Federal Confidentiality of Alcohol and Drug Abuse Patient Records regulations: The Federal rules restrict any use of the information to criminally investigate or prosecute any alcohol or drug abuse patient.[facility] CenterIn the event this information is protected by the Federal Confidentiality of Alcohol and Drug Abuse Patient Records regulations: The Federal rules restrict any use of the information to criminally investigate or prosecute any alcohol or drug abuse patient.[facility] CenterIn the event this information is protected by the Federal Confidentiality of Alcohol and Drug Abuse Patient Records regulations: The Federal rules restrict any use of the information to criminally investigate or prosecute any alcohol or drug abuse patient.[facility] CenterIn the event this information is protected by the Federal Confidentiality of Alcohol and Drug Abuse Patient Records regulations: The Federal rules restrict any use of the information to criminally investigate or prosecute any alcohol or drug abuse patient.[facility] CenterIn the event this information is protected by the Federal Confidentiality of Alcohol and Drug Abuse Patient Records regulations: The Federal rules restrict any use of the information to criminally investigate or prosecute any alcohol or drug abuse patient.[facility] CenterIn the event this information is protected by the Federal Confidentiality of Alcohol and Drug Abuse Patient Records regulations: The Federal rules restrict any use of the information to criminally investigate or prosecute any alcohol or drug abuse patient.[facility] CenterIn the event this information is protected by the Federal Confidentiality of Alcohol and Drug Abuse Patient Records regulations: The Federal rules restrict any use of the information to criminally investigate or prosecute any alcohol or drug abuse patient.[facility] CenterIn the event this information is protected by the Federal Confidentiality of Alcohol and Drug Abuse Patient Records regulations: The Federal rules restrict any use of the information to criminally investigate or prosecute any alcohol or drug abuse patient.[facility] CenterIn the event this information is protected by the Federal Confidentiality of Alcohol and Drug Abuse Patient Records regulations: The Federal rules restrict any use of the information to criminally investigate or prosecute any alcohol or drug abuse patient.[facility] CenterIn the event this information is protected by the Federal Confidentiality of Alcohol and Drug Abuse Patient Records regulations: The Federal rules restrict any use of the information to criminally investigate or prosecute any alcohol or drug abuse patient.[facility] CenterIn the event this information is protected by the Federal Confidentiality of Alcohol and Drug Abuse Patient Records regulations: The Federal rules restrict any use of the information to criminally investigate or prosecute any alcohol or drug abuse patient.[facility] CenterIn the event this information is protected by the Federal Confidentiality of Alcohol and Drug Abuse Patient Records regulations: The Federal rules restrict any use of the information to criminally investigate or prosecute any alcohol or drug abuse patient.[facility] CenterIn the event this information is protected by the Federal Confidentiality of Alcohol and Drug Abuse Patient Records regulations: The Federal rules restrict any use of the information to criminally investigate or prosecute any alcohol or drug abuse patient.[facility] CenterIn the event this information is protected by the Federal Confidentiality of Alcohol and Drug Abuse Patient Records regulations: The Federal rules restrict any use of the information to criminally investigate or prosecute any alcohol or drug abuse patient.[facility] CenterIn the event this information is protected by the Federal Confidentiality of Alcohol and Drug Abuse Patient Records regulations: The Federal rules restrict any use of the information to criminally investigate or prosecute any alcohol or drug abuse patient.[facility] CenterIn the event this information is protected by the Federal Confidentiality of Alcohol and Drug Abuse Patient Records regulations: The Federal rules restrict any use of the information to criminally investigate or prosecute any alcohol or drug abuse patient.[facility] CenterIn the event this information is protected by the Federal Confidentiality of Alcohol and Drug Abuse Patient Records regulations: The Federal rules restrict any use of the information to criminally investigate or prosecute any alcohol or drug abuse patient.[facility] CenterIn the event this information is protected by the Federal Confidentiality of Alcohol and Drug Abuse Patient Records regulations: The Federal rules restrict any use of the information to criminally investigate or prosecute any alcohol or drug abuse patient.[facility] CenterIn the event this information is protected by the Federal Confidentiality of Alcohol and Drug Abuse Patient Records regulations: The Federal rules restrict any use of the information to criminally investigate or prosecute any alcohol or drug abuse patient.[facility] CenterIn the event this information is protected by the Federal Confidentiality of Alcohol and Drug Abuse Patient Records regulations: The Federal rules restrict any use of the information to criminally investigate or prosecute any alcohol or drug abuse patient.[facility] CenterIn the event this information is protected by the Federal Confidentiality of Alcohol and Drug Abuse Patient Records regulations: The Federal rules restrict any use of the information to criminally investigate or prosecute any alcohol or drug abuse patient.[facility] CenterIn the event this information is protected by the Federal Confidentiality of Alcohol and Drug Abuse Patient Records regulations: The Federal rules restrict any use of the information to criminally investigate or prosecute any alcohol or drug abuse patient.[facility] CenterIn the event this information is protected by the Federal Confidentiality of Alcohol and Drug Abuse Patient Records regulations: The Federal rules restrict any use of the information to criminally investigate or prosecute any alcohol or drug abuse patient.[facility] CenterIn the event this information is protected by the Federal Confidentiality of Alcohol and Drug Abuse Patient Records regulations: The Federal rules restrict any use of the information to criminally investigate or prosecute any alcohol or drug abuse patient.[facility] CenterIn the event this information is protected by the Federal Confidentiality of Alcohol and Drug Abuse Patient Records regulations: The Federal rules restrict any use of the information to criminally investigate or prosecute any alcohol or drug abuse patient.[facility] CenterIn the event this information is protected by the Federal Confidentiality of Alcohol and Drug Abuse Patient Records regulations: The Federal rules restrict any use of the information to criminally investigate or prosecute any alcohol or drug abuse patient.[facility] CenterIn the event this information is protected by the Federal Confidentiality of Alcohol and Drug Abuse Patient Records regulations: The Federal rules restrict any use of the information to criminally investigate or prosecute any alcohol or drug abuse patient.[facility] CenterIn the event this information is protected by the Federal Confidentiality of Alcohol and Drug Abuse Patient Records regulations: The Federal rules restrict any use of the information to criminally investigate or prosecute any alcohol or drug abuse patient.[facility] CenterIn the event this information is protected by the Federal Confidentiality of Alcohol and Drug Abuse Patient Records regulations: The Federal rules restrict any use of the information to criminally investigate or prosecute any alcohol or drug abuse patient.[facility] CenterIn the event this information is protected by the Federal Confidentiality of Alcohol and Drug Abuse Patient Records regulations: The Federal rules restrict any use of the information to criminally investigate or prosecute any alcohol or drug abuse patient.[facility] CenterIn the event this information is protected by the Federal Confidentiality of Alcohol and Drug Abuse Patient Records regulations: The Federal rules restrict any use of the information to criminally investigate or prosecute any alcohol or drug abuse patient.[facility] CenterIn the event this information is protected by the Federal Confidentiality of Alcohol and Drug Abuse Patient Records regulations: The Federal rules restrict any use of the information to criminally investigate or prosecute any alcohol or drug abuse patient.[facility] CenterIn the event this information is protected by the Federal Confidentiality of Alcohol and Drug Abuse Patient Records regulations: The Federal rules restrict any use of the information to criminally investigate or prosecute any alcohol or drug abuse patient.[facility] CenterIn the event this information is protected by the Federal Confidentiality of Alcohol and Drug Abuse Patient Records regulations: The Federal rules restrict any use of the information to criminally investigate or prosecute any alcohol or drug abuse patient.[facility] CenterIn the event this information is protected by the Federal Confidentiality of Alcohol and Drug Abuse Patient Records regulations: The Federal rules restrict any use of the information to criminally investigate or prosecute any alcohol or drug abuse patient.[facility] CenterIn the event this information is protected by the Federal Confidentiality of Alcohol and Drug Abuse Patient Records regulations: The Federal rules restrict any use of the information to criminally investigate or prosecute any alcohol or drug abuse patient.[facility] CenterIn the event this information is protected by the Federal Confidentiality of Alcohol and Drug Abuse Patient Records regulations: The Federal rules restrict any use of the information to criminally investigate or prosecute any alcohol or drug abuse patient.[facility] CenterIn the event this information is protected by the Federal Confidentiality of Alcohol and Drug Abuse Patient Records regulations: The Federal rules restrict any use of the information to criminally investigate or prosecute any alcohol or drug abuse patient.[facility] CenterIn the event this information is protected by the Federal Confidentiality of Alcohol and Drug Abuse Patient Records regulations: The Federal rules restrict any use of the information to criminally investigate or prosecute any alcohol or drug abuse patient.[facility] CenterIn the event this information is protected by the Federal Confidentiality of Alcohol and Drug Abuse Patient Records regulations: The Federal rules restrict any use of the information to criminally investigate or prosecute any alcohol or drug abuse patient.[facility] CenterIn the event this information is protected by the Federal Confidentiality of Alcohol and Drug Abuse Patient Records regulations: The Federal rules restrict any use of the information to criminally investigate or prosecute any alcohol or drug abuse patient.[facility] CenterIn the event this information is protected by the Federal Confidentiality of Alcohol and Drug Abuse Patient Records regulations: The Federal rules restrict any use of the information to criminally investigate or prosecute any alcohol or drug abuse patient.[facility] CenterIn the event this information is protected by the Federal Confidentiality of Alcohol and Drug Abuse Patient Records regulations: The Federal rules restrict any use of the information to criminally investigate or prosecute any alcohol or drug abuse patient.[facility] Reason for Visit (unrecogniz ed [...] MDM 60-74 MINUTES Rosalino Carmona MD [address] [place] [address] Referral ID Status Reason Start Date Expiration Date V isits Requested Visits Authorized [id number] Closed PCP Requested Referral 10/14/2021 10/14/2022 1 [...] Pain Established Patient Reason Comments Hospital [facility] Follow up Reason Comments Insurance Authorization hydroxyzine Reason Onset Date Comments Transition Of Care 12/31/2023 [facility] Follow-up Day 18 Reason Onset Date Comments Transition Of Care 01/07/2024 [facility] Follow-up Day 15 Reason Comments Patient Question Reason Onset Date Comments Transition Of Care 01/14/2024 [facility] Follow-up Day 22 Reason Comments [...] Care Teams (unrecognized sec tion and content) Director Of Federal Sales Relationship Specialty Start Date End Date Rosalino Carmona MD [address] [place] [address] PCP - General Family Practice 02/17/18 Director Of Federal Sales Relationship Specialty Start Date End Date Rosalino Carmona MD [address] [place] [address] PCP - General Family Practice 02/17/18 Director Of Federal Sales Relationship Specialty Start Date End Date Rosalino Carmona MD [address] [place] [address] PCP - General Family Practice 02/17/18 Director Of Federal Sales Relationship Specialty Start Date End Date Rosalino Carmona MD [address] [place] [address] PCP - General Family Medicine 02/17/18 Director Of Federal Sales Relationship Specialty Start Date End Date Rosalino Carmona MD [address] [place] [address] PCP - General Family Medicine 02/17/18 Director Of Federal Sales Relationship Specialty Start Date End Date Rosalino Carmona MD [address] [place] [address] PCP - General Family Medicine 02/17/18 Director Of Federal Sales Relationship Specialty Start Date End Date Rosalino Carmona MD [address] [place] [address] PCP - General Family Medicine 02/17/18 Director Of Federal Sales Relationship Specialty Start Date End Date Rosalino Carmona MD [address] [place] [address] PCP - General Family Medicine 02/17/18 Director Of Federal Sales Relationship Specialty Start Date End Date Rosalino Carmona MD [address] [place] [address] PCP - General Family Medicine 02/17/18 Director Of Federal Sales Relationship Specialty Start Date End Date Rosalino Carmona MD [address] [place] [address] PCP - General Family Medicine 02/17/18 Director Of Federal Sales Relationship Specialty Start Date End Date Rosalino Carmona MD [address] [place] [address] PCP - General Family Medicine 02/17/18 Director Of Federal Sales Relationship Specialty Start Date End Date Rosalino Carmona MD [address] [place] [address] PCP - General Family Medicine 02/17/18 Director Of Federal Sales Relationship Specialty Start Date End Date Rosalino Carmona MD [address] [place] [address] PCP - General Family Medicine 02/17/18 Director Of Federal Sales Relationship Specialty Start Date End Date Rosalino Carmona MD [address] [place] [address] PCP - General Family Medicine 02/17/18 Director Of Federal Sales Relationship Specialty Start Date End Date Rosalino Carmona MD [address] [place] [address] PCP - General Family Medicine 02/17/18 Director Of Federal Sales Relationship Specialty Start Date End Date Rosalino Carmona MD [address] [place] [address] PCP - General Family Medicine 02/17/18 Director Of Federal Sales Relationship Specialty Start Date End Date Rosalino Carmona MD [address] [place] [address] PCP - General Family Medicine 02/17/18 Director Of Federal Sales Relationship Specialty Start Date End Date Rosalino Carmona MD [address] [place] [address] PCP - General Family Medicine 02/17/18 Director Of Federal Sales Relationship Specialty Start Date End Date Rosalino Carmona MD [address] [place] [address] PCP - General Family Medicine 02/17/18 Cherelle Rush, FERCHO [address] [place] [address] Primary Care Administrative Resources Associate 12/24/23 Director Of Federal Sales Relationship Specialty Start Date End Date Rosalino Carmona MD [address] [place] [address] PCP - General Family Medicine 02/17/18 Cherelle Rush, FERCHO [address] [place] [address] Primary Care Administrative Resources Associate 12/24/23 Director Of Federal Sales Relationship Specialty Start Date End Date Rosalino Carmona MD [address] [place] [address] PCP - General Family Medicine 02/17/18 Cherelle Rush, RN [address] [facility] [place] [address] Primary Care Administrative Resources Associate 12/24/23 Director Of Federal Sales Relationship Specialty Start Date End Date Rosalino Carmona MD [address] [place] [address] PCP - General Family Medicine 02/17/18 Cherelle Rush, RN [address] [facility] [place] [address] Primary Care Administrative Resources Associate 12/24/23 Director Of Federal Sales Relationship Specialty Start Date End Date Rosalino Carmona MD [address] [place] [address] PCP - General Family Medicine 02/17/18 Cherelle Rush, RN [address] [facility], [place] [address] Primary Care Administrative Resources Associate 12/24/23 Director Of Federal Sales Relationship Specialty Start Date End Date Rosalino Carmona MD [address] [place] [address] PCP - General Family Medicine 02/17/18 Cherelle Rush, RN [address] [facility], [place] [address] Primary Care Administrative Resources Associate 12/24/23 Director Of Federal Sales Relationship Specialty Start Date End Date Rosalino Carmona MD [address] [place] [address] PCP - General Family Medicine 02/17/18 Cherelle Rush, RN [address] [facility], [place] [address] Primary Care Administrative Resources Associate 12/24/23 Director Of Federal Sales Relationship Specialty Start Date End Date Rosalino Carmona MD [address] [place] [address] PCP - General Family Medicine 02/17/18 Cherelle Rush, FERCHO [address] [place] [address] Primary Care Administrative Resources Associate 12/24/23 Director Of Federal Sales Relationship Specialty Start Date End Date Rosalino Carmona MD [address] [place] [address] PCP - General Family Medicine 02/17/18 Director Of Federal Sales Relationship Specialty Start Date End Date Rosalino Carmona MD [address] [place] [address] PCP - General Family Medicine 02/17/18 Director Of Federal Sales Relationship Specialty Start Date End Date Rosalino Carmona MD [address] [place] [address] PCP - General Family Medicine 02/17/18 Director Of Federal Sales Relationship Specialty Start Date End Date Rosalino Carmona MD [address] [place] [address] PCP - General Family Medicine 02/17/18 Director Of Federal Sales Relationship Specialty Start Date End Date Rosalino Carmona MD [address] [place] [address] PCP - General Family Medicine 02/17/18 Director Of Federal Sales Relationship Specialty Start Date End Date Rosalino Carmona MD [address] [place] [address] PCP - General Family Medicine 02/17/18 Keturah Velasco APRN.CARTON MACHINE OPERATOR [address] [place] [address] Clinical Transplant Coordinator Family Medicine 03/30/24 Orquidea Robertson APRN.CARTON MACHINE OPERATOR [address] [place] [address] Clinical Transplant Coordinator Family Medicine 03/30/24 Director Of Federal Sales Relationship Specialty Start Date End Date Rosalino Carmona MD [address] [place] [address] PCP - General 04/22/20 Director Of Federal Sales Relationship Specialty Start Date End Date Rosalino Carmona MD [address] [place] [address] PCP - General Family Medicine 02/17/18 Keturah Velasco APRN.CARTON MACHINE OPERATOR [address] [facility] [place] [address] Clinical Transplant Coordinator Family Medicine 03/30/24 Orquidea Robertson APRN.CARTON MACHINE OPERATOR [address] [place] [address] Clinical Transplant Coordinator Family Medicine 03/30/24 Director Of Federal Sales Relationship Specialty Start Date End Date Rosalino Carmona MD [address] [place] [address] PCP - General Family Medicine 02/17/18 Keturah Velasco APRN.CARTON MACHINE OPERATOR [address] [facility] [place] [address] Clinical Transplant Coordinator Family Medicine 03/30/24 Orquidea Robertson APRN.CARTON MACHINE OPERATOR [address] [place] [address] Clinical Transplant Coordinator Family Medicine 03/30/24 Director Of Federal Sales Relationship Specialty Start Date End Date Rosalino Carmona MD [address] [place] [address] PCP - General Family Medicine 02/17/18 Keturah Velasco APRN.CARTON MACHINE OPERATOR [address] [place] [address] Clinical Transplant Coordinator [facility] 03/30/24 Orquidea Robertson APRN.CARTON MACHINE OPERATOR [address] [place] [address] [facility] 03/[facility] Director Of Federal Sales Relationship Specialty Start Date End Date Rosalino Carmona MD [address] [place] [address] PCP - General Family Medicine 02/17/18 Keturah Velasco APRN.CARTON MACHINE OPERATOR [address] [place] [address] Clinical Transplant Coordinator Family Medicine 03/30/24 Orquidea Robertson APRN.CARTON MACHINE OPERATOR [address] [place] [address] [facility] 03/30/24 Director Of Federal Sales Relationship Specialty Start Date End Date Rosalino Carmona MD [address] [place] [address] PCP - General Family Medicine 02/17/18 Keturah Velasco APRN.CARTON MACHINE OPERATOR [address] [place] [address] Clinical Transplant Coordinator Family Medicine 03/30/24 Orquidea Robertson APRN.CARTON MACHINE OPERATOR [address] [place] [address] [facility] 03/30/24 Director Of Federal Sales Relationship Specialty Start Date End Date Rosalino Carmona MD [address] [facility] [place] [address] PCP - General Family Medicine 02/17/18 Keturah Velasco PARTITION ASSEMBLY MACHINE OPERATOR.CARTON MACHINE OPERATOR [address] [place] [address] Clinical Transplant Coordinator Family Medicine 03/30/24 Orquidea Robertson PARTITION ASSEMBLY MACHINE OPERATOR.CARTON MACHINE OPERATOR [address] [place] [address] [facility] 03/30/24 Director Of Federal Sales Relationship Specialty Start Date End Date Rosalino Carmona MD [address] [place] [address] PCP - General Family Medicine 02/17/18 Keturah Velasco PARTITION ASSEMBLY MACHINE OPERATOR.CARTON MACHINE OPERATOR [address] [place] [address] [facility] 03/30/24 Orquidea Robertson PARTITION ASSEMBLY MACHINE OPERATOR.CARTON MACHINE OPERATOR [address] [place] [address] [facility] 03/30/24 Director Of Federal Sales Relationship Specialty Start Date End Date Rosalino Carmona MD [address] [place] [address] PCP - General Family Medicine 02/17/18 Keturah Velasco, PARTITION ASSEMBLY MACHINE OPERATOR.CARTON MACHINE OPERATOR [address] [place] [address] Clinical Transplant Coordinator Family Medicine 03/30/24 Orquidea Robertson APRN.[facility] [address] [place] [address] [facility] 03/30/24 Team Status: Active Member Role/Relationship [...] BE BASED ON THE PRIMARY CLINICAL RECORDS. [employer] provides no warranty or guarantee of the accuracy or completeness of information in this document.
[2025-04-05] MEDS: APIXABAN 5 MG TABLET PO (22:02)
[2025-04-05] MEDS: Metoprolol(XL)Succ 50 MG Tablet PO (22:03)
[2025-04-05] MEDS: MELATONIN 3 MG TABLET PO (22:03)
[2025-04-06] VITALS (15 sets, daily range): BP systolic 133–162; BP diastolic 57–76; PULSE 79–94; RESP 10–22; TEMP 36.7–36.8; O2SAT 85–98
[2025-04-06 07:00] LABS: Hematocrit 27.7 % (37-47); Hemoglobin 8.9 g/dL (12.0-15.0); Mean Corp Hgb Conc 32.1 g/dL (32-36); Mean Corpuscular Volume 89.6 fL (81-99); Mean Platelet Vol. 9.7 fl (6.2-12.0); Platelet Count 266 K/mm3 (150-450); RBC Distribution Width CV 17.2 % (11.6-14.6); RBC Distribution Width SD 51.9 fl (35.1-43.9); Red Blood Count 3.09 M/mm3 (4.2-5.4); White Blood Count 15.2 K/mm3 (4.4-11.0)
[2025-04-06 07:35] LABS: Anion Gap 10 (5-15); BUN 23 mg/dL (4-19); BUN/Creat Ratio 20.5 RATIO (10-20); Calcium,Total 8.5 mg/dL (7.6-11.0); Carbon Dioxide 22.9 mmol/L (21.0-32.0); Chloride 106 mmol/L (98-108); Estimated Creatinine Clearance 43.20 ml/min (50-250); Glucose 106 mg/dL (70-99); Magnesium 2.1 mg/dL (1.5-2.2); Potassium 3.3 mmol/L (3.3-5.1)
[2025-04-06] MEDS: APIXABAN 5 MG TABLET PO ×2 (09:43→22:41)
[2025-04-06] MEDS: Furosemide 20 MG/2 ML VIAL IV (09:43)
[2025-04-06] MEDS: Metoprolol(XL)Succ 50 MG Tablet PO ×2 (09:44→22:40)
[2025-04-06] MEDS: 0.9% Saline Lock 10 ML Syringe IV ×2 (09:47→14:19)
--- NOTE | 2025-04-06 12:47 | PCM.PROGNOTE ---
Subjective Subjective Patient seen and examined with her nurse by her bedside. Her son and daughter were by bedside. She was admitted with a complaint of shortness of breath. She has been managed for acute exacerbation of heart failure. She is currently on IV Lasix. She feels her breathing has improved this morning. She was apparently discharged from the last time on 2 L of oxygen but according to her family they had to increase it to 3 and even with that she was saturating in the 80s. Review of systems is otherwise negative. Objective Data Objective Data Vital Signs: Vital Signs Temp Pulse Resp BP Pulse Ox O2 Del Method O2 Flow Rate 98.1 F 79 18 155/57 H 95 Nasal Cannula 4 04/06/25 09:49 04/06/25 10:59 04/06/25 10:59 04/06/25 09:49 04/06/25 09:49 04/06/25 09:49 04/06/25 09:49 FiO2 32 04/06/25 03:17 Oxygen Flow Rate (L/min) 4 Oxygen Delivery Method Nasal Cannula Weight: 200 lb 1 oz Body Mass Index (BMI) 32.3 Intake & Output: Intake and Output for Last 24 Hours 04/04/25 04/05/25 04/06/25 23:59 23:59 23:59 Intake Total 600 / 600 Output Total 1600 / 1600 Balance 600 / -1000 -1600 / -1600 Lab / Micro Data 04/06/25 06:35 04/06/25 06:35 Labs: Laboratory Results - last 24 hr 04/05/25 12:45: WBC 26.9 H, RBC 3.52 L, Hgb 10.3 L, Hct 32.1 L, MCV 91.2, MCH 29.3, MCHC 32.1, RDW Std Deviation 52.3 H, RDW Coeff of August 16.9 H, Plt Count 374, MPV 9.9, Neut % (Auto) Not Reportable, Absolute Neuts (auto) 21.5 H, Absolute Lymphs (auto) 3.23, Total Counted 100, Neutrophils % (Manual) 78 H, Band Neutrophils % 2, Lymphocytes % (Manual) 12 L, Monocytes % (Manual) 5, Eosinophils % (Manual) 1, Metamyelocytes % 1, Myelocytes % 1 H, Diff Path Review August, PT 18.6 H, INR 1.5, APTT 23.5 L, Sodium 134, Potassium 3.6, Chloride 102, Carbon Dioxide 19.7 L, Anion Gap 13, BUN 25 H, Creatinine 0.91, Estim Creat Clear Calc 52.12, Est GFR (MDRD) Non-Af 62, BUN/Creatinine Ratio 27.1 H, Glucose 109 H, Lactic Acid 2.2 H*, Calcium 8.9, Total Bilirubin 1.63 H, AST 27, ALT 18, Alkaline Phosphatase 77, Troponin T High Sens 27 H D, [place] [address] H, Total Protein 6.0, Albumin 3.3 L, Globulin 2.6, Albumin/Globulin Ratio 1.3 04/05/25 14:44: Troponin T Hi Sens 2 Hr 29 H, Procalcitonin 0.14 H 04/05/25 18:36: Lactic Acid 3.2 H*, Troponin T Hi Sens 4Hr 29 H 04/06/25 06:35: WBC 15.2 H, RBC 3.09 L, Hgb 8.9 L, Hct 27.7 L, MCV 89.6, MCH 28.8, MCHC 32.1, RDW Std Deviation 51.9 H, RDW Coeff of August 17.2 H, Plt Count 266, MPV 9.7, Sodium 139, Potassium 3.3, Chloride 106, Carbon Dioxide 22.9, Anion Gap 10, BUN 23 H, Creatinine 1.10, Estim Creat Clear Calc 43.20 L, Est GFR (MDRD) Non-Af 50 L, BUN/Creatinine Ratio 20.5 H, Glucose 106 H, Calcium 8.5, Phosphorus 4.2, Magnesium 2.1 Micro: Microbiology 04/05/25 13:37 Mucosa - Other Respiratory Panel (PCR) - Final ABG Data ABG results: ABG 04/05/25 13:45 Specimen Type ART Sample Site L Radial pH 7.45 Bicarbonate Actual 19.7 L Total CO2 21 Base Excess -4 L O2 Saturation 79 L O2 % 6.0 ABG pCO2 28.1 L ABG pO2 41 L Darrion Test Positive O2 Delivery Device Cannula Vent Mode Not entered Radiography Diagnostic Testing: Radiology Impression Chest CTA 04/05/25 13:05 IMPRESSION: 1. No evidence of pulmonary embolism. 2. Compared to CTA of the chest 03/26/2025, persistent but decreased multifocal lung consolidations, [id number]-left. Findings are consistent with pneumonia. 3. Bilateral pleural effusions, [id number]-[id number]-left. 4. Enlarged mediastinal lymph nodes likely reactive in nature. Reading Location: [facility] Physical Exam Const alert, oriented x3 and no apparent distress General Appearance: cooperative HEENT normocephalic, head/scalp atraumatic, moist oral mucous membranes and oropharynx normal Neck supple and no JVD Lymph Lymphatic: no lymphedema noted Resp Resp Narrative: mildly diminished breath sounds bibasally, no wheezes; mild bilateral crackles. On 4 L of oxygen Cardio regular rate, regular rhythm, S1 normal heart sound, S2 normal heart sound and no murmurs GI normal to inspection, nondistended, normoactive bowel sounds, soft to palpation and non-tender Extremity normal capillary refill, no clubbing, cyanosis or edema and no calf tenderness General Extremity: no tenderness to palpation of joints or extremities Skin General Skin Exam: no breakdown Neuro no focal motor deficits and no sensory deficits noted Motor Exam: general weakness Psych thought process normal, cooperative and affect normal Appearance: appropriate Assessment & Plan Assessment/Plan (1) Acute heart failure with preserved ejection fraction (HFpEF): (2) Acute hypoxemic respiratory failure: PLAN: Plan #Acute on chronic hypoxic respiratory failure due to acute HFpEF On 4 L of oxygen. BNP was 13,000 on admission and CTA of the chest showed new bilateral pleural effusions. Been diuresed with IV Lasix 20 mg twice daily. Monitor intake and output. Fluid restriction to 1500 cc daily. 2D echo from 03/26/2025 showed EF of 55% with normal LV size and pulmonary artery systolic pressure of 54mmHg. will switch to IV lasix drip to help with diuresis. #Hypertensive urgency: Blood pressure was in the 170s to 180s systolic in the ED and is now resolved. On metoprolol, losartan and amlodipine as well as hydralazine. It appears amlodipine to losartan with discontinued at last discharge but it is unclear why. IV hydralazine prn #Leukocytosis: WBC was 26.9 yesterday and is now 15.2 She was recently treated for multifocal pneumonia and was also discharged on p.o. prednisone. This may be accounting for the elevated WBC. procalcitonin is 0.14, therefore mildly elevated. However, she completed a course of antibiotics during last admission. Will hold off on antibiotics for now. #Atrial fibrillation: On metoprolol. On Eliquis. # Anxiety and depression: On Seroquel nightly. There is concern for dementia. Will need follow-up with her PCP with referral to geriatrics for neurology for formal evaluation for dementia. #Hypothyroidism: On Synthroid #Debility and weakness: PT OT on board. Fall precautions. DVT prophylaxis: on eliquis. Charges/Coding Visit Charges Inpatient E&M: 97623 Subs Hosp L2
[2025-04-06] MEDS: Furosemide 500 MG in Empty Viaflex 50 mL 1 EACH CONT INF (14:19)
[2025-04-06] MEDS: MELATONIN 3 MG TABLET PO (22:40)
[2025-04-07] VITALS (14 sets, daily range): BP systolic 121–148; BP diastolic 46–63; PULSE 72–81; RESP 14–20; TEMP 36.6–37; O2SAT 93–100
[2025-04-07] MEDS: APIXABAN 5 MG TABLET PO ×2 (09:09→21:37)
[2025-04-07] MEDS: Metoprolol(XL)Succ 50 MG Tablet PO ×2 (09:10→21:38)
[2025-04-07] MEDS: 0.9% Saline Lock 10 ML Syringe IV ×2 (09:11→11:47)
[2025-04-07 09:45] LABS: Hematocrit 29.0 % (37-47); Hemoglobin 9.2 g/dL (12.0-15.0); Immature Granulocytes Count 0.660 X10^3/uL (0.0-0.0); Mean Corp Hgb Conc 31.7 g/dL (32-36); Mean Corpuscular Volume 90.1 fL (81-99); Mean Platelet Vol. 10.1 fl (6.2-12.0); NRBC Flagged by Analyzer 0.2 % (0-5); Platelet Count 271 K/mm3 (150-450); RBC Distribution Width CV 17.2 % (11.6-14.6); RBC Distribution Width SD 53.9 fl (35.1-43.9); Red Blood Count 3.22 M/mm3 (4.2-5.4); White Blood Count 17.8 K/mm3 (4.4-11.0)
[2025-04-07 10:18] LABS: Anion Gap 14 (5-15); BUN 20 mg/dL (4-19); BUN/Creat Ratio 19.3 RATIO (10-20); Calcium,Total 8.4 mg/dL (7.6-11.0); Carbon Dioxide 27.9 mmol/L (21.0-32.0); Chloride 97 mmol/L (98-108); Estimated Creatinine Clearance 46.58 ml/min (50-250); Glucose 154 mg/dL (70-99); Potassium 2.6 mmol/L (3.3-5.1)
--- NOTE | 2025-04-07 10:40 | PN_ITS ---
Subjective Subjective Patient seen and examined with her nurse by her bedside. Her daughter was by bedside. She had no active complaints. She just finished going to the bathroom. Her oxygen had been turned down to 2 L but after going to the bathroom, had been turned up to 4 L. She denies any coughing or chest pain palpitations dizziness, nausea or vomiting. She is currently on the Lasix drip. Objective Data Objective Data Vital Signs: Vital Signs Temp Pulse Resp BP Pulse Ox O2 Del Method O2 Flow Rate 98 F 81 16 127/53 H 100 Nasal Cannula 2 04/07/25 09:07 04/07/25 09:10 04/07/25 09:07 04/07/25 09:10 04/07/25 09:22 04/07/25 09:22 04/07/25 09:22 FiO2 32 04/06/25 03:17 Oxygen Flow Rate (L/min) 2 Oxygen Delivery Method Nasal Cannula Weight: 199 lb 15.348 oz Body Mass Index (BMI) 32.3 Intake & Output: Intake and Output for Last 24 Hours 04/05/25 04/06/25 04/07/25 23:59 23:59 23:59 Intake Total 600 / 600 940 / 940 Output Total 1600 / 1600 Balance 600 / -1000 -660 / -660 Lab / Micro Data 04/07/25 09:30 04/07/25 09:30 Labs: Laboratory Results - last 24 hr 04/05/25 12:45: Diff Path Review Reviewed 04/07/25 09:30: WBC 17.8 H, RBC 3.22 L, Hgb 9.2 L, Hct 29.0 L, MCV 90.1, MCH 28.6, MCHC 31.7 L, RDW Std Deviation 53.9 H, RDW Coeff of August 17.2 H, Plt Count 271, MPV 10.1, Immature Gran % (Auto) 3.700 H, Neut % (Auto) 85.1 H, Lymph % (Auto) 6.0 L, [place] % (Auto) 4.1, Eos % (Auto) 0.8, Baso % (Auto) 0.3, Absolute Neuts (auto) 15.1 H, Absolute Lymphs (auto) 1.06, Nucleated RBC % 0.2, Sodium 139, Potassium 2.6 L*, Chloride 97 L, Carbon Dioxide 27.9, Anion Gap 14, BUN 20 H, Creatinine 1.02, Estim Creat Clear Calc 46.58 L, Est GFR (MDRD) Non-Af 54 L, BUN/Creatinine Ratio 19.3, Glucose 154 H, Calcium 8.4 Micro: Microbiology 04/05/25 12:45 Blood Culture (Wb) - Left Forearm Bacteria Detection (PCR) - Final 04/05/25 12:45 Blood Culture (Wb) - Left Forearm Blood Culture - Preliminary 04/05/25 13:37 Mucosa - Other Respiratory Panel (PCR) - Final Physical Exam Const alert, oriented x3 and no apparent distress General Appearance: cooperative and comfortable HEENT normocephalic, head/scalp atraumatic, hearing grossly normal bilaterally, nasal mucous membranes and turbinates normal, moist oral mucous membranes and oropharynx normal Eyes PERRL, EOMs intact bilaterally and conjunctivae normal Neck full ROM, supple and no JVD Lymph Lymphatic: no lymphedema noted Chest inspection of chest normal Resp Resp Narrative: mildly diminished breath sounds bibasally, no wheezes; mild bilateral crackles. On 2 L of oxygen Cardio regular rhythm, S1 normal heart sound, S2 normal heart sound, no murmurs and peripheral pulses 2+ throughout Cardio Narrative: A-fib, rate controlled. GI normal to inspection, nondistended, normoactive bowel sounds, soft to palpation, non-tender and non-distended Back/Spine normal ROM Extremity normal capillary refill and no calf tenderness Extremity Narrative: +2 lower bilateral lower extremity pitting pedal edema General Extremity: no tenderness to palpation of joints or extremities Skin no rashes or lesions noted General Skin Exam: no breakdown Neuro moves all extremities, no focal motor deficits and no sensory deficits noted Speech: speech normal Motor Exam: general weakness Psych mental status grossly normal, thought process normal, cooperative and affect normal Appearance: appropriate Assessment & Plan Assessment/Plan (1) Acute heart failure with preserved ejection fraction (HFpEF): (2) Acute hypoxemic respiratory failure: PLAN: Plan #Acute on chronic hypoxic respiratory failure due to acute HFpEF * down to 2 L of oxygen. BNP was 13,000 on admission and CTA of the chest showed new bilateral pleural effusions. * Been diuresed with IV Lasix 20 mg twice daily. Monitor intake and output. * 2D echo from 03/26/2025 showed EF of 55% with normal LV size and pulmonary artery systolic pressure of 54mmHg. * was on lasix drip since yesterday. Will switch to PO lasix 40mg bid * * #Hypertension * was admitted in hypertensive urgency. * Blood pressure was in the 170s to 180s systolic in the ED and is now resolved. On metoprolol, losartan and amlodipine as well as hydralazine. * IV hydralazine prn * #Leukocytosis: * WBC was 15.2 yesterday and is 17.8 today. * She was recently treated for multifocal pneumonia and was also discharged on p.o. prednisone. This may be accounting for the elevated WBC. * procalcitonin is 0.14, therefore mildly elevated. However, she completed a course of antibiotics during last admission. * Will hold off on antibiotics for now. * #Hypokalemia: Potassium is 2.6. Likely due to the IV Lasix drip. Will replace aggressively and monitor. Check magnesium level. #Atrial fibrillation: On metoprolol. On Eliquis. # Anxiety and depression: On Seroquel nightly. There is concern for dementia. Will need follow-up with her PCP with referral to geriatrics for neurology for formal evaluation for dementia. #Hypothyroidism: On Synthroid #Debility and weakness: PT OT on board. Fall precautions. DVT prophylaxis: on eliquis. Charges/Coding Visit Charges Inpatient E&M: 18431 Subs Hosp L2
[2025-04-07 11:25] LABS: Magnesium 2.1 mg/dL (1.5-2.2)
[2025-04-07] MEDS: Potassium Chloride 10mEq/100mL 10 MEQ/100 ML IV.SOLN. 100 MEQ IV BOLUS ×3 (11:47→17:37)
[2025-04-07] MEDS: Potassium Chloride 10mEq/100mL 10 MEQ/100 ML IV.SOLN. 50 MEQ IV BOLUS (13:58)
[2025-04-07] MEDS: MELATONIN 3 MG TABLET PO (21:38)
[2025-04-08] VITALS (12 sets, daily range): BP systolic 121–140; BP diastolic 45–67; PULSE 69–79; RESP 16–18; TEMP 36.4–36.8; O2SAT 88–99
[2025-04-08 07:44] LABS: Hematocrit 28.9 % (37-47); Hemoglobin 9.2 g/dL (12.0-15.0); Immature Granulocytes Count 0.410 X10^3/uL (0.0-0.0); Mean Corp Hgb Conc 31.8 g/dL (32-36); Mean Corpuscular Volume 90.6 fL (81-99); Mean Platelet Vol. 10.5 fl (6.2-12.0); NRBC Flagged by Analyzer 0 % (0-5); Platelet Count 257 K/mm3 (150-450); RBC Distribution Width CV 16.9 % (11.6-14.6); RBC Distribution Width SD 55.9 fl (35.1-43.9); Red Blood Count 3.19 M/mm3 (4.2-5.4); White Blood Count 14.8 K/mm3 (4.4-11.0)
[2025-04-08 08:14] LABS: Anion Gap 12 (5-15); BUN 24 mg/dL (4-19); BUN/Creat Ratio 21.0 RATIO (10-20); Calcium,Total 8.8 mg/dL (7.6-11.0); Carbon Dioxide 25.3 mmol/L (21.0-32.0); Chloride 100 mmol/L (98-108); Estimated Creatinine Clearance 41.31 ml/min (50-250); Glucose 115 mg/dL (70-99); Potassium 3.1 mmol/L (3.3-5.1)
[2025-04-08] MEDS: APIXABAN 5 MG TABLET PO (09:28)
[2025-04-08] MEDS: Metoprolol(XL)Succ 50 MG Tablet PO (09:28)
--- NOTE | 2025-04-08 15:53 | DCINST_ITS ---
Discharge Instructions DC O2, CPAP, BIPAP needs Home O2 Discharge instructions: Yes Type of respiratory needs?: Oxygen Oxygen frequency: With Ambulation (2) Oxygen liters per minute during Ambulation: 2 Dressing / Incision Discharge Activity: Return to Normal Activity Dressing / Incision Call your doctor if you observe: Fever of 101 or Higher, Shortness of breath, Dizziness, Swelling in the ankles and Chest pain Follow Up Care Test Results: Test results from this visit will be discussed in further detail at your follow- up appointment, if applicable. Discharge Plan Admission Admit Date/Time: 04/05/25 14:16 Primary Reason for Your Visit: acute exacerbation of heat fail Attending Provider: Farzana Santiago Primary Care Provider: Rosalino aRza Consulting Providers: Dewey Schofield Instructions Patient Instructions: Coping with Heart Failure, Heart Failure Discharge Orders/Prescriptions Prescriptions: New furosemide 40 mg Tablet 40 mg PO BIDLX Qty: 60 2RF amlodipine 5 mg Tablet 5 mg PO DAILY Qty: 30 2RF potassium chloride [K-Tab] 20 mEq tablet extended release 20 meq PO BID Qty: 60 2RF Continued levothyroxine [Synthroid] 25 mcg tablet 25 mcg PO QDAY ferrous sulfate 325 mg (65 mg iron) tablet 325 mg PO BID hydralazine 50 mg tablet 50 mg PO TID 90 Days Qty: 270 3RF Eliquis 5 mg tablet 5 mg PO BID Qty: 60 12RF metoprolol succinate 50 mg tablet extended release 24 hr 50 mg PO BID Qty: 180 3RF Discontinued amlodipine 10 mg tablet 10 mg PO DAILY Referrals / Follow Up: Rosalino Raza MD [Primary Care Provider, Medical] - Within 1 Week Disposition Disposition (needs filled in before D/C Order can be placed): Home Health Service
--- NOTE | 2025-04-08 15:53 | DS.PCM_ITS ---
Providers Date of Admission: 04/05/25 Date of Discharge: 04/08/25 Primary Care Physician: Dr. Rosalino Raza MD Reason For Visit: ACUTE ON CHRONIC RESPIRATORY FAILURE Diagnosis Discharge Diagnosis (1) Acute heart failure with preserved ejection fraction (HFpEF): Status: Acute Code(s): I50.31 - Acute diastolic (congestive) heart failure (2) Acute hypoxemic respiratory failure: Status: Acute Code(s): J96.01 - Acute respiratory failure with hypoxia Plan #Acute on chronic hypoxic respiratory failure due to acute HFpEF * down to 2 L of oxygen. BNP was 13,000 on admission and CTA of the chest showed new bilateral pleural effusions. * Been diuresed with IV Lasix 20 mg twice daily. Monitor intake and output. * 2D echo from 03/26/2025 showed EF of 55% with normal LV size and pulmonary artery systolic pressure of 54mmHg. * was on lasix drip since yesterday. Will switch to PO lasix 40mg bid * * #Hypertension * was admitted in hypertensive urgency. * Blood pressure was in the 170s to 180s systolic in the ED and is now resolved. On metoprolol, losartan and amlodipine as well as hydralazine. * IV hydralazine prn * #Leukocytosis: * WBC was 15.2 yesterday and is 17.8 today. * She was recently treated for multifocal pneumonia and was also discharged on p.o. prednisone. This may be accounting for the elevated WBC. * procalcitonin is 0.14, therefore mildly elevated. However, she completed a course of antibiotics during last admission. * Will hold off on antibiotics for now. * #Hypokalemia: Potassium is 2.6. Likely due to the IV Lasix drip. Will replace aggressively and monitor. Check magnesium level. #Atrial fibrillation: On metoprolol. On Eliquis. # Anxiety and depression: On Seroquel nightly. There is concern for dementia. Will need follow-up with her PCP with referral to geriatrics for neurology for formal evaluation for dementia. #Hypothyroidism: On Synthroid #Debility and weakness: PT OT on board. Fall precautions. DVT prophylaxis: on eliquis. Medications at Discharge Home Medications hydralazine 50 mg tablet 50 mg PO TID 90 days #270 tabs 06/24/24 Eliquis 5 mg tablet (apixaban) 5 mg PO BID #60 TABLETS 08/19/24 metoprolol succinate 50 mg tablet,extended release 24 hr 50 mg PO BID blood pressure This is a dose increase #180 tabs 10/16/24 levothyroxine 25 mcg tablet (Synthroid) 25 mcg PO QDAY 01/08/25 ferrous sulfate 325 mg (65 mg iron) tablet 325 mg PO BID 03/26/25 amlodipine 5 mg tablet 5 mg PO DAILY #30 tabs 04/08/25 furosemide 40 mg tablet 40 mg PO BIDLX #60 tabs 04/08/25 potassium chloride 20 mEq tablet,extended release (K-Tab) 20 meq PO BID #60 tabs 04/08/25 Hospital Course Operations None Procedures 2-D Echocardiogram Summary of Care Provided Minutes Spent on Discharge: 45 Hospital Course: Patient is a 84-year-old female with past medical history as outlined was admitted to the ED on 04/05/2025 with complaint of shortness of breath. She had been admitted at [facility] from 07/25/2024 to 04/04/2025 and managed for acute hypoxic respiratory failure and sepsis due to multifocal gram- negative pneumonia. She required Airvo at 50 L during that admission. Infectious workup was negative and she was weaned down to oxygen 2 L with exertion and room air at rest on day of discharge. She completed a 7-day course of IV vancomycin and Zosyn during that admission. Her losartan and amlodipine were held on discharge. She went home but subsequently started feeling short of breath and it worsened so she came back to the ED on 04/05/2025. In the ED she was saturating at 80 to 90% on 6 L of oxygen. She was therefore placed on BiPAP. ABG showed pH of 7.45 but pO2 was only 41. Chest CT a showed no evidence of PE but showed persistent and decreased multifocal lung consolidation now worsened with associated bilateral pleural effusions greater on the right than the left. Her BNP was 13,000. She was admitted and managed for acute hypoxic respiratory failure due to acute exacerbation of heart failure preserved ejection fraction. She was diuresed with IV Lasix and placed on Lasix drip. Her shortness of breath resolved and she was weaned down to her baseline 2 L of oxygen with ambulation. She felt much better and was discharged home on 04/08/2025 on p.o. Lasix 40 mg twice daily with potassium supplementation. She did have hypokalemia during admission which was thought to be due to the side effect of Lasix. She remained stable and was discharged home on 04/08/2025. She is follow-up with her primary care doctor within 1 to 2 weeks. Patient was seen and examined prior to discharge. She had no active complaints. She felt much better. Review of systems otherwise negative. Labs and vitals reviewed. Home medication reviewed and reconciled. Physical Exam Const alert, oriented x3 and no apparent distress General Appearance: cooperative and comfortable HEENT normocephalic, head/scalp atraumatic, hearing grossly normal bilaterally and moist oral mucous membranes Mouth: oral and palatal mucosa normal Eyes PERRL, EOMs intact bilaterally and conjunctivae normal Neck full ROM, supple and no JVD Lymph Lymphatic: no lymphedema noted Chest inspection of chest normal Resp Resp Narrative: mildly diminished breath sounds bibasally, no wheezes;no crackles. On 2L of oxygen by nasal canula Cardio regular rhythm, S1 normal heart sound, S2 normal heart sound, no murmurs and peripheral pulses 2+ throughout Cardio Narrative: A-fib, rate controlled. GI normal to inspection, nondistended, normoactive bowel sounds, soft to palpation, non-tender and non-distended Back/Spine normal ROM Extremity normal to inspection, full ROM, normal capillary refill, no clubbing, cyanosis or edema and no calf tenderness General Extremity: no tenderness to palpation of joints or extremities Skin no rashes or lesions noted General Skin Exam: no breakdown Neuro CN's II-XII intact bilaterally, moves all extremities, no focal motor deficits and no sensory deficits noted Sensorium / Orientation: awake and alert Speech: speech normal Motor Exam: general weakness Psych mental status grossly normal, thought process normal, cooperative and affect normal Appearance: appropriate Weight / BMI Weight Weight: 199 lb 15.348 oz Body Mass Index (BMI) 32.3 ABG / Lab / Microbiology Data 04/08/25 07:10 04/08/25 07:10 Laboratory: Laboratory Results - last 24 hr 04/08/25 07:10: WBC 14.8 H, RBC 3.19 L, Hgb 9.2 L, Hct 28.9 L, MCV 90.6, MCH 28.8, MCHC 31.8 L, RDW Std Deviation 55.9 H, RDW Coeff of August 16.9 H, Plt Count 257, MPV 10.5, Immature Gran % (Auto) 2.800 H, Neut % (Auto) 84.5 H, Lymph % (Auto) 6.2 L, [place] % (Auto) 4.7, Eos % (Auto) 1.5, Baso % (Auto) 0.3, Absolute Neuts (auto) 12.5 H, Absolute Lymphs (auto) 0.92, Nucleated RBC % 0, Sodium 138, Potassium 3.1 L, Chloride 100, Carbon Dioxide 25.3, Anion Gap 12, BUN 24 H, Creatinine 1.15, Estim Creat Clear Calc 41.31 L, Est GFR (MDRD) Non-Af 47 L, B UN/Creatinine Ratio 21.0 H, Glucose 115 H, Calcium 8.8 Microbiology: Microbiology 04/05/25 12:45 Blood Culture (Wb) - Left Forearm Bacteria Detection (PCR) - Final 04/05/25 12:45 Blood Culture (Wb) - Left Forearm Blood Culture - Preliminary Gram positive organism 04/05/25 13:37 Mucosa - Other Respiratory Panel (PCR) - Final D/C Instructions Discharge Activity: Return to Normal Activity Weight Bearing Status: Weight bearing as tolerated Call your doctor if you observe: Fever of 101 or Higher, Shortness of breath, Dizziness, Swelling in the ankles and Chest pain DC O2, CPAP, BIPAP Needs Home O2 Discharge instructions: Yes Type of respiratory needs?: Oxygen Oxygen frequency: With Ambulation (2) Oxygen liters per minute during Ambulation: 2 DC home with Oxygen: Yes Home O2 MD Review: I have reviewed the oxygen testing, and the patient qualifies for home oxygen equipment and portability. The patient is mobile in the home and the community. Patient's Goals Of Care - F/U Goals Reviewed Goals of care reviewed with patient: Yes - No change Meaningful Use Info Meaningful Use Meaningful Use Diagnoses (Choose all that apply): CHF CHF MARIANNE/ARB ordered at discharge?: No Reason MARIANNE/ARB not ordered?: Not indicated Documented LVEF (%): 55 Discharge Plan Admission Admit Date/Time: 04/05/25 14:16 Primary Reason for Your Visit: acute exacerbation of heat fail Attending Provider: Farzana Santiago Primary Care Provider: Rosalino Raza Consulting Providers: Dewey Schofield Instructions Patient Instructions: Coping with Heart Failure, Heart Failure Discharge Orders/Prescriptions Prescriptions: New furosemide 40 mg Tablet 40 mg PO BIDLX Qty: 60 2RF amlodipine 5 mg Tablet 5 mg PO DAILY Qty: 30 2RF potassium chloride [K-Tab] 20 mEq tablet extended release 20 meq PO BID Qty: 60 2RF Continued levothyroxine [Synthroid] 25 mcg tablet 25 mcg PO QDAY ferrous sulfate 325 mg (65 mg iron) tablet 325 mg PO BID hydralazine 50 mg tablet 50 mg PO TID 90 Days Qty: 270 3RF Eliquis 5 mg tablet 5 mg PO BID Qty: 60 12RF metoprolol succinate 50 mg tablet extended release 24 hr 50 mg PO BID Qty: 180 3RF Discontinued amlodipine 10 mg tablet 10 mg PO DAILY Referrals / Follow Up: Rosalino Raza MD [Primary Care Provider, Medical] - Within 1 Week Disposition Disposition (needs filled in before D/C Order can be placed): Home Health Service Charges/Coding Visit Charges Inpatient E&M: 43289 Disch Hosp >30min
--- NOTE | 2025-04-08 16:25 | CASEMGMT ---
Patient has order for discharge. FERCHO CROW made referral to [facility] to re-establish HHC. [facility] is able to accept with planned start of care for Saturday. FERCHO CROW received script for updated home oyxgen at discharge. FERCHO CROW sent updated script to [facility] requested additional portable tank be delivered to patient. FERCHO CROW in to patient's room to discuss discharge, and daughter at bedside. FERCHO CROW updated patient and family regarding resumption of [facility] and start of care for Saturday. FERCHO CROW updated patient and family that FERCHO CROW requested [employer] to deliver additional tanks to patient's home. Patient and family voiced appreciation and had no further questions or concerns. FERCHO CROW updated discharge plan.
[2025-04-08] MEDS: Potassium Chloride Oral Tablet 20 MEQ 40 MEQ PO (16:31)
--- NOTE | 2025-04-08 16:34 | PHA.DC.MR.R ---
Pharmacy [place] Med Reconciliation Pharmacy Service has performed discharge medication reconciliation for this patient. The patient's discharge medication list was reviewed for discrepancies and discrepancies were resolved. Medications at Discharge Home Medications hydralazine 50 mg tablet 50 mg PO TID 90 days #270 tabs 06/24/24 Eliquis 5 mg tablet (apixaban) 5 mg PO BID #60 TABLETS 08/19/24 metoprolol succinate 50 mg tablet,extended release 24 hr 50 mg PO BID blood pressure This is a dose increase #180 tabs 10/16/24 levothyroxine 25 mcg tablet (Synthroid) 25 mcg PO QDAY 01/08/25 ferrous sulfate 325 mg (65 mg iron) tablet 325 mg PO BID 03/26/25 amlodipine 5 mg tablet 5 mg PO DAILY #30 tabs 04/08/25 furosemide 40 mg tablet 40 mg PO BIDLX #60 tabs 04/08/25 potassium chloride 20 mEq tablet,extended release (K-Tab) 20 meq PO BID #60 tabs 04/08/25
== END 2025-04-08 18:09 | disposition home health service (06) | DRG 291 ==
LOC: ED 14:03 → PCU 14:55
PROVIDERS: Admitting Provider Hospitalist; Emergency Provider Surgery; PCP Family Medicine; Visit Provider Student in an Organized Health Care Education/Training Program
DX: I11.0 Hypertensive heart disease with heart failure (principal); J96.21 Acute and chronic respiratory failure with hypoxia; I50.31 Acute diastolic (congestive) heart failure; I48.19 Other persistent atrial fibrillation; Z66 Do not resuscitate; E03.9 Hypothyroidism, unspecified; F32.A Depression, unspecified; D50.9 Iron deficiency anemia, unspecified; I16.0 Hypertensive urgency; E87.6 Hypokalemia; F41.9 Anxiety disorder, unspecified; D72.829 Elevated white blood cell count, unspecified; Z79.01 Long term (current) use of anticoagulants; Z90.710 Acquired absence of both cervix and uterus; Z87.891 Personal history of nicotine dependence; Z79.899 Other long term (current) drug therapy; R53.81 Other malaise; Z90.49 Acquired absence of other specified parts of digestive tract; Z79.890 Hormone replacement therapy
CPT/HCPCS: 36415; 36600; 71275; 80048; 80053; 82803; 83605; 83735; 83880; 84100; 84145; 84484; 85025; 85027; 85610; 85730; 87040; 87077; 87149; 87633; 93005; 94002; 94003; 94640; 94668; 94762; 97162; 97166; 97530; 97802; 99285; Q9967; A4216; J1938

== ENCOUNTER 2025-04-20 11:26 | Outpatient (RCR) | payer MEDICARE, OTHER, SELFPAY ==
[2025-04-20 11:49] LABS: Hematocrit 31.6 % (37-47); Hemoglobin 9.8 g/dL (12.0-15.0); Immature Granulocytes Count 0.360 X10^3/uL (0.0-0.0); Mean Corp Hgb Conc 31.0 g/dL (32-36); Mean Corpuscular Volume 91.9 fL (81-99); Mean Platelet Vol. 11.2 fl (6.2-12.0); NRBC Flagged by Analyzer 0 % (0-5); Platelet Count 355 K/mm3 (150-450); RBC Distribution Width CV 16.3 % (11.6-14.6); RBC Distribution Width SD 54.4 fl (35.1-43.9); Red Blood Count 3.44 M/mm3 (4.2-5.4); White Blood Count 8.1 K/mm3 (4.4-11.0)
[2025-04-20 12:29] LABS: AST(SGOT) 22 U/L (<=31); Alanine Aminotransfer ALT/SGPT 14 U/L (<=34); Albumin, Serum 3.5 g/dL (3.4-4.8); Alkaline Phosphatase 83 U/L (35-104); Anion Gap 10 (7-18); BUN 17 mg/dL (4-19); BUN/Creat Ratio 15.4 RATIO (10-20); Calcium,Total 9.3 mg/dL (7.6-11.0); Carbon Dioxide 25.2 mmol/L (20.0-29.0); Chloride 100 mmol/L (96-106); Globulin 3.0 g/dL (2.2-4.2); Glucose 124 mg/dL (70-99); Potassium 3.5 mmol/L (3.5-5.1)
== END 2025-04-20 18:00 | disposition home or self-care (01) ==
LOC: HHLAB 11:26
PROVIDERS: PCP Family Medicine; Referring Provider Registered Nurse; Visit Provider Registered Nurse
DX: D64.9 Anemia, unspecified (principal); E03.9 Hypothyroidism, unspecified
CPT/HCPCS: 80053; 84443; 85025